=== PATIENT | female | born 1960 | race African-American/Black ===

== ENCOUNTER 2018-03-06 15:32 | Emergency (ER) | payer OTHER ==
[2018-03-06] MEDS ORDERED: NA CHLORIDE 0.9% 1,000 ML ONE ×2 (17:08→18:19)
[2018-03-06] MEDS ORDERED: PROMETHAZINE 25 MG/ML VIAL ONE ×2 (17:08→19:00)
[2018-03-06] MEDS ORDERED: MEPERIDINE HCL 25 MG/0.5 ML ONE ×2 (17:08→18:10)
[2018-03-06 18:02] LABS: Hematocrit 31.2 % (36.0-45.0)
[2018-03-06 18:06] LABS: Absolute Lymphocytes (CBC) 5.6 K/uL (0.7-4.9); Absolute Monocytes 1.6 K/uL (0.1-1.3); Absolute Neutrophil 12.8 K/uL (1.8-8.0); Basophils % 0.8 % (0-1.3); Eosinophils % 1.5 % (0-4.4); Lymphocytes % 27.5 % (15.3-44.8); MCH 22.8 pg (27.0-35.0); MCV 74.2 fL (80-100); Monocytes % 7.8 % (3.3-12.3); RBC Red Blood Cell Count 4.21 M/uL (3.86-4.86)
[2018-03-06 18:09] LABS: Potassium 3.8 mEq/L (3.6-5.0)
[2018-03-06 18:11] LABS: Urine Blood NEGATIVE (NEG); Urine Glucose NEGATIVE (NEG); Urine Protein NEGATIVE (NEG); Urine Specific Gravity 1.015 (1.005-1.030); Urine pH 5.5 (5.0-7.0)
[2018-03-06 18:15] LABS: Albumin 3.3 g/dL (3.2-5.5); Bilirubin Direct 0.1 mg/dL (0-0.2); Bilirubin Total 0.2 mg/dL (0.3-1.2); Protein, Total 7.2 g/dL (6.0-8.3)
--- NOTE | 2018-03-06 18:52 | RAD REPORT ---
EXAM DESCRIPTION: CT - Abdomen Pelvis W Contrast - 03/06/2018 6:44 pm CLINICAL HISTORY: Abdominal pain history of pancreatitis COMPARISON: CT imaging December 03 TECHNIQUE: CT imaging of the abdomen and pelvis was performed following hand injection of non-ionic IV contrast. No oral contrast given. Trace hyperdensity in the stomach may be ingested medication. All CT scans are performed using dose optimization technique as appropriate and may include automated exposure control or mA/KV adjustment according to patient size. FINDINGS: No suspicious findings in the lung bases. Liver and spleen show no suspicious findings. Gallbladder is absent. Biliary tree within normal limit s for a post cholecystectomy patient. No solid or cystic mass of the pancreas. No acute pancreatitis findings on CT imaging. Gallbladder and biliary tree are also without suspicious finding. Symmetric renal function is seen with no hydronephrosis or suspicious renal mass. No pyelonephritis o r acute renal parenchymal process. No urinary bladder abnormality. Uterus is absent. Ovaries are abse nt or atrophic. No dilated bowel loops or bowel wall thickening. No free air, free fluid or inflammatory stranding. No hernia, mass or bulky lymphadenopathy. The urinary bladder is without significant finding. No adr enal abnormality. No suspicious bony findings. IMPRESSION: Contrast enhanced CT abdomen and pelvis showing no significant or suspicious finding. Gallbladder is absent. Minimal biliary dilatation is not outside of normal range.
[2018-03-06 19:30] LABS: Urine White Blood Cell Casts OK
[2018-03-06 19:31] LABS: Blood Morphology Comment NOT SEEN (NOT SEEN); Platelet Estimate ADEQ
--- NOTE | 2018-03-06 19:48 | ER ---
Nurse's Notes [facility] Name: Leila Stein Age: 57 yrs Sex: Female : 1960 Arrival Date: 03/06/2018 Time: 15:34 Bed 13 Private MD: Jacinto Florez H Diagnosis: Abdominal and pelvic pain Presentation: 03/06 15:46 Presenting complaint: Patient states: N/V abdominal pain. Patient left [place] AMA aj last night after refusing to be admitted for pancreatitis. Patient then went to follow up with Dr Florez but was told to come to ER. Transition of care: patient was not received from another setting of care. Onset of symptoms was March 02, 2018. Care prior to arrival: None. 15:46 Method Of Arrival: Wheelchair aj 15:46 Acuity: JARROD 3 aj 16:28 Initial Sepsis Screen: Does the patient meet any 2 criteria? No. Patient's initial hj sepsis screen is negative. Does the patient have a suspected source of infection? No. Patient's initial sepsis screen is negative. Triage Assessment: 15:50 General: Appears in no apparent distress. uncomfortable, Behavior is calm, cooperative, aj appropriate for age. Pain: Complains of pain in right upper quadrant and left upper quadrant. Neuro: Level of Consciousness is awake, alert, obeys commands, Oriented to person, place, time, situation, Appropriate for age. Respiratory: Airway is patent Respiratory effort is even, unlabored, Respiratory pattern is regular, symmetrical. GI: Abdomen is flat, non-distended, Reports upper abdominal pain, nausea, vomiting. Derm: Skin is intact, is healthy with good turgor, Skin is pink, warm \T\ dry. normal. Historical: - Allergies: 15:50 Diphenhydramine; aj 15:50 Ibuprofen; aj 15:50 Kenalog; aj 15:50 levabid; aj 15:50 Levaquin; aj 15:50 Naloxone; aj 15:50 Penbutolol; aj 15:50 PENICILLINS; aj 15:50 PENTAZOCINE; aj 15:50 Tape; aj 15:50 Talwin; aj 15:50 Triamcinolone Acetonide; aj - Home Meds: 15:50 Alprazolam Oral [Active]; carvedilol 6.25 mg Oral tab 1 tab 2 times per day [Active]; aj Nexium Oral [Active]; Phenergan Oral [Active]; Tylenol #3 Oral [Active]; Creon 24,000-76,000 -120,000 unit Oral cpDR [Active]; dicyclomine 20 mg Oral tab 1 tab 3 times per day [Active]; gabapentin 100 mg Oral cap 3 caps 3 times per day [Active]; hydroxyzine HCl 25 mg Oral tab 1 tab every 4-6 hrs as needed [Active]; losartan 100 mg Oral tab 1 tab once daily [Active]; meclizine 12.5 mg Oral tab 2 tabs 3 times per day [Active]; metoclopramide HCl 10 mg Oral tab 1 tab twice a day [Active]; montelukast 10 mg Oral tab 1 tab once daily [Active]; Nexium 40 mg Oral cpDR 1 cap once daily [Active]; pantoprazole 40 mg Oral TbEC once daily [Active]; sertraline 50 mg Oral tab 1 tab once daily [Active]; potassium chloride 10 mEq Oral cpER 1 cap once daily [Active]; sucralfate 1 gram Oral tab 1 tab 4 times per day [Active]; Xanax 0.25 mg Oral tab 1 tab nightly [Active]; Zofran (as hydrochloride) 4 mg Oral tab 2 tabs 3 times per day for as needed [Active]; - PMHx: 15:50 CHF; Hypertension; Pancreatitis; aj - PSHx: 15:50 Hysterectomy; brain surgery; Cholecystectomy; neck; aj - Immunization history:: Adult Immunizations up to date. - Social history:: Smoking status: Patient/guardian denies using tobacco. Screenin:28 Abuse screen: Denies threats or abuse. Denies injuries from another. Nutritional hj screening: No deficits noted. Tuberculosis screening: No symptoms or risk factors identified. Fall Risk None identified. Assessment: 16:29 General: Appears in no apparent distress. uncomfortable, Behavior is calm, cooperative, hj appropriate for age. Pain: Complains of pain in abdomen and left upper quadrant and right upper quadrant. Neuro: Level of Consciousness is awake, alert, confused, Oriented to person, place, time, situation, Appropriate for age. Cardiovascular: Capillary refill < 3 seconds Patient's skin is warm and dry. Respiratory: Airway is patent Respiratory effort is even, unlabored, Respiratory pattern is regular, symmetrical. GI: Abdomen is non-distended. : No signs and/or symptoms were reported regarding the genitourinary system. EENT: No signs and/or symptoms were reported regarding the EENT system. Derm: No signs and/or symptoms reported regarding the dermatologic system. Musculoskeletal: No signs and/or symptoms reported regarding the musculoskeletal system. 17:30 Reassessment: Patient and/or family updated on plan of care and expected duration. Pain hj level reassessed. Patient is alert, oriented x 3, equal unlabored respirations, skin warm/dry/pink. awaiting results; for admit;. 17:59 Reassessment: awaiting results; complaints of pain 07/30; provider notified;. hj 18:37 Reassessment: Patient and/or family updated on plan of care and expected duration. Pain hj level reassessed. Patient is alert, oriented x 3, equal unlabored respirations, skin warm/dry/pink. wheeled to CT;. 19:10 Reassessment: Report received from AMAURY Mccoy. bs1 19:10 General: Appears in no apparent distress. Behavior is calm, flat. Pain: Complains of bs1 pain in abdomen and left upper quadrant and right upper quadrant. Neuro: Level of Consciousness is awake, alert, Oriented to person, place, time, situation. Cardiovascular: Denies chest pain, shortness of breath, Heart tones S1 S2 present Capillary refill < 3 seconds Patient's skin is warm and dry. Respiratory: Airway is patent Trachea midline Respiratory effort is even, unlabored, Respiratory pattern is regular, symmetrical, Breath sounds are clear bilaterally. GI: Abdomen is round non-distended, Bowel sounds present X 4 quads. Reports nausea. : No deficits noted. No signs and/or symptoms were reported regarding the genitourinary system. EENT: No deficits noted. No signs and/or symptoms were reported regarding the EENT system. Derm: Skin is intact, Skin is pink, warm \T\ dry. Musculoskeletal: Circulation, motion, and sensation intact. Capillary refill < 3 seconds, Range of motion: intact in all extremities. 20:00 Reassessment: Patient appears in no apparent distress at this time. Patient and/or bs1 family updated on plan of care and expected duration. Pain level reassessed. Patient is alert, oriented x 3, equal unlabored respirations, skin warm/dry/pink. Patient being discharged. Vital Signs: 15:50 BP 102 / 71; Pulse 78; Resp 19; Temp 97.8; Pulse Ox 98% on R/A; Weight 81.65 kg; Height aj 5 ft. 3 in. (160.02 cm); 16:30 BP 105 / 70; Pulse 79; Resp 18; Pulse Ox 100% on R/A; hj 17:30 BP 110 / 75; Pulse 75; Resp 18; Pulse Ox 100% on R/A; hj 18:38 BP 115 / 74; Pulse 78; Resp 18; Pulse Ox 100% on R/A; hj 19:38 BP 124 / 75; Pulse 71; Pulse Ox 97% on R/A; bs1 20:00 BP 120 / 74; Pulse 69; Resp 16; Temp 98(O); Pulse Ox 100% on R/A; Pain 3/10; bs1 15:50 Body Mass Index 31.89 (81.65 kg, 160.02 cm) aj ED Course: 15:34 Patient arrived in ED. mr 15:35 Jacinto Florez MD is Private Physician. mr 15:47 Triage completed. aj 15:50 Arm band placed on left wrist. Patient placed in waiting room, Patient notified of wait aj time. 16:27 Darius Perales, AMAURY is Primary Nurse. hj 16:27 Jeremías Teague PA is PHCP. jr8 16:27 Shan Dumont MD is Attending Physician. jr8 16:29 Patient has correct armband on for positive identification. Placed in gown. Bed in low hj position. Call light in reach. Side rails up X 1. 17:16 Initial lab(s) drawn, by me, sent to lab. Urine collected: clean catch specimen. hj Inserted saline lock: 22 gauge in right EJ, using aseptic technique. ,using aseptic technique. PORSHA Teague Blood collected. 18:08 Notified Nurse Practitioner and/or Physician Knocker Off of a critical lab result(s), iw WBC=20.6. 18:11 Radiology exam delayed due to lab results not completed at this time. (BUN/Creatinine). vm2 18:[address] via stretcher. kw1 18:44 CT completed. Patient tolerated procedure well. Patient moved back from CT. kw1 18:44 CT Abd/Pelvis - W/Contrast In Process Unspecified. EDMS 19:21 Primary Nurse role handed off by Darius Perales RN rg2 19:24 Pati Ramos, AMAURY is Primary Nurse. bs1 19:47 Jacinto Florez MD is Referral Physician. jr8 19:59 No provider procedures requiring assistance completed. IV discontinued, bleeding bs1 controlled, No redness/swelling at site. Pressure dressing applied. Administered Medications: 17:04 Drug: NS 0.9% 1000 ml Route: IV; Rate: 1000 ml; Site: right jugular; hj 20:03 Follow up: IV Status: Completed infusion bs1 17:04 Drug: Demerol 25 mg Route: IVP; Site: right jugular; hj 17:55 Follow up: Response: No adverse reaction; Pain is unchanged, physician notified iw 17:04 Drug: Phenergan 12.5 mg Route: IVP; Site: right jugular; hj 17:55 Follow up: Response: No adverse reaction iw 18:10 Drug: NS 0.9% 1000 ml Route: IV; Rate: 100 ml/hr; Site: right jugular; hj 20:03 Follow up: IV Status: Order to discontinue infusion bs1 20:03 Follow up: IV Intake: 100ml bs1 18:14 Drug: Demerol 25 mg Route: IVP; Site: right jugular; hj 18:16 Follow up: Response: No adverse reaction hj 19:11 Drug: Phenergan 12.5 mg Route: IVP; Site: right jugular; bs1 20:02 Follow up: Response: No adverse reaction bs1 Intake: 20:03 IV: 100ml; Total: 100ml. bs1 Outcome: 19:47 Discharge ordered by . jr8 19:59 Discharged to home ambulatory. bs1 19:59 Condition: stable 19:59 Discharge instructions given to patient, Instructed on discharge instructions, follow up and referral plans. Demonstrated understanding of instructions, follow-up care, Patient states understanding of POC and need for following up With Dr Florez. 20:04 Patient left the ED. bs1 Signatures: Dispatcher [employer] EDMS Haile Santos rg2 Alexandria Huber RN RN aj Rivera, Maria mr Elise Bustamante RN RN Jeremías Teague PA PA jr8 Darius Perales RN RN hj McGuire, Victoria [facility] Diamante Cook kw1 Pati Ramos, RN RN bs1
--- NOTE | 2018-03-06 19:48 | EDPHYS ---
Physician Documentation [facility] Name: Leila Stein Age: 57 yrs Sex: Female : 1960 Arrival Date: 03/06/2018 Time: 15:34 Bed 13 Private MD: Jacinto Florez H ED Physician Shan Dumont HPI: 03/06 16:56 This 57 yrs old Black Female presents to ER via Wheelchair with complaints of jr8 Nausea/Vomiting. 16:56 The patient presents to the emergency department with nausea, vomiting, abdominal pain. jr8 Onset: The symptoms/episode began/occurred acutely, 2 day(s) ago. Possible causes: panceatitis. The symptoms are aggravated by nothing. The symptoms are alleviated by nothing. Associated signs and symptoms: The patient has no apparent associated signs or symptoms. Severity of symptoms: At their worst the symptoms were moderate in the emergency department the symptoms are unchanged. The patient has experienced similar episodes in the past, several times. The patient has been recently seen by a physician:. Patient stated that she has history of pancreatitis. Had flare up two days ago that is not getting better. Went to see Dr. Florez today and was sent to ED . Historical: - Allergies: 15:50 Diphenhydramine; aj 15:50 Ibuprofen; aj 15:50 Kenalog; aj 15:50 levabid; aj 15:50 Levaquin; aj 15:50 Naloxone; aj 15:50 Penbutolol; aj 15:50 PENICILLINS; aj 15:50 PENTAZOCINE; aj 15:50 Tape; aj 15:50 Talwin; aj 15:50 Triamcinolone Acetonide; aj - Home Meds: 15:50 Alprazolam Oral [Active]; carvedilol 6.25 mg Oral tab 1 tab 2 times per day [Active]; aj Nexium Oral [Active]; Phenergan Oral [Active]; Tylenol #3 Oral [Active]; Creon 24,000-76,000 -120,000 unit Oral cpDR [Active]; dicyclomine 20 mg Oral tab 1 tab 3 times per day [Active]; gabapentin 100 mg Oral cap 3 caps 3 times per day [Active]; hydroxyzine HCl 25 mg Oral tab 1 tab every 4-6 hrs as needed [Active]; losartan 100 mg Oral tab 1 tab once daily [Active]; meclizine 12.5 mg Oral tab 2 tabs 3 times per day [Active]; metoclopramide HCl 10 mg Oral tab 1 tab twice a day [Active]; montelukast 10 mg Oral tab 1 tab once daily [Active]; Nexium 40 mg Oral cpDR 1 cap once daily [Active]; pantoprazole 40 mg Oral TbEC once daily [Active]; sertraline 50 mg Oral tab 1 tab once daily [Active]; potassium chloride 10 mEq Oral cpER 1 cap once daily [Active]; sucralfate 1 gram Oral tab 1 tab 4 times per day [Active]; Xanax 0.25 mg Oral tab 1 tab nightly [Active]; Zofran (as hydrochloride) 4 mg Oral tab 2 tabs 3 times per day for as needed [Active]; - PMHx: 15:50 CHF; Hypertension; Pancreatitis; aj - PSHx: 15:50 Hysterectomy; brain surgery; Cholecystectomy; neck; aj - Immunization history:: Adult Immunizations up to date. - Social history:: Smoking status: Patient/guardian denies using tobacco. ROS: 16:56 Eyes: Negative for injury, pain, redness, and discharge, ENT: Negative for injury, jr8 pain, and discharge, Neck: Negative for injury, pain, and swelling, Cardiovascular: Negative for chest pain, palpitations, and edema, Respiratory: Negative for shortness of breath, cough, wheezing, and pleuritic chest pain, Back: Negative for injury and pain, MS/Extremity: Negative for injury and deformity, Skin: Negative for injury, rash, and discoloration, Neuro: Negative for headache, weakness, numbness, tingling, and seizure. 16:56 Abdomen/GI: Positive for abdominal pain, nausea and vomiting, abdominal distension, Negative for diarrhea, constipation, abdominal cramps, anorexia, dysphagia, hematemesis, black/tarry stool, rectal pain, rectal bleeding, bowel incontinence, flatulence. Exam: 16:56 Eyes: Pupils equal round and reactive to light, extra-ocular motions intact. Lids and jr8 lashes normal. Conjunctiva and sclera are non-icteric and not injected. Cornea within normal limits. Periorbital areas with no swelling, redness, or edema. ENT: Nares patent. No nasal discharge, no septal abnormalities noted. Tympanic membranes are normal and external auditory canals are clear. Oropharynx with no redness, swelling, or masses, exudates, or evidence of obstruction, uvula midline. Mucous membranes moist. Neck: Trachea midline, no thyromegaly or masses palpated, and no cervical lymphadenopathy. Supple, full range of motion without nuchal rigidity, or vertebral point tenderness. No Meningismus. Cardiovascular: Regular rate and rhythm with a normal S1 and S2. No gallops, murmurs, or rubs. Normal PMI, no JVD. No pulse deficits. Respiratory: Lungs have equal breath sounds bilaterally, clear to auscultation and percussion. No rales, rhonchi or wheezes noted. No increased work of breathing, no retractions or nasal flaring. Back: No spinal tenderness. No costovertebral tenderness. Full range of motion. Skin: Warm, dry with normal turgor. Normal color with no rashes, no lesions, and no evidence of cellulitis. MS/ Extremity: Pulses equal, no cyanosis. Neurovascular intact. Full, normal range of motion. Neuro: Awake and alert, GCS 15, oriented to person, place, time, and situation. Cranial nerves II-XII grossly intact. Motor strength 5/5 in all extremities. Sensory grossly intact. Cerebellar exam normal. Normal gait. 16:56 Abdomen/GI: Inspection: distension, that is mild, Bowel sounds: active, all quadrants, Palpation: soft, in all quadrants, moderate abdominal tenderness, in the epigastric area, mass, is not appreciated, rebound tenderness, is not appreciated, voluntary guarding, is not appreciated, involuntary guarding, is not appreciated, no appreciated organomegaly, Indicators: McBurney's point is not tender, Martínez's sign is negative, Rovsing's sign is negative, Liver: no appreciated palpable abnormalities, tenderness, is not appreciated. Vital Signs: 15:50 BP 102 / 71; Pulse 78; Resp 19; Temp 97.8; Pulse Ox 98% on R/A; Weight 81.65 kg; Height aj 5 ft. 3 in. (160.02 cm); 16:30 BP 105 / 70; Pulse 79; Resp 18; Pulse Ox 100% on R/A; hj 17:30 BP 110 / 75; Pulse 75; Resp 18; Pulse Ox 100% on R/A; hj 18:38 BP 115 / 74; Pulse 78; Resp 18; Pulse Ox 100% on R/A; hj 19:38 BP 124 / 75; Pulse 71; Pulse Ox 97% on R/A; bs1 20:00 BP 120 / 74; Pulse 69; Resp 16; Temp 98(O); Pulse Ox 100% on R/A; Pain 3/10; bs1 15:50 Body Mass Index 31.89 (81.65 kg, 160.02 cm) aj MDM: 16:27 Patient medically screened. jr8 19:44 Data reviewed: vital signs, nurses notes, old medical records, lab test result(s), jr8 radiologic studies, CT scan, and as a result, I will discharge patient. Data interpreted: Pulse oximetry: on room air is 100 %. Interpretation: normal. Counseling: I had a detailed discussion with the patient and/or guardian regarding: the historical points, exam findings, and any diagnostic results supporting the discharge/admit diagnosis, lab results, radiology results, the need for outpatient follow up, a protection [employer], to return to the emergency department if symptoms worsen or persist or if there are any questions or concerns that arise at home. ED course: Patient sleeping in exam room. Counseled patient on labs and imaging. No acute pancreatitis or other acute abdominal finding. Patient upon old [facility] records has had this before and with extensive work up with no finding. White cell count elevated in past a few times as well. Discussed case with Dr. Feldman. Feels patient can go home and if she were to run fever or have any new development to come back. Patient is ok with this at this time . 03/06 16:28 Order name: Basic Metabolic Panel; Complete Time: 18:36 [facility] 03/06 16:28 Order name: CBC with Diff; Complete Time: 19:34 [facility] 03/06 16:28 Order name: Creatinine for Radiology; Complete Time: 18:09 [facility] 03/06 16:28 Order name: Hepatic Function; Complete Time: 18:36 03/06 16:28 Order name: Lipase; Complete Time: 18:36 [facility] 03/06 16:52 Order name: Urine Dipstick--Ancillary (enter results); Complete Time: 18:13 03/06 16:52 Order name: Urine --Ancillary (enter results); Complete Time: 18:13 03/06 18:08 Order name: CBC Smear Scan; Complete Time: 19:34 [facility] 03/06 18:09 Order name: CT Abd/Pelvis - W/Contrast; Complete Time: 18:53 [facility] 03/06 16:28 Order name: IV Saline Lock; Complete Time: 17:05 jr8 03/06 16:28 Order name: Labs collected and sent; Complete Time: 17:05 8 03/06 16:28 Order name: Urine Dipstick-Ancillary (obtain specimen); Complete Time: 17: 8 Administered Medications: 17:04 Drug: NS 0.9% 1000 ml Route: IV; Rate: 1000 ml; Site: right jugular; hj 20:03 Follow up: IV Status: Completed infusion bs1 17:04 Drug: Demerol 25 mg Route: IVP; Site: right jugular; hj 17:55 Follow up: Response: No adverse reaction; Pain is unchanged, physician notified iw 17:04 Drug: Phenergan 12.5 mg Route: IVP; Site: right jugular; hj 17:55 Follow up: Response: No adverse reaction iw 18:10 Drug: NS 0.9% 1000 ml Route: IV; Rate: 100 ml/hr; Site: right jugular; hj 20:03 Follow up: IV Status: Order to discontinue infusion bs1 20:03 Follow up: IV Intake: 100ml bs1 18:14 Drug: Demerol 25 mg Route: IVP; Site: right jugular; hj 18:16 Follow up: Response: No adverse reaction hj 19:11 Drug: Phenergan 12.5 mg Route: IVP; Site: right jugular; bs1 20:02 Follow up: Response: No adverse reaction bs1 Disposition: 03/06/18 19:47 Discharged to Home. Impression: Abdominal and pelvic pain. - Condition is Stable. - Discharge Instructions: Abdominal Pain, Adult. - Medication Reconciliation Form, Thank You Letter, Antibiotic Education, Prescription Opioid Use form. - Follow up: Jacinto Florez MD; When: 1 - 2 days; Reason: Recheck today's complaints, Continuance of care, Re-evaluation by your physician. - Problem is new. - Symptoms have improved. Addendum: 03/10/2018 07:11 Co-signature as Attending Physician, Shan Dumont MD. r n Signatures: Dispatcher [employer] Alexandria Chris RN RN Shan Ramirez MD MD rn Roszak, Josh, PA PA jr8 Darius Perales RN RN Pati Enriquez RN RN bs1 Elise Bustamante RN iw Corrections: (The following items were deleted from the chart) 03/06 20:04 19:47 03/06/2018 19:47 Discharged to Home. Impression: Abdominal and pelvic pain. bs1 Condition is Stable. Forms are Medication Reconciliation Form, Thank You Letter, Antibiotic Education, Prescription Opioid Use. Follow up: Jacinto Florez; When: 1 - 2 days; Reason: Recheck today's complaints, Continuance of care, Re-evaluation by your physician. Problem is new. Symptoms have improved. jr8
[2018-03-06 20:18] VITALS: BP 120/74; TEMP 98; O2SAT 100
== END 2018-03-06 20:04 | disposition home or self-care (01) ==
LOC: ER 15:32
DX: R10.2 Pelvic and perineal pain (principal); I10 Essential (primary) hypertension; I50.9 Heart failure, unspecified; Z88.0 Allergy status to penicillin; Z88.3 Allergy status to other anti-infective agents; Z88.6 Allergy status to analgesic agent; Z88.8 Allergy status to other drugs, medicaments and biological substances
CPT/HCPCS: 36415; 74177; 80048; 80076; 81003; 81025; 83690; 85025; 96361; 96374; 96375; 99284; J2175 ×2; J2550 ×2; J7030 ×2; Q9967

== ENCOUNTER 2018-03-19 18:08 | Observation (INO) | payer OTHER ==
[2018-03-19 19:34] LABS: Urine Blood NEGATIVE (NEG); Urine Glucose NEGATIVE (NEG); Urine Protein NEGATIVE (NEG); Urine pH 5.5 (5.0-7.0)
[2018-03-19 19:45] LABS: Absolute Neutrophil 11.2 K/uL (1.8-8.0); Eosinophils % 1.8 % (0-4.4); Hematocrit 32.7 % (36.0-45.0); Lymphocytes % 30.4 % (15.3-44.8); MCV 72.7 fL (80-100); MPV 8.2 fL (7.6-11.3); Monocytes % 10.3 % (3.3-12.3)
[2018-03-19 19:53] LABS: Potassium 3.7 mEq/L (3.6-5.0)
[2018-03-19] MEDS ORDERED: MEPERIDINE HCL 25 MG/0.5 ML ONE ×2 (19:56→23:14)
[2018-03-19] MEDS ORDERED: NA CHLORIDE 0.9% 500 ML ONE (19:56)
[2018-03-19] MEDS ORDERED: PROMETHAZINE 25 MG/ML VIAL ONE (19:56)
[2018-03-19 19:59] LABS: Albumin 3.4 g/dL (3.2-5.5); Bilirubin Direct 0.1 mg/dL (0-0.2); Bilirubin Total 0.2 mg/dL (0.3-1.2); Protein, Total 7.4 g/dL (6.0-8.3)
[2018-03-19 20:26] LABS: Urine Bacteria 20-50 /HPF (<20); Urine Culture Reflex Order REFLEXED; Urine RBC <5 /HPF (NONE SEEN)
[2018-03-19] MEDS ORDERED: ONDANSETRON 4 MG/2 ML VIAL ONE (21:03)
--- NOTE | 2018-03-19 22:19 | RAD REPORT ---
EXAM DESCRIPTION: CT - Abdomen Pelvis W Contrast - 03/19/2018 9:57 pm CLINICAL HISTORY: Abdominal pain. Nausea and vomiting x3 days COMPARISON: March 06, 2018 TECHNIQUE: Computed axial tomography of the abdomen and pelvis was obtained. 100 cc Isovue-300 is ad ministered intravenously. Oral contrast was given. All CT scans are performed using dose optimization technique as appropriate and may include automated exposure control or mA/KV adjustment according to patient size. FINDINGS: The liver, spleen, pancreas, adrenals and kidneys appear unremarkable. There is no evidence of diverticulitis . The gallbladder and uterus have been removed. The wall of the gastric antrum appears thickened IMPRESSION: Apparent thickening of the wall of the gastric antrum may be secondary to gastritis or incomplete distention Otherwise unremarkable exam
--- NOTE | 2018-03-19 22:45 | EDPHYS ---
Physician Documentation [facility] Name: Leila Stein Age: 57 yrs Sex: Female : 1960 Arrival Date: 03/19/2018 Time: 18:11 Bed 7 Private MD: out of town, doctor ED Physician Shan Dumont HPI: 03/19 19:39 This 57 yrs old Black Female presents to ER via Ambulatory with complaints of Abdominal rn Pain, Vomiting. 19:39 The patient presents to the emergency department with nausea, vomiting, abdominal pain. rn Onset: The symptoms/episode began/occurred 1 week(s) ago. Possible causes: flare up of bowel problem. The symptoms are aggravated by movement, pressure, food , The symptoms are alleviated by nothing. Severity of symptoms: At their worst the symptoms were moderate in the emergency department the symptoms are unchanged. The patient has experienced similar episodes in the past. The patient has not recently seen a physician. Hx of pancreatitis, hasn't had attack in a while per patient, + diffuse abd pain with vomiting, cannot keep solids/liquids down, 20# weight loss in 1 week per patient, had 2 BM today, sees dr quiroz for GI. . Historical: - Allergies: 18:25 Diphenhydramine; aa5 18:25 Ibuprofen; aa5 18:25 Kenalog; aa5 18:25 levabid; aa5 18:25 Levaquin; aa5 18:25 Naloxone; aa5 18:25 Penbutolol; aa5 18:25 PENICILLINS; aa5 18:25 PENTAZOCINE; aa5 18:25 Talwin; aa5 18:25 Tape; aa5 18:25 Triamcinolone Acetonide; aa5 18:25 Norepinephrine Bitartrate; aa5 - Home Meds: 03/20 00:03 Alprazolam Oral [Active]; carvedilol 6.25 mg Oral tab 1 tab 2 times per day [Active]; lp1 Creon 24,000-76,000 -120,000 unit Oral cpDR [Active]; dicyclomine 20 mg Oral tab 1 tab 3 times per day [Active]; gabapentin 100 mg Oral cap 3 caps 3 times per day [Active]; hydroxyzine HCl 25 mg Oral tab 1 tab every 4-6 hrs as needed [Active]; losartan 100 mg Oral tab 1 tab once daily [Active]; meclizine 12.5 mg Oral tab 2 tabs 3 times per day [Active]; metoclopramide HCl 10 mg Oral tab 1 tab twice a day [Active]; montelukast 10 mg Oral tab 1 tab once daily [Active]; Nexium 40 mg Oral cpDR 1 cap once daily [Active]; Nexium Oral [Active]; pantoprazole 40 mg Oral TbEC once daily [Active]; Phenergan Oral [Active]; potassium chloride 10 mEq Oral cpER 1 cap once daily [Active]; sertraline 50 mg Oral tab 1 tab once daily [Active]; sucralfate 1 gram Oral tab 1 tab 4 times per day [Active]; Tylenol #3 Oral [Active]; Xanax 0.25 mg Oral tab 1 tab nightly [Active]; Zofran (as hydrochloride) 4 mg Oral tab 2 tabs 3 times per day for as needed [Active]; - PMHx: 03/19 18:25 CHF; Hypertension; Pancreatitis; aa5 - PSHx: 18:25 Hysterectomy; brain surgery; Cholecystectomy; neck; aa5 - Immunization history:: Pneumococcal vaccine is up to date. - Social history:: Smoking status: Patient uses tobacco products, smokes one-half pack cigarettes per day. - Ebola Screening: : No symptoms or risks identified at this time. - Family history:: not pertinent. - Hospitalizations: : No recent hospitalization is reported. ROS: 19:39 Constitutional: Negative for fever, chills, and weight loss, Eyes: Negative for injury, rn pain, redness, and discharge, Neck: Negative for injury, pain, and swelling, Cardiovascular: Negative for chest pain, palpitations, and edema, Respiratory: Negative for shortness of breath, cough, wheezing, and pleuritic chest pain, Abdomen/GI: Negative for diarrhea, and constipation, Back: Negative for injury and pain, MS/Extremity: Negative for injury and deformity, Skin: Negative for injury, rash, and discoloration, Neuro: Negative for headache, numbness, tingling, and seizure. Exam: 19:39 Constitutional: This is a well developed, well nourished patient who is awake, alert, rn appears uncomfortable Head/Face: Normocephalic, atraumatic. Eyes: Pupils equal round and reactive to light, extra-ocular motions intact. Lids and lashes normal. Conjunctiva and sclera are non-icteric and not injected. Cornea within normal limits. Periorbital areas with no swelling, redness, or edema. ENT: dry MM Cardiovascular: Regular rate and rhythm with a normal S1 and S2. No gallops, murmurs, or rubs. Normal PMI, no JVD. No pulse deficits. Respiratory: Lungs have equal breath sounds bilaterally, clear to auscultation and percussion. No rales, rhonchi or wheezes noted. No increased work of breathing, no retractions or nasal flaring. Abdomen/GI: soft, + epigastric tenderness, no rebound, + guarding MS/ Extremity: Pulses equal, no cyanosis. Neurovascular intact. Full, normal range of motion. Equal circumference. Neuro: Awake and alert, GCS 15, oriented to person, place, time, and situation. Cranial nerves II-XII grossly intact. Motor strength 5/5 in all extremities. Sensory grossly intact. Vital Signs: 18:25 BP 125 / 77; Pulse 94; Resp 18 S; Temp 97.9(TE); Pulse Ox 100% on R/A; Weight 72.12 kg aa5 (R); Height 5 ft. 3 in. (160.02 cm) (R); Pain 10/10; 19:30 BP 122 / 68; Pulse 81; Resp 18; Pulse Ox 98% on R/A; lp1 20:00 BP 124 / 75; Pulse 78; Resp 18; Pulse Ox 99% on R/A; lp1 20:30 BP 137 / 88; Pulse 78; Resp 17; Pulse Ox 97% on R/A; lp1 21:30 BP 121 / 85; Pulse 81; Resp 15; Pulse Ox 96% on R/A; lp1 22:00 BP 122 / 74; Pulse 72; Resp 16; Pulse Ox 98% on R/A; lp1 23:00 BP 113 / 70; Pulse 77; Resp 16; Pulse Ox 97% on R/A; lp1 23:30 BP 117 / 82; Pulse 80; Resp 18; Temp 97.8(O); Pulse Ox 96% on R/A; lp1 18:25 Body Mass Index 28.17 (72.12 kg, 160.02 cm) aa MDM: 19:15 Patient medically screened. rn 22:41 Differential diagnosis: Nonspecific abd pain, gastritis, pancreatitis, viral rn gastroenteritis, gastroenteritis. Data reviewed: vital signs, nurses notes, lab test result(s), radiologic studies, CT scan, and as a result, I will admit patient. Counseling: I had a detailed discussion with the patient and/or guardian regarding: the historical points, exam findings, and any diagnostic results supporting the discharge/admit diagnosis, lab results, radiology results, the need for further work-up and treatment in the hospital. Response to treatment: There is no appreciated change of the patient's symptoms at this time, and as a result, I will admit patient. Admission orders: after a detailed discussion of the patient's condition and case, the admit orders are written by me. ED course: Pt still having a lot of pain, not able to tolerate PO, had pain meds and zofran at home that wasn't working, will observe overnight and have Dr Quiroz consulted in AM. Admitted to dr. combs. . 03/19 19:17 Order name: Basic Metabolic Panel; Complete Time: 20:32 rn 03/19 19:17 Order name: CBC with Diff; Complete Time: 20:32 rn 03/19 19:17 Order name: Creatinine for Radiology; Complete Time: 20:32 rn 03/19 19:17 Order name: Hepatic Function; Complete Time: 20:32 rn 03/19 19:17 Order name: Lipase; Complete Time: 20:32 rn 03/19 19:17 Order name: Urine Microscopic Only; Complete Time: 20:32 rn 03/19 19:21 Order name: CT Abd/Pelvis - W/Contrast; Complete Time: 22:22 rn 03/19 19:30 Order name: Urine Dipstick--Ancillary (enter results); Complete Time: 20:32 eb 03/19 20:28 Order name: Urine Culture EDNC 03/19 19:17 Order name: IV Saline Lock; Complete Time: 19:36 rn 03/19 19:17 Order name: Labs collected and sent; Complete Time: 19:36 rn 03/19 19:17 Order name: Urine Dipstick-Ancillary (obtain specimen); Complete Time: 19:39 rn 03/19 19:46 Order name: EKG; Complete Time: 19:47 rn 03/19 19:46 Order name: EKG - Nurse/Tech; Complete Time: 20:07 rn Administered Medications: 20:05 Drug: Phenergan 25 mg {Note: Left upper chest.} Route: IVP; Site: Other; lp1 21:06 Follow up: Response: Nausea unchanged lp1 20:05 Drug: Demerol 25 mg Route: IVP; Site: Other; lp1 21:06 Follow up: Response: Pain is decreased lp1 20:05 Drug: NS 0.9% 500 ml Route: IV; Rate: bolus; Site: Other; lp1 21:06 Follow up: IV Status: Completed infusion; IV Intake: 500ml lp1 21:06 Drug: Zofran 4 mg Route: IVP; Site: Other; lp1 21:30 Follow up: Response: Nausea is decreased lp1 23:16 Drug: Demerol 25 mg Route: IVP; Site: Other; lp1 03/20 00:06 Follow up: Response: Pain is decreased lp1 Disposition: 03/19/18 22:44 Hospitalization ordered by Isaías Batista for Observation. Preliminary diagnosis are Gastritis, unspecified, Other chronic pancreatitis, Intractable vomiting and pain. - Bed requested for Telemetry/MedSurg (observation). - Status is Observation. lp1 - Condition is Stable. - Problem is an ongoing problem. - Symptoms are unchanged. UTI on Admission? No Signatures: Dispatcher [employer] EDMS Shan Dumont MD MD rn Calderon, Audri RN RN aa5 Maribel Orozco RN RN lp1 Shannan Loaiza RN RN cg Corrections: (The following items were deleted from the chart) 03/19 22:54 22:44 Hospitalization Ordered by Isaías Batista MD for Observation. Preliminary cg diagnosis is Gastritis, unspecified; Other chronic pancreatitis; Intractable vomiting and pain. Bed requested for Telemetry/MedSurg (observation). Status is Observation. Condition is Stable. Problem is an ongoing problem. Symptoms are unchanged. UTI on Admission? No. rn 03/20 00:13 03/19 22:54 03/19/2018 22:44 Hospitalization Ordered by Isaías Batista MD for lp1 Observation. Preliminary diagnosis is Gastritis, unspecified; Other chronic pancreatitis; Intractable vomiting and pain. Bed requested for Telemetry/MedSurg (observation). Status is Observation. Condition is Stable. Problem is an ongoing problem. Symptoms are unchanged. UTI on Admission? No. cg
--- NOTE | 2018-03-19 22:45 | ER ---
Nurse's Notes [facility] Name: Leila Stein Age: 57 yrs Sex: Female : 1960 Arrival Date: 03/19/2018 Time: 18:11 Bed 7 Private MD: out of town, doctor Diagnosis: Gastritis, unspecified;Other chronic pancreatitis;Intractable vomiting and pain Presentation: 03/19 18:22 Presenting complaint: Patient states: abd cramping with N/V x 3 days ago. Pt states aa5 "I've lost 20 lbs over the last 3 days and I am so weak". Transition of care: patient was not received from another setting of care. Onset of symptoms was February 2018. Risk Assessment: Do you want to hurt yourself or someone else? Patient reports no desire to harm self or others. Initial Sepsis Screen: Does the patient meet any 2 criteria? No. Patient's initial sepsis screen is negative. Does the patient have a suspected source of infection? No. Patient's initial sepsis screen is negative. Care prior to arrival: None. 18:22 Method Of Arrival: Ambulatory aa5 18:22 Acuity: JARROD 3 aa5 Historical: - Allergies: 18:25 Diphenhydramine; aa5 18:25 Ibuprofen; aa5 18:25 Kenalog; aa5 18:25 levabid; aa5 18:25 Levaquin; aa5 18:25 Naloxone; aa5 18:25 Penbutolol; aa5 18:25 PENICILLINS; aa5 18:25 PENTAZOCINE; aa5 18:25 Talwin; aa5 18:25 Tape; aa5 18:25 Triamcinolone Acetonide; aa5 18:25 Norepinephrine Bitartrate; aa5 - Home Meds: 03/20 00:03 Alprazolam Oral [Active]; carvedilol 6.25 mg Oral tab 1 tab 2 times per day [Active]; lp1 Creon 24,000-76,000 -120,000 unit Oral cpDR [Active]; dicyclomine 20 mg Oral tab 1 tab 3 times per day [Active]; gabapentin 100 mg Oral cap 3 caps 3 times per day [Active]; hydroxyzine HCl 25 mg Oral tab 1 tab every 4-6 hrs as needed [Active]; losartan 100 mg Oral tab 1 tab once daily [Active]; meclizine 12.5 mg Oral tab 2 tabs 3 times per day [Active]; metoclopramide HCl 10 mg Oral tab 1 tab twice a day [Active]; montelukast 10 mg Oral tab 1 tab once daily [Active]; Nexium 40 mg Oral cpDR 1 cap once daily [Active]; Nexium Oral [Active]; pantoprazole 40 mg Oral TbEC once daily [Active]; Phenergan Oral [Active]; potassium chloride 10 mEq Oral cpER 1 cap once daily [Active]; sertraline 50 mg Oral tab 1 tab once daily [Active]; sucralfate 1 gram Oral tab 1 tab 4 times per day [Active]; Tylenol #3 Oral [Active]; Xanax 0.25 mg Oral tab 1 tab nightly [Active]; Zofran (as hydrochloride) 4 mg Oral tab 2 tabs 3 times per day for as needed [Active]; - PMHx: 03/19 18:25 CHF; Hypertension; Pancreatitis; aa5 - PSHx: 18:25 Hysterectomy; brain surgery; Cholecystectomy; neck; aa5 - Immunization history:: Pneumococcal vaccine is up to date. - Social history:: Smoking status: Patient uses tobacco products, smokes one-half pack cigarettes per day. - Ebola Screening: : No symptoms or risks identified at this time. - Family history:: not pertinent. - Hospitalizations: : No recent hospitalization is reported. Screenin:45 Abuse screen: Denies threats or abuse. Denies injuries from another. Nutritional lp1 screening: No deficits noted. Tuberculosis screening: No symptoms or risk factors identified. 23:46 Fall Risk Total Esquivel Fall Scale indicates High Risk Score (45 or more points). Fall lp1 prevention measures have been instituted. Side Rails Up X 2 As available patient and family educated on Fall Prevention Program and Strategies. Assessment: 18:45 General: Appears in no apparent distress. uncomfortable, Behavior is calm, cooperative, lp1 appropriate for age. Pain: Complains of pain in abdomen diffusely Pain does not radiate. Pain Quality of pain is described as aching, crampy, Pain began 2-3 days ago. Is intermittent. Neuro: Level of Consciousness is awake, alert, obeys commands, Oriented to person, place, time, situation, Speech is normal, Facial symmetry appears normal. Cardiovascular: Patient's skin is warm and dry. Respiratory: Airway is patent Respiratory effort is even, unlabored, Respiratory pattern is regular, symmetrical. GI: Abdomen is round distended, Bowel sounds present X 4 quads. Abd is soft X 4 quads Abd is non tender X 4 quads Reports nausea, vomiting. : No signs and/or symptoms were reported regarding the genitourinary system. EENT: No signs and/or symptoms were reported regarding the EENT system. Derm: No signs and/or symptoms reported regarding the dermatologic system. Skin is pink, warm \\T\\ dry. normal. Musculoskeletal: No signs and/or symptoms reported regarding the musculoskeletal system. Circulation, motion, and sensation intact. 20:20 Reassessment: CT notified of patient completing oral contrast at this time. lp1 21:00 Reassessment: Patient states continued nausea at this time. lp1 21:27 Reassessment: Patient and/or family updated on plan of care and expected duration. Pain lp1 level reassessed. Patient resting, eyes closed, respirations unlabored. 22:24 Reassessment: Patient states nausea and pain returning to general abdomen; 8/10 on pain lp1 scale. 23:30 Reassessment: Patient appears in no apparent distress at this time. Patient and/or lp1 family updated on plan of care and expected duration. Pain level reassessed. Patient resting, eyes closed, respirations unlabored; Aware of admission. Vital Signs: 18:25 BP 125 / 77; Pulse 94; Resp 18 S; Temp 97.9(TE); Pulse Ox 100% on R/A; Weight 72.12 kg aa5 (R); Height 5 ft. 3 in. (160.02 cm) (R); Pain 10/10; 19:30 BP 122 / 68; Pulse 81; Resp 18; Pulse Ox 98% on R/A; lp1 20:00 BP 124 / 75; Pulse 78; Resp 18; Pulse Ox 99% on R/A; lp1 20:30 BP 137 / 88; Pulse 78; Resp 17; Pulse Ox 97% on R/A; lp1 21:30 BP 121 / 85; Pulse 81; Resp 15; Pulse Ox 96% on R/A; lp1 22:00 BP 122 / 74; Pulse 72; Resp 16; Pulse Ox 98% on R/A; lp1 23:00 BP 113 / 70; Pulse 77; Resp 16; Pulse Ox 97% on R/A; lp1 23:30 BP 117 / 82; Pulse 80; Resp 18; Temp 97.8(O); Pulse Ox 96% on R/A; lp1 18:25 Body Mass Index 28.17 (72.12 kg, 160.02 cm) aa5 ED Course: 18:11 Patient arrived in ED. mr 18:12 out of town, doctor is Private Physician. mr 18:23 Triage completed. aa5 18:25 Arm band placed on. aa5 18:45 Patient has correct armband on for positive identification. Bed in low position. Call lp1 light in reach. Side rails up X 1. 18:45 No provider procedures requiring assistance completed. lp1 18:45 Missed attempt(s): 22 gauge in right forearm. Bleeding controlled, band aid applied, lp1 catheter tip intact. 18:50 Missed attempt(s): 22 gauge in left forearm. Bleeding controlled, band aid applied, lp1 catheter tip intact. 18:58 Maribel Orozco RN is Primary Nurse. lp1 19:15 Shan Dumont MD is Attending Physician. rn 19:32 Warm blanket given. Pulse ox on. NIBP on. rg2 19:32 Initial lab(s) drawn, by or, sent to lab. Inserted saline lock: 22 gauge in left ,using rg2 aseptic technique. upper chest Blood collected. 21:[address] via wheelchair. nj 21:57 CT Abd/Pelvis - W/Contrast In Process Unspecified. EDMS 22:10 CT completed. Patient moved back from CT. 22:43 Isaías Batista MD is Hospitalizing Provider. rn 23:58 Patient admitted, IV remains in place. lp1 Administered Medications: 20:05 Drug: Phenergan 25 mg {Note: Left upper chest.} Route: IVP; Site: Other; lp1 21:06 Follow up: Response: Nausea unchanged lp1 20:05 Drug: Demerol 25 mg Route: IVP; Site: Other; lp1 21:06 Follow up: Response: Pain is decreased lp1 20:05 Drug: NS 0.9% 500 ml Route: IV; Rate: bolus; Site: Other; lp1 21:06 Follow up: IV Status: Completed infusion; IV Intake: 500ml lp1 21:06 Drug: Zofran 4 mg Route: IVP; Site: Other; lp1 21:30 Follow up: Response: Nausea is decreased lp1 23:16 Drug: Demerol 25 mg Route: IVP; Site: Other; lp1 03/20 00:06 Follow up: Response: Pain is decreased lp1 Intake: 03/19 21:06 IV: 500ml; Total: 500ml. lp1 Outcome: 22:44 Decision to Hospitalize by Provider. rn 23:58 Condition: stable lp1 23:58 Instructed on the need for admit. 03/20 00:05 Admitted to Tele accompanied by tech, room 430, with chart, Report called to Ney Aquino LVN 00:13 Patient left the ED. lp1 Signatures: Dispatcher [employer] EDMS Haile Santos2 Jenny Sun Shelton, Shan Zambrano MD MD rn Calderon, Audri, RN RN aa5 Maribel Orozco RN RN lp1 Jacky Romero
--- NOTE | 2018-03-19 23:42 | P.HP ---
Certification for Inpatient Patient admitted to: Observation With expected LOS: <2 Midnights Practitioner: I am a practitioner with admitting privileges, knowledge of patient current condition, hospital course, and medical plan of care. Services: Services provided to patient in accordance with Admission requirements found in Title 42 Section 412.3 of the Code of Federal Regulations Patient History Date of Service: 03/19/18 Reason for admission: gastritis, nasuea/vomiting History of Present Illness: Ms Stein is a 57 years old woman with history of CAD, pancreatitis, mitral valve prolapse, COPD, who start with abdominal pain about 3 days ago. The pain was associated with nausea and vomiting. She states the pain in her abdomen is diffuse but mostly localized in epigastric area. Intensity of the pain is 10/ 10. She denied any diarrhea, fever or chills. The patient says she lost some weight lately since she is not able to keep food down due to vomiting. At arrival she was afebrile, WBC elevated 19.8K, lipase slightly elevated. CT abd/ pelvis shows normal pancreas but thickening of the wall of the gastric antrum may be secondary to gastritis or incomplete distention. Allergies diphenhydramine HCl [From Benadryl] Allergy (Severe, Verified 07/11/12 21:08) Anaphylaxis pentazocine lactate [From Talwin] Allergy (Severe, Verified 07/11/12 21:08) Anaphylaxis triamcinolone acetonide [From Kenalog] Allergy (Severe, Verified 07/11/12 21:08) Anaphylaxis hyoscyamine sulfate [From Levbid] Allergy (Verified 08/07/17 14:43) Unknown ibuprofen Allergy (Verified 06/11/15 20:13) Itching/Hives/Rash levofloxacin Allergy (Verified 06/11/15 20:13) Itching/Hives/Rash naloxone Allergy (Verified 08/07/17 14:43) Unknown penbutolol Allergy (Verified 08/07/17 14:43) Unknown Penicillins Allergy (Verified 06/11/15 20:13) Itching/Hives/Rash pentazocine [From Talwin] Allergy (Unverified 10/12/17 21:48) Unknown le Allergy (Uncoded 08/06/17 09:14) Unknown levabid Allergy (Uncoded 10/12/17 21:48) Unknown PCN Allergy (Uncoded 09/09/15 02:15) Unknown Tape Allergy (Uncoded 08/06/17 09:14) Unknown Tria Allergy (Uncoded 12/17/17 15:10) Unknown Triam Allergy (Uncoded 03/06/18 20:09) Unknown Triamcinolone A Allergy (Uncoded 12/03/17 14:03) Unknown Triamcinolone Acetoni Allergy (Uncoded 10/12/17 21:48) Unknown Home Medications: Albuterol Neb [Proventil 0.083% Neb Soln] 2.5 mg IH Q6HP PRN 07/12/12 Alprazolam [Xanax*] 0.25 mg PO BEDTIME 07/12/12 Hydroxyz 25 mg PO Q6H PRN 07/12/12 Ipratrop/Albuterol Inhaler [Combivent*] 2 puff IH QID 07/12/12 Losartan Potassium 100 mg PO DAILY 07/12/12 Carvedilol [Coreg*] 6.25 mg PO BID 06/11/15 Meclizine HCl [Antivert*] 12.5 mg PO TID PRN 06/11/15 Lactulose 15 ml PO BID 08/06/17 Metoclopramide HCl [Reglan] 10 mg PO BID 08/06/17 Sertraline [Zoloft*] 50 mg PO DAILY 08/07/17 Esomeprazole Magnesium 40 mg PO DAILY 12/17/17 Gabapentin [Neurontin*] 200 mg PO BID 12/17/17 Lipase/Protease/Amylase [Creon Dr 12,000 Units Capsule] 6 tab PO ACHS 12/17/17 Montelukast [Singulair*] 10 mg PO DAILY 12/17/17 Ondansetron HCl 4 mg PO Q8H PRN 12/17/17 Potassium Chloride 10 meq PO DAILY 12/17/17 Sucralfate [Carafate*] 1 gm PO ACHS 12/17/17 - Past Medical/Surgical History Diabetic: No -: pancreatitis -: mitral valve prolapse -: HTN -: CHF -: COPD -: PA in 2013 -: appendenctomy -: cholecystectomy -: brain sx-damaged nerve -: neck sx - Family History Father -: Cancer Notes: lung cancer Mother -: Cancer Notes: colon cancer - Social History Smoking Status: Current every day smoker Counseled patient to stop smoking for: less than 10 minutes Alcohol use: No CD- Drugs: No Caffeine use: Yes Review of Systems 10-point ROS is otherwise unremarkable Physical Examination - Physical Exam General: Alert, In no apparent distress HEENT: Atraumatic, PERRLA, Mucous membr. moist/pink, EOMI, Sclerae nonicteric Neck: Supple, 2+ carotid pulse no bruit, No LAD, Without JVD or thyroid abnormality Respiratory: Clear to auscultation bilaterally, Normal air movement Cardiovascular: Regular rate/rhythm, Normal S1 S2 Gastrointestinal: Normal bowel sounds, Tenderness (diffuse, unable to palpate, mostly in epigastric.) Musculoskeletal: No tenderness Integumentary: No rashes Neurological: Normal speech, Normal strength at 5/5 x4 extr, Normal tone, Normal affect Lymphatics: No axilla or inguinal lymphadenopathy - Studies Laboratory Data (last 24 hrs) 03/19/18 19:30: Creatinine 0.93 03/19/18 19:30: WBC 19.8 H, Hgb 10.8 L, Hct 32.7 L, Plt Count 363 03/19/18 19:30: Sodium 133 L, Potassium 3.7, BUN 13, Creatinine 0.91, Glucose 103, Total Bilirubin 0.2 L, AST 18, ALT 14, Alkaline Phosphatase 117, Lipase 63 H Assessment and Plan - Problems (Diagnosis) (1) Gastritis Current Visit: Yes Status: Acute Qualifiers: Gastritis type: unspecified gastritis Chronicity: acute Gastritis bleeding: without bleeding Qualified Code(s): K29.00 - Acute gastritis without bleeding (2) Nausea & vomiting Current Visit: No Status: Acute Qualifiers: Vomiting type: unspecified Vomiting Intractability: intractable Qualified Code(s): R11.2 - Nausea with vomiting, unspecified (3) COPD (chronic obstructive pulmonary disease) Onset Date: 12/18/17 Current Visit: No Status: Chronic Qualifiers: COPD type: unspecified COPD Qualified Code(s): J44.9 - Chronic obstructive pulmonary disease, unspecified - Plan Will admit the patient under observation due to severe abdominal pain associated with nausea and vomiting, possible secondary to gastritis. Will give PPI, and symptomatic medication for n/v and pain. Consult Dr Florez for evaluation and recommendations. - Advance Directives Does patient have a Living Will: No Does patient have a Durable POA for Healthcare: No - Code Status/Comfort Care Code Status Assessed: Yes Code Status: Full Code
[2018-03-20] MEDS ORDERED: SODIUM CHLORIDE 0.9% 10ML INJ IV PRN (00:41)
[2018-03-20] MEDS ORDERED: ACETAMINOPHEN 500 MG TAB PO PRN (00:41)
[2018-03-20 00:42] VITALS: BMI 28.1
[2018-03-20] MEDS ORDERED: PANTOPRAZOLE 40 MG INJ ONE (00:57)
[2018-03-20] MEDS ORDERED: ONDANSETRON 4 MG/2 ML VIAL ONE ×2 (00:58→13:08)
[2018-03-20] MEDS: PANTOPRAZOLE 40 MG INJ IVP SCH ×2 (01:07→08:18)
[2018-03-20] MEDS: ONDANSETRON 4 MG/2 ML VIAL IV PRN ×5 (01:07→22:24)
[2018-03-20] MEDS: NA CHLORIDE 0.9% 1,000 ML IV SCH ×3 (01:07→20:41)
[2018-03-20] MEDS: Morphine 2 MG/2 ML SYR IV PRN ×3 (01:07→08:49)
[2018-03-20 04:13] LABS: Absolute Lymphocytes (CBC) 5.5 K/uL (0.7-4.9); Absolute Monocytes 1.7 K/uL (0.1-1.3); Absolute Neutrophil 10.8 K/uL (1.8-8.0); Basophils % 0.4 % (0-1.3); Eosinophils % 2.3 % (0-4.4); Hematocrit 30.7 % (36.0-45.0); MCH 23.2 pg (27.0-35.0); MCV 73.5 fL (80-100); MPV 8.4 fL (7.6-11.3); RBC Red Blood Cell Count 4.18 M/uL (3.86-4.86)
[2018-03-20 04:24] LABS: Potassium 3.5 mEq/L (3.6-5.0)
[2018-03-20] MEDS ORDERED: KCL 20 MEQ/100 mL IVPB 20 MEQ/100 ML BAG IV SCH (08:00)
--- NOTE | 2018-03-20 10:36 | EKG ---
Test Date: 2018-03-19 Test Time: 19:57:32 Stove Carriage Operator: ZACH MEASUREMENT RESULTS: Intervals: Rate: 80 ID: [id number] QRSD: 74 QT: 346 QTc: 399 Blanchard: P: 53 ID: [id number] QRS: -9 T: 6 INTERPRETIVE STATEMENTS: Normal sinus rhythm Moderate voltage criteria for LVH, may be normal variant Borderline ECG Compared to ECG 12/17/2017 09:25:11 Left ventricular hypertrophy now present T-wave abnormality no longer present Electronically Signed On 03-20-18 10:34:53 CDT by Lokesh Motta
[2018-03-20] MEDS ORDERED: Ringers Lactate 1,000 ML IV ONE (12:25)
[2018-03-20] MEDS ORDERED: PROPOFOL 200 MG/20 ML VIAL IV ONE (12:43)
--- NOTE | 2018-03-20 13:02 | ENDO RPT ---
[address], [address] EGD PROCEDURE REPORT EXAM DATE: 03/20/2018 PATIENT NAME: Leila Stein MR#: [id number] BIRTHDATE: 1960 ATTENDING: Jacinto Florez Dr STATUS: inpatient - [facility] CEMENT DESPATCH OPERATOR: Eve Swanson and Indu Valdes RN INDICATIONS: The patient is a 57 yr old Female here for an EGD due to mid epigastric abdominal pain, abnormal CT abdomen/pelvis revealing thickened gastric wall, iron deficiency anemia, and nausea and vomiting PROCEDURE PERFORMED: EGD with biopsy MEDICATIONS: Per Anesthesia. TOPICAL ANESTHETIC: none CONSENT: The patient understands the risks and benefits of the procedure and understands that these risks include, but are not limited to: sedation, allergic reaction, infection, perforation and/or bleeding. Alternative means of evaluation and treatment include, among others: physical exam, x-rays, and/or surgical intervention. The patient elects to proceed with this endoscopic procedure. DESCRIPTION OF PROCEDURE: During intra-op preparation period all mechanical medical equipment was checked for proper function. Hand hygiene and appropriate measures for infection prevention was taken. Procedure, possible complications, and alternatives including but not limited to the possibility of bleeding, perforation, tear, infection, sepsis, need for surgery, need for blood transfusion, and anesthesia related complications were explained to the patient. After the risks, benefits and alternatives of the procedure were thoroughly explained, Informed consent was verified, confirmed and timeout was successfully executed by the treatment team. The patient was placed in the left lateral position. The patient was anesthetized with topical anesthesia. Through the anesthetized oropharyngeal area, the scope was passed without any difficulty. The Pentax EG-[id number] ([id number]) endoscope was introduced through the mouth and advanced to the second portion of the duodenum. Retroflexed views revealed a small hiatal hernia. The gastroscope was then slowly withdrawn and removed. A small hiatal hernia was found. Gastric biopsies obtained for non-ulcer dyspepsia. Small bowel biopsies obtained with history of iron deficiency anemia. ADVERSE EVENTS: There were no complications. IMPRESSIONS: 1. Small hiatal hernia 2. Gastric biopsies obtained for non-ulcer dyspepsia 3. Small bowel biopsies obtained with history of iron deficiency anemia RECOMMENDATIONS: 1. await biopsy results 2. acid suppression therapy REPEAT EXAM: Jacinto Florez Dr eSigned: Jacinto Florez Dr 03/20/2018 1:01 PM cc: CPT CODES: ICD9 CODES: PATIENT NAME: Leila Stein MR#: [id number]
[2018-03-20] MEDS ORDERED: MEPERIDINE HCL 25 MG/0.5 ML ONE (13:25)
[2018-03-20 13:59] VITALS: O2SAT 99
--- NOTE | 2018-03-20 16:01 | P.PN ---
Subjective Date of Service: 03/20/18 Chief Complaint: gastritis, nasuea/vomiting Pt seen and examined at bedside with RN. Case DW with GI. Scheduled for EGD today. Currently complains of having Abd pain and nausea. No other complains to offer. Review of Systems General: As per HPI Physical Examination - Vital Signs Temperature: 97.5 F Blood Pressure: 117/59 Pulse: 74 Respirations: 16 Pulse Ox (%): 97 - Physical Exam General: Alert, In no apparent distress HEENT: Atraumatic Neck: Supple Respiratory: Clear to auscultation bilaterally, Normal air movement Cardiovascular: Regular rate/rhythm, Normal S1 S2 Gastrointestinal: Normal bowel sounds, Soft and benign, Tenderness (Epigastric area) Musculoskeletal: No tenderness Integumentary: No rashes Neurological: Normal speech, Normal tone, Normal affect Lymphatics: No axilla or inguinal lymphadenopathy - Studies Laboratory Data (last 24 hrs) 03/19/18 19:30: Creatinine 0.93 03/19/18 19:30: WBC 19.8 H, Hgb 10.8 L, Hct 32.7 L, Plt Count 363 03/19/18 19:30: Sodium 133 L, Potassium 3.7, BUN 13, Creatinine 0.91, Glucose 103, Total Bilirubin 0.2 L, AST 18, ALT 14, Alkaline Phosphatase 117, Lipase 63 H Medications List Reviewed: Yes Assessment & Plan - Problems (Diagnosis) (1) Gastritis Onset Date: 03/20/18 Current Visit: Yes Status: Acute Plan: Acute Gastritis with intratable pain -GI consulted. -Scheduled for EGD today -Pain mgmt and zofran for nausea and vomiting -Will f/u with GI post procedure Qualifiers: Gastritis type: unspecified gastritis Chronicity: acute Gastritis bleeding: without bleeding Qualified Code(s): K29.00 - Acute gastritis without bleeding (2) Nausea & vomiting Onset Date: 03/20/18 Current Visit: Yes Status: Acute Plan: zofran for Nausea -Improved today Qualifiers: Vomiting type: unspecified Vomiting Intractability: intractable Qualified Code(s): R11.2 - Nausea with vomiting, unspecified (3) Tobacco abuse Onset Date: 08/06/17 Current Visit: No Status: Chronic (4) CHF (congestive heart failure) Onset Date: 12/18/17 Current Visit: No Status: Chronic Qualifiers: Heart failure type: unspecified Heart failure chronicity: unspecified Qualified Code(s): I50.9 - Heart failure, unspecified (5) CLL (chronic lymphocytic leukemia) Onset Date: 12/18/17 Current Visit: No Status: Chronic (6) COPD (chronic obstructive pulmonary disease) Onset Date: 12/18/17 Current Visit: No Status: Chronic Qualifiers: COPD type: unspecified COPD Qualified Code(s): J44.9 - Chronic obstructive pulmonary disease, unspecified (7) HTN (hypertension) Onset Date: 06/13/15 Current Visit: No Status: Chronic Qualifiers: Hypertension type: essential hypertension Discharge Plan: Home Plan to discharge in: 24 Hours - Code Status/Comfort Care Code Status Assessed: Yes Critical Care: No
[2018-03-20] MEDS: TRAMADOL HCL 50 MG TAB PO PRN ×2 (16:23→22:24)
[2018-03-21] MEDS: NA CHLORIDE 0.9% 1,000 ML IV SCH ×2 (01:52→06:41)
[2018-03-21] MEDS: TRAMADOL HCL 50 MG TAB PO PRN ×2 (04:22→10:21)
[2018-03-21] MEDS: ONDANSETRON 4 MG/2 ML VIAL IV PRN ×2 (04:22→10:21)
[2018-03-21 05:36] LABS: Magnesium 1.8 mg/dL (1.8-2.5); Potassium 3.4 mEq/L (3.6-5.0)
[2018-03-21] MEDS ORDERED: MAGNESIUM SULFATE 1 gm IVPB 1 GM/100 ML BAG IV ONE (06:30)
[2018-03-21] MEDS ORDERED: POTASSIUM CL SA 10 MEQ TAB PO ONE (07:00)
[2018-03-21] MEDS ORDERED: PANTOPRAZOLE 40MG TABLET PO SCH (07:30)
[2018-03-21 08:29] VITALS: BP 119/59; TEMP 97.7
--- NOTE | 2018-03-21 11:58 | P.DS ---
Admission Date: 03/19/18 Discharge Date: 03/21/18 Disposition: ROUTINE DISCHARGE Discharge Condition: GOOD Reason for Admission: gastritis, nasuea/vomiting Consultations: GI Procedures: EGD - Gastritis - Problems (1) Gastritis Onset Date: 03/20/18 Status: Acute Qualifiers: Gastritis type: unspecified gastritis Chronicity: acute Gastritis bleeding: without bleeding Qualified Code(s): K29.00 - Acute gastritis without bleeding (2) Nausea & vomiting Onset Date: 03/20/18 Status: Acute Qualifiers: Vomiting type: unspecified Vomiting Intractability: intractable Qualified Code(s): R11.2 - Nausea with vomiting, unspecified (3) Tobacco abuse Onset Date: 08/06/17 Status: Chronic (4) CHF (congestive heart failure) Onset Date: 12/18/17 Status: Chronic Qualifiers: Heart failure type: unspecified Heart failure chronicity: unspecified Qualified Code(s): I50.9 - Heart failure, unspecified (5) CLL (chronic lymphocytic leukemia) Onset Date: 12/18/17 Status: Chronic (6) COPD (chronic obstructive pulmonary disease) Onset Date: 12/18/17 Status: Chronic Qualifiers: COPD type: unspecified COPD Qualified Code(s): J44.9 - Chronic obstructive pulmonary disease, unspecified (7) HTN (hypertension) Onset Date: 06/13/15 Status: Chronic Qualifiers: Hypertension type: essential hypertension Brief History of Present Illness: Ms Stein is a 57 years old woman with history of CAD, pancreatitis, mitral valve prolapse, COPD, who start with abdominal pain about 3 days ago. The pain was associated with nausea and vomiting. She states the pain in her abdomen is diffuse but mostly localized in epigastric area. Intensity of the pain is 10/ 10. She denied any diarrhea, fever or chills. The patient says she lost some weight lately since she is not able to keep food down due to vomiting. At arrival she was afebrile, WBC elevated 19.8K, lipase slightly elevated. CT abd/ pelvis shows normal pancreas but thickening of the wall of the gastric antrum may be secondary to gastritis or incomplete distention. Hospital Course: Overall during the hospital stay patient remained stable Patient was initially admitted to the hospital for abdominal pain most likely secondary to gastritis. GI was consulted. Patient had a EGD done here in the hospital which is consistent with gastritis. Patient's pain improved markedly after having nothing by mouth for 24 hr. Patient's diet was advanced. Patient tolerated her diet well. Patient did not report of having any pain and was going down to smoke. Patient was educated extensively on tobacco cessation demonstrated understanding and then was discharged home under stable condition. Followup with GI. Patient was asked to take Protonix 40 mg daily to help with the Gastritis . Vital Signs/Physical Exam: Temp Pulse Resp BP Pulse Ox 97.7 F 82 16 119/59 L 99 03/21/18 08:00 03/21/18 08:00 03/21/18 08:00 03/21/18 08:00 03/21/18 08:00 General: Alert, In no apparent distress HEENT: Atraumatic, PERRLA, EOMI Neck: Supple, JVD not distended Respiratory: Clear to auscultation bilaterally, Normal air movement Cardiovascular: Regular rate/rhythm, Normal S1 S2 Gastrointestinal: Normal bowel sounds, No tenderness Musculoskeletal: No tenderness Integumentary: No rashes Neurological: Normal speech, Normal tone, Normal affect Lymphatics: No axilla or inguinal lymphadenopathy Laboratory Data at Discharge: WBC 18.5 K/uL (4.3-10.9) H 03/20/18 03:46 Hgb 9.7 g/dL (12.0-15.0) L 03/20/18 03:46 Hct 30.7 % (36.0-45.0) L 03/20/18 03:46 Plt Count 333 K/uL (152-406) 03/20/18 03:46 Sodium 138 mEq/L (135-145) 03/21/18 04:36 Potassium 3.4 mEq/L (3.6-5.0) L 03/21/18 04:36 BUN 9 mg/dL (6-20) 03/21/18 04:36 Creatinine 0.82 mg/dL (0.44-1.00) 03/21/18 04:36 Glucose 127 mg/dL (65-120) H 03/21/18 04:36 Magnesium 1.8 mg/dL (1.8-2.5) 03/21/18 04:36 Total Bilirubin 0.2 mg/dL (0.3-1.2) L 03/19/18 19:30 AST 18 IU/L (10-42) 03/19/18 19:30 ALT 14 IU/L (10-60) 03/19/18 19:30 Alkaline Phosphatase 117 IU/L (42-121) 03/19/18 19:30 Lipase 63 U/L (22-51) H 03/19/18 19:30 Home Medications: Albuterol Neb [Proventil 0.083% Neb Soln] 2.5 mg IH Q6HP PRN 07/12/12 Alprazolam [Xanax*] 0.5 mg PO BEDTIME 07/12/12 Hydroxyz 25 mg PO Q6H PRN 07/12/12 Ipratrop/Albuterol Inhaler [Combivent*] 2 puff IH QID 07/12/12 Losartan Potassium 100 mg PO DAILY 07/12/12 Carvedilol [Coreg*] 6.25 mg PO BID 06/11/15 Meclizine HCl [Antivert*] 12.5 mg PO TID PRN 06/11/15 Metoclopramide HCl [Reglan] 10 mg PO BID 08/06/17 Esomeprazole Magnesium 40 mg PO DAILY 12/17/17 Gabapentin [Neurontin*] 200 mg PO BID 12/17/17 Lipase/Protease/Amylase [Creon Dr 12,000 Units Capsule] 3 tab PO ACHS 12/17/17 Montelukast [Singulair*] 10 mg PO DAILY 12/17/17 Potassium Chloride 20 meq PO DAILY 12/17/17 Sucralfate [Carafate*] 1 gm PO ACHS 12/17/17 Cyclobenzaprine HCl [Flexeril] 5 mg PO BID PRN 03/20/18 Dicyclomine HCl 20 mg PO DAILY PRN 03/20/18 Furosemide 40 mg PO DAILY 03/20/18 Sertraline HCl 1 tab PO DAILY 03/20/18 Pantoprazole [Protonix Tab*] 40 mg PO ACB #30 tab 03/21/18 New Medications: Pantoprazole [Protonix Tab*] 40 mg PO ACB #30 tab Patient Discharge Instructions: Please f.u with PCP in 1 week post discharge. New medication. Protonix 40mg PO daily Diet: Regular Followup: Jacinto Florez MD [ASSOCIATE-ACTIVE - CAN ADMIT] - 1 Week (call the office to make an appointmen in 1 week. ) Pearl Salazar, YESSY[facility] [OUTSIDE PHYSICIAN] - 1 Week (call the office to make an appointment in 1 week.)
--- NOTE | 2018-06-08 23:22 | CON ---
Date of Consultation: 03/20/2018 Reason For Consultation: Possible gastritis with abnormal CT scan showing thickened gastric wall and microcytic anemia and sepsis. History Of Present Illness: Patient is a 57-year-old female with history of COPD, mitral valve prola pse, pancreatitis, coronary artery disease. Patient admitted to the hospital with 3-day history of a bdominal pain. Negative for pancreatitis. Patient's CT scan did reveal thickened gastric wall. She has had some midepigastric pain greater than general abdominal pain with nausea, vomiting. Also, sh e had sepsis thought to be with white count of 9.8 with polys only 58%. She has a previous diagnosis of leukemia in 2017 with Hematology following as outpatient. Past Medical History: Significant for leukemia as an outpatient followed by Hematology here, pancrea titis recurrent, mitral valve prolapse, hypertension, congestive heart failure, COPD, coronary artery disease status post HI in 2013, appendectomy, cholecystectomy, brain surgery for nerve damage, neck surgery. Family History: For lung cancer in father, colon cancer in mother. Review of Systems: The patient has nausea vomiting midepigastric region, generalized abdominal pain. No depression. She has a little bit of anxiety, a little bit of just decreased mood too. No backach es, mostly joint aches. No melena, hematochezia, hematemesis, coffee-grounds emesis, hematuria, dysu muna, polyuria, polydipsia. Physical Examination: Vital signs: The patient is in 5 foot 3 inches 159 pounds. BMI 28.1 kg/sq m. She has a temperature 97.3 degrees Fahrenheit, pulse 70, respirations 16, blood pressure 108/53, O2 saturation 96%. HEENT: Normocephalic, atraumatic. Anicteric. Pupils equal, round, and reactive to light. Extraocu lar movements intact. Oropharynx is clear. Neck: Supple, no masses. Respirations: Clear auscultation bilaterally. Cardiac: Regular rate and rhythm. No gallops or rubs. Abdomen: Positive bowel sounds. Soft, nondistended. Mild midepigastric pain. Generalized abdomina l tenderness, but no peritoneal or Martínez sign. Extremities: No clubbing, cyanosis, or edema. 2+ pulses. Neuro: Alert and oriented x3. Grossly nonfocal. 5/5 motor strength. Sensation intact to light mellisa ch. Laboratory Data: The patient has a white count of 18.5, down from 20.6, hemoglobin of 9.7, hematocri t of 31, MCV of 74, platelet count of 333, polys 58%, lymphocytes 30%, monocytes 9%, eosinophils 2%. PT of 13.4, INR of 1.13, PTT of 27.4. Patient has a sodium of 137, potassium 3.5, chloride 106, bic arb 27, BUN of 13, creatinine of 0.8, glucose 92, calcium 7.9, total bilirubin 0.2, direct bilirubin 0.1, AST of 37, ALT of 24, alkaline phosphatase 118, total protein 7.2, albumin 3.3, globulin 3.9, li pase 38. Prior CA 19-9 in 07/2017 was 47. Impression: 1.Possible gastritis with abnormal CT revealing thin gallbladder wall with midepigastric and congeni joel abdominal pain with nausea, vomiting . 2.General abdominal pain, chronic pain with patient. 3.Microcytic anemia, probably iron deficiency anemia with hemoglobin 9, MCV of 73. 4.Leukemia with white count of 19.8, down to 8.5, with polys only 58%. Therefore, doubt sepsis. Th e patient was diagnosed leukemia in 2017, followed by Hematology, Dr. Zaragoza as an outpatient. Recommendations: 1.EGD. 2.Keep patient n.p.o. 3.IV fluids and IV antibiotics. 4.Continue p.r.n. pain medications, antiemetics. SANDRA/STANLEY Voice ID: [id number] Report ID: [id number]
== END 2018-03-21 11:19 | disposition home or self-care (01) ==
LOC: ER 18:08 → ERHOLD 23:18 → 4TH 23:52
PROVIDERS: ADMIT Internal Medicine; ATTEND Family Medicine
PROC: 0DB88ZZ Excision of Small Intestine, Via Natural or Artificial Opening Endoscopic (ICD-10-PCS; 2018-03-20)
PROC: 0DB68ZZ Excision of Stomach, Via Natural or Artificial Opening Endoscopic (ICD-10-PCS; principal; 2018-03-20 12:00)
DX: K29.00 Acute gastritis without bleeding (principal); I25.10 Atherosclerotic heart disease of native coronary artery without angina pectoris; J44.9 Chronic obstructive pulmonary disease, unspecified; I10 Essential (primary) hypertension; K44.9 Diaphragmatic hernia without obstruction or gangrene; R10.13 Epigastric pain; I50.9 Heart failure, unspecified; C91.10 Chronic lymphocytic leukemia of B-cell type not having achieved remission; F17.200 Nicotine dependence, unspecified, uncomplicated
CPT/HCPCS: 36415 ×2; 43239; 74177; 80048 ×3; 80076; 83690; 83735; 85025 ×2; 87086; 87088; 88305; 88312; 93005; 96361; 96374; 96375; 99285; C9113 ×2; G0378 ×2; J2175 ×3; J2270 ×3; J2405 ×9; J2550; J3475; J7030 ×3; Q9967; 81003; 81015

== ENCOUNTER 2018-10-23 11:00 | Emergency (ER) | payer OTHER ==
--- NOTE | 2018-10-23 11:44 | RAD REPORT ---
EXAM DESCRIPTION: RAD - Chest Single View - 10/23/2018 11:32 am CLINICAL HISTORY: Chest pain COMPARISON: November 2017 TECHNIQUE: AP portable chest image was obtained 1115 hours . FINDINGS: Lung volumes are low. Lung parker are clear. Lung markings not clearly different from comp arison. Heart and vasculature are normal. No measurable pleural effusion and no pneumothorax. No acut e bony abnormality seen. No acute aortic findings suspected. IMPRESSION: No acute cardiopulmonary process. No significant interval change.
[2018-10-23] MEDS ORDERED: NA CHLORIDE 0.9% 1,000 ML ONE (12:02)
--- OUTSIDE RECORDS SUMMARY | 2018-10-23 12:07 | XMS REPORT | Continuity of Care Document ---
:1960 Author Organization Interface Problems Problem Status Onset Classification Date Comments Source Date Reported CHEST PAIN Active 09/28/20 [facility], [place] Nicotine Active 12/18/19 Finding 12/18/[address] [facility] [facility] CHF Active 12/18/19 Finding 12/18/[address] [facility] [facility] CLL Active 12/18/19 Finding 12/18/[address] [facility] [facility] Chronic Active 12/18/19 Finding 12/18/[address] pancreatitis 18 [facility] COPD Active 12/18/19 Finding 12/18/[address] [facility] [facility] Chest pain Active 12/18/19 Finding 12/18/2017 [facility], [place], [facility] Congestive heart Active 12/18/19 Finding 12/18/2017 Ortho and failure 18 [facility] [place],[facility] Chronic Active 12/18/19 Finding 12/18/[address] lymphocytic 18 [facility] [place] Chronic Active 12/18/19 Finding 12/18/[address] obstructive [facility] disease [place] Enteritis Active 08/06/20 Finding 12/18/[address] [facility] [address] [facility] Tobacco abuse Active 08/06/20 Finding 12/18/[address] [facility] [facility] DDD, CERVICAL Active 12/11/19 [facility] M50.30, M48.02 [place] STENOSIS, C ABDOMINAL PAIN Active 09/19/20 16 [facility], [place] ABD PAIN Active 09/02/[address], [place] ABD PAIN Active 09/02/20 [facility] LEUKOCYTOSIS 16 PANCREATITIS Active 08/28/20 [facility] 16 GASTRITIS, Active 08/28/20 [facility] PANCREATITIS 16 THROMBUS OF LEFT Active 03/24/20 [facility] INTERNAL JUGULAR 16 VEIN ABDOMINAL PAIN, Active 02/15/20 [facility] CONSTIPATION, 16 LEUKOCYTOS ABDOMINAL PAIN / Active 02/15/20 [facility] VOMITTING 16 M50.30, M48.02, Active 01/02/20 [facility] M50.80 16 Medical Center Discharge 07/29/20 08/01/2015 [facility] Diagnosis: 15 Gastritis HTN Active 06/13/20 Finding 12/18/[address] [facility] [address] [facility] Adynamic ileus Active 06/13/20 Finding 12/18/[address] [facility] [address] [facility] Hypertension Active 06/13/20 Finding 12/18/[address] [facility] [address] [facility] ACUTE COPD Active 11/15/19 [facility] EXACERB[facility] [address] SENT HER HERE Active 11/15/19 [place] [facility] [place] VOMITING/ ABD PAIN Active 10/28/19 [place] [facility] [place] Discharge 10/28/19 2014 [facility] Diagnosis: 15 [place] Abdominal pain ACUTE ABDOMINAL Active 06/16/20 [facility] PAIN 14 DIZZINESS / Active 03/30/20 [facility] NUMBNESS 13 [place] DIZZINESS Active 03/30/20 [place] [facility] [place] CHEST PAINS Active 09/07/20 [facility] 12 Anxiety Active 09/07/20 Problem 04/17/[address], [place], [facility] Anxiety Active 09/07/20 Problem 04/02/2013 [facility] 12 [facility] Chest pain Active 09/01/20 Problem 04/02/[address] [place] Asthma Active Problem 04/17/2017 [facility], [place], [facility] ASTHMA Resolved Problem 04/17/2017 [facility], [facility], [place] Bulging disc Resolved Problem 04/17/2017 [facility] [place], [facility] CAD - Coronary Active Problem 04/17/2017 artery disease [facility], [place], [facility] Gastritis Active Problem 04/17/2017 [facility], [place], [facility] GERD - Active Problem 04/17/2017 Gastro-esophageal [facility] reflux disease [facility], [place], [facility] Heartburn Active Problem 04/17/2017 [facility], [place], [facility] HTN - Hypertension Resolved Problem 04/17/2017 [facility], [place], [facility] Mitral valve Active Problem 04/17/2017 prolapse [facility], [place], [facility] Pancreatitis Active Problem 04/17/2017 [facility], [place], [facility] Asthma Active Problem 04/02/2013 [place],[facility] Gastritis Resolved Problem 04/02/2013 [place] GERD - Active Problem 04/02/2013 [place] Gastro-esophageal [place], reflux disease [facility] Heartburn Resolved Problem 04/02/2013 [place] HTN - Hypertension Active Problem 04/02/2013 [place],[facility] Hypertension Resolved Problem 04/02/2013 [place] Mitral valve Resolved Problem 04/02/2013 [place] prolapse [place] Pancreatitis Resolved Problem 04/02/2013 [place] ASTHMA Resolved Problem 09/09/2015 [place],[facility] Final: Other 12/21/2016 Ortho and cervical disc Spine degeneration, unspecified cervical region Final: Sprain of 12/21/2016 Ortho and ligaments of Spine cervical spine, initial encounter Final: Spinal 12/21/2016 Ortho and stenosis, cervical Spine region Final: Other 12/21/2016 Ortho and cervical disc Spine degeneration at C6-C7 level Bronchitis Resolved Problem 04/17/2017 [facility] Congestive heart Resolved Problem 04/17/2017 Ortho and failure Spine, [place],[facility] Neuropathy (<span Resolved Problem 04/17/2017 Ortho and ID="[id number]"> Spine, Confirmed</span>) [place],[facility] Generalized Active Finding 12/18/[address] [facility] abdominal pain [facility] Leukocytosis Active Finding 12/18/[address] [facility] Night sweats Active Finding 12/18/[address] [facility] Obesity Active Finding 12/18/[address] [facility] Abnormal CT of the Active Finding 12/18/[address] abdomen [facility] Sepsis Active Finding 12/18/[address] [facility] Nausea & vomiting Active Finding 12/18/[address] [facility] Abdominal pain Active Problem 09/28/2018 [facility] Acute bronchitis Active Problem 09/28/2018 [facility] Acute gastritis Active Problem 09/28/2018 [facility] Allergic contact Active Problem 09/28/2018 [place] dermatitis [facility] Atypical chest Active Problem 09/28/2018 [facility] Bronchitis Active Problem 09/28/2018 [facility] CLL Active Problem 09/28/2018 [facility] Chest pain Active Problem 09/28/2018 [facility] Chest wall pain Active Problem 09/28/2018 [facility] Chronic pain Active Problem 09/28/2018 [place] syndrome [facility] Chronic Active Problem 09/28/2018 [place] pancreatitis [facility] Fluid retention Active Problem 09/28/2018 [facility] Gastritis Active Problem 09/28/2018 [facility] Gastroenteritis Active Problem 09/28/2018 [facility] Hypertension Active Problem 09/28/2018 [facility] Hypokalemia Active Problem 09/28/2018 [facility] Laceration of Active Problem 09/28/2018 [place] finger [facility] Leukocytosis Active Problem 09/28/2018 [facility] Nasal congestion Active Problem 09/28/2018 [facility] Nausea & vomiting Resolved Problem 09/28/2018 [facility] Neuropathy Active Problem 09/28/2018 [facility] Orthostatic Active Problem 09/28/2018 [place] dizziness [facility] Palpitations Active Problem 09/28/2018 [facility] Pancreatitis Active Problem 09/28/2018 [facility] Postoperative Active Problem 09/28/2018 [place] wound infection [facility] Severe allergic Active Problem 09/28/2018 [place] reaction [facility] Strain of rotator Active Problem 09/28/2018 [place] cuff capsule [facility] Thrombosis of Active Problem 09/28/2018 [place] internal jugular [facility] vein [facility] Thrombosis of left Active Problem 09/28/2018 [place] internal jugular [facility] vein [facility] Trigeminal Active Problem 09/28/2018 [place] neuralgia syndrome [facility] Vomiting Active Problem 09/28/2018 [facility] Abdominal cramping Resolved Problem 09/28/2018 [facility] Abdominal Resolved Problem 09/28/2018 [place] discomfort [facility] Acute asthma Resolved Problem 09/28/2018 [facility] Acute pancreatitis Resolved Problem 09/28/2018 [facility] Acute vaginitis Resolved Problem 09/28/2018 [facility] Colitis Resolved Problem 09/28/2018 [facility] Diarrhea Resolved Problem 09/28/2018 [facility] Drug reaction Resolved Problem 09/28/2018 [facility] Dyspepsia Resolved Problem 09/28/2018 [facility] Epigastric Resolved Problem 09/28/2018 [facility] GERD Resolved Problem 09/28/2018 [facility] Head ache Resolved Problem 09/28/2018 [facility] Hyperglycemia Resolved Problem 09/28/2018 [facility] Leukocytosis, Resolved Problem 09/28/2018 [place] unspecified [facility] Non-cardiac chest Resolved Problem 09/28/2018 [facility] Shingles Resolved Problem 09/28/2018 [facility] UTI Resolved Problem 09/28/2018 [facility] Upper abdominal Resolved Problem 09/28/2018 [facility] Vaginal Resolved Problem 09/28/2018 [facility] Vaginal infection Resolved Problem 09/28/2018 [facility] Weight loss, Resolved Problem 09/28/2018 [facility] [id number] Diagnosis 09/18/2018 [facility] [id number] Diagnosis 09/18/2018 [facility] [id number] Diagnosis 09/18/2018 [facility] [id number] Diagnosis 09/18/2018 [facility] [id number] Diagnosis 09/18/2018 [facility] [id number] Diagnosis 09/18/2018 [facility] [id number] Diagnosis 09/18/2018 [facility] CHEST PAIN NOS [facility] ABDMNAL PAIN Active [facility] UNSPCF SITE CHR AIRWAY Active [place] OBSTRUCT NEC [place] SPINAL STENOSIS, Active [facility] CERVICAL [facility] OTHER CERVICAL Active [facility] [place] DISC DISORDERS, Medical UNSPECIFI Center UNSPECIFIED Active [facility] ABDOMINAL PAIN CONSTIPATION, Active [facility] UNSPECIFIED ACUTE EMBOLISM AND Active [facility] THROMBOSIS OF SUPERIO LUNG Active [place] ABNORMALITY-R19.8 [place] ACUTE PANCREATITIS Active [facility] WITHOUT NECROSIS OR I GASTRITIS, Active [facility] UNSPECIFIED, WITHOUT BLEEDING ELEVATED WHITE Active [facility] BLOOD CELL COUNT, UNSPECI OTHER CERVICAL Active [facility] DISC DEGENERATION, Medical UNSP C Center,[facility] [place] SPINAL STENOSIS, Active [facility] CERVICOTHORACIC [place] CHEST PAIN, Active [facility] UNSPECIFIED NAUSEA WITH Active [facility] VOMITING, UNSPECIFIED Medications Medication Details Route Status Patient Ordering Order Source Instructions Provider Date Alprazolam Daily As ORAL Active [place] (Alprazolam*) Needed as [address] [place] [address] 0.5 Mg Tab, 1 needed for Medical Tab Oral Anxiety Center Estradiol 0.075 Every 7 Days Active [place] Mg/24 Hr Dis, [address] [place] [address] Hydroxyzine Hcl Three Times ORAL Active [place] (Atarax 25 Mg*) Daily As [address] [place] [address] 25 Mg Tab, 25 Needed as Medical Mg Oral needed for Center Itching Methocarbamol Active [place] 750 Mg Tab, [address] [place] [address] Metoclopramide Twice A Day ORAL Active rda Hcl (Reglan [address] [place] [address] Mg*) 10 Mg Tab, Medical 10 Mg Oral Center Montelukast Once Daily ORAL Active [place] Sodium 2018 [facility] (Montelukast Medical Sodium 10 Mg Center (Singulair) *) 10 Mg Tab, 10 Mg Oral Omeprazole-Sodi Once Daily ORAL Active rda um Bicarbonate 2018 [facility] (Omeprazole/Sod Medical ium Bicarbo Center 40MG/1100MG) 1 Cap Cap, 1 Cap Oral Pancrelipase Four Times ORAL Active [place] (Lipase-Proteas Daily Before [address] [place] [address] e- (Creon Meals Medical 24,000 Unt) [place] 24,000 Unt Cap, 3 Tab Oral Sertraline Hcl Active rda 50 Mg Tab, [address] [place] [address] Sucralfate Four Times ORAL Active rda (Sucralfate [address] [facility]) 1 Gm Tab, 1 Medical Tab Oral Center Cefdinir Twice A Day ORAL Active [place] (Omnicef) 300 for 2018 [facility] Cap Leukocytosis Medical Center Alprazolam Bedtime ORAL Active [place] (Alprazolam*) 2018 [facility] 0.25 Mg Tab, 1 Medical Tab Oral Center Ondansetron Hcl Q 8 Hrs Prn ORAL Active a (Zofran 4 Mg*) as needed 2018 [facility] 4 Mg Tab, 1 Tab for Nausea Medical Oral And Vomiting Center Sucralfate BEFORE MEALS Active St. AND AT 2018 [facility] [place] Esomeprazole DAILY Active St. Magnesium 2018 [facility] Potassium DAILY Active St[facility] Chloride 2018 [facility] Lipase/Protease BEFORE MEALS Active St. /Amylase AND AT 2018 [facility] [place] Gabapentin TWICE DAILY Active St. 2018 [facility] Ondansetron Hcl Q8H PRN For Active St. Abdominal 2018 [facility] [place] Montelukast DAILY Active St. 2018 [facility] Amitriptyline Once Daily ORAL Active [place] Hcl (Elavil*) At Bedtime 2017 [facility] 100 Mg Tab, 1 Medical Tab Oral Center Carvedilol Twice A Day ORAL Active [place] (Coreg *) 3.125 2016 [facility] Mg Tab, 6.25 Mg Medical Oral Center Lubiprostone * Twice A Day ORAL Active rda (Amitiza *) 24 2017 [facility] Mcg Cap, 24 Mcg Medical Oral Center Sucralfate Before Meals ORAL Active [place] (Carafate*) 1 And At 2017 [facility] Gm Tab, 1 Gm Bedtime Medical Oral Center Ciprofloxacin TWICE DAILY Active [facility] Hcl 2017 [facility] Metronidazole Q8H Active [facility] 2017 [facility] Sertraline DAILY Active St. 2017 [facility] Lactulose TWICE DAILY Active [facility] 2017 [facility] Metoclopramide TWICE DAILY Active 10/17/ [facility] 2017 [facility] Promethazine Every 4-6 ORAL Active 07/24/ [place] [facility] (Phenergan Hours As 2017 [facility] 25 Mg*) 25 Mg Needed Medical Tab, 12.5 Mg Center Oral Protonix 40 mg, 1 Inactive tab, Route: 2016 [facility] PO, Drug form: ECTAB, Before Dinner, Start date: 04/14/17 16:30:00 CDT, Duration: 30 day, Stop date: 05/13/17 16:30:00 CDTNotes: Tablet should not be chewed or crushed. (Same as: Protonix) carvedilol 6.25 mg, 1 No Longer tab, Route: Active 2016 [facility] PO, Drug form: TAB, BID, Dosing Weight 91.364, kg, Start date: 04/14/17 9:00:00 CDT, Duration: 30 day, Stop date: 05/13/17 17:00:00 CDTNotes: Give with food. (Same As: Coreg) Metolazone 5 MG 5 mg, 2 tab, No Longer Oral Tablet Route: PO, Active 2016 [facility] Drug form: TAB, QAM, Dosing Weight 91.364, kg, Start date: 04/14/17 9:00:00 CDT, Duration: 30 day, Stop date: 05/13/17 9:00:00 CDTNotes: (Same as: Zaroxolyn) Amitiza 24 No Longer microgram, 1 Active 2016 [facility] cap, Route: PO, Drug form: CAP, BID, Dosing Weight 91.364, kg, Start date: 04/14/17 9:00:00 CDT, Duration: 30 day, Stop date: 05/13/17 17:00:00 CDTNotes: Same as Amitiza (Do Not Crush) Non Formulary Losartan 100 mg, 2 No Longer tab, Route: Active 2016 [facility] PO, Drug form: TAB, Daily, Dosing Weight 91.364, kg, Start date: 04/14/17 9:00:00 CDT, Duration: 30 day, Stop date: 05/13/17 9:00:00 CDTNotes: (Same as: Cozaar) gabapentin 100 200 mg, 2 No Longer MG Oral Capsule cap, Route: Active 2016 [facility] PO, Drug form: CAP, BID, Dosing Weight 91.364, kg, Start date: 04/14/17 9:00:00 CDT, Duration: 30 day, Stop date: 05/13/17 17:00:00 CDTNotes: (Same as: Neurontin) montelukast 10 mg, 1 No Longer tab, Route: Active 2016 [facility] PO, Drug form: TAB, Daily, Dosing Weight 91.364, kg, Start date: 04/14/17 9:00:00 CDT, Duration: 30 day, Stop date: 05/13/17 9:00:00 CDTNotes: (Same as:Singulair ) Esomeprazole 40 mg, No Longer Route: PO, Active 2016 [facility] Drug form: ECCAP, Daily, Dosing Weight 91.364, kg, Start date: 04/14/17 9:00:00 CDT, Duration: 30 day, Stop date: 05/13/17 9:00:00 CDT Ondansetron 4 mg, 1 tab, No Longer Route: PO, Active 2016 [facility] Drug form: TAB, Q8H, Dosing Weight 91.364, kg, Start date: 04/14/17 0:00:00 CDT, Duration: 30 day, Stop date: 05/13/17 16:00:00 CDTNotes: (Same as: Zofran) 120 ACTUAT 2 puff, No Longer Albuterol 0.1 Route: Active 2016 [facility] MG/ACTUAT / INHALATION, Ipratropium Drug Form: [place] 0.02 AERO, Dosing MG/ACTUAT Weight Metered Dose 91.364, kg, Inhaler QID, Start [Combivent date: ] 04/13/17 21:00:00 CDT, Duration: 30 day, Stop date: 05/13/17 17:00:00 CDTNotes: Same as: Combivent Respimat WASTE: Aerosol - Return to Pharmacy Amitriptyline 100 mg, 1 Inactive tab, Route: 2016 [facility] PO, Drug form: TAB, Bedtime, Dosing Weight 91.364, kg, Start date: 04/13/17 21:00:00 CDT, Duration: 30 day, Stop date: 05/12/17 21:00:00 CDTNotes: (Same as: Elavil) Alprazolam 0.25 0.25 mg, 1 Inactive MG Oral Tablet tab, Route: 2016 [facility] PO, Drug form: TAB, Bedtime, Dosing Weight 91.364, kg, Start date: 04/13/17 21:00:00 CDT, Duration: 30 day, Stop date: 05/12/17 21:00:00 CDTNotes: With food or milk (Same as: Xanax) Sucralfate 1 gm, 1 tab, Inactive Route: PO, 2016 [facility] Drug form: TAB, QID-Before Meals, Dosing Weight 91.364, kg, Start date: 04/13/17 21:00:00 CDT, Duration: 30 day, Stop date: 05/13/17 16:30:00 CDTNotes: May interfere w/enteral feeds - Take 1 hr before or 2 hr after antacids, dairy pdt, meals & minerals - On empty stomach. For patients unable to swallow tablet, dissolve in 10mL - 30mL of water or juice and stir before giving. (Same As: Carafate) Amylases 844699 3 cap, Inactive UNT / Route: PO, 2016 [facility] Endopeptidases Drug Form: 95639 UNT / DRC, Dosing Lipase 40871 Weight UNT Enteric 91.364, kg, Coated Capsule QID-Before [Creon 24] Meals, Start date: 04/13/17 21:00:00 CDT, Duration: 30 day, Stop date: 05/13/17 16:30:00 CDTNotes: Same as: Creon DRC 24 : lipase 24,000 units, protease 76,000 units, amylase 120,000 units Metoclopramide 10 mg, 1 No Longer 10 MG Oral tab, Route: Active 2016 [facility] Tablet PO, Drug form: TAB, [id number], Dosing Weight 91.364, kg, Start date: 04/13/17 20:00:00 CDT, Duration: 30 day, Stop date: 05/13/17 8:00:00 CDTNotes: (Same as: Reglan) Take 30 min before meals Methocarbamol 750 mg, 1 No Longer tab, Route: Active 2016 [facility] PO, Drug form: TAB, Q8H, Dosing Weight 91.364, kg, PRN Pain Score 4-6, Start date: 04/13/17 19:14:00 CDT, Duration: 30 day, Stop date: 05/13/17 19:13:00 CDTNotes: (Same as:Robaxin) Meclizine 12.5 mg, 1 No Longer tab, Route: Active 2016 [facility] PO, Drug form: TAB, PRN, Dosing Weight 91.364, kg, PRN as needed for nausea/vomit ing, Start date: 04/13/17 19:14:00 CDT, Duration: 30 day, Stop date: 05/13/17 19:13:00 CDTNotes: (Same as: Antivert) Hydroxyzine 25 mg, 1 No Longer Hydrochloride tab, Route: Active 2016 [facility] 25 MG Oral PO, Drug Tablet form: TAB, TID, Dosing Weight 91.364, kg, PRN Itching, Start date: 04/13/17 19:13:00 CDT, Duration: 30 day, Stop date: 05/13/17 19:12:00 CDTNotes: (Same as: Atarax) Avoid alcohol. Metoclopramide 10 mg, 1 Inactive 10 MG Oral tab, Route: 2016 [facility] Tablet PO, Drug form: TAB, [id number], Dosing Weight 91.364, kg, Start date: 04/13/17 18:00:00 CDT, Duration: 30 day, Stop date: 05/13/17 6:00:00 CDTNotes: (Same as: Reglan) Take 30 min before meals Esomeprazole 20 40 mg=2 cap, Active MG Enteric PO, Daily, 0 2016 [facility] Coated Capsule Refill(s) Methocarbamol 750 mg, 1 Inactive tab, Route: 2016 [facility] PO, Drug form: TAB, Q8H, Dosing Weight 91.364, kg, PRN Pain Score 4-6, Start date: 04/13/17 17:14:00 CDT, Duration: 30 day, Stop date: 05/13/17 17:13:00 CDTNotes: (Same as:Robaxin) Meclizine 12.5 mg, 1 Inactive tab, Route: 2016 [facility] PO, Drug form: TAB, PRN, Dosing Weight 91.364, kg, PRN as needed for dizziness, Start date: 04/13/17 17:13:00 CDT, Duration: 30 day, Stop date: 05/13/17 17:12:00 CDTNotes: (Same as: Antivert) Hydroxyzine 25 mg, 1 Inactive Hydrochloride tab, Route: 2017 [facility] 25 MG Oral PO, Drug Tablet form: TAB, TID, Dosing Weight 91.364, kg, PRN Itching, Start date: 04/13/17 17:13:00 CDT, Duration: 30 day, Stop date: 05/13/17 17:12:00 CDTNotes: (Same as: Atarax) Avoid alcohol. Mucinex 600 mg, 1 No Longer tab, Route: Active 2016 [facility] PO, Drug form: ERTAB, Q12H, Dosing Weight 91.364, kg, Start date: 04/12/17 21:00:00 CDT, Duration: 30 day, Stop date: 05/12/17 9:00:00 CDTNotes: (Same as: Guaifenesin [place], Humibid LA, Mucinex) "Do Not Crush" Take medication with plenty of water. carvedilol 6.25 6.25 mg=1 Active mg oral tablet tab, PO, 2016 BID, 0 Refill(s) Metolazone 5 MG 5 mg=1 tab, No Longer Oral Tablet PO, QAM, 0 Active 2016 Refill(s) Amylases 075019 3 cap, PO, Active UNT / QID-Before 2016 [facility] Endopeptidases Meals, and [address] UNT / at bedtime, Lipase 44735 0 Refill(s) UNT Enteric Coated Capsule [Creon 24] lubiprostone 24 Active 0.024 MG Oral microgram=1 2016 [facility] Capsule cap, PO, [Amitiza] BID, 0 Refill(s) gabapentin 100 200 mg=2 Active 06/24/ [facility] MG Oral Capsule cap, PO, 2016 [facility] BID, 0 Refill(s) Tylenol 650 mg, 2 No Longer tab, Route: Active 2016 [facility] PO, Drug form: TAB, Q4H, Dosing Weight 85.909, kg, PRN Pain 1-3/Temp > 100.4 F, Start date: 04/12/17 15:31:00 CDT, Duration: 30 day, Stop date: 05/12/17 15:30:00 CDTNotes: Do not exceed 4 gm/day. (Same as: Tylenol) Ciprofloxacin Twice A Day ORAL Active [place] 02/02/ [place] [facility] (Cipro 500 for 2017 [facility] Mg*) 500 Mg Gastroenteri Medical Tab, 1 Tab Oral tis Center Metronidazole Every 8 ORAL Active [place] 02/02/ [place] (Flagyl 500 Hours for 2017 [facility] Mg*) 500 Mg Gastroenteri Medical Tab, 500 Mg tis Center Oral Albuterol * Rt-Every 6 RESPIRATOR Active [place] (Proventil Hours As Y 2016 [facility] 0.083% Needed (INHALATIO Medical 2.5MG/3ML *) N) Center 0.083 % Neb, 2.5 Mg Respiratory (Inhalation) Amitriptyline Once Daily ORAL Active 02/01/ [place] [facility] (Elavil*) At Bedtime 2016 [facility] 100 Mg Tab, 100 Medical Mg Oral Center Furosemide Daily ORAL Active [place] (Lasix 40 Mg*) 2016 [facility] 40 Mg Tab, 1 Medical Tab Oral Center Methocarbamol Every 8 ORAL Active [place] (Methocarbamol Hours As 2016 [facility] 750 Mg) 750 Mg Needed Medical Tab, 1 Tab Oral Center Azithromycin Once Daily ORAL Active [place] (Zithromax 2015 [facility] Z-Evan *) 1 Tab Medical Tab, 500 Mg Center Oral Lubiprostone * Twice A Day ORAL Active 10/14/ [place] (Amitiza *) 24 2015 [facility] Mcg Cap, 1 Cap Medical Oral Center Metolazone Once Daily ORAL Active [place] (Metolazone 5 2015 [facility] Mg) 5 Mg Tab, 1 Medical Tab Oral Center Potassium Twice A Day ORAL Active [place] [facility] * [facility], [facility] omeprazole omeprazole Inactive 40mg/sod. bicar 40mg/sod. 2016 [facility] 1100mg (own bicar 1100mg med) (own med), 1 cap, Drug form: MISC, Route: PO, Daily, 09/21/16 9:00:00 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, Duration: 30 day, Stop date: 10/20/16 9:00:00 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 pancrelipase 3 cap, No Longer Route: PO, Active 2015 [facility] Drug Form: DRC, QID-Before Meals, Start date: 09/20/16 16:30:00 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, Duration: 30 day, Stop date: 10/20/16 11:30:00 CSTNotes: Same as: Bev RAMIREZ 24 : lipase 24,000 units, protease 76,000 units, amylase 120,000 units amitriptyline 100 mg=1 Active 100 mg oral tab, PO, 2015 [facility] tablet Bedtime, 0 Refill(s) montelukast 10 mg, 1 No Longer tab, Route: Active 2015 [facility] PO, Drug form: TAB, Daily, Dosing Weight 86.364, kg, Start date: 09/20/16 9:00:00 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, Duration: 30 day, Stop date: 10/19/16 9:00:00 CSTNotes: (Same as:Singulair ) Losartan 100 mg, 2 No Longer tab, Route: Active 2015 [facility] PO, Drug form: TAB, Daily, Dosing Weight 86.364, kg, Start date: 09/20/16 9:00:00 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, Duration: 30 day, Stop date: 10/19/16 9:00:00 CSTNotes: (Same as: Pete) Amitiza 24 No Longer microgram, 1 Active 2015 [facility] cap, Route: PO, Drug form: CAP, BID, Dosing Weight 86.364, kg, Start date: 09/20/16 9:00:00 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, Duration: 30 day, Stop date: 10/19/16 17:00:00 CSTNotes: Same as Amitiza (Do Not Crush) Non Formulary Protonix 40 mg, 1 Inactive tab, Route: 2015 [facility] PO, Drug form: ECTAB, Daily, Start date: 09/20/16 9:00:00 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, Duration: 30 day, Stop date: 10/19/16 9:00:00 CSTNotes: Tablet should not be chewed or crushed. (Same as: Protonix) Docusate 100 mg, 1 No Longer cap, Route: Active 2015 [facility] PO, Drug form: CAP, BID, Dosing Weight 86.364, kg, Start date: 09/20/16 9:00:00 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, Duration: 30 day, Stop date: 10/19/16 17:00:00 CSTNotes: (Same as: Colace) (Do Not Crush) carvedilol 3.125 mg, 1 No Longer tab, Route: Active 2015 [facility] PO, Drug form: TAB, BID, Dosing Weight 86.364, kg, Start date: 09/20/16 9:00:00 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, Duration: 30 day, Stop date: 10/19/16 17:00:00 CSTNotes: Give with food. (Same As: Coreg) Prednisone 20 mg, 1 No Longer tab, Route: Active 2015 [facility] PO, Drug form: TAB, BID, Dosing Weight 86.364, kg, Start date: 09/20/16 9:00:00 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, Duration: 30 day, Stop date: 10/19/16 17:00:00 CSTNotes: Take with food. Miralax 17 gm, 1 No Longer pkt, Route: Active 2015 [facility] PO, Drug form: PWDR, BID, Dosing Weight 86.364, kg, Start date: 09/20/16 9:00:00 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, Duration: 30 day, Stop date: 10/19/16 17:00:00 CSTNotes: Dissolve in 8 oz of water or juice. (Same as: Miralax) Omeprazole 1.33 1 pkt, No Longer MG/ML / Sodium Route: PO, Active 2015 [facility] Bicarbonate Drug Form: 1.33 MEQ/ML PDR/REC, Oral Suspension Dosing Weight 86.364, kg, Daily, Start date: 09/20/16 9:00:00 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, Duration: 30 day, Stop date: 10/19/16 9:00:00 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 Sucralfate 1 gm, 1 tab, No Longer Route: PO, Active 2015 [facility] Drug form: TAB, QID-Before Meals, Dosing Weight 86.364, kg, Start date: 09/19/16 21:00:00 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, Duration: 30 day, Stop date: 10/19/16 16:30:00 CSTNotes: May interfere w/enteral feeds - Take 1 hr before or 2 hr after antacids, dairy pdt, meals & minerals - On empty stomach. (Same As: Carafate) Amitriptyline 100 mg, 1 No Longer tab, Route: Active 2015 [facility] PO, Drug form: TAB, Bedtime, Dosing Weight 86.364, kg, Start date: 09/19/16 21:00:00 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, Duration: 30 day, Stop date: 10/18/16 21:00:00 CSTNotes: (Same as: Elavil) Alprazolam 0.25 0.25 mg, 1 No Longer MG Oral Tablet tab, Route: Active 2015 [facility] PO, Drug form: TAB, Bedtime, Dosing Weight 86.364, kg, Start date: 09/19/16 21:00:00 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, Duration: 30 day, Stop date: 10/18/16 21:00:00 CSTNotes: With food or milk (Same as: Xanax) 120 ACTUAT 2 puff, No Longer Albuterol 0.1 Route: Active 2015 [facility] MG/ACTUAT / INHALATION, Ipratropium Drug Form: [place] 0.02 AERO, Dosing MG/ACTUAT Weight Metered Dose 86.364, kg, Inhaler QID, Start [Combivent date: ] 09/19/16 21:00:00 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, Duration: 30 day, Stop date: 10/19/16 17:00:00 CSTNotes: Same as: Combivent Respimat WASTE: Aerosol - Return to Pharmacy Amylases 600833 1 cap, No Longer UNT / Route: PO, Active 2015 [facility] Endopeptidases Drug Form: 09712 UNT / DRC, Dosing Lipase 89984 Weight UNT Enteric 86.364, kg, Coated Capsule QID, Start [Creon 24] date: 09/19/16 21:00:00 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, Duration: 30 day, Stop date: 10/19/16 17:00:00 CSTNotes: Same as: Bev PALAFOXC 24 : lipase 24,000 units, protease 76,000 units, amylase 120,000 units Maalox Advanced 30 mL, Inactive Regular Route: PO, 2016 [facility] Strength SUSP Drug Form: SUSP, Dosing Weight 86.364, kg, ONCE, Start date: 09/19/16 20:42:00 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, Stop date: 09/19/16 20:42:00 CSTNotes: (aluminum hydroxide-ma gnesium hyd-simethic one [phone] /5ml 30 ml ud CONSUELO) Metoclopramide 10 mg, 1 No Longer 10 MG Oral tab, Route: Active 2015 [facility] Tablet PO, Drug form: TAB, [id number], Dosing Weight 86.364, kg, Start date: 09/19/16 18:00:00 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, Duration: 30 day, Stop date: 10/19/16 6:00:00 CSTNotes: (Same as: Reglan) Take 30 min before meals Methocarbamol 750 mg, 1 No Longer tab, Route: Active 2015 [facility] PO, Drug form: TAB, Q8H, Dosing Weight 86.364, kg, PRN Pain Score 4-6, Start date: 09/19/16 17:11:00 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, Duration: 30 day, Stop date: 10/19/16 17:10:00 CSTNotes: (Same as:Robaxin) Meclizine 12.5 mg, 1 No Longer tab, Route: Active 2015 [facility] PO, Drug form: TAB, TID, Dosing Weight 86.364, kg, PRN Dizziness, Start date: 09/19/16 17:11:00 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, Duration: 30 day, Stop date: 10/19/16 17:10:00 CSTNotes: (Same as: Antivert) Lactulose 667 10 gm, 15 No Longer MG/ML Oral mL, Route: Active 2015 [facility] Solution PO, Drug Form: SYRP, Dosing Weight 86.364, kg, BID, PRN Constipation , Start date: 09/19/16 17:10:00 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, Duration: 30 day, Stop date: 10/19/16 17:09:00 CSTNotes: (Same as:Chronulac ) Hydroxyzine 25 mg, 1 No Longer Hydrochloride tab, Route: Active 2015 [facility] 25 MG Oral PO, Drug Tablet form: TAB, TID, Dosing Weight 86.364, kg, PRN Itching, Start date: 09/19/16 17:10:00 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, Duration: 30 day, Stop date: 10/19/16 17:09:00 CSTNotes: (Same as: Atarax) Avoid alcohol. sodium chloride 1,000 mL, No Longer 0.9% 1000 ml Rate: 75 Active 2015 [facility] INJ 1,000 mL ml/hr, Infuse over: 13.3 hr, Route: IV, Dosing Weight 86.364 kg, Total Volume: 1,000, Start date: 09/19/16 17:09:00 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, Duration: 30 day, Stop date: 10/19/16 17:08:00 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 Albuterol 0.83 2.49 mg, 3 No Longer MG/ML Inhalant mL, Route: Active 2015 [facility] Solution INHALATION, Drug form: SOLN, Q6H, Dosing Weight 86.364, kg, PRN as needed for wheezing, Start date: 09/19/16 17:09:00 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, Duration: 30 day, Stop date: 10/19/16 17:08:00 CSTNotes: SEE RT DOCUMENTATIO N (Same as: Proventil) Omnipaque 300 85 mL, Inactive injectable Route: IVP, 2015 [facility] solution Drug Form: SOLN, Dosing Weight 86.364, kg, ONCALL, GFR > 45 mL/min, STAT, Start date: 09/19/16 17:06:00 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, Duration: 1 doses or timesNotes: (Same as:Omnipaque 300). WASTE: F/P - Black; E - [employer] morphine 1 mg, 0.25 No Longer Sulfate mL, Route: Active 2015 [facility] IV, Drug form: INJ, Q3H, PRN Pain Score 4-6, Start date: 09/19/16 15:40:00 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, Stop date: 10/19/16 15:39:00 CSTNotes: (Same as:MORPhine Sulfate) Zofran 4 mg, 2 mL, No Longer Route: IV, Active 2015 [facility] Drug form: INJ, Q6H, PRN Nausea, Start date: 09/19/16 15:39:00 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, Duration: 30 day, Stop date: 10/19/16 15:38:00 CSTNotes: (Same as: Janey) MEDICATION WASTE Product Size: 4 mg Product Wasted: ___ mg cholestyramine 4 gm, PO, Active 4 g/5 g oral BID, # 180 2015 [facility] powder pkt, 0 Refill(s) Miralax 17 gm, PO, Active BID, 0 2015 [facility] Refill(s) lubiprostone 24 Active 0.024 MG Oral microgram=1 2015 [facility] Capsule cap, PO, [Amitiza] BID, # 60 cap, 0 Refill(s) sucralfate 1 g 1 gm=1 tab, Active oral tablet PO, 2015 [facility] QID-Before Meals, 0 Refill(s) Ondansetron 0 Refill(s) Inactive 2015 [facility] Amylases 465435 1 cap, PO, Active UNT / QID, 0 2015 [facility] Endopeptidases Refill(s) 40708 UNT / Lipase 02024 UNT Enteric Coated Capsule [Creon 24] Prednisone 20 mg, PO, Active BID, 2015 [facility] Quantity sufficient, 0 Refill(s) meclizine 12.5 12.5 mg=1 Active mg oral tablet tab, PO, 2015 PRN, 0 Refill(s) Docusate 100 mg, PO, Active BID, 0 2015 [facility] Refill(s) ondansetron 4 4 mg=1 tab, Active mg oral tablet PO, Q8H, 0 2015 [facility] Refill(s) Amitriptyline 10 mg, Inactive Route: PO, 2015 [facility] Drug form: TAB, Bedtime, Dosing Weight 87.727, kg, Start date: 09/04/16 21:00:00 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, Duration: 30 day, Stop date: 10/03/16 21:00:00 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 amitriptyline 100 mg=1 Active 100 mg oral tab, PO, 2015 [facility] tablet Bedtime, # 30 tab, 0 Refill(s) Zofran 4 mg, 2 mL, Inactive Route: IVP, 2015 [facility] Drug form: INJ, ONCE, Start date: 09/04/16 0:45:00 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, Stop date: 09/04/16 0:45:00 CSTNotes: (Same as: Zofran) MEDICATION WASTE Product Size: 4 mg Product Wasted: ___ mg Golytely 4,000 ml, Inactive Route: PO, 2015 [facility] Drug Form: PDR/REC, Dosing Weight 87.727, kg, ONCE, Start date: 09/03/16 12:44:00 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, Duration: 1 doses or times, Stop date: 09/03/16 12:44:00 CSTNotes: (polyethylen e glycol electrolyte solution 4 Liter bottle) (Same as: Golytely, Colyte) Losartan 100 mg, 2 No Longer tab, Route: Active 2015 [facility] PO, Drug form: TAB, Daily, Dosing Weight 87.727, kg, Start date: 09/03/16 9:00:00 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, Duration: 30 day, Stop date: 10/02/16 9:00:00 CSTNotes: (Same as: Pete) Omeprazole-sodi Omeprazole-s No Longer um Bicarb odium Bicarb Active 2015 [facility] 40-1100 (own 40-1100 (own med) med), 1 cap, Drug form: MISC, Route: PO, Daily, 09/03/16 9:00:00 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, Duration: 30 day, Stop date: 10/02/16 9:00:00 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 Protonix 40 mg, No Longer Route: IVP, Active 2015 [facility] Drug form: INJ, Daily, Dosing Weight 87.727, kg, Patient is NPO, Start date: 09/03/16 9:00:00 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, Duration: 30 day, Stop date: 10/02/16 9:00:00 CSTNotes: For IV push reconstitute with 10 ml 0.9% sodium chloride and push over 2 minutes. (Same as: Protonix) Omeprazole 1.33 1 pkt, No Longer MG/ML / Sodium Route: PO, Active 2015 [facility] Bicarbonate Drug Form: 1.33 MEQ/ML PDR/REC, Oral Suspension Dosing Weight 87.727, kg, Daily, Start date: 09/03/16 9:00:00 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, Duration: 30 day, Stop date: 10/02/16 9:00:00 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 montelukast 10 mg, 1 No Longer tab, Route: Active 2015 [facility] PO, Drug form: TAB, Daily, Dosing Weight 87.727, kg, Start date: 09/03/16 9:00:00 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, Duration: 30 day, Stop date: 10/02/16 9:00:00 CSTNotes: (Same as:Singulair ) Metolazone 10 10 mg, 4 No Longer MG Oral Tablet tab, Route: Active 2015 [facility] PO, Drug form: TAB, Daily, Dosing Weight 87.727, kg, Start date: 09/03/16 9:00:00 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, Duration: 30 day, Stop date: 10/02/16 9:00:00 CSTNotes: (Same as: Zaroxolyn) Hydroxyzine 25 mg, 1 No Longer Hydrochloride tab, Route: Active 2015 [facility] 25 MG Oral PO, Drug Tablet form: TAB, QID, Dosing Weight 87.727, kg, PRN Itching, Start date: 09/03/16 8:24:00 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, Duration: 30 day, Stop date: 10/03/16 8:23:00 CSTNotes: (Same as: Atarax) Avoid alcohol. Combivent Combivent No Longer Inhaler (own Inhaler (own Active 2015 [facility] med) med), (own med), Drug form: MISC, Route: INHALATION, QID, 09/02/16 22:55:00 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, Duration: 30 day, Stop date: 10/02/16 21:00:00 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 Amitriptyline 100 mg, 1 No Longer tab, Route: Active 2015 [facility] PO, Drug form: TAB, Bedtime, Dosing Weight 87.727, kg, Start date: 09/02/16 21:00:00 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, Duration: 30 day, Stop date: 10/01/16 21:00:00 CSTNotes: (Same as: Elavil) Alprazolam 0.25 0.25 mg, 0.5 No Longer MG Oral Tablet tab, Route: Active 2015 [facility] PO, Drug form: TAB, Bedtime, Dosing Weight 87.727, kg, Start date: 09/02/16 21:00:00 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, Duration: 30 day, Stop date: 10/01/16 21:00:00 CSTNotes: With food or milk (Same as: Xanax) Sucralfate 1 gm, 10 mL, No Longer Route: PO, Active 2015 [facility] Drug form: SUSP, Before Meals & Bedtime, Dosing Weight 87.727, kg, Start date: 09/02/16 21:00:00 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, Duration: 30 day, Stop date: 10/02/16 16:30:00 CSTNotes: Enteral feeds may interfere with the absorption of this medication. Shake well. Take 1 hr before or 2 hrs after antacids, dairy pdt, minerals & meals. (Same As: Carafate) Amitiza 24 No Longer microgram, 1 Active 2015 [facility] cap, Route: PO, Drug form: CAP, BID, Dosing Weight 87.727, kg, Start date: 09/02/16 17:00:00 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, Duration: 30 day, Stop date: 10/02/16 9:00:00 CSTNotes: Same as Amitiza (Do Not Crush) Non Formulary carvedilol 3.125 mg, 1 No Longer tab, Route: Active 2015 [facility] PO, Drug form: TAB, BID, Dosing Weight 87.727, kg, Start date: 09/02/16 17:00:00 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, Duration: 30 day, Stop date: 10/02/16 9:00:00 CSTNotes: Give with food. (Same As: Coreg) Amylases 685809 3 cap, No Longer UNT / Route: PO, Active 2015 [facility] Endopeptidases Drug Form: 08447 UNT / DRC, Dosing Lipase 96410 Weight UNT Enteric 87.727, kg, Coated Capsule QID, Start date: 09/02/16 17:00:00 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, Duration: 30 day, Stop date: 10/02/16 13:00:00 CSTNotes: Same as: Bev RAMIREZ 24 : lipase 24,000 units, protease 76,000 units, amylase 120,000 units potassium 20 mEq, 1 No Longer chloride tab, Route: Active 2015 [facility] PO, Drug form: ERTAB, [id number], Dosing Weight 87.727, kg, Start date: 09/02/16 17:00:00 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, Duration: 30 day, Stop date: 10/02/16 5:00:00 CSTNotes: (Same as: K-Dur 20) "Do Not Crush" With food and full glass of water Metoclopramide 10 mg, 1 No Longer 10 MG Oral tab, Route: Active 2015 [facility] Tablet PO, Drug form: TAB, [id number], Dosing Weight 87.727, kg, Start date: 09/02/16 17:00:00 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, Duration: 30 day, Stop date: 10/02/16 5:00:00 CSTNotes: (Same as: Reglan) Take 30 min before meals Meclizine 12.5 mg, 1 No Longer tab, Route: Active 2015 [facility] PO, Drug form: TAB, TID, Dosing Weight 87.727, kg, PRN Dizziness, Start date: 09/02/16 16:38:00 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, Duration: 30 day, Stop date: 10/02/16 16:37:00 CSTNotes: (Same as: Antivert) Methocarbamol 750 mg, 1 No Longer tab, Route: Active 2015 [facility] PO, Drug form: TAB, Q8H, Dosing Weight 87.727, kg, PRN Pain Score 4-6, Start date: 09/02/16 16:38:00 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, Duration: 30 day, Stop date: 10/02/16 16:37:00 CSTNotes: (Same as:Robaxin) Lactulose 667 10 gm, 15 No Longer MG/ML Oral mL, Route: Active 2015 [facility] Solution PO, Drug Form: SYRP, Dosing Weight 87.727, kg, BID, PRN Constipation , Start date: 09/02/16 16:37:00 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, Duration: 30 day, Stop date: 10/02/16 16:36:00 CSTNotes: (Same as:Chronulac ) Hydroxyzine 25 mg, 1 No Longer Hydrochloride tab, Route: Active 2015 [facility] 25 MG Oral PO, Drug Tablet form: TAB, TID, Dosing Weight 87.727, kg, PRN Itching, Start date: 09/02/16 16:37:00 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, Duration: 30 day, Stop date: 10/02/16 16:36:00 CSTNotes: (Same as: Atarax) Avoid alcohol. Albuterol 0.83 2.49 mg, 3 No Longer MG/ML Inhalant mL, Route: Active 2015 [facility] Solution INHALATION, Drug form: SOLN, Q6H, Dosing Weight 87.727, kg, PRN as needed for wheezing, Start date: 09/02/16 16:36:00 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, Duration: 30 day, Stop date: 10/02/16 16:35:00 CSTNotes: SEE RT DOCUMENTATIO N (Same as: Proventil) Albuterol 0.83 2.49 mg=3 Active MG/ML Inhalant mL, 2015 [facility] Solution INHALATION, Q6H, PRN wheezing, coughing, or shortness of breath, # 240 ea, 1 Refill(s) Omeprazole 40 1 cap, PO, Active MG / Sodium Daily, 0 2015 [facility] Bicarbonate Refill(s) 1100 MG Oral Capsule D5W 1/2NS 1,000 1,000 mL, No Longer mL + potassium Rate: 100 Active 2015 [facility] chloride 10 mEq ml/hr, Infuse over: 10 hr, Route: IV, Dosing Weight 87.727 kg, Total Volume: 1,000, Start date: 09/02/16 11:24:00 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, Duration: 30 day, Stop date: 10/02/16 11:23:00 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 Morphine 2 mg, 1 mL, No Longer Route: IVP, Active 2015 [facility] Drug form: INJ, Q4H, Dosing Weight 87.727, kg, PRN Other -See Comment, Start date: 09/02/16 11:01:00 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, Stop date: 10/02/16 11:00:00 CSTNotes: (Same as:MORPhine Sulfate) Flagyl 500 mg, 100 No Longer mL, Route: Active 2015 [facility] IVPB, Drug form: INJ, [id number], Dosing Weight 87.727, kg, Start date: 09/02/16 11:00:00 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, Duration: 30 day, Stop date: 10/02/16 3:00:00 CSTNotes: (Same as: Flagyl) Avoid alcohol. Dilaudid 0.5 mg, Inactive Route: IVP, 2015 [facility] Q4H, Dosing Weight 87.727, kg, PRN Pain Score 7-10, Start date: 09/02/16 10:58:00 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, Duration: 30 day, Stop date: 10/02/16 10:57:00 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 LVP solution 500 mL, Inactive with potassium Rate: 100 2015 [facility] 500 mL ml/hr, Infuse over: 5 hr, Route: IV, Dosing Weight 87.727 kg, Total Volume: 500, Start date: 09/02/16 10:54:00 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, Duration: 30 day, Stop date: 10/02/16 10:53:00 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 Ondansetron 4 mg, 2 mL, No Longer Route: IVP, Active 2015 [facility] Drug form: INJ, Q4H, Dosing Weight 87.727, kg, PRN Nausea & Vomiting, Start date: 09/02/16 10:50:00 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, Stop date: 10/02/16 10:49:00 CSTNotes: (Same as: Zofran) MEDICATION WASTE Product Size: 4 mg Product Wasted: ___ mg Acetaminophen 1 tab, PO, No Longer 325 MG / Q6H, PRN Active 2015 [facility] Hydrocodone Pain, X 15 Bitartrate 7.5 day, # 60 MG Oral Tablet tab, 0 [[place] 7.5/325] Refill(s) Fluconazole 200 mg, 1 Inactive tab, Route: 2015 [facility] PO, Drug form: TAB, [id number], Dosing Weight 86.364, kg, Start date: 08/31/16 9:00:00 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, Duration: 7 day, Stop date: 09/06/16 9:00:00 CSTNotes: (Same as: Diflucan) Ondansetron 4 4 mg=1 tab, No Longer 11/11/ MH MG Oral Tablet PO, Q8H, PRN Active 2015 [facility] [Zofran] Nausea/vomit ing, X 10 day, # 30 tab, 0 Refill(s) fluconazole 200 200 mg=1 No Longer MH mg oral tablet tab, PO, Active 2015 [facility] Daily, X 7 day, # 7 tab, 0 Refill(s) Tums 500 mg, 1 No Longer tab, Route: Active 2015 [facility] CHEW, Drug form: CHEWTAB, TID, Dosing Weight 86.364, kg, PRN Indigestion, Priority: NOW, Start date: 08/30/16 20:44:00 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, Duration: 30 day, Stop date: 09/29/16 20:43:00 CSTNotes: (Same As: Tums) Calcium Carbonate 500 wx=838 mg elemental calcium Dose= mg calcium carbonate ( mg elemental calcium) Ipratropium 500 No Longer [place] 0.2 microgram, Active 2015 [facility] MG/ML Inhalant 2.5 mL, Solution Route: NEB, Drug form: SOLN, Q4H, Dosing Weight 86.364, kg, PRN Wheezing, Start date: 08/30/16 20:42:00 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, Duration: 30 day, Stop date: 09/29/16 20:41:00 CSTNotes: SEE RT DOCUMENTATIO N (Same as:Atrovent) Ipratropium 500 Inactive [place] 0.2 microgram, 2015 [facility] MG/ML Inhalant 2.5 mL, Solution Route: NEB, Drug form: SOLN, ONCE, Dosing Weight 86.364, kg, Start date: 08/30/16 10:18:00 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, Stop date: 08/30/16 10:18:00 CSTNotes: SEE RT DOCUMENTATIO N (Same as:Atrovent) Fluconazole 200 mg, 100 No Longer mL, Route: Active 2015 [facility] IVPB, Drug form: INJ, [id number], Dosing Weight 86.364, kg, Start date: 08/30/16 9:00:00 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, Duration: 30 day, Stop date: 09/28/16 9:00:00 CSTNotes: (Same as: Diflucan) Do not refrigerate Amitriptyline 100 mg, 2 No Longer tab, Route: Active 2015 [facility] PO, Drug form: TAB, Bedtime, Dosing Weight 86.364, kg, Start date: 08/29/16 21:00:00 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, Duration: 30 day, Stop date: 09/27/16 21:00:00 CSTNotes: (Same as: Elavil) Alprazolam 0.25 0.25 mg, 1 Inactive MG Oral Tablet tab, Route: 2015 [facility] PO, Drug form: TAB, Bedtime, Dosing Weight 86.364, kg, Start date: 08/29/16 21:00:00 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, Duration: 30 day, Stop date: 09/27/16 21:00:00 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 Aztreonam 1 gm, Route: No Longer IVPB, Active 2015 [facility] ABXQ8H, Dosing Weight 86.364, kg, Start date: 08/29/16 17:00:00 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, Duration: 30 day, Stop date: 09/28/16 9:00:00 CSTNotes: (Same As: Azactam) Amylases 476262 3 cap, No Longer UNT / Route: PO, Active 2015 [facility] Endopeptidases Drug Form: 91677 UNT / DRC, Dosing Lipase 86118 Weight UNT Enteric 86.364, kg, Coated Capsule QID-With Food, Start date: 08/29/16 13:00:00 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, Duration: 30 day, Stop date: 09/28/16 12:00:00 CSTNotes: Same as: Bev RAMIREZ 24 : lipase 24,000 units, protease 76,000 units, amylase 120,000 units Ativan 2 mg, 1 mL, Inactive Route: IVP, 2015 [facility] Drug form: INJ, ONCE, Dosing Weight 86.364, kg, PRN Anxiety, Start date: 08/29/16 12:02:00 CSTNotes: (Same as: Ativan) Enoxaparin 40 mg, 0.4 No Longer mL, Route: Active 2015 [facility] SUB-Q, Drug form: INJ, [id number], Dosing Weight 86.364, kg, Start date: 08/29/16 12:00:00 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, Duration: 30 day, Stop date: 09/27/16 12:00:00 CSTNotes: (Same as: Lovenox) K-Dur 20 40 mEq, 2 Inactive tab, Route: 2015 [facility] PO, Drug form: ERTAB, Q1H, Start date: 08/29/16 10:00:00 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, Duration: 2 doses or times, Stop date: 08/29/16 11:00:00 CSTNotes: (Same as: K-Dur 20) "Do Not Crush" With food and full glass of water Lactulose 10 gm, 15 No Longer ml, Route: Active 2015 [facility] PO, Drug Form: SYRP, Dosing Weight 86.364, kg, BID, Start date: 08/29/16 9:00:00 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, Duration: 30 day, Stop date: 09/27/16 17:00:00 CSTNotes: (Same as:Chronulac ) Losartan 100 mg, 2 No Longer tab, Route: Active 2015 [facility] PO, Drug form: TAB, Daily, Dosing Weight 86.364, kg, Start date: 08/29/16 9:00:00 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, Duration: 30 day, Stop date: 09/27/16 9:00:00 CSTNotes: (Same as: Cozaar) Furosemide 40 40 mg, 1 No Longer MG Oral Tablet tab, Route: Active 2015 [facility] PO, Drug form: TAB, Daily, Dosing Weight 86.364, kg, Start date: 08/29/16 9:00:00 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, Duration: 30 day, Stop date: 09/27/16 9:00:00 CSTNotes: (Same as: Lasix) May cause GI upset. Give with food or milk. Cholestyramine 4 gm, 1 pkt, No Longer Resin Route: PO, Active 2015 [facility] Drug form: PDR/REC, BID, Dosing Weight 86.364, kg, Start date: 08/29/16 9:00:00 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, Duration: 30 day, Stop date: 09/27/16 17:00:00 CSTNotes: (Same As: Questran) carvedilol 3.125 mg, 1 No Longer tab, Route: Active 2015 [facility] PO, Drug form: TAB, BID, Dosing Weight 86.364, kg, Start date: 08/29/16 9:00:00 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, Duration: 30 day, Stop date: 09/27/16 17:00:00 CSTNotes: Give with food. (Same As: Coreg) Amitiza 24 No Longer microgram, 1 Active 2015 [facility] cap, Route: PO, Drug form: CAP, BID, Dosing Weight 86.364, kg, Start date: 08/29/16 9:00:00 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, Duration: 30 day, Stop date: 09/27/16 17:00:00 CSTNotes: Same as Amitiza (Do Not Crush) Non Formulary Amylases 068557 1 cap, Inactive UNT / Route: PO, 2015 [facility] Endopeptidases Drug Form: 35584 UNT / DRC, Dosing Lipase 67557 Weight UNT Enteric 86.364, kg, Coated Capsule QID-With [Creon 24] Food, Start date: 08/29/16 8:00:00 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, Duration: 30 day, Stop date: 09/27/16 21:00:00 CSTNotes: Same as: Creon DRC 24 : lipase 24,000 units, protease 76,000 units, amylase 120,000 units Methocarbamol 750 mg, 1 No Longer tab, Route: Active 2015 [facility] PO, Drug form: TAB, Q8H, Dosing Weight 86.364, kg, Start date: 08/29/16 8:00:00 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, Duration: 30 day, Stop date: 09/28/16 0:00:00 CSTNotes: (Same as:Robaxin) Sucralfate 1 gm, 10 mL, No Longer Route: PO, Active 2015 [facility] Drug form: SUSP, Before Meals & Bedtime, Dosing Weight 86.364, kg, Start date: 08/29/16 7:30:00 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, Duration: 30 day, Stop date: 09/27/16 21:00:00 CSTNotes: Enteral feeds may interfere with the absorption of this medication. Shake well. Take 1 hr before or 2 hrs after antacids, dairy pdt, minerals & meals. (Same As: Carafate) Reglan 10 mg, 1 No Longer tab, Route: Active 2015 [facility] PO, Drug form: TAB, [id number], Dosing Weight 86.364, kg, Start date: 08/29/16 3:00:00 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, Duration: 30 day, Stop date: 09/27/16 15:00:00 CSTNotes: (Same as: Reglan) Take 30 min before meals Alprazolam 0.25 0.25 mg, 1 No Longer MG Oral Tablet tab, Route: Active 2015 [facility] PO, Drug form: TAB, Bedtime, Dosing Weight 86.364, kg, Start date: 08/29/16 2:20:00 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, Duration: 30 day, Stop date: 09/27/16 21:00:00 CSTNotes: With food or milk (Same as: Xanax) Flagyl 500 mg, 100 No Longer mL, Route: Active 2015 [facility] IVPB, Drug form: INJ, [id number], Dosing Weight 86.364, kg, Start date: 08/29/16 2:00:00 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, Duration: 30 day, Stop date: 09/27/16 18:00:00 CSTNotes: (Same as: Flagyl) Avoid alcohol. potassium 40 mEq, 2 Inactive chloride tab, Route: 2015 [facility] PO, Drug form: ERTAB, ONCE, Dosing Weight 86.364, kg, Start date: 08/29/16 1:57:00 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, Stop date: 08/29/16 1:57:00 CSTNotes: (Same as: K-Dur 20) "Do Not Crush" With food and full glass of water Metoclopramide 10 mg, 1 Inactive 10 MG Oral tab, Route: 2016 [facility] Tablet PO, Drug form: TAB, [id number], Dosing Weight 86.364, kg, Start date: 08/29/16 1:00:00 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, Duration: 30 day, Stop date: 09/27/16 13:00:00 CSTNotes: (Same as: Reglan) Take 30 min before meals Hydroxyzine 25 mg, 1 No Longer Hydrochloride tab, Route: Active 2015 [facility] 25 MG Oral PO, Drug Tablet form: TAB, TID, Dosing Weight 86.364, kg, PRN Itching, Start date: 08/29/16 0:53:00 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, Duration: 30 day, Stop date: 09/28/16 0:52:00 CSTNotes: (Same as: Atarax) Avoid alcohol. 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, Duration: 30 day, Stop date: 09/28/16 0:52:00 CSTNotes: (Same as: Antivert) potassium 20 mEq, PO, On Hold chloride [id number], 0 2015 Refill(s) carvedilol 3.125 mg=1 Inactive 3.125 mg oral tab, PO, 2015 [facility] tablet BID, 0 Refill(s) Alprazolam 0.25 0.25 mg=1 On Hold MG Oral Tablet tab, PO, 2015 Bedtime, 0 Refill(s) 120 ACTUAT 1 puff, Inactive Albuterol 0.1 INHALATION, 2015 MG/ACTUAT / QID, 0 Ipratropium Refill(s) [place] 0.02 MG/ACTUAT Metered Dose Inhaler [Combivent 20/100] Metoclopramide 10 mg=1 tab, On Hold 10 MG Oral PO, [id number], 2015 Tablet 0 Refill(s) methocarbamol 1,500 mg=2 Inactive 750 mg oral tab, PO, 2015 tablet TID, 0 Refill(s) lubiprostone 24 On Hold 0.024 MG Oral microgram=1 2015 [facility] Capsule cap, PO, [Amitiza] BID, 0 Refill(s) Amylases 131812 1 cap, PO, Inactive UNT / QID, 0 2015 [facility] Refill(s) 64497 UNT / Lipase 97231 UNT Enteric Coated Capsule [Creon 24] Sucralfate =10 ml, PO, On Hold Before Meals 2015 & Bedtime, # 200 ml, 0 Refill(s) Metolazone 5 MG 5 mg=1 tab, Inactive Oral Tablet PO, Daily, 0 2015 Refill(s) Tums 500 mg, 1 Inactive tab, Route: 2015 [facility] CHEW, Drug form: CHEWTAB, ONCE, Dosing Weight 86.364, kg, Start date: 08/29/16 0:14:00 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, Stop date: 08/29/16 0:14:00 CSTNotes: (Same As: Tums) Calcium Carbonate 500 or=305 mg elemental calcium Dose= mg calcium carbonate ( mg elemental calcium) Sodium Chloride 250 mL, No Longer 0.9% IV Route: IVPB, Active 2015 [facility] Start date: 08/28/16 22:09:00 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, Duration: 30 day, Stop date: 09/27/16 22:08:00 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, PRN Line Flush BD Normal 10 mL, No Longer Saline Flush Route: IVP, Active 2015 [facility] Drug Form: INJ, PRN, PRN Line Flush, Start date: 08/28/16 22:09:00 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, Duration: 30 day, Stop date: 09/27/16 22:08:00 CSTNotes: (Same as: BD Posiflush) Tums 500 mg, 1 Inactive tab, Route: 2015 [facility] CHEW, Drug form: CHEWTAB, ONCE, Dosing Weight 86.364, kg, PRN Indigestion, Start date: 08/28/16 22:07:00 CSTNotes: (Same As: Tums) Calcium Carbonate 500 rm=313 mg elemental calcium Dose= mg calcium carbonate ( mg elemental calcium) Sodium Chloride 1,000 mL, No Longer 0.154 MEQ/ML Rate: 75 Active 2015 [facility] Injectable ml/hr, Solution Infuse over: 13.3 hr, Route: IV, Dosing Weight 87.273 kg, Total Volume: 1,000, Start date: 08/28/16 21:53:00 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, Duration: 30 day, Stop date: 09/27/16 21:52:00 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 Zofran 4 mg, 2 mL, No Longer Route: IVP, Active 2015 [facility] Drug form: INJ, Q6H, Dosing Weight 87.273, kg, PRN Nausea, Start date: 08/28/16 21:36:00 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, Duration: 30 day, Stop date: 09/27/16 21:35:00 CSTNotes: (Same as: Zofran) MEDICATION WASTE Product Size: 4 mg Product Wasted: ___ mg Morphine 2 mg, 1 mL, No Longer Route: IVP, Active 2015 [facility] Drug form: INJ, Q4H, Dosing Weight 87.273, kg, PRN Pain Score 7-10, Start date: 08/28/16 21:35:00 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, Duration: 30 day, Stop date: 09/27/16 21:34:00 CSTNotes: (Same as:MORPhine Sulfate) Potassium 20 mEq=1 No Longer Chloride 20 MEQ tab, PO, Active 2015 [facility] Extended BID, 0 Release Tablet Refill(s) Albuterol * Rt-Every 6 RESPIRATOR Active (Proventil Hours As Y 2015 [facility] 0.083% Needed (INHALATIO Medical 2.5MG/3ML *) N) Center 0.083 % Neb, 2.5 Mg Respiratory (Inhalation) Carbamazepine Active (Carbamazepine 2015 [facility] Er) 200 Mg Tab, Medical Center Dicyclomine Hcl Three Times ORAL Active (Dicyclomine A Day 2015 [facility] Hcl 10 Mg Medical (Bentyl)*) 10 Center Mg Cap, 10 Mg Oral Gabapentin Twice A Day ORAL Active (Gabapentin 400 2016 [facility] Mg (Neurontin) Medical *) 400 Mg Cap, Center 400 Mg Oral Hydrocodone-Heriberto Every 4 Hrs ORAL Active taminophen As Needed 2015 [facility] 10/325MG* Medical ([place] 10/325 Center Mg *) 1 Tab Tab, 1 Tab Oral Hydroxyz 25MG Three Times ORAL Active 25 Mg , 25 Mg A Day 2015 [facility] Oral Medical Center Levofloxacin Daily ORAL Active (Levofloxacin 2015 [facility] 750 Mg) 750 Mg Medical Tab, 1 Tab Oral Center Losartan Daily ORAL Active Potassium 2015 [facility] (Cozaar 100 Mg Medical *) 100 Mg Tab, Center 100 Mg Oral Metoclopramide Twice A Day ORAL Active rda Hcl 2015 [facility] (Metoclopramide Medical Hcl 10 Mg) 10 Center Mg Tab, 10 Mg Oral Omeprazole/Sod Daily ORAL Active a Bicarb 2015 [facility] Mg (Zegerid) 1 Medical Pow Pow, 40 Mg Center Oral Pancrelipase Four Times ORAL Active a (Lipase-Proteas Daily 2015 [facility] e- (Creon Medical 24,000 Unt) Center 24,000 Unt Cap, 1 Tab Oral Potassium Twice Daily ORAL Active Chloride After Meals 2015 [facility] (Klor-Con *) 10 Medical Meq Tab, 10 Meq Center Oral Topiramate Twice A Day ORAL Active (Topiramate 50 2016 [facility] Mg (Topamax) *) Medical 50 Mg Tab, 50 Center Mg Oral Flumazenil 0.1 mg, 1 No Longer Sugar mL, Route: Active 2015 [facility] IVP, Drug form: INJ, Q5Min, Dosing Weight 87.273, kg, PRN Benzodiazepi ne Reversal, Start date: 08/22/16 9:00:00 CDT, Duration: 30 day, Stop date: 09/21/16 7:59:00 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, Subsequent dosesNotes: (Same as: Romazicon) Naloxone 0.1 mg, 0.25 No Longer Sugar mL, Route: Active 2015 [facility] IVP, Drug form: INJ, Q2MIN, Dosing Weight 87.273, kg, PRN Narcotic Reversal, Start date: 08/22/16 9:00:00 CDT, Duration: 4 doses or times, Stop date: Limited # of timesNotes: Same as Narcan Coumadin 7.5 mg, 1 Inactive tab, Route: 2015 [facility] PO, Drug form: TAB, QPM, Start date: 03/28/16 15:00:00 CDT, Duration: 30 day, Stop date: 04/26/16 15:00:00 CDTNotes: Nurse to ensure documentatio n of patient education per anticoagulat ion policy. Avoid large intake of vitamin-K containing foods diet. WASTE: F/P - P Waste Black; E - P Waste Black (Same As: Coumadin) Lovenox 90 mg, 0.9 Inactive mL, Route: 2015 [facility] SUB-Q, Drug form: INJ, ONCE, Start date: 03/28/16 14:13:00 CDT, Stop date: 03/28/16 14:13:00 CDTNotes: Nurse to ensure documentatio n of patient education per anticoagulat ion policy. (Same as: Lovenox) Furosemide 40 40 mg=1 tab, Active MG Oral Tablet PO, Daily, # 2015 30 tab, 0 Refill(s) Metolazone 10 10 mg=1 tab, Active MG Oral Tablet PO, Daily, # 2015 30 tab, 0 Refill(s) predniSONE 10 10 mg=1 tab, Active mg oral tablet PO, Daily, X 2015 30 day, # 30 tab, 0 Refill(s) Warfarin Sodium 5 mg=1 tab, Active 5 MG Oral PO, Daily, # 2015 Tablet 30 tab, 0 [Coumadin] Refill(s) Omeprazole 40 1 cap, PO, Active MG / Sodium Daily, X 30 2015 Bicarbonate day, # 30 1100 MG Oral cap, 0 Capsule Refill(s) [Zegerid Reformulated May 2006] ferrous sulfate 325 mg, 1 Inactive tab, Route: 2015 PO, Drug form: TAB, TID, Dosing Weight 94, kg, Start date: 03/28/16 9:00:00 CDT, Duration: 30 day, Stop date: 04/26/16 17:00:00 CDTNotes: Give with food. iron elemental 20bl=192hr as ferrous sulfate Dose=___mg elemental iron Lactulose 667 10 gm, 15 No Longer MG/ML Oral mL, Route: Active 2015 [facility] Solution PO, Drug Form: SYRP, Dosing Weight 94, kg, BID, PRN Constipation , Start date: 03/27/16 12:18:00 CDT, Duration: 30 day, Stop date: 04/26/16 12:17:00 CDTNotes: (Same as:Chronulac ) Miralax 17 gm, 1 No Longer pkt, Route: Active 2015 [facility] PO, Drug form: PWDR, Daily, Dosing Weight 94, kg, Start date: 03/27/16 9:00:00 CDT, Duration: 30 day, Stop date: 04/25/16 9:00:00 CDTNotes: Dissolve in 8 oz of water or juice. (Same as: Miralax) Omeprazole 40 mg, No Longer Route: PO, Active 2015 [facility] Drug form: DRC, Daily, Dosing Weight 94, kg, Start date: 03/27/16 9:00:00 CDT, Duration: 30 day, Stop date: 04/25/16 9:00:00 CDT Cholestyramine 4 gm, 1 pkt, No Longer Resin Route: PO, Active 2015 [facility] Drug form: PDR/REC, BID, Dosing Weight 94, kg, Start date: 03/26/16 17:00:00 CDT, Duration: 30 day, Stop date: 04/25/16 9:00:00 CDTNotes: (Same As: Questran) Lactulose 667 10 gm=15 mL, Active MG/ML Oral PO, BID, PRN 2015 [facility] Solution constipation , # 240 mL, 0 Refill(s) Protonix 40 mg, 1 No Longer tab, Route: 2015 [facility] PO, Drug form: ECTAB, Before Dinner, Start date: 03/26/16 16:30:00 CDT, Duration: 30 day, Stop date: 04/24/16 16:30:00 CDTNotes: Tablet should not be chewed or crushed. (Same as: Protonix) omeprazole 40 40 mg=1 cap, No Longer mg oral delayed PO, Daily, # Active 2015 [facility] release capsule 30 cap, 0 Refill(s) Esomeprazole 40 40 mg=1 cap, No Longer MG Enteric PO, Daily, # Active 2015 [facility] Coated Capsule 30 cap, 0 Refill(s) Cholestyramine 4 gm, PO, Active Resin BID, 0 2015 [facility] Refill(s) Miralax 17 gm, PO, Active Daily, 0 2015 [facility] Refill(s) Coumadin 10 mg, 1 No Longer tab, Route: Active 2015 [facility] PO, Drug form: TAB, Q5PM, Start date: 03/25/16 11:08:00 CDT, Duration: 3 doses or times, Stop date: 03/26/16 17:00:00 CDTNotes: Nurse to ensure documentatio n of patient education per anticoagulat ion policy. Avoid large intake of vitamin-K containing foods diet. (Same As: Coumadin) WASTE: F/P - P Waste Black; E - P Waste Black acetaminophen-h 1 tab, Inactive ydrocodone 325 Route: PO, 2015 [facility] mg-10 mg oral Drug Form: tablet TAB, ONCE, Start date: 03/25/16 11:05:00 CDT, Stop date: 03/25/16 11:05:00 CDTNotes: Do not exceed 4gm/day of acetaminophe n. (Same as: [place] 325/10) Klor-Con 10 10 mEq, 1 No Longer tab, Route: Active 2015 [facility] PO, Drug form: ERTAB, Daily, Dosing Weight 94, kg, Start date: 03/25/16 9:00:00 CDT, Duration: 30 day, Stop date: 04/23/16 9:00:00 CDTNotes: (Same as: K-Dur 10) "Do Not Crush" With food and full glass of water montelukast 10 mg, 1 No Longer tab, Route: Active 2015 [facility] PO, Drug form: TAB, Daily, Dosing Weight 94, kg, Start date: 03/25/16 9:00:00 CDT, Duration: 30 day, Stop date: 04/23/16 9:00:00 CDTNotes: (Same as:Singulair ) Losartan 100 mg, 2 No Longer tab, Route: Active 2015 [facility] PO, Drug form: TAB, Daily, Dosing Weight 94, kg, Start date: 03/25/16 9:00:00 CDT, Duration: 30 day, Stop date: 04/23/16 9:00:00 CDTNotes: (Same as: Sumanzacurtis) Metoclopramide 10 mg, 1 No Longer 10 MG Oral tab, Route: Active 2015 [facility] Tablet [Reglan] PO, Drug form: TAB, QID-Before Meals, Dosing Weight 94, kg, Start date: 03/24/16 21:00:00 CDT, Duration: 30 day, Stop date: 04/23/16 16:30:00 CDTNotes: (Same as: Reglan) Take 30 min before meals Sucralfate 1 gm, 1 tab, No Longer Route: PO, Active 2015 [facility] Drug form: TAB, Before Meals & Bedtime, Dosing Weight 94, kg, Start date: 03/24/16 21:00:00 CDT, Duration: 30 day, Stop date: 04/23/16 16:30:00 CDTNotes: May interfere w/enteral feeds - Take 1 hr before or 2 hr after antacids, dairy pdt, meals & minerals - On empty stomach. (Same As: Carafate) Amitriptyline 100 mg, 1 No Longer tab, Route: Active 2015 [facility] PO, Drug form: TAB, Bedtime, Dosing Weight 94, kg, Start date: 03/24/16 21:00:00 CDT, Duration: 30 day, Stop date: 04/22/16 21:00:00 CDTNotes: (Same as: Elavil) acetaminophen-h 1 tab, No Longer ydrocodone 325 Route: PO, Active 2015 [facility] mg-10 mg oral Drug Form: tablet TAB, Q4H, PRN Pain Score 4-6, Start date: 03/24/16 20:50:00 CDT, Duration: 30 day, Stop date: 04/23/16 20:49:00 CDTNotes: Do not exceed 4gm/day of acetaminophe n. (Same as: [place] 325/10) Zofran 4 mg, 1 tab, No Longer Route: PO, Active 2015 [facility] Drug form: TAB, Q8H, PRN Nausea, Start date: 03/24/16 20:44:00 CDT, Duration: 30 day, Stop date: 04/23/16 20:43:00 CDTNotes: (Same as: Zofran) lactulose 30 gm, 45 Inactive mL, Route: 2015 [facility] PO, Drug form: SYRP, ONCE, Start date: 03/24/16 20:43:00 CDT, Stop date: 03/24/16 20:43:00 CDTNotes: (Same as:Chronulac ) Albuterol 1 2.5 mg, 0.5 Inactive MG/ML Inhalant mL, Route: 2015 [facility] Solution INHALATION, Q6H, Dosing Weight 94, kg, Start date: 03/24/16 18:00:00 CDT, Duration: 30 day, Stop date: 04/23/16 12:00:00 CDT Amylases 711662 3 cap, No Longer UNT / Route: PO, Active 2015 [facility] Endopeptidases Drug Form: 69900 UNT / DRC, Dosing Lipase 56838 Weight 94, UNT Enteric kg, QID, Coated Capsule Start date: 03/24/16 17:00:00 CDT, Duration: 30 day, Stop date: 04/23/16 13:00:00 CDTNotes: Same as: Keithon DRC 24 : lipase 24,000 units, protease 76,000 units, amylase 120,000 units benzonatate 100 mg, 1 No Longer cap, Route: Active 2015 [facility] PO, Drug form: CAP, TID, Dosing Weight 94, kg, Start date: 03/24/16 17:00:00 CDT, Duration: 30 day, Stop date: 04/23/16 13:00:00 CDTNotes: (Same As: Naida Pearce) "Do Not Crush" carvedilol 3.125 mg, 1 No Longer tab, Route: Active 2015 [facility] PO, Drug form: TAB, BID, Dosing Weight 94, kg, Start date: 03/24/16 17:00:00 CDT, Duration: 30 day, Stop date: 04/23/16 9:00:00 CDTNotes: Give with food. (Same As: Coreg) senna 8.6 mg 8.6 mg, 1 No Longer oral tablet tab, Route: Active 2015 [facility] PO, Drug Form: TAB, Dosing Weight 94, kg, BID, PRN Constipation , Start date: 03/24/16 16:43:00 CDT, Duration: 30 day, Stop date: 04/23/16 16:42:00 CDTNotes: (Same as: Satnamot) Meclizine 12.5 mg, 1 No Longer tab, Route: Active 2015 [facility] PO, Drug form: TAB, TID, Dosing Weight 94, kg, PRN Dizziness, Start date: 03/24/16 16:40:00 CDT, Duration: 30 day, Stop date: 04/23/16 16:39:00 CDTNotes: (Same as: Antivert) Hydroxyzine 25 mg, 1 No Longer Hydrochloride tab, Route: Active 2015 [facility] 25 MG Oral PO, Drug Tablet form: TAB, TID, Dosing Weight 94, kg, PRN Itching, Start date: 03/24/16 16:39:00 CDT, Duration: 30 day, Stop date: 04/23/16 16:38:00 CDTNotes: (Same as: Atarax) Avoid alcohol. albuterol 2.49 mg, 3 No Longer 0.083% mL, Route: Active 2015 [facility] inhalation NEB, Drug solution form: SOLN, RQ6H, Start date: 03/24/16 14:00:00 CDT, Duration: 30 day, Stop date: 04/23/16 8:00:00 CDTNotes: SEE RT DOCUMENTATIO N (Same as: Proventil) Methocarbamol 750 mg, 1 No Longer tab, Route: Active 2015 [facility] PO, Drug form: TAB, TID, Dosing Weight 94, kg, Start date: 03/24/16 13:00:00 CDT, Duration: 30 day, Stop date: 04/23/16 9:00:00 CDTNotes: (Same as:Robaxin) Tramadol 25 mg, 0.5 Inactive tab, Route: 2015 [facility] PO, Drug form: TAB, Q8H, Dosing Weight 94, kg, PRN Pain Score 1-5, Start date: 03/24/16 12:05:00 CDT, Duration: 30 day, Stop date: 04/23/16 12:04:00 CDTNotes: Not to exceed 400mg/day. (Same As: Ultram) Lovenox 90 mg, 0.9 No Longer mL, Route: Active 2015 [facility] SUB-Q, Drug form: INJ, [id number], Start date: 03/24/16 8:00:00 CDT, Duration: 30 day, Stop date: 04/23/16 2:00:00 CDTNotes: Nurse to ensure documentatio n of patient education per anticoagulat ion policy. (Same as: Lovenox) Sodium Chloride 250 mL, No Longer 0.9% IV Route: IVPB, Active 2015 [facility] Start date: 03/24/16 7:31:00 CDT, Duration: 30 day, Stop date: 04/23/16 7:30:00 CDT, PRN Line Flush BD Normal 10 mL, No Longer Saline Flush Route: IVP, Active 2015 [facility] Drug Form: INJ, PRN, PRN Line Flush, Start date: 03/24/16 7:31:00 CDT, Duration: 30 day, Stop date: 04/23/16 7:30:00 CDTNotes: (Same as: BD Posiflush) acetaminophen-c 2 tab, Inactive odeine 300 Route: PO, 2015 [facility] mg-30 mg oral Drug Form: tablet TAB, Q6H, PRN Pain Score 1-5, Start date: 03/24/16 7:30:00 CDT, Duration: 30 day, Stop date: 04/23/16 7:29:00 CDTNotes: Do not exceed 4gm/day of acetaminophe n. (Same as: Tylenol with Codeine # 3) acetaminophen-c 1 tab, Inactive odeine 300 Route: PO, 2015 [facility] mg-30 mg oral Drug Form: tablet TAB, Q6H, PRN Pain 4-6/Temp > 100.4 F, Start date: 03/24/16 7:29:00 CDT, Duration: 30 day, Stop date: 04/23/16 7:28:00 CDTNotes: Do not exceed 4gm/day of acetaminophe n. (Same as: Tylenol with Codeine # 3) Carvedilol Once Daily ORAL Active Lesli (Coreg *) 6.25 2016 [facility] Tab, 3.125 Medical Mg Oral Center Lactulose 667 10 gm=15 mL, Active MG/ML Oral PO, BID, PRN 2015 [facility] Solution constipation , No refill, X 16 day, # 240 mL, 0 Refill(s) Diflucan 150 mg, 1.5 Inactive tab, Route: 2015 [facility] PO, Drug form: TAB, ONCE, Dosing Weight 96.989, kg, Priority: STAT, Start date: 02/20/16 11:46:00 CDT, Stop date: 02/20/16 11:46:00 CDTNotes: (Same as: Diflucan) Albuterol 1 2.5 mg, 3.01 No Longer MG/ML Inhalant mL, Route: Active 2015 [facility] Solution NEB, Drug form: SOLN, Q6H, Dosing Weight 96.989, kg, Start date: 02/19/16 18:00:00 CDT, Duration: 30 day, Stop date: 03/20/16 12:00:00 CDTNotes: SEE RT DOCUMENTATIO N (Same as: Proventil) Albuterol 1 2.5 mg, NEB, Active MG/ML Inhalant Q6H, # 60 2015 [facility] Solution ea, 0 Refill(s) Sucralfate 1 gm, 1 tab, Inactive Route: PO, 2015 [facility] Drug form: TAB, Before Meals & Bedtime, Dosing Weight 96.989, kg, Start date: 02/17/16 16:30:00 CDT, Duration: 30 day, Stop date: 03/18/16 11:30:00 CDTNotes: May interfere w/enteral feeds - Take 1 hr before or 2 hr after antacids, dairy pdt, meals & minerals - On empty stomach. (Same As: Carafate) Metoclopramide 10 mg, 1 No Longer 10 MG Oral tab, Route: Active 2015 [facility] Tablet [Reglan] PO, Drug form: TAB, TID-Before Meals, Dosing Weight 96.989, kg, Start date: 02/17/16 16:30:00 CDT, Duration: 30 day, Stop date: 03/18/16 11:30:00 CDTNotes: (Same as: Reglan) Take 30 min before meals Carafate 1 gm, 10 mL, No Longer Route: PO, Active 2015 [facility] Drug form: SUSP, Before Meals & Bedtime, Start date: 02/17/16 16:30:00 CDT, Duration: 30 day, Stop date: 03/18/16 11:30:00 CDTNotes: Enteral feeds may interfere with the absorption of this medication. Shake well. Take 1 hr before or 2 hrs after antacids, dairy pdt, minerals & meals. (Same As: Carafate) Protonix 40 mg, No Longer Route: IVP, Active 2015 [facility] Drug form: INJ, BID, Dosing Weight 96.989, kg, Priority: NOW, Start date: 02/17/16 12:01:00 CDT, Stop date: 03/18/16 9:00:00 CDTNotes: For IV push reconstitute with 10 ml 0.9% sodium chloride and push over 2 minutes. (Same as: Protonix) montelukast 10 mg, 1 No Longer tab, Route: Active 2015 [facility] PO, Drug form: TAB, Daily, Dosing Weight 96.989, kg, Start date: 02/17/16 9:00:00 CDT, Duration: 30 day, Stop date: 03/17/16 9:00:00 CDTNotes: (Same as:Singulair ) sennosides, [facility] 8.6 mg, 1 No Longer tab, Route: Active 2015 [facility] PO, Drug Form: TAB, Dosing Weight 96.989, kg, Daily, Start date: 02/17/16 9:00:00 CDT, Duration: 30 day, Stop date: 03/17/16 9:00:00 CDTNotes: (Same as: Senokot) Alprazolam 0.25 mg, 1 No Longer tab, Route: Active 2015 [facility] PO, Drug form: TAB, Bedtime, Dosing Weight 96.989, kg, Start date: 02/16/16 21:00:00 CDT, Duration: 30 day, Stop date: 03/16/16 21:00:00 CDTNotes: With food or milk (Same as: Xanax) carvedilol 3.125 mg, 1 No Longer tab, Route: Active 2015 [facility] PO, Drug form: TAB, Q12H, Dosing Weight 96.989, kg, Start date: 02/16/16 21:00:00 CDT, Duration: 30 day, Stop date: 03/17/16 9:00:00 CDTNotes: Give with food. (Same As: Coreg) Amitriptyline 100 mg, 2 No Longer tab, Route: Active 2015 [facility] PO, Drug form: TAB, Bedtime, Dosing Weight 96.989, kg, Start date: 02/16/16 21:00:00 CDT, Duration: 30 day, Stop date: 03/16/16 21:00:00 CDTNotes: (Same as: Elavil) vancomycin + 1,000 mg, No Longer Sodium Chloride Route: IVPB, Active 2015 [facility] 0.9% IV 250 mL [id number], Start date: 02/16/16 18:00:00 CDT, Duration: 30 day, Stop date: 03/17/16 6:00:00 CDTNotes: TIME CRITICAL MEDICATION (Same As: Vancocin) Infusion rate 2001 mg: infuse over 2.5 hours MEDICATION WASTE Product Size: 1000 mg Product Wasted: ___ mg Amylases 347173 3 cap, No Longer UNT / Route: PO, Active 2015 [facility] Endopeptidases Drug Form: 16179 UNT / DRC, Dosing Lipase 50841 Weight UNT Enteric 96.989, kg, Coated Capsule QID, Start date: 02/16/16 17:00:00 CDT, Duration: 30 day, Stop date: 03/17/16 13:00:00 CDTNotes: Same as: Bev RAMIREZ 24 : lipase 24,000 units, protease 76,000 units, amylase 120,000 units Amylases [id number] 3 cap, PO, Active UNT / QID, # 120 2015 [facility] Endopeptidases cap, 0 11146 UNT / Refill(s) Lipase 18765 UNT Enteric Coated Capsule Metoclopramide 10 mg, 1 No Longer 10 MG Oral tab, Route: Active 2015 [facility] Tablet [Reglan] PO, Drug form: TAB, QID-Before Meals, Dosing Weight 96.989, kg, Start date: 02/16/16 16:30:00 CDT, Duration: 30 day, Stop date: 03/17/16 11:30:00 CDTNotes: (Same as: Reglan) Take 30 min before meals 120 ACTUAT 2 puff, No Longer Albuterol 0.1 Route: Active 2015 [facility] MG/ACTUAT / INHALATION, Ipratropium Drug Form: [place] 0.02 AERO, Dosing MG/ACTUAT Weight Metered Dose 96.989, kg, Inhaler QID, Start [Combivent date: ] 02/16/16 13:00:00 CDT, Duration: 30 day, Stop date: 03/17/16 9:00:00 CDTNotes: Same as: Combivent Respimat WASTE: Aerosol - Return to Pharmacy Amylases 175304 1 cap, Inactive UNT / Route: PO, 2015 [facility] Endopeptidases Drug Form: 72798 UNT / DRC, Dosing Lipase 76777 Weight UNT Enteric 96.989, kg, Coated Capsule QID-With [Creon 24] Food, Start date: 02/16/16 13:00:00 CDT, Duration: 30 day, Stop date: 03/17/16 12:00:00 CDTNotes: Same as: Creon DRC 24 : lipase 24,000 units, protease 76,000 units, amylase 120,000 units Lactulose 20 gm, 30 No Longer ml, Route: Active 2015 [facility] PO, Drug Form: SYRP, Dosing Weight 96.989, kg, TID, Start date: 02/16/16 13:00:00 CDT, Duration: 30 day, Stop date: 03/17/16 9:00:00 CDTNotes: (Same as:Chronulac ) benzonatate 100 mg, 1 No Longer cap, Route: Active 2015 [facility] PO, Drug form: CAP, TID, Dosing Weight 96.989, kg, Start date: 02/16/16 13:00:00 CDT, Duration: 30 day, Stop date: 03/17/16 9:00:00 CDTNotes: (Same As: Naida Pearce) "Do Not Crush" Meclizine 12.5 mg, 1 No Longer tab, Route: Active 2015 [facility] PO, Drug form: TAB, TID, Dosing Weight 96.989, kg, PRN Dizziness, Start date: 02/16/16 11:40:00 CDT, Duration: 30 day, Stop date: 03/17/16 11:39:00 CDTNotes: (Same as: Antivert) Hydroxyzine 25 mg, 1 No Longer Hydrochloride tab, Route: Active 2015 [facility] 25 MG Oral PO, Drug Tablet form: TAB, TID, Dosing Weight 96.989, kg, PRN Itching, Start date: 02/16/16 11:40:00 CDT, Duration: 30 day, Stop date: 03/17/16 11:39:00 CDTNotes: (Same as: Atarax) Avoid alcohol. Miralax 17 gm, 1 No Longer pkt, Route: Active 2015 [facility] PO, Drug form: PWDR, Daily, Dosing Weight 96.989, kg, Start date: 02/16/16 11:39:00 CDT, Duration: 30 day, Stop date: 03/17/16 9:00:00 CDTNotes: Dissolve in 8 oz of water or juice. (Same as: Miralax) D5W 1/2NS + KCL 1,000 mL, No Longer 20mEq/L 1000ml Rate: 75 Active 2015 [facility] (Premix) 1,000 ml/hr, mL Infuse over: 13.3 hr, Route: IV, Dosing Weight 96.989 kg, Total Volume: 1,000, Start date: 02/16/16 11:33:00 CDT, Duration: 30 day, Stop date: 03/17/16 11:32:00 CDTNotes: PREMIX IV - Do Not Alter WASTE: F/P - Sink; E - Municipal Trash Bin phenol topical 1 spray, No Longer 1.4% spray Route: Active 2015 [facility] MUCOUS MEM, Q1H, Drug form: SPRY, PRN Sore Throat, Start date: 02/15/16 21:52:00 CDT, Duration: 30 day, Stop date: 03/16/16 21:51:00 CDTNotes: Chloraseptic [place] (Same as: Chloraseptic , Sore Throat [place]) WASTE: F/P - Black; E - Municipal Trash Bin cefepime 1 gm, Route: No Longer IVPB, Active 2015 [facility] ABXQ8H, Dosing Weight 90.909, kg, (CrCl >/=50 ml/min), Start date: 02/15/16 19:00:00 CDT, Duration: 30 day, Stop date: 03/16/16 16:00:00 CDTNotes: (Same As: Maxipime) MEDICATION WASTE Product Size: 1000 mg Product Wasted: ___ mg Hydralazine 10 mg, 1 No Longer Hydrochloride tab, Route: Active 2015 [facility] 10 MG Oral PO, Drug Tablet form: TAB, Q6H, Dosing Weight 90.909, kg, PRN Hypertension , Start date: 02/15/16 18:31:00 CDT, Duration: 30 day, Stop date: 03/16/16 18:30:00 CDT, SBP >165Notes: (Same as: Apresoline) May interfere w/enteral feedings. Take With Food Labetalol 5 mg, 1 mL, No Longer Route: IVP, Active 2015 [facility] Drug form: INJ, Q3H, Dosing Weight 90.909, kg, PRN Hypertension , Start date: 02/15/16 18:31:00 CDT, Duration: 30 day, Stop date: 03/16/16 18:30:00 CDT, SBP >165 B/LNotes: (Same as: Normodyne, Trandate) Push over 2 minutes Give bolus over 2-3 minutes. potassium 20 mEq, 1 No Longer chloride tab, Route: Active 2015 [facility] PO, Drug form: ERTAB, ONCE, Dosing Weight 90.909, kg, PRN Abnormal Lab Result, Start date: 02/15/16 18:31:00 CDT, serum Potassium Notes: (Same as: K-Dur 20) "Do Not Crush" With food and full glass of water Docusate Sodium 100 mg, 1 No Longer 100 MG Oral cap, Route: Active 2015 [facility] Capsule PO, Drug [Colace] form: CAP, Daily, Dosing Weight 90.909, kg, PRN Constipation , Start date: 02/15/16 18:31:00 CDT, Duration: 30 day, Stop date: 03/16/16 18:30:00 CDTNotes: (Same as: Colace) (Do Not Crush) Lactulose 10 gm, 15 No Longer ml, Route: Active 2015 [facility] PO, Drug Form: SYRP, Dosing Weight 90.909, kg, Daily, PRN Constipation , Start date: 02/15/16 18:31:00 CDT, Duration: 30 day, Stop date: 03/16/16 18:30:00 CDTNotes: (Same as:Chronulac ) Zofran 4 mg, 2 mL, No Longer Route: IV, Active 2015 [facility] Drug form: INJ, Q6H, Dosing Weight 90.909, kg, PRN Nausea, Start date: 02/15/16 18:31:00 CDT, Duration: 30 day, Stop date: 03/16/16 18:30:00 CDTNotes: (Same as: Zofran) MEDICATION WASTE Product Size: 4 mg Product Wasted: ___ mg Melatonin 3 MG 3 mg, 1 tab, No Longer Extended Route: PO, Active 2015 [facility] Release Tablet Drug Form: TAB, Dosing Weight 90.909, kg, Bedtime, PRN as needed for insomnia, Start date: 02/15/16 18:31:00 CDT, Duration: 30 day, Stop date: 03/16/16 18:30:00 CDTNotes: (Same as: Melatonin) Morphine 2 mg, 1 mL, No Longer Route: IVP, 2015 [facility] Drug form: INJ, Q4H, Dosing Weight 90.909, kg, PRN Pain Score 7-10, Start date: 02/15/16 18:31:00 CDT, Duration: 30 day, Stop date: 03/16/16 18:30:00 CDTNotes: (Same as:MORPhine Sulfate) Tylenol 325 mg, 1 No Longer tab, Route: Active 2015 [facility] PO, Drug form: TAB, Q6H, Dosing Weight 90.909, kg, PRN Pain Score 1-3, Start date: 02/15/16 18:31:00 CDT, Duration: 30 day, Stop date: 03/16/16 18:30:00 CDTNotes: Do not exceed 4 gm/day. (Same as: Tylenol) Bisacodyl 10 mg, 1 No Longer supp, Route: Active 2015 [facility] AL, Drug form: SUPP, Daily, Dosing Weight 90.909, kg, PRN Constipation , Start date: 02/15/16 18:31:00 CDT, Duration: 30 day, Stop date: 03/16/16 18:30:00 CDTNotes: (Same As: Dulcolax, Bisco-Lax) Flagyl 500 mg, 100 No Longer mL, Route: Active 2015 [facility] IVPB, Drug form: INJ, ABXQ8H, Dosing Weight 90.909, kg, Priority: NOW, Start date: 02/15/16 18:26:00 CDT, Duration: 30 day, Stop date: 03/16/16 16:00:00 CDTNotes: (Same as: Flagyl) Avoid alcohol. Golytely 4,000 ml, Inactive Route: NG2015 [facility] Drug Form: PDR/REC, Dosing Weight 90.909, kg, ONCE, Start date: 02/15/16 18:22:00 CDT, Duration: 1 doses or times, Stop date: 02/15/16 18:22:00 CDTNotes: (polyethylen e glycol electrolyte solution 4 Liter bottle) (Same as: Golytely, Colyte) Morphine 2 mg, 1 mL, No Longer Route: IVP, Active 2015 [facility] Drug form: INJ, Q4H, Dosing Weight 90.909, kg, PRN Chest Pain, Start date: 02/15/16 17:03:00 CDT, Duration: 30 day, Stop date: 03/16/16 17:02:00 CDTNotes: (Same as:MORPhine Sulfate) Reglan 10 mg, 2 mL, No Longer Route: IVP, Active 2015 [facility] Drug form: INJ, Q6H, Dosing Weight 90.909, kg, PRN Nausea & Vomiting, Start date: 02/15/16 17:03:00 CDT, Duration: 30 day, Stop date: 03/16/16 17:02:00 CDTNotes: (Same as: Reglan) Fleet Enema 133 mL, No Longer Route: AL, Active 2015 [facility] Drug Form: GREG, Dosing Weight 90.909, kg, ONCE, Start date: 02/15/16 16:56:00 CDT, Stop date: 02/15/16 16:56:00 CDT, For Constipation > 12 years, Pediatric Dosing Golytely 4,000 ml, Inactive Route: PO, 2015 [facility] Drug Form: PDR/REC, Dosing Weight 90.909, kg, ONCE, Start date: 02/15/16 16:51:00 CDT, Duration: 1 doses or times, Stop date: 02/15/16 16:51:00 CDTNotes: (polyethylen e glycol electrolyte solution 4 Liter bottle) (Same as: Golytely, Colyte) Metronidazole 500 mg, 100 Inactive mL, Route: 2015 [facility] IVPB, Drug form: INJ, ONCE, Dosing Weight 90.909, kg, Priority: STAT, Start date: 02/15/16 16:38:00 CDT, Stop date: 02/15/16 16:38:00 CDTNotes: (Same as: Flagyl) Avoid alcohol. cefepime 1 gm, Route: Inactive IVPB, ONCE, 2015 [facility] Dosing Weight 90.909, kg, Priority: STAT, Start date: 02/15/16 16:35:00 CDT, Stop date: 02/15/16 16:35:00 CDTNotes: (Same As: Maxipime) MEDICATION WASTE Product Size: 1000 mg Product Wasted: ___ mg Morphine 4 mg, 1 mL, Inactive Route: IVP, 2015 [facility] Drug form: INJ, ONCE, Dosing Weight 90.909, kg, Priority: STAT, Start date: 02/15/16 14:31:00 CDT, Stop date: 02/15/16 14:31:00 CDTNotes: (Same as:MORPhine Sulfate) Zofran 4 mg, Route: Inactive IVP, Drug 2015 [facility] form: INJ, ONCE, Dosing Weight 90.909, kg, Priority: STAT, Start date: 02/15/16 11:58:00 CDT, Stop date: 02/15/16 11:58:00 CDT Morphine 2 mg, Route: Inactive IVP, Drug 2015 [facility] form: INJ, ONCE, Dosing Weight 90.909, kg, Priority: STAT, Start date: 02/15/16 11:57:00 CDT, Stop date: 02/15/16 11:57:00 CDT Saline Flush 10 mL, No Longer 0.9% Route: IVP, Active 2015 [facility] Drug Form: INJ, Dosing Weight 90.909, kg, PRN, PRN Line Flush, Start date: 02/15/16 11:39:00 CDT, Duration: 30 day, Stop date: 03/16/16 11:38:00 CDTNotes: (Same as: BD Posiflush) midazolam 1 mg, 1 mL, Active [facility] Route: IVP, 2015 [facility] Drug form: Center INJ, PRN, PRN Other -See Comment, Start date: 01/04/16 10:30:00, Duration: 30 day, Stop date: 02/03/16 10:29:00Note s: (Same as: Versed) MEDICATION WASTE Product Size: 5 mg Product Wasted: ___ mg Sublimaze 50 Active [facility] microgram, 1 2015 [facility] mL, Route: [place] IVP, Drug form: INJ, PRN, PRN Other -See Comment, Start date: 01/04/16 10:28:00, Duration: 30 day, Stop date: 02/03/16 10:27:00Note s: (Same as: Sublimaze) Preservative free. Potassium 10 mEq, 1 Inactive Chloride 10 MEQ tab, Route: 2014 [facility] Extended PO, Drug Release Tablet form: ERTAB, Daily, Dosing Weight 84.091, kg, Start date: 09/06/15 9:00:00, Duration: 30 day, Stop date: 10/05/15 9:00:00Notes : (Same as: K-Dur 10) "Do Not Crush" With food and full glass of water Protonix 40 mg, 1 Inactive tab, Route: 2014 [facility] PO, Drug form: ECTAB, Daily, Start date: 09/06/15 9:00:00, Duration: 30 day, Stop date: 10/05/15 9:00:00Notes : Tablet should not be chewed or crushed. (Same as: Protonix) Klor-Con 10 10 mEq, 1 Inactive tab, Route: 2014 [facility] PO, Drug form: ERTAB, Daily, Dosing Weight 84.091, kg, Start date: 09/06/15 9:00:00, Duration: 30 day, Stop date: 10/05/15 9:00:00Notes : (Same as: K-Dur 10) "Do Not Crush" With food and full glass of water Omeprazole 40 1 cap, No Longer MG / Sodium Route: PO, Active 2014 [facility] Bicarbonate Drug Form: 1100 MG Oral CAP, Dosing Capsule Weight [Zegerid 84.091, kg, Reformulated Daily, Start May 2006] date: 09/06/15 9:00:00, Duration: 30 day, Stop date: 10/05/15 9:00:00 montelukast 10 mg, 1 Inactive tab, Route: 2014 [facility] PO, Drug form: TAB, Daily, Dosing Weight 84.091, kg, Start date: 09/06/15 9:00:00, Duration: 30 day, Stop date: 10/05/15 9:00:00Notes : (Same as:Singulair ) Losartan 100 mg, 2 Inactive tab, Route: 2014 [facility] PO, Drug form: TAB, Daily, Dosing Weight 84.091, kg, Start date: 09/06/15 9:00:00, Duration: 30 day, Stop date: 10/05/15 9:00:00Notes : (Same as: Cozaar) Dexilant 60 mg, No Longer Route: PO, Active 2014 [facility] Drug form: DRC, Daily, Dosing Weight 84.091, kg, Start date: 09/06/15 9:00:00, Duration: 30 day, Stop date: 10/05/15 9:00:00 Amitriptyline 100 mg, 1 No Longer tab, Route: Active 2014 [facility] PO, Drug form: TAB, Bedtime, Dosing Weight 84.091, kg, Start date: 09/05/15 21:00:00, Duration: 30 day, Stop date: 10/04/15 21:00:00Note s: (Same as: Elavil) Alprazolam 0.25 mg, 1 No Longer tab, Route: Active 2014 [facility] PO, Drug form: TAB, Bedtime, Dosing Weight 84.091, kg, Start date: 09/05/15 21:00:00, Duration: 30 day, Stop date: 10/04/15 21:00:00Note s: With food or milk (Same as: Xanax) Protonix 40 mg, 1 No Longer tab, Route: Active 2014 [facility] PO, Drug form: ECTAB, Before Dinner, Start date: 09/05/15 20:00:00, Duration: 30 day, Stop date: 10/05/15 16:30:00Note s: Tablet should not be chewed or crushed. (Same as: Protonix) tramadol 50 mg 50 mg, 1 No Longer oral tablet tab, Route: Active 2014 [facility] PO, Drug form: TAB, Q6H, PRN Pain Score 1-3, Start date: 09/05/15 19:58:00, Duration: 30 day, Stop date: 10/05/15 19:57:00Note s: Not to exceed 400mg/day. (Same As: Ultram) Amylases 790118 1 cap, No Longer UNT / Route: PO, Active 2014 [facility] Endopeptidases Drug Form: 15206 UNT / DRC, Dosing Lipase 59618 Weight UNT Enteric 84.091, kg, Coated Capsule QID, Start [Creon 24] date: 09/05/15 17:00:00, Duration: 30 day, Stop date: 10/05/15 13:00:00Note s: Same as: Creon DRC 24 : lipase 24,000 units, protease 76,000 units, amylase 120,000 units 120 ACTUAT 2 puff, No Longer Albuterol 0.1 Route: Active 2014 [facility] MG/ACTUAT / INHALATION, Ipratropium Drug Form: [place] 0.02 AERO, Dosing MG/ACTUAT Weight Metered Dose 85.909, kg, Inhaler BID, Start [Combivent date: ] 09/05/15 17:00:00, Duration: 30 day, Stop date: 10/05/15 9:00:00Notes : Same as: Combivent Respimat benzonatate 100 mg, 1 No Longer cap, Route: Active 2014 [facility] PO, Drug form: CAP, TID, Dosing Weight 84.091, kg, Start date: 09/05/15 17:00:00, Duration: 30 day, Stop date: 10/05/15 13:00:00Note s: (Same As: Naida Pearce) "Do Not Crush" carvedilol 3.125 mg, 1 No Longer tab, Route: Active 2014 [facility] PO, Drug form: TAB, BID, Dosing Weight 84.091, kg, Start date: 09/05/15 17:00:00, Duration: 30 day, Stop date: 10/05/15 9:00:00Notes : Give with food. (Same As: Coreg) Tylenol 650 mg, 2 Inactive tab, Route: 2014 [facility] PO, Drug form: TAB, ONCE, Start date: 09/05/15 16:47:00, Stop date: 09/05/15 16:47:00Note s: Do not exceed 4 gm/day. (Same as: Tylenol) Sucralfate 1 gm, 1 tab, No Longer Route: PO, Active 2014 [facility] Drug form: TAB, QID-Before Meals, Dosing Weight 84.091, kg, Start date: 09/05/15 16:30:00, Duration: 30 day, Stop date: 10/05/15 11:30:00Note s: May interfere w/enteral feeds - Take 1 hr before or 2 hr after antacids, dairy pdt, meals & minerals - On empty stomach. (Same As: Carafate) Metoclopramide 10 mg, 2 No Longer 10 MG Oral tab, Route: Active 2014 [facility] Tablet PO, Drug form: TAB, BID, Dosing Weight 84.091, kg, PRN Nausea, Start date: 09/05/15 16:04:00, Duration: 30 day, Stop date: 10/05/15 16:03:00Note s: (Same as: Reglan) Take 30 min before meals Meclizine 12.5 mg, 1 No Longer tab, Route: Active 2014 [facility] PO, Drug form: TAB, TID, Dosing Weight 84.091, kg, PRN Dizziness, Start date: 09/05/15 16:04:00, Duration: 30 day, Stop date: 10/05/15 16:03:00Note s: (Same as: Antivert) Hydroxyzine 25 mg, 1 No Longer Hydrochloride tab, Route: Active 2014 [facility] 25 MG Oral PO, Drug Tablet form: TAB, TID, Dosing Weight 84.091, kg, PRN Itching, Start date: 09/05/15 16:03:00, Duration: 30 day, Stop date: 10/05/15 16:02:00Note s: (Same as: Atarax) Avoid alcohol. benzonatate 100 100 mg=1 Active mg oral capsule cap, PO, 2014 [facility] TID, do not crush or chew, # 30 cap, 0 Refill(s) dexlansoprazole 60 mg=1 cap, Active 60 MG Enteric PO, Daily, # 2014 [facility] Coated Capsule 30 day, 0 [Dexilant] Refill(s) Klor-Con 10 10 mEq, PO, No Longer Daily, 0 Active 2014 [facility] Refill(s) Pantoprazole Daily ORAL Active 08/24/ [place] Sodium * 2015 [facility] (Pantoprazole Medical Sodium Ec 40 Mg Center *) 40 Mg Tab, 40 Mg Oral Ondansetron 4 4 mg=1 tab, Active MG PO, BID, PRN 2014 [facility] Disintegrating Nausea and Tablet [Zofran] Vomiting, Dissolve tab under tongue, X 3 day, # 6 tab, 0 Refill(s)Spe cial Instructions : Dissolve tab under tongue Acetaminophen 1 - 2 tab, Active 300 MG / PO, Q4H, PRN 2014 [facility] Codeine Pain, X 3 Phosphate 30 MG day, # 20 Oral Tablet tab, 0 [Tylenol with Refill(s) Codeine #3] Morphine 4 mg, Route: Inactive IVP, Drug 2014 [facility] form: INJ, ONCE, Dosing Weight 85.909, kg, Priority: STAT, Start date: 07/29/15 17:45:00, Stop date: 07/29/15 17:45:00 Morphine 4 mg, 1 mL, Inactive Route: IVP, 2014 [facility] Drug form: INJ, ONCE, Dosing Weight 85.909, kg, Priority: STAT, Start date: 07/29/15 15:31:00, Stop date: 07/29/15 15:31:00Note s: (Same as:MORPhine Sulfate) Ondansetron 4 mg, 2 mL, Inactive Route: IVP, 2014 [facility] Drug form: INJ, ONCE, Dosing Weight 85.909, kg, Priority: STAT, Start date: 07/29/15 15:27:00, Stop date: 07/29/15 15:27:00Note s: (Same as: Zofran) MEDICATION WASTE Product Size: 4 mg Product Wasted: ___ mg Sodium Chloride 1,000 mL, Inactive 0.154 MEQ/ML 1000 ml/hr, 2014 [facility] Injectable Infuse Over: Solution 1 hr, Route: IV, 1,000, Drug form: INJ, ONCE, Priority: STAT, Dosing Weight 85.909 kg, Start date: 07/29/15 15:27:00, Duration: 1 doses or times, Stop date: 07/29/15 15:27:00 Saline Flush 10 mL, Inactive 0.9% Route: IVP, 2014 [facility] Drug Form: INJ, Dosing Weight 85.909, kg, PRN, PRN Line Flush, Start date: 07/29/15 15:27:00, Duration: 30 day, Stop date: 08/28/15 14:26:00Note s: (Same as: BD Posiflush) Metoclopramide 15 MINUTES Active [place] 06/14/ [facility] Hcl BEFORE MEALS [facility] [place] Creon BEFORE MEALS Active [place] 06[facility]14/ [facility] AND AT [facility] BED[facility] [place] Hydrocodone Q6H PRN For Active [place] 06/14/ [facility] 10/Apap 325 Pain 2015 [facility] [place] Meclizine Hcl THREE TIMES Active [facility] A DAY PRN 2014 [facility] For Vertigo [place] Carvedilol TWICE DAILY Active [facility] 2015 [facility] [place] Omeprazole/Sodi DAILY Active St[facility] um Bicarbonate 2015 [facility] [place] Hydrocodone Q6H PRN For Active St[facility] 10/Apap 325 Pain 2014 [facility] [place] 12 HR 600 mg=1 Active [facility] Guaifenesin 600 tab, PO, 2014 [facility] Extended Q12H, # 14 Release Tablet tab, 0 [Mucinex] Refill(s) predniSONE 20 See Special Active [facility] mg oral tablet Instructions 2014 [facility] , PO, Daily, 16 day regimen: Days 1-4 - 40 mg (2 tabs) daily Days 5-8 - 30 mg (1 1/2 tabs) daily Days 9-12 - 20 mg (1 tab) daily Day 13-16 - 10 mg (1/2 tab) daily, # 24 tab, 0 Refill(s)Spe cial Instructions : 16 day regimen: Days 1-4 - 40 mg (2 tabs) daily Days 5-8 - 30 mg (1 1/2 tabs) daily Days 9-12 - 20 mg (1 tab) daily Day 13-16 - 10 mg (1/2 tab) daily Azithromycin 500 mg=1 Active [facility] 500 MG Oral tab, PO, 2014 [facility] Tablet Daily, # 5 [Zithromax] tab, 0 Refill(s) Albuterol 0.09 1 puff, Active [facility] MG/ACTUAT INHALATION, 2014 [facility] Inhalant QID, Solution wheezing, # 1 ea, 0 Refill(s) Promethazine 5 ml, PO, Active [facility] HCl and Codeine BID, for 2014 [facility] Phosphate oral cough, # 200 syrup mL, 0 Refill(s) Azithromycin 500 mg=1 Active [place] 500 MG Oral tab, PO, 2015 [facility] Tablet Daily, # 10 tab, 0 Refill(s) predniSONE 10 10 mg=1 tab, Inactive [place] mg oral tablet PO, Daily, # 2015 [facility] 42 tab, 0 Refill(s) Meclizine 25 mg, 1 No Longer Sugar tab, Route: Active 2014 PO, Drug form: TAB, TID, Dosing Weight 87.017, kg, PRN Dizziness, Start date: 11/18/14 12:41:00, Duration: 30 day, Stop date: 12/18/14 12:40:00Note s: (Same as: Antivert) Miralax 17 gm, 1 No Longer Sugar pkt, Route: Active 2014 PO, Drug form: PWDR, Daily, Dosing Weight 87.017, kg, Start date: 11/18/14 9:00:00, Duration: 30 day, Stop date: 12/17/14 9:00:00Notes : Dissolve in 8 oz of water or juice. (Same as: Miralax) Carbamazepine 400 mg, 2 No Longer Sugar tab, Route: Active 2014 PO, Drug form: TAB, Q6AM, Dosing Weight 87.017, kg, Start date: 11/18/14 6:00:00, Duration: 30 day, Stop date: 12/17/14 6:00:00Notes : With food. (Same As: Tegretol) Amitriptyline 100 mg, 4 No Longer Sugar tab, Route: Active 2014 PO, Drug form: TAB, Bedtime, Dosing Weight 87.017, kg, Start date: 11/17/14 21:00:00, Duration: 30 day, Stop date: 12/16/14 21:00:00Note s: (Same as: Elavil) Alprazolam 0.25 mg, 1 No Longer Sugar tab, Route: Active 2014 PO, Drug form: TAB, Bedtime, Dosing Weight 87.017, kg, Start date: 11/17/14 21:00:00, Duration: 30 day, Stop date: 12/16/14 21:00:00Note s: With food or milk (Same as: Xanax) Carbamazepine 400 mg, 2 No Longer Sugar tab, Route: Active 2014 PO, Drug form: TAB, QPM, Dosing Weight 87.017, kg, Start date: 11/17/14 18:00:00, Duration: 30 day, Stop date: 12/16/14 18:00:00Note s: With food. (Same As: Tegretol) magnesium 150 ml, Inactive Sugar citrate Route: PO, 2014 Drug Form: LIQ, Dosing Weight 87.017, kg, ONCE, Start date: 11/17/14 13:30:00, Stop date: 11/17/14 13:30:00Note s: (Same as: Citrate of Magnesia) Carbamazepine 200 mg, 1 No Longer Sugar tab, Route: Active 2014 PO, Drug form: TAB, QNoon, Dosing Weight 87.017, kg, Start date: 11/17/14 12:00:00, Duration: 30 day, Stop date: 12/16/14 12:00:00Note s: With food. (Same As: Tegretol) Estrace 2 mg, 2 tab, No Longer Sugar Route: PO, Active 2014 Drug form: TAB, Daily, Start date: 11/17/14 11:36:00, Duration: 30 day, Stop date: 12/17/14 9:00:00 Sucralfate 1 gm, 10 mL, No Longer Sugar Route: PO, Active 2014 Drug form: SUSP, QID-Before Meals, Dosing Weight 87.017, kg, Start date: 11/17/14 11:30:00, Duration: 30 day, Stop date: 12/17/14 7:30:00Notes : Enteral feeds may interfere with the absorption of this medication. Shake well. Take 1 hr before or 2 hrs after antacids, dairy pdt, minerals & meals. (Same As: Carafate) Hydroxyzine 25 mg, 1 Inactive [place] Hydrochloride tab, Route: 2014 [place] 25 MG Oral PO, Drug Tablet form: TAB, TID, Dosing Weight 87.017, kg, Start date: 11/17/14 9:00:00, Duration: 30 day, Stop date: 12/16/14 17:00:00 gabapentin 400 400 mg, 1 Inactive [place] MG Oral Capsule cap, Route: 2014 PO, Drug form: CAP, BID, Dosing Weight 87.017, kg, Start date: 11/17/14 9:00:00, Duration: 30 day, Stop date: 12/16/14 17:00:00 topiramate 50 mg, Inactive Sugar Route: PO, 2014 Drug form: TAB, Q12H, Dosing Weight 87.017, kg, Start date: 11/17/14 9:00:00, Duration: 30 day, Stop date: 12/16/14 21:00:00 Dicyclomine 10 mg, 1 No Longer Sugar cap, Route: Active 2014 PO, Drug form: CAP, TID, Dosing Weight 87.017, kg, Start date: 11/17/14 9:00:00, Duration: 30 day, Stop date: 12/16/14 17:00:00Note s: (Same as: Bentyl) Prednisone 10 mg, Inactive Sugar Route: PO, 2014 Drug form: TAB, Daily, Dosing Weight 87.017, kg, Start date: 11/17/14 9:00:00, Duration: 30 day, Stop date: 12/16/14 9:00:00 carvedilol 3.125 mg, 1 No Longer Sugar tab, Route: Active 2014 PO, Drug form: TAB, BID, Dosing Weight 87.017, kg, Start date: 11/17/14 9:00:00, Duration: 30 day, Stop date: 12/16/14 17:00:00Note s: Give with food. (Same As: Coreg) Protonix 40 mg, 1 No Longer Sugar tab, Route: Active 2014 PO, Drug form: ECTAB, Daily, Dosing Weight 87.017, kg, Start date: 11/17/14 9:00:00, Duration: 30 day, Stop date: 12/16/14 9:00:00Notes : Tablet should not be chewed or crushed. (Same as: Protonix) Amylases 871945 2 cap, No Longer Sugar UNT / Route: PO, Active 2014 [facility] Drug Form: 17789 UNT / DRC, Dosing Lipase 15260 Weight UNT Enteric 87.017, kg, Coated Capsule QID, Start [Creon 24] date: 11/17/14 9:00:00, Duration: 30 day, Stop date: 12/16/14 21:00:00Note s: Same as : Lipase 64044 Units, Amylase 94915 units, Protease 25955 units montelukast 10 mg, 1 No Longer Sugar tab, Route: Active [facility] [place] PO, Drug form: TAB, Daily, Dosing Weight 87.017, kg, Start date: 11/17/14 9:00:00, Duration: 30 day, Stop date: 12/16/14 9:00:00Notes : (Same as:Singulair ) Losartan 100 mg, 2 No Longer Sugar tab, Route: Active 2014 PO, Drug form: TAB, Daily, Dosing Weight 87.017, kg, Start date: 11/17/14 9:00:00, Duration: 30 day, Stop date: 12/16/14 9:00:00Notes : (Same as: Cozaar) Lactulose 667 20 gm, 30 No Longer Sugar MG/ML Oral mL, Route: Active 2014 Solution PO, Drug Form: SYRP, Dosing Weight 87.017, kg, Daily, Start date: 11/17/14 9:00:00, Stop date: 12/15/14 10:00:00Note s: (Same as:Chronulac ) hydrOXYzine 25 mg, 1 No Longer Sugar hydrochloride tab, Route: Active 2014 PO, Drug form: TAB, TID, Dosing Weight 87.017, kg, Start date: 11/17/14 9:00:00, Duration: 30 day, Stop date: 12/16/14 17:00:00Note s: (Same as: Atarax) Avoid alcohol. 12 HR 5 ml, Route: No Longer Sugar Chlorpheniramin PO, Drug Active 2014 e Maleate 1.6 Form: MG/ML / SUSPER, Hydrocodone Dosing Bitartrate 2 Weight MG/ML Extended 87.017, kg, Release Q12H, Start Suspension date: [ssionex 11/16/14 [facility]] 21:00:00, Duration: 30 day, Stop date: 12/16/14 9:00:00Notes : (chlorphenir amine-hydroc odone 8-10mg/5ml LIQ) Non-formular y drug. (Same As: Tussionex [employer]) Lidocaine 5 mL, Route: No Longer Sugar Hydrochloride INTRADERM, Active 2014 [place] 10 MG/ML Drug Form: Injectable INJ, Dosing Solution Weight 87.017, kg, ONCALL, Start date: 11/16/14 20:00:00, Duration: 30 day, Stop date: 12/16/14 19:59:00Note s: Preservative free. (Same as: Xylocaine MPF) Carbamazepine 200 mg, 1 Inactive Sugar tab, Route: 2014 PO, Drug form: TAB, ONCE, Dosing Weight 87.017, kg, Start date: 11/16/14 18:22:00, Stop date: 11/16/14 18:22:00Note s: With food. (Same As: Tegretol) Lidocaine 5 mL, Route: No Longer Sugar Hydrochloride INTRADERM, Active 2014 [place] 10 MG/ML Drug Form: Injectable INJ, Dosing Solution Weight 87.017, kg, ONCALL, Start date: 11/16/14 18:00:00, Duration: 30 day, Stop date: 12/16/14 17:59:00Note s: Preservative free. (Same as: Xylocaine MPF) Estradiol 2 mg, Route: No Longer Sugar Transdermal, Active 2014 ONCE, Dosing Weight 87.017, kg, Start date: 11/16/14 17:57:00, Stop date: 11/16/14 17:57:00 Carbamazepine 200 mg, 1 Inactive Sugar tab, Route: 2014 PO, Drug form: TAB, ONCE, Dosing Weight 87.017, kg, Start date: 11/16/14 17:53:00, Stop date: 11/16/14 17:53:00Note s: With food. (Same As: Tegretol) gabapentin 400 400 mg, 1 No Longer Sugar MG Oral Capsule cap, Route: Active 2014 PO, Drug form: CAP, BID, Dosing Weight 87.017, kg, Priority: NOW, Start date: 11/16/14 17:52:00, Stop date: 12/16/14 18:00:00Note s: (Same as: Neurontin) Topamax 50 mg, 2 No Longer Sugar tab, Route: Active 2015 [place] PO, Drug form: TAB, BID, Dosing Weight 87.017, kg, Priority: NOW, Start date: 11/16/14 17:51:00, Stop date: 12/16/14 18:00:00Note s: (Same As: Topamax) "Do Not Crush" Solu-Medrol 60 mg, 0.96 No Longer Sugar mL, Route: Active 2014 IVP, Drug form: INJ, Q6H, Dosing Weight 87.017, kg, Start date: 11/16/14 12:00:00, Stop date: 12/16/14 6:00:00Notes : (Same as:Solu-MEDR OL, A-Methapred) 120 ACTUAT 2 puff, Active Sugar Albuterol 0.1 INHALATION, 2014 [place] MG/ACTUAT / QID, 0 Ipratropium Refill(s) [place] 0.02 MG/ACTUAT Metered Dose Inhaler [Combivent 20/100] carBAMazepine 400 mg=2 Active Sugar 200 mg oral tab, PO, 2014 [place] tablet QPM, pt takes at 6 pm, 0 Refill(s)Spe cial Instructions : pt takes at 6 pm topiramate 50 50 mg=1 tab, Active Sugar mg oral tablet PO, Q12H, pt 2014 takes at 6 am and 6 pm, # 60 tab, 0 Refill(s)Spe cial Instructions : pt takes at 6 am and 6 pm Omeprazole 40 1 cap, PO, Active Sugar MG / Sodium Daily, # 30 2014 [place] Bicarbonate cap, 0 1100 MG Oral Refill(s) Capsule [Zegerid Reformulated May 2006] levofloxacin 750 mg=1 No Longer Sugar 750 mg oral tab, PO, Active 2014 [place] tablet Daily, # 7 tab, 0 Refill(s) gabapentin 400 400 mg=1 Active Sugar MG Oral Capsule cap, PO, 2014 [place] BID, 0 Refill(s) predniSONE 10 10 mg=1 tab, No Longer Sugar mg oral tablet PO, Daily, Active 2014 [place] with food, 0 Refill(s)Spe cial Instructions : with food Alprazolam 0.25 mg, PO, Active Sugar Bedtime, 0 2014 Refill(s) Budesonide 0.25 1 mg, 4 ml, No Longer Sugar MG/ML Inhalant Route: NEB, Active 2014 Solution Drug form: [Pulmicort] SOLN, BID, Dosing Weight 87.017, kg, Start date: 11/16/14 9:00:00, Duration: 30 day, Stop date: 12/15/14 17:00:00Note s: (Same As: Pulmicort) cefepime 1 gm, Route: No Longer Sugar IVPB, Active 2014 [id number], Dosing Weight 87.017, kg, (CrCl 30 - 49 ml/min), Start date: 11/16/14 8:00:00, Duration: 30 day, Stop date: 12/15/14 20:00:00Note s: (Same As: Maxipime) Albuterol 0.833 3 ml, Route: No Longer Sugar MG/ML / NEB, Drug Active 2014 Ipratropium Form: SOLN, [place] 0.167 Dosing MG/ML Inhalant Weight Solution 87.017, kg, [id number], Start date: 11/16/14 2:00:00, Duration: 30 day, Stop date: 12/15/14 20:00:00Note s: (Same as: Duoneb) Azithromycin 500 mg, No Longer Sugar Route: IVPB, Active 2014 [id number], Dosing Weight 87.017, kg, Start date: 11/16/14 2:00:00, Duration: 30 day, Stop date: 12/15/14 2:00:00Notes : (Same As: Zithromax IV) Solu-Medrol 125 mg, 2 Inactive Sugar mL, Route: 2014 IVP, Drug form: INJ, Q6H, Dosing Weight 87.017, kg, Start date: 11/16/14 1:30:00, Duration: 30 day, Stop date: 12/16/14 0:00:00Notes : (Same as:Solu-MEDR OL, A-Methapred) NS 1,000 mL 1,000 mL, No Longer Sugar Rate: 75 Active 2014 [facility] ml/hr, Infuse over: 13.3 hr, Route: IV, Dosing Weight 87.017 kg, Total Volume: 1,000, Start date: 11/16/14 1:23:00, Duration: 30 day, Stop date: 12/16/14 1:22:00 Ativan 1 mg, 0.5 No Longer Sugar mL, Route: Active 2014 [facility] IVP, Drug form: INJ, Q8H, Dosing Weight 87.017, kg, PRN Anxiety, Start date: 11/16/14 1:21:00, Duration: 30 day, Stop date: 12/16/14 1:20:00Notes : (Same as: Ativan) Albuterol 0.833 3 ml, Route: No Longer Sugar MG/ML / NEB, Drug Active 2014 I[place]at[place]ium Form: SOLN, [place] 0.167 Dosing MG/ML Inhalant Weight Solution 87.017, kg, Q6H, PRN as needed for shortness of breath or wheezing, Start date: 11/16/14 1:21:00, Duration: 30 day, Stop date: 12/16/14 1:20:00Notes : (Same as: Duoneb) Tylenol 650 mg, Inactive Sugar Route: PO, 2014 Drug form: TAB, Q4H, Dosing Weight 87.017, kg, PRN Pain, Start date: 11/16/14 1:21:00, Duration: 30 day, Stop date: 12/16/14 1:20:00 Insulin, 1 unit, 0.01 No Longer Sugar Aspart, Human mL, Route: Active 2014 [facility] SUB-Q, Drug form: SOLN, TID-Before Meals, Dosing Weight 87.017, kg, PRN Blood Glucose Results, Start date: 11/16/14 1:21:00, Duration: 30 day, Stop date: 12/16/14 1:20:00Notes : Roll in palms of hands gently; Do not shake vigorously. (Same as: NovoLOG) "single patient use only" Stable for 28 days at room temperature. Expires in days from __Date Glucagon 1 mg, Route: No Longer Sugar IM, Drug Active 2014 form: PDR/INJ, PRN, Dosing Weight 87.017, kg, PRN Blood Glucose Results, Start date: 11/16/14 1:21:00, Duration: 30 day, Stop date: 12/16/14 1:20:00 Dextrose 50% 12.5 gm, 25 No Longer Sugar Syringe mL, Route: Active 2014 IVP, Drug Form: INJ, Dosing Weight 87.017, kg, PRN, PRN Blood Glucose Results, Start date: 11/16/14 1:21:00, Duration: 30 day, Stop date: 12/16/14 1:20:00 Morphine 1 mg, 0.5 No Longer Sugar mL, Route: Active 2014 IVP, Drug form: INJ, Q3H, Dosing Weight 87.017, kg, PRN Chest Pain, Start date: 11/16/14 1:20:00, Duration: 30 day, Stop date: 12/16/14 1:19:00Notes : (Same as:MORPhine Sulfate) Restoril 15 mg, 1 No Longer Sugar cap, Route: Active 2014 PO, Drug form: CAP, Bedtime, Dosing Weight 87.017, kg, PRN Sleep, Start date: 11/16/14 1:20:00, Duration: 30 day, Stop date: 12/16/14 1:19:00Notes : (Same As: Restoril) Zofran 4 mg, 2 mL, No Longer Sugar Route: IV, Active 2014 Drug form: INJ, Q4H, Dosing Weight 87.017, kg, PRN Nausea, Start date: 11/16/14 1:20:00, Duration: 30 day, Stop date: 12/16/14 1:19:00Notes : (Same as: Zofran) Benadryl 25 mg, Inactive Sugar Route: IVP, 2014 ONCE, Dosing Weight 81.818, kg, Priority: STAT, Start date: 11/15/14 22:26:00, Stop date: 11/15/14 22:26:00 Zofran 4 mg, 2 mL, Inactive Sugar Route: IVP, 2014 [facility] Drug form: INJ, ONCE, Dosing Weight 81.818, kg, Priority: STAT, Start date: 11/15/14 22:19:00, Stop date: 11/15/14 22:19:00Note s: (Same as: Zofran) Acetaminophen 1 tab, Inactive Sugar 325 MG / Route: PO, 2014 Hydrocodone Drug Form: Bitartrate 5 MG TAB, Dosing Oral Tablet Weight [[place] 5/325] 81.818, kg, ONCE, STAT, Start date: 11/15/14 20:48:00, Stop date: 11/15/14 20:48:00 Saline Flush 10 ml, No Longer Sugar 0.9% Route: IVP, Active 2014 Drug Form: INJ, Dosing Weight 81.818, kg, PRN, PRN Line Flush, Start date: 11/15/14 20:28:00, Duration: 30 day, Stop date: 12/15/14 20:27:00Note s: (Same as: BD Posiflush) Prednisone 60 mg, 3 Inactive Sugar tab, Route: 2014 PO, Drug form: TAB, ONCE, Dosing Weight 81.818, kg, Priority: STAT, Start date: 11/15/14 19:47:00, Stop date: 11/15/14 19:47:00Note s: Take with food. Albuterol 0.833 3 mL, Route: Inactive Sugar MG/ML / NEB, Drug 2014 Ipratropium Form: SOLN, [place] 0.167 Dosing MG/ML Inhalant Weight Solution 81.818, kg, ONCE, STAT, Start date: 11/15/14 19:46:00, Stop date: 11/15/14 19:46:00Note s: (Same as: Duoneb) Levofloxacin 750 mg, 150 Inactive Sugar mL, Route: 2014 IVPB, Drug form: SOLN, ONCE, Dosing Weight 81.818, kg, Priority: STAT, Start date: 11/15/14 19:46:00, Stop date: 11/15/14 19:46:00Note s: (Same as:Levaquin) Saline Flush 10 mL, Inactive Sugar 0.9% Route: IVP, 2014 Drug Form: INJ, Dosing Weight 81.818, kg, PRN, PRN Line Flush, Start date: 11/15/14 19:46:00, Duration: 30 day, Stop date: 12/15/14 19:45:00Note s: (Same as: BD Posiflush) ZEGERID ZEGERID Inactive Sugar 40MG-1100MG CAP 40MG-1100MG 2014 CAP, 1 cap, Drug form: MISC, Route: PO, Daily, 10/30/14 17:00:00, Duration: 30 day, Stop date: 11/29/14 9:00:00 Carbamazepine 200 mg, 1 Inactive Sugar tab, Route: 2014 PO, Drug form: TAB, QNoon, Dosing Weight 89.545, kg, Start date: 10/30/14 12:00:00, Duration: 30 day, Stop date: 11/28/14 12:00:00Note s: With food. (Same As: Tegretol) Omeprazole 40 1 cap, Inactive Sugar MG / Sodium Route: PO, 2014 Bicarbonate Drug Form: 1100 MG Oral CAP, Dosing Capsule Weight [Zegerid 89.545, kg, Reformulated Daily, Start May 2006] date: 10/30/14 9:00:00, Duration: 30 day, Stop date: 11/28/14 9:00:00 Losartan 100 mg, 2 Inactive Sugar tab, Route: 2014 PO, Drug form: TAB, QAM, Dosing Weight 89.545, kg, Start date: 10/30/14 9:00:00, Duration: 30 day, Stop date: 11/28/14 9:00:00Notes : (Same as: Cozaar) Lactulose 667 20 gm, 30 Inactive Sugar MG/ML Oral mL, Route: 2014 Solution PO, Drug Form: SYRP, Dosing Weight 89.545, kg, Daily, Start date: 10/30/14 9:00:00, Duration: 30 day, Stop date: 11/28/14 9:00:00Notes : (Same as:Chronulac ) carvedilol 3.125 mg, 1 Inactive Sugar tab, Route: 2014 [facility] PO, Drug form: TAB, Daily, Dosing Weight 89.545, kg, Start date: 10/30/14 9:00:00, Duration: 30 day, Stop date: 11/28/14 9:00:00Notes : Give with food. (Same As: Coreg) Carbamazepine 400 mg, 2 Inactive Sugar tab, Route: 2014 PO, Drug form: TAB, QAM, Dosing Weight 89.545, kg, Start date: 10/30/14 9:00:00, Duration: 30 day, Stop date: 11/28/14 9:00:00Notes : With food. (Same As: Tegretol) Flumazenil 0.1 mg, 1 Inactive Sugar mL, Route: 2014 [facility] IVP, Drug form: INJ, Q5Min, Dosing Weight 89.545, kg, PRN Other -See Comment, Start date: 10/30/14 8:23:00, Duration: 30 day, Stop date: 11/29/14 8:22:00Notes : (Same as: Romazicon) Naloxone 0.1 mg, 0.25 Inactive Sugar mL, Route: 2014 [facility] IVP, Drug form: INJ, Q2MIN, Dosing Weight 89.545, kg, PRN Narcotic Reversal, Start date: 10/30/14 8:23:00, Duration: 4 doses or times, Stop date: Limited # of timesNotes: Same as Narcan Fleet Enema 133 mL, Inactive Sugar Route: AL, 2014 [facility] Drug Form: GREG, Dosing Weight 89.545, kg, ONCE, Start date: 10/30/14 3:45:00, Stop date: 10/30/14 3:45:00 Amitriptyline 100 mg, 4 No Longer Sugar tab, Route: Active 2014 PO, Drug form: TAB, Bedtime, Dosing Weight 89.545, kg, Start date: 10/29/14 21:00:00, Duration: 30 day, Stop date: 11/27/14 21:00:00Note s: (Same as: Elavil) topiramate 50 mg, 2 No Longer Sugar tab, Route: Active 2014 [place] PO, Drug form: TAB, BID, Dosing Weight 89.545, kg, Start date: 10/29/14 18:00:00, Duration: 30 day, Stop date: 11/28/14 6:00:00Notes : (Same As: Topamax) "Do Not Crush" gabapentin 400 mg, 1 No Longer Sugar cap, Route: Active 2014 [place] PO, Drug form: CAP, TID, Dosing Weight 89.545, kg, Start date: 10/29/14 18:00:00, Duration: 30 day, Stop date: 11/28/14 12:00:00Note s: (Same as: Neurontin) Albuterol 0.83 2.5 mg, 3.01 No Longer Sugar MG/ML Inhalant mL, Route: Active 2014 Solution NEB, Drug form: SOLN, Q6H, Dosing Weight 89.545, kg, Start date: 10/29/14 18:00:00, Duration: 30 day, Stop date: 11/28/14 12:00:00Note s: SEE RT DOCUMENTATIO N (Same as: Proventil) Sucralfate 1 gm, 1 tab, No Longer Sugar Route: PO, Active 2014 Drug form: TAB, QID, Dosing Weight 89.545, kg, Start date: 10/29/14 17:00:00, Duration: 30 day, Stop date: 11/28/14 13:00:00Note s: May interfere w/enteral feeds - Take 1 hr before or 2 hr after antacids, dairy pdt, meals & minerals - On empty stomach. (Same As: Carafate) Amylases 144195 1 cap, No Longer Sugar UNT / Route: PO, Active 2014 Endopeptidases Drug Form: 62261 UNT / DRC, Dosing Lipase 04425 Weight UNT Enteric 89.545, kg, Coated Capsule TID-Meals, [Creon 24] Start date: 10/29/14 17:00:00, Duration: 30 day, Stop date: 11/28/14 12:00:00Note s: Same as : Lipase 40362 Units, Amylase 46316 units, Protease 05102 units montelukast 10 mg, 1 No Longer Sugar tab, Route: Active 2014 [place] PO, Drug form: TAB, QPM, Dosing Weight 89.545, kg, Start date: 10/29/14 17:00:00, Duration: 30 day, Stop date: 11/27/14 17:00:00Note s: (Same as:Singulair ) Dicyclomine 10 mg, 1 No Longer Sugar cap, Route: Active 2014 [place] PO, Drug form: CAP, TID, Dosing Weight 89.545, kg, Start date: 10/29/14 17:00:00, Duration: 30 day, Stop date: 11/28/14 13:00:00Note s: (Same as: Bentyl) Carbamazepine 400 mg, 2 No Longer Sugar tab, Route: Active 2014 [place] PO, Drug form: TAB, QPM, Dosing Weight 89.545, kg, Start date: 10/29/14 17:00:00, Duration: 30 day, Stop date: 11/27/14 17:00:00Note s: With food. (Same As: Tegretol) Metoclopramide 10 mg, 1 No Longer Sugar 10 MG Oral tab, Route: Active 2014 [place] Tablet PO, Drug form: TAB, BID, Dosing Weight 89.545, kg, PRN Nausea, Start date: 10/29/14 14:54:00, Stop date: 11/28/14 14:53:00Note s: (Same as: Reglan) Take 30 min before meals Meclizine 12.5 mg, 1 No Longer Sugar tab, Route: Active 2014 [place] PO, Drug form: TAB, QID, Dosing Weight 89.545, kg, PRN as needed for dizziness, Start date: 10/29/14 14:54:00, Stop date: 11/28/14 14:53:00Note s: (Same as: Antivert) Hydroxyzine 25 mg, 1 No Longer Sugar Hydrochloride tab, Route: Active 2014 [place] 25 MG Oral PO, Drug Tablet form: TAB, TID, Dosing Weight 89.545, kg, PRN as needed for itching, Start date: 10/29/14 14:53:00, Stop date: 11/28/14 14:52:00Note s: (Same as: Atarax) Avoid alcohol. Alprazolam 0.25 mg, 1 No Longer Sugar tab, Route: Active 2014 PO, Drug form: TAB, Bedtime, Dosing Weight 89.545, kg, PRN as needed for anxiety, Start date: 10/29/14 14:53:00, Stop date: 11/28/14 14:52:00Note s: With food or milk (Same as: Xanax) Golytely 4,000 ml, Inactive Sugar Route: PO, 2014 Drug Form: PDR/REC, Dosing Weight 89.545, kg, ONCE, Start date: 10/29/14 14:25:00, Duration: 1 doses or times, Stop date: 10/29/14 14:25:00Note s: (polyethylen e glycol electrolyte solution 4 Liter bottle) (Same as: Golytely, Colyte) Omeprazole 40 1 cap, PO, Active Sugar MG / Sodium Daily, # 30 2014 [place] Bicarbonate cap, 0 1100 MG Oral Refill(s) Capsule [Zegerid Reformulated May 2006] promethazine 12.5 mg=1 Active Sugar 12.5 mg oral tab, PO, 2015 [place] tablet TID, Nausea & Vomiting, # 60 tab, 0 Refill(s) Potassium 10 mEq=1 Active Sugar Chloride 10 MEQ tab, PO, 2014 [place] Extended Daily, # 10 Release Tablet tab, 0 Refill(s) sucralfate 1 g 1 gm=1 tab, Active Sugar oral tablet PO, QID, # 2014 [place] 120 tab, 0 Refill(s) dicyclomine 10 10 mg=1 cap, Active Sugar mg oral capsule PO, TID, # 2014 [place] 40 cap, 0 Refill(s) amitriptyline 100 mg=1 Active Sugar 100 mg oral tab, PO, 2015 [place] tablet Bedtime, # 30 tab, 0 Refill(s) pantoprazole 40 40 mg=1 tab, Active Sugar MG Enteric PO, Daily, # 2015 [place] Coated Tablet 30 tab, 0 [Protonix] Refill(s) Acetaminophen 1 tab, PO, Active Sugar 325 MG / Q6H, for 2014 [place] Hydrocodone pain, # 24 Bitartrate 10 tab, 0 MG Oral Tablet Refill(s) [[place] 10/325] carBAMazepine 400 mg=2 Active Sugar 200 mg oral tab, PO, 2014 [place] tablet QPM, # 120 tab, 0 Refill(s) Ondansetron 8 mg, 4 mL, No Longer Sugar Route: IV, Active 2014 [facility] Drug form: INJ, Q8H, Dosing Weight 89.545, kg, Start date: 10/29/14 8:00:00, Duration: 30 day, Stop date: 11/28/14 0:00:00Notes : (Same as: Zofran) gabapentin 400 mg, TID, Active Sugar 0 Refill(s) 2014 Carbamazepine 400 mg, PO, Active Sugar QAM, 0 2014 Refill(s) topiramate 50 mg, BID, Active Sugar 0 Refill(s) 2014 [place] Maalox Advanced 20 mL, No Longer Sugar Regular Route: PO, Active 2014 [place] Strength SUSP Drug Form: SUSP, Dosing Weight 89.091, kg, QID, PRN Heartburn, NOW, Start date: 10/28/14 23:54:00, Duration: 30 day, Stop date: 11/27/14 23:53:00Note s: (aluminum hydroxide-ma gnesium hyd-simethic one [phone] /5ml 30 ml ud CONSUELO) Sucralfate 100 1 gm, 10 mL, No Longer Sugar MG/ML Oral Route: PO, Active 2014 [facility] Suspension Drug form: SUSP, QID, Dosing Weight 89.091, kg, Priority: NOW, Start date: 10/28/14 23:53:00, Duration: 30 day, Stop date: 11/27/14 21:00:00Note s: Enteral feeds may interfere with the absorption of this medication. Shake well. Take 1 hr before or 2 hrs after antacids, dairy pdt, minerals & meals. (Same As: Carafate) Protonix 40 mg, No Longer Sugar Route: IVP, Active 2014 [facility] Drug form: INJ, Before Dinner, Dosing Weight 89.091, kg, Priority: NOW, Start date: 10/28/14 23:52:00, Duration: 30 day, Stop date: 11/27/14 16:30:00Note s: For IV push reconstitute with 10 ml 0.9% sodium chloride and push over 2 minutes. (Same as: Protonix) Morphine 2 mg, 1 mL, No Longer Sugar Route: IVP, Active 2014 [facility] Drug form: INJ, Q3H, Dosing Weight 89.091, kg, PRN Pain Score 4-6, Start date: 10/28/14 23:49:00, Duration: 30 day, Stop date: 11/27/14 23:48:00Note s: (Same as:MORPhine Sulfate) Ondansetron 4 mg, 2 mL, No Longer Sugar Route: IVP, 2014 [facility] Drug form: INJ, Q4H, Dosing Weight 89.091, kg, PRN Nausea & Vomiting, Start date: 10/28/14 23:49:00, Duration: 30 day, Stop date: 11/27/14 23:48:00Note s: (Same as: Zofran) Phenergan 25 mg, 1 mL, No Longer Sugar Route: IM, Active 2014 [facility] Drug form: INJ, Q6H, Dosing Weight 89.091, kg, PRN as needed for nausea/vomit ing, Start date: 10/28/14 23:15:00, Duration: 30 day, Stop date: 11/27/14 23:14:00Note s: Do not give IV push. (Same as: Phenergan) Saline Flush 10 ml, No Longer Sugar 0.9% Route: IVP, Active 2014 [facility] Drug Form: INJ, Dosing Weight 89.091, kg, PRN, PRN Line Flush, Start date: 10/28/14 23:15:00, Duration: 30 day, Stop date: 11/27/14 23:14:00Note s: (Same as: BD Posiflush) Sodium Chloride 1,000 mL, No Longer Sugar 0.154 MEQ/ML Rate: 125 Active 2014 [place] Injectable ml/hr, Solution Infuse over: 8 hr, Route: IV, Dosing Weight 89.091 kg, Total Volume: 1,000, Start date: 10/28/14 23:15:00, Duration: 30 day, Stop date: 11/27/14 23:14:00 Morphine 2 mg, 1 mL, No Longer Sugar Route: IVP, Active 2014 [facility] Drug form: INJ, Q3H, Dosing Weight 89.091, kg, PRN Pain Score 4-6, Start date: 10/28/14 23:15:00, Duration: 30 day, Stop date: 11/27/14 23:14:00Note s: (Same as:MORPhine Sulfate) Ondansetron 4 mg, 2 mL, No Longer Sugar Route: IVP, Active 2014 [facility] Drug form: INJ, Q8H, Dosing Weight 89.091, kg, PRN Nausea & Vomiting, Start date: 10/28/14 23:15:00, Duration: 30 day, Stop date: 11/27/14 23:14:00Note s: (Same as: Zofran) Morphine 2 mg, Route: Inactive Sugar IVP, Drug 2014 [place] form: INJ, ONCE, Dosing Weight 89.091, kg, Priority: STAT, Start date: 10/28/14 22:06:00, Stop date: 10/28/14 22:06:00 Reglan 10 mg, Inactive Sugar Route: IVP, 2014 [facility] Drug form: INJ, ONCE, Dosing Weight 89.091, kg, Priority: STAT, Start date: 10/28/14 22:05:00, Stop date: 10/28/14 22:05:00 Phenergan 25 mg, Inactive Sugar Route: IM, 2014 ONCE, Dosing Weight 89.091, kg, Priority: STAT, Start date: 10/28/14 20:16:00, Stop date: 10/28/14 20:16:00 Omnipaque 300 100 mL, Inactive Sugar Route: IV, 2014 [facility] Drug Form: SOLN, ONCE, Start date: 10/28/14 19:53:00, Stop date: 10/28/14 19:53:00Note s: (Same as:Omnipaque 300). Morphine 4 mg, 2 mL, Inactive Sugar Route: IVP, 2014 [facility] Drug form: INJ, ONCE, Dosing Weight 89.091, kg, Priority: STAT, Start date: 10/28/14 19:46:00, Stop date: 10/28/14 19:46:00Note s: (Same as:MORPhine Sulfate) Ondansetron 4 mg, Route: Inactive Sugar IVP, ONCE, 2014 [facility] Dosing Weight 89.091, kg, Priority: STAT, Start date: 10/28/14 18:09:00, Stop date: 10/28/14 18:09:00 Morphine 4 mg, Route: Inactive Sugar IVP, ONCE, 2014 [facility] Dosing Weight 89.091, kg, Priority: STAT, Start date: 10/28/14 18:09:00, Stop date: 10/28/14 18:09:00 Sodium Chloride 1,000 mL, Inactive Sugar 0.154 MEQ/ML Infuse Over: 2014 [facility] Injectable 1 hr, Route: Solution IV, ONCE, Priority: STAT, Dosing Weight 89.091 kg, Start date: 10/28/14 18:09:00, Duration: 1 doses or times, Stop date: 10/28/14 18:09:00 Saline Flush 10 mL, No Longer Sugar 0.9% Route: IVP, Active 2014 [facility] Drug Form: INJ, Dosing Weight 89.091, kg, PRN, PRN Line Flush, Start date: 10/28/14 18:09:00, Duration: 30 day, Stop date: 11/27/14 18:08:00Note s: (Same as: BD Posiflush) Losartan Daily ORAL Active [place] Potassium 2014 (Cozaar *) 100 Medical Mg Tab, 100 Mg Center Oral Potassium Daily ORAL Active [place] Chloride * 2014 (Klor-Con *) 10 Medical Meq Tab, 10 Meq Center Oral Dexlansoprazole Daily ORAL Active rda * (Dexilant 60 2015 [facility] *) 60 Mg Medical Cap, 60 Mg Oral [facility] Methocarbamol ORAL Active [place] (Methocarbamol 2014 [facility] 500 Mg) 500 Mg Medical Tab, Oral [facility] Quinine Sulfate Once Daily ORAL Active [place] (Quinine At Bedtime 2014 [facility] Sulfate 324 Mg Medical *) 324 Mg Cap, Center 324 Mg Oral Sucralfate 1 Four Times ORAL Active rda Gm/10 Ml [place], Daily 2014 [facility] Ciprofloxacin 500 mg=1 Active 500 MG Oral tab, PO, 2013 [facility] Tablet [Cipro] Q12H, # 14 tab, 0 Refill(s) Creon 24,000 1 cap, No Longer units oral Route: PO, Active 2013 [facility] delayed release Drug Form: capsule DRC, Dosing Weight 72.72, kg, QID-With Food, Start date: 06/19/14 21:00:00, Duration: 30 day, Stop date: 07/19/14 17:00:00Note s: Same as: Creon DRC 24 : Amylase 120,000 units - Lipase 24,000 units - Protease 76,000 units lactulose 20 gm, 30 No Longer mL, Route: Active 2013 [facility] PO, Drug form: SYRP, BID, Start date: 06/19/14 19:21:00, Duration: 30 day, Stop date: 07/19/14 17:00:00Note s: (Same as:Chronulac ) Creon 24,000 1 cap, Inactive units oral Route: PO, 2013 [facility] delayed release Drug Form: capsule DRC, Dosing Weight 72.72, kg, ONCE, Start date: 06/19/14 14:54:00, Stop date: 06/19/14 14:54:00Note s: Same as: Creon DRC 24 : Amylase 120,000 units - Lipase 24,000 units - Protease 76,000 units Phenergan 25 mg, 1 mL, No Longer Route: IM, Active 2013 [facility] Drug form: INJ, Q4H, PRN Nausea, Start date: 06/19/14 14:38:00, Duration: 30 day, Stop date: 07/19/14 14:37:00Note s: Do not give IV push. (Same as: Phenergan) Miralax 17 gm, 1 No Longer pkt, Route: Active 2013 [facility] PO, Drug form: PWDR, Daily, Dosing Weight 72.72, kg, Start date: 06/19/14 9:00:00, Duration: 30 day, Stop date: 07/18/14 9:00:00Notes : Dissolve in 8 oz of water or juice. (Same as: Miralax) Docusate Sodium 100 mg, 1 No Longer 100 MG Oral cap, Route: Active 2013 [facility] Capsule PO, Drug [Colace] form: CAP, BID, Dosing Weight 72.72, kg, Start date: 06/19/14 9:00:00, Duration: 30 day, Stop date: 07/18/14 17:00:00Note s: (Same as: Colace) (Do Not Crush) Milk of 30 mL, No Longer Magnesia Route: PO, Active 2013 [facility] Drug Form: SUSP, Daily, Start date: 06/19/14 9:00:00, Duration: 30 day, Stop date: 07/18/14 9:00:00Notes : (Same as: Milk of Magnesia, MOM) Metronidazole 500 mg=1 No Longer 500 MG Oral tab, PO, Active 2013 [facility] Tablet [Flagyl] Q8H, # 21 tab, 0 Refill(s) Ciprofloxacin 500 mg=1 No Longer 500 MG Oral tab, PO, Active 2013 [facility] Tablet [Cipro] Q12H, # 14 tab, 0 Refill(s) Promethazine =1 supp, AL, Active Hydrochloride Q6H, Nausea 2013 25 MG Rectal & Vomiting, Suppository # 20 supp, 0 [Phenergan] Refill(s) POLYETHYLENE 17 gm, PO, Active GLYCOL 3350 142 Daily, # 255 2013 MG/ML Oral gm, 0 Solution Refill(s) [Miralax] Docusate Sodium 100 mg=1 Active 100 MG Oral cap, PO, 2013 Capsule BID, # 60 [Colace] cap, 0 Refill(s) dicyclomine 20 20 mg=1 tab, Active mg oral tablet PO, QID, # 2013 120 tab, 0 Refill(s) Flagyl 500 mg, 100 No Longer mL, Route: Active 2013 [facility] IVPB, Drug form: INJ, ABXQ8H, Dosing Weight 72.72, kg, Start date: 06/18/14 21:00:00, Duration: 30 day, Stop date: 07/18/14 13:00:00Note s: (Same as: Flagyl) Avoid alcohol. Cipro 400 mg, 200 No Longer mL, Route: Active 2013 [facility] IVPB, Drug form: INJ, [id number], Dosing Weight 72.72, kg, Start date: 06/18/14 21:00:00, Duration: 30 day, Stop date: 07/18/14 9:00:00Notes : Do not refrigerate Lactulose 667 20 gm=30 mL, Active MG/ML Oral PO, Daily, 2013 [facility] Solution Take 2 tablespoons by mouth once a day, 0 Refill(s)Spe cial Instructions : Take 2 tablespoons by mouth once a day Phenergan 25 mg, 1 mL, No Longer Route: IM, Active 2013 [facility] Drug form: INJ, Q6H, PRN Nausea & Vomiting, Start date: 06/18/14 17:43:00, Duration: 30 day, Stop date: 07/18/14 17:42:00Note s: Do not give IV push. (Same as: Phenergan) Dulcolax 10 mg, 1 No Longer Laxative supp, Route: Active 2013 [facility] AL, Drug form: SUPP, PRN, PRN Constipation , Start date: 06/18/14 17:42:00, Duration: 30 day, Stop date: 07/18/14 17:41:00Note s: (Same As: Dulcolax, Bisco-Lax) montelukast 10 mg, 1 No Longer tab, Route: Active 2013 [facility] PO, Drug form: TAB, QPM, Dosing Weight 72.72, kg, Start date: 06/17/14 17:00:00, Duration: 30 day, Stop date: 07/16/14 17:00:00Note s: (Same as:Singulair ) Combivent Combivent No Longer 20/100 MDI 20/100 MDI, Active 2013 [facility] 2 puff, Drug form: MISC, Route: INHALATION, QID, PRN Wheezing, 06/17/14 12:28:00, Duration: 30 day, Stop date: 07/17/14 12:27:00 Losartan 100 mg, 2 No Longer tab, Route: Active 2013 [facility] PO, Drug form: TAB, QAM, Dosing Weight 72.72, kg, Start date: 06/17/14 9:00:00, Duration: 30 day, Stop date: 07/16/14 9:00:00Notes : (Same as: Pete) carvedilol 3.125 mg, 1 No Longer tab, Route: Active 2013 [facility] PO, Drug form: TAB, Q12H, Dosing Weight 72.72, kg, Start date: 06/17/14 9:00:00, Duration: 30 day, Stop date: 07/16/14 21:00:00Note s: Give with food. (Same As: Coreg) sucralfate 1 g 1 gm=1 tab, Active oral tablet PO, 2013 [facility] QID-Before Meals, # 120 tab, 0 Refill(s) Acetaminophen 1 tab, PO, Active 325 MG / Q6H, as 2013 [facility] Hydrocodone needed for Bitartrate 10 pain, # 30 MG Oral Tablet tab, 0 [Bayard 10/325] Refill(s) pantoprazole 40 40 mg=1 tab, Active MG Enteric PO, Daily, # 2013 [facility] Coated Tablet 30 tab, 0 [Protonix] Refill(s) Amylases 453226 1 cap, No Longer UNT / Route: PO, Active 2013 [facility] Endopeptidases Drug Form: 51745 UNT / DRC, Dosing Lipase 41126 Weight UNT Enteric 72.72, kg, Coated Capsule TID-Meals, [Creon 24] Start date: 06/17/14 8:00:00, Duration: 30 day, Stop date: 07/16/14 17:00:00Note s: Same as: Creon DRC 24 : Amylase 120,000 units - Lipase 24,000 units - Protease 76,000 units gabapentin 400 400 mg, 1 No Longer MG Oral Capsule cap, Route: Active 2013 [facility] PO, Drug form: CAP, BID, Dosing Weight 72.72, kg, Start date: 06/17/14 6:00:00, Duration: 30 day, Stop date: 07/16/14 18:00:00Note s: (Same as: Neurontin) topiramate 50 mg, 2 No Longer tab, Route: Active 2013 [facility] PO, Drug form: TAB, BID, Dosing Weight 72.72, kg, Start date: 06/17/14 6:00:00, Duration: 30 day, Stop date: 07/16/14 18:00:00Note s: (Same As: Topamax) "Do Not Crush" Carbamazepine 400 mg, 2 No Longer tab, Route: Active 2013 [facility] PO, Drug form: TAB, BID, Dosing Weight 72.72, kg, Start date: 06/17/14 6:00:00, Duration: 30 day, Stop date: 07/16/14 18:00:00Note s: With food. (Same As: Tegretol) Amitriptyline 10 mg, 1 No Longer tab, Route: Active 2013 [facility] PO, Drug form: TAB, Bedtime, Dosing Weight 72.72, kg, Start date: 06/17/14 0:15:00, Duration: 30 day, Stop date: 07/16/14 21:00:00Note s: (Same as: Elavil) Methocarbamol 750 mg, 1 No Longer tab, Route: Active 2013 [facility] PO, Drug form: TAB, Q4H, Dosing Weight 72.72, kg, Start date: 06/17/14 0:00:00, Duration: 30 day, Stop date: 07/16/14 20:00:00Note s: (Same as:Robaxin) Estradiol Patch 2 mg, Route: No Longer TOP, Dosing Active 2013 [facility] Weight 72.72, kg, Q14D, Start date: 06/17/14 0:00:00, Duration: 30 day, Stop date: 07/15/14 9:00:00 Metoclopramide 10 mg, 1 No Longer 10 MG Oral tab, Route: Active 2013 [facility] Tablet PO, Drug form: TAB, Q6H, Dosing Weight 72.72, kg, PRN Nausea, Start date: 06/16/14 23:49:00, Duration: 30 day, Stop date: 07/16/14 23:48:00, [id number]: (Same as: Reglan) Take 30 min before meals Meclizine 12.5 mg, 1 No Longer tab, Route: Active 2013 [facility] PO, Drug form: TAB, QID, Dosing Weight 72.72, kg, PRN as needed for dizziness, Start date: 06/16/14 23:48:00, Duration: 30 day, Stop date: 07/16/14 23:47:00Note s: (Same as: Antivert) Hydroxyzine 25 mg, 1 No Longer Hydrochloride tab, Route: Active 2013 [facility] 25 MG Oral PO, Drug Tablet form: TAB, TID, Dosing Weight 72.72, kg, PRN as needed for itching, Start date: 06/16/14 23:46:00, Duration: 30 day, Stop date: 07/16/14 23:45:00Note s: (Same as: Atarax) Avoid alcohol. Alprazolam 0.5 mg, 2 No Longer tab, Route: Active 2013 [facility] PO, Drug form: TAB, BID, Dosing Weight 72.72, kg, PRN Anxiety, Start date: 06/16/14 23:40:00, Duration: 30 day, Stop date: 07/16/14 23:39:00, bidNotes: With food or milk (Same as: Xanax) 200 ACTUAT 2 puff, No Longer Albuterol 0.09 Route: Active 2013 [facility] MG/ACTUAT / INHALATION, Ipratropium Drug Form: [place] 0.018 AERO, Dosing MG/ACTUAT Weight Metered Dose 72.72, kg, Inhaler QID, PRN [Combivent] Wheezing, Start date: 06/16/14 23:37:00, Duration: 30 day, Stop date: 07/16/14 23:36:00, bidNotes: Same as: Combivent Respimat Dextrose 50% 25 gm, 50 No Longer Syringe mL, Route: Active 2013 [facility] IVP, Drug Form: INJ, Dosing Weight 72.72, kg, PRN, PRN Blood Glucose Results, Start date: 06/16/14 22:06:00, Duration: 30 day, Stop date: 07/16/14 22:05:00 Glucagon 1 mg, Route: No Longer IM, Drug Active 2013 [facility] form: PDR/INJ, PRN, Dosing Weight 72.72, kg, PRN Blood Glucose Results, Start date: 06/16/14 22:06:00, Duration: 30 day, Stop date: 07/16/14 22:05:00 Morphine 4 mg, 1 mL, Inactive Route: IVP, 2013 [facility] Drug form: INJ, Q6H, Dosing Weight 72.727, kg, PRN Pain Score 7-10, Start date: 06/16/14 22:03:00, Duration: 30 day, Stop date: 07/16/14 22:02:00Note s: (Same as:MORPhine Sulfate) Ondansetron 4 mg, 2 mL, No Longer Route: IVP, Active 2013 [facility] Drug form: INJ, Q8H, Dosing Weight 72.72, kg, PRN Nausea & Vomiting, Start date: 06/16/14 22:03:00, Duration: 30 day, Stop date: 07/16/14 22:02:00Note s: (Same as: Zofran) Sodium Chloride 1,000 mL, No Longer 0.154 MEQ/ML Rate: 100 Active 2013 [facility] Injectable ml/hr, Solution Infuse over: 10 hr, Route: IV, Dosing Weight 72.72 kg, Total Volume: 1,000, Start date: 06/16/14 22:03:00, Duration: 30 day, Stop date: 07/16/14 22:02:00 Bentyl 20 mg, 1 No Longer tab, Route: Active 2013 [facility] PO, Drug form: TAB, QID, Dosing Weight 72.727, kg, Start date: 06/16/14 21:00:00, Duration: 30 day, Stop date: 07/16/14 17:00:00Note s: (Same as: Bentyl) Carafate 1 gm, 1 tab, No Longer Route: PO, Active 2013 [facility] Drug form: TAB, QID-Before Meals, Dosing Weight 72.727, kg, Start date: 06/16/14 21:00:00, Duration: 30 day, Stop date: 07/16/14 16:30:00Note s: May interfere w/enteral feeds - Take 1 hr before or 2 hr after antacids, dairy pdt, meals & minerals - On empty stomach. (Same As: Carafate) Protonix 40 mg, No Longer Route: IVP, Active 2013 [facility] Drug form: INJ, Q12H, Dosing Weight 72.727, kg, Start date: 06/16/14 21:00:00, Duration: 30 day, Stop date: 07/16/14 9:00:00Notes : For IV push reconstitute with 10 ml 0.9% sodium chloride and push over 2 minutes. (Same as: Protonix) Cipro 400 mg, 200 No Longer mL, Route: Active 2013 [facility] IVPB, Drug form: INJ, [id number], Start date: 06/16/14 21:00:00, Duration: 30 day, Stop date: 07/16/14 9:00:00Notes : Do not refrigerate gabapentin 400 BID, 0 Active MG Oral Capsule Refill(s) 2013 [facility] topiramate 50 50 mg=1 tab, Active mg oral tablet PO, BID, # 2014 [facility] 60 tab, 0 Refill(s) Methocarbamol 750 mg=1 Active 750 MG Oral tab, Q4H, 0 2013 [facility] Tablet Refill(s) [Robaxin] carBAMazepine 400 mg=2 Active 200 mg oral tab, BID, 0 2013 [facility] tablet Refill(s) amitriptyline 10 mg=1 tab, Active 10 mg oral Bedtime, 0 2013 [facility] tablet Refill(s) Ciprofloxacin 400 mg, Inactive Route: IVPB, 2013 [facility] [id number], Dosing Weight 72.727, kg, Start date: 06/16/14 20:00:00, Duration: 30 day, Stop date: 07/16/14 8:00:00 Flagyl 500 mg, 100 No Longer mL, Route: Active 2013 [facility] IVPB, Drug form: INJ, [id number], Dosing Weight 72.727, kg, Start date: 06/16/14 20:00:00, Duration: 30 day, Stop date: 07/16/14 12:00:00Note s: (Same as: Flagyl) Avoid alcohol. Hydralazine 10 mg, 0.5 No Longer mL, Route: Active 2013 [facility] IVP, Drug form: INJ, Q4H, Dosing Weight 72.727, kg, PRN Other -See Comment, Start date: 06/16/14 18:58:00, Duration: 30 day, Stop date: 07/16/14 18:57:00, SBP > 170Notes: (Same as: Apresoline) Push over 5 minutes 1/2 NS 1,000 mL 1,000 mL, No Longer Rate: 100 Active 2013 [facility] ml/hr, Infuse over: 10 hr, Route: IV, Dosing Weight 72.727 kg, Total Volume: 1,000, Start date: 06/16/14 18:57:00, Duration: 30 day, Stop date: 07/16/14 18:56:00 Albuterol 0.833 3 ml, Route: No Longer MG/ML / INHALATION, Active 2013 [facility] Ipratropium Drug Form: [place] 0.167 SOLN, Dosing MG/ML Inhalant Weight Solution 72.727, kg, [DuoNeb] PRN, PRN Respiratory Protocol, Start date: 06/16/14 18:57:00, Duration: 30 day, Stop date: 07/16/14 18:56:00Note s: (Same as: Duoneb) Morphine 4 mg, 1 mL, No Longer Route: IVP, Active 2013 [facility] Drug form: INJ, Q4H, Dosing Weight 72.727, kg, PRN Pain, Start date: 06/16/14 18:57:00, Duration: 30 day, Stop date: 07/16/14 18:56:00Note s: (Same as:MORPhine Sulfate) Acetaminophen 2 tab, No Longer 325 MG / Route: PO, Active 2013 [facility] Hydrocodone Drug Form: Bitartrate 5 MG TAB, Dosing Oral Tablet Weight [Bayard 5/325] 72.727, kg, Q4H, PRN Pain, Start date: 06/16/14 18:57:00, Duration: 30 day, Stop date: 07/16/14 18:56:00Note s: (Same as: Bayard 325/5) Do not exceed 4gm/day of acetaminophe n. Tylenol 650 mg, 2 No Longer tab, Route: Active 2013 [facility] PO, Drug form: TAB, Q4H, Dosing Weight 72.727, kg, PRN Pain/Fever, Priority: Routine, Start date: 06/16/14 18:56:00, Duration: 30 day, Stop date: 07/16/14 18:55:00, pain, feverNotes: Do not exceed 4 gm/day. (Same as: Tylenol) Zofran 4 mg, 2 mL, No Longer Route: IV, Active 2013 [facility] Drug form: INJ, Q4H, Dosing Weight 72.727, kg, PRN Nausea, Start date: 06/16/14 18:56:00, Duration: 30 day, Stop date: 07/16/14 18:55:00Note s: (Same as: Zofran) Zofran 4 mg, Route: Inactive IVP, Drug 2013 [facility] form: INJ, ONCE, Dosing Weight 72.727, kg, Priority: STAT, Start date: 06/16/14 15:50:00, Stop date: 06/16/14 15:50:00 Morphine 4 mg, Route: Inactive IVP, Drug 2013 [facility] form: INJ, ONCE, Dosing Weight 72.727, kg, Priority: STAT, Start date: 06/16/14 15:50:00, Stop date: 06/16/14 15:50:00 Zofran 4 mg, 2 mL, Inactive Route: IVP, 2013 [facility] Drug form: INJ, ONCE, Dosing Weight 72.727, kg, Priority: STAT, Start date: 06/16/14 15:44:00, Stop date: 06/16/14 15:44:00Note s: (Same as: Zofran) Saline Flush 10 mL, No Longer 0.9% Route: IVP, Active 2013 [facility] Drug Form: INJ, Dosing Weight 72.727, kg, PRN, PRN Line Flush, Start date: 06/16/14 12:43:00, Duration: 30 day, Stop date: 07/16/14 12:42:00Note s: (Same as: BD Posiflush) Morphine 2 mg, Route: Inactive Sugar IVP, Drug [facility] form: INJ, ONCE, Dosing Weight 72.727, kg, Priority: STAT, Start date: 06/06/14 18:06:00, Stop date: 06/06/14 18:06:00 Omnipaque 300 100 mL, 100 Inactive Sugar ml/hr, 2013 [facility] Route: IVPB, Drug Form: SOLN, ONCE, Start date: 06/06/14 16:53:00, Stop date: 06/06/14 16:53:00Note s: (Same as:Omnipaque 300). Phenergan 12.5 mg, Inactive Sugar Route: IM, [facility] ONCE, Dosing Weight 72.727, kg, Priority: STAT, Start date: 06/06/14 16:02:00, Stop date: 06/06/14 16:02:00 Morphine 4 mg, Route: Inactive Sugar IVP, Drug [facility] form: INJ, ONCE, Dosing Weight 72.727, kg, Priority: STAT, Start date: 06/06/14 15:41:00, Stop date: 06/06/14 15:41:00 Ondansetron 4 mg, 2 mL, Inactive Sugar Route: IVP, 2013 [facility] Drug form: INJ, ONCE, Dosing Weight 72.727, kg, Priority: STAT, Start date: 06/06/14 14:49:00, Stop date: 06/06/14 14:49:00Note s: (Same as: Zofran) Saline Flush 5 mL, Route: Inactive Sugar 0.9% IVP, Drug [facility] Form: INJ, Dosing Weight 72.727, kg, PRN, PRN Line Flush, Start date: 06/06/14 14:49:00, Duration: 24 hr, Stop date: 06/07/14 14:48:00Note s: (Same as: BD Posiflush) Sodium Chloride 1,000 mL, Inactive Sugar 0.154 MEQ/ML 1000 ml/hr, 2013 [facility] Injectable Infuse Over: Solution 1 hr, Route: IV, 1,000, Drug form: INJ, ONCE, Priority: STAT, Dosing Weight 72.727 kg, Start date: 06/06/14 14:49:00, Duration: 1 doses or times, Stop date: 06/06/14 14:49:00 Singulair 10 mg, 1 PO No Longer Avtar Sugar tab, Route: Active 2012 [facility] PO, Drug form: TAB, QPM, Dosing Weight 84.091, kg, Start date: 03/31/13 17:00:00, Duration: 30 day, Stop date: 04/29/13 17:00:00 potassium 40 mEq, 30 PO No Longer Jessi Sugar chloride mL, Route: Active 2012 [facility] PO, Drug form: LIQ, ONCE, Dosing Weight 84.091, kg, Start date: 03/31/13 15:00:00, Stop date: 03/31/13 15:00:00 tramadol 50 mg 50 mg, [address] [facility] Sugar oral tablet tab, PO, 2012 Q4H, PRN, 30 tab, as needed for pain, Substitution Allowed, TAB Antivert 25 mg, [address] [facility] Sugar tab, Route: Active 2012 [facility] PO, Drug form: TAB, TID, Dosing Weight 84.091, kg, PRN as needed for dizziness, Start date: 03/31/13 14:13:00, Duration: 30 day, Stop date: 04/30/13 14:12:00 tramadol 50 mg 50 mg, 1 PO No Longer Bowen Sugar oral tablet tab, Route: Active 2012 [facility] PO, Drug form: TAB, Q4H, Dosing Weight 84.091, kg, PRN as needed for pain, Start date: 03/31/13 14:13:00, Duration: 30 day, Stop date: 04/30/13 14:12:00 morphine 2 mg, 1 mL, IVP No Longer Jessi Sugar Sulfate Route: IVP, Active 2012 Drug form: INJ, ONCE, Dosing Weight 84.091, kg, Start date: 03/31/13 14:12:00, Stop date: 03/31/13 14:12:00 Protonix 40 mg, 1 PO No Longer Avtar Sugar tab, Route: Active 2012 PO, Drug form: ECTAB, Daily, Start date: 03/31/13 10:00:00, Duration: 30 day, Stop date: 04/30/13 9:00:00 Imitrex 50 mg, 2 PO No Longer Nath Sugar tab, Route: Active 2012 PO, Drug form: TAB, Daily, Dosing Weight 84.091, kg, PRN Headache, Start date: 03/31/13 9:24:00, Duration: 9 doses or times, Stop date: Limited # of times Dulera inhaler Dulera INHALATION No Longer Avtar Sugar 200mcg/5mcg inhaler Active 2012 "pt's own med." 200mcg/5mcg "pt's own med.", 2 puff, Drug form: MISC, Route: INHALATION, BID, 03/31/13 9:00:00, Duration: 30 day, Stop date: 04/29/13 17:00:00 Dulera 200 2 puff, INHALATION No Longer Avtar Sugar mcg-5 mcg/inh Route: Active 2012 inhalation INHALATION, aerosol Drug Form: AERO, Dosing Weight 84.091, kg, BID, Start date: 03/31/13 9:00:00, Duration: 30 day, Stop date: 04/29/13 17:00:00 estradiol 2 mg, 2 tab, PO No Longer Avtar Sugar Route: PO, Active 2012 Drug form: TAB, Daily, Dosing Weight 84.091, kg, Start date: 03/31/13 9:00:00, Duration: 30 day, Stop date: 04/29/13 9:00:00 Dexilant 60 mg, PO No Longer Avtar Sugar Route: PO, Active 2012 Drug form: DRC, Daily, Dosing Weight 84.091, kg, Start date: 03/31/13 9:00:00, Duration: 30 day, Stop date: 04/29/13 9:00:00 ALPRAZOLam 0.125 mg, PO No Longer Avtar Sugar Route: PO, 2012 Drug form: TABDIS, BID, Dosing Weight 84.091, kg, Start date: 03/31/13 9:00:00, Duration: 30 day, Stop date: 04/29/13 17:00:00 Xanax 0.125 mg, PO No Longer Avtar Sugar 0.5 tab, 2012 Route: PO, Drug form: TAB, BID, Start date: 03/31/13 9:00:00, Duration: 30 day, Stop date: 04/29/13 17:00:00 Klor-Con 10 10 mEq, 1 PO No Longer Avtar Sugar tab, Route: 2012 PO, Drug form: ERTAB, Daily, Dosing Weight 84.091, kg, Start date: 03/31/13 9:00:00, Duration: 30 day, Stop date: 04/29/13 9:00:00 Creon 24,000 1 cap, PO No Longer Avtar Sugar units oral Route: PO, 2012 delayed release Drug Form: capsule CAP, Dosing Weight 84.091, kg, TID, Start date: 03/31/13 9:00:00, Duration: 30 day, Stop date: 04/29/13 17:00:00 losartan 100 mg, 2 PO No Longer Avtar Sugar tab, Route: 2012 PO, Drug form: TAB, QAM, Dosing Weight 84.091, kg, Start date: 03/31/13 9:00:00, Duration: 30 day, Stop date: 04/29/13 9:00:00 aspirin 325 mg 325 mg, 1 PO No Longer Avtar Sugar tablet, enteric tab, Route: 2012 coated PO, Drug form: ECTAB, Daily, Dosing Weight 84.091, kg, Start date: 03/31/13 9:00:00, Duration: 30 day, Stop date: 04/29/13 9:00:00 sucralfate 1 gm, 1 tab, PO No Longer Avtar Sugar Route: PO, Active 2012 Drug form: TAB, QID-Before Meals, Dosing Weight 84.091, kg, Start date: 03/31/13 7:30:00, Duration: 30 day, Stop date: 04/29/13 21:00:00 albuterol 2.49 mg, 3 NEB No Longer Avtar Sugar 0.083% mL, Route: Active 2012 [facility] inhalation NEB, Drug solution form: SOLN, RQ6H, Dosing Weight 84.091, kg, Start date: 03/31/13 2:00:00, Duration: 30 day, Stop date: 04/29/13 20:00:00 Combivent Combivent INHALATION No Longer Avtar Sugar inhaler "pt's inhaler Active 2012 [facility] own med." "pt's own med.", 2 puff, Drug form: MISC, Route: INHALATION, RQID, PRN Wheezing, 03/30/13 23:38:00, Duration: 30 day, Stop date: 04/29/13 23:37:00 Creon 12,000 2 cap, PO No Longer Avtar Sugar units oral Route: PO, Active 2012 delayed release Drug Form: capsule DRC, Dosing Weight 84.091, kg, TID-Meals, NOW, Start date: 03/30/13 23:06:00, Stop date: 04/29/13 17:00:00 meclizine 25 mg, 1 PO No Longer Avtar Sugar tab, Route: Active 2012 [facility] PO, Drug form: TAB, TID, Dosing Weight 84.091, kg, Start date: 03/30/13 22:30:00, Duration: 30 day, Stop date: 04/29/13 17:00:00 Tylenol 650 mg, 2 PO No Longer Avtar Sugar tab, Route: Active 2012 [facility] PO, Drug form: TAB, Q4H, Dosing Weight 84.091, kg, PRN as needed for fever, Start date: 03/30/13 22:04:00, Duration: 30 day, Stop date: 04/29/13 22:03:00 Zofran 4 mg, 2 mL, IV No Longer Avtar Sugar Route: IV, Active [facility] Drug form: INJ, Q4H, Dosing Weight 84.091, kg, PRN as needed for nausea/vomit ing, Start date: 03/30/13 22:04:00, Duration: 30 day, Stop date: 04/29/13 22:03:00 metoclopramide 10 mg, 1 PO No Longer Avtar Sugar 10 mg oral tab, Route: Active 2012 [facility] tablet PO, Drug form: TAB, Q6H, Dosing Weight 84.091, kg, PRN Nausea, Start date: 03/30/13 21:57:00, Duration: 30 day, Stop date: 04/29/13 21:56:00 hydrOXYzine 25 mg, 1 PO No Longer Avtar Sugar hydrochloride tab, Route: Active 2012 [facility] 25 mg oral PO, Drug tablet form: TAB, TID, Dosing Weight 84.091, kg, PRN as needed for itching, Start date: 03/30/13 21:56:00, Duration: 30 day, Stop date: 04/29/13 21:55:00 Combivent 2 puff, INHALER No Longer Avtar Sugar inhalation Route: Active 2012 [facility] aerosol with INHALER, adapter Drug Form: AERO/A, Dosing Weight 84.091, kg, QID, PRN Shortness of breath, Start date: 03/30/13 21:54:00, Duration: 30 day, Stop date: 04/29/13 21:53:00 Bayard 10/325 1 tab, PO No Longer Avtar Sugar oral tablet Route: PO, Active 2012 Drug Form: TAB, Dosing Weight 84.091, kg, Q6H, PRN For Pain, Start date: 03/30/13 21:54:00, Duration: 30 day, Stop date: 04/29/13 21:53:00 Saline Flush 5 ml, Route: IVP No Longer Avtar Sugar 0.9% IVP, Drug Active 2012 [facility] Form: INJ, Dosing Weight 84.091, kg, Q12H, Start date: 03/30/13 21:00:00, Duration: 30 day, Stop date: 04/29/13 9:00:00 Klor-Con 10 10 mEq, 1 PO Active Sugar oral tablet, tab, PO, 2012 extended Daily, release Substitution Allowed, ERTAB meclizine 12.5 12.5 mg, 1 PO Active Sugar mg oral tablet tab, PO, 2012 TID, PRN, 60 tab, for dizziness, Substitution Allowed, TAB Dexilant 60 mg 60 mg, 1 PO Active Sugar oral delayed cap, PO, 2012 [place] release capsule Daily, Substitution Allowed LORAzepam 1 mg, 2 tab, PO No Longer Avtar Sugar Route: PO, Active 2012 [facility] Drug form: TAB, ONCE, Dosing Weight 84.091, kg, Priority: STAT, Start date: 03/30/13 20:12:00, Stop date: 03/30/13 20:12:00 Saline Flush 5 ml, Route: IVP No Longer Avtar Sugar 0.9% IVP, Drug Active 2012 [facility] Form: INJ, Dosing Weight 84.091, kg, PRN, PRN Line Flush, Start date: 03/30/13 20:12:00, Duration: 30 day, Stop date: 04/29/13 20:11:00 ondansetron 4 mg, Route: IVP No Longer Radha Sugar IVP, ONCE, 2012 [facility] Dosing Weight 84.091, kg, Priority: STAT, Start date: 03/30/13 18:44:00, Stop date: 03/30/13 18:44:00 morphine 4 mg, Route: IVP No Longer Radha Sugar Sulfate IVP, ONCE, 2012 [facility] Dosing Weight 84.091, kg, Priority: STAT, Start date: 03/30/13 18:28:00, Stop date: 03/30/13 18:28:00 aspirin 325 mg 325 mg, PO No Longer Radha Sugar tablet Route: PO, Active 2012 [facility] Drug form: TAB, ONCE, Dosing Weight 84.091, kg, Priority: STAT, Start date: 03/30/13 18:25:00, Stop date: 03/30/13 18:25:00 ondansetron 4 mg, Route: IVP No Longer Radha Sugar IVP, ONCE, Active 2012 [facility] Dosing Weight 84.091, kg, Priority: STAT, Start date: 03/30/13 17:11:00, Stop date: 03/30/13 17:11:00 morphine 4 mg, Route: IVP No Longer Sugar Sulfate IVP, ONCE, Active 2012 [facility] Dosing Weight 84.091, kg, Priority: STAT, Start date: 03/30/13 17:11:00, Stop date: 03/30/13 17:11:00 Saline Flush 5 ml, Route: IVP No Longer Sugar 0.9% IVP, Drug Active 2012 [facility] Form: INJ, Dosing Weight 84.091, kg, PRN, PRN Line Flush, Start date: 03/30/13 16:26:00, Duration: 30 day, Stop date: 04/29/13 16:25:00 hydrOXYzine 25 mg, 1 PO No Longer [place] hydrochloride tab, Route: Active 2011 [facility] 25 mg oral PO, Drug tablet form: TAB, Q8H, PRN Itching, Start date: 09/09/12 21:11:00, Duration: 30 day, Stop date: 10/09/12 21:10:00 Antivert 12.5 mg, 1 PO No Longer [facility] tab, Route: Active 2011 [facility] PO, Drug form: TAB, BID, Start date: 09/09/12 15:07:00, Duration: 30 day, Stop date: 10/09/12 9:00:00 Readi-Cat 2 450 mL, PO No Longer [facility] Route: PO, Active 2011 [facility] Drug Form: SUSP, ONCALL, Start date: 09/09/12 12:00:00, Duration: 30 day, Stop date: 10/09/12 11:59:00 Senokot 8.6 mg, 1 PO No Longer [facility] tab, Route: Active 2011 [facility] PO, Drug form: TAB, Daily, Start date: 09/09/12 9:00:00, Duration: 30 day, Stop date: 10/08/12 9:00:00 Xanax 0.25 mg, 1 PO No Longer [facility] 09/09/ MH tab, Route: Active 2011 [facility] PO, Drug form: TAB, Bedtime, Start date: 09/08/12 21:00:00, Duration: 30 day, Stop date: 10/07/12 21:00:00 Carafate 1 gm, 1 tab, PO No Longer [facility] Route: PO, Active 2011 [facility] Drug form: TAB, BID-Before Meals, Start date: 09/08/12 16:30:00, Duration: 30 day, Stop date: 10/08/12 7:30:00 Reglan 10 mg, 1 PO No Longer [facility] tab, Route: Active 2011 [facility] PO, Drug form: TAB, Q8H, Start date: 09/08/12 16:00:00, Duration: 30 day, Stop date: 10/08/12 8:00:00 K-Dur 20 40 mEq, 2 PO No Longer [facility] tab, Route: Active 2011 [facility] PO, Drug form: ERTAB, ONCE, Start date: 09/08/12 14:25:00, Stop date: 09/08/12 14:25:00 albuterol 2.49 mg, 3 NEB No Longer [facility] mL, Route: Active 2011 [facility] NEB, Drug form: SOLN, RQ6H, Start date: 09/08/12 14:00:00, Duration: 30 day, Stop date: 10/08/12 8:00:00 Combivent 2 puff, INHALER No Longer [facility] inhalation Route: Active 2011 [facility] aerosol with INHALER, adapter Drug Form: AERO/A, QID, Start date: 09/08/12 13:00:00, Duration: 30 day, Stop date: 10/08/12 9:00:00 Singulair 10 mg, 1 PO No Longer [facility] tab, Route: Active 2011 [facility] PO, Drug form: TAB, Daily, Start date: 09/08/12 12:15:00, Duration: 30 day, Stop date: 10/08/12 9:00:00 pancrelipase 1 cap, PO No Longer [facility] Route: PO, Active 2011 [facility] Drug Form: CAP, QID-Before Meals, Start date: 09/08/12 11:30:00, Duration: 30 day, Stop date: 10/08/12 7:30:00 Estrace 2 mg, 2 tab, PO No Longer [facility] Route: PO, Active 2011 [facility] Drug form: TAB, Daily, Start date: 09/08/12 11:10:00, Duration: 30 day, Stop date: 10/08/12 9:00:00 Protonix 40 mg, 1 PO No Longer [facility] tab, Route: Active 2011 [facility] PO, Drug form: ECTAB, QAM, Start date: 09/08/12 10:45:00, Stop date: 10/08/12 9:00:00 K-Dur 10 10 mEq, 1 PO No Longer [facility] tab, Route: Active 2011 [facility] PO, Drug form: ERTAB, Daily, Start date: 09/08/12 10:40:00, Duration: 30 day, Stop date: 10/08/12 9:00:00 Cozaar 100 mg, 2 PO No Longer [facility] tab, Route: Active 2011 [facility] PO, Drug form: TAB, Daily, Start date: 09/08/12 10:40:00, Duration: 30 day, Stop date: 10/08/12 9:00:00 Topamax 25 mg, 1 PO No Longer [facility] tab, Route: Active 2011 [facility] PO, Drug form: TAB, Daily, Start date: 09/08/12 10:00:00, Duration: 30 day, Stop date: 10/08/12 9:00:00 Zofran 8 mg, 2 tab, PO No Longer [facility] Route: PO, Active 2011 [facility] Drug form: TAB, Q6H, PRN Nausea, Start date: 09/08/12 9:49:00, Duration: 30 day, Stop date: 10/08/12 9:48:00 hydrOXYzine 25 mg, 1 PO No Longer [facility] hydrochloride tab, Route: Active 2011 [facility] 25 mg oral PO, Drug tablet form: TAB, TID, Start date: 09/08/12 9:45:00, Duration: 30 day, Stop date: 10/08/12 9:00:00 acetaminophen-h 1 tab, PO No Longer [facility] 11/19/ ydrocodone 325 Route: PO, Active 2011 [facility] mg-10 mg oral Drug Form: tablet TAB, Q4H, PRN Pain, Start date: 09/08/12 9:43:00, Duration: 30 day, Stop date: 10/08/12 9:42:00 aspirin 81 mg 162 mg, 2 CHEW No Longer Jasso tablet, tab, Route: Active 2011 [facility] chewable CHEW, Drug form: CHEWTAB, Daily, Start date: 09/08/12 9:00:00, Duration: 30 day, Stop date: 10/07/12 9:00:00 ipratropium 0.5 mg, 2.5 NEB No Longer [facility] 0.02% mL, Route: Active 2011 [facility] inhalation NEB, Drug solution form: SOLN, RQ4H, PRN Shortness of breath, Start date: 09/08/12 7:55:00, Duration: 30 day, Stop date: 10/08/12 7:54:00 Zofran 4 mg, 2 mL, IVP No Longer [place]asso Route: IVP, Active 2011 [facility] Drug form: INJ, Q6H, PRN Nausea & Vomiting, Start date: 09/08/12 5:26:00, Duration: 30 day, Stop date: 10/08/12 5:25:00 morphine 2 mg, 1 mL, IVP No Longer [place] Sulfate Route: IVP, Active 2011 [facility] Drug form: INJ, Q2H, PRN Pain Score 7-10, Start date: 09/08/12 5:25:00, Duration: 30 day, Stop date: 10/08/12 5:24:00 morphine 5 mg, Route: IVP No Longer Keldron Sulfate IVP, ONCE, Active 2011 [facility] Dosing Weight 84.091, kg, Priority: STAT, Start date: 09/08/12 1:42:00, Stop date: 09/08/12 1:42:00 albuterol Substitution Active 0.083% Allowed 2011 [facility] inhalation solution Dulera 200 Substitution Active mcg-5 mcg/inh Allowed, 2011 [facility] inhalation Maintenance aerosol Combivent 2 puff, INHALER Active inhalation INHALER, 2011 [facility] aerosol with QID, 14 gm, adapter Substitution Allowed, Maintenance Protonix 40 mg Substitution Active oral enteric Allowed 2011 [facility] coated tablet ondansetron 8 Substitution Active mg oral tablet Allowed 2011 [facility] estradiol 2 mg Substitution Active oral tablet Allowed 2011 [facility] ALPRAZOLam 0.25 Substitution Active mg oral tablet, Allowed 2011 [facility] disintegrating topiramate 25 Substitution Active mg oral tablet Allowed 2011 [facility] Prevacid 30 mg Substitution Active oral delayed Allowed 2011 [facility] release capsule losartan 100 mg Substitution Active oral tablet Allowed 2011 [facility] hydrOXYzine Substitution Active hydrochloride Allowed 2011 [facility] 25 mg oral tablet metoclopramide Substitution Active 10 mg oral Allowed 2011 [facility] tablet Singulair 10 mg Substitution Active oral tablet Allowed 2011 [facility] Creon 24,000 Substitution Active units oral Allowed, 2011 [facility] delayed release Maintenance capsule sucralfate 1 g Substitution Active oral tablet Allowed 2011 [facility] Bayard 10/325 Substitution Active oral tablet Allowed, 2011 [facility] Maintenance Sodium Chloride 250 mL, IVPB No Longer Ajsso 0.9% IV Route: IVPB, Active 2011 [facility] Start date: 09/08/12 0:36:00, Duration: 30 day, Stop date: 10/08/12 0:35:00, PRN Line Flush BD Normal 10 mL, IVP No Longer Jasso Saline Flush Route: IVP, Active 2011 [facility] Drug Form: INJ, PRN, PRN Line Flush, Start date: 09/08/12 0:36:00, Duration: 30 day, Stop date: 10/08/12 0:35:00 nitroglycerin 0.5 inch, TOP No Longer Jasso 2% ointment Route: TOP, Active 2011 [facility] Drug Form: OINT, Dosing Weight 84.091, kg, ONCE, STAT, Start date: 09/07/12 23:37:00, Stop date: 09/07/12 23:37:00 morphine 5 mg, Route: IVP No Longer [place] Sulfate IVP, ONCE, Active 2011 [facility] Dosing Weight 84.091, kg, Priority: STAT, Start date: 09/07/12 23:37:00, Stop date: 09/07/12 23:37:00 ondansetron 4 mg, Route: IVP No Longer Keldron IVP, ONCE, Active 2011 [facility] Dosing Weight 84.091, kg, Priority: STAT, Start date: 09/07/12 23:37:00, Stop date: 09/07/12 23:37:00 Saline Flush 5 ml, Route: IVP No Longer Jasso 0.9% IVP, Dosing Active 2011 [facility] Weight 84.091, kg, PRN, PRN Line Flush, Start date: 09/07/12 23:37:00, Duration: 24 hr, Stop date: 09/08/12 23:36:00 Sodium Chloride 500 mL, IV No Longer Keldron 0.9% (Bolus) IV Rate: 500 [facility] 2011 [facility] 500 mL ml/hr, Infuse over: 1 hr, Route: IV, kg, Total Volume: 500, Bolus dose, Priority: STAT, Start date: 09/07/12 23:37:00, Duration: 1 doses or times, Stop date: 09/08/12 0:36:00 Estrace 2 mg, 2 tab, PO No Longer [facility] Route: PO, Active 2011 [facility] Drug form: TAB, Daily, Start date: 09/02/12 9:00:00, Duration: 30 day, Stop date: 10/01/12 9:00:00 Protonix 40 mg, 1 PO No Longer [facility] tab, Route: Active 2011 [facility] PO, Drug form: ECTAB, Daily, Start date: 09/02/12 9:00:00, Duration: 30 day, Stop date: 10/01/12 9:00:00 Cozaar 100 mg, 2 PO No Longer [facility] tab, Route: Active 2011 [facility] PO, Drug form: TAB, Daily, Start date: 09/02/12 9:00:00, Duration: 30 day, Stop date: 10/01/12 9:00:00 Senokot 8.6 mg, 1 PO No Longer [facility] tab, Route: Active 2011 [facility] PO, Drug form: TAB, Daily, Start date: 09/02/12 9:00:00, Duration: 30 day, Stop date: 10/01/12 9:00:00 Topamax 25 mg, 1 PO No Longer [facility] 11/13/ MH tab, Route: Active 2011 [facility] PO, Drug form: TAB, Daily, Start date: 09/02/12 9:00:00, Duration: 30 day, Stop date: 10/01/12 9:00:00 potassium 40 mEq, 30 PO No Longer [facility] 11/13/ MH chloride mL, Route: Active 2011 [facility] PO, Drug form: LIQ, ONCE, Start date: 09/01/12 22:22:00, Stop date: 09/01/12 22:22:00 Xanax 0.25 mg, 1 PO No Longer [facility] 11/13/ MH tab, Route: Active 2011 [facility] PO, Drug form: TAB, Bedtime, Start date: 09/01/12 21:00:00, Duration: 30 day, Stop date: 09/30/12 21:00:00 potassium 40 mEq, 30 PO No Longer [facility] 11/13/ MH chloride mL, Route: Active 2011 [facility] PO, Drug form: LIQ, ONCE, Start date: 09/01/12 18:21:00, Stop date: 09/01/12 18:21:00 albuterol 2.49 mg, 3 NEB No Longer [facility] 11/13/ MH mL, Route: Active 2011 [facility] NEB, Drug form: SOLN, Q6H, Start date: 09/01/12 18:00:00, Duration: 30 day, Stop date: 10/01/12 12:00:00 hydrOXYzine 25 mg, 1 PO No Longer [facility] 11/12/ MH hydrochloride tab, Route: Active 2011 [facility] 25 mg oral PO, Drug tablet form: TAB, TID, Start date: 09/01/12 17:00:00, Duration: 30 day, Stop date: 10/01/12 13:00:00 Combivent 2 puff, INHALER No Longer [facility] 11/12/ MH inhalation Route: Active 2011 [facility] aerosol with INHALER, adapter Drug Form: AERO/A, QID, Start date: 09/01/12 17:00:00, Duration: 30 day, Stop date: 10/01/12 13:00:00 Carafate 1 gm, 1 tab, PO No Longer [facility] Route: PO, Active 2011 [facility] Drug form: TAB, BID-Before Meals, Start date: 09/01/12 16:30:00, Duration: 30 day, Stop date: 10/01/12 7:30:00 pancrelipase 1 cap, PO No Longer [facility] Route: PO, Active 2011 [facility] Drug Form: CAP, QID-Before Meals, Start date: 09/01/12 16:30:00, Duration: 30 day, Stop date: 10/01/12 11:30:00 Reglan 10 mg, 1 PO No Longer [facility] tab, Route: Active 2011 [facility] PO, Drug form: TAB, Q8H, Start date: 09/01/12 16:00:00, Duration: 30 day, Stop date: 10/01/12 8:00:00 Zofran 8 mg, 2 tab, PO No Longer [facility] Route: PO, Active 2011 [facility] Drug form: TAB, Q6H, PRN Nausea, Start date: 09/01/12 14:41:00, Duration: 30 day, Stop date: 10/01/12 14:40:00 acetaminophen-h 1 tab, PO No Longer [facility] ydrocodone 325 Route: PO, Active 2011 [facility] mg-10 mg oral Drug Form: tablet TAB, Q4H, PRN Pain, Start date: 09/01/12 14:36:00, Duration: 30 day, Stop date: 10/01/12 14:35:00 Sodium Chloride 250 mL, IVPB No Longer [facility] 0.9% IV Route: IVPB, Active 2011 [facility] Start date: 09/01/12 14:30:00, Duration: 30 day, Stop date: 10/01/12 14:29:00, PRN Line Flush BD Normal 10 mL, IVP No Longer [facility] Saline Flush Route: IVP, Active 2011 [facility] Drug Form: INJ, PRN, PRN Line Flush, Start date: 09/01/12 14:29:00, Duration: 30 day, Stop date: 10/01/12 14:28:00 Hydrocodone EVERY EIGHT Active [place] 09/25/ [facility] 10/[facility]ap 325 HOURS 2011 [facility]ED PRN [place] For Pain Albuterol Neb EVERY [address] HOURS 2011 [facility]ED PRN [place] For Shortness Of Breath Ipratrop/Albute FOUR TIMES Active [facility] rol Inhaler DAILY 2012 [facility] [place] Creon BEFORE MEALS Active St. AND AT 2011 [facility] - BEDTIME [place] Hydroxyz Q6H PRN For Active St. Allergies 2012 [facility] [place] Losartan DAILY Active St. Potassium 2012 [facility] [place] Alprazolam AT BEDTIME Active St. 2011 [facility] [place] Zofran ODT 4 mg 4 mg, 1 tab, PO Active [place] 09/06/ [facility] oral tablet, PO, Q6H, 10 2010 disintegrating tab, Substitution Allowed, Dissolve tab under tongueDissol ve tab under tongue [place] 1-2 tab, PO, PO Active [place] 09/06/ [facility] oral tablet Q6H, PRN, 30 2010 tab, Pain, Substitution Allowed, Maintenance ondansetron 4 mg, Route: IVP No Longer [facility] Sugar IVP, Drug Active 2010 [place] form: INJ, ONCE, Priority: STAT, Start date: 09/06/11 15:32:00, Stop date: 09/06/11 15:32:00 hydromorphone 1 mg, 0.5 IVP No Longer [facility] MH Sugar mL, Route: Active 2010 IVP, Drug form: INJ, ONCE, Priority: STAT, Start date: 09/06/11 15:23:00, Stop date: 09/06/11 15:23:00 Omnipaque 300 30,000 mg, IV No Longer [facility] Sugar 100 mL, Active 2010 Route: IV, Drug form: SOLN, ONCE, Start date: 09/06/11 13:42:00, Stop date: 09/06/11 13:42:00 Saline Flush 5 ml, Route: IVP No Longer [facility] Sugar 0.9% IVP, Drug Active 2010 [place] Form: INJ, PRN, PRN Line Flush, Start date: 09/06/11 12:11:00, Duration: 30 day, Stop date: 10/06/11 12:10:00 hydromorphone 1 mg, 0.5 IVP No Longer [facility] Sugar mL, Route: Active 2010 IVP, Drug form: INJ, ONCE, Priority: STAT, Start date: 09/06/11 12:11:00, Stop date: 09/06/11 12:11:00 ondansetron 4 mg, 2 mL, IVP No Longer [facility] Sugar Route: IVP, Active 2010 Drug form: INJ, ONCE, Priority: STAT, Start date: 09/06/11 12:11:00, Stop date: 09/06/11 12:11:00 Combivent Substitution Active [place] inhalation Allowed, 2010 [place] aerosol with Maintenance adapter Dulera 100 Substitution Active [place] mcg-5 mcg/inh Allowed, 2010 [facility] inhalation Maintenance aerosol Vitamin B12 Substitution Active [place] Allowed 2010 [facility] Singulair Substitution Active [place] Allowed 2010 [facility] topiramate Substitution Active [place] Allowed 2010 [facility] omeprazole Substitution Active [place] Allowed 2010 [facility] losartan Substitution Active [place] Allowed 2010 [place] Reglan Substitution Active [place] Allowed 2010 [facility] hydrOXYzine Substitution Active [place] Allowed 2010 [facility] ALPRAZOLam Substitution Active [place] Allowed 2010 [facility] metoprolol Substitution Active [place] Allowed 2010 [facility] sucralfate Substitution Active [facility] Allowed 2010 [facility] ranitidine Substitution Active [place] Allowed 2010 [place] Creon Substitution Active [place] Allowed 2010 [place] Albuterol Every 4 RESPIRATOR Active [place] Sulfate 0.5 % Hours Y [facility] (1-5-9-13-17 (INHALATIO Medical -21) for N) Center Shortness Of Breath Albuterol/Iprat Four Times ORAL Active [place] ropium Daily Regional (Combivent Medical Respimat 120 Center Mcg *) Aer Alprazolam Once Daily ORAL Active [place] (Alprazolam*) At Bedtime Regional 0.5 Mg [facility] Carvedilol Twice A Day ORAL Active [place] (Coreg *) 6.25 Regional Mg Tab Medical Center Estradiol 0.075 Every 7 Days Active [place] Mg/24 Hr Dis [facility] Gabapentin Twice A Day ORAL Active [place] (Gabapentin 100 Regional Mg (Neurontin) Medical *) 100 Mg Cap Center Hydroxyzine Hcl Every 6-8 ORAL Active [place] (Atarax 25 Mg*) Hours for Regional 25 Mg Tab Anxiety Medical Center Losartan Daily ORAL Active [place] Potassium Regional (Cozaar *) 100 Medical Mg Tab Center Meclizine Hcl Three Times ORAL Active [place] (Meclizine Hcl Daily As Regional 12.5 Mg *) 12.5 Needed Medical Mg Tab Center Methocarbamol Active [place] 750 Mg Tab [facility] Metoclopramide Twice A Day ORAL Active before food [place] Hcl (Reglan 10 and bedtime Regional Mg*) 10 Mg Tab Medical Center Metolazone Every ORAL Active [place] (Zaroxolyn 2.5 Morning Regional Mg*) 2.5 Mg Tab Medical [place] Montelukast Daily ORAL Active [place] Sodium Regional (Montelukast Medical Sodium 10 Mg Center (Singulair) *) 10 Mg Tab Omeprazole-Sodi Once Daily ORAL Active [place] um Bicarbonate Regional (Omeprazole/Sod Medical ium Bicarbo Center 40MG/1100MG) 1 Cap Cap Ondansetron Hcl Every 6 ORAL Active [place] (Zofran *) 4 Mg Hours As Regional Tab Needed Medical Center Pancrelipase Four Times ORAL Active [place] (Lipase-Proteas Daily Regional e- (Creon Medical 24,000 Unt) Center 24,000 Unt Cap Potassium Daily ORAL Active [place] Chloride Er * Regional 20 Meq Tab Medical Center Sertraline Hcl Active [place] 50 Mg Tab [facility] Sucralfate Four Times ORAL Active [place] (Sucralfate 1 Daily Regional Gm) 1 Gm Tab Medical Center Dicyclomine Hcl Once Daily ORAL Active [place] (Dicyclomine As Needed Regional Hcl 20 Mg for Medical (Bentyl) *) 20 Irritable Center Mg Tab Bowel Symptoms Hydrocodone-Heriberto Four Times ORAL Active [place] taminophen Daily As Regional 10/325MG * Needed as Medical ([place] 10/325MG needed for Center *) 1 Tab Tab Pain Lactulose Twice A Day ORAL Active [place] (Cephulac 10 for Regional Gm/15ML *) 10 Constipation Medical Gm/15 Ml Syrp Center Methocarbamol Once Daily ORAL Active [place] (Methocarbamol Regional 750 Mg) 750 Mg Medical Tab Center Omeprazole Daily as ORAL Active [place] (Omeprazole 40 needed for Regional Mg *) 40 Mg Cap Indigestion Medical Center Prednisone Daily ORAL Active [place] (Prednisone 10 Regional Mg) 10 Mg [facility] Sertraline Hcl Daily ORAL Active [place] (Zoloft *) 25 Regional Mg Tab Medical Center Sucralfate Before Meals ORAL Active [place] (Carafate*) 1 And At Regional Gm Tab Bedtime Medical Center Allergies, Adverse Reactions, Alerts Substance Category Reaction Severity Reaction Status Date Comments Source type Reported Diphenhydra Severe Allergy to Active [place] Substance 1 a ([id number] Regional 0) Medical Center Norepinephr Severe Allergy to Active [place] ine Substance 1 a ([id number] Regional 7) Medical Center Pentazocine Severe Allergy to Active [place] ([id number] Substance 1 a 7) [facility] Triamcinolo Severe Allergy to Active [place] Substance 2 a ([id number] Regional 2) Medical [place] Naloxone Severe Allergy to Active [place] ([id number] Substance 2 a 0) [facility] diphenhydra Anaphylaxi Severe Allergy to [facility] HCl s Substance 2 [facility] [place] pentazocine Anaphylaxi Severe Allergy to Active [facility] lactate s Substance 2 [facility] [place] triamcinolo Anaphylaxi Severe Allergy to Active [facility] Substance 2 [facility] acetonide [place] Levofloxaci Severe Allergy to Active [place] Substance 5 a ([id number] Regional 1) Medical Center Penicillins Itching/Hi Allergy to Active [facility] ves/Rash Substance 5 [facility] [place] PCN Unknown Allergy to Active [facility] Substance 5 [facility] [place] Ibuprofen Severe Allergy to Active [place] ([id number] Substance 7 a 3) [facility] Penbutolol Severe Allergy to Active [place] ([id number] Substance 7 a 4) [facility] Penicillins Severe Allergy to Active [place] ([id number] Substance 7 a 1) [facility] Tape Unknown Allergy to Active [facility] Substance 7 [facility] [place] [facility] Unknown Allergy to Active [facility] Substance 7 [facility] [place] naloxone Unknown Allergy to Active [facility] Substance 7 [facility] [place] penbutolol Unknown Allergy to Active [facility] Substance 7 [facility] [place] hyoscyamine Unknown Allergy to Active [facility] sulfate Substance 7 [facility] [place] levabid Unknown Allergy to Active [facility] Substance 7 [facility] [place] pentazocine Unknown Allergy to Active [facility] Substance 7 [facility] [place] Triamcinolo Unknown Allergy to Active [facility] Acetoni Substance 7 [facility] [place] Triamcinolo Unknown Allergy to Active [facility] A Substance 8 [facility] [place] [facility] Tria Unknown Allergy to Active [facility] Substance 8 [facility] [place] Promethazin SUPPOSITOR Intermedia Allergy to Active [place] Y ONLY, te Substance 8 a IRRITATION [facility] Benadryl Assertion hives Drug Active MH allergy Kenalog Assertion paralysis, Drug Active MH Kenalog allergy [place]win Assertion hives, Drug Active MH unfunction allergy al t ibuprofen Assertion Drug Active MH allergy levofloxaci Assertion bumps Drug Active MH n allergy norepinephr Assertion hives Drug Active Data ine<sup>1</ allergy migrated [place] sup> from [facility] on 02/15/15. Originally documented as LEVOPHED. penicillins Assertion nausea Drug Active MH allergy pentazocine Assertion hives Drug Active Data MH <sup>2</sup allergy migrated [place] > from [facility] on 02/15/15. Originally documented as TALWIN. triamcinolo Assertion hives Drug Active Data MH ne allergy migrated [place] topical<sup from GE t >3</sup> [facility] on 02/15/15. Originally documented as KENALOG. Immunizations Immunization Date Given Site Status Last Updated Comments Source Results Order Name Results Value Reference Date Interpretation Comments Source Range Renal Renal Stone Patient Name: MARNIE KATHLEEN 09/28 - Stone [facility] CT /2017 - [facility] : 1960; Age: 57 years y/o Female MR: [id number] Read by: Bernabe Benoit MD Dictated Date/time: 09/28/18 17:43 Electronically Signed by: Bernabe Benoit MD 09/28/18 17:55 FINAL REPORT * I. COMPUTED TOMOGRAPHY SCAN OF THE ABDOMEN without contrast. * II. COMPUTED TOMOGRAPHY SCAN OF THE PELVIS without contrast (Renal stone protocol). HISTORY: Generalized nonspecific abdominal pain.. COMPARISON: Contrast enhanced computed tomography scan of the abdomen and pelvis of 09/19/2016. TECHNIQUE: I. COMPUTED TOMOGRAPHY SCAN OF THE ABDOMEN without contrast: Helical CT images were obtained on a multidetector computed tomography scanner from the domes the diaphragms to the iliac contrast. Neither oral or intravenous contrast was provided. II. COMPUTED TOMOGRAPHY SCAN OF THE PELVIS without contrast: Helical CT images were obtained on a multidetector computed tomography scanner from the iliac crests to the pubic symphysis. Neither oral or intravenous contrast was provided. Coronal and sagittal reconstructions were obtained. CT imaging performed at this location utilizes radiation dose optimization techniques which include one or more of the following: -Automated exposure control. -Adjustment of the mA and/or kV according to patient size. -Use of iterative reconstruction technique. CT radiation dose DLP: 572 mGy-cm FINDINGS: There is no evidence of an acute intra-abdominal process. There is no free intraperitoneal gas, significant intra-abdominal fluid, or hemorrhage. The liver, spleen, pancreas, and adrenal glands are normal in appearance. The kidneys are lower limits of normal in size without hydronephrosis. No calculi or focal renal lesions are visualized. Evaluation of the solid organs is limited due to lack of intravenous contrast. There is a moderate amount of fecal material within the colon ( constipation). The gastrointestinal structures are otherwise unremarkable. There is no evidence of obstruction or ileus. A normal appendix is visualized. There is no evidence of appendicitis. Evaluation of the gastrointestinal structures is limited due to lack of oral contrast. Gallbladder is not visualized. Although no surgical clips are seen in the right upper quadrant, this presumed the patient is status post cholecystectomy. Please correlate with surgical history. There is no evidence of biliary ductal dilatation. No mass or adenopathy is seen within the abdomen or pelvis. There are mild atherosclerotic calcifications involving the abdominal aorta. The abdominal aorta is normal in caliber. The uterus is not visualized. Presumably, the patient has had a prior hysterectomy. Small gas loculations are noted in the subcutaneous tissues of the anterior abdominal wall bilaterally presumably related to subcutaneous injections. The visualized lung bases are clear. There are no pleural effusions. The heart is normal in size. There is no pericardial effusion. There is mild degenerative facet disease at L4-L5. Otherwise, the osseous structures are unremarkable. IMPRESSION: 1. No evidence of an acute intra-abdominal process. 2. No evidence of urinary tract calculi or hydronephrosis. 3. Constipation. 4. Atherosclerosis. 5. The uterus is not visualized. Presumably, the patient has had a prior hysterectomy. 5. Apparent prior cholecystectomy. 6. Small gas loculations in the subcutaneous tissues of the anterior abdominal wall bilaterally, presumably related to subcutaneous injections. 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 COMPARISON: March 2017 FINDINGS: Lungs are clear. No pleural effusion or pneumothorax is present. Cardiomediastinal silhouette is normal. Bones are normal. IMPRESSION: No acute abnormality of the chest. SL: SSENDOS-PC White blood 18.7 4.0 - 11.5 09/28 [place] cell count /2017 [facility] RBC count 4.80 3.80 - 09/28 [place] 5.20 /2017 [facility] Blood 12.4 10.5 - 12 [place] hemoglobin 15.7 /2017 Regional measurement Medical (mass/volume Center ) Hematocrit 38.1 34.0 - 12 [place] 50.0 [facility] MCV (mean 79.2 78 - 98 09/28 [place] corpuscular /2017 [facility] volume) Medical determinatio Center n Mean 25.9 26.2 - 09/28 [place] corpuscular 33.4 /2017 [facility] hemoglobin Medical ([facility]) Center determinatio n Mean 32.6 31.5 - 12/ [place] corpuscular 36.2 /2017 [facility] hemoglobin Medical concentratio Center n ([facility]CH[facility]) determinatio n RDW 16.0 11.5 - 09/28 [place] 15.5 [facility] Platelets 398 137 - 338 09/28rda bld [facility] Blood 8.1 8.4 - 11.8 09/28rda platelet /2017 [facility] mean volume Medical Center Blood band 45.3 44.4 - 12[place] neutrophils/ 80.1 [facility] 100 Medical leukocytes Center Body fluid 43.7 10.0 - 09/28rda lymphocytes/ 50.0 [place] [id number] Medical leukocytes Center [place] % 8.2 3.6 - 09/28 [place] 12.04 [facility] Eosinophil % 1.3 0.0 - 5.41 09/[place] [facility] Basophil % 1.5 0.0 - 0.79 09/28[place] [facility] Glucose 129 74 - 106 09/28[place] measurement [facility] Serum or 12 6 - 20 09/[place] plasma urea [facility] nitrogen Medical measurement Center (mass/volume ) Osmolality 277 280 - 300 09/28a ser [facility] Creatinine 1.0 0.50 - 09/28rda blood 0.90 [facility] Center Estimated null 09/28a glomerular [facility] filtration Medical rate (GFR) Center determinatio n Serum or 12.0 12 - 20 09/28a plasma urea /2017 [facility] nitrogen/cre Medical atinine Center ratio Sodium level 138 135 - 145 09/28 [place] [facility] Body fluid 3.7 3.5 - 5.2 09/28 [place] potassium [facility] Chloride 97 98 - 108 09/28 [place] measurement 2018 [facility] CO2 29 21 - 32 09/28 [place] [facility] Anion gap 15.7 12 - 20 09/28 [place] measurement [facility] Calcium 9.4 8.6 - 10.0 09/28 [place] level [facility] Total 7.5 6.6 - 8.7 09/28 [place] protein [facility] Albumin 4.0 3.5 - 5.2 09/28 [place] [facility] Globulin ser 3.5 09/28 [place] [facility] Albumin-glob 1.1 >1.0 09/28 [place] ulin ratio [facility] Bilirubin null 0.0 - 1.2 09/28 [place] total 2018 [facility] AST 18 15 - 32 09/[address] [place] [address] [place] [address] ALT (SGPT) 15 0 - 33 09/28 [place] ser/plas /2018 [facility] ALP ser/plas 118 35 - 105 09/28 [place] [facility] Cholesterol 173 150 - 200 09/[address] [place] [address] [place] [address] Triglyceride 124 <150 09/28 [place] s level [facility] HDL 72 >65 09/28 [place] [facility] LDL 87 <100 09/28 [place] cholesterol, /2017 [facility] direct [facility] Center Cholesterol/ 2.402 09/28 [place] HDL ratio /[address] [place] [address] Color of LIGHT 09/27 Urine by YELLOW [facility] Auto Medical Center Urine CLEAR CLEAR 09/27 [place] appearance [facility] determinatio Medical n Center Glucose NEGATIVE NEGATIVE 09/27 [place] [Presence] Regional in Urine by Medical Automated Center test strip Urine total NEGATIVE NEGATIVE 09/27[place]da bilirubin [facility] measurement Medical (mass/volume Center ) Ketones NEGATIVE NEGATIVE 09/27 [place] [Mass/volume /2018 Regional ] in Urine Medical by Automated Center test strip Specific 1.011 1.003 - 1208 [place] gravity of 1.030 Regional Urine by Medical Automated Center test strip Urine blood NEGATIVE NEGATIVE 09/27 [place] detection by [facility] dipstick Medical Center Urine pH 6.000 5 - 9 09/27 [place] measurement /2018 [facility] Center Urine NEGATIVE NEGATIVE 09/27 [place] protein test Regional by dipstick Medical Center Urine NORMAL 0.2 - 1.0 09/27 [place] urobilinogen /2017 [facility] detection Medical Center Nitrite ur NEGATIVE NEGATIVE 09/27 [place] dipstick /2017 [facility] Urine NEGATIVE NEGATIVE 09/27 [place] leukocyte /2017 [facility] esterase Medical detection by Center automated test strip RBC count ur null 0 - 5 09/27 [place] auto /2017 [facility] Leukocytes null 0 - 5 09/27 [place] [#/area] in [facility] Urine Medical sediment by Center Automated count Epithelial null 0 - 5 09/27 [place] cells Regional detection in Medical urine Center sediment by light microscopy Bacterial TRACE None 09/27 [place] urine Detect /2017 [facility] culture Medical Center Automated None None 09/27 [place] urine Detected Detect [facility] sediment Medical casts Center (number/area ) Urine NO 09/27 [place] Culture /2017 [facility] Reflexed Medical Center Creatine 84 20 - 180 09/27 [place] kinase /2018 [facility] measurement [facility] Center Troponin I null 0.0 - 0.5 09/27 [place] ser/plas [facility] Serum or null 0.0 - 3.6 09/27 [place] plasma [facility] creatine Medical kinase MB Center (CK-MB) measurement by immunoassay (mass/volume ) Blood SPECIMEN 09/26 [place] culture HAS BEEN /2017 Regional RECEIVED Medical IN LAB AND Center IS IN PROGRESS. Neutrophil 65 37.0 - 12 [place] count 80.0 [facility] Center Manual blood 2 0 - 3 09/26 [place] band /2017 [facility] neutrophils Medical form/100 Center leukocytes Lymphocyte 29 10 - 50 09/26 [place] percentage /2017 [facility] Blood 4 0 - 12 09/26 [place] monocytes /2017 Regional manual count Medical (number/volu Center ma) Eosinophil 0 0 - 7 09/26 [place] count /2018 [facility] Basophil % 0 0 - 3 09/26 [place] manual [facility] Medical Center Automated ADEQUATE ADEQUATE 09/26 [place] blood [facility] platelet Medical count Center (count/volum e) Automated NORMAL NORMAL 09/26 [place] blood [facility] platelet Medical count Center (count/volum e) Blood 1+ 09/26 [place] anisocytosis [facility] Lipase 104 13 - 60 09/26 [place] [facility] NT-proBNP 68 0 - 125 09/26 [place] measurement [facility] Color of LIGHT 09/24 [place] Urine by YELLOW [facility] Auto [facility] Center Urine CLEAR CLEAR 09/24 [place] appearance [facility] determinatio [facility] n Center Glucose NEGATIVE NEGATIVE 09/24 [place] [Presence] Regional in Urine by Medical Automated Center test strip Urine total NEGATIVE NEGATIVE 09/24 [place] bilirubin [facility] measurement Medical (mass/volume Center ) Ketones NEGATIVE NEGATIVE 09/24 [place] [Mass/volume /2018 Regional ] in Urine Medical by Automated Center test strip Specific 1.015 1.003 - 09/24 [place] gravity of 1.030 Regional Urine by Medical Automated Center test strip Urine blood NEGATIVE NEGATIVE 09/24 [place] detection by [facility] dipstick Medical Center Urine pH 5.500 5 - 9 09/24 [place] measurement 2018 [facility] Urine NEGATIVE NEGATIVE 09/24 [place] protein test [facility] by dipstick Medical Center Urine NORMAL 0.2 - 1.0 09/24 [place] urobilinogen [facility] detection Medical Center Nitrite ur NEGATIVE NEGATIVE 09/24 [place] dipstick /2017 [facility] Urine NEGATIVE NEGATIVE 09/24 [place] leukocyte /2017 [facility] esterase Medical detection by Center automated test strip RBC count ur null 0 - 5 09/24 [place] auto /2018 [facility] Center Leukocytes null 0 - 5 09/24 [place] [#/area] in [facility] Urine Medical sediment by Center Automated count Epithelial null 0 - 5 09/24 [place] cells Regional detection in Medical urine Center sediment by light microscopy Bacterial None None 09/24 [place] urine Detected Detect /2017 [facility] culture Medical Center Automated None None 09/24 [place] urine Detected Detect [facility] sediment Medical casts Center (number/area ) Urine NO 09/24 [place] Culture /2017 [facility] Reflexed [facility] Amylase 149 28 - 100 12 [place] serum /2017 [facility] White blood 16.5 4.0 - 11.5 12 [place] cell count /2017 [facility] RBC count 4.59 3.80 - 12 [place] 5.20 /2017 [facility] Blood 11.8 10.5 - 12 [place] hemoglobin 15.7 /2017 [facility] measurement [facility] (mass/volume Center ) Hematocrit 36.0 34.0 - 12 [place] 50.0 /2017 [facility] MCV (mean 78.5 78 - 98 09/24 [place] corpuscular /2017 [facility]) Medical determinatio Center n Mean 25.6 26.2 - 09/24 [place] corpuscular 33.4 /2017 [facility] hemoglobin Medical ([facility]) Center determinatio n Mean 32.7 31.5 - 12 [place] corpuscular 36.2 /2017 [facility] hemoglobin Medical [facility] determinatio n RDW 15.2 11.5 - 12 [place] 15.5 [facility] Platelets 299 137 - 338 09/24 [place] bld /2017 [facility] Blood 8.4 8.4 - 11.8 09/24 [place] platelet /2017 [facility] volume [facility] Blood band 43.0 44.4 - 09/[place] neutrophils/ 80.[address] leukocytes [place] Body fluid 39.1 10.0 - 12 [place] lymphocytes/ 50.0 /[address] leukocytes [place] % 13.0 3.6 - 12 [place] 12.04 [facility] Eosinophil % 2.1 0.0 - 5.41 09/24 [place] [facility] Basophil % 2.9 0.0 - 0.79 09/24 [place] [facility] Glucose 128 74 - 106 09/24 [place] measurement /2017 [facility] Serum or 11 6 - 20 09/24rda plasma urea /2017 [facility] nitrogen Medical measurement Center (mass/volume ) Osmolality 277 280 - 300 09/24 [place] ser 2018 [facility] Creatinine 1.1 0.50 - 12 [place] blood 0.90 /2017 [facility] Estimated null 09/24[place] glomerular [facility] filtration Medical rate (GFR) Center determinatio n Serum or 10.0 12 - 09/24 [place] plasma urea [facility] nitrogen/cre Medical atinine Center ratio Sodium level 138 135 - 145 09/24 [place] [facility] Body fluid 3.9 3.5 - 5.2 09/24 [place] potassium [facility] measurement [facility] Chloride 102 98 - 108 09/24 [place] measurement [facility] CO2 26 21 - 32 09/24 [place] [facility] Anion gap 13.9 12 - 09/24 [place] measurement [facility] Calcium 8.7 8.6 - 10.0 09/24 [place] level /2017 [facility] Total 7.1 6.6 - 8.7 09/24 [place] protein [facility] Albumin 3.7 3.5 - 5.2 09/24 [place] [facility] Globulin ser 3.4 09/24 [place] [facility] Albumin-glob 1.1 >1.0 09/24 [place] ulin ratio /2017 [facility] Bilirubin null 0.0 - 1.2 09/24 [place] total [facility] AST 21 15 - 32 09/24 [place] [facility] ALT (SGPT) 15 0 - 33 09/24 [place] ser/plas /2018 [facility] Amylase 149 28 - 100 09/24 [place] serum [facility] Lipase 89 13 - 60 09/24 [place] [facility] ALP ser/plas 118 35 - 105 09/24 [place] [facility] Glucose 90 70 - 110 09/18[place] blood [facility] fingerstick [facility] Glucose 90 70 - 110 09/18 [place] blood [facility] fingerstick [facility] Center Glucose 90 70 - 110 09/18 [place] blood [facility] fingerstick [facility] Neutrophil 55 37.0 - 11/29 [place] count 80.0 /2017 [facility] Platelet NORMAL RBC NORMAL 09/18 [place] morphology MORPH. RBC. [facility] Lymphocyte 38 10 - 50 09/18 [place] percentage [facility] Hematocrit 37.7 34.0 - 09/18 [place] 50.0 /2017 [facility] Blood 6 0 - 12 09/18[place] monocytes [facility] manual count Medical (number/volu Center me) Mean 25.1 26.2 - 09/18 [place] corpuscular 33.4 [facility] hemoglobin Medical ([facility]) Center determinatio n Phosphorus 4.3 2.5 - 4.5 09/18 [facility] Magnesium 1.9 1.6 - 2.6 09/18 [place] /2018 [facility] Automated ADEQUATE ADEQUATE 09/18a blood [facility] platelet Medical count Center (count/volum e) Automated NORMAL NORMAL 09/18a blood [facility] platelet Medical count Center (count/volum e) Blood band 57.6 44.4 - 09/18a neutrophils/ 80.[address] leukocytes Center Body fluid 33.6 10.0 - 09/18 [place] lymphocytes/ 50.[address] leukocytes Center [place] % 7.1 3.6 - 09/18 [place] 12.04 [facility] Eosinophil % 0.3 0.0 - 5.41 09/18 [facility] Basophil % 1.4 0.0 - 0.79 09/18 [facility] Phosphorus 4.3 2.5 - 4.5 09/18agord [facility] Lymphocyte 38 10 - 50 09/18 [place] percentage [facility] Blood 6 0 - 12 09/18 [place] monocytes [facility] manual count Medical (number/volu Center me) Basophil % 1 0 - 3 09/18 [place] manual [facility] Platelet NORMAL RBC NORMAL 09/18a morphology MORPH. RBC. [facility] Automated ADEQUATE ADEQUATE 09/18 blood [facility] platelet Medical count Center (count/volum e) Automated NORMAL NORMAL 09/18 blood [facility] platelet Medical count Center (count/volum e) Serum or 103 74 - 106 09/18rda plasma [facility] glucose Medical measurement Center (mass/volume ) Serum or 14 - 09/18 plasma urea [facility] nitrogen Medical measurement Center (mass/volume ) Osmolality 276 280 - 300 09/18[place] ser 2018 [facility] Creatinine 1.1 0.50 - 09/18[place] measurement 0.90 [facility] Estimated null 09/18 glomerular [facility] filtration Medical rate (GFR) Center determinatio n Serum or 12.7 12 - 09/18a plasma urea [facility] nitrogen/cre Medical atinine Center ratio Sodium level 138 135 - 145 09/18 [facility] Potassium 3.8 3.5 - 5.2 09/18[place] [facility] Chloride 100 98 - 108 09/18 [place] measurement [facility] CO2 25 21 - 32 09/18[place] [facility] Anion gap 16.8 12 - 20 09/18[place] measurement [facility] Calcium 9.1 8.6 - 10.0 09/18[place] level [facility] Phosphorus 4.3 2.5 - 4.5 09/18 [place] [facility] Magnesium 1.9 1.6 - 2.6 09/18 [place] [facility] Total 7.4 6.6 - 8.7 09/18a protein [facility] Albumin 3.9 3.5 - 5.2 09/18[place] [facility] Globulin ser 3.5 09/18[place] [facility] Albumin-glob 1.1 >1.0 09/18 ulin ratio [facility] Bilirubin null 0.0 - 1.2 09/18a total /2018 [facility] AST 13 15 - 32 09/18 [place] [facility] ALT (SGPT) 10 0 - 33 09/18[place] ser/plas [facility] Lipase 60 13 - 60 09/18 [facility] ALP ser/plas 108 35 - 105 09/18 [place] [facility] Medical Center Magnesium 1.9 1.6 - 2.6 09/18 [place] /2017 [facility] Amylase 85 28 - 100 09/17[place] serum [facility] Hemoglobin 6.0 4.0 - 6.0 09/17 [place] A1c [facility] Cholesterol 215 150 - 200 09/17[place] [facility] Triglyceride 65 <150 09/17 [place] s level 2018 [facility] HDL 79 >65 09/17[place] [facility] LDL 129 <100 09/17 [place] cholesterol, [facility] direct [facility] Cholesterol/ 2.721 09/17rda HDL ratio [facility] Hemoglobin 6.0 4.0 - 6.0 09/17[place] A1c [facility] Hemoglobin 6.0 4.0 - 6.0 09/17[place] A1c [facility] Cholesterol 215 150 - 200 09/17agord [facility] Triglyceride 65 <150 09/17[place] s level [facility] HDL 79 >65 09/17[place]ord [facility] LDL 129 <100 09/17[place] cholesterol, /2018 [facility] direct Medical Center Cholesterol/ 2.721 09/17 [place] HDL ratio /2018 [facility] Manual blood 2 0 - 3 09/17a band Regional neutrophils Medical form/100 Center leukocytes Atypical 1 0 09/17a lymphocyte [facility] percentage Medical Center Erythrocyte 1+ 09/17[place] rouleaux [facility] microscopic Medical examination Center Atypical 1 0 09/17[place] lymphocyte 2018 [facility] percentage Medical Center Erythrocyte 1+ 09/17[place] rouleaux [facility] microscopic Medical examination Center Manual blood 2 0 - 3 09/17[place]da band [facility] neutrophils Medical form/100 Center leukocytes Atypical 1 0 09/17[place] lymphocyte 2018 [facility] percentage Medical Center Erythrocyte 1+ 09/17[place] rouleaux [facility] microscopic Medical examination Center Color of LIGHT 09/16 Urine by YELLOW [facility] Auto Medical Center Urine CLEAR CLEAR 11/27 [place] appearance /2017 [facility] determinatio Medical n Center Glucose 1+ (70 NEGATIVE 09/16 [place] [Presence] mg/dL) Regional in Urine by Medical Automated Center test strip Urine total NEGATIVE NEGATIVE 09/16 [place] bilirubin Regional measurement Medical (mass/volume Center ) Ketones NEGATIVE NEGATIVE 09/16 [place] [Mass/volume /2018 [facility] ] in Urine Medical by Automated Center test strip Specific 1.009 1.003 - 09/16 [place] gravity of 1.030 [facility] Urine by Medical Automated Center test strip Urine blood NEGATIVE NEGATIVE 09/16 [place] detection by [facility] dipstick Medical Center Urine pH 7.000 5 - 9 09/16 [place] measurement /2017 [facility] Medical [place] Urine NEGATIVE NEGATIVE 09/16 [place] protein test [facility] by dipstick Medical Center Urine NORMAL 0.2 - 1.0 09/16 [place] urobilinogen /2017 [facility] detection Medical [place] Nitrite ur NEGATIVE NEGATIVE 09/16 [place] dipstick /2017 [facility] Medical [place] Urine NEGATIVE NEGATIVE 09/16 [place] leukocyte /2017 [facility] esterase Medical detection by Center automated test strip RBC count ur null 0 - 5 09/16 [place] auto /2017 [facility] Medical Center Leukocytes null 0 - 5 09/16 [place] [#/area] in [facility] Urine Medical sediment by Center Automated count Epithelial null 0 - 5 09/16a cells Regional detection in Medical urine Center sediment by light microscopy Bacterial None None 09/16 [place] urine Detected Detect [facility] culture Medical Center Automated None None 09/16 [place] urine Detected Detect Regional sediment Medical casts Center (number/area ) Urine NO 09/16 [place] Culture /2017 [facility] Reflexed Medical Center Eosinophil 0 0 - 7 09/16 [place] count /2017 [facility] Medical Center Blood 1+ 09/16 [place] anisocytosis /2017 [facility] detection Medical [place] Toxic OCCASSIONA 09/16 [place] leukocyte L /2017 [facility] granulation Medical detection Center Hypersegment 1+ 09/16 [place] ed /2018 [facility] neutrophil Medical count Center Toxic OCCASSIONA 09/16 [place] leukocyte L [facility] granulation Medical detection Center Hypersegment 1+ 09/16 [place] ed /2017 [facility] neutrophil Medical count Center Eosinophil 0 0 - 7 09/16 [place] count /2017 [facility] Blood 1+ 09/16 [place] anisocytosis /2017 [facility] Medical [place] Toxic OCCASSIONA 09/16 [place] leukocyte L /2017 [facility] granulation Medical detection Center Hypersegment 1+ 09/16 [place] ed /2017 [facility] neutrophil Medical count Center Laboratory White Blood 14.2 K/uL 4.3 - 10.9 12/[address] [facility] [address] Studies Count /2017 [facility] Red Cell 17.6 % 12.1 - 12/[address] [facility] [address] Studies Distribution 15.2 [facility] [place] [facility] Red Blood 5.87 M/uL 3.86 - 12/[address] [facility] [address] Studies Count 4.86 [facility] Platelet 310 K/uL 152 - 406 12/[address] [facility] [address] Studies Count /2017 [facility] Neutrophils 50.6 % 41.7 - 12/[address] [facility] [address] Studies % 73.7 /2017 [facility] Monocytes % 8.9 % 3.3 - 12.3 12/[address] [facility] [address] Studies /2018 [facility] Mean 8.9 fL 7.6 - 11.3 12/[address] [facility] [address] Studies Platelet /2017 [facility] [place] [facility] Mean 71.7 fL 80 - 100 12/[address] [facility] [address] Studies Corpuscular /2017 [facility] [place] [facility] Mean 31.9 g/dL 32.0 - 12/[address] [facility] [address] Studies Corpuscular 36.0 [facility] Hemoglobin [place] [facility] Mean 22.9 pg 27.0 - 12/[address] [facility] [address] Studies Corpuscular 35.0 [facility] Hemoglobin [place] [facility] Lymphocytes 37.9 % 15.3 - 12/[address] [facility] [address] Studies % 44.8 /2017 [facility] Hemoglobin 13.4 g/dL 12.0 - 12/[address] [facility] [address] Studies 15.0 [facility] Hematocrit 42.1 % 36.0 - 12/[address] [facility] [address] Studies 45.0 [facility] Eosinophils 2.1 % 0 - 4.4 12/[address] [facility] [address] Studies % /2018 [facility] Basophils % 0.5 % 0 - 1.3 12/[address] [facility] [address] Studies /2018 [facility] Absolute 7.2 K/uL 1.8 - 8.0 12/[address] [facility] [address] Studies Neutrophil /2018 [facility] Absolute 1.3 K/uL 0.1 - 1.3 12/[address] [facility] [address] Studies Monocytes /2017 [facility] ([facility] [place] [facility] Absolute 5.4 K/uL 0.7 - 4.9 12/[address] [facility] [address] Studies Lymphocytes /2017 [facility] (CBC[facility] [place] [facility] Absolute 0.3 K/uL 0 - 0.5 12/[address] [facility] [address] Studies Eosinophils /2017 [facility] - (CBC) [facility] Absolute 0.1 K/uL 0 - 0.5 12/18 [facility] [address] Studies Basophils [facility] - (CBC) [facility] Total 0.4 mg/dL 0.3 - 1.2 12/18 [facility] [address] Studies Bilirubin /2017 [facility] Sodium Level 138 mEq/L 135 - 145 12/18 [facility] [address] Studies /2018 [facility] Serum Total 7.2 g/dL 6.0 - 8.3 12/18 [facility] [address] Studies Protein /2017 [facility] Potassium 3.9 mEq/L 3.6 - 5.0 12/18 [facility] [address] Studies Level /2018 [facility] Phosphorus 4.5 mg/dL 2.5 - 4.3 12/18 [facility] [address] Studies Level /2017 [facility] Magnesium 1.8 mg/dL 1.8 - 2.5 12/18 [facility] [address] Studies Level /2018 [facility] Glucose 93 mg/dL 65 - 120 12/18 [facility] [address] Studies Level /2018 [facility] Globulin 3.7 g/dL 2.3 - 3.5 12/18 [facility] [address] Studies /2017 [facility] Estimat null 90 12/18 [facility] [address] Studies Glomerular /2017 [facility] - Filtration [facility] Creatinine 0.74 mg/dL 0.44 - 12/18 [facility] [address] Studies 1.00 [facility] Chloride 104 mEq/L 101 - 111 12/18 [facility] [address] Studies Level /2018 [facility] Carbon 27 mEq/L 21 - 31 12/18 [facility]. Studies Dioxide /2017 [facility] - Level [facility] Calcium 9.1 mg/dL 8.5 - 10.5 12/18 [facility]. Studies Level /2017 [facility] Blood Urea 10 mg/dL 6 - 20 12/18 [facility]. Studies Nitrogen /2017 [facility] Aspartate 18 IU/L 10 - 42 12/18 [facility]. Studies Amino Transf /2017 [facility] - (AST/SGOT) [facility] Alkaline 108 IU/L 42 - 121 12/18 [facility]. Studies Phosphatase /2017 [facility] Albumin/Glob 0.9 1.1 - 1.8 12/18 [facility]. Studies ulin Ratio /2017 [facility] Albumin 3.5 g/dL 3.2 - 5.5 12/18 [facility]. Studies /2017 [facility] Alanine 10 IU/L 10 - 60 12/18 [facility] Studies Aminotransfe /2017 [facility] - rase [facility] (ALT/SGPT) Laboratory Urine pH 6.0 12/17 [facility]. Studies /2017 [facility] Urine Total Urine 12/17 [facility] Studies Protein Total /2017 [facility] - Protein [facility] Urine null 12/17 [facility]. Studies Specific /2017 [facility] - Mertens [facility] Urine Urine 12/17 [facility] Studies /2017 [facility] - Test Test [facility] Urine Urine 12/17 [facility] Studies Nitrite Nitrite /2017 [facility] Urine Urine 12/17 [facility] Studies Leukocyte Leukocyte /2017 [facility] - Esterase Esterase [facility] Urine Urine 12/17 [facility] Studies Ketones Ketones /2017 [facility] Urine Urine 12/17 [facility] Studies Glucose Glucose /2017 [facility] Urine Blood Urine 12/17 [facility]. Studies Blood /2017 [facility] Blood Blood 12/17 [facility]. Studies Morphology Morphology /2017 [facility] - Comment Comment [facility] Creatine 0.6 ng/ml 0.3 - 4.0 12/17 [facility] Studies Kinase MB /2017 [facility] B-Type 31 pg/ml 12/[address] [facility] [address] Studies Natriuretic /2018 [facility] - Peptide [facility] Rapid null 12/17 [facility]. Studies Troponin I [facility] Creatine 86 IU/L 22 - 269 12/17 [facility] [address] Studies Kinase [facility] Prothrombin 13.4 9.5 - 12.5 12/17 [facility] [address] Studies Time SECONDS [facility] - [facility] INR 1.13 12/17 [facility]. Studies Internationa [facility] - l Normalized [facility] Activated 27.4 24.3 - 12/17 [facility]. Studies Partial SECONDS 36.9 [facility] - Thromboplast [facility] Urine WBC null 12/03 [facility] [address] Studies [facility] Urine null 12/03 [facility]. Studies Squamous [facility] - Epithelial [facility] Urine RBC Urine RBC 12/03 [facility] [address] Studies [facility] - [facility] Urine Urine 12/03 [facility]. Studies Culture Culture [facility] - Reflexed Reflexed [facility] Urine null 12/03 [facility]. Studies Bacteria [facility] Direct 0.1 mg/dL 0 - 0.2 12/03 [facility]. Studies Bilirubin [facility] Amylase 99 U/L 28 - 100 12/[address] [facility] [address] Studies Level /2017 [facility] Lipase 31 U/L 22 - 51 12/[address] [facility] [address] Studies [facility] Transferrin 6.6 % 20.0 - 11/26 [facility] [address] Studies % Saturation 50.0 [facility] Transferrin 291 mg/dL 192 - 382 11/[address] [facility] [address] Studies [facility] Total Iron 407 ug/dL 250 - 460 11/[address] [facility] [address] Studies Binding [facility] - Capacity [facility] Iron Level 27.0 ug/dL 28 - 170 11/26 [facility]. Studies [facility] Ferritin 6.7 ng/ml 11.0 - 11/26 [facility]. Studies 306.8 [facility] Urine Mucus Urine 10/[address] [facility] [address] Studies Mucus [facility] C[facility]IAC BNP 13 pg/mL <=100 04/13 [facility] ENZYMES pg/mL /2016 [facility] ELECTROLYT AGAP 10.8 meq/L 10.0 - 04/13 ES 20.0 [facility] ELECTROLYT eGFR 95 04/13 Result Comment: The eGFR is calculated using the CKD-EPI formula. In most young, healthy individuals the eGFR will be >90 mL/ min/1.73m2. The eGFR declines with age. An eGFR of 60-89 may be normal in [facility] mL/min/1.7 some populations, particularly the elderly, for whom the CKD-EPI formula has not been extensively validated. Use of the eGFR is not recommended in the following populations: [facility] 3m2 Individuals with unstable creatinine concentrations, including patients and those with serious co-morbid conditions. Patients with extremes in muscle mass or diet. The data above are obtained from the National Kidney Disease Education Program (NKDEP) which additionally recommends that when the eGFR is used in patients with extremes of body mass index for purposes of drug dosing, the eGFR should be multiplied by the estimated BMI. ELECTROLYT CO2 29 meq/L 24 - 32 04/13 [facility] ELECTROLYT Calcium Lvl 9.0 mg/dL 8.5 - 10.5 04/13 [facility] ELECTROLYT Potassium 3.8 meq/L 3.5 - 5.1 04/13 ES Lvl [facility] ELECTROLYT Creatinine 0.80 mg/dL 0.50 - 04/13 [facility] Lvl 1. [facility] ELECTROLYT Sodium Lvl 135 meq/L 135 - 145 04/13 [facility] ELECTROLYT Chloride Lvl 99 meq/L 95 - 109 04/13 [facility] ELECTROLYT Glucose Lvl 109 mg/dL 70 - 99 04/13 [facility] ELECTROLYT BUN 12 mg/dL 7 - 04/13 [facility] CARDIAC BNP 9 pg/mL <=100 04/12 ENZ[facility]ES pg/mL /2016 [facility] HEMATOLOGY WBC 19.3 K/CMM 3.7 - 10.4 04/12 [facility] HEMATOLOGY Hgb 10.6 g/dL 12.0 - 04/12 16.0 [facility] HEMATOLOGY RBC 4.44 M/CMM 4.20 - 04/12 5.40 [facility] HEMATOLOGY MCV 73.8 fL 80.0 - 04/12 98.0 [facility] HEMATOLOGY Hct 32.7 % 36.0 - 04/12 MH 48.0 /2016 [facility] MCH 23.8 pg 27.0 - 04/12 MH 31.0 [facility] RDW 15.6 % 11.5 - 04/12 MH 14.5 [facility] MCHC 32.3 g/dL 32.0 - 04/12 MH 36.0 /2016 [facility] MPV 8.8 fL 7.4 - 10.4 04/12 [facility] Platelet 350 K/CMM 133 - 450 04/12 [facility] Basophils # 0.1 K/CMM 0.0 - 0.2 04/12 [facility] Microcyte 2+ None Seen 04/12 [facility] *ABN* (04/12/17 6:52 PM) HEMATOLOGY Eosinophils 0.2 K/CMM 0.0 - 0.5 04/12 [facility] Monocytes # 1.6 K/CMM 0.0 - 0.8 04/12 [facility] Lymphocytes 5.0 K/CMM 1.0 - 5.5 04/12 [facility] Basophils 0.6 % 0.0 - 1.0 04/12 [facility] Segs-Bands # 12.4 K/CMM 1.5 - 8.1 04/12 [facility] Segs 64.1 % 45.0 - 04/12 75.0 [facility] Monocytes 8.4 % 2.0 - 12.0 04/12 [facility] Lymphocytes 25.7 % 20.0 - 04/12 40.0 [facility] Eosinophils 1.2 % 0.0 - 4.0 04/12 [facility] Chest 1 v Chest 1 v Clinical Indication:56 years Female with PICC Line Placement - new right picc 04/12 - for - [facility] Placement Placement DX Comparison: Chest x-ray 04/12/2017 DX Read by: Alessandro Hardwick MD Dictated Date/time: 04/12/17 19:52 FINDINGS: Electronically Signed by: Alessandro Hardwick MD 04/12/17 19:53 FINAL REPORT Lines: Right PICC with catheter tip at the low SVC. The single frontal chest radiograph shows normal lung volumes. No interstitial or airspace opacities. No pleural effusion. No pneumothorax. Cardiac silhouette is normal. Pulmonary vasculature is normal. The trachea is midline. There are no acute osseous abnormalities noted. IMPRESSION: 1. Right PICC in appropriate position. 2. No other significant change from chest x-ray earlier on same date. URINE AND UA Color Ltyellow 04/12 STOOL [facility] URINE AND UA null 0.1 - 1.0 04/12 [facility] Urobilinogen /2016 [facility] URINE AND Micro? Performed 04/12 STOOL [facility] *NA* (04/12/17 1:37 PM) URINE AND UA Leuk Est Negative Negative 04/12 STOOL [facility] (04/12/17 1:37 PM) URINE AND UA Protein Negative Negative 04/12 [facility] mg/dL mg/dL [facility] URINE AND UA Bili Negative Negative 04/12 STOOL [facility] *NA* (04/12/17 1:37 PM) URINE AND UA pH 7.0 5.0 - 8.0 04/12 [facility]OL [facility] URINE AND UA Turbidity Slight Clear 04/12 STOOL [facility] *ABN* (04/12/17 1:37 PM) URINE AND UA Spec Grav 1.006 <=1.030 04/12 STOOL [facility] URINE AND UA Blood Negative Negative 04/12 STOOL [facility] (04/12/17 1:37 PM) URINE AND UA Nitrite Negative Negative 04/12 STOOL [facility] (04/12/17 1:37 PM) URINE AND UA Glucose Negative Negative 04/12 [facility] mg/dL mg/dL /2016 [facility] URINE AND UA Ketones Negative Negative 04/12 [facility] mg/dL mg/dL /2016 [facility] CARDIAC Troponin-I null 0.00 - 04/12 ENZYMES 0.40 /2016 [facility] CARDIAC CK MB null 0.5 - 3.6 04/12 ENZYMES [facility] CARDIAC Total CK 97 unit/L 12 - 191 04/12 ENZYMES [facility] ELECTROLYT AGAP 12.9 meq/L 10.0 - 04/12 ES 20.0 [facility] ELECTROLYT Calcium Lvl 8.8 mg/dL 8.5 - 10.5 04/12 ES [facility] ELECTROLYT CO2 25 meq/L 24 - 32 04/12 ES [facility] ELECTROLYT eGFR 83 04/12 Result Comment: The eGFR is calculated using the CKD-EPI formula. In most young, healthy individuals the eGFR will be >90 mL/ min/1.73m2. The eGFR declines with age. An eGFR of 60-89 may be normal in [facility] mL/min/1. some populations, particularly the elderly, for whom the CKD-EPI formula has not been extensively validated. Use of the eGFR is not recommended in the following populations: [place] [id number] Individuals with unstable creatinine concentrations, including patients and those with serious co-morbid conditions. Patients with extremes in muscle mass or diet. The data above are obtained from the National Kidney Disease Education Program (NKDEP) which additionally recommends that when the eGFR is used in patients with extremes of body mass index for purposes of drug dosing, the eGFR should be multiplied by the estimated BMI. ELECTROLYT Potassium 3.9 meq/L 3.5 - 5.1 04/12 ES Lvl /2016 [facility] ELECTROLYT Chloride Lvl 100 meq/L 95 - 109 04/12 ES [facility] ELECTROLYT Sodium Lvl 134 meq/L 135 - 145 04/12 [facility] ELECTROLYT Creatinine 0.90 mg/dL 0.50 - 04/12 [facility] Lvl 1.40 [facility] ELECTROLYT BUN 12 mg/dL 7 - 22 04/12 [facility] ELECTROLYT Glucose Lvl 94 mg/dL 70 - 99 04/12 [facility] Chest Chest 1view Patient Name: MARNIE KATHLEEN 04/12 - 1view DX - [facility] : 1960; Age: 56 years y/o Female MR: [id number] Read by: Minh Valdez MD Dictated Date/time: 04/12/17 14:59 Electronically Signed by: Minh Valdez MD 04/12/17 15:00 FINAL REPORT Study: Chest 1view DX 04/12/2017 11:46 AM CDT Ordering Physician: Clinical Indication: CHEST PAIN - CHEST PAIN; Comparison: 08/29/2016 1 view chest Lungs are clear. Cardiomediastinal silhouette normal. Pulmonary vasculature is normal. There is no pleural effusion or pneumothorax. No acute osseous abnormal bodies. Fusion hardware within the lower cervical spine is noted. IMPRESSION: No acute findings. SL: [id number] Spine Spine EXAM: MRI CERVICAL SPINE WITHOUT CONTRAST 12/18 - [facility] cervical cervical wo /2017 - [facility] contrast MRI DATE: 12/18/2016 This report was dictated by a District Wire Chief/Fellow. I have personally reviewed the images as contrast well as the Resident's interpretation and agree with the findings. MRI Read by: Alessandro Pabon MD Resident: Alessandro Pabon MD Dictated Date/time: 12/18/16 14:22 Referring physician: Estevan oMrelos MD Electronically Signed by: Nathan Carlson MD 12/18/16 17:21 FINAL REPORT INDICATION: Neck pain. CCervical disc degeneration, stenosis, cervical region. Sprain of ligaments of cervical spine, initial encounter. Additional history: Removal of hardware C5-C6, anterior diskectomy, arthrodesis, ABS 5-mm implant with DBM putty and reflex hybrid plate 16 mm and 12-mm revision screws x 2 and 12-mm fixed screw x 2 on 03/29/2010. COMPARISON: Magnetic resonance imaging cervical spine of 02/02/2010; and CTs cervical spine of 03/23/2016 and 12/18/2016. TECHNIQUE: Multiplanar MR imaging of the cervical spine, without contrast. FINDINGS: Straightening of the normal lordotic curvature of the cervical spine with minimal kyphosis centered at C5-C6. Anterior fusion with further incorporation of the interbody spacer at C3-C4 and with the int erbody carbon cage at C4-C5 are solid. There is an anterior plate with screws at C3, C4, and C5. There is interval removal of cervical screws and anterior side plate at C5-C6 since the MR of 02/02/2010. There is fusion of the C5 and C6 vertebral bodies. Vertebral bodies not involved with the spinal construct have normal height and marrow signal intensity. The C2-C3 disc and the C6 through T1 disc heights are mildly decreased with preserved T2 signal. Their adjacent endplates are normal. There is no Chiari malformation. The cervicomedullary junction is normal. The cervical cord signal intensity is normal. There is mild spinal canal stenosis from C3 through C6. Left neural foraminal stenosis at C4-C5 encroaching on the exiting C5 nerve root due to uncovertebral arthropathy. Left neural foraminal stenosis at C6-C7 encroaching on the left C7 exiting nerve root due to uncovertebral and facet arthropathy. There is no other neural foraminal stenosis in the cervical spine. IMPRESSION: 1. Solid anterior fusion of the C3-C6 vertebral bodies. 2. Left neural foraminal stenosis at C4-C5 and C6-C7 with encroachment on the exiting C5 and C7 nerve roots, respectively. 3. Mild degenerative disc disease at C2-C3 and C6-C7. Spine Spine EXAM: CT CERVICAL SPINE WITHOUT CONTRAST 12/18 - [facility] cervical - [facility] contrast CT DATE: 12/18/2016 This report was dictated by a District Wire Chief/Fellow. I have personally reviewed the images as contrast well as the Resident's interpretation and agree with the findings. CT Read by: Alessandro Pabon MD Resident: Alessandro Pabon MD Dictated Date/time: 12/18/16 16:36 Referring physician: Estevan Morelos MD Electronically Signed by: Nathan Carlson MD 12/18/16 17:22 FINAL REPORT INDICATION: Neck pain. CCervical disc degeneration, stenosis, cervical region. Sprain of ligaments of cervical spine, initial encounter. Additional history: Removal of hardware C5-C6, anterior diskectomy, arthrodesis, ABS 5-mm implant with DBM putty and reflex hybrid plate 16 mm and 12-mm revision screws x 2 and 12-mm fixed screw x 2 on 03/29/2010. COMPARISON: MRIs cervical spine of 02/02/2010 and 12/18/2016; and CT cervical spine of 03/23/2016. TECHNIQUE: Multiplanar MR imaging of the cervical spine, without contrast. FINDINGS: Straightening of the normal lordotic curvature of the cervical spine with minimal kyphosis centered at C5-C6. Anterior fusion with further incorporation of the interbody spacer at C3-C4 and with the int erbody carbon cage at C4-C5 are solid. There is an anterior plate with screws at C3, C4, and C5. There is interval removal of cervical screws and anterior side plate at C5-C6 since the MR of 02/02/2010. There is fusion of the C5 and C6 vertebral bodies. There is mild disc height loss at C2-C3 and C6-C7. There is mild spinal canal stenosis from C3 through C6. Left neural foraminal stenosis at C4-C5 due to uncovertebral arthropathy. Left neural foraminal stenosis at C6-C7 due to uncovertebral and facet arthropathy. The remainder of cervical neural foramina are otherwise unremarkable. IMPRESSION: 1. Solid anterior fusion of the C3-C6 vertebral bodies. 2. Left neural foraminal stenosis at C4-C5 and C6-C7 with encroachment on the exiting C5 and C7 nerve roots, respectively. 3. Mild degenerative disc disease at C2-C3 and C6-C7. CHEM PANEL A/G Ratio 0.9 0.7 - 1.6 09/19 [facility] CHEM PANEL Globulin 3.8 g/dL 2.7 - 4.2 09/19 [facility] CHEM PANEL B/C Ratio 13 6 - 25 09/19 [facility] CHEM PANEL AGAP 15.4 meq/L 10.0 - 09/19 [facility] 20.0 [facility] CHEM PANEL eGFR 65 09/19 Result Comment: The eGFR is calculated using the CKD-EPI formula. In most young, healthy individuals the eGFR will be >90 mL/ min/1.73m2. The eGFR declines with age. An eGFR of 60-89 may be normal in mL/min/1. some populations, particularly the elderly, for whom the CKD-EPI formula has not been extensively validated. Use of the eGFR is not recommended in the following populations: [place] [address] Individuals with unstable creatinine concentrations, including patients and those with serious co-morbid conditions. Patients with extremes in muscle mass or diet. The data above are obtained from the National Kidney Disease Education Program (NKDEP) which additionally recommends that when the eGFR is used in patients with extremes of body mass index for purposes of drug dosing, the eGFR should be multiplied by the estimated BMI. CHEM PANEL Bili Total 0.2 mg/dL 0.2 - 1.3 09/19 [facility] CHEM PANEL Alk Phos 101 unit/L 39 - 136 09/19 [facility] PAN[facility] BUN 14 mg/dL 7 - 22 09/19 [facility]M PANEL Glucose Lvl 133 mg/dL 70 - 99 09/19 [facility]M PANEL AST 8 unit/L 0 - 37 09/19 [facility]M PANEL Chloride Lvl 98 meq/L 95 - 109 09/19 [facility]M PANEL CO2 29 meq/L 24 - 32 09/19 [facility] PANEL Total 7.1 g/dL 6.4 - 8.4 09/19 [facility] CHEM PANEL Albumin Lvl 3.3 g/dL 3.5 - 5.0 09/19 [facility] CHEM PANEL Calcium Lvl 9.1 mg/dL 8.5 - 10.5 09/19 [facility] CHEM PANEL ALT 18 unit/L 0 - 65 09/19 [facility] CHEM PANEL Potassium 3.4 meq/L 3.5 - 5.1 09/19 MH Lvl /2015 [facility] CHEM PANEL Creatinine 1.10 mg/dL 0.50 - 09/19 MH Lvl 1.40 [facility] CHEM PANEL Sodium Lvl 139 meq/L 135 - 145 09/19 [facility] CHEM PANEL Lipase Lvl 281 unit/L 73 - 393 09/19 [facility] CHEM PANEL Amylase Lvl 95 unit/L 25 - 115 09/19 [facility] HEMATOLOGY Eosinophils 0.0 % 0.0 - 4.0 09/19 [facility] HEMATOLOGY Target Cell Slight 09/19 [facility] HEMATOLOGY Plt Morph Normal 09/19 [facility] (09/19/16 3:07 PM) HEMATOLOGY Bands 1.0 % 0.0 - 11.0 09/19 [facility] HEMATOLOGY Segs 81.0 % 45.0 - 09/19 MH 75.0 [facility] HEMATOLOGY Monocytes 1.0 % 2.0 - 12.0 09/19 [facility] HEMATOLOGY Lymphocytes 17.0 % 20.0 - 09/19 40.0 [facility] HEMATOLOGY Lymphocytes 4.7 K/CMM 1.0 - 5.5 09/19 [facility] HEMATOLOGY Segs-Bands # 22.8 K/CMM 1.5 - 8.1 09/19 [facility] HEMATOLOGY Basophils 0.0 % 0.0 - 1.0 09/19 [facility] HEMATOLOGY Eosinophils 0.0 K/CMM 0.0 - 0.5 09/19 [facility] HEMATOLOGY Monocytes # 0.3 K/CMM 0.0 - 0.8 09/19 [facility] HEMATOLOGY Microcyte 2+ None Seen 09/19 [facility] *ABN* (09/19/16 3:07 PM) HEMATOLOGY Basophils # 0.0 K/CMM 0.0 - 0.2 09/19 [facility] HEMATOLOGY MPV 8.1 fL 7.4 - 10.4 09/19 [facility] HEMATOLOGY Platelet 396 K/CMM 133 - 450 09/19 [facility] HEMATOLOGY WBC 27.8 K/CMM 3.7 - 10.4 09/19 MH /2015 [facility] Hgb 9.7 g/dL 12.0 - 09/19 MH 16.0 /2015 [facility] RBC 4.10 M/CMM 4.20 - 09/19 MH 5.40 /2016 [facility] Hct 30.0 % 36.0 - 09/19 MH 48.0 /2016 [facility] MCHC 32.2 g/dL 32.0 - 09/19 MH 36.0 /2015 [facility] MCH 23.6 pg 27.0 - 09/19 MH 31.0 /2016 [facility] MCV 73.3 fL 80.0 - 09/19 MH 98.0 /2015 [facility] HEMATOLOGY RDW 17.2 % 11.5 - 09/19 MH 14.5 /2015 [facility] PT 14.2 s 12.0 - 09/19 14.7 /2015 [facility] PTT 20.8 s 22.9 - 09/19 MH 35.8 /2015 [facility] INR 1.08 0.85 - 09/19 1.17 /2015 [facility] Abdomen/Pe Abdomen/Pelv Study: Abdomen/Pelvis w IV contrast CT 09/19 - lvis w IV is w IV /2015 - [facility] contrast contrast CT CT Clinical Indication: Generalized abdominal pain Read by: Pierre Delgado MD Dictated Date/time: 09/19/16 18:17 Electronically Signed by: Pierre Delgado MD 09/19/16 18:21 FINAL REPORT Comparison: CT abdomen and pelvis from 02/15/2016 TECHNIQUE: Multiple axial CT images of the abdomen and pelvis were acquired following the administration of intravenous contrast. Sagittal and coronal reformatted images were performed. CT Radiation Dose DLP 1756.15 mGy-cm FINDINGS: The visualized lung bases are clear bilaterally. Patient is status post cholecystectomy. Liver, pancreas, spleen, adrenal glands, and kidneys are normal in appearance. No intrahepatic or extrahepatic biliary duct dilatation is seen. Urinary bladder is well-distended. Patient is status post hysterectomy. The visualized hollow viscera are normal in appearance. The appendix is not clearly visualized. No free air, free fluid, or pathologic is seen. Mild arterial calcifications are noted. Degenerative changes of the lower lumbar spine are seen. Superficial soft tissues are normal. IMPRESSION: 1. No acute intra-abdominal/pelvic abnormality. SL: [facility] HEMATOLOGY MPV 8.3 fL 7.4 - 10.4 09/03 /2015 [facility] HEMATOLOGY RBC 3.97 M/CMM 4.20 - 09/03 5.40 /2015 [facility] HEMATOLOGY Hgb 9.2 g/dL 12.0 - 09/03 MH 16.0 [facility] HEMATOLOGY Hct 29.5 % 36.0 - 09/03 MH 48.0 /2015 [facility] HEMATOLOGY WBC 17.6 K/CMM 3.7 - 10.4 09/03 [facility] HEMATOLOGY MCHC 31.4 g/dL 32.0 - 09/03 36.0 /2015 [facility] HEMATOLOGY RDW 17.3 % 11.5 - 09/03 14.5 [facility] HEMATOLOGY MCV 74.2 fL 80.0 - 09/03 98.0 /2015 [facility] HEMATOLOGY MCH 23.3 pg 27.0 - 09/03 31.0 [facility] HEMATOLOGY Platelet 337 K/CMM 133 - 450 09/03 [facility] HEMATOLOGY Eosinophils 0.0 K/CMM 0.0 - 0.5 09/03 MH # /2015 [facility] HEMATOLOGY Monocytes # 1.6 K/CMM 0.0 - 0.8 09/03 [facility] HEMATOLOGY Basophils # 0.1 K/CMM 0.0 - 0.2 09/03 [facility] HEMATOLOGY Lymphocytes 6.0 K/CMM 1.0 - 5.5 09/03 MH # /2015 [facility] HEMATOLOGY Segs-Bands # 9.8 K/CMM 1.5 - 8.1 09/03 [facility] HEMATOLOGY Microcyte 2+ None Seen 09/03 [facility] *ABN* (09/03/16 3:03 AM) HEMATOLOGY Basophils 0.8 % 0.0 - 1.0 09/03 [facility] HEMATOLOGY Lymphocytes 34.4 % 20.0 - 09/03 40.0 [facility] HEMATOLOGY Segs 55.6 % 45.0 - 09/03 75.0 [facility] HEMATOLOGY Eosinophils 0.2 % 0.0 - 4.0 09/03 [facility] HEMATOLOGY Monocytes 9.0 % 2.0 - 12.0 09/03 [facility] DRUG U Benzodia Negative Negative 09/02 SCREEN [facility] *NA* (09/02/16 3:33 PM) DRUG U Phencyc Negative Negative 09/02 SCREEN Scr [facility] *NA* (09/02/16 3:33 PM) DRUG UDS Note See Note 09/02 SCREEN [facility] (09/02/16 3:33 PM) DRUG U Cannab Scr Negative Negative 09/02 SCREEN [facility] *NA* (09/02/16 3:33 PM) DRUG U Opiate Scr Positive Negative 09/02 SCREEN [facility] *ABN* (09/02/16 3:33 PM) DRUG U Cocaine Negative Negative 09/02 SCREEN Scr [facility] *NA* (09/02/16 3:33 PM) DRUG U Ailyn Scr Negative Negative 09/02 SCREEN [facility] *NA* (09/02/16 3:33 PM) DRUG U Amph Scr Negative Negative 09/02 SCREEN [facility] *NA* (09/02/16 3:33 PM) URINE AND UA Nitrite Negative Negative 09/02 STOOL [facility] (09/02/16 3:33 PM) URINE AND UA Leuk Est Negative Negative 09/02 STOOL [facility] (09/02/16 3:33 PM) URINE AND UA Sq Epi Occasional Few /LPF 09/02 STOOL /LPF /2015 [facility] URINE AND UA null 0.1 - 1.0 09/02 STOOL Urobilinogen [facility] URINE AND UA Turbidity Clear Clear 09/02 STOOL [facility] (09/02/16 3:33 PM) URINE AND UA Color Light Yellow Yellow 09/02 STOOL [facility] *NA* (09/02/16 3:33 PM) URINE AND UA Spec Grav 1.018 <=1.030 09/02 STOOL [facility] URINE AND UA Bili Negative Negative 09/02 STOOL [facility] *NA* (09/02/16 3:33 PM) URINE AND UA Blood Negative Negative 09/02 STOOL [facility] (09/02/16 3:33 PM) URINE AND UA pH 6.0 5.0 - 8.0 09/02 STOOL [facility] URINE AND UA Protein Negative Negative 09/02 STOOL mg/dL mg/dL [facility] URINE AND UA Ketones Negative Negative 09/02 STOOL mg/dL mg/dL [facility] URINE AND UA Glucose Negative Negative 09/02 STOOL mg/dL mg/dL [facility] CHEM PANEL Bili Total 0.1 mg/dL 0.2 - 1.3 09/02 [facility] CHEM PANEL Alk Phos 117 unit/L 39 - 136 09/02 [facility] CHEM PANEL Total 7.2 g/dL 6.4 - 8.4 09/02 [facility] CHEM PANEL CO2 27 meq/L 24 - 32 09/02 [facility] CHEM PANEL Calcium Lvl 9.2 mg/dL 8.5 - 10.5 09/02 [facility] CHEM PANEL Chloride Lvl 102 meq/L 95 - 109 09/02 [facility] CHEM PANEL ALT 22 unit/L 0 - 65 09/02 [facility] CHEM PANEL Albumin Lvl 3.1 g/dL 3.5 - 5.0 09/02 [facility] CHEM PANEL AST 13 unit/L 0 - 37 09/02 [facility] CHEM PANEL eGFR 73 09/02 Result Comment: The eGFR is calculated using the CKD-EPI formula. In most young, healthy individuals the eGFR will be >90 mL/ min/1.73m2. The eGFR declines with age. An eGFR of 60-89 may be normal in mL/min/1.7 some populations, particularly the elderly, for whom the CKD-EPI formula has not been extensively validated. Use of the eGFR is not recommended in the following populations: [place] [address] Individuals with unstable creatinine concentrations, including patients and those with serious co-morbid conditions. Patients with extremes in muscle mass or diet. The data above are obtained from the National Kidney Disease Education Program (NKDEP) which additionally recommends that when the eGFR is used in patients with extremes of body mass index for purposes of drug dosing, the eGFR should be multiplied by the estimated BMI. CHEM PANEL Sodium Lvl 141 meq/L 135 - 145 09/02 [facility] CHEM PANEL BUN 9 mg/dL 7 - 22 09/02 [facility] CHEM PANEL Potassium 3.5 meq/L 3.5 - 5.1 09/02 Lvl [facility] CHEM PANEL Creatinine 1.00 mg/dL 0.50 - 09/02 Lvl 1.40 [facility] CHEM PANEL Glucose Lvl 89 mg/dL 70 - 99 09/02 [facility] CHEM PANEL Globulin 4.1 g/dL 2.7 - 4.2 09/02 [facility] CHEM PANEL B/C Ratio 9 6 - 25 09/02 [facility] CHEM PANEL AGAP 15.5 meq/L 10.0 - 09/02 20.0 [facility] CHEM PANEL A/G Ratio 0.8 0.7 - 1.6 09/02 [facility] CHEM PANEL Procalcitoni <0.05 0.00 - 09/02 n Lvl ng/mL 0.10 [facility] CHEM PANEL Amylase Lvl 54 unit/L 25 - 115 09/02 [facility] CHEM PANEL Lipase Lvl 182 unit/L 73 - 393 09/02 [facility] CHEM PANEL Lactic Acid 1.3 mMol/L 0.5 - 2.2 09/02 Lvl /2015 [facility] HEMATOLOGY PTT 25.1 s 22.9 - 09/02 35.8 [facility] HEMATOLOGY PT 13.3 s 12.0 - 09/02 14.7 [facility] HEMATOLOGY INR 0.99 0.85 - 09/02 1.17 [facility] HEMATOLOGY Platelet 339 K/CMM 133 - 450 09/02 [facility] HEMATOLOGY MPV 8.1 fL 7.4 - 10.4 09/02 [facility] HEMATOLOGY MCHC 31.5 g/dL 32.0 - 09/02 36.0 /2015 [facility] HEMATOLOGY RDW 17.0 % 11.5 - 09/02 14.5 [facility] HEMATOLOGY MCV 73.8 fL 80.0 - 09/02 98.0 /2015 [facility] HEMATOLOGY MCH 23.2 pg 27.0 - 09/02 31.0 [facility] HEMATOLOGY Hct 30.5 % 36.0 - 09/02 48.0 /2015 [facility] HEMATOLOGY Hgb 9.6 g/dL 12.0 - 09/02 16.0 [facility] HEMATOLOGY WBC 19.5 K/CMM 3.7 - 10.4 09/02 [facility] HEMATOLOGY RBC 4.14 M/CMM 4.20 - 09/02 5.40 /2015 [facility] HEMATOLOGY Lymphocytes 29.5 % 20.0 - 09/02 40.0 [facility] HEMATOLOGY Segs 61.3 % 45.0 - 09/02 75.0 [facility] HEMATOLOGY Basophils # 0.1 K/CMM 0.0 - 0.2 09/02 [facility] HEMATOLOGY Microcyte 2+ None Seen 09/02 [facility] *ABN* (11/13/16 12:10 PM) HEMATOLOGY Monocytes # 1.7 K/CMM 0.0 - 0.8 09/02 [facility] HEMATOLOGY Lymphocytes 5.7 K/CMM 1.0 - 5.5 09/02 # /2016 [facility] HEMATOLOGY Basophils 0.3 % 0.0 - 1.0 09/02 [facility] HEMATOLOGY Segs-Bands # 12.0 K/CMM 1.5 - 8.1 09/02 [facility] HEMATOLOGY Monocytes 8.7 % 2.0 - 12.0 09/02 [facility] HEMATOLOGY Eosinophils 0.2 % 0.0 - 4.0 09/02 [facility] ELECTROLYT AGAP 9.7 meq/L 10.0 - 08/31 ES 20.0 [facility] ELECTROLYT eGFR 83 08/31 Result Comment: The eGFR is calculated using the CKD-EPI formula. In most young, healthy individuals the eGFR will be >90 mL/ min/1.73m2. The eGFR declines with age. An eGFR of 60-89 may be normal in [facility] mL/min/1.7 some populations, particularly the elderly, for whom the CKD-EPI formula has not been extensively validated. Use of the eGFR is not recommended in the following populations: [facility] 3m2 Individuals with unstable creatinine concentrations, including patients and those with serious co-morbid conditions. Patients with extremes in muscle mass or diet. The data above are obtained from the National Kidney Disease Education Program (NKDEP) which additionally recommends that when the eGFR is used in patients with extremes of body mass index for purposes of drug dosing, the eGFR should be multiplied by the estimated BMI. ELECTROLYT Chloride Lvl 104 meq/L 95 - 109 08/31 ES [facility] ELECTROLYT Glucose Lvl 137 mg/dL 70 - 99 08/31 ES [facility] ELECTROLYT Calcium Lvl 8.5 mg/dL 8.5 - 10.5 08/31 ES [facility] ELECTROLYT CO2 29 meq/L 24 - 32 08/31 ES [facility] ELECTROLYT Potassium 3.7 meq/L 3.5 - 5.1 08/31 Result ES Comment: [facility] Specimen Slightly Hemolyzed. ELECTROLYT Sodium Lvl 139 meq/L 135 - 145 08/31 [facility] ELECTROLYT Creatinine 0.90 mg/dL 0.50 - 11 ES Lvl 1.40 /2015 [facility] ELECTROLYT BUN 6 mg/dL 7 - 22 08/31 ES /2015 [facility] HEMATOLOGY MCHC 32.8 g/dL 32.0 - 08/31 MH 36.0 /2015 [facility] HEMATOLOGY MCV 72.3 fL 80.0 - 08/31 MH 98.0 /2015 [facility] HEMATOLOGY MCH 23.7 pg 27.0 - 08/31 MH 31.0 /2015 [facility] HEMATOLOGY Hgb 8.9 g/dL 12.0 - 08/31 MH 16.0 /2015 [facility] HEMATOLOGY Hct 27.0 % 36.0 - 11 MH 48.0 /2015 [facility] HEMATOLOGY RBC 3.74 M/CMM 4.20 - 08/31 5.40 /2015 [facility] HEMATOLOGY WBC 18.9 K/CMM 3.7 - 10.4 08/31 /2015 [facility] HEMATOLOGY Platelet 289 K/CMM 133 - 450 08/31 /2015 [facility] MPV 7.7 fL 7.4 - 10.4 08/31 /2015 [facility] HEMATOLOGY RDW 16.7 % 11.5 - 08/31 14.5 /2015 [facility] HEMATOLOGY Segs 63.0 % 45.0 - 08/31 75.0 /2015 [facility] HEMATOLOGY Lymphocytes 26.5 % 20.0 - 08/31 40.0 /2015 [facility] HEMATOLOGY Monocytes 7.5 % 2.0 - 12.0 08/31 /2015 [facility] HEMATOLOGY Basophils 0.7 % 0.0 - 1.0 08/31 /2015 [facility] HEMATOLOGY Eosinophils 2.3 % 0.0 - 4.0 08/31 /2015 [facility] HEMATOLOGY Lymphocytes 5.0 K/CMM 1.0 - 5.5 08/31 MH # /2015 [facility] HEMATOLOGY Segs-Bands # 11.9 K/CMM 1.5 - 8.1 08/31 /2015 [facility] HEMATOLOGY Monocytes # 1.4 K/CMM 0.0 - 0.8 08/31 /2015 [facility] HEMATOLOGY Basophils # 0.1 K/CMM 0.0 - 0.2 08/31 /2015 [facility] HEMATOLOGY Eosinophils 0.4 K/CMM 0.0 - 0.5 08/31 # /2015 [facility] Microcyte 2+ None Seen 08/31 /2015 [facility] *ABN* (11/11/16 6:39 AM) CHEM PANEL eGFR 83 08/30 Result Comment: The eGFR is calculated using the CKD-EPI formula. In most young, healthy individuals the eGFR will be >90 mL/ min/1.73m2. The eGFR declines with age. An eGFR of 60-89 may be normal in mL/min/1. some populations, particularly the elderly, for whom the CKD-EPI formula has not been extensively validated. Use of the eGFR is not recommended in the following populations: [address] Individuals with unstable creatinine concentrations, including patients and those with serious co-morbid conditions. Patients with extremes in muscle mass or diet. The data above are obtained from the National Kidney Disease Education Program (NKDEP) which additionally recommends that when the eGFR is used in patients with extremes of body mass index for purposes of drug dosing, the eGFR should be multiplied by the estimated BMI. CHEM PANEL Chloride Lvl 101 meq/L 95 - 109 08/30 [facility] CHEM PANEL Sodium Lvl 137 meq/L 135 - 145 08/30 [facility] CHEM PANEL Potassium 3.6 meq/L 3.5 - 5.1 08/30 Result Lv Comment: [facility] Specimen Slightly Hemolyzed. CHEM PANEL BUN 6 mg/dL 7 - 22 08/30 [facility] CHEM PANEL Creatinine 0.90 mg/dL 0.50 - 08/30 Lvl 1.40 [facility] CHEM PANEL Calcium Lvl 8.8 mg/dL 8.5 - 10.5 08/30 [facility] CHEM PANEL CO2 29 meq/L 24 - 32 08/30 [facility] CHEM PANEL Glucose Lvl 102 mg/dL 70 - 99 08/30 [facility] CHEM PANEL AGAP 10.6 meq/L 10.0 - 08/30 20.0 [facility] HEMATOLOGY MCHC 31.8 g/dL 32.0 - 08/30 MH 36.0 [facility] HEMATOLOGY MCV 74.1 fL 80.0 - 08/30 98.0 [facility] HEMATOLOGY RDW 16.5 % 11.5 - 08/30 MH 14. [facility] HEMATOLOGY Platelet 307 K/CMM 133 - 450 08/30 [facility] HEMATOLOGY MPV 8.1 fL 7.4 - 10.4 08/30 [facility] MCH 23.5 pg 27.0 - 08/30 31.0 /2015 [facility] HEMATOLOGY WBC 19.0 K/CMM 3.7 - 10.4 11 /2015 [facility] HEMATOLOGY Hct 30.3 % 36.0 - 11 48.0 /2015 [facility] HEMATOLOGY RBC 4.08 M/CMM 4.20 - 11 MH 5.40 /2015 [facility] HEMATOLOGY Hgb 9.6 g/dL 12.0 - 08/30 MH 16.0 /2015 [facility] HEMATOLOGY Eosinophils 2.0 % 0.0 - 4.0 08/30 [facility] HEMATOLOGY Basophils 0.3 % 0.0 - 1.0 08/30 [facility] HEMATOLOGY Monocytes 8.1 % 2.0 - 12.0 08/30 [facility] HEMATOLOGY Segs-Bands # 12.8 K/CMM 1.5 - 8.1 08/30 [facility] HEMATOLOGY Lymphocytes 4.2 K/CMM 1.0 - 5.5 08/30 # /2015 [facility] HEMATOLOGY Basophils # 0.1 K/CMM 0.0 - 0.2 08/30 [facility] HEMATOLOGY Monocytes # 1.5 K/CMM 0.0 - 0.8 08/30 [facility] HEMATOLOGY Microcyte 2+ None Seen 08/30 [facility] *ABN* (08/30/16 4:58 AM) HEMATOLOGY Eosinophils 0.4 K/CMM 0.0 - 0.5 08/30 # /2016 [facility] HEMATOLOGY Segs 67.6 % 45.0 - 08/30 75.0 /2015 [facility] HEMATOLOGY Lymphocytes 22.0 % 20.0 - 08/30 40.0 [facility] CHEM PANEL Procalcitoni <0.05 0.00 - 08/30 n Lvl ng/mL 0.10 [facility] HEMATOLOGY RDW 16.3 % 11.5 - 08/29 14.5 /2015 [facility] HEMATOLOGY MCHC 30.8 g/dL 32.0 - 11 36.0 /2015 [facility] HEMATOLOGY MPV 7.9 fL 7.4 - 10.4 08/29 [facility] HEMATOLOGY Platelet 342 K/CMM 133 - 450 08/29 [facility] HEMATOLOGY MCV 73.5 fL 80.0 - 08/29 98.0 /2015 [facility] HEMATOLOGY WBC 18.2 K/CMM 3.7 - 10.4 08/29 [facility] HEMATOLOGY RBC 4.41 M/CMM 4.20 - 08/29 MH 5.40 /2015 [facility] HEMATOLOGY Hgb 10.0 g/dL 12.0 - 08/29 16.0 /2015 [facility] HEMATOLOGY Hct 32.4 % 36.0 - 08/29 MH 48.0 /2015 [facility] MCH 22.7 pg 27.0 - 08/29 MH 31.0 [facility] Basophils # 0.2 K/CMM 0.0 - 0.2 08/29 [facility] HEMATOLOGY Eosinophils 0.2 K/CMM 0.0 - 0.5 08/29 # /2015 [facility] Microcyte 2+ None Seen 08/29 [facility] *ABN* (08/29/16 12:32 PM) HEMATOLOGY Monocytes # 1.7 K/CMM 0.0 - 0.8 08/29 [facility] Lymphocytes 3.7 K/CMM 1.0 - 5.5 08/29 # [facility] Segs 68.1 % 45.0 - 08/29 75.0 [facility] Monocytes 9.1 % 2.0 - 12.0 08/29 [facility] Lymphocytes 20.5 % 20.0 - 08/29 40.0 [facility] Segs-Bands # 12.4 K/CMM 1.5 - 8.1 08/29 [facility] Eosinophils 1.3 % 0.0 - 4.0 08/29 [facility] Basophils 1.0 % 0.0 - 1.0 08/29 [facility] Abdomen wo Abdomen wo MR ABDOMEN WITH MRCP 08/29 - contrast contrast - [facility] MRI HISTORY: Chronic abdominal pain; epigastric pain, history of cholecystectomy Read by: Dung Ashby MD Dictated Date/time: 08/29/16 15:21 Electronically Signed by: Dung Ashby MD 08/29/16 15:25 FINAL REPORT TECHNIQUE: Multiplanar imaging was performed. Three-dimensional thick slab was obtained. COMPARISON: CT abdomen/pelvis dated 02/15/2016 FINDINGS: Gallbladder is absent compatible with history of prior cholecystectomy. No intrahepatic biliary dilation. No dilation of the common bile duct. No filling defect in the common bile duct to suggest choled ocholithiasis. Common bile measures 4-5 mm in caliber. The liver, spleen, pancreas, adrenal glands, and kidneys appear normal. No hydronephrosis. No dilation of the pancreatic duct. Stomach is unremarkable. Visualized portion of the small and large bowel is unremarkable. IMPRESSION: Cholecystectomy, otherwise normal exam. SL: [id number] Chest 1 v Chest 1 v Patient Name: MARNIE KATHLEEN 08/29 - for - [facility] Placement Placement DX : 1960; Age: 55 years y/o Female DX MR: [id number] Read by: Bernabe Benoit MD Dictated Date/time: 08/29/16 12:38 Electronically Signed by: Bernabe Benoit MD 08/29/16 12:42 FINAL REPORT * CHEST, portable, 1 view HISTORY: PICC Line Placement; COMPARISON: 08/22/2016. A study 11/16/2014 and a chest computed tomography scan 11/17/2014 were reviewed. IMPRESSION: 1. There is a right upper extremity peripherally inserted central catheter which terminates in the region of the upper brachial/lower axillary region. 2. No active disease. The lungs are clear. No pleural effusions. There is slight chronic elevation of the right hemidiaphragm. 3. The heart is normal in size. 4. Postoperative changes, cervical spine. The lower portion of a cervical fusion plate is noted. The regional skeleton is otherwise unremarkable. SL: [id number] CHEM PANEL Phosphorus 2.6 mg/dL 2.5 - 4.5 08/29 [facility] CHEM PANEL Bili Total 0.2 mg/dL 0.2 - 1.3 08/29 [facility] CHEM PANEL Alk Phos 96 unit/L 39 - 136 08/29 [facility] CHEM PANEL AST 15 unit/L 0 - 37 08/29 [facility] CHEM PANEL ALT 17 unit/L 0 - 65 08/29 [facility] CHEM PANEL Globulin 3.9 g/dL 2.7 - 4.2 08/29 [facility] CHEM PANEL Albumin Lvl 2.8 g/dL 3.5 - 5.0 08/29 [facility] CHEM PANEL A/G Ratio 0.7 0.7 - 1.6 08/29 [facility] CHEM PANEL Total 6.7 g/dL 6.4 - 8.4 08/29 [facility] CHEM PANEL Calcium Lvl 8.4 mg/dL 8.5 - 10.5 08/29 [facility] CHEM PANEL B/C Ratio 9 6 - 25 08/29 [facility] CHEM PANEL eGFR 83 08/29 Result Comment: The eGFR is calculated using the CKD-EPI formula. In most young, healthy individuals the eGFR will be >90 mL/ min/1.73m2. The eGFR declines with age. An eGFR of 60-89 may be normal in mL/min/1.2016 some populations, particularly the elderly, for whom the CKD-EPI formula has not been extensively validated. Use of the eGFR is not recommended in the following populations: [facility] 3m2 Individuals with unstable creatinine concentrations, including patients and those with serious co-morbid conditions. Patients with extremes in muscle mass or diet. The data above are obtained from the National Kidney Disease Education Program (NKDEP) which additionally recommends that when the eGFR is used in patients with extremes of body mass index for purposes of drug dosing, the eGFR should be multiplied by the estimated BMI. CHEM PANEL AGAP 9.8 meq/L 10.0 - 08/29 MH 20.0 [facility] CHEM PANEL CO2 34 meq/L 24 - 32 08/29 [facility] CHEM PANEL Chloride Lvl 96 meq/L 95 - 109 08/29 [facility] CHEM PANEL Sodium Lvl 137 meq/L 135 - 145 08/29 [facility] CHEM PANEL Potassium 2.8 meq/L 3.5 - 5.1 08/29 Result Lv Comment: [facility] Critical Result(s) called to [place] at 08/29/2016 07:56 by SANJANA. Read back OK. CHEM PANEL Glucose Lvl 117 mg/dL 70 - 99 08/29 [facility] CHEM PANEL BUN 8 mg/dL 7 - 22 08/29 [facility] CHEM PANEL Creatinine 0.90 mg/dL 0.50 - 08/29 Lvl 1.40 /2015 [facility] CHEM PANEL Magnesium 2.3 mg/dL 1.8 - 2.4 08/29 Lvl [facility] URINE AND UA Protein Negative Negative 08/29 STOOL mg/dL mg/dL [facility] URINE AND UA Glucose Negative Negative 08/29 STOOL mg/dL mg/dL [facility] URINE AND UA Ketones Trace Negative 08/29 [facility] mg/dL mg/dL /2015 [facility] URINE AND UA Bili Negative Negative 08/29 STOOL [facility] *NA* (08/29/16 12:26 AM) URINE AND UA pH 7.0 5.0 - 8.0 08/29 STOOL [facility] URINE AND UA Color Light Yellow Yellow 08/29 STOOL [facility] *NA* (08/29/16 12:26 AM) URINE AND UA Turbidity Clear Clear 08/29 STOOL [facility] (08/29/16 12:26 AM) URINE AND UA Spec Grav 1.003 <=1.030 08/29 STOOL [facility] URINE AND UA RBC null 0 - 2 08/29 STOOL [facility] URINE AND UA Bacteria Moderate None Seen 08/29 [facility]OOL /HPF /HPF [facility] URINE AND UA Mucus Few /LPF None Seen 08/29 STOOL /LPF [facility] URINE AND UA null 0.1 - 1.0 08/29 STOOL Urobilinogen [facility] URINE AND UA WBC 1 /HPF 0 - 5 08/29 STOOL [facility] URINE AND UA Blood Negative Negative 08/29 STOOL [facility] (08/29/16 12:26 AM) URINE AND UA Nitrite Negative Negative 08/29 STOOL [facility] (08/29/16 12:26 AM) URINE AND UA Leuk Est Negative Negative 08/29 STOOL [facility] (08/29/16 12:26 AM) URINE AND UA Sq Epi Few /LPF Few /LPF 08/29 [facility] CHEM PANEL Lipase Lvl 200 unit/L 73 - 393 08/29 [facility] CHEM PANEL Globulin 4.2 g/dL 2.7 - 4.2 08/29 [facility] CHEM PANEL A/G Ratio 0.7 0.7 - 1.6 08/29 [facility] CHEM PANEL B/C Ratio 9 6 - 25 08/29 [facility] CHEM PANEL Alk Phos 103 unit/L 39 - 136 08/29 [facility] CHEM PANEL Bili Total 0.3 mg/dL 0.2 - 1.3 08/29 [facility] CHEM PANEL ALT 18 unit/L 0 - 65 08/29 [facility] CHEM PANEL AST 23 unit/L 0 - 37 08/29 [facility] CHEM PANEL Total 7.3 g/dL 6.4 - 8.4 08/29 Protein [facility] CHEM PANEL Albumin Lvl 3.1 g/dL 3.5 - 5.0 08/29 [facility] HEMATOLOGY Bands 0.0 % 0.0 - 11.0 08/29 [facility] HEMATOLOGY Atypical 0.0 % <=0.0 % 08/29 Lymphs [facility] HEMATOLOGY Plt Morph Normal 08/29 [facility] (08/28/16 10:59 PM) HEMATOLOGY Anisocyte 1+ None Seen 08/29 [facility] *ABN* (08/28/16 10:59 PM) LIPIDS VLDL 22 08/29 [facility] LIPIDS LDL 69 mg/dL <=99 mg/dL 08/29 (Calculated) [facility] LIPIDS CHD Risk 2.60 3.90 - 08/29 5.80 [facility] LIPIDS HDL 57 mg/dL >=61 mg/dL 08/29 [facility] LIPIDS Chol 148 mg/dL <=199 08/29 mg/dL [facility] LIPIDS Trig 111 mg/dL <=149 08/29 mg/dL [facility] MOLECULAR Source Bronch Myranda. Lavage 2 08/22 Result [facility] Respiratory /2015 Comment: [facility] Panel PCR (08/22/16 9:49 AM) Reagents are FDA approved for nasopharyngea l samples only. The testing of any other sample source does not have FDA approval. MOLECULAR Influenza B Negative Negative 08/22 [facility] PCR /2015 [facility] (08/22/16 9:49 AM) MOLECULAR Influenza A Negative Negative 08/22 [facility] PCR /2015 [facility] (08/22/16 9:49 AM) MOLECULAR RSV PCR Negative Negative 08/22 [facility] /2015 [facility] (08/22/16 9:49 AM) MOLECULAR Source Bronch Myranda. Lavage 1 08/22 Result [facility] DIAGNOSTIC Parainfluenz Comment: [facility] a Virus PCR (08/22/16 9:49 AM) Reagents are FDA approved for nasopharyngea l samples only. The testing of any other sample source does not have FDA approval. MOLECULAR Parainfluenz Negative Negative 08/22 [facility] a 1 PCR /2015 [facility] (08/22/16 9:49 AM) MOLECULAR Parainfluenz Negative Negative 08/22 [facility] a 2 PCR /2015 [facility] (08/22/16 9:49 AM) MOLECULAR Parainfluenz Negative Negative 08/22 [facility] a 3 PCR /2015 [facility] (08/22/16 9:49 AM) MOLECULAR Source Bronch Myranda. Lavage 08/22 [facility] Adenovirus /2015 [facility] PCR (08/22/16 9:49 AM) MOLECULAR Adenovirus Negative Negative 08/22 [facility] PCR /2015 [facility] (08/22/16 9:49 AM) Chest Chest 1view EXAM: 08/22 - [facility] 1view DX - [facility] 1 view(s) of the chest. Read by: Manan Durham MD Dictated Date/time: 08/22/16 09:35 CLINICAL HX: Electronically Signed by: Manan Durham MD 08/22/16 09:36 FINAL REPORT Abnormal chest sounds. . . COMPARISON: Chest x-ray: 12/09/2015. FINDINGS: Support apparatus: None. Cardiac silhouette: Unremarkable. Violeta: Unremarkable. Lobar consolidation: Negative. Pleural effusion: Negative. Pneumothorax: Negative. Other: Negative. Bones: Unremarkable. Other: None. IMPRESSION: 1. No acute cardiopulmonary process. HEMATOLOGY PT 18.5 s 12.0 - 03/28 14.7 /2015 [facility] INR 1.51 0.85 - 03/28 1.17 /2015 [facility] RBC 4.61 M/CMM 4.20 - 06 5.40 /2015 [facility] WBC 22.1 K/CMM 3.7 - 10.4 /08 /2015 [facility] RDW 15.6 % 11.5 - 03/28 14.5 /2015 [facility] Platelet 308 K/CMM 133 - 450 06 /2015 [facility] MPV 8.3 fL 7.4 - 10.4 06/08 MH /2015 [facility] MCHC 30.5 g/dL 32.0 - 06 36.0 /2015 [facility] MCH 23.4 pg 27.0 - 06 31.0 /2015 [facility] Hgb 10.8 g/dL 12.0 - 06 16.0 /2015 [facility] [facility] Hct 35.4 % 36.0 - 06 48.0 /2016 [facility] MCV 76.8 fL 80.0 - 06 98.0 /2015 [facility] Eosinophils 0.3 K/CMM 0.0 - 0.5 /08 MH # /2016 [facility] HEMATOLOGY Basophils # 0.2 K/CMM 0.0 - 0.2 03/28 [facility] HEMATOLOGY Microcyte 1+ None Seen 03/28 [facility] *ABN* (03/28/16 7:00 AM) HEMATOLOGY Segs 61.8 % 45.0 - / MH 75.0 /2015 [facility] HEMATOLOGY Lymphocytes 6.2 K/CMM 1.0 - 5.5 /08 # /2016 [facility] HEMATOLOGY Monocytes # 1.8 K/CMM 0.0 - 0.8 03/28 [facility] HEMATOLOGY Basophils 0.9 % 0.0 - 1.0 03/28 [facility] HEMATOLOGY Segs-Bands # 13.6 K/CMM 1.5 - 8.1 03/28 [facility] HEMATOLOGY Lymphocytes 27.9 % 20.0 - 03/28 MH 40.0 /2015 [facility] HEMATOLOGY Eosinophils 1.3 % 0.0 - 4.0 03/28 [facility] HEMATOLOGY Monocytes 8.1 % 2.0 - 12.0 03/28 [facility] Bone Bone Marrow Bone Marrow Biopsy or Trocar (VR) 03/28/2016 7:42 AM CDT - Marrow Biopsy or - [facility] Biopsy or Trocar (VR) Ordering Physician: Luci Randolph MD Trocar (VR) Read by: Lise Florez MD Dictated Date/time: 03/28/16 15:15 CLINICAL HISTORY: myeloprolifferative disorder; Electronically Signed by: Lise Florez MD 03/28/16 15:17 FINAL REPORT COMPARISON: None PROCEDURE: Informed consent was obtained from the patient, after which the patient was brought into the examination suite and placed in a prone position on the fluoroscopy table. The right posterior iliac bone was identified, the biopsy trajectory was chosen, and the overlying skin was marked and prepped and draped utilizing all elements of maximal sterile barrier technique. Lidocaine was injected into a focus skin, soft tissues and periosteum. The 13-gauge Osteosite trocar biopsy needle advanced under fluoroscopic guidance through the anesthetized tract and down to the periosteal lining. 1 cc of bone marrow was aspirated and analyzed by a nuclear reactor technician to confirm appropriate access followed by 5 mL of bone marrow aspirate. The biopsy needle was further advanced 1 to 2 cm, and a core biopsy was obtained and sent for laboratory analysis. The patient tolerated procedure well was taken back to her room in stable fashion. COMPLICATIONS: None ANESTHESIA: Lidocaine solution was administered locally, as described; Moderate conscious sedation was initiated and maintained with intravenous 2 mg Versed and 100 mcg fentanyl for a total face to face sedation time of 15 minutes. The patient's vital signs were monitored throughout the procedure by a dedicated nurse. BAND SAWMILL OPERATOR: Dr. Florze FLUOROSCOPY TIME: 0.7 mins IMPRESSION: Successful fluoroscopically guided bone marrow and bone biopsies. SL: [id number] ANEMIA Folate Lvl 15.4 ng/mL >=3.0 03/28 STUDY ng/mL [facility] ANEMIA TIBC 341 ug/dl 228 - 428 03/28 [facility] ANEMIA Iron 28 ug/dl 30 - 160 03/28 [facility] ANEMIA % Satur Fe 8 % 12 - 57 03/28 [facility] ANEMIA UIBC 313 ug/dl 110 - 370 03/28 [facility] ANEMIA Ferritin Lvl 17 ng/mL 5 - 204 03/28 [facility] ANEMIA Vitamin B12 497 pg/mL 254 - 1320 03/28 STUDY Lvl [facility] CHEM PANEL Bili Total 0.2 mg/dL 0.2 - 1.3 03/28 [facility] CHEM PANEL Bili Direct null 0.0 - 0.3 03/28 [facility] CHEM PANEL Bili Unable to 0.0 - 1.0 03/28 Indirect Calculate [facility] CHEM PANEL LDH 285 unit/L 98 - 192 03/28 [facility] HEMATOLOGY Retic Auto 1.0 % 0.5 - 1.5 03/28 [facility] HEMATOLOGY PB Smear Moderate 03/28 Path granulocyt /2015 [facility] ic and monocytic leukocytos is. Mild anemia with hypochromi c, microcytic indices. Plasmacyto id lymphoid cells present. Clinical and laboratory correlatio n required. IMMUNOLOGY JAK2 exon 12 NOT NOT 03/28 Result Comment: JAK2 EXON 12 was sequenced and tested for MH Mutations DETECTED mutations. There is no evidence of mutation in [facility] JAK2 EXON 12 IMMUNOLOGY JAK2 exon 13 NOT NOT 03/28 Result Comment: JAK2 EXON 13 was sequenced and tested for MH Mutations DETECTED mutations. There is no evidence of mutation in [facility] JAK2 EXON 13 Results reviewed by Henrik Kramer M.D. JAK2 exon 12 mutations define a distinctive myeloproliferative syndrome without the V617F mutation. Patients with JAK2 exon 12 mutation presented with an isolated erythrocytosis and distinctive bone marrow morphology or had reduced serum erythropoietin levels. JAK2 exon 12 mutations are rare when compared with V617F mutation, and it is always heterozygous according to publications. This is a PCR/sequencing assay. Our studies demonstrate that plasma-based testing for JAK2 provides significantly higher sensitivity and better determination of heterozygous Vs homozygous/hemizygous. Effective immediately our preferred sample type for JAK2 testing is plasma rather than cells. We recommend submitting whole blood for testing and plasma will be tested first; if quantity is inadequate cells will be tested. 1. Jana Shields. et al. Hemizygous/homozygous and heterozygous JAK2 mutation detected in plasma of patients with myeloproliferative diseases: correlation with clinical behavior. 2006. Br J Haematol. 134(3):341-3. 2. Jana et al. Higher detection rate of JAK2 mutation using plasma. Blood. 2008 Jan 19;111(7):3906-7. This test is performed pursuant to a license agreement with [employer] This test was developed and its analytical performance characteristics have been determined by [facility]. It has not been cleared or approved by FDA. This assay has been validated pursuant to the CLIA regulations and is used for clinical purposes. Test Performed at: [facility] [address] [id number] Rosalie Vallecillo MD, PhD IMMUNOLOGY JAK2 (V617F) NOT NOT 03/28 Result Comment: Based on sequence analysis, no mutated JAK2 V617F MH DETECTED /2015 allele was detected. Reflex testing for JAK2 EXON [place] 12 and EXON 13 will be performed. Results reviewed by Henrik Kramer M.D. The V617F mutation was found in >80% of the patients with polycythemia vera (PV), 30-50% of patients with either essential thrombocythemia (ET) or myelofibrosis (MF) according to recent publications. The mutation is not detected in normal individuals. JAK2 exon 12 mutations define a distinctive myeloproliferative syndrome in patients without the V617F mutation. Test Performed at: [facility] [address] [id number] Rosalie Vallecillo MD, PhD IMMUNOLOGY Source JAK2 LAV TOP WB 03/28 Mutation /2015 [facility] IMMUNOLOGY Hgb Interp No 03/28 abnormal [facility] hemoglobin s are detected; normal hemoglobin electropho resis pattern.Th e electronic medical record has been reviewed for relevant history. 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 Please note, iron deficiency may falsely lower hemoglobin A2 levels, thus masking beta-thala ssemia trait.I have personally reviewed the test results and concur with the resident's interpreta tion.CPT [address]47[address]-[place] IMMUNOLOGY Hgb A2 % 2.0 % 2.2 - 3.2 03/28 [facility] IMMUNOLOGY Hgb F % 0.0 % 0.0 - 1.0 03/28 [facility] IMMUNOLOGY Hgb S % 0.0 % 0.0 - 0.0 03/28 [facility] IMMUNOLOGY Hgb C % 0.0 % 0.0 - 0.0 03/28 [facility] IMMUNOLOGY Hgb A % 98.0 % 95.8 - 03/28 97.8 [facility] CHEM PANEL eGFR 73 03/27 Result Comment: The eGFR is calculated using the CKD-EPI formula. In most young, healthy individuals the eGFR will be >90 mL/ min/1.73m2. The eGFR declines with age. An eGFR of 60-89 may be normal in mL/min/1.7 /2016 some populations, particularly the elderly, for whom the CKD-EPI formula has not been extensively validated. Use of the eGFR is not recommended in the following populations: [address] Individuals with unstable creatinine concentrations, including patients and those with serious co-morbid conditions. Patients with extremes in muscle mass or diet. The data above are obtained from the National Kidney Disease Education Program (NKDEP) which additionally recommends that when the eGFR is used in patients with extremes of body mass index for purposes of drug dosing, the eGFR should be multiplied by the estimated BMI. CHEM PANEL Bili Total 0.1 mg/dL 0.2 - 1.3 03/27 [facility] CHEM PANEL Alk Phos 118 unit/L 39 - 136 03/27 [facility] CHEM PANEL AST 16 unit/L 0 - 37 03/27 [facility] CHEM PANEL ALT 28 unit/L 0 - 65 03/27 [facility] CHEM PANEL Albumin Lvl 3.1 g/dL 3.5 - 5.0 03/27 [facility] CHEM PANEL Total 7.2 g/dL 6.4 - 8.4 03/27 MH Protein [facility] CHEM PANEL Calcium Lvl 9.0 mg/dL 8.5 - 10.5 06 [facility] CHEM PANEL CO2 29 meq/L 24 - 32 03/27 [facility] CHEM PANEL Chloride Lvl 97 meq/L 95 - 109 03/27 [facility] CHEM PANEL Potassium 3.6 meq/L 3.5 - 5.1 03/27 Lvl /2015 [facility] CHEM PANEL Sodium Lvl 132 meq/L 135 - 145 03/27 [facility] CHEM PANEL Creatinine 1.00 mg/dL 0.50 - 03/27 MH Lvl 1.40 [facility] CHEM PANEL BUN 12 mg/dL 7 - 22 03/27 [facility] CHEM PANEL Glucose Lvl 125 mg/dL 70 - 99 03/27 [facility] CHEM PANEL AGAP 9.6 meq/L 10.0 - 06 MH 20.0 /2015 [facility] CHEM PANEL Globulin 4.1 g/dL 2.0 - 4.0 / [facility] CHEM PANEL B/C Ratio 12 6 - 25 03/27 [facility] CHEM PANEL A/G Ratio 0.8 0.7 - 1.6 03/27 [facility] HEMATOLOGY INR 1.58 0.85 - 03/27 MH 1.17 /2015 [facility] HEMATOLOGY PT 19.2 s 12.0 - 03/27 MH 14.7 /2015 [facility] HEMATOLOGY Monocytes # 1.9 K/CMM 0.0 - 0.8 03/27 /2015 [facility] HEMATOLOGY Eosinophils 0.5 K/CMM 0.0 - 0.5 /07 # /2016 [facility] HEMATOLOGY Microcyte 1+ None Seen 03/27 /2015 [facility] *ABN* (03/27/16 6:45 AM) HEMATOLOGY Basophils # 0.1 K/CMM 0.0 - 0.2 03/27 /2015 [facility] HEMATOLOGY Segs 64.0 % 45.0 - 06/07 MH 75.0 /2015 [facility] HEMATOLOGY Eosinophils 2.0 % 0.0 - 4.0 03/27 [facility] HEMATOLOGY Monocytes 8.3 % 2.0 - 12.0 07 /2015 [facility] HEMATOLOGY Lymphocytes 25.2 % 20.0 - 06/ MH 40.0 /2015 [facility] HEMATOLOGY Lymphocytes 5.9 K/CMM 1.0 - 5.5 06/ MH # /2015 [facility] HEMATOLOGY Segs-Bands # 14.9 K/CMM 1.5 - 8.1 03/27 MH /2015 [facility] HEMATOLOGY Basophils 0.5 % 0.0 - 1.0 03/27 MH /2015 [facility] HEMATOLOGY MCHC 31.1 g/dL 32.0 - 06 36.0 /2015 [facility] MCH 23.6 pg 27.0 - 03/27 31.0 [facility] HEMATOLOGY MCV 75.9 fL 80.0 - 03/27 98.0 [facility] HEMATOLOGY Hgb 10.7 g/dL 12.0 - 03/27 16.0 [facility] HEMATOLOGY Hct 34.5 % 36.0 - 03/27 48.0 [facility] WBC 23.2 K/CMM 3.7 - 10.4 03/27 /2015 [facility] HEMATOLOGY RBC 4.54 M/CMM 4.20 - 03/27 5.40 /2015 [facility] MPV 8.2 fL 7.4 - 10.4 03/27 [facility] HEMATOLOGY RDW 16.0 % 11.5 - 03/27 14. [facility] HEMATOLOGY Platelet 353 K/CMM 133 - 450 03/27 [facility] CHEM PANEL Procalcitoni <0.05 0.00 - 06 n Lvl ng/mL 0.10 [facility] HEMATOLOGY MCHC 32.3 g/dL 32.0 - 03/26 36.0 [facility] HEMATOLOGY MCV 74.8 fL 80.0 - 03/26 98.0 [facility] MCH 24.1 pg 27.0 - 03/26 31.0 [facility] HEMATOLOGY RDW 15.8 % 11.5 - 03/26 14. [facility] HEMATOLOGY Platelet 393 K/CMM 133 - 450 06 [facility] HEMATOLOGY MPV 8.1 fL 7.4 - 10.4 03/26 [facility] HEMATOLOGY Hct 33.3 % 36.0 - 03/26 48.0 [facility] HEMATOLOGY WBC 25.8 K/CMM 3.7 - 10.4 03/26 [facility] HEMATOLOGY Hgb 10.7 g/dL 12.0 - 03/26 16.0 /2015 [facility] HEMATOLOGY RBC 4.45 M/CMM 4.20 - 03/26 5.40 /2015 [facility] HEMATOLOGY Microcyte 2+ None Seen 03/26 [facility] *ABN* (03/26/16 2:40 PM) HEMATOLOGY Eosinophils 0.0 K/CMM 0.0 - 0.5 03/26 MH # /2015 [facility] HEMATOLOGY Basophils # 0.0 K/CMM 0.0 - 0.2 03/26 [facility] HEMATOLOGY Monocytes # 1.3 K/CMM 0.0 - 0.8 03/26 [facility] HEMATOLOGY Plt Morph Normal 03/26 [facility] (03/26/16 2:40 PM) HEMATOLOGY Segs 69.0 % 45.0 - 03/26 75.0 [facility] HEMATOLOGY Monocytes 5.0 % 2.0 - 12.0 03/26 [facility] HEMATOLOGY Lymphocytes 25.0 % 20.0 - 03/26 40.0 [facility] HEMATOLOGY Atypical 1.0 % <=0.0 % 03/26 Lymphs /2015 [facility] HEMATOLOGY Lymphocytes 6.7 K/CMM 1.0 - 5.5 03/26 # /2015 [facility] HEMATOLOGY Basophils 0.0 % 0.0 - 1.0 03/26 [facility] HEMATOLOGY Eosinophils 0.0 % 0.0 - 4.0 03/26 [facility] HEMATOLOGY Segs-Bands # 17.8 K/CMM 1.5 - 8.1 03/26 [facility] URINE AND UA null 0.1 - 1.0 03/26 STOOL Urobilinogen /2015 [facility] URINE AND UA Leuk Est Negative Negative 03/26 STOOL /2015 [facility] (03/26/16 1:07 PM) URINE AND UA WBC null 0 - 5 03/26 STOOL [facility] URINE AND UA Nitrite Negative Negative 03/26 STOOL [facility] (03/26/16 1:07 PM) URINE AND UA Sq Epi Occasional Few /LPF 03/26 STOOL /LPF /2015 [facility] URINE AND UA Mucus Few /LPF None Seen 03/26 STOOL /LPF [facility] URINE AND UA RBC null 0 - 2 03/26 STOOL [facility] URINE AND UA Bacteria Occasional None Seen 03/26 STOOL /HPF /HPF /2015 [facility] URINE AND UA Ketones Negative Negative 03/26 STOOL mg/dL mg/dL /2015 [facility] URINE AND UA Glucose Negative Negative 03/26 STOOL mg/dL mg/dL [facility] URINE AND UA Protein Negative Negative 03/26 STOOL mg/dL mg/dL [facility] URINE AND UA Bili Negative Negative 03/26 STOOL [facility] *NA* (03/26/16 1:07 PM) URINE AND UA Blood Negative Negative 03/26 STOOL [facility] (03/26/16 1:07 PM) URINE AND UA Color Light Yellow Yellow 03/26 [facility] *NA* (03/26/16 1:07 PM) URINE AND UA pH 6.0 5.0 - 8.0 03/26 [facility] URINE AND UA Turbidity Clear Clear 03/26 [facility] (03/26/16 1:07 PM) URINE AND UA Spec Grav 1.012 <=1.030 03/26 [facility] CARDIAC BNP 5 pg/mL <=100 03/26 ENZYMES pg/mL [facility] CHEM PANEL Calcium Lvl 8.8 mg/dL 8.5 - 10.5 03/26 [facility] CHEM PANEL eGFR 65 03/26 Result Comment: The eGFR is calculated using the CKD-EPI formula. In most young, healthy individuals the eGFR will be >90 mL/ min/1.73m2. The eGFR declines with age. An eGFR of 60-89 may be normal in mL/min/1.7 /2015 some populations, particularly the elderly, for whom the CKD-EPI formula has not been extensively validated. Use of the eGFR is not recommended in the following populations: [address] Individuals with unstable creatinine concentrations, including patients and those with serious co-morbid conditions. Patients with extremes in muscle mass or diet. The data above are obtained from the National Kidney Disease Education Program (NKDEP) which additionally recommends that when the eGFR is used in patients with extremes of body mass index for purposes of drug dosing, the eGFR should be multiplied by the estimated BMI. CHEM PANEL Chloride Lvl 98 meq/L 95 - 109 03/26 [facility] CHEM PANEL CO2 29 meq/L 24 - 32 03/26 [facility] CHEM PANEL AGAP 11.4 meq/L 10.0 - 03/26 MH 20.0 /2016 [facility] CHEM PANEL Creatinine 1.10 mg/dL 0.50 - 03/26 MH Lvl 1.40 /2015 [facility] CHEM PANEL BUN 16 mg/dL 7 - 03/26 /2015 [facility] CHEM PANEL Sodium Lvl 135 meq/L 135 - 145 / /2015 [facility] CHEM PANEL Potassium 3.4 meq/L 3.5 - 5.1 03/26 MH Lvl /2015 [facility] CHEM PANEL Glucose Lvl 129 mg/dL 70 - 99 03/26 /2015 [facility] HEMATOLOGY INR 1.32 0.85 - 06 MH 1.17 /2015 [facility] HEMATOLOGY PT 16.7 s 12.0 - 03/26 MH 14.7 /2015 [facility] CARDIAC CK MB 1.0 ng/mL 0.5 - 3.6 03/26 ENZYMES /2015 [facility] CARDIAC CK MB Index 0.9 0.0 - 2.5 03/26 MH ENZYMES /2015 [facility] CARDIAC Troponin-I 0.02 ng/mL 0.00 - 03/26 ENZYMES 0.40 [facility] CARDIAC Total CK 106 unit/L 12 - 191 03/26 ENZYMES /2015 [facility] CHEM PANEL eGFR 59 03/25 Result Comment: The eGFR is calculated using the CKD-EPI formula. In most young, healthy individuals the eGFR will be >90 mL/ min/1.73m2. The eGFR declines with age. An eGFR of 60-89 may be normal in MH mL/min/1. some populations, particularly the elderly, for whom the CKD-EPI formula has not been extensively validated. Use of the eGFR is not recommended in the following populations: [address] Individuals with unstable creatinine concentrations, including patients and those with serious co-morbid conditions. Patients with extremes in muscle mass or diet. The data above are obtained from the National Kidney Disease Education Program (NKDEP) which additionally recommends that when the eGFR is used in patients with extremes of body mass index for purposes of drug dosing, the eGFR should be multiplied by the estimated BMI. CHEM PANEL Glucose Lvl 126 mg/dL 70 - 99 / [facility] CHEM PANEL BUN 13 mg/dL 7 - 03/25 [facility] CHEM PANEL Creatinine 1.20 mg/dL 0.50 - 03/25 MH Lvl 1.40 [facility] CHEM PANEL Sodium Lvl 127 meq/L 135 - 145 03/25 [facility] CHEM PANEL Potassium 3.9 meq/L 3.5 - 5.1 03/25 Lvl /2015 [facility] CHEM PANEL Chloride Lvl 93 meq/L 95 - 109 03/25 [facility] CHEM PANEL CO2 25 meq/L 24 - 32 03/25 [facility] CHEM PANEL Calcium Lvl 9.0 mg/dL 8.5 - 10.5 03/25 [facility] CHEM PANEL AGAP 12.9 meq/L 10.0 - 03/25 20.0 [facility] HEMATOLOGY Plt Morph Normal 03/25 [facility] (03/25/16 1:08 PM) Pelvis AP Pelvis AP DX Clinical Indication: Back pain; 03/25 [facility] Comparison: None Read by: Trina Dudley Dictated Date/time: 03/25/16 15:14 FINDINGS: Electronically Signed by: Trina Dudley 03/25/16 15:14 FINAL REPORT The AP pelvis radiograph shows no fractures or dislocations of the pelvis. The pelvic and obturator rings are intact. The pubic rami are intact. The symphysis pubis and sacroiliac joints are unremarkabl e. The visualized sacral foramina are unremarkable. The hip joint spaces, proximal femoral regions and acetabular regions are unremarkable. The visualized bowel gas pattern is nonobstructive. If there is further concern, recommend follow-up radiographs or CT for complete assessment. IMPRESSION: No acute abnormality. SL: WR3-M Spine Spine Clinical Indication: Backache; 03/25 thoracic 3 thoracic - [facility] views DX views DX Comparison: None Read by: Trina Dudley Dictated Date/time: 03/25/16 15:12 Electronically Signed by: Trina Dudley 03/25/16 15:13 FINAL REPORT FINDINGS: The 3 views of the thoracic spine show no acute fractures. There are mild multilevel degenerative changes. There is a subtle curvature to the lower thoracic spine that may be positional. The anterior paraspinal soft tissues are unremarkable. Included in the [id number], is evidence of prior cervical spine fusion. If there is further clinical concern, recommend CT or MRI of the thoracic spine for complete assessment. IMPRESSION: No acute abnormality. SL: WR3-M Spine Spine lumbar Clinical Indication: Backache; pain following fall - lumbar series DX /2015 - [facility] series DX Comparison: None Read by: Trina Dudley Dictated Date/time: 03/25/16 15:15 Electronically Signed by: Trina Dudley 03/25/16 15:17 FINAL REPORT FINDINGS: The AP, lateral, coned lateral, and bilateral oblique views of the lumbar spine show five non rib bearing lumbar vertebral bodies. There are no acute fractures or pars defects. There are mild multilevel degenerative changes. Facet arthropathy is identified at L3-S1. The paraspinal soft tissues are unremarkable. If there is further clinical concern, MRI or CT of the lumbar spine may be performed for complete assessment. IMPRESSION: Degenerative changes without acute bony abnormality. SL: WR3-M HEMATOLOGY Microcyte 1+ None Seen 02/19 [facility] *ABN* (02/20/16 5:54 AM) HEMATOLOGY Basophils # 0.1 K/CMM 0.0 - 0.2 02/19 [facility] HEMATOLOGY Eosinophils 0.4 K/CMM 0.0 - 0.5 02/19 # [facility] HEMATOLOGY Eosinophils 2.4 % 0.0 - 4.0 02/19 [facility] HEMATOLOGY Monocytes 10.1 % 2.0 - 12.0 02/19 [facility] HEMATOLOGY Monocytes # 1.6 K/CMM 0.0 - 0.8 02/19 [facility] HEMATOLOGY Lymphocytes 3.6 K/CMM 1.0 - 5.5 02/19 # /2015 [facility] HEMATOLOGY Segs-Bands # 10.3 K/CMM 1.5 - 8.1 02/19 [facility] HEMATOLOGY Basophils 0.5 % 0.0 - 1.0 02/19 [facility] HEMATOLOGY Lymphocytes 22.4 % 20.0 - 02/19 MH 40.0 /2015 [facility] HEMATOLOGY Segs 64.6 % 45.0 - 02/19 75.0 [facility] HEMATOLOGY MPV 8.0 fL 7.4 - 10.4 02/19 [facility] HEMATOLOGY Platelet 357 K/CMM 133 - 450 02/19 [facility] HEMATOLOGY MCV 75.1 fL 80.0 - 02/19 98.0 [facility] HEMATOLOGY RDW 16.0 % 11.5 - 02/19 MH 14.5 /2015 [facility] HEMATOLOGY MCHC 32.4 g/dL 32.0 - 02/19 MH 36.0 /2015 [facility] HEMATOLOGY MCH 24.3 pg 27.0 - 02/19 MH 31.0 /2015 [facility] HEMATOLOGY Hct 28.9 % 36.0 - 02/19 MH 48.0 /2015 [facility] HEMATOLOGY Hgb 9.3 g/dL 12.0 - 02/19 MH 16.0 /2015 [facility] HEMATOLOGY RBC 3.85 M/CMM 4.20 - 05 MH 5.40 /2015 [facility] HEMATOLOGY WBC 15.9 K/CMM 3.7 - 10.4 05 [facility] CHEM PANEL AST 18 unit/L 0 - 37 02/18 [facility] CHEM PANEL Albumin Lvl 2.7 g/dL 3.5 - 5.0 02/18 [facility] CHEM PANEL Total 6.9 g/dL 6.4 - 8.4 02/18 Protein [facility] CHEM PANEL Alk Phos 155 unit/L 39 - 136 02/18 [facility] CHEM PANEL Bili Unable to 0.0 - 1.0 02/18 Indirect [facility] CHEM PANEL Bili Direct null 0.0 - 0.3 02/18 [facility] CHEM PANEL Bili Total 0.2 mg/dL 0.2 - 1.3 02/18 [facility] CHEM PANEL ALT 43 unit/L 0 - 65 02/18 [facility] CHEM PANEL A/G Ratio 0.6 0.7 - 1.6 02/18 [facility] CHEM PANEL Globulin 4.2 g/dL 2.0 - 4.0 02/18 [facility] ELECTROLYT AGAP 12.9 meq/L 10.0 - 02/18 ES 20.0 [facility] ELECTROLYT eGFR 113 02/18 Result Comment: The eGFR is calculated using the CKD-EPI formula. In most young, healthy individuals the eGFR will be >90 mL/ min/1.73m2. The eGFR declines with age. An eGFR of 60-89 may be normal in ES mL/min/1.7 some populations, particularly the elderly, for whom the CKD-EPI formula has not been extensively validated. Use of the eGFR is not recommended in the following populations: [facility] 3m2 Individuals with unstable creatinine concentrations, including patients and those with serious co-morbid conditions. Patients with extremes in muscle mass or diet. The data above are obtained from the National Kidney Disease Education Program (NKDEP) which additionally recommends that when the eGFR is used in patients with extremes of body mass index for purposes of drug dosing, the eGFR should be multiplied by the estimated BMI. ELECTROLYT BUN 6 mg/dL 7 - 22 02/18 [facility] ELECTROLYT Glucose Lvl 107 mg/dL 70 - 99 02/18 [facility] ELECTROLYT Calcium Lvl 8.4 mg/dL 8.5 - 10.5 02/18 [facility] ELECTROLYT Potassium 3.9 meq/L 3.5 - 5.1 02/18 [facility] Lvl [facility] ELECTROLYT Creatinine 0.70 mg/dL 0.50 - 02/18 [facility] Lvl 1.40 [facility] ELECTROLYT Chloride Lvl 107 meq/L 95 - 109 02/18 [facility] ELECTROLYT CO2 24 meq/L 24 - 32 02/18 [facility] ELECTROLYT Sodium Lvl 140 meq/L 135 - 145 02/18 [facility] HEMATOLOGY Sed Rate 30 mm/h 0 - 20 02/18 [facility] HEMATOLOGY MPV 7.9 fL 7.4 - 10.4 02/18 [facility] HEMATOLOGY RDW 16.4 % 11.5 - 02/18 14.5 [facility] HEMATOLOGY Platelet 357 K/CMM 133 - 450 02/18 [facility] MCHC 32.6 g/dL 32.0 - 02/18 36.0 /2015 [facility] HEMATOLOGY RBC 3.82 M/CMM 4.20 - 02/18 5.40 [facility] HEMATOLOGY MCH 24.5 pg 27.0 - 02/18 31.0 [facility] HEMATOLOGY Hct 28.7 % 36.0 - 02/18 48.0 /2015 [facility] HEMATOLOGY MCV 75.2 fL 80.0 - 02/18 98.0 [facility] HEMATOLOGY Hgb 9.4 g/dL 12.0 - 02/18 16.0 [facility] WBC 16.8 K/CMM 3.7 - 10.4 02/18 [facility] HEMATOLOGY Monocytes 9.9 % 2.0 - 12.0 02/18 [facility] HEMATOLOGY Eosinophils 2.0 % 0.0 - 4.0 05 [facility] HEMATOLOGY Lymphocytes 20.1 % 20.0 - 05/ MH 40.0 /2015 [facility] HEMATOLOGY Segs 67.6 % 45.0 - 05/ MH 75.0 /2015 [facility] HEMATOLOGY Microcyte 1+ None Seen 02/18 [facility] *ABN* (02/19/16 6:13 AM) HEMATOLOGY Basophils # 0.1 K/CMM 0.0 - 0.2 02/18 [facility] HEMATOLOGY Eosinophils 0.3 K/CMM 0.0 - 0.5 05/ MH # /2016 [facility] HEMATOLOGY Lymphocytes 3.4 K/CMM 1.0 - 5.5 05/ MH # /2015 [facility] HEMATOLOGY Basophils 0.4 % 0.0 - 1.0 02/18 [facility] HEMATOLOGY Segs-Bands # 11.3 K/CMM 1.5 - 8.1 02/18 [facility] HEMATOLOGY Monocytes # 1.7 K/CMM 0.0 - 0.8 02/18 [facility] IMMUNOLOGY C-REACTIVE 14.7 mg/L <=2.9 mg/L 02/18 PROTEIN [facility] CHEM PANEL Total 7.0 g/dL 6.4 - 8.4 02/17 Protein [facility] CHEM PANEL Albumin Lvl 2.8 g/dL 3.5 - 5.0 02/17 [facility] CHEM PANEL Bili Direct null 0.0 - 0.3 02/17 [facility] CHEM PANEL Bili Total 0.2 mg/dL 0.2 - 1.3 02/17 [facility] CHEM PANEL Alk Phos 150 unit/L 39 - 136 02/17 [facility] CHEM PANEL Bili Unable to 0.0 - 1.0 02/17 Indirect Calculate [facility] CHEM PANEL ASPARTATE 33 unit/L 0 - 37 02/17 TRANSAMINASE [facility] CHEM PANEL ALANINE 58 unit/L 0 - 65 02/17 AMINOTRANSFE [facility] RASE CHEM PANEL A/G Ratio 0.7 0.7 - 1.6 02/17 [facility] CHEM PANEL Globulin 4.2 g/dL 2.0 - 4.0 02/17 [facility] ELECTROLYT Sodium Lvl 142 meq/L 135 - 145 02/17 ES [facility] ELECTROLYT Creatinine 0.90 mg/dL 0.50 - 02/17 MH ES Lvl 1.40 [facility] ELECTROLYT CO2 26 meq/L 24 - 32 02/17 ES [facility] ELECTROLYT Chloride Lvl 109 meq/L 95 - 109 02/17 ES [facility] ELECTROLYT Potassium 3.7 meq/L 3.5 - 5.1 02/17 ES Lvl /2015 [facility] ELECTROLYT BUN 6 mg/dL 7 - 22 02/17 ES [facility] ELECTROLYT Glucose Lvl 107 mg/dL 70 - 99 02/17 ES [facility] ELECTROLYT eGFR 83 02/17 Result Comment: The eGFR is calculated using the CKD-EPI formula. In most young, healthy individuals the eGFR will be >90 mL/ min/1.73m2. The eGFR declines with age. An eGFR of 60-89 may be normal in ES mL/min/1. some populations, particularly the elderly, for whom the CKD-EPI formula has not been extensively validated. Use of the eGFR is not recommended in the following populations: [address] Individuals with unstable creatinine concentrations, including patients and those with serious co-morbid conditions. Patients with extremes in muscle mass or diet. The data above are obtained from the National Kidney Disease Education Program (NKDEP) which additionally recommends that when the eGFR is used in patients with extremes of body mass index for purposes of drug dosing, the eGFR should be multiplied by the estimated BMI. ELECTROLYT Calcium Lvl 8.4 mg/dL 8.5 - 10.5 02/17 [facility] ELECTROLYT AGAP 10.7 meq/L 10.0 - 02/17 ES 20.0 /2015 [facility] HEMATOLOGY Segs-Bands # 9.6 K/CMM 1.5 - 8.1 02/17 [facility] HEMATOLOGY Eosinophils 0.4 K/CMM 0.0 - 0.5 02/17 MH # [facility] HEMATOLOGY Lymphocytes 2.6 K/CMM 1.0 - 5.5 02/17 MH # [facility] HEMATOLOGY Basophils 0.5 % 0.0 - 1.0 02/17 [facility] HEMATOLOGY Monocytes # 1.5 K/CMM 0.0 - 0.8 02/17 [facility] HEMATOLOGY Microcyte 1+ None Seen 02/17 [facility] *ABN* (02/18/16 5:29 AM) HEMATOLOGY Basophils # 0.1 K/CMM 0.0 - 0.2 02/17 [facility] HEMATOLOGY Monocytes 10.7 % 2.0 - 12.0 02/17 [facility] HEMATOLOGY Eosinophils 2.5 % 0.0 - 4.0 02/17 [facility] HEMATOLOGY Lymphocytes 18.5 % 20.0 - 02/17 MH 40.0 /2015 [facility] HEMATOLOGY Segs 67.8 % 45.0 - 02/17 MH 75.0 /2015 [facility] HEMATOLOGY WBC 14.2 K/CMM 3.7 - 10.4 02/17 [facility] HEMATOLOGY MCHC 30.9 g/dL 32.0 - 02/17 MH 36.0 /2015 [facility] HEMATOLOGY MCH 23.4 pg 27.0 - 02/17 MH 31.0 [facility] HEMATOLOGY MCV 75.8 fL 80.0 - 02/17 MH 98.0 [facility] HEMATOLOGY Hct 32.6 % 36.0 - 02/17 MH 48.0 /2015 [facility] HEMATOLOGY Hgb 10.1 g/dL 12.0 - 02/17 16.0 [facility] HEMATOLOGY Platelet 373 K/CMM 133 - 450 02/17 [facility] HEMATOLOGY MPV 8.0 fL 7.4 - 10.4 02/17 [facility] HEMATOLOGY RDW 16.4 % 11.5 - 02/17 14.5 [facility] HEMATOLOGY RBC 4.31 M/CMM 4.20 - 02/17 MH 5.40 /2015 [facility] TOXICOLOGY Vanco Tr TND 0600 02/17 [facility] TOXICOLOGY Vanco Tr 12.8 ug/ml 02/17 [facility] IMMUNOLOGY Hep Bs Ab 131.4 <=7.4 02/16 mIU/mL mIU/mL [facility] IMMUNOLOGY Hep A IgM Negative Negative 02/16 [facility] *NA* (02/17/16 12:14 PM) IMMUNOLOGY Hep B Core Negative Negative 02/16 [facility] *NA* (02/17/16 12:14 PM) IMMUNOLOGY Hep C Ab Negative 02/16 [facility] *NA* (02/17/16 12:14 PM) IMMUNOLOGY Hep Bs Ag Negative Negative 02/16 [facility] *NA* (02/17/16 12:14 PM) Abdomen Abdomen Study: Abdomen acute series w chest 1 view DX 02/16 - acute acute series /2015 - [facility] series w w chest 1 chest 1 view DX view DX Clinical Indication: Diffuse abdominal pain Read by: Pierre Delgado MD Dictated Date/time: 02/17/16 10:55 Electronically Signed by: Pierre Delgado MD 02/17/16 10:56 FINAL REPORT Comparison: 02/15/2016 FINDINGS: CHEST: The cardiac silhouette is normal in size. Lungs are without consolidation or congestion. No pleural effusion or pneumothorax is seen. Bony thorax is unremarkable. ABDOMEN: Multiple views of the abdomen show mildly dilated air-filled loops of large bowel. No intraperitoneal free air is seen. No suspicious calcifications are noted. Osseous structures are unremarkable. IMPRESSION: 1. Mildly dilated air-filled loops of large bowel, may represent a mild colonic ileus. 2. No acute cardiopulmonary disease. SL: [id number] CHEM PANEL Procalcitoni null 0.00 - 02/16 n Lvl 0.10 [facility] CHEM PANEL A/G Ratio 0.6 0.7 - 1.6 02/16 [facility] CHEM PANEL Globulin 4.3 g/dL 2.0 - 4.0 02/16 [facility] CHEM PANEL Bili 0.2 mg/dL 0.0 - 1.0 02/16 [facility] CHEM PANEL Bili Direct 0.1 mg/dL 0.0 - 0.3 02/16 [facility] CHEM PANEL Bili Total 0.3 mg/dL 0.2 - 1.3 02/16 [facility] CHEM PANEL Total 7.0 g/dL 6.4 - 8.4 02/16 Protein [facility] CHEM PANEL Alk Phos 159 unit/L 39 - 136 02/16 [facility] CHEM PANEL ASPARTATE 59 unit/L 0 - 37 02/16 TRANSAMINASE [facility] CHEM PANEL ALANINE 71 unit/L 0 - 65 02/16 AMINOTRANSFE [facility] RASE CHEM PANEL Albumin Lvl 2.7 g/dL 3.5 - 5.0 02/16 [facility] ELECTROLYT AGAP 13.5 meq/L 10.0 - 02/16 ES 20.0 [facility] ELECTROLYT BUN 9 mg/dL 7 - 22 02/16 ES /2015 [facility] ELECTROLYT Creatinine 0.90 mg/dL 0.50 - 02/16 ES Lvl 1.40 /2015 [facility] ELECTROLYT Sodium Lvl 139 meq/L 135 - 145 02/16 [facility] ELECTROLYT eGFR 83 02/16 Result Comment: The eGFR is calculated using the CKD-EPI formula. In most young, healthy individuals the eGFR will be >90 mL/ min/1.73m2. The eGFR declines with age. An eGFR of 60-89 may be normal in mL/min/1. some populations, particularly the elderly, for whom the CKD-EPI formula has not been extensively validated. Use of the eGFR is not recommended in the following populations: [address] Individuals with unstable creatinine concentrations, including patients and those with serious co-morbid conditions. Patients with extremes in muscle mass or diet. The data above are obtained from the National Kidney Disease Education Program (NKDEP) which additionally recommends that when the eGFR is used in patients with extremes of body mass index for purposes of drug dosing, the eGFR should be multiplied by the estimated BMI. ELECTROLYT Potassium 3.5 meq/L 3.5 - 5.1 02/16 [facility] Lvl [facility] ELECTROLYT Chloride Lvl 102 meq/L 95 - 109 02/16 [facility] ELECTROLYT Calcium Lvl 8.4 mg/dL 8.5 - 10.5 02/16 [facility] ELECTROLYT CO2 27 meq/L 24 - 32 02/16 [facility] ELECTROLYT Glucose Lvl 105 mg/dL 70 - 99 02/16 [facility] Abdomen 2 Abdomen 2 Abdomen 2 views DX 02/15 - views DX views - [facility] CLINICAL INDICATION: Abdominal distension Read by: Dexter Patterson MD Dictated Date/time: 02/16/16 20:59 Electronically Signed by: Dexter Patterson MD 02/16/16 21:04 FINAL REPORT COMPARISON: 02/16/2016, 1016 hours, 02/15/2016 FINDINGS: There is mild interval increase in distention of small and large bowel loops in the abdomen. Air-fluid levels are noted on the upright study. NG tube has been removed in the interim. No tract calculi are evident. No free air is noted underneath the hemidiaphragms. There is mild bibasilar atelectasis. No significant bony abnormality is noted. IMPRESSION: Findings suggestive of generalized ileus. Imaging follow-up is recommended. SL: [id number] CHEM PANEL B/C Ratio 11 6 - 25 02/15 [facility] Abdomen 2 Abdomen 2 Abdomen 2 views: The NG tube tip is in the distal stomach or duodenal bulb. There is no small bowel distention. There is more gas in the colon with a fluid level in the hepatic flexure.. Evacuation of f - views DX views DX ecal material from the right colon is seen since previous exam. There is no evidence of pneumoperitoneum. There is no other significant change. [facility] Read by: Alessandro Loya MD [id number] Dictated Date/time: 02/16/16 10:38 Electronically Signed by: Alessandro Loya MD 02/16/16 10:40 FINAL REPORT Abdomen AP Abdomen AP ABDOMEN, 1 VIEW 02/14 - DX DX /2015 [facility] HISTORY: Feeding intolerance; vomiting, constipation Read by: Dung Ashby MD Dictated Date/time: 02/15/16 20:29 Electronically Signed by: Dung Ashby MD 02/15/16 20:31 FINAL REPORT COMPARISON: Acute abdominal series and CT abdomen/pelvis dated 02/15/2016 FINDINGS: Bowel gas pattern is nonobstructive. Nasogastric tube terminates in the stomach. No acute osseous abnormality. SL: [id number] CARDIAC CK MB null 0.5 - 3.6 02/14 ENZYMES /2015 [facility] CARDIAC Total CK 124 unit/L 12 - 191 02/14 ENZYMES [facility] CARDIAC Troponin-I null 0.00 - 02/14 ENZYMES 0.40 /2015 [facility] CARDIAC CK MB Index null 0.0 - 2.5 02/14 ENZYMES /2015 [facility] CHEM PANEL Lipase Lvl 187 unit/L 73 - 393 02/14 /2015 [facility] CHEM PANEL Amylase Lvl 77 unit/L 25 - 115 02/14 /2015 [facility] CHEM PANEL B/C Ratio 8 6 - 25 02/14 /2015 [facility] HEMATOLOGY INR 1.03 0.85 - 02/14 1.17 /2015 [facility] HEMATOLOGY PT 13.8 s 12.0 - 02/14 14.7 /2015 [facility] HEMATOLOGY PTT 32.0 s 22.9 - 02/14 35.8 /2016 [facility] URINE AND UA Leuk Est Negative Negative 02/14 STOOL /2015 [facility] (02/15/16 12:37 PM) URINE AND UA Nitrite Negative Negative 02/14 STOOL [facility] (02/15/16 12:37 PM) URINE AND UA Color Yellow Yellow 02/14 STOOL [facility] *NA* (02/15/16 12:37 PM) URINE AND UA 0.2 EU/dL 0.1 - 1.0 02/14 STOOL Urobilinogen [facility] URINE AND UA Bili Negative Negative 02/14 STOOL [facility] *NA* (02/15/16 12:37 PM) URINE AND UA Ketones Negative Negative 02/14 STOOL mg/dL mg/dL [facility] URINE AND UA Blood Negative Negative 02/14 STOOL [facility] (02/15/16 12:37 PM) URINE AND UA Glucose Negative Negative 02/14 STOOL mg/dL mg/dL [facility] URINE AND UA Protein Negative Negative 02/14 STOOL mg/dL mg/dL [facility] URINE AND UA pH 7.5 5.0 - 8.0 02/14 STOOL [facility] URINE AND UA Spec Grav 1.010 <=1.030 02/14 STOOL [facility] URINE AND UA Turbidity Clear Clear 02/14 STOOL [facility] (02/15/16 12:37 PM) URINE AND UA RBC None Seen 0 - 2 02/14 STOOL [facility] (02/15/16 12:37 PM) URINE AND UA Bacteria Occasional None Seen 02/14 STOOL /HPF /HPF [facility] URINE AND UA WBC 0-2 /HPF None Seen 02/14 STOOL /HPF [facility] URINE AND UA Sq Epi Few /LPF Few /LPF 02/14 STOOL [facility] Abdomen/Pe Abdomen/Pelv Patient Name: MARNIE KATHLEEN 02/14 - lvis w IV is w IV /2015 - [facility] contrast contrast CT : 1960; Age: 55 years y/o Female CT MR: [id number] Read by: Dino Pérez MD Dictated Date/time: 02/15/16 15:53 Electronically Signed by: Dino Pérez MD 02/15/16 16:03 FINAL REPORT Study: Abdomen/Pelvis w IV contrast CT 02/15/2016 11:58 AM CDT Ordering Physician: Sandy Loredo Clinical Indication: Abdominal pain, acute; upper abdominal pain and tenderness. Nausea. Intoxication. Comparison: CT abdomen pelvis 07/29/2015. Acute abdomen series from today. TECHNIQUE: Helical imaging was performed diaphragm through the symphysis with multiplanar reformations obtained. 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 Bilateral dependent lung subsegmental atelectasis is seen. No pleural or pericardial effusion is identified. SOLID ORGANS: Liver is diffusely fatty. Gallbladder surgically absent. Mild biliary dilatation is again seen, likely related to cholecystectomy. The spleen, pancreas, and bilateral adrenal glands within normal limits. Mild right pelvic caliectasis is seen without hydroureter. No perinephric fat edema is seen. This likely represents a chronic finding No renal mass or collection is identified. No renal or ureteral calculi are seen. Excretion of contrast is seen from bilateral kidneys on delayed images. BOWEL: Large and small bowel is normal in caliber. Thickening of the stomach antral wall is again seen. No surrounding edema or extraluminal air/ collection is seen. Moderately large amount of stool is s een throughout the colon. No bowel inflammation is seen. Appendix is not identified. PERITONEUM: No intraperitoneal free air is seen. No intraperitoneal free fluid is identified. RETROPERITONEUM: No adenopathy. No aortic aneurysm is seen. PELVIS: The urinary bladder is distended. Uterus is absent. MUSCULOSKELETAL: No osseous destructive lesions are seen. IMPRESSION: 1. Stomach antral thickening again seen, which may related to nondistention or gastritis. 2. Constipation. 3. Status post hysterectomy and cholecystectomy. 4. Mild right hydronephrosis is likely chronic. No definite ureteral calculus or obstructive lesion is seen. 5. Distended urinary bladder. 6. Hepatic steatosis. SL: [id number] Abdomen Abdomen Clinical Indication: Abdominal pain, acute; 02/14 - acute acute series /2015 - [facility] series w w chest 1 Comparison: None chest 1 view DX view DX Read by: Minh Valdez MD Dictated Date/time: 02/15/16 15:01 Electronically Signed by: Minh Valdez MD 02/15/16 15:03 FINAL REPORT 1 view chest with 2 views abdomen Comparison chest radiograph 12/09/2015 Chest radiograph demonstrates mild dependent atelectasis bilaterally. No free air beneath the diaphragm. Supine and upright views of the abdomen demonstrate a generous amount of stool throughout the col on. No small bowel obstruction or distention. No fluid level or free air. IMPRESSION: Large amount of colonic stool. Correlate clinically for constipation. No other acute findings. SL: [id number] Spine Spine EXAM: CT SCAN OF CERVICAL SPINE WITHOUT CONTRAST 01/03 - [facility] cervical cervical wo /2015 - [facility] contrast CT Center contrast CT DATE: 01/04/2016 Read by: Harmeet Wang MD Dictated Date/time: 01/04/16 12:46 Electronically Signed by: Harmeet Wang MD 01/04/16 12:51 FINAL REPORT INDICATION: M 50.30, M 48.02, M 50.80. Neck pain and arm numbness for duration of 4 months. TECHNIQUE: Axial slices obtained through the cervical spine at appropriate intervals without contrast. Sagittal and coronal reformatted images were obtained. FINDINGS: Straightening of cervical lordosis is present. No fractures or destructive osseous lesions are seen. Anterior plate and screw fixation of the C3, C4, and C5 vertebral bodies is evident. Instrumentation is appropriately positioned, without evidence of loosening. Solid anterior interbody fusion is evident at the C3-C6 levels.. Findings at specific levels: C2-C3: 1 mm broad-based posterior protrusion is evident, eccentric to the left. Central canal is patent. Bilateral neural foramina appear patent. Mild bilateral facet arthropathy is evident, worse on the left. C3-C4: Solid anterior interbody fusion is evident. Central canal and right neural foramen are patent. Mild left neural foraminal stenosis is evident. Tenuous bilateral facetal fusion is present. C4-C5: Solid anterior interbody fusion is evident. 2 mm left posterolateral spondylotic ridge slightly effaces the left anterior aspect of thecal sac. Central canal remains patent. Right neural foramen is patent. Moderate left neural foraminal stenosis is evident. Moderate left and mild right facet arthropathy is seen. C5-C6: Solid anterior interbody fusion is evident. Central canal is patent. Mild bilateral neural foraminal stenosis is evident. Bilateral osseous facetal fusion is evident. C6-C7: Significant disc bulge or protrusion is not seen. Central canal is patent. Mild left neural foraminal stenosis is evident. The right neural foramen is patent. Moderate left and mild right facet arthropathy is seen. C7-T1: Significant disc bulge or protrusion is not seen. Central canal is patent. Bilateral neural foramina are patent. [id number] bilateral facet arthropathy is evident. IMPRESSIONS: 1. Solid anterior interbody fusion at the C3-C6 levels. 2. 1 mm broad-based posterior protrusion at the C2-C3 level, eccentric to the left. 3. 2 mm left posterolateral spondylotic ridge at the C4-C5 level. 4. Multiple level bilateral cervical facet arthrosis and neural foraminal stenosis (predominating on the left), detailed at specific levels above. Spine Spine EXAM: MRI CERVICAL SPINE 01/03 - [facility] cervical cervical wo /2015 - [facility] DATE: 01/04/2016 9:14 AM CDT Read by: Harmeet Wang MD Dictated Date/time: 01/04/16 12:38 Electronically Signed by: Harmeet Wang MD 01/04/16 12:45 FINAL REPORT INDICATION: neck pain COMPARISON: None. TECHNIQUE: Multiplanar multisequence MRI examination of the cervical spine was performed. FINDINGS: Straightening of cervical lordosis is present. No fractures or destructive osseous lesions are seen. Patient is status post anterior plate and screw fixation of the C3, C4 and C5 vertebral bodies. Anter ior interbody fusion is evident at the C3-C6 levels. The C2-C3 and C6-T1 intervertebral discs are mildly desiccated without significant loss of height. Cervical spinal cord appears unremarkable. FINDINGS AT SPECIFIC LEVELS: C2-C3: 1 mm broad-based posterior protrusion is evident. Central canal is patent. Bilateral neural foramina appear patent. Mild bilateral facet arthrosis is evident. C3-C4: Status post anterior interbody fusion. Central canal is patent. Mild left neural foraminal stenosis is evident. Right neural foramen is patent. C4-C5: Status post anterior interbody fusion. Central canal is patent. Moderate left neural foraminal stenosis is evident. The right neural foramen is patent. C5-C6: Status post anterior interbody fusion. Central canal is patent. Right neural foramen is patent. Mild left neural foraminal stenosis is evident. C6-C7: Significant disc bulge or protrusion is not seen. Central canal is patent. Mild left neural foraminal stenosis is evident. Right neural foramen is patent. Moderate left and mild right facet arthropathy is seen. C7-T1: Significant disc bulge or protrusion is not seen. Central canal is patent. Bilateral neural foramina are patent. [id number] bilateral facet arthropathy is evident. IMPRESSION: 1. Status post anterior interbody fusion at the C3-C6 levels. 2. 1 mm broad-based posterior protrusion at the C2-C3 level. 3. Multiple level bilateral cervical neural foraminal stenosis and facet arthrosis, detailed at specific levels above. Cardiac Cardiac Cardiac SPECT stress and rest, myocardial perfusion wall motion, and myocardial perfusion ejection fraction, 12/12/201512/12 Sugar SPECT SPECT [facility] multi studies NM studies NM HISTORY: Chest pain. Read by: Homer Martínez MD Dictated Date/time: 12/12/15 15:58 Electronically Signed by: Homer Martínez MD 12/12/15 16:00 FINAL REPORT TECHNIQUE: Pharmacologic stress was performed after bolus infusion of 0.4 mg/ 5 ml Lexiscan, followed by 5 ml saline flush. 15 seconds later, 31.8 mCi of technetium labeled Cardiolite was injected. The resting exam was performed by injecting 10.5 mCi of technetium labeled Cardiolite. Horizontal short axis and vertical long and short axis images were obtained. FINDINGS: The cardiac SPECT stress and rest images demonstrate no fixed or reversible perfusion defects. The left ventricular wall motion study demonstrates no abnormality. The left ventricular ejection fraction equals 74 %. IMPRESSION: Normal cardiac SPECT with stress and rest. Normal left ventricular wall motion. Normal left ventricular ejection fraction. Chest Chest 1view CHEST PORTABLE ONE VIEW 12/09 [facility] 1[facility] DX History: 55-year-old with chest pain Read by: John Abbott MD Dictated Date/time: 12/09/15 12:56 Electronically Signed by: John Abbott 12/09/15 12:57 FINAL REPORT Comparison: 09/05/2015 Findings: The right hemidiaphragm is elevated The lungs are expanded and no infiltrate, mass or pleural effusion seen. Perihilar vessels are unremarkable. The cardiomediastinal structures are within normal limits. Osseous structure normal, status post cervical ACDF. IMPRESSION: There is no active cardio pulmonary abnormality. ANEMIA Ferritin Lvl 8 ng/mL 5 - 204 09/06 [facility] ANEMIA UIBC 295 ug/dl 110 - 370 09/06 [facility] ANEMIA % S[place] Fe 8 % 12 - 57 09/06 [facility] ANEMIA Iron 27 ug/dl 30 - 160 09/06 [facility] ANEMIA TIBC 322 ug/dl 228 - 428 09/06 STUDY /2014 [facility] ANEMIA Folate Lvl 10.7 ng/mL >=3.0 09/06 STUDY ng/mL /2014 [facility] ANEMIA Vitamin B12 1001 pg/mL 254 - 1320 09/06 STUDY Lvl /2014 [facility] CHEM PANEL LDH 254 unit/L 98 - 192 09/06 [facility] HEMATOLOGY Retic Auto 2.2 % 0.5 - 1.5 09/06 [facility] CARDIAC Troponin-I null 0.00 - 09/05 ENZYMES 0.40 [facility] CARDIAC CK MB Index null 0.0 - 2.5 09/05 ENZYMES /2014 [facility] CARDIAC CK MB null 0.5 - 3.6 09/05 ENZYMES /2014 [facility] CARDIAC Total CK 143 unit/L 12 - 191 09/05 ENZYMES /2014 [facility] HEMATOLOGY Platelet 271 K/CMM 133 - 450 09/05 [facility] HEMATOLOGY MPV 8.4 fL 7.4 - 10.4 09/05 [facility] HEMATOLOGY WBC 16.5 K/CMM 3.7 - 10.4 09/05 [facility] HEMATOLOGY RBC 4.14 M/CMM 4.20 - 09/05 5.40 /2014 [facility] HEMATOLOGY RDW 17.5 % 11.5 - 09/05 14.5 /2014 [facility] HEMATOLOGY Hct 32.2 % 36.0 - 09/05 48.0 /2014 [facility] HEMATOLOGY Hgb 9.8 g/dL 12.0 - 09/05 16.0 [facility] HEMATOLOGY MCHC 30.3 g/dL 32.0 - 09/05 36.0 /2014 [facility] HEMATOLOGY MCV 77.6 fL 80.0 - 09/05 98.0 /2014 [facility] HEMATOLOGY MCH 23.5 pg 27.0 - 09/05 31.0 [facility] HEMATOLOGY Monocytes # 1.6 K/CMM 0.0 - 0.8 09/05 [facility] HEMATOLOGY Eosinophils 0.2 K/CMM 0.0 - 0.5 09/05 # /2014 [facility] HEMATOLOGY Basophils # 0.1 K/CMM 0.0 - 0.2 09/05 [facility] HEMATOLOGY Microcyte 1+ None Seen 09/05 [facility] *ABN* (09/05/15 5:36 PM) HEMATOLOGY Eosinophils 1.3 % 0.0 - 4.0 09/05 [facility] HEMATOLOGY Monocytes 9.8 % 2.0 - 12.0 09/05 [facility] HEMATOLOGY Basophils 0.9 % 0.0 - 1.0 09/05 [facility] HEMATOLOGY Segs-Bands # 10.2 K/CMM 1.5 - 8.1 09/05 [facility] HEMATOLOGY Lymphocytes 4.3 K/CMM 1.0 - 5.5 09/05 [facility] # /2015 [facility] HEMATOLOGY Lymphocytes 26.0 % 20.0 - 09/05 MH 40.0 [facility] HEMATOLOGY Segs 62.0 % 45.0 - 09/05 MH 75.0 /2014 [facility] Chest Chest 1view PORTABLE CHEST (chest 1 view) 09/05 - 1view DX - [facility] Read by: Bernabe Benoit MD Dictated Date/time: 09/05/15 18:17 HISTORY: Status post PICC placement. Evaluate catheter position. Electronically Signed by: Bernabe Benoit MD 09/05/15 18 :18 FINAL REPORT TECHNIQUE: A portable examination of the chest was obtained following PICC placement. Comparison is made to 11/17/2014 FINDINGS: 1. The tip of the right upper extremity PICC is in the lower superior vena cava. 2. No active disease the lungs are clear. There are no pleural effusions. 3. The heart is normal in size. 4. There postoperative change involving the cervical spine. The regional skeleton is otherwise unremarkable. Coding: Chest 1view CPT Code: 77259 SL: 16 Bernabe Benoit M.D. CHEM PANEL Bili 0.1 mg/dL 0.0 - 1.0 07/29 [facility] CHEM PANEL Bili Total 0.2 mg/dL 0.2 - 1.3 07/29 [facility] CHEM PANEL Bili Direct 0.1 mg/dL 0.0 - 0.3 07/29 [facility] CHEM PANEL Alk Phos 149 unit/L 39 - 136 07/29 [facility] CHEM PANEL AST 18 unit/L 0 - 37 07/29 [facility] CHEM PANEL ALT 18 unit/L 0 - 65 07/29 [facility] CHEM PANEL A/G Ratio 0.7 0.7 - 1.6 07/29 [facility] CHEM PANEL Globulin 4.4 g/dL 2.0 - 4.0 07/29 [facility] CHEM PANEL Albumin Lvl 2.9 g/dL 3.5 - 5.0 07/29 [facility] CHEM PANEL Total 7.3 g/dL 6.4 - 8.4 07/29 [facility] CHEM PANEL Lipase Lvl 237 unit/L 73 - 393 07/29 [facility] ELECTROLYT AGAP 8.4 meq/L 10.0 - 07/29 ES 20.0 [facility] ELECTROLYT eGFR 84 07/29 Result Comment: The eGFR is calculated using the CKD-EPI formula. In most young, healthy individuals the eGFR will be >90 mL/ min/1.73m2. The eGFR declines with age. An eGFR of 60-89 may be normal in mL/min/1.7 some populations, particularly the elderly, for whom the CKD-EPI formula has not been extensively validated. Use of the eGFR is not recommended in the following populations: [address] Individuals with unstable creatinine concentrations, including patients and those with serious co-morbid conditions. Patients with extremes in muscle mass or diet. The data above are obtained from the National Kidney Disease Education Program (NKDEP) which additionally recommends that when the eGFR is used in patients with extremes of body mass index for purposes of drug dosing, the eGFR should be multiplied by the estimated BMI. ELECTROLYT Calcium Lvl 8.6 mg/dL 8.5 - 10.5 07/29 [facility] ELECTROLYT Chloride Lvl 106 meq/L 95 - 109 07/29 [facility] ELECTROLYT CO2 29 meq/L 24 - 32 07/29 [facility] ELECTROLYT Potassium 4.4 meq/L 3.5 - 5.1 07/29 ES Lv [facility] ELECTROLYT Sodium Lvl 139 meq/L 135 - 145 07/29 [facility] ELECTROLYT Creatinine 0.9 mg/dL 0.5 - 1.4 07/29 ES Lvl [facility] ELECTROLYT Glucose Lvl 113 mg/dL 70 - 99 07/29 [facility] ELECTROLYT BUN 6 mg/dL 7 - 22 07/29 [facility] HEMATOLOGY Segs 54.5 % 45.0 - 07/29 75.0 [facility] HEMATOLOGY Lymphocytes 35.0 % 20.0 - 07/29 40.0 [facility] HEMATOLOGY Segs-Bands # 8.9 K/CMM 1.5 - 8.1 07/29 [facility] HEMATOLOGY Basophils # 0.1 K/CMM 0.0 - 0.2 07/29 [facility] HEMATOLOGY Eosinophils 0.3 K/CMM 0.0 - 0.5 07/29 [facility] HEMATOLOGY Monocytes # 1.3 K/CMM 0.0 - 0.8 07/29 [facility] HEMATOLOGY Lymphocytes 5.8 K/CMM 1.0 - 5.5 07/29 # /2014 [facility] HEMATOLOGY Anisocyte 1+ None Seen 07/29 [facility] *ABN* (07/29/15 4:40 PM) HEMATOLOGY Large Plt Slight 07/29 [facility] HEMATOLOGY Microcyte 1+ None Seen 07/29 [facility] *ABN* (07/29/15 4:40 PM) HEMATOLOGY Schistocyte 1-3 per HPF None Seen 07/29 [facility] (07/29/15 4:40 PM) HEMATOLOGY Polychrom Sight 07/29 [facility] HEMATOLOGY Monocytes 7.9 % 2.0 - 12.0 07/29 [facility] HEMATOLOGY Eosinophils 2.0 % 0.0 - 4.0 07/29 [facility] HEMATOLOGY Basophils 0.6 % 0.0 - 1.0 07/29 [facility] HEMATOLOGY MCV 77.2 fL 80.0 - 07/29 98.0 [facility] HEMATOLOGY Hct 32.6 % 36.0 - 07/29 48.0 [facility] HEMATOLOGY Hgb 9.9 g/dL 12.0 - 07/29 16.0 [facility] HEMATOLOGY RBC 4.22 M/CMM 4.20 - 07/29 5.40 /2014 [facility] HEMATOLOGY WBC 16.4 K/CMM 3.7 - 10.4 07/29 [facility] HEMATOLOGY Platelet 328 K/CMM 133 - 450 07/29 [facility] HEMATOLOGY MPV 8.3 fL 7.4 - 10.4 07/29 [facility] HEMATOLOGY RDW 17.3 % 11.5 - 07/29 14.5 [facility] HEMATOLOGY MCHC 30.3 g/dL 32.0 - 07/29 36.0 /2014 [facility] HEMATOLOGY MCH 23.4 pg 27.0 - 07/29 31.0 [facility] URINE AND UA Spec Grav <=1.005 <=1.030 07/29 [facility]
*NA*< [facility] br/>( 4:40 PM) URINE AND UA Color Yellow Yellow 07/29 [facility] *NA* (07/29/15 4:40 PM) URINE AND UA Turbidity Clear Clear 07/29 [facility] (07/29/15 4:40 PM) URINE AND UA Protein Negative Negative 07/29 [facility]OOL [facility] (07/29/15 4:40 PM) URINE AND UA Glucose Negative Negative 07/29 STOOL [facility] (07/29/15 4:40 PM) URINE AND UA pH 6.0 5.0 - 8.0 07/29 [facility] URINE AND UA Blood Negative Negative 07/29 [facility] (07/29/15 4:40 PM) URINE AND UA 0.2 EU/dL 0.1 - 1.0 07/29 [facility] Urobilinogen [facility] URINE AND UA Bili Negative Negative 07/29 [facility] *NA* (07/29/15 4:40 PM) URINE AND UA Leuk Est Negative Negative 07/29 STOOL [facility] (07/29/15 4:40 PM) URINE AND UA Ketones Negative Negative 07/29 [facility] *NA* (07/29/15 4:40 PM) URINE AND UA Nitrite Negative Negative 07/29 [facility] (07/29/15 4:40 PM) URINE AND UA Bacteria Occasional None Seen 07/29 [facility] /HPF /HPF [facility] URINE AND UA RBC 0-2 /HPF 0 - 2 07/29 [facility] URINE AND UA WBC 0-2 /HPF None Seen 07/29 [facility] /HPF [facility] URINE AND UA Sq Epi Occasional Few /LPF 07/29 [facility] /LPF [facility] ED ED EXAM: CT ABDOMEN AND PELVIS WITH IV CONTRAST 07/29 - Abdomen/Pe Abdomen/Pelv /2014 - [facility] lvis IV is IV contrast contrast only CT only CT DATE: Jul 29, 2015 07:05:00 PM Read by: Dino Pérez MD Dictated Date/time: 07/29/15 19:27 Electronically Signed by: Dino Pérez MD 07/29/15 19:33 FINAL REPORT CLINICAL INDICATIONS: Nausea and vomiting and abdominal pain 4-2 weeks the TECHNIQUE: Multiple helical of abdomen and pelvis from the level of the domes of the diaphragm through the symphysis pubis after the administration of intravenous contrast. Axial, sagittal and coronal r eformats are provided. Delayed images through the abdomen were acquired. COMPARISON: CT pelvis 10/28/2014.. FINDINGS: There is bibasilar subsegmental atelectasis. Lingula calcified granuloma is seen. Elevation of the right hemidiaphragm is noted. No pleural or pericardial effusion is identified Gallbladder is not seen. Mild biliary dilatation is likely related to cholecystectomy. The liver, spleen, bilateral adrenal glands, pancreas, and bilateral kidneys are within normal limits. No subdiaphragmatic lymphadenopathy is seen. No intraperitoneal free air or fluid is identified. The large and small bowel are normal in caliber. . Prominence of the colonic wall is seen. Thickening of the gastric antral wall is seen without surrounding edema. The appendix is not identified.. Uterus is absent. No osseous destructive lesions are seen. Small fat containing right inguinal hernia seen without inflammation. IMPRESSION: 1. Mild thickening of the stomach antral wall may be related to nondistention or gastritis. 2. Mild prominence of the cecal and ascending colon roberson is likely related to nondistention. 3. Status post cholecystectomy and hysterectomy. Appendix not identified. SL: 14 HEMATOLOGY Basophils # 0.1 K/CMM 0.0 - 0.2 11/19 [facility] [place] /2015 [place] HEMATOLOGY Segs-Bands # 15.6 K/CMM 1.5 - 8.1 11/19 [facility] [place] /2014 [place] HEMATOLOGY Eosinophils 0.0 K/CMM 0.0 - 0.5 11/19 [facility] [place] # /2015 [place] HEMATOLOGY Monocytes # 1.8 K/CMM 0.0 - 0.8 11/19 [facility] [place] /2015 [place] HEMATOLOGY Lymphocytes 5.6 K/CMM 1.0 - 5.5 / [facility] [place] # /2015 [place] HEMATOLOGY Segs 67.7 % 45.0 - 11/19 [facility] [place] 75.0 /2014 [place] HEMATOLOGY Lymphocytes 24.2 % 20.0 - 11/19 [facility] [place] 40.0 /2015 [place] HEMATOLOGY Monocytes 7.7 % 2.0 - 12.0 11/19 [facility] [place] /2015 [place] HEMATOLOGY Basophils 0.3 % 0.0 - 1.0 01/30 [facility] [place] /2015 [place] HEMATOLOGY Eosinophils 0.1 % 0.0 - 4.0 11/19 [place] HEMATOLOGY MCH 27.3 pg 27.0 - 11/19 [place] 31.0 [place] HEMATOLOGY MCV 85.5 fL 80.0 - 11/19 [place] 98.0 /2014 [place] HEMATOLOGY Hct 32.9 % 36.0 - 11/19 [place] 48.0 /2014 [place] HEMATOLOGY MPV 7.3 fL 7.4 - 10.4 11/19 [place] HEMATOLOGY RDW 15.1 % 11.5 - 11/19 [facility] [place] 14.5 /2014 [place] HEMATOLOGY Platelet 356 K/CMM 133 - 450 11/19 [facility] HEMATOLOGY MCHC 31.9 g/dL 32.0 - 11/19 [place] 36.0 [place] HEMATOLOGY WBC 23.1 K/CMM 3.7 - 10.4 11/19 [facility] HEMATOLOGY RBC 3.85 M/CMM 4.20 - 11/19 [place] 5.40 /2014 [facility] HEMATOLOGY Hgb 10.5 g/dL 12.0 - 11/19 [place] 16.0 [place] CHEM PANEL Magnesium 1.9 mg/dL 1.8 - 2.4 11/17 [place] CHEM PANEL eGFR 84 11/17 1Result Comment: The eGFR is calculated using the CKD-EPI formula. In most young, healthy individuals the eGFR will be >90 mL/ min/1.73m2. The eGFR declines with age. An eGFR of 60-89 may be normal in mL/min/1.7 some populations, particularly the elderly, for whom the CKD-EPI formula has not been extensively validated. Use of the eGFR is not recommended in the following populations: [place] 3m2 Individuals with unstable creatinine concentrations, including patients and those with serious co-morbid conditions. Patients with extremes in muscle mass or diet. The data above are obtained from the National Kidney Disease Education Program (NKDEP) which additionally recommends that when the eGFR is used in patients with extremes of body mass index for purposes of drug dosing, the eGFR should be multiplied by the estimated BMI. CHEM PANEL Potassium 4.3 meq/L 3.5 - 5.1 11/17 [place] CHEM PANEL CO2 27 meq/L 24 - 32 11/17 [place] CHEM PANEL Chloride Lvl 106 meq/L 95 - 109 11/17 [place] CHEM PANEL Creatinine 0.9 mg/dL 0.5 - 1.4 11/17 [place] Lvl /2014 [place] CHEM PANEL Sodium Lvl 138 meq/L 135 - 145 11/17 [place] CHEM PANEL Glucose Lvl 153 mg/dL 70 - 99 11/17 3Interpretive Data: Adult reference range values reflect the clinical guidelines of the [place] [employer]. [place] CHEM PANEL BUN 14 mg/dL 7 - 22 11/17 [place] CHEM PANEL Alk Phos 173 unit/L 39 - 136 11/17 [place] CHEM PANEL ALT 36 unit/L 0 - 65 11/17 [place] CHEM PANEL AST 14 unit/L 0 - 37 11/17 [place] CHEM PANEL Bili Total 0.2 mg/dL 0.2 - 1.3 11/17 [place] CHEM PANEL Albumin Lvl 3.0 g/dL 3.5 - 5.0 11/17 [place] CHEM PANEL Total 7.3 g/dL 6.4 - 8.4 11/17 [place] CHEM PANEL Calcium Lvl 8.6 mg/dL 8.5 - 10.5 11/17 [place] CHEM PANEL AGAP 9.3 meq/L 10.0 - 11/17 [place] 20.0 [place] CHEM PANEL B/C Ratio 16 6 - 25 11/17 [place] CHEM PANEL Globulin 4.3 g/dL 2.0 - 4.0 11/17 [place] CHEM PANEL A/G Ratio 0.7 0.7 - 1.6 11/17 [place] CHEM PANEL Phosphorus 3.0 mg/dL 2.5 - 4.5 11/17 [place] HEMATOLOGY RBC 3.97 M/CMM 4.20 - 11/17 [place] 5.40 /2014 [place] HEMATOLOGY WBC 20.4 K/CMM 3.7 - 10.4 11/17 [place] HEMATOLOGY MPV 7.4 fL 7.4 - 10.4 11/17 [place] HEMATOLOGY RDW 15.0 % 11.5 - 11/17 [place] 14.5 [place] HEMATOLOGY Platelet 358 K/CMM 133 - 450 11/17 [place] /2014 [facility] HEMATOLOGY MCH 27.5 pg 27.0 - 11/17 [place] 31.0 /2014 [facility] HEMATOLOGY Hgb 10.9 g/dL 12.0 - 11/17 [place] 16.0 /2014 [facility] HEMATOLOGY Hct 33.8 % 36.0 - 11/17 [place] 48.0 /2014 [facility] HEMATOLOGY MCHC 32.3 g/dL 32.0 - 11/17 [place] 36.0 /2014 [facility] HEMATOLOGY MCV 85.1 fL 80.0 - 11/17 [place] 98.0 /2014 [facility] HEMATOLOGY Segs-Bands # 17.1 K/CMM 1.5 - 8.1 11/17 [place] [facility] HEMATOLOGY Monocytes # 0.7 K/CMM 0.0 - 0.8 11/17 /2014 [facility] HEMATOLOGY Lymphocytes 2.5 K/CMM 1.0 - 5.5 11/17 [place] # /2015 [facility] HEMATOLOGY Segs 84.1 % 45.0 - 11/17 [place] 75.0 /2014 [place] HEMATOLOGY Basophils 0.3 % 0.0 - 1.0 11/17 [place] HEMATOLOGY Eosinophils 0.0 % 0.0 - 4.0 11/17 [place] /2014 [facility] HEMATOLOGY Basophils # 0.1 K/CMM 0.0 - 0.2 11/17 /2014 [facility] HEMATOLOGY Monocytes 3.4 % 2.0 - 12.0 11/17 [place] /2014 [facility] HEMATOLOGY Eosinophils 0.0 K/CMM 0.0 - 0.5 11/17 [place] # /2015 [facility] HEMATOLOGY Lymphocytes 12.2 % 20.0 - 11/17 [place] 40.0 /2015 [facility] HEMATOLOGY INR 1.04 0.85 - 11/17 6Interpretive Data: RECOMMENDED RANGES FOR PROTIME INR: [facility] 1. 2.0-3.0 for most medical and surgical thromboembolic states. [place] 2.5-3.5 for artificial heart valves and recurrent embolism. INR SHOULD BE USED ONLY FOR PATIENTS ON STABLE ANTICOAGULANT THERAPY. HEMATOLOGY PT 13.6 s 12.0 - 11/17 [place] 14.7 /2014 [facility] HEMATOLOGY PTT 24.6 s 22.9 - 11/17 7Interpretive [facility] 35.8 /2015 Data: Heparin [facility] Therapeutic Range: 57 - 92 Seconds VIRAL - Influ B Negative 8 Negative 11/17 8Interpretive Data: Influenza A&B Antigen: [facility] SEROLOGY Due to the low sensitivity of this test a negative result does not exclude influenza virus infection. A diagnosis of influenza should be considered based on a patient's clinical presentation and empiric [place] (11/17/14 5:27 AM) antiviral treatment should be considered, if indicated. If more conclusive testing is desired, follow-up confirmatory testing with either viral culture or PCR is warranted. VIRAL - Influ A Negative Negative 11/17 [facility] SEROLOGY [place] (11/17/14 5:27 AM) Chest Chest 1view EXAM: 11/17 [place] - Single view chest. Read by: Manan Durham MD Dictated Date/time: 11/17/14 08:18 INDICATION: Electronically Signed by: Manan Durham MD 11/17/14 08:18 FINAL REPORT Abnormal chest sound. COMPARISON: Yesterday. IMPRESSION: 1. Support apparatus: Stable right PICC line. 2. No pneumothorax, lobar consolidation, or pleural effusion. Chest Chest CT of chest with contrast (pulmonary embolism protocol), 11/17 [facility] Pulmonary Pulmonary - Embolism Embolism CTA CTA HISTORY: Shortness of breath. Read by: Homer Martínez MD Dictated Date/time: 11/17/14 08:43 Electronically Signed by: Homer Martínez MD 11/17/14 08:49 FINAL REPORT TECHNIQUE: Sequential 2.5 mm axial images were obtained from the thoracic inlet through the hemidiaphragms following the bolus infusion of contrast. Multiplanar reconstructions were performed. DLP: 467 mGy-cm. FINDINGS: Normal heart size. Nondilated aorta and main pulmonary artery. Right subclavian line noted. No evidence of hilar or mediastinal mass or lymph node enlargement. No evidence of axillary or supraclavicular lymphadenopathy. No evidence of central, segmental, or subsegmental pulmonary emboli. Images made with the lung window demonstrate no evidence of noncalcified lung nodules, lung infiltrates, or pleural effusions. Bibasilar stranding may represent atelectasis or scarring. No evidence of interstitial lung disease. The visualized bony structures appear intact. CONCLUSION: No evidence of pulmonary emboli. Chest Chest 1view Clinical history: Central Line Placement. 11/16 [place] : 1960. Read by: Pierre Tang MD Dictated Date/time: 11/16/14 20:04 Electronically Signed by: Pierre Tang MD 11/16/14 20:05 FINAL REPORT Technique: Portable AP chest x-ray on Nov 16, 2014 07:53:00 PM compared to previous on November 15, 2014. Heart size is normal without vascular congestion. Improved lung aeration. Lungs are clear without consolidation or effusion. Right PICC line placement upper SVC. Impression: 1. No active disease in the chest status post right PICC line placement. CARDIAC Total CK 54 unit/L 12 - 191 11/16 [place] EN[facility] CARDIAC BNP 15 pg/mL <=100 11/16 5Interpretive Data: Elevated results are in line with increasing severity of [place] ENZYMES pg/mL /2014 congestive heart failure. Minor elevations between 100 and 300 [place] may be seen with Myocardial Ischemia, Sodium retaining drugs, and compensated/treated heart failure. CARDIAC Troponin-I null 0.00 - 11/16 [place] [facility] 0.40 [facility] CARDIAC CK MB null 0.5 - 3.6 11/16 [place] [facility] CARDIAC CK MB Index null 0.0 - 2.5 11/16 [place] [facility] CHEM PANEL Lactic Acid 1.2 mMol/L 0.5 - 2.2 11/16 [place] Lv [facility] CHEM PANEL eGFR 84 11/16 2Result Comment: The eGFR is calculated using the CKD-EPI formula. In most young, healthy individuals the eGFR will be >90 mL/ min/1.73m2. The eGFR declines with age. An eGFR of 60-89 may be normal in [place] mL/min/1.7 /2014 some populations, particularly the elderly, for whom the CKD-EPI formula has not been extensively validated. Use of the eGFR is not recommended in the following populations: [place] 3m2 Individuals with unstable creatinine concentrations, including patients and those with serious co-morbid conditions. Patients with extremes in muscle mass or diet. The data above are obtained from the National Kidney Disease Education Program (NKDEP) which additionally recommends that when the eGFR is used in patients with extremes of body mass index for purposes of drug dosing, the eGFR should be multiplied by the estimated BMI. CHEM PANEL BUN 14 mg/dL 7 - 22 11/16 [place] CHEM PANEL Glucose Lvl 105 mg/dL 70 - 99 11/16 4Interpretive Data: Adult reference range values reflect the clinical guidelines of the [place] [employer]. [place] CHEM PANEL CO2 24 meq/L 24 - 32 11/16 [place] CHEM PANEL Chloride Lvl 108 meq/L 95 - 109 11/16 [place] CHEM PANEL Potassium 4.1 meq/L 3.5 - 5.1 11/16 [place] CHEM PANEL Sodium Lvl 140 meq/L 135 - 145 11/16 [place] CHEM PANEL Creatinine 0.9 mg/dL 0.5 - 1.4 11/16 [place] L[facility] [place] CHEM PANEL Calcium Lvl 8.6 mg/dL 8.5 - 10.5 11/16 [place] CHEM PANEL AGAP 12.1 meq/L 10.0 - 11/16 [place] 20.0 [place] HEMATOLOGY MCV 77.1 fL 80.0 - 11/16 [place] 98.0 [place] HEMATOLOGY MPV 7.6 fL 7.4 - 10.4 11/16 [place] HEMATOLOGY MCHC 35.1 g/dL 32.0 - 11/16 [place] 36.0 [place] HEMATOLOGY Platelet 398 K/CMM 133 - 450 11/16 [place] HEMATOLOGY MCH 27.1 pg 27.0 - 11/16 [place] 31.0 [place] HEMATOLOGY RDW 15.3 % 11.5 - 11/16 [place] 14.5 /2014 [place] HEMATOLOGY Hgb 11.3 g/dL 12.0 - 11/16 [place] 16.0 [place] HEMATOLOGY RBC 4.17 M/CMM 4.20 - 11/16 [place] 5.40 /2014 [place] HEMATOLOGY WBC 17.8 K/CMM 3.7 - 10.4 11/16 [place] HEMATOLOGY Hct 32.2 % 36.0 - 11/16 [place] 48.0 /2014 [place] HEMATOLOGY Eosinophils 0.2 K/CMM 0.0 - 0.5 11/16 [place] # /2014 [place] HEMATOLOGY Basophils # 0.0 K/CMM 0.0 - 0.2 11/16 [place] HEMATOLOGY Monocytes # 1.4 K/CMM 0.0 - 0.8 11/16 [place] /2014 [place] HEMATOLOGY Basophils 0.2 % 0.0 - 1.0 11/16 [facility] HEMATOLOGY Eosinophils 1.3 % 0.0 - 4.0 11/16 [facility] HEMATOLOGY Lymphocytes 4.1 K/CMM 1.0 - 5.5 11/16 [place] # /2014 [facility] HEMATOLOGY Segs-Bands # 12.0 K/CMM 1.5 - 8.1 11/16 [facility] HEMATOLOGY Monocytes 7.9 % 2.0 - 12.0 11/16 [facility] HEMATOLOGY Segs 67.5 % 45.0 - 11/16 [place] 75.0 /2014 [facility] HEMATOLOGY Lymphocytes 23.1 % 20.0 - 11/16 [place] 40.0 [facility] Chest Chest 1view Clinical history: Dyspnea. 11/15 - [place] - [facility] : 1960. Read by: Pierre Tang MD Dictated Date/time: 11/15/14 20:22 Electronically Signed by: Pierre Tang MD 11/15/14 20:23 FINAL REPORT Technique: Portable AP chest x-ray on Nov 15, 2014 08:22:00 PM compared to previous on June 16, 2014. Heart size is normal enlarged. Shallow inspiration. Small basilar atelectasis at the left base. Right lung is clear. No effusion. Impression: 1. Shallow inspiration and small left basilar atelectasis. CHEM PANEL eGFR 84 10/29 1Result Comment: The eGFR is calculated using the CKD-EPI formula. In most young, healthy individuals the eGFR will be >90 mL/ min/1.73m2. The eGFR declines with age. An eGFR of 60-89 may be normal in mL/min/1. some populations, particularly the elderly, for whom the CKD-EPI formula has not been extensively validated. Use of the eGFR is not recommended in the following populations: [place] 3m2 Individuals with unstable creatinine concentrations, including patients and those with serious co-morbid conditions. Patients with extremes in muscle mass or diet. The data above are obtained from the National Kidney Disease Education Program (NKDEP) which additionally recommends that when the eGFR is used in patients with extremes of body mass index for purposes of drug dosing, the eGFR should be multiplied by the estimated BMI. CHEM PANEL Sodium Lvl 142 meq/L 135 - 145 10/29 [place] CHEM PANEL Potassium 3.9 meq/L 3.5 - 5.1 10/29 [place] [facility] CHEM PANEL BUN 7 mg/dL 7 - 22 10/29 [place] CHEM PANEL Glucose Lvl 91 mg/dL 70 - 99 10/29 3Interpretive Data: Adult reference range values reflect the clinical guidelines of the [place] [employer]. [place] CHEM PANEL Creatinine 0.9 mg/dL 0.5 - 1.4 10/29 [place] CHEM PANEL Calcium Lvl 8.0 mg/dL 8.5 - 10.5 10/29 [place] CHEM PANEL Chloride Lvl 112 meq/L 95 - 109 10/29 [place] CHEM PANEL CO2 23 meq/L 24 - 32 10/29 [place] CHEM PANEL AGAP 10.9 meq/L 10.0 - 10/29 [place] 20.0 [place] HEMATOLOGY MPV 8.0 fL 7.4 - 10.4 10/29 [place] HEMATOLOGY Platelet 315 K/CMM 133 - 450 10/29 [place] HEMATOLOGY RDW 15.2 % 11.5 - 10/29 [place] 14.5 [place] HEMATOLOGY MCHC 33.5 g/dL 32.0 - 10/29 [place] 36.0 /2014 [place] HEMATOLOGY MCH 28.1 pg 27.0 - 10/29 [place] 31.0 /2014 [place] HEMATOLOGY MCV 83.8 fL 80.0 - 10/29 [place] 98.0 /2014 [place] HEMATOLOGY Hct 30.5 % 36.0 - 10/29 [place] 48.0 /2014 [place] HEMATOLOGY RBC 3.63 M/CMM 4.20 - 10/29 [place] 5.40 /2014 [place] HEMATOLOGY Hgb 10.2 g/dL 12.0 - 10/29 [place] 16.0 /2014 [place] HEMATOLOGY WBC 11.2 K/CMM 3.7 - 10.4 10/29 [place] HEMATOLOGY Basophils # 0.2 K/CMM 0.0 - 0.2 10/29 [place] HEMATOLOGY Lymphocytes 4.1 K/CMM 1.0 - 5.5 10/29 [place] # /2014 [place] HEMATOLOGY Segs-Bands # 5.9 K/CMM 1.5 - 8.1 10/29 [place] HEMATOLOGY Eosinophils 0.2 K/CMM 0.0 - 0.5 10/29 [place] # /2014 [place] HEMATOLOGY Monocytes # 0.8 K/CMM 0.0 - 0.8 10/29 [facility] HEMATOLOGY Segs 52.5 % 45.0 - 10/29 [place] 75.0 /2014 [place] HEMATOLOGY Eosinophils 1.9 % 0.0 - 4.0 10/29 [facility] HEMATOLOGY Monocytes 7.4 % 2.0 - 12.0 10/29 [place] HEMATOLOGY Lymphocytes 36.6 % 20.0 - 10/29 [place] 40.0 /2014 [place] HEMATOLOGY Basophils 1.6 % 0.0 - 1.0 10/29 [place] URINE AND UA Turbidity Clear Clear 10/29 [place] [facility] (10/28/14 8:11 PM) URINE AND UA Spec Grav 1.015 <=1.030 10/29 [place] [facility] URINE AND UA pH 7.5 5.0 - 8.0 10/29 [place] [facility] URINE AND UA Color Yellow Yellow 10/29 [place] STOOL *NA* (10/28/14 8:11 PM) URINE AND UA Leuk Est Negative Negative 10/29 [place] ST[facility] (10/28/14 8:11 PM) URINE AND UA Glucose Negative Negative 10/29 [place] [facility] mg/dL mg/dL /2014 [facility] URINE AND UA Protein Negative Negative 10/29 [place] [facility] mg/dL mg/dL [facility] URINE AND UA Ketones Negative Negative 10/29 [place] [facility] mg/dL mg/dL URINE AND UA Blood Negative Negative 10/29 [place] [facility] (10/28/14 8:11 PM) URINE AND UA 0.2 EU/dL 0.1 - 1.0 10/29 [place] [facility] Urobilinogen /2014 [facility] URINE AND UA Bili Negative Negative 10/29 [place] [facility] [place] *NA* (10/28/14 8:11 PM) URINE AND UA Nitrite Negative Negative 10/29 [place] [facility] (10/28/14 8:11 PM) URINE AND UA Bacteria Occasional None Seen 10/29 [place] [facility] /HPF /HPF /2014 [place] URINE AND UA WBC 0-2 /HPF None Seen 10/29 [place] [facility] /HPF /2014 [facility] URINE AND UA RBC None Seen 0 - 2 10/29 [place] [facility] [place] (10/28/14 8:11 PM) URINE AND UA Sq Epi Few /LPF Few /LPF 10/29 [place] [facility] CARDIAC CK MB Index null 0.0 - 2.5 10/29 [facility] CARDIAC Troponin-I null 0.00 - 10/29 [place] ENZYMES 0.40 /2014 [facility] CARDIAC Total CK 116 unit/L 12 - 191 10/29 [facility] CARDIAC CK MB null 0.5 - 3.6 10/29 [place] ENZYMES [facility] CHEM PANEL eGFR 97 10/29 2Result Comment: The eGFR is calculated using the CKD-EPI formula. In most young, healthy individuals the eGFR will be >90 mL/ min/1.73m2. The eGFR declines with age. An eGFR of 60-89 may be normal in mL/min/1. some populations, particularly the elderly, for whom the CKD-EPI formula has not been extensively validated. Use of the eGFR is not recommended in the following populations: [place] 3m2 Individuals with unstable creatinine concentrations, including patients and those with serious co-morbid conditions. Patients with extremes in muscle mass or diet. The data above are obtained from the National Kidney Disease Education Program (NKDEP) which additionally recommends that when the eGFR is used in patients with extremes of body mass index for purposes of drug dosing, the eGFR should be multiplied by the estimated BMI. CHEM PANEL B/C Ratio 9 6 - 25 10/29 [place] CHEM PANEL Globulin 4.0 g/dL 2.0 - 4.0 10/29 [place] CHEM PANEL AGAP 9.9 meq/L 10.0 - 10/29 [place] 20.0 /2014 [place] CHEM PANEL A/G Ratio 0.7 0.7 - 1.6 10/29 [place] CHEM PANEL Calcium Lvl 8.1 mg/dL 8.5 - 10.5 10/29 [place] CHEM PANEL CO2 22 meq/L 24 - 32 10/29 [place] CHEM PANEL Chloride Lvl 112 meq/L 95 - 109 10/29 [place] CHEM PANEL BUN 7 mg/dL 7 - 22 10/29 [place] CHEM PANEL Sodium Lvl 140 meq/L 135 - 145 10/29 [facility] [place] CHEM PANEL Potassium 3.9 meq/L 3.5 - 5.1 10/29 [facility] [place] [facility] [place] CHEM PANEL Creatinine 0.8 mg/dL 0.5 - 1.4 10/29 [facility] [place] [facility] [place] CHEM PANEL Glucose Lvl 89 mg/dL 70 - 99 10/29 4Interpretive Data: Adult reference range values reflect the clinical guidelines of the [employer]. [place] CHEM PANEL Bili Total null 0.2 - 1.3 10/29 [facility] [place] CHEM PANEL Total 6.8 g/dL 6.4 - 8.4 10/29 [place] CHEM PANEL Albumin Lvl 2.8 g/dL 3.5 - 5.0 10/29 [place] CHEM PANEL ALT 20 unit/L 0 - 65 10/29 [place] CHEM PANEL Alk Phos 183 unit/L 39 - 136 10/29 [place] CHEM PANEL AST 14 unit/L 0 - 37 10/29 [place] CHEM PANEL Lipase Lvl 260 unit/L 73 - 393 10/29 [place] CHEM PANEL Amylase Lvl 83 unit/L 25 - 115 10/29 [place] HEMATOLOGY Lymphocytes 31.5 % 20.0 - 10/29 [facility] [place] 40.0 /2014 [place] HEMATOLOGY Segs 60.7 % 45.0 - 10/29 [facility] [place] 75.0 /2015 [place] HEMATOLOGY Basophils # 0.1 K/CMM 0.0 - 0.2 10/29 [place] HEMATOLOGY Eosinophils 0.2 K/CMM 0.0 - 0.5 10/29 [facility] [place] # /2014 [place] HEMATOLOGY Monocytes # 0.8 K/CMM 0.0 - 0.8 10/29 [place] HEMATOLOGY Lymphocytes 4.3 K/CMM 1.0 - 5.5 10/29 [facility] [place] # /2014 [place] HEMATOLOGY Basophils 0.4 % 0.0 - 1.0 10/29 [place] HEMATOLOGY Segs-Bands # 8.3 K/CMM 1.5 - 8.1 10/29 [place] HEMATOLOGY Monocytes 6.2 % 2.0 - 12.0 10/29 [place] HEMATOLOGY Eosinophils 1.2 % 0.0 - 4.0 10/29 [facility] [place] /2014 [facility] HEMATOLOGY Platelet 289 K/CMM 133 - 450 10/29 [place] /2014 [facility] HEMATOLOGY RDW 14.7 % 11.5 - 10/29 [place] 14.5 /2014 [facility] HEMATOLOGY Hct 31.7 % 36.0 - 10/29 [place] 48.0 /2014 [facility] HEMATOLOGY MCV 84.6 fL 80.0 - 10/29 [place] 98.0 /2014 [facility] HEMATOLOGY RBC 3.74 M/CMM 4.20 - 10/29 [place] 5.40 [facility] HEMATOLOGY WBC 13.7 K/CMM 3.7 - 10.4 10/29 Sugar [facility] HEMATOLOGY Hgb 10.0 g/dL 12.0 - 10/29 [place] 16.0 /2014 [facility] HEMATOLOGY MCH 26.8 pg 27.0 - 10/29 [place] 31.0 [facility] HEMATOLOGY MCHC 31.7 g/dL 32.0 - 10/29 [place] 36.0 /2014 [facility] HEMATOLOGY MPV 8.1 fL 7.4 - 10.4 10/29 Sugar [facility] ED ED Clinical history: Abdominal pain, acute. 10/28 - [place] Abdomen/Pe Abdomen/Pelv /2014 [facility] lvis IV is IV Sex: F. contrast contrast only CT only CT : 1960. Read by: Pierre Tang MD Dictated Date/time: 10/28/14 21:08 Electronically Signed by: Pierre Tang MD 10/28/14 21:11 FINAL REPORT Technique: Axial scans through the abdomen and pelvis with intravenous contrast using 100 cc of omnipaque 300 including multiplanar computer reformations. Total Dose (DLP): 1340 mGy-cm. Findings: Fatty liver. Gallbladder not visualized. No biliary dilatation. Normal pancreas. Small spleen measures 6.5 cm otherwise normal enhancement pattern. No adrenal mass. Symmetric kidney function and excreti on without obstruction. Normal distal ureters and bladder. Uterus not seen , surgically absent. No adnexal mass. No free fluid abdomen or pelvis. No intestinal dilatation or obstruction. Appendix not wel l profiled. Major vasculature unremarkable. Minimal atelectasis or scar at the lung bases. No acute skeletal abnormality. Impression: 1. No acute CT findings.. HEMATOLOGY RBC 3.69 M/CMM 4.20 - 06/21 [facility]. [place] HEMATOLOGY WBC 12.8 K/CMM 3.7 - 10.4 09 /2013 [facility] HEMATOLOGY MCH 28.4 pg 27.0 - 06/21 MH 31.0 /2013 [facility] HEMATOLOGY MCV 87.7 fL 80.0 - 06/21 98.0 /2013 [facility] HEMATOLOGY Hgb 10.5 g/dL 12.0 - 06/21 16.0 /2013 [facility] HEMATOLOGY Hct 32.4 % 36.0 - 06/21 48.0 /2013 [facility] HEMATOLOGY MPV 7.7 fL 7.4 - 10.4 06/21 [facility] HEMATOLOGY Platelet 342 K/CMM 133 - 450 06/21 [facility] HEMATOLOGY RDW 14.3 % 11.5 - 06/21 14. [facility] HEMATOLOGY MCHC 32.4 g/dL 32.0 - 06/21 36.0 [facility] HEMATOLOGY Plt Morph Normal 06/21 [facility] (06/21/14 5:30 AM) HEMATOLOGY RBC Morph Normal 06/21 [facility] (06/21/14 5:30 AM) HEMATOLOGY Lymphocytes 36.9 % 20.0 - 06/21 40.0 /2013 [facility] HEMATOLOGY Segs 50.8 % 45.0 - 06/21 75.0 /2013 [facility] HEMATOLOGY Eosinophils 1.7 % 0.0 - 4.0 06/21 [facility] HEMATOLOGY Monocytes 10.1 % 2.0 - 12.0 06/21 [facility] HEMATOLOGY Basophils 0.5 % 0.0 - 1.0 06/21 [facility] HEMATOLOGY Segs-Bands # 6.5 K/CMM 1.5 - 8.1 06/21 [facility] HEMATOLOGY Lymphocytes 4.7 K/CMM 1.0 - 5.5 06/21 # /2013 [facility] HEMATOLOGY Monocytes # 1.3 K/CMM 0.0 - 0.8 06/21 [facility] HEMATOLOGY Eosinophils 0.2 K/CMM 0.0 - 0.5 06/21 [facility] HEMATOLOGY Basophils # 0.1 K/CMM 0.0 - 0.2 06/21 [facility] URINE AND Occult Bld Negative Negative 06/[address] [facility] (06/19/14 8:00 PM) CHEM PANEL eGFR 84 06/19 2Result Comment: The eGFR is calculated using the CKD-EPI formula. In most young, healthy individuals the eGFR will be >90 mL/ min/1.73m2. The eGFR declines with age. An eGFR of 60-89 may be normal in mL/min/1.7 /2013 some populations, particularly the elderly, for whom the CKD-EPI formula has not been extensively validated. Use of the eGFR is not recommended in the following populations: [facility] 3m2 Individuals with unstable creatinine concentrations, including patients and those with serious co-morbid conditions. Patients with extremes in muscle mass or diet. The data above are obtained from the National Kidney Disease Education Program (NKDEP) which additionally recommends that when the eGFR is used in patients with extremes of body mass index for purposes of drug dosing, the eGFR should be multiplied by the estimated BMI. CHEM PANEL BUN 8 mg/dL 7 - 22 06/19 [facility] CHEM PANEL CO2 25 meq/L 24 - 32 06/19 [facility] CHEM PANEL Creatinine 0.9 mg/dL 0.5 - 1.4 06/19 Lvl [facility] CHEM PANEL Sodium Lvl 136 meq/L 135 - 145 06/19 [facility] CHEM PANEL Glucose Lvl 85 mg/dL 70 - 99 06/19 5Interpretive Data: Adult reference range values reflect the clinical guidelines of the [employer]. [facility] CHEM PANEL Potassium 4.7 meq/L 3.5 - 5.1 06/19 1Result MH Lvl Comment: [facility] Specimen Slightly Hemolyzed. CHEM PANEL Chloride Lvl 107 meq/L 95 - 109 06/19 [facility] CHEM PANEL Calcium Lvl 8.5 mg/dL 8.5 - 10.5 06/19 [facility] CHEM PANEL AGAP 8.7 meq/L 10.0 - 06/19 MH 20.0 /2013 [facility] HEMATOLOGY Segs-Bands # 5.1 K/CMM 1.5 - 8.1 06/19 [facility] HEMATOLOGY Basophils 0.4 % 0.0 - 1.0 06/19 [facility] HEMATOLOGY Lymphocytes 3.7 K/CMM 1.0 - 5.5 06/19 MH # /2014 [facility] HEMATOLOGY Eosinophils 0.2 K/CMM 0.0 - 0.5 06/19 MH # /2013 [facility] HEMATOLOGY Monocytes # 1.2 K/CMM 0.0 - 0.8 06/19 [facility] HEMATOLOGY Eosinophils 2.1 % 0.0 - 4.0 06/19 [facility] HEMATOLOGY Segs 49.7 % 45.0 - 06/19 MH 75.0 [facility] Monocytes 11.5 % 2.0 - 12.0 06/19 [facility] Lymphocytes 36.3 % 20.0 - 06/19 MH 40.0 /2013 [facility] Platelet 364 K/CMM 133 - 450 06/19 [facility] MCH 29.2 pg 27.0 - 06/19 MH 31.0 [facility] MPV 7.5 fL 7.4 - 10.4 06/19 [facility] RDW 14.0 % 11.5 - 06/19 MH 14. [facility] Hgb 11.4 g/dL 12.0 - 06/19 MH 16.0 [facility] RBC 3.92 M/CMM 4.20 - 06/19 MH 5.40 /2013 [facility] Hct 33.9 % 36.0 - 06/19 MH 48.0 [facility] MCV 86.4 fL 80.0 - 06/19 MH 98.0 [facility] WBC 10.3 K/CMM 3.7 - 10.4 06/19 [facility] MCHC 33.8 g/dL 32.0 - 06/19 MH 36.0 [facility] CHEM PANEL eGFR 84 06/18 3Result Comment: The eGFR is calculated using the CKD-EPI formula. In most young, healthy individuals the eGFR will be >90 mL/ min/1.73m2. The eGFR declines with age. An eGFR of 60-89 may be normal in MH mL/min/1.7 /2013 some populations, particularly the elderly, for whom the CKD-EPI formula has not been extensively validated. Use of the eGFR is not recommended in the following populations: [facility] 3m2 Individuals with unstable creatinine concentrations, including patients and those with serious co-morbid conditions. Patients with extremes in muscle mass or diet. The data above are obtained from the National Kidney Disease Education Program (NKDEP) which additionally recommends that when the eGFR is used in patients with extremes of body mass index for purposes of drug dosing, the eGFR should be multiplied by the estimated BMI. CHEM PANEL Glucose Lvl 79 mg/dL 70 - 99 06/18 6Interpretive Data: Adult reference range values reflect the clinical guidelines of the [employer]. [facility] CHEM PANEL CO2 27 meq/L 24 - 32 06/18 [facility] CHEM PANEL Calcium Lvl 8.5 mg/dL 8.5 - 10.5 06/18 [facility] CHEM PANEL Chloride Lvl 105 meq/L 95 - 109 06/18 [facility] CHEM PANEL Sodium Lvl 138 meq/L 135 - 145 06/18 [facility] CHEM PANEL Potassium 3.7 meq/L 3.5 - 5.1 06/18 [facility] CHEM PANEL Creatinine 0.9 mg/dL 0.5 - 1.4 06/18 [facility] CHEM PANEL BUN 9 mg/dL 7 - 22 06/18 [facility] CHEM PANEL AGAP 9.7 meq/L 10.0 - 06/18 20. [facility] HEMATOLOGY RDW 14.4 % 11.5 - 06/18 MH 14. [facility] MCH 28.2 pg 27.0 - 06/18 MH 31.0 [facility] HEMATOLOGY Platelet 339 K/CMM 133 - 450 06/18 [facility] HEMATOLOGY MPV 7.6 fL 7.4 - 10.4 06/18 [facility] HEMATOLOGY Hgb 10.7 g/dL 12.0 - 06/18 MH 16.0 [facility] HEMATOLOGY Hct 32.8 % 36.0 - 06/18 MH 48.0 [facility] MCHC 32.5 g/dL 32.0 - 06/18 MH 36.0 [facility] HEMATOLOGY MCV 87.0 fL 80.0 - 06/18 MH 98.0 [facility] HEMATOLOGY RBC 3.78 M/CMM 4.20 - 06/18 MH 5.40 [facility] HEMATOLOGY WBC 12.9 K/CMM 3.7 - 10.4 06/18 [facility] HEMATOLOGY Lymphocytes 30.5 % 20.0 - 06/18 MH 40.0 [facility] HEMATOLOGY Monocytes 8.6 % 2.0 - 12.0 06/18 [facility] HEMATOLOGY Eosinophils 1.7 % 0.0 - 4.0 06/18 [facility] HEMATOLOGY Segs-Bands # 7.5 K/CMM 1.5 - 8.1 06/18 [facility] HEMATOLOGY Lymphocytes 3.9 K/CMM 1.0 - 5.5 06/18 MH # /2013 [facility] HEMATOLOGY Monocytes # 1.1 K/CMM 0.0 - 0.8 06/18 [facility] HEMATOLOGY Eosinophils 0.2 K/CMM 0.0 - 0.5 06/18 # /2013 [facility] HEMATOLOGY Basophils # 0.1 K/CMM 0.0 - 0.2 06/18 [facility] HEMATOLOGY RBC Morph Normal 06/18 [facility] (06/18/14 12:46 PM) HEMATOLOGY Segs 58.5 % 45.0 - 06/18 MH 75.0 /2013 [facility] HEMATOLOGY Plt Morph Normal 06/18 [facility] (06/18/14 12:46 PM) HEMATOLOGY Basophils 0.7 % 0.0 - 1.0 06/18 [facility] CHEM PANEL eGFR 84 06/18 4Result Comment: The eGFR is calculated using the CKD-EPI formula. In most young, healthy individuals the eGFR will be >90 mL/ min/1.73m2. The eGFR declines with age. An eGFR of 60-89 may be normal in mL/min/1. some populations, particularly the elderly, for whom the CKD-EPI formula has not been extensively validated. Use of the eGFR is not recommended in the following populations: [facility] 3m2 Individuals with unstable creatinine concentrations, including patients and those with serious co-morbid conditions. Patients with extremes in muscle mass or diet. The data above are obtained from the National Kidney Disease Education Program (NKDEP) which additionally recommends that when the eGFR is used in patients with extremes of body mass index for purposes of drug dosing, the eGFR should be multiplied by the estimated BMI. CHEM PANEL A/G Ratio 0.9 0.7 - 1.6 06/18 [facility] CHEM PANEL Globulin 3.4 g/dL 2.0 - 4.0 06/18 [facility] CHEM PANEL B/C Ratio 10 6 - 25 06/18 [facility] CHEM PANEL Alk Phos 119 unit/L 39 - 136 06/18 [facility] CHEM PANEL AGAP 11.8 meq/L 10.0 - 06/18 20.0 [facility] CHEM PANEL Bili Total 0.3 mg/dL 0.2 - 1.3 06/18 [facility] CHEM PANEL AST 13 unit/L 0 - 37 06/18 [facility] CHEM PANEL Albumin Lvl 2.9 g/dL 3.5 - 5.0 06/18 [facility] CHEM PANEL ALT 22 unit/L 0 - 65 06/18 [facility] CHEM PANEL Calcium Lvl 8.5 mg/dL 8.5 - 10.5 06/18 [facility] CHEM PANEL Potassium 3.8 meq/L 3.5 - 5.1 06/18 [facility] CHEM PANEL Chloride Lvl 103 meq/L 95 - 109 06/18 [facility] CHEM PANEL Creatinine 0.9 mg/dL 0.5 - 1.4 06/18 [facility] CHEM PANEL CO2 27 meq/L 24 - 32 06/18 [facility] CHEM PANEL Total 6.3 g/dL 6.4 - 8.4 06/18 [facility] CHEM PANEL Sodium Lvl 138 meq/L 135 - 145 06/18 [facility] CHEM PANEL Glucose Lvl 70 mg/dL 70 - 99 06/18 7Interpretive Data: Adult reference range values reflect the clinical guidelines of the [employer]. [facility] CHEM PANEL BUN 9 mg/dL 7 - 22 06/18 [facility] Abdomen/Pe Abdomen/Pelv NAME: MARNIE KATHLEEN 06/17 - [facility] CTA is /2013 - [facility] : 1960 SEX: F Ordering Physician: Nigel Billingsley Read by: Claude Gutierrez MD Dictated Date/time: 06/18/14 08:07 Electronically Signed by: Claude Gutierrez MD 06/18/14 08:27 FINAL REPORT CTA Abdomen/Pelvis with contrast : Jun 17, 2014 08:43:00 PM. CLINICAL INDICATION: Abdominal pain,acute / DLP 1497.30 mGy. Comparison Examination: CT abdomen and pelvis dated 06/16/2014. FINDINGS: Axial images were obtained through the abdomen and pelvis after intravenous administration of contrast for CT angiography. 2-D and 3-D reconstructions were submitted for interpretation. No abdominal aortic aneurysm or abdominal aortic dissection. There is abdominal aortic calcification and left common iliac artery calcification. The common iliac arteries and external iliac arteries are otherwise unremarkable bilaterally. There is no stenosis to the celiac axis or SMA. Single renal arteries supply both kidneys without evidence for renal artery stenosis. The JESSICA is unremarkable. Mild atelectasis seen in the lower lobes bilaterally. The gallbladder is not identified. The patient is status post hysterectomy. Views of the abdomen and pelvis are otherwise unremarkable. CONCLUSIONS: 1. Abdominal aortic calcification and left common iliac artery calcification. 2. Gallbladder not identified. Status post hysterectomy. 3. Otherwise unremarkable CTA of the abdomen and pelvis with contrast. SL: 14 CHEM PANEL Procalcitoni <0.05 0.00 - 06/17 n Lvl ng/mL 0.10 [facility] CHEM PANEL Lactic Acid 2.4 mMol/L 0.5 - 2.2 06/17 Lvl /2013 [facility] CARDIAC Total CK 41 unit/L 12 - 191 06/17 ENZYMES /2013 [facility] CARDIAC Troponin-I null 0.00 - 06/17 ENZYMES 0.40 /2013 [facility] CHEM PANEL B/C Ratio 11 6 - 25 06/17 [facility] CHEM PANEL Globulin 3.9 g/dL 2.0 - 4.0 06/17 [facility] CHEM PANEL A/G Ratio 0.8 0.7 - 1.6 06/17 [facility] CHEM PANEL Alk Phos 131 unit/L 39 - 136 06/17 [facility] CHEM PANEL Bili Total 0.2 mg/dL 0.2 - 1.3 06/17 [facility] CHEM PANEL Total 7.1 g/dL 6.4 - 8.4 06/17 Protein [facility] CHEM PANEL Albumin Lvl 3.2 g/dL 3.5 - 5.0 06/17 [facility] CHEM PANEL AST 15 unit/L 0 - 37 06/17 [facility] CHEM PANEL ALT 29 unit/L 0 - 65 06/17 [facility] HEMATOLOGY Plt Morph Normal 06/17 [facility] (06/17/14 8:55 AM) HEMATOLOGY RBC Morph Normal 06/17 [facility] (06/17/14 8:55 AM) HEMATOLOGY Basophils # 0.1 K/CMM 0.0 - 0.2 06/17 [facility] IMMUNOLOGY Hep Bs Ag Negative Negative 06/17 [facility] *NA* (06/17/14 8:55 AM) IMMUNOLOGY Hep B Core Negative Negative 06/17 IgM [facility] *NA* (06/17/14 8:55 AM) IMMUNOLOGY Hep A IgM Negative Negative 06/17 [facility] *NA* (06/17/14 8:55 AM) IMMUNOLOGY Hep C Ab Negative Negative 06/17 [facility] *NA* (06/17/14 8:55 AM) IMMUNOLOGY HIV 1/2 Ab Negative Negative 06/17 [facility] *NA* (06/17/14 8:55 AM) CARDIAC Total CK 39 unit/L 12 - 191 06/17 ENZYMES /2013 [facility] CARDIAC Troponin-I null 0.00 - 06/17 ENZYMES 0.40 /2013 [facility] Chest Chest 1view Examination: Chest x-ray, single view 06/16 - - [facility] History: Shortness of Breath Read by: Pierre Delgado MD Dictated Date/time: 06/16/14 19:52 Electronically Signed by: Pierre Delgado MD 06/16/14 19:52 FINAL REPORT Comparison: 04/02/2013 Findings: The lungs are clear and without focal consolidation. The cardiomediastinal silhouette is within normal limits. No pleural effusion or pneumothorax is seen. The osseous structures are without focal abnormality. IMPRESSION: No acute cardiopulmonary disease. SL: 12 CHEM PANEL Lipase Lvl 111 unit/L 73 - 393 06/16 [facility] CHEM PANEL Bili Total 0.2 mg/dL 0.2 - 1.3 06/16 [facility] CHEM PANEL Albumin Lvl 3.3 g/dL 3.5 - 5.0 06/16 [facility] CHEM PANEL AST 29 unit/L 0 - 37 06/16 [facility] CHEM PANEL Total 7.1 g/dL 6.4 - 8.4 06/16 [facility] CHEM PANEL ALT 33 unit/L 0 - 65 06/16 [facility] CHEM PANEL Alk Phos 136 unit/L 39 - 136 06/16 [facility] CHEM PANEL Globulin 3.8 g/dL 2.0 - 4.0 06/16 [facility] CHEM PANEL A/G Ratio 0.9 0.7 - 1.6 06/16 [facility] CHEM PANEL B/C Ratio 12 6 - 25 06/16 [facility] HEMATOLOGY PTT 26.4 s 22.9 - 06/16 9Interpretive 35.8 Data: Heparin [facility] Therapeutic Range: 57 - 92 Seconds HEMATOLOGY PT 13.2 s 12.0 - 06/16 14.7 [facility] HEMATOLOGY INR 1.00 0.85 - 06/16 8Interpretive Data: RECOMMENDED RANGES FOR PROTIME INR: . 2.0-3.0 for most medical and surgical thromboembolic states. [facility] 2.5-3.5 for artificial heart valves and recurrent embolism. INR SHOULD BE USED ONLY FOR PATIENTS ON STABLE ANTICOAGULANT THERAPY. URINE AND UA Bacteria None Seen None Seen 06/16 STOOL [facility] (06/16/14 2:14 PM) URINE AND UA Sq Epi None Seen Few 06/16 STOOL [facility] (06/16/14 2:14 PM) URINE AND UA Bili Negative Negative 06/16 [facility] *NA* (06/16/14 2:14 PM) URINE AND UA Blood Negative Negative 06/16 STOOL [facility] (06/16/14 2:14 PM) URINE AND UA 0.2 EU/dL 0.1 - 1.0 06/16 [facility] Urobilinogen [facility] URINE AND UA Leuk Est Negative Negative 06/16 STOOL [facility] (06/16/14 2:14 PM) URINE AND UA Nitrite Negative Negative 06/16 STOOL [facility] (06/16/14 2:14 PM) URINE AND UA Color Yellow Yellow 06/16 [facility] *NA* (06/16/14 2:14 PM) URINE AND UA Turbidity Clear Clear 06/16 [facility] (06/16/14 2:14 PM) URINE AND UA pH 7.5 5.0 - 8.0 06/16 [facility] URINE AND UA Spec Grav 1.010 <=1.030 06/16 [facility] URINE AND UA Protein Negative Negative 06/16 [facility] mg/dL mg/dL [facility] URINE AND UA Ketones Negative Negative 06/16 [facility] mg/dL mg/dL [facility] URINE AND UA Glucose Negative Negative 06/16 [facility] mg/dL mg/dL [facility] Abdomen/Pe Abdomen/Pelv EXAMINATION: CT of the abdomen and pelvis with contrast 06/16 - lvis w IV is w IV /2013 - [facility] contrast contrast CT CT HISTORY: Acute abdominal pain Read by: Pierre Delgado MD Dictated Date/time: 06/16/14 18:51 Electronically Signed by: Pierre Delgado MD 06/16/14 18:53 FINAL REPORT COMPARISON: CT of abdomen and pelvis from 06/06/2014. DLP: 1741.85 TECHNIQUE: Multiple transaxial images through the abdomen and pelvis were acquired following administration of intravenous contrast material. Oral contrast was administered. Multiplanar reformatted images were performed. FINDINGS: The lung bases are clear bilaterally. The patient is status post cholecystectomy. There is no intrahepatic or extra hepatic biliary duct dilatation. The liver, pancreas, spleen, adrenal glands, and kidneys are unremarkable. The bladder is m ildly distended. The patient is status post hysterectomy. The visualized hollow viscera are unremarkable. The appendix is not visualized. No intraperitoneal free air, free fluid, or pathologic adenopath y is seen. Arterial calcifications are noted. There is no acute osseous abnormality. IMPRESSION: No acute intra-abdominal/pelvic abnormality. SL: 12 Abdomen AP Abdomen AP KUB: 06/16 - view view /2013 - [facility] COMPARISON: KUB dated 12/02/[address] examination of the chest dated . Read by: Carlo García MD Dictated Date/time: 06/16/14 14:36 Electronically Signed by: Carlo García MD 06/16/14 14:37 FINAL REPORT FINDINGS: The bowel is not dilated. There is no evidence of free air within the abdomen. There are no obvious abdominal or pelvic masses. A calcified phleboliths is present within the pelvis. IMPRESSION: Nonspecific abdominal radiograph with no obvious acute abnormalities. SL: 14 URINE AND UA Bacteria Occasional None Seen 06/06 [place] STOOL /HPF /HPF /2013 [place] URINE AND UA Sq Epi Occasional Few /LPF 06/06 [place] STOOL /LPF /2013 [place] URINE AND UA WBC 0-2 /HPF None Seen 06/06 [place] ST[place] /HPF /2013 [place] URINE AND Micro? Performed 06/06 [place] [facility] [place] (06/06/14 4:40 PM) URINE AND UA Mucus None Seen None Seen 06/06 [place] [facility] [place] (06/06/14 4:40 PM) URINE AND UA RBC 0-2 /HPF 0 - 2 06/06 [place] URINE AND UA Leuk Est Negative Negative 06/06 [place] (06/06/14 4:40 PM) URINE AND UA Nitrite Negative Negative 06/06 [place] [facility] [place] (06/06/14 4:40 PM) URINE AND UA Blood Negative Negative 06/06 [place] STOOL [facility] (06/06/14 4:40 PM) URINE AND UA 0.2 EU/dL 0.1 - 1.0 06/06 [place] STOOL Urobilinogen /2013 [facility] URINE AND UA Bili Negative Negative 06/06 [place] [facility] [place] *NA* (06/06/14 4:40 PM) URINE AND UA Ketones Negative Negative 06/06 [place] [facility] mg/dL mg/dL [facility] URINE AND UA Glucose Negative Negative 06/06 [place] [facility] mg/dL mg/dL [place] URINE AND UA Color Yellow Yellow 06/06 [place] [facility] [place] *NA* (06/06/14 4:40 PM) URINE AND UA pH 8.0 5.0 - 8.0 06/06 [place] [facility] [place] URINE AND UA Protein Negative Negative 06/06 [place] [facility] mg/dL mg/dL [place] URINE AND UA Turbidity Clear Clear 06/06 [place] STOOL [facility] (06/06/14 4:40 PM) URINE AND UA Spec Grav 1.010 <=1.030 06/06 [place] [facility] CHEM PANEL Amylase Lvl 82 unit/L 25 - 115 06/06 [facility] CHEM PANEL Lipase Lvl 187 unit/L 73 - 393 06/06 [place] ELECTROLYT AGAP 9.7 meq/L 10.0 - 06/06 [place] ES 20.0 [place] ELECTROLYT B/C Ratio 12 6 - 25 06/06 [place] ELECTROLYT A/G Ratio 0.7 0.7 - 1.6 06/06 [place] ELECTROLYT Globulin 3.9 g/dL 2.0 - 4.0 06/06 [place] ELECTROLYT eGFR 84 06/06 1Result Comment: The eGFR is calculated using the CKD-EPI formula. In most young, healthy individuals the eGFR will be >90 mL/ min/1.73m2. The eGFR declines with age. An eGFR of 60-89 may be normal in mL/min/1.7 some populations, particularly the elderly, for whom the CKD-EPI formula has not been extensively validated. Use of the eGFR is not recommended in the following populations: [place] 3m2 Individuals with unstable creatinine concentrations, including patients and those with serious co-morbid conditions. Patients with extremes in muscle mass or diet. The data above are obtained from the National Kidney Disease Education Program (NKDEP) which additionally recommends that when the eGFR is used in patients with extremes of body mass index for purposes of drug dosing, the eGFR should be multiplied by the estimated BMI. ELECTROLYT CO2 28 meq/L 24 - 32 06/06 [place] ELECTROLYT Albumin Lvl 2.9 g/dL 3.5 - 5.0 06/06 [place] ELECTROLYT Total 6.8 g/dL 6.4 - 8.4 06/06 [place] ELECTROLYT ALT 20 unit/L 0 - 65 06/06 [place] ELECTROLYT AST 12 unit/L 0 - 37 06/06 [place] ELECTROLYT Alk Phos 141 unit/L 39 - 136 06/06 [place] ELECTROLYT Bili Total 0.2 mg/dL 0.2 - 1.3 06/06 [place] ELECTROLYT Calcium Lvl 8.5 mg/dL 8.5 - 10.5 06/06 [place] ELECTROLYT Potassium 3.7 meq/L 3.5 - 5.1 06/06 [place] ES Lvl [place] ELECTROLYT Sodium Lvl 141 meq/L 135 - 145 06/06 [place] ELECTROLYT Chloride Lvl 107 meq/L 95 - 109 06/06 [place] ELECTROLYT BUN 11 mg/dL 7 - 22 06/06 [place] ELECTROLYT Creatinine 0.9 mg/dL 0.5 - 1.4 06/06 [place] ES Lvl [place] ELECTROLYT Glucose Lvl 98 mg/dL 70 - 99 06/06 2Interpretive Data: Adult reference range values reflect the clinical guidelines [place] of the [place] [employer]. [place] HEMATOLOGY RDW 14.8 % 11.5 - 06/06 [place] 14. [place] HEMATOLOGY MCHC 33.0 g/dL 32.0 - 06/06 [place] 36.0 [place] HEMATOLOGY MCH 28.4 pg 27.0 - 06/06 [place] 31.0 [place] HEMATOLOGY MCV 86.0 fL 81.0 - 06/06 [place] 99.0 [place] HEMATOLOGY Hct 33.2 % 36.0 - 06/06 [place] 48.0 /2013 [place] HEMATOLOGY MPV 7.2 fL 7.4 - 10.4 06/06 [place] HEMATOLOGY Platelet 377 K/CMM 133 - 450 06/06 [place] HEMATOLOGY Hgb 11.0 g/dL 12.0 - 06/06 [place] 16.0 /2013 [place] HEMATOLOGY RBC 3.86 M/CMM 4.20 - 06/06 [place] 5.40 /2013 [place] HEMATOLOGY WBC 15.2 K/CMM 3.7 - 10.4 06/06 [place] HEMATOLOGY Elliptocyte Slight None Seen 06/06 [place] *ABN* (06/06/14 3:35 PM) HEMATOLOGY Large Plt Slight None Seen 06/06 [place] *ABN* (06/06/14 3:35 PM) HEMATOLOGY Giant Plt Slight None Seen 06/06 [place] *ABN* (06/06/14 3:35 PM) HEMATOLOGY Tear Cell Slight None Seen 06/06 [place] *ABN* (06/06/14 3:35 PM) HEMATOLOGY Anisocyte 1+ None Seen 06/06 [place] *ABN* (06/06/14 3:35 PM) HEMATOLOGY Basophils # 0.2 K/CMM 0.0 - 0.2 06/06 [place] HEMATOLOGY Monocytes # 0.9 K/CMM 0.0 - 0.8 06/06 [place] HEMATOLOGY Lymphocytes 4.6 K/CMM 1.0 - 5.5 06/06 [place] # /2013 [place] HEMATOLOGY Eosinophils 0.1 K/CMM 0.0 - 0.5 06/06 [place] # /2013 [place] HEMATOLOGY Monocytes 6.0 % 2.0 - 12.0 06/06 [place] HEMATOLOGY Lymphocytes 30.1 % 20.0 - 06/06 [place] 40.0 /2013 [place] HEMATOLOGY Segs 61.5 % 45.0 - 06/06 [place] 75.0 /2013 [place] HEMATOLOGY Segs-Bands # 9.3 K/CMM 1.5 - 8.1 06/06 [place] HEMATOLOGY Basophils 1.6 % 0.0 - 1.0 06/06 [place] HEMATOLOGY Eosinophils 0.8 % 0.0 - 4.0 06/06 [place] Abdomen/Pe Abdomen/Pelv Exam: CT Scan of the abdomen and pelvis with contrast 06/06 - [place] lvis w IV is w - [facility] contrast contrast CT CT Reason for Exam: Acute abdominal pain Read by: Joe Johnson MD Dictated Date/time: 06/06/14 17:43 Electronically Signed by: Joe Johnson MD 06/06/14 17:49 FINAL REPORT Comparison Exam: CT scan abdomen and pelvis 12/03/2013 and 12/01/2013 Technique: Multiple axial images were obtained of the abdomen and pelvis. 3.75 mm slices were acquired after injection of 100 cc Omnipaque 300 IV. oral contrast was also given. Reformatted sagittal an d coronal images were obtained for additional diagnostic information. Total exam PTC=848 mGy-cm. Discussion: Visualized portions of the lung bases are unremarkable. The patient is status post cholecystectomy. No biliary duct dilation. Liver is unremarkable. Portal venous system is patent. Pancreas, spleen, and adrenal glands are within normal limits. 3 cm duodenal diverticulum is noted within the third portion of the duodenum. Kidneys are unremarkable. No hydronephrosis or hydroureter. No dilated loops of bowel. The patient is status post appendectomy and hystere ctomy by history. Uterus is unremarkable. No appreciable lymphadenopathy. No ventral or inguinal hernias. No acute bony abnormalities appreciated. No suspicious osteoblastic or osteolytic lesions. No evidence seen for abdominal aortic aneurysm or dissection. Impression: 1. No evidence seen for bowel obstruction. URINALYSIS UA Bacteria None Seen None Seen 03/31 Normal [facility] (03/31/2013 14:40:37) URINALYSIS UA RBC 0-2 /HPF 0 - 2 03/31 Normal [facility] (03/31/2013 14:40:37) URINALYSIS UA Ketones Negative Negative 03/31 [facility] *NA* (03/31/2013 14:40:37) URINALYSIS UA Bili Negative Negative 03/31 [facility] *NA* (03/31/2013 14:40:37) URINALYSIS UA WBC 0-2 /HPF None Seen 03/31 Normal [facility] (03/31/2013 14:40:37) URINALYSIS UA Sq Epi Occasional /LPF Few 03/31 Normal [place] (03/31/2013 14:40:37) URINALYSIS UA Leuk Est Negative Negative 03/31 Normal [place] [facility] (03/31/2013 14:40:37) URINALYSIS UA Nitrite Negative Negative 03/31 Normal [place] [facility] (03/31/2013 14:40:37) URINALYSIS UA 0.2 EU/dL 0.1 - 1.0 03/31 Normal [facility] Urobilinogen [facility] URINALYSIS Micro? Performed 03/31 Normal [place] [facility] (03/31/2013 14:40:37) URINALYSIS UA Blood Negative Negative 03/31 Normal [place] [facility] (03/31/2013 14:40:37) URINALYSIS UA Protein Negative Negative 03/31 Normal [facility] (03/31/2013 14:40:37) URINALYSIS UA Spec Grav <=1.005 <=1.030 03/31 NA [place]
*NA*< [place] br/>(03/31 14:40:37) <sup> </sup> URINALYSIS UA pH 7.0 5.0 - 8.0 03/31 Normal [place] [facility] URINALYSIS UA Glucose Negative Negative 03/31 Normal [facility] (03/31/2013 14:40:37) URINALYSIS UA Turbidity Clear Clear 03/31 Normal [place] [facility] (03/31/2013 14:40:37) URINALYSIS UA Color Yellow Yellow 03/31 NA [place] *NA* (03/31/2013 14:40:37) CHEMISTRY Sodium Lvl 142 meq/L 135 - 145 03/31 Normal [facility] CHEMISTRY Glucose Lvl 121 mg/dL 70 - 99 03/31 [place] 4Interpretive Data: Adult reference range values reflect the clinical guidelines of the [place] [employer]. [place] CHEMISTRY Creatinine 1.0 mg/dL 0.5 - 1.4 03/31 Normal [place] Lvl [facility] CHEMISTRY BUN 6 mg/dL 7 - 22 03/31 LOW [facility] CHEMISTRY eGFR 75 03/31 NA 2Result Comment: The eGFR is calculated using the CKD-EPI formula. In most young, healthy individuals the eGFR will be > 90 mL/min/1.73m2. The eGFR declines with age. An eGFR of 60-89 may be normal in [place] mL/min/1.7 /2013 some populations, particularly the elderly, for whom the CKD-EPI formula has not been extensively validated. Use of the eGFR is not recommended in the following populations: [place] 3m2 Individuals with unstable creatinine concentrations, including patients and those with serious co-morbid conditions. Patients with extremes in muscle mass or diet. The data above are obtained from the National Kidney Disease Education Program (NKDEP) which additionally recommends that when the eGFR is used in patients with extremes of body mass index for purposes of drug dosing, the eGFR should be multiplied by the estimated BMI. CHEMISTRY AGAP 11.3 meq/L 10.0 - 03/31 Normal [place] 20.0 /2012 [place] CHEMISTRY CO2 27 meq/L 24 - 32 03/31 Normal [place] /2012 [place] CHEMISTRY Calcium Lvl 8.0 mg/dL 8.5 - 10.5 03/31 LOW MH [place] /2012 [place] CHEMISTRY Chloride Lvl 107 meq/L 95 - 109 03/31 Normal [place] /2012 [place] CHEMISTRY Potassium 3.3 meq/L 3.5 - 5.1 03/31 LOW MH [place] Lvl /2013 [place] CHEMISTRY Hgb A1C 5.9 % <=5.6 03/31 HI 10Interpretive Data: The reference range is based on the clinical practice guidelines of the [place] [employer] for diabetes screening; [place] levels of 5.7%-6.4% are indicative of pre-diabetes. CHEMISTRY T4 Free 1.11 ng/dL 0.76 - 03/31 Normal [place] 1.46 /2013 [place] CHEMISTRY LDL 53 mg/dL <=99 03/31 Normal 9Interpretive Data: [place] Reference ranges are based on the clinical guidelines of the NHL[employer] National Cholesterol Education Program (ATP III, 2001). CHEMISTRY Chol 135 mg/dL <=199 03/31 Normal 6Interpretive [place] /2012 Data: [place] Reference ranges are based on the clinical guidelines of the [employer] National Cholesterol Education Program (ATP III, 2001). CHEMISTRY Trig 105 mg/dL <=149 03/31 Normal 7Interpretive Data: [place] Reference ranges are based on the clinical guidelines of the NHL[employer] National Cholesterol Education Program (ATP III, 2001). CHEMISTRY HDL 61 mg/dL >=61 03/31 Normal 8Interpretive MH [place] /2012 Data: [place] Reference ranges are based on the clinical guidelines of the NHL[employer] National Cholesterol Education Program (ATP III, 2001). CHEMISTRY CHD Risk 2.21 3.90 - 06/ LOW MH [place] 5.80 /2012 [place] CHEMISTRY TSH 0.352 0.360 - 03/31 LOW MH [place] uIU/mL 3.740 /2012 [place] HEMATOLOGY MCHC 30.1 g/dL 32.0 - 06 LOW MH [place] 36.0 /2012 [place] HEMATOLOGY MPV 8.3 fL 7.4 - 10.4 06/ Normal MH [place] /2012 [place] HEMATOLOGY RDW 15.7 % 11.5 - 06/ HI MH [place] 14.5 /2012 [place] HEMATOLOGY Platelet 299 K/CMM 133 - 450 06/ Normal MH [place] /2012 [place] HEMATOLOGY WBC 11.5 K/CMM 3.7 - 10.4 / HI MH [place] /2012 [place] HEMATOLOGY Hgb 9.1 g/dL 12.0 - 03/31 LOW MH [place] 16.0 /2012 [place] HEMATOLOGY RBC 3.91 M/CMM 4.20 - 03/31 LOW MH [place] 5.40 /2012 [place] HEMATOLOGY MCV 77.2 fL 81.0 - 03/31 LOW MH [place] 99.0 /2012 [place] HEMATOLOGY MCH 23.2 pg 27.0 - 06 LOW MH [place] 31.0 /2012 [place] HEMATOLOGY Hct 30.2 % 36.0 - 06/ LOW MH [place] 48.0 /2012 [place] HEMATOLOGY Basophils 0.6 % 0.0 - 1.0 / Normal MH [place] /2012 [place] HEMATOLOGY Monocytes # 1.1 K/CMM 0.0 - 0.8 / HI MH [place] /2012 [place] HEMATOLOGY Eosinophils 0.2 K/CMM 0.0 - 0.5 / Normal MH [place] # /2012 [place] HEMATOLOGY Segs-Bands # 5.7 K/CMM 1.5 - 8.1 / Normal MH [place] /2012 [place] HEMATOLOGY Lymphocytes 4.3 K/CMM 1.0 - 5.5 / Normal MH [place] # /2012 [place] HEMATOLOGY Eosinophils 2.2 % 0.0 - 4.0 / Normal MH [place] /2012 [place] HEMATOLOGY Lymphocytes 37.7 % 20.0 - 06 Normal MH [place] 40.0 /2012 [place] HEMATOLOGY Monocytes 10.0 % 2.0 - 12.0 /11 Normal MH [place] /2012 [place] HEMATOLOGY Segs 49.5 % 45.0 - 03/31 Normal [place] 75.0 [place] HEMATOLOGY Basophils # 0.1 K/CMM 0.0 - 0.2 03/31 Normal [place] HEMATOLOGY Sed Rate 14 mm/h 0 - 20 03/31 Normal [place] BEDSIDE Gluc POC 123 mg/dL 70 - 99 03/31 HI 1Interpretive [place] GLUCOSE [facility] /2012 Data: [place] TESTING Upper Reportable Limit: 200 mg/dL. BEDSIDE Comment1 Notify 03/31 NA [place] GLUCOSE RN/MD /2012 [place] TESTING CHEMISTRY Total CK 153 unit/L 12 - 191 03/30 Normal [place] CHEMISTRY CK MB null 0.5 - 3.6 03/30 Normal [place] CHEMISTRY Troponin-I null 0.00 - 03/30 Normal [place] 0.40 [place] CHEMISTRY eGFR 75 03/30 NA 3Result Comment: The eGFR is calculated using the CKD-EPI formula. In most young, healthy individuals the eGFR will be > 90 mL/min/1.73m2. The eGFR declines with age. An eGFR of 60-89 may be normal in [place] mL/min/1.7 /2012 some populations, particularly the elderly, for whom the CKD-EPI formula has not been extensively validated. Use of the eGFR is not recommended in the following populations: [place] 3m2 Individuals with unstable creatinine concentrations, including patients and those with serious co-morbid conditions. Patients with extremes in muscle mass or diet. The data above are obtained from the National Kidney Disease Education Program (NKDEP) which additionally recommends that when the eGFR is used in patients with extremes of body mass index for purposes of drug dosing, the eGFR should be multiplied by the estimated BMI. CHEMISTRY B/C Ratio 5 6 - 25 03/30 LOW MH [place] CHEMISTRY AGAP 13.7 meq/L 10.0 - 03/30 Normal [place] 20.0 [place] CHEMISTRY Globulin 3.7 g/dL 2.0 - 4.0 03/30 Normal [place] CHEMISTRY Bili Total 0.2 mg/dL 0.2 - 1.3 03/30 Normal [place] CHEMISTRY AST 17 unit/L 0 - 37 03/30 Normal [place] CHEMISTRY A/G Ratio 0.9 0.7 - 1.6 03/30 Normal [place] CHEMISTRY ALT 16 unit/L 0 - 65 03/30 Normal [place] CHEMISTRY Alk Phos 119 unit/L 39 - 136 03/30 Normal [place] CHEMISTRY Albumin Lvl 3.3 g/dL 3.5 - 5.0 03/30 LOW [place] CHEMISTRY Calcium Lvl 8.2 mg/dL 8.5 - 10.5 03/30 LOW [place] CHEMISTRY Total 7.0 g/dL 6.4 - 8.4 03/30 Normal [place] Protein [place] CHEMISTRY Potassium 3.7 meq/L 3.5 - 5.1 03/30 Normal [place] Lvl [place] CHEMISTRY Chloride Lvl 109 meq/L 95 - 109 03/30 Normal [place] CHEMISTRY CO2 24 meq/L 24 - 32 03/30 Normal [place] CHEMISTRY BUN 5 mg/dL 7 - 22 03/30 LOW [place] CHEMISTRY Sodium Lvl 143 meq/L 135 - 145 03/30 Normal [place] CHEMISTRY Creatinine 1.0 mg/dL 0.5 - 1.4 03/30 Normal [place] Lvl [place] CHEMISTRY Glucose Lvl 83 mg/dL 70 - 99 03/30 Normal 5Interpretive Data: Adult reference range values reflect the clinical guidelines of the [place] [employer]. [facility] CHEMISTRY CK MB Index null 0.0 - 2.5 03/30 Normal [place] [facility] HEMATOLOGY PT 13.5 s 12.0 - 03/30 Normal [place] 14.7 [place] HEMATOLOGY PTT See Note 12, 13 22.9 - 03/30 Normal 13Interpretiv [place] 35.8 /2013 e Data: [facility] (03/30/2013 17:03:00) Heparin Therapeutic Range: 57 - 92 Seconds HEMATOLOGY INR 1.01 0.85 - 03/30 Normal 11Interpretive Data: RECOMMENDED RANGES FOR PROTIME INR: [place] 1.17 2.0-3.0 for most medical and surgical thromboembolic states. [place] 2.5-3.5 for artificial heart valves and recurrent embolism. INR SHOULD BE USED ONLY FOR PATIENTS ON STABLE ANTICOAGULANT THERAPY. HEMATOLOGY RBC 4.04 M/CMM 4.20 - 03/30 LOW [place] 5.40 /2013 [facility] HEMATOLOGY Hgb 9.4 g/dL 12.0 - 03/30 LOW [place] 16.0 /2012 [place] HEMATOLOGY MCV 75.8 fL 81.0 - 03/30 LOW [place] 99.0 /2012 [place] HEMATOLOGY Hct 30.6 % 36.0 - 03/30 LOW [place] 48.0 /2012 [place] HEMATOLOGY WBC 14.5 K/CMM 3.7 - 10.4 03/30 HI [place] /2012 [place] HEMATOLOGY MCHC 30.8 g/dL 32.0 - 03/30 LOW [place] 36.0 /2012 [place] HEMATOLOGY RDW 16.2 % 11.5 - 03/30 HI [place] 14.5 /2012 [place] HEMATOLOGY MPV 8.5 fL 7.4 - 10.4 03/30 Normal [place] /2012 [place] HEMATOLOGY MCH 23.3 pg 27.0 - 03/30 LOW [place] 31.0 /2012 [place] HEMATOLOGY Platelet 314 K/CMM 133 - 450 03/30 Normal [place] HEMATOLOGY Hypochrom Slight None Seen 03/30 Normal [place] (03/30/2013 17:03:00) HEMATOLOGY Large Plt Slight None Seen 03/30 [facility] [place] *ABN* (03/30/2013 17:03:00) HEMATOLOGY Basophils # 0.1 K/CMM 0.0 - 0.2 03/30 Normal [place] HEMATOLOGY Microcyte 1+ None Seen 03/30 [facility] [place] *ABN* (03/30/2013 17:03:00) HEMATOLOGY Segs 54.9 % 45.0 - 03/30 Normal [place] 75.0 /2012 [place] HEMATOLOGY Lymphocytes 36.2 % 20.0 - 03/30 Normal [place] 40.0 /2012 [place] HEMATOLOGY Monocytes 6.9 % 2.0 - 12.0 03/30 Normal [place] /2012 [place] HEMATOLOGY Monocytes # 1.0 K/CMM 0.0 - 0.8 03/30 HI [place] /2012 [place] HEMATOLOGY Eosinophils 0.2 K/CMM 0.0 - 0.5 03/30 Normal [place] # /2012 [place] HEMATOLOGY Lymphocytes 5.2 K/CMM 1.0 - 5.5 03/30 Normal [place] # /2012 [place] HEMATOLOGY Basophils 0.7 % 0.0 - 1.0 03/30 Normal [place] HEMATOLOGY Eosinophils 1.3 % 0.0 - 4.0 03/30 Normal [place] HEMATOLOGY Segs-Bands # 7.9 K/CMM 1.5 - 8.1 03/30 Normal [place] /2012 [place] Brain wo Brain wo CT head 03/30 - [facility] contrast contrast CT /2012 CT Read by: Eduardo Apodaca Dictated Date/time: 03/30/13 18:18 HISTORY: Headaches and dizziness Electronically Signed by: Eduardo Apodaca MD 03/30/13 18:[address] scans of the head obtained from the skull base through the tentorium at 5.0 mm contiguous intervals. Additional 5.0 mm slices obtained through the remainder of the head. Intravenous contrast not administered. Sagittal and coronal reconstructions were performed. Current exam compared to a previous study of 09/10/2012. IMPRESSION: No infratentorial or supratentorial masses noted. No evidence of intracerebral hemorrhage. Ventricles normal in size with no shift to midline indicators. No extra-axial fluid collections noted. The visualized calvarium appears intact. CONCLUSION: Normal CT scan of the head without contrast. No significant change from . Chest Chest 1view Portable chest. 03/30 - [place] 1view HISTORY: Vertigo and headache. Read by: Eduardo Apodaca Dictated Date/time: 03/30/13 17:02 Electronically Signed by: Eduardo Apodaca MD 03/30/13 17:03 FINAL REPORT Upright portable chest on 03/30/2013 at 4:55 p.m. compared to films of shows cardiac silhouette to remain normal in size. No interval development of pneumonia or pulmonary edema. CONCLUSION: 1. No acute cardiopulmonary disease and no significant change from 2011. CHEMISTRY eGFR 67 09/10 NA 1Result Comment: The eGFR is calculated using the CKD-EPI formula. In most young, healthy individuals the eGFR will be > 90 mL/min/1.73m2. The eGFR declines with age. An eGFR of 60-89 may be normal in [place] mL/min/1. /2012 some populations, particularly the elderly, for whom the CKD-EPI formula has not been extensively validated. Use of the eGFR is not recommended in the following populations: [facility] 3m2 Individuals with unstable creatinine concentrations, including patients and those with serious co-morbid conditions. Patients with extremes in muscle mass or diet. The data above are obtained from the National Kidney Disease Education Program (NKDEP) which additionally recommends that when the eGFR is used in patients with extremes of body mass index for purposes of drug dosing, the eGFR should be multiplied by the estimated BMI. CHEMISTRY BUN 8 mg/dL 7 - 22 09/10 Normal MH [facility] CHEMISTRY Glucose Lvl 120 mg/dL 70 - 99 09/10 HI 4Interpretive Data: Adult reference range values reflect the clinical guidelines of the [place] [employer]. [facility] CHEMISTRY AGAP 13.9 meq/L 10.0 - 09/10 Normal MH 20.0 [facility] CHEMISTRY Calcium Lvl 8.7 mg/dL 8.5 - 10.5 09/10 Normal MH [facility] CHEMISTRY Sodium Lvl 138 meq/L 135 - 145 09/10 Normal MH [facility] CHEMISTRY Creatinine 1.1 mg/dL 0.5 - 1.4 09/10 Normal MH Lvl [facility] CHEMISTRY Chloride Lvl 104 meq/L 95 - 109 09/10 Normal [facility] CHEMISTRY Potassium 3.9 meq/L 3.5 - 5.1 09/10 Normal Lvl [facility] CHEMISTRY CO2 24 meq/L 24 - 32 09/10 Normal MH [facility] HEMATOLOGY Hgb 10.2 g/dL 12.0 - 09/10 LOW MH 16.0 [facility] HEMATOLOGY RDW 15.3 % 11. - 09/10 HI MH 14. [facility] HEMATOLOGY MCHC 33.0 g/dL 32.0 - 09/10 Normal MH 36.0 [facility] HEMATOLOGY Hct 31.0 % 36.0 - 09/10 LOW MH 48.0 [facility] HEMATOLOGY RBC 3.87 M/CMM 4.20 - 09/10 LOW MH 5.40 /2011 [facility] HEMATOLOGY MCH 26.4 pg 27.0 - 09/10 LOW MH 31.0 [facility] HEMATOLOGY MCV 80.0 fL 81.0 - 09/10 LOW MH 99.0 [facility] HEMATOLOGY Platelet 335 K/CMM 133 - 450 09/10 Normal MH [facility] HEMATOLOGY MPV 8.1 fL 7.4 - 10.4 09/10 Normal MH [facility] HEMATOLOGY WBC 15.5 K/CMM 3.7 - 10.4 09/10 HI MH /2011 [facility] HEMATOLOGY Segs-Bands # 9.0 K/CMM 1.5 - 8.1 09/10 HI MH /2011 [facility] HEMATOLOGY Basophils 0.6 % 0.0 - 1.0 11 Normal MH /2011 [facility] HEMATOLOGY Eosinophils 1.5 % 0.0 - 4.0 09/10 Normal MH /2011 [facility] HEMATOLOGY Lymphocytes 4.9 K/CMM 1.0 - 5.5 09/10 Normal MH # /2011 [facility] HEMATOLOGY Monocytes # 1.3 K/CMM 0.0 - 0.8 09/10 HI MH /2011 [facility] HEMATOLOGY Eosinophils 0.2 K/CMM 0.0 - 0.5 09/10 Normal MH # /2011 [facility] HEMATOLOGY Basophils # 0.1 K/CMM 0.0 - 0.2 09/10 Normal MH /2011 [facility] HEMATOLOGY Lymphocytes 31.7 % 20.0 - 09/10 Normal MH 40.0 [facility] HEMATOLOGY Monocytes 8.2 % 2.0 - 12.0 09/10 Normal MH /2011 [facility] HEMATOLOGY Segs 58.0 % 45.0 - 09/10 Normal MH 75.0 [facility] STOOL Occult Bld Negative Negative 09/10 Normal TESTS Stl /2011 [facility] (09/09/2012 19:45:00) CHEMISTRY Ferritin Lvl 12 ng/mL 5 - 204 09/09 Normal MH [facility] CHEMISTRY G-6-PD Qnt 23.0 7.0 - 20.5 09/09 HI Units/g /2011 [facility] Hgb HEMATOLOGY Sed Rate 22 mm/h 0 - 20 09/09 HI MH /2011 [facility] HEMATOLOGY Eosinophils 0.9 % 0.0 - 4.0 09/09 Normal MH [facility] HEMATOLOGY Basophils 0.3 % 0.0 - 1.0 09/09 Normal MH [facility] HEMATOLOGY Segs 71.9 % 45.0 - 09/09 Normal MH 75.0 2012 [facility] HEMATOLOGY Lymphocytes 18.6 % 20.0 - 09/09 LOW MH 40.0 [facility] HEMATOLOGY Monocytes 8.3 % 2.0 - 12.0 09/09 Normal MH [facility] CHEMISTRY eGFR 86 09/09 NA 2Result Comment: The eGFR is calculated using the CKD-EPI formula. In most young, healthy individuals the eGFR will be > 90 mL/min/1.73m2. The eGFR declines with age. An eGFR of 60-89 may be normal in mL/min/1. some populations, particularly the elderly, for whom the CKD-EPI formula has not been extensively validated. Use of the eGFR is not recommended in the following populations: [facility] 3m2 Individuals with unstable creatinine concentrations, including patients and those with serious co-morbid conditions. Patients with extremes in muscle mass or diet. The data above are obtained from the National Kidney Disease Education Program (NKDEP) which additionally recommends that when the eGFR is used in patients with extremes of body mass index for purposes of drug dosing, the eGFR should be multiplied by the estimated BMI. CHEMISTRY Creatinine 0.9 mg/dL 0.5 - 1.4 09/09 Normal Lvl [facility] CHEMISTRY BUN 9 mg/dL 7 - 22 09/09 Normal [facility] CHEMISTRY Potassium 3.9 meq/L 3.5 - 5.1 09/09 Normal l [facility] CHEMISTRY Sodium Lvl 142 meq/L 135 - 145 09/09 Normal [facility] CHEMISTRY Calcium Lvl 8.7 mg/dL 8.5 - 10.5 09/09 Normal [facility] CHEMISTRY CO2 25 meq/L 24 - 32 09/09 Normal [facility] CHEMISTRY Chloride Lvl 107 meq/L 95 - 109 09/09 Normal [facility] CHEMISTRY Glucose Lvl 91 mg/dL 70 - 99 09/09 Normal 5Interpretive Data: Adult reference range values reflect the clinical guidelines of the [place] [employer]. [facility] [facility] AGAP 13.9 meq/L 10.0 - 09/09 Normal MH 20.0 [facility] CHEMISTRY Bili 0.2 mg/dL 0.0 - 1.0 09/09 Normal [facility] CHEMISTRY Bili Total 0.3 mg/dL 0.2 - 1.3 09/09 Normal [facility] CHEMISTRY Bili Direct 0.1 mg/dL 0.0 - 0.3 09/09 Normal [facility] CHEMISTRY AST 11 unit/L 0 - 37 09/09 Normal [facility] CHEMISTRY A/G Ratio 0.8 0.7 - 1.6 09/09 Normal [facility] CHEMISTRY Globulin 3.6 g/dL 2.0 - 4.0 09/09 Normal [facility] CHEMISTRY Total 6.6 g/dL 6.4 - 8.4 09/09 Normal [facility] CHEMISTRY Alk Phos 74 unit/L 39 - 136 09/09 Normal [facility] CHEMISTRY Albumin Lvl 3.0 g/dL 3.5 - 5.0 11 LOW MH /2011 [facility] CHEMISTRY ALT 18 unit/L 0 - 65 09/09 Normal MH [facility] CHEMISTRY CHD Risk 2.10 3.90 - 09/09 LOW MH 5.80 /2011 [facility] CHEMISTRY LDL 65 mg/dL 0 - 129 09/09 Normal MH /2011 [facility] CHEMISTRY HDL 77 mg/dL >=35 09/09 Normal MH [facility] CHEMISTRY Chol 162 mg/dL 120 - 200 09/09 Normal MH [facility] CHEMISTRY Trig 101 mg/dL 0 - 200 09/09 Normal MH /2011 [facility] HEMATOLOGY WBC 15.8 K/CMM 3.7 - 10.4 11 HI MH /2011 [facility] HEMATOLOGY RBC 3.88 M/CMM 4.20 - 09/09 LOW MH 5.40 [facility] HEMATOLOGY MPV 8.5 fL 7.4 - 10.4 09/09 Normal MH [facility] HEMATOLOGY Platelet 344 K/CMM 133 - 450 09/09 Normal MH [facility] HEMATOLOGY RDW 15.2 % 11.5 - 09/09 HI MH 14.5 [facility] HEMATOLOGY Hct 30.7 % 36.0 - 09/09 LOW MH 48.0 /2011 [facility] HEMATOLOGY Hgb 10.3 g/dL 12.0 - 09/09 LOW MH 16.0 [facility] HEMATOLOGY MCV 79.2 fL 81.0 - 09/09 LOW MH 99.0 /2011 [facility] HEMATOLOGY MCHC 33.3 g/dL 32.0 - 09/09 Normal MH 36.0 [facility] HEMATOLOGY MCH 26.4 pg 27.0 - 09/09 LOW MH 31.0 [facility] HEMATOLOGY Eosinophils 0.2 K/CMM 0.0 - 0.5 09/09 Normal MH # /2011 [facility] HEMATOLOGY Basophils # 0.1 K/CMM 0.0 - 0.2 09/09 Normal MH /2011 [facility] HEMATOLOGY Monocytes # 1.5 K/CMM 0.0 - 0.8 11 HI MH /2011 [facility] HEMATOLOGY Lymphocytes 29.2 % 20.0 - 11 Normal MH 40.0 [facility] HEMATOLOGY Segs 59.6 % 45.0 - 09/09 Normal MH 75.0 /2011 [facility] HEMATOLOGY Basophils 0.5 % 0.0 - 1.0 09/09 Normal MH /2011 [facility] HEMATOLOGY Segs-Bands # 9.4 K/CMM 1.5 - 8.1 09/09 HI [facility] HEMATOLOGY Lymphocytes 4.6 K/CMM 1.0 - 5.5 09/09 Normal MH # [facility] HEMATOLOGY Monocytes 9.5 % 2.0 - 12.0 09/09 Normal [facility] HEMATOLOGY Eosinophils 1.2 % 0.0 - 4.0 09/09 Normal [facility] HEMATOLOGY PT 14.8 s 12.0 - 09/09 [facility] 14.7 [facility] HEMATOLOGY INR 1.14 0.85 - 09/09 Normal 8Interpretive Data: RECOMMENDED RANGES FOR PROTIME INR: 11.06 2.0-3.0 for most medical and surgical thromboembolic states. [facility] 2.5-3.5 for artificial heart valves and recurrent embolism. INR SHOULD BE USED ONLY FOR PATIENTS ON STABLE ANTICOAGULANT THERAPY. HEMATOLOGY Retic Auto 1.5 % 0.5 - 1.5 09/08 Normal [facility] URINALYSIS UA null 0.1 - 1.0 09/08 Urobilinogen [facility] URINALYSIS UA Bacteria Occasional /HPF None Seen 09/08 NA [facility] *NA* (09/08/2012 14:55:00) URINALYSIS UA Mucus Few /LPF None Seen 09/08 NA [facility] *NA* (09/08/2012 14:55:00) URINALYSIS UA Sq Epi Few /LPF Few 09/08 NA [facility] *NA* (09/08/2012 14:55:00) URINALYSIS UA RBC null 0 - 2 09/08 Normal [facility] URINALYSIS UA Color Light Yellow Yellow 09/08 NA [facility] *NA* (09/08/2012 14:55:00) URINALYSIS UA Nitrite Negative Negative 09/08 Normal [facility] (09/08/2012 14:55:00) URINALYSIS UA Ketones Negative mg/dL Negative 09/08 NA [facility] *NA* (09/08/2012 14:55:00) URINALYSIS UA Bili Negative Negative 09/08 NA [facility] *NA* (09/08/2012 14:55:00) URINALYSIS UA WBC null 0 - 5 09/08 Normal [facility] URINALYSIS UA Blood Negative Negative 09/08 Normal [facility] (09/08/2012 14:55:00) URINALYSIS UA Leuk Est Negative Negative 09/08 Normal [facility] (09/08/2012 14:55:00) URINALYSIS UA Glucose Negative mg/dL Negative 09/08 NA [facility] *NA* (09/08/2012 14:55:00) URINALYSIS UA Protein Negative mg/dL Negative 09/08 Normal [facility] (09/08/2012 14:55:00) URINALYSIS UA pH 7.0 5.0 - 8.0 09/08 Normal [facility] URINALYSIS UA Turbidity Clear Clear 09/08 Normal [facility] (09/08/2012 14:55:00) URINALYSIS UA Spec Grav 1.003 <=1.030 09/08 Normal [facility] BLOOD BANK ABO/Rh B POS 09/08 Unknown MH RESULTS /2011 [facility] BLOOD BANK Antibody Negative 09/08 Normal RESULTS Scrn [facility] (09/08/2012 14:05:00) HEMATOLOGY Segs-Bands # 10.5 K/CMM 1.5 - 8.1 09/08 HI MH /2011 [facility] HEMATOLOGY Lymphocytes 6.5 K/CMM 1.0 - 5.5 09/08 HI MH # /2011 [facility] HEMATOLOGY Monocytes # 1.7 K/CMM 0.0 - 0.8 09/08 HI /2011 [facility] HEMATOLOGY Basophils # 0.3 K/CMM 0.0 - 0.2 09/08 HI /2011 [facility] HEMATOLOGY Eosinophils 0.2 K/CMM 0.0 - 0.5 09/08 Normal MH # /2011 [facility] HEMATOLOGY Polychrom Slight None Seen 09/08 Normal /2011 [facility] (09/08/2012 14:05:00) HEMATOLOGY Hypochrom Slight None Seen 09/08 Normal /2011 [facility] (09/08/2012 14:05:00) HEMATOLOGY Plt Morph Normal 09/08 Normal /2011 [facility] (09/08/2012 14:05:00) HEMATOLOGY MPV 7.9 fL 7.4 - 10.4 09/08 Normal [facility] HEMATOLOGY Hgb 9.7 g/dL 12.0 - 09/08 LOW 16.0 [facility] HEMATOLOGY Hct 29.9 % 36.0 - 09/08 LOW 48.0 [facility] HEMATOLOGY MCV 79.6 fL 81.0 - 09/08 LOW MH 99.0 /2011 [facility] HEMATOLOGY MCH 25.9 pg 27.0 - 09/08 LOW MH 31.0 /2011 [facility] HEMATOLOGY RBC 3.76 M/CMM 4.20 - 09/08 LOW MH 5.40 /2011 [facility] HEMATOLOGY MCHC 32.5 g/dL 32.0 - 09/08 Normal MH 36.0 /2011 [facility] HEMATOLOGY RDW 15.2 % 11.5 - 09/08 HI MH 14.5 [facility] HEMATOLOGY Platelet 351 K/CMM 133 - 450 09/08 Normal /2011 [facility] HEMATOLOGY WBC 19.1 K/CMM 3.7 - 10.4 09/08 HI MH /2011 [facility] BLOOD BANK TOSHIA Gel Int Negative 09/08 Normal MH RESULTS /2011 [facility] (09/08/2012 14:00:00) BLOOD BANK C3 Int Negative 09/08 Normal MH RESULTS [facility] (09/08/2012 14:00:00) CHEMISTRY RBC Folate 587 ng/mL 280 - 791 09/08 Normal [facility] CHEMISTRY Vitamin B12 582 pg/mL 254 - 1320 09/08 Normal Lvl [facility] CHEMISTRY TIBC 293 ug/dl 228 - 428 09/08 Normal [facility] CHEMISTRY Iron 62 ug/dl 30 - 160 09/08 Normal [facility] CHEMISTRY UIBC 231 ug/dl 110 - 370 09/08 Normal [facility] CHEMISTRY % S[place] Fe 21 % 12 - 57 09/08 Normal [facility] CHEMISTRY Troponin-I null 0.00 - 09/08 Normal 0.40 [facility] CHEMISTRY CK MB null 0.5 - 3.6 09/08 Normal [facility] CHEMISTRY Total CK 88 unit/L 12 - 191 09/08 Normal [facility] IMMUNOLOGY Tot Prot 6.4 g/dL 6.4 - 8.4 09/08 Normal (SPE) [facility] IMMUNOLOGY Beta Glob 1.48 g/dL 0.50 - 09/08 HI MH 1.15 [facility] IMMUNOLOGY SPE Interp Total 09/08 NA protein [facility] borderline decreased with a correspond ing decrease in serum albumin.No definite monoclonal proteins are identified . However, the beta-2 peak (0.54 g/dl) is unusually prominent and, therefore, an underlying monoclonal protein cannot be excluded. Clinical correlatio n is recommende d with immunofixa tion electropho resis of serum and urine if clinically indicated. IMMUNOLOGY Gamma Glob 0.81 g/dL 0.71 - 11 Normal MH 1.57 [place] IMMUNOLOGY Alpha 2 Glob 0.70 g/dL 0.45 - 11 Normal MH 1.00 [facility] IMMUNOLOGY Alpha 1 Glob 0.35 g/dL 0.18 - 11 Normal MH 0.41 /2011 [facility] IMMUNOLOGY Beta % 23.2 REL % 7.8 - 13.7 09/08 HI MH /2011 [facility] IMMUNOLOGY Albumin 3.06 g/dL 3.57 - 11 LOW MH (SPE) 5.55 /2011 [place] IMMUNOLOGY Alpha 2 % 10.9 REL % 7.0 - 11.9 09/08 Normal MH /2011 [place] IMMUNOLOGY Alpha 1 % 5.4 REL % 2.8 - 4.9 09/08 HI MH /2011 [place] IMMUNOLOGY Gamma % 12.7 REL % 11.1 - 11 Normal MH 18.7 [facility] IMMUNOLOGY Albumin % 47.8 REL % 55.8 - 09/08 LOW MH 66.1 /2011 [facility] CHEMISTRY AGAP 13.2 meq/L 10.0 - 09/08 Normal MH 20.0 [facility] CHEMISTRY eGFR 67 09/08 NA 3Result Comment: The eGFR is calculated using the CKD-EPI formula. In most young, healthy individuals the eGFR will be > 90 mL/min/1.73m2. The eGFR declines with age. An eGFR of 60-89 may be normal in mL/min/1.7 some populations, particularly the elderly, for whom the CKD-EPI formula has not been extensively validated. Use of the eGFR is not recommended in the following populations: [facility] 3m2 Individuals with unstable creatinine concentrations, including patients and those with serious co-morbid conditions. Patients with extremes in muscle mass or diet. The data above are obtained from the National Kidney Disease Education Program (NKDEP) which additionally recommends that when the eGFR is used in patients with extremes of body mass index for purposes of drug dosing, the eGFR should be multiplied by the estimated BMI. CHEMISTRY Calcium Lvl 8.2 mg/dL 8.5 - 10.5 09/08 LOW [facility] CHEMISTRY BUN 10 mg/dL 7 - 22 09/08 Normal [facility] CHEMISTRY Glucose Lvl 88 mg/dL 70 - 99 09/08 Normal 6Interpretive Data: Adult reference range values reflect the clinical guidelines of the [employer]. [facility] CHEMISTRY Sodium Lvl 143 meq/L 135 - 145 09/08 Normal [facility] CHEMISTRY Creatinine 1.1 mg/dL 0.5 - 1.4 09/08 Normal Lvl [facility] CHEMISTRY CO2 28 meq/L 24 - 32 09/08 Normal [facility] CHEMISTRY Chloride Lvl 105 meq/L 95 - 109 09/08 Normal [facility] CHEMISTRY Potassium 3.2 meq/L 3.5 - 5.1 09/08 LOW MH Lvl [facility] CHEMISTRY Total CK 93 unit/L 12 - 191 09/08 Normal [facility] CHEMISTRY CK MB null 0.5 - 3.6 09/08 Normal [facility] CHEMISTRY Troponin-I null 0.00 - 09/08 Normal 0.40 [facility] URINALYSIS UA Leuk Est Negative Negative 09/08 Normal [facility] (09/08/2012 02:20:00) URINALYSIS UA Blood Negative Negative 09/08 Normal [facility] (09/08/2012 02:20:00) URINALYSIS UA Nitrite Negative Negative 09/08 Normal [facility] (09/08/2012 02:20:00) URINALYSIS UA 0.2 EU/dL 0.1 - 1.0 09/08 Normal [place] [facility] URINALYSIS UA Ketones Negative mg/dL Negative 09/08 NA [facility] *NA* (09/08/2012 02:20:00) URINALYSIS UA Glucose Negative mg/dL Negative 09/08 Normal [facility] (09/08/2012 02:20:00) URINALYSIS UA Bili Negative Negative 09/08 NA [facility] *NA* (09/08/2012 02:20:00) URINALYSIS UA Protein Negative mg/dL Negative 09/08 Normal [facility] (09/08/2012 02:20:00) URINALYSIS UA Spec Grav 1.010 <=1.030 09/08 Normal [facility] URINALYSIS UA pH 6.0 5.0 - 8.0 09/08 Normal [facility] URINALYSIS UA Turbidity Clear Clear 09/08 Normal [facility] (09/08/2012 02:20:00) URINALYSIS UA Color Yellow Yellow 09/08 NA [facility] *NA* (09/08/2012 02:20:00) URINALYSIS UA Bacteria Few /HPF None Seen 09/08 Normal [facility] (09/08/2012 02:20:00) URINALYSIS Micro? Performed 09/08 Normal [facility] (09/08/2012 02:20:00) URINALYSIS UA Sq Epi Occasional /LPF Few 09/08 Normal [facility] (09/08/2012 02:20:00) URINALYSIS UA WBC 0-2 /HPF None Seen 09/08 Normal [facility] (09/08/2012 02:20:00) URINALYSIS UA RBC None Seen 0 - 2 09/08 Normal [facility] (09/08/2012 02:20:00) CHEMISTRY CK MB Index 0.6 0.0 - 2.5 09/08 Normal [facility] CHEMISTRY CK MB 0.7 ng/mL 0.5 - 3.6 09/08 Normal [facility] CHEMISTRY Troponin-I null 0.00 - 09/08 Normal 0.40 [facility] CHEMISTRY BNP 29 pg/mL <=100 09/08 Normal 7Interpretive Data: Elevated results are in line with increasing severity of congestive heart failure. Minor elevations between 100 and 300 [place] may be seen with Myocardial Ischemia, Sodium retaining drugs, and compensated/treated heart failure. CHEMISTRY Total CK 125 unit/L 12 - 191 09/08 Normal [facility] CHEMISTRY Alk Phos 91 unit/L 39 - 136 09/08 Normal [facility] CHEMISTRY AST 7 unit/L 0 - 37 09/08 Normal [facility] CHEMISTRY Bili Total 0.2 mg/dL 0.2 - 1.3 09/08 Normal [facility] CHEMISTRY B/C Ratio 9 6 - 25 09/08 Normal [facility] CHEMISTRY Globulin 4.2 g/dL 2.0 - 4.0 09/08 HI [facility] CHEMISTRY A/G Ratio 0.8 0.7 - 1.6 09/08 Normal [facility] CHEMISTRY Albumin Lvl 3.3 g/dL 3.5 - 5.0 09/08 LOW [facility] CHEMISTRY Total 7.5 g/dL 6.4 - 8.4 09/08 Normal [facility] CHEMISTRY ALT 21 unit/L 0 - 65 09/08 Normal [facility] HEMATOLOGY PTT 27.4 s 22.9 - 09/08 Normal 10Interpretiv MH 35.8 /2011 e Data: [facility] Heparin Therapeutic Range: 57 - 92 [place] HEMATOLOGY PT 14.3 s 12.0 - 09/08 Normal 14.7 [facility] HEMATOLOGY INR 1.09 0.85 - 09/08 Normal 9Interpretive Data: RECOMMENDED RANGES FOR PROTIME INR: . 2.0-3.0 for most medical and surgical thromboembolic states. [facility] 2.5-3.5 for artificial heart valves and recurrent embolism. INR SHOULD BE USED ONLY FOR PATIENTS ON STABLE ANTICOAGULANT THERAPY. CHEMISTRY Potassium 3.7 meq/L 3.5 - 5.1 09/02 Normal [facility] URINALYSIS UA Glucose Negative mg/dL Negative 09/02 [facility] *NA* (09/01/2012 21:20:00) URINALYSIS UA Ketones Negative mg/dL Negative 09/02 [facility] *NA* (09/01/2012 21:20:00) URINALYSIS UA Bili Negative Negative 09/02 [facility] *NA* (09/01/2012 21:20:00) URINALYSIS UA Blood Negative Negative 09/02 Normal [facility] (09/01/2012 21:20:00) URINALYSIS UA Color Yellow Yellow 09/02 [facility] *NA* (09/01/2012 21:20:00) URINALYSIS UA Spec Grav 1.012 <=1.030 09/02 Normal [facility] URINALYSIS UA Turbidity Clear Clear 09/02 Normal [facility] (09/01/2012 21:20:00) URINALYSIS UA RBC null 0 - 2 09/02 Normal [facility] URINALYSIS UA Bacteria Occasional /HPF None Seen 09/02 [facility] *NA* (09/01/2012 21:20:00) URINALYSIS UA Mucus Few /LPF None Seen 09/02 [facility] *NA* (09/01/2012 21:20:00) URINALYSIS UA pH 7.0 5.0 - 8.0 09/02 Normal [facility] URINALYSIS UA Protein Negative mg/dL Negative 09/02 Normal [facility] (09/01/2012 21:20:00) URINALYSIS UA WBC 1 /HPF 0 - 5 09/02 Normal [facility] URINALYSIS UA 2.0 mg/dL 0.1 - 1.0 09/02 [place] Urobilinogen [facility] URINALYSIS UA Leuk Est Negative Negative 09/02 Normal [facility] (09/01/2012 21:20:00) URINALYSIS UA Nitrite Negative Negative 09/02 Normal [facility] (09/01/2012 21:20:00) URINALYSIS UA Sq Epi Many /LPF Few 09/02 ABN [facility] *ABN* (09/01/2012 21:20:00) CHEMISTRY Lipase Lvl 274 unit/L 73 - 393 09/01 Normal [facility] CHEMISTRY Amylase Lvl 64 unit/L 25 - 115 09/01 Normal [facility] CHEMISTRY BNP 60 pg/mL <=100 09/01 Normal 4Interpretive Data: Elevated results are in line with increasing severity of congestive heart failure. Minor elevations between 100 and [address] [place] may be seen with Myocardial Ischemia, Sodium retaining drugs, and compensated/treated heart failure. CHEMISTRY Trig 130 mg/dL 0 - 200 09/01 Normal [facility] CHEMISTRY Chol 151 mg/dL 120 - 200 09/01 Normal [facility] CHEMISTRY CHD Risk 2.25 3.90 - 09/01 LOW MH 5.80 [facility] CHEMISTRY HDL 67 mg/dL >=35 09/01 Normal [facility] CHEMISTRY LDL 58 mg/dL 0 - 129 09/01 Normal [facility] CHEMISTRY TSH 0.334 0.360 - 09/01 LOW uIU/mL 3.740 [facility] CHEMISTRY eGFR 60 09/01 NA 2Result Comment: The eGFR is calculated using the CKD-EPI formula. In most young, healthy individuals the eGFR will be > 90 mL/min/1.73m2. The eGFR declines with age. An eGFR of 60-89 may be normal in mL/min/1.7 2012 some populations, particularly the elderly, for whom the CKD-EPI formula has not been extensively validated. Use of the eGFR is not recommended in the following populations: [facility] 3m2 Individuals with unstable creatinine concentrations, including patients and those with serious co-morbid conditions. Patients with extremes in muscle mass or diet. The data above are obtained from the National Kidney Disease Education Program (NKDEP) which additionally recommends that when the eGFR is used in patients with extremes of body mass index for purposes of drug dosing, the eGFR should be multiplied by the estimated BMI. CHEMISTRY Creatinine 1.2 mg/dL 0.5 - 1.4 09/01 Normal Lvl [facility] CHEMISTRY CO2 27 meq/L 24 - 32 09/01 Normal MH /2011 [facility] CHEMISTRY Chloride Lvl 103 meq/L 95 - 109 09/01 Normal [facility] CHEMISTRY Potassium 2.8 meq/L 3.5 - 5.1 09/01 CRIT 1Result Lvl Comment: [facility] Critical Result(s) called to gaye heath at 09/01/2012 17:56:50 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 by sp. Read back OK. CHEMISTRY Sodium Lvl 143 meq/L 135 - 145 09/01 Normal [facility] CHEMISTRY Calcium Lvl 8.2 mg/dL 8.5 - 10.5 09/01 LOW [facility] CHEMISTRY AGAP 15.8 meq/L 10.0 - 09/01 Normal 20. [facility] CHEMISTRY BUN 7 mg/dL 7 - 22 09/01 Normal [facility] CHEMISTRY Glucose Lvl 122 mg/dL 70 - 99 09/01 [place] 3Interpretive Data: Adult reference range values reflect the clinical guidelines of the [employer]. [facility] CHEMISTRY Troponin-I null 0.00 - 09/01 Normal 0.40 [facility] CHEMISTRY CK MB null 0.5 - 3.6 09/01 Normal [facility] CHEMISTRY Total CK 125 unit/L 12 - 191 09/01 Normal [facility] CHEMISTRY CK MB Index null 0.0 - 2.5 09/01 Normal [facility] IMMUNOLOGY CRP, High 11.6 mg/L 09/01 NA 5Interpretive Data: Low Risk: <1.0 mg/L Sensitivity Average Risk: 1.0 - 3.0 mg/L [facility] High Risk: >10.0 mg/L CHEMISTRY Lipase Lvl 255.0 U/L 73 - 393 09/06 Normal [place] CHEMISTRY A/G Ratio 0.7 0.7 - 1.6 09/06 Normal [place] /2010 [place] CHEMISTRY AGAP 16.4 meq/L 10.0 - 09/06 Normal [place] 20.0 [place] CHEMISTRY B/C Ratio 12.0 6 - 25 09/06 Normal [place] CHEMISTRY Globulin 5.2 g/dL 2.0 - 4.0 09/06 HI MH [place] CHEMISTRY ALT 21.0 U/L 0 - 65 09/06 Normal MH [place] CHEMISTRY Alk Phos 111.0 U/L 39 - 136 09/06 Normal MH [place] CHEMISTRY Bili Total 0.4 mg/dL 0.2 - 1.3 09/06 Normal MH [place] CHEMISTRY Potassium 4.4 meq/L 3.5 - 5.1 09/06 Normal MH [place] CHEMISTRY Chloride Lvl 103.0 95 - 109 09/06 Normal MH [place] meq/L [place] CHEMISTRY Sodium Lvl 138.0 135 - 145 09/06 Normal MH [place] meq/L [place] CHEMISTRY Creatinine 0.9 mg/dL 0.5 - 1.4 09/06 Normal MH [place] CHEMISTRY Albumin Lvl 3.6 g/dL 3.5 - 5.0 09/06 Normal MH [place] CHEMISTRY Total 8.8 g/dL 6.4 - 8.4 09/06 HI MH [place] CHEMISTRY Calcium Lvl 9.4 mg/dL 8.5 - 10.5 09/06 Normal MH [place] CHEMISTRY CO2 23.0 meq/L 24 - 32 09/06 LOW MH [place] CHEMISTRY AST 13.0 U/L 0 - 37 09/06 Normal MH [place] CHEMISTRY Glucose Lvl 107.0 09/06 NA 1Interpretive MH [place] mg/dL /2010 Data: [place] Reference Ranges : 0 - 7 days : 41 - 90 mg/dL7 days - 150 yrs : 70 - 99 mg/dL (fasting), based on the clinical recommendatio ns of the [place] [employer]. CHEMISTRY BUN 11.0 mg/dL 7 - 22 09/06 Normal MH [place] CHEMISTRY Amylase Lvl 97.0 U/L 25 - 115 09/06 Normal MH [place] HEMATOLOGY Platelet 112.0 133 - 450 09/06 LOW MH [place] K/CMM /2010 [place] HEMATOLOGY MPV 9.2 fL 7.4 - 10.4 09/06 Normal MH [place] HEMATOLOGY RDW 15.4 % 11. - 09/06 HI MH [place] 14.5 [place] HEMATOLOGY MCH 25.9 pg 27.0 - 09/06 LOW MH [place] 31.0 /2010 [place] HEMATOLOGY MCHC 33.0 g/dL 32.0 - 09/06 Normal MH [place] 36.0 /2010 [place] HEMATOLOGY Hct 36.3 % 36.0 - 09/06 Normal MH [place] 48.0 /2010 [place] HEMATOLOGY MCV 78.5 fL 81.0 - 09/06 LOW MH [place] 99.0 /2010 [place] HEMATOLOGY Hgb 12.0 g/dL 12.0 - 09/06 Normal MH [place] 16.0 /2010 [place] HEMATOLOGY WBC 12.6 K/CMM 3.7 - 10.4 09/06 HI MH [place] /2010 [place] HEMATOLOGY RBC 4.62 M/CMM 4.20 - 09/06 Normal MH [place] 5.40 /2010 [place] HEMATOLOGY Basophils 0.6 % 0.0 - 1.0 09/06 Normal [place] /2010 [place] HEMATOLOGY Segs-Bands # 7.6 K/CMM 1.5 - 8.1 09/06 Normal [place] /2010 [place] HEMATOLOGY Lymphocytes 4.0 K/CMM 1.0 - 5.5 09/06 Normal [place] # /2010 [place] HEMATOLOGY Basophils # 0.1 K/CMM 0.0 - 0.2 09/06 Normal [place] /2010 [place] HEMATOLOGY Eosinophils 0.0 K/CMM 0.0 - 0.5 09/06 Normal [place] # /2010 [place] HEMATOLOGY Monocytes # 0.9 K/CMM 0.0 - 0.8 09/06 HI MH [place] /2010 [place] HEMATOLOGY Monocytes 7.2 % 2.0 - 12.0 09/06 Normal [place] /2010 [place] HEMATOLOGY Lymphocytes 32.0 % 20.0 - 09/06 Normal [place] 40.0 /2010 [place] HEMATOLOGY Segs 59.9 % 45.0 - 09/06 Normal [place] 75.0 /2010 [place] HEMATOLOGY Eosinophils 0.3 % 0.0 - 4.0 09/06 Normal [place] URINALYSIS UA Sq Epi Moderate /LPF >Few 09/06 ABN [place] *ABN* (09/06/2011 12:40:00) ?? URINALYSIS Micro? Performed 09/06 Normal [place] (09/06/2011 12:40:00) ?? URINALYSIS UA Leuk Est Negative >Negative 09/06 Normal [place] (09/06/2011 12:40:00) ?? URINALYSIS UA Nitrite Negative >Negative 09/06 Normal [place] (09/06/2011 12:40:00) ?? URINALYSIS UA Bacteria None Seen >None Seen 09/06 Normal [place] (09/06/2011 12:40:00) ?? URINALYSIS UA WBC 0-2 /HPF >None Seen 09/06 Normal [place] (09/06/2011 12:40:00) ?? URINALYSIS UA RBC 0-2 /HPF >0 - 2 09/06 Normal [place] (09/06/2011 12:40:00) ?? URINALYSIS UA Blood Negative >Negative 09/06 Normal [place] (09/06/2011 12:40:00) ?? URINALYSIS UA 0.2 EU/dL 0.1 - 1.0 09/06 Normal [place] URINALYSIS UA Ketones Negative >Negative 09/06 [facility] [place] *NA* (09/06/2011 12:40:00) ?? URINALYSIS UA Bili Negative >Negative 09/06 [facility] [place] *NA* (09/06/2011 12:40:00) ?? URINALYSIS UA Glucose Negative >Negative 09/06 Normal [place] (09/06/2011 12:40:00) ?? URINALYSIS UA pH 7.0 5.0 - 8.0 09/06 Normal [place] URINALYSIS UA Protein Negative >Negative 09/06 Normal [place] (09/06/2011 12:40:00) ?? URINALYSIS UA Spec Grav <=1.005 <<=1.030 09/06 [facility] [place]
*NA*< /2010 [place] br/>(09/06 12:40:00) <sup>??</s up> URINALYSIS UA Turbidity Clear >Clear 09/06 Normal [place] (09/06/2011 12:40:00) ?? URINALYSIS UA Color Yellow >Yellow 09/06 [facility] [place] *NA* (09/06/2011 12:40:00) ?? Bacterial Urine [place] urine Bacteria [facility] Vital Signs Vital Sign Value Date Comments Source Temperature Oral (F) 98.2 F 12/18/2017 [facility] [place] Heart Rate 74 12/18/2017 [facility] [place] [facility] [place] Respitory Rate 18 12/18/[address] [facility] [facility] [place] Systolic (mm Hg) 106 12/18/[address] [facility] [facility] [place] Diastolic (mm Hg) 63 12/18/[address] [facility] [place] [facility] [place] Height 62 12/17/[address] [facility] [facility] [place] Weight 160 12/17/[address] [facility] [place] [facility] [place] Respitory Rate 18 04/14/2017 [facility] Temperature Oral (F) 97.8 F 04/14/2017 [facility] Systolic (mm Hg) 141 04/14/2017 [facility] Diastolic (mm Hg) 85 04/14/2017 [facility] Heart Rate 84 04/14/2017 [facility] Heart Rate 92 04/14/2017 [facility] Temperature Oral (F) 98.0 F 04/14/2017 [facility] Systolic (mm Hg) 113 04/14/2017 [facility] Diastolic (mm Hg) 75 04/14/2017 [facility] Respitory Rate 18 04/14/2017 [facility] Systolic (mm Hg) 124 04/14/2017 [facility] Diastolic (mm Hg) 79 04/14/2017 [facility] Respitory Rate 18 04/14/2017 [facility] Heart Rate 88 04/14/2017 [facility] Temperature Oral (F) 97.9 F 04/14/2017 [facility] BMI Calculated 36.84 04/12/2017 [facility] Height 157.48 cm 04/12/2017 [facility] Weight 91.364 04/12/2017 [facility] Respitory Rate 17 12/18/[facility] Heart Rate 82 12/18/2016 [facility] Systolic (mm Hg) 132 12/18/2016 [facility] Diastolic (mm Hg) 73 12/18/2016 [facility] Respitory Rate 17 12/18/2016 [facility] Heart Rate 80 12/18/2016 [facility] Systolic (mm Hg) 133 12/18/2016 [facility] Diastolic (mm Hg) 81 12/18/2016 [facility] Respitory Rate 16 12/18/2016 [facility] Heart Rate 75 12/18/2016 [facility] Systolic (mm Hg) 139 12/18/2016 [facility] Diastolic (mm Hg) 89 12/18/2016 [facility] BMI Calculated 34.64 12/18/2016 [facility] Weight 85.909 12/18/2016 [facility] Height 157.48 cm 12/18/2016 [facility] Systolic (mm Hg) 129 09/21/2016 [facility] Diastolic (mm Hg) 81 09/21/2016 [facility] Heart Rate 82 09/21/2016 [facility] Temperature Oral (F) 98.2 F 09/21/2016 [facility] Respitory Rate 20 09/21/2016 [facility] Respitory Rate 20 09/21/2016 [facility] Systolic (mm Hg) 120 09/21/2016 [facility] Diastolic (mm Hg) 76 09/21/2016 [facility] Temperature Oral (F) 97.9 F 09/21/2016 [facility] Heart Rate 76 09/21/2016 [facility] Respitory Rate 20 09/21/2016 [facility] Systolic (mm Hg) 121 09/21/2016 [facility] Diastolic (mm Hg) 75 09/21/2016 [facility] Heart Rate 78 09/21/2016 [facility] Temperature Oral (F) 98.1 F 09/21/2016 [facility] Weight 86.364 09/19/2016 [facility] BMI Calculated 34.82 09/19/2016 [facility] Height 157.48 cm 09/19/2016 [facility] Temperature Oral (F) 97.8 F 09/04/2016 [facility] Heart Rate 71 09/04/2016 [facility] Respitory Rate 18 09/04/2016 [facility] Systolic (mm Hg) 118 09/04/2016 [facility] Diastolic (mm Hg) 74 09/04/2016 [facility] Temperature Oral (F) 98.3 F 09/04/2016 [facility] Systolic (mm Hg) 109 09/04/2016 [facility] Diastolic (mm Hg) 69 09/04/2016 [facility] Heart Rate 85 09/04/2016 [facility] Respitory Rate 20 09/04/2016 [facility] Systolic (mm Hg) 105 09/04/2016 [facility] Diastolic (mm Hg) 66 09/04/2016 [facility] Respitory Rate 18 09/04/2016 [facility] Temperature Oral (F) 97.4 F 09/04/2016 [facility] Heart Rate 87 09/04/2016 [facility] Weight 87.727 09/02/2016 [facility] BMI Calculated 35.37 09/02/2016 [facility] Height 157.48 cm 09/02/2016 [facility] Systolic (mm Hg) 95 08/31/2016 [facility] Diastolic (mm Hg) 64 08/31/2016 [facility] Respitory Rate 18 08/31/2016 [facility] Temperature Oral (F) 97.7 F 08/31/2016 [facility] Heart Rate 89 08/31/2016 [facility] Systolic (mm Hg) 110 08/31/2016 [facility] Diastolic (mm Hg) 71 08/31/2016 [facility] Heart Rate 89 08/31/2016 [facility] Respitory Rate 18 08/31/2016 [facility] Temperature Oral (F) 98.4 F 08/31/2016 [facility] Systolic (mm Hg) 121 08/31/2016 [facility] Diastolic (mm Hg) 79 08/31/2016 [facility] Temperature Oral (F) 97.9 F 08/31/2016 [facility] Respitory Rate 18 08/31/2016 [facility] Heart Rate 88 08/31/2016 [facility] Weight 86.364 08/29/2016 [facility] BMI Calculated 34.82 08/29/2016 [facility] Height 157.48 cm 08/29/2016 [facility] BMI Calculated 35.19 08/21/2016 [place] Height 157.48 cm 08/21/2016 [place] Weight 87.273 08/21/2016 [place] Temperature Oral (F) 98.1 F 03/28/2016 [facility] Heart Rate 99 03/28/2016 [facility] Respitory Rate 20 03/28/2016 [facility] Systolic (mm Hg) 129 03/28/2016 [facility] Diastolic (mm Hg) 83 03/28/2016 [facility] Heart Rate 95 03/28/2016 [facility] Systolic (mm Hg) 128 03/28/2016 [facility] Diastolic (mm Hg) 73 03/28/2016 [facility] Respitory Rate 20 03/28/2016 [facility] Heart Rate 93 03/28/2016 [facility] Respitory Rate 18 03/28/2016 [facility] Temperature Oral (F) 97.7 F 03/28/2016 [facility] Systolic (mm Hg) 104 03/28/2016 [facility] Diastolic (mm Hg) 65 03/28/2016 [facility] Temperature Oral (F) 97.8 F 03/28/2016 [facility] Weight 94 03/24/2016 [facility] Height 160.02 cm 03/24/2016 [facility] BMI Calculated 36.71 03/24/2016 [facility] Respitory Rate 20 02/20/2016 [facility] Systolic (mm Hg) 136 02/20/2016 [facility] Diastolic (mm Hg) 86 02/20/2016 [facility] Temperature Oral (F) 97.6 F 02/20/2016 [facility] Heart Rate 89 02/20/2016 [facility] Temperature Oral (F) 97.9 F 02/20/2016 [facility] Heart Rate 88 02/20/2016 [facility] Systolic (mm Hg) 133 02/20/2016 [facility] Diastolic (mm Hg) 84 02/20/2016 [facility] Respitory Rate 20 02/20/2016 [facility] Heart Rate 84 02/20/2016 [facility] Temperature Oral (F) 98.6 F 02/20/2016 [facility] Systolic (mm Hg) 145 02/20/2016 [facility] Diastolic (mm Hg) 87 02/20/2016 [facility] Respitory Rate 18 02/20/2016 [facility] Weight 96.989 02/16/2016 [facility] Height 157.48 cm 02/16/2016 [facility] BMI Calculated 39.11 02/16/2016 [facility] Weight 90.909 02/15/2016 [facility] Height 157.48 cm 02/15/2016 [facility] BMI Calculated 36.66 02/15/2016 [facility] Heart Rate 89 01/04/2016 [facility] Respitory Rate 16 01/04/2016 [facility] Systolic (mm Hg) 134 01/04/2016 [facility] Diastolic (mm Hg) 72 01/04/2016 [facility] Heart Rate 86 01/04/2016 [facility] Respitory Rate 17 01/04/2016 [facility] Systolic (mm Hg) 131 01/04/2016 [facility] Diastolic (mm Hg) 84 01/04/2016 [facility] Heart Rate 98 01/04/2016 [facility] Respitory Rate 18 01/04/2016 [facility] Systolic (mm Hg) 140 01/04/2016 [facility] Diastolic (mm Hg) 82 01/04/2016 [facility] Temperature Oral (F) 97.8 F 01/04/2016 [facility] Weight 90.909 01/04/2016 [facility] BMI Calculated 36.66 01/04/2016 [facility] Height 157.48 cm 01/04/2016 [facility] Respitory Rate 19 09/06/2015 [facility] Heart Rate 92 09/06/2015 [facility] Temperature Oral (F) 98.8 F 09/06/2015 [facility] Systolic (mm Hg) 124 09/06/2015 [facility] Diastolic (mm Hg) 81 09/06/2015 [facility] Temperature Oral (F) 98.8 F 09/06/2015 [facility] Systolic (mm Hg) 133 09/06/2015 [facility] Diastolic (mm Hg) 85 09/06/2015 [facility] Respitory Rate 19 09/06/2015 [facility] Heart Rate 90 09/06/2015 [facility] Systolic (mm Hg) 133 09/06/2015 [facility] Diastolic (mm Hg) 8 09/06/2015 [facility] Heart Rate 85 09/06/2015 [facility] Temperature Oral (F) 97.9 F 09/06/2015 [facility] Height 160.02 cm 09/05/2015 [facility] BMI Calculated 32.84 09/05/2015 [facility] Weight 84.091 09/05/2015 [facility] Respitory Rate 18 09/05/2015 [facility] Systolic (mm Hg) 148 07/30/2015 [facility] Diastolic (mm Hg) 78 07/30/2015 [facility] Respitory Rate 16 07/30/2015 [facility] Heart Rate 75 07/30/2015 [facility] Temperature Oral (F) 98.3 F 07/30/2015 [facility] Height 157.48 cm 07/29/2015 [facility] Temperature Oral (F) 97.9 F 07/29/2015 [facility] Systolic (mm Hg) 153 07/29/2015 [facility] Diastolic (mm Hg) 89 07/29/2015 [facility] Respitory Rate 20 07/29/2015 [facility] Heart Rate 92 07/29/2015 [facility] BMI Calculated 34.64 07/29/2015 [facility] Weight 85.909 07/29/2015 [facility] Temperature Oral (F) 97.8 F 11/19/2014 [place] Heart Rate 78 11/19/2014 [place] Systolic (mm Hg) 124 11/19/2014 [place] Respitory Rate 16 11/19/2014 [place] Diastolic (mm Hg) 82 11/19/2014 [place] Respitory Rate 20 11/19/2014 [place] Diastolic (mm Hg) 72 11/19/2014 [place] Temperature Oral (F) 97.8 F 11/19/2014 [place] Systolic (mm Hg) 110 11/19/2014 [place] Heart Rate 79 11/19/2014 [place] Diastolic (mm Hg) 75 11/19/2014 [place] Respitory Rate 20 11/19/2014 [place] Systolic (mm Hg) 111 11/19/2014 [place] Heart Rate 79 11/19/2014 [place] Temperature Oral (F) 97.8 F 11/19/2014 [place] BMI Calculated 35.09 11/16/2014 [place] Weight 87.017 11/16/2014 [place] Height 157.48 cm 11/16/2014 [place] Weight 81.818 11/16/2014 [place] Respitory Rate 20 10/30/2014 [place] Heart Rate 82 10/30/2014 [place] Diastolic (mm Hg) 87 10/30/2014 [place] Systolic (mm Hg) 142 10/30/2014 [place] Respitory Rate 20 10/30/2014 [place] Diastolic (mm Hg) 83 10/30/2014 [place] Systolic (mm Hg) 129 10/30/2014 [place] Heart Rate 80 10/30/2014 [place] Diastolic (mm Hg) 79 10/30/2014 [place] Heart Rate 82 10/30/2014 [place] Respitory Rate 20 10/30/2014 [place] Systolic (mm Hg) 123 10/30/2014 [place] Temperature Oral (F) 98 F 10/30/2014 [place] Temperature Oral (F) 98.1 F 10/30/2014 [place] Temperature Oral (F) 97.8 F 10/30/2014 [place] Weight 89.545 10/29/2014 [place] BMI Calculated 36.11 10/29/2014 [place] Height 157.48 cm 10/29/2014 [place] BMI Calculated 32.68 10/28/2014 [place] Height 165.1 cm 10/28/2014 [place] Weight 89.091 10/28/2014 [place] Temperature Oral (F) 98.1 F 06/21/2014 [facility] Systolic (mm Hg) 110 06/21/2014 [facility] Heart Rate 81 06/21/2014 [facility] Respitory Rate 18 06/21/2014 [facility] Diastolic (mm Hg) 75 06/21/2014 [facility] Temperature Oral (F) 98.1 F 06/21/2014 [facility] Respitory Rate 18 06/21/2014 [facility] Diastolic (mm Hg) 79 06/21/2014 [facility] Systolic (mm Hg) 119 06/21/2014 [facility] Diastolic (mm Hg) 76 06/21/2014 [facility] Respitory Rate 20 06/21/2014 [facility] Temperature Oral (F) 98.5 F 06/21/2014 [facility] Systolic (mm Hg) 112 06/21/2014 [facility] Heart Rate 97 06/21/2014 [facility] Heart Rate 102 06/21/2014 [facility] Height 157.4 cm 06/17/2014 [facility] Weight 72.72 06/17/2014 [facility] BMI Calculated 29.35 06/17/2014 [facility] Height 157.48 cm 06/16/2014 [facility] Weight 72.727 06/16/2014 [facility] BMI Calculated 29.33 06/16/2014 [facility] Systolic (mm Hg) 128 06/06/2014 [place] Diastolic (mm Hg) 79 06/06/2014 [place] Heart Rate 77 06/06/2014 [place] Respitory Rate 18 06/06/2014 [place] BMI Calculated 28.4 06/06/2014 [place] Height 160.02 cm 06/06/2014 [place] Weight 72.727 06/06/2014 [place] Respitory Rate 17 06/06/2014 [place] Temperature Oral (F) 98.4 F 06/06/2014 [place] Systolic (mm Hg) 105 06/06/2014 [place] Diastolic (mm Hg) 71 06/06/2014 [place] Heart Rate 94 06/06/2014 [place] Diastolic (mm Hg) 68 03/31/2013 [place] Systolic (mm Hg) 116 03/31/2013 [place] Respitory Rate 18 03/31/2013 [place] Heart Rate 83 03/31/2013 [place] Temperature Oral (F) 98.4 F 03/31/2013 [place] Temperature Oral (F) 98.2 F 03/31/2013 [place] Heart Rate 79 03/31/2013 [place] Respitory Rate 18 03/31/2013 [place] Systolic (mm Hg) 96 03/31/2013 [place] Diastolic (mm Hg) 52 03/31/2013 [place] Diastolic (mm Hg) 70 03/31/2013 [place] Heart Rate 81 03/31/2013 [place] Temperature Oral (F) 98.3 F 03/31/2013 [place] Systolic (mm Hg) 112 03/31/2013 [place] Respitory Rate 18 03/31/2013 [place] Weight 84.091 03/31/2013 [place] Height 157.48 cm 03/31/2013 [place] Height 157.48 cm 03/30/2013 [place] Weight 84.091 03/30/2013 [place] Diastolic (mm Hg) 77 09/10/2012 [facility] Heart Rate 80 09/10/2012 [facility] Temperature Oral (F) 98.2 F 09/10/2012 [facility] Systolic (mm Hg) 132 09/10/2012 [facility] Respitory Rate 19 09/10/2012 [facility] Systolic (mm Hg) 108 09/10/2012 [facility] Diastolic (mm Hg) 66 09/10/2012 [facility] Respitory Rate 19 09/10/2012 [facility] Heart Rate 90 09/10/2012 [facility] Temperature Oral (F) 98 F 09/10/2012 [facility] Temperature Oral (F) 98.1 F 09/10/2012 [facility] Systolic (mm Hg) 125 09/10/2012 [facility] Diastolic (mm Hg) 89 09/10/2012 [facility] Respitory Rate 18 09/10/2012 [facility] Heart Rate 74 09/10/2012 [facility] Weight 86.400 09/08/2012 [facility] Height 157.48 cm 09/08/2012 [facility] Systolic (mm Hg) 109 09/02/2012 [facility] Respitory Rate 18 09/02/2012 [facility] Heart Rate 74 09/02/2012 [facility] Temperature Oral (F) 97.9 F 09/02/2012 [facility] Diastolic (mm Hg) 62 09/02/2012 [facility] Diastolic (mm Hg) 62 09/02/2012 [facility] Heart Rate 72 09/02/2012 [facility] Respitory Rate 18 09/02/2012 [facility] Systolic (mm Hg) 114 09/02/2012 [facility] Temperature Oral (F) 98.1 F 09/02/2012 [facility] Temperature Oral (F) 98.2 F 09/02/2012 [facility] Diastolic (mm Hg) 58 09/02/2012 [facility] Systolic (mm Hg) 114 09/02/2012 [facility] Heart Rate 79 09/02/2012 [facility] Respitory Rate 20 09/02/2012 [facility] Height 157.48 cm 09/01/2012 [facility] Weight 84.091 09/01/2012 [facility] Heart Rate 79.0 09/06/2011 [place] Diastolic (mm Hg) 65.0 09/06/2011 [place] Systolic (mm Hg) 106.0 09/06/2011 [place] Temperature Oral (F) 98.1 F 09/06/2011 [facility] [place] Respitory Rate 18.0 09/06/2011 [facility] [place] Systolic (mm Hg) 101.0 09/06/2011 [place] Diastolic (mm Hg) 60.0 09/06/2011 [place] Heart Rate 70.0 09/06/2011 [place] Weight 84.091 09/06/2011 [place] Temperature Oral (F) 98.2 F 09/06/2011 [place] Height 157.48 cm 09/06/2011 [facility] [place] Respitory Rate 18.0 09/06/2011 [facility] [place] Heart Rate 83.0 09/06/2011 [facility] [place] Diastolic (mm Hg) 75.0 09/06/2011 [place] Systolic (mm Hg) 106.0 09/06/2011 [place] Encounters Location Location Encounter Encounter Reason Attending ADM DC Status Source Details Type Number For Provider Date Date Visit Emergency [id number] EDWIN BETHEA 09/06 09/06 Active [facility] [place] 3 PAIN /2010 [facility] [place] [id number] CHEST KIRITKADDIE 09/01 09/02 Active [facility] 7 PAIN [place] [facility] OU [id number] CELESTEKADDIE 09/08 09/10 Active [facility] 4 [place] /2011 [facility] OU [id number] CHAPIN 03/30 03/31 Active [facility] [place] 5 /2012 [facility] [place] [id number] Yecenia Hsu 06/06 06/06 [place] [facility] [place] [facility] [id number] Giao Martinez 06/16 06/21 [facility] [place] [facility] OBS [id number] [place] 10/28 10/30 [facility] [place] Observation 5 Avtar /2014 [facility] [place] [facility] [id number] Aj 11/16 11/19 [facility] 6 Bow[place] /2014 [facility] [place] [facility] [place] [id number] Randy 07/29 07/30 [place] Emergency 7 [place]oberman /2014 [facility] OBS [id number] Connie 09/05 09/06 [facility] [place] Observation 0 [facility] Outpatient [id number] Amir Jethro 01/03 01/04 [place] [facility] Inpatient [id number] Aziz Dheeraj 02/14 02/19 [facility] [place] [facility] Inpatient [id number] Antonio Bowen 03/24 03/28 [facility] Bedded [id number] Andres 08/22 08/22 [facility] [place] Outpatient 0 [place] [facility] Inpatient [id number] Kasia 08/29 08/31 [facility] [place] 3 N[facility] Inpatient [id number] Shaan 09/02 09/05 [facility] [place] 8 [facility] Observation [id number] Azmichelle Dheeraj 09/19 09/21 [facility] Outpatient [id number] Amir Jethro 12/18 12/19 [facility] Outpatient [id number] ANDRES 01/29 Active [facility] 0 [facility] Observation [id number] Connie 04/12 04/14 [facility] 4 [facility] [id number] 10/12 10/[address] [facility] Registered [id number] 11/[address] [facility] Departed [id number] 12/03 12/[address] [facility] Discharged [id number] 12/17 12/[address] [facility] Dis[facility] [id number] [facility] 09/18 [facility] Inpatient 1 MARTI CHAPPELL /2017 a (obs) [facility] Departed [id number] SANGITA 09/24 09/25 [facility] MIKIE CHAPPELL a Room [facility] Departed [id number] ANAMARIA 09/25 09/25 [place] [facility] 9 SHAMAR CHAPPELL a Room [facility] Admitted [id number] [place] 09/27 [facility] Inpatient 2 DAPHNE CHAPPELL a (obs) [facility] Procedures Procedure Code Date Perfomer Comments Source X-ray of chest, [id number] 09/26/20 [place] single view [address] [place] [address] Computed tomography [id number] 09/26/20 JANICE [place] of abdomen and 18 [facility] pelvis with contrast [facility] Computed tomography [id number] 09/24/20 MIKIE [place] of abdomen and 18 [facility] pelvis with contrast [facility] EMERGENCY DEPT VISIT [id number] 09/17/[address] [place] [address] [place] [address] US EXAM ABDOM 62549 09/17/20 [facility] COMPLETE [address] [place] [address] ASSAY OF AMYLASE 79808 09/17/[address] [place] [address] [place] [address] COMPLETE CBC W/AUTO 38801 09/17/20 [place] DIFF WBC [address] [place] [address] ASSAY OF LIPASE 28336 09/17/[address] [place] [address] [place] [address] URINALYSIS AUTO 17737 09/17/20 [place] W/SCOPE [address] [place] [address] ROUTINE VENIPUNCTURE 43636 09/17/[address] [place] [address] [place] [address] COMPREHEN METABOLIC 88198 09/17/20 [facility] PANEL [address] [place] [address] INSERT PICC CATH 57443 09/17/[address] [place] [address] [place] [address] LIPID PANEL 14941 09/17/[address] [place] [address] [place] [address] ASSAY GLUCOSE BLOOD 09415 09/17/20 [facility] QUANT [address] [place] [address] GLYCOSYLATED 69681 09/17/20 [facility] HEMOGLOBIN TEST [address] [place] [address] METABOLIC PANEL 34676 09/17/20 [place] TOTAL CA [address] [place] [address] US GUIDE VASCULAR 68999 09/17/20 [facility] ACCESS [address] [place] [address] IIV4 VACCINE SPLT 29345 09/17/20 [place] 0.5 ML IM [address] [place] [address] ASSAY OF MAGNESIUM 12258 09/17/[address] ASSAY OF PHOSPHORUS 78423 09/17/[address] MORPHINE SULFATE J2270 09/17/20 [facility] INJECTION [address] [place] [address] INFLUENZA VACCINE G0008 09/17/20 [place] ADMIN [address] [place] [address] Abdominal ultrasound [id number] 09/16/[address] Head Brain Wo Cont [id number] 12/17/[address] [facility] Chest Single View [id number] 12/17/[address] [facility] Abdomen & Pelvis W [id number] 12/03/[address] [facility] [id number] 10/12/[address] [facility] [place] Count [id number] 10/12/[address] [facility] Abdomen & Pelvis W [id number] 10/12/[address] [facility] Appendectomy [id number] [facility] Diskectomy [id number] [facility] Fusion of [id number] [facility] cervicothoracic joint by posterior approach Gallbladder [id number] [facility] operation Hysterectomy [id number] [facility] Appendectomy [id number] [facility] Diskectomy [id number] [facility] Fusion of [id number] [facility] joint by posterior approach Gallbladder [id number] [facility] Hysterectomy [id number] [facility] Appendectomy [id number] [place] Diskectomy [id number] [place] Gallbladder [id number] [place] operation Hysterectomy [id number] [place] Brain 764012 brain [facility] excision<sup>1</sup> surgery to repain nerve Appendectomy [id number] [facility] Brain 177037 brain Ortho and excision<sup>1</sup> surgery to Spine repain nerve Cataract extraction [id number] [facility] Diskectomy 4477702 [facility] Fusion of [id number] [facility] cervicothoracic Spine joint by posterior approach Gallbladder [id number] [facility] Spine Hysterectomy [id number] [facility] Appendectomy [id number] [place] Brain 647456 brain [place] excision<sup>1</sup> surgery to repain nerve Diskectomy 6992294 [place] Fusion of [id number] [place] cervicothoracic joint by posterior approach Gallbladder [id number] [place] operation Hysterectomy [id number] [place] Cataract extraction [id number] [facility]
[2018-10-23] MEDS ORDERED: PROMETHAZINE 25 MG/ML VIAL ONE (12:12)
[2018-10-23] MEDS ORDERED: LORazepam 2 MG/ML VIAL ONE (12:12)
--- OUTSIDE RECORDS SUMMARY | 2018-10-23 12:13 | XMS REPORT | CCD ---
:1960 Author Organization [facility] Team Providers Name Role Phone PCP, Not listed in HQ Consulting Provider Unavailable Anitha Herrmann Consulting Provider Unavailable Homer Roman Consulting Provider Kimberly, Melba Consulting Provider [phone] Valerie Pérez Consulting Provider Unavailable Oriana Cary Consulting Provider Unavailable Juliane Jin Consulting Provider ChartServer, Login Consulting Provider Unavailable Sarah Larsen Consulting Provider Dread Stein III Primary Care Provider Tea Pagan Consulting Provider Unavailable Megan Bey Consulting Provider Unavailable Grace Valenzuela Consulting Provider [phone] Jeanie Lance Consulting Provider XCCari Jalloh Consulting Provider [phone] SYSTEM, SYSTEM Consulting Provider Unavailable Hardik Cary Consulting Provider Maria Olsen Consulting Provider Kassy Loaiza Consulting Provider Unavailable Allergies, Adverse Reactions, Alerts Substance Reaction Status Benadryl ?? Active Ecotrin ?? Canceled Kenalog Kenalog?? Active levabid ?? Active Talwin ?? Active Medications Medication Instructions Start Date End Date Status Combivent inhalation Substitution Allowed, 09/06/2011 ?? Ordered aerosol with adapter Maintenance Dulera 100 mcg-5 mcg/inh Substitution Allowed, 09/06/2011 ?? Ordered inhalation aerosol Maintenance Vitamin B12 Substitution Allowed 09/06/2011 ?? Ordered Singulair Substitution Allowed 09/06/2011 ?? Ordered topiramate Substitution Allowed 09/06/2011 ?? Ordered Zofran ODT 4 mg oral 4 mg, 1 tab, PO, Q6H, 10 tab, Substitution Allowed, Dissolve tab under tongue 09/06/2011 ?? Ordered tablet, disintegrating Dissolve tab under tongue omeprazole Substitution Allowed 09/06/2011 ?? Ordered losartan Substitution Allowed 09/06/2011 ?? Ordered Euless 10/325 oral tablet 1-2 tab, PO, Q6H, PRN, 09/06/2011 09/11/2011 Ordered 30 tab, Pain, Substitution Allowed, Maintenance Reglan Substitution Allowed 09/06/2011 ?? Ordered hydrOXYzine Substitution Allowed 09/06/2011 ?? Ordered Saline Flush 0.9% 5 ml, Route: IVP, Drug 09/06/2011 09/06/2011 Discontinued Form: INJ, PRN, PRN Line Flush, Start date: 09/06/11 12:11:00, Duration: 30 day, Stop date: 10/06/11 12:10:00 hydromorphone 1 mg, 0.5 mL, Route: 09/06/2011 09/06/2011 Completed IVP, Drug form: INJ, ONCE, Priority: STAT, Start date: 09/06/11 12:11:00, Stop date: 09/06/11 12:11:00 ondansetron 4 mg, 2 mL, Route: IVP, 09/06/2011 09/06/2011 Completed Drug form: INJ, ONCE, Priority: STAT, Start date: 09/06/11 12:11:00, Stop date: 09/06/11 12:11:00 ALPRAZOLam Substitution Allowed 09/06/2011 ?? Ordered metoprolol Substitution Allowed 09/06/2011 ?? Ordered sucralfate Substitution Allowed 09/06/2011 ?? Ordered ranitidine Substitution Allowed 09/06/2011 ?? Ordered Creon Substitution Allowed 09/06/2011 ?? Ordered Omnipaque 300 30,000 mg, 100 mL, 09/06/2011 09/06/2011 Completed Route: IV, Drug form: SOLN, ONCE, Start date: 09/06/11 13:42:00, Stop date: 09/06/11 13:42:00 hydromorphone 1 mg, 0.5 mL, Route: 09/06/2011 09/06/2011 Completed IVP, Drug form: INJ, ONCE, Priority: STAT, Start date: 09/06/11 15:23:00, Stop date: 09/06/11 15:23:00 ondansetron 4 mg, Route: IVP, Drug 09/06/2011 09/06/2011 Completed form: INJ, ONCE, Priority: STAT, Start date: 09/06/11 15:32:00, Stop date: 09/06/11 15:32:00 Vital Signs Most recent to oldest 1 2 3 [Reference Range]: Height 157.48 cm ? (09/06/2011 11:40:00) ?? Temperature Oral 98.1 DegF 98.2 DegF ?? [96.4-99.1 DegF] (09/06/2011 16:06:00) ?? (09/06/2011 11:40:00) ?? Systolic Blood Pressure 106 mmHg 101 mmHg 106 mmHg [90-140 mmHg] (09/06/2011 16:06:00) ?? (09/06/2011 15:10:00) ?? (09/06/2011 11:40:00) ?? Diastolic Blood Pressure 65 mmHg 60 mmHg 75 mmHg [60-90 mmHg] (09/06/2011 16:06:00) ?? (09/06/2011 15:10:00) ?? (09/06/2011 11:40:00) ?? Respiratory Rate [14-20 18 BRMIN 18 BRMIN ?? BRMIN] (09/06/2011 16:06:00) ?? (09/06/2011 11:40:00) ?? Peripheral Pulse Rate 79 bpm 70 bpm 83 bpm [60-100 bpm] (09/06/2011 16:06:00) ?? (09/06/2011 15:10:00) ?? (09/06/2011 11:40:00) ?? Weight 84.091 kg ? (09/06/2011 11:40:00) ?? Results URINALYSIS Most recent to oldest [Reference Range]: 1 UA Turbidity [>Clear] Clear (09/06/2011 12:40:00) ?? UA Color [>Yellow] Yellow *NA* (09/06/2011 12:40:00) ?? UA pH [5.0-8.0] 7.0 (09/06/2011 12:40:00) ?? UA Spec Grav [<<=1.030] <=1.005 *NA* (09/06/2011 12:40:00) ?? UA Glucose [>Negative] Negative (09/06/2011 12:40:00) ?? UA Blood [>Negative] Negative (09/06/2011 12:40:00) ?? UA Ketones [>Negative] Negative *NA* (09/06/2011 12:40:00) ?? UA Protein [>Negative] Negative (09/06/2011 12:40:00) ?? UA Urobilinogen [0.1-1.0 EU/dL] 0.2 EU/dL (09/06/2011 12:40:00) ?? UA Bili [>Negative] Negative *NA* (09/06/2011 12:40:00) ?? UA Leuk Est [>Negative] Negative (09/06/2011 12:40:00) ?? UA Nitrite [>Negative] Negative (09/06/2011 12:40:00) ?? UA WBC [>None Seen /HPF] 0-2 /HPF (09/06/2011 12:40:00) ?? UA RBC [>0-2 /HPF] 0-2 /HPF (09/06/2011 12:40:00) ?? UA Bacteria [>None Seen] None Seen (09/06/2011 12:40:00) ?? UA Sq Epi [>Few /LPF] Moderate /LPF *ABN* (09/06/2011 12:40:00) ?? Micro? Performed (09/06/2011 12:40:00) ?? CHEMISTRY Most recent to oldest [Reference Range]: 1 Sodium Lvl [135-145 mEq/L] 138 mEq/L (09/06/2011 13:00:00) ?? Potassium Lvl [3.5-5.1 mEq/L] 4.4 mEq/L (09/06/2011 13:00:00) ?? Chloride Lvl [95-109 mEq/L] 103 mEq/L (09/06/2011 13:00:00) ?? CO2 [24-32 mEq/L] 23 mEq/L *LOW* (09/06/2011 13:00:00) ?? AGAP [10.0-20.0 mEq/L] 16.4 mEq/L (09/06/2011 13:00:00) ?? Creatinine Lvl [0.5-1.4 mg/dL] 0.9 mg/dL (09/06/2011 13:00:00) ?? BUN [7-22 mg/dL] 11 mg/dL (09/06/2011 13:00:00) ?? B/C Ratio [6-25] 12 (09/06/2011 13:00:00) ?? Glucose Lvl 107 mg/dL 1 *NA* (09/06/2011 13:00:00) ?? Total Protein [6.4-8.4 g/dL] 8.8 g/dL *HI* (09/06/2011 13:00:00) ?? Albumin Lvl [3.5-5.0 g/dL] 3.6 g/dL (09/06/2011 13:00:00) ?? Globulin [2.0-4.0 g/dL] 5.2 g/dL *HI* (09/06/2011 13:00:00) ?? A/G Ratio [0.7-1.6] 0.7 (09/06/2011 13:00:00) ?? Calcium Lvl [8.5-10.5 mg/dL] 9.4 mg/dL (09/06/2011 13:00:00) ?? ALT [0-65 U/L] 21 U/L (09/06/2011 13:00:00) ?? AST [0-37 U/L] 13 U/L (09/06/2011 13:00:00) ?? Alk Phos [39-136 U/L] 111 U/L (09/06/2011 13:00:00) ?? Bili Total [0.2-1.3 mg/dL] 0.4 mg/dL (09/06/2011 13:00:00) ?? Amylase Lvl [25-115 U/L] 97 U/L (09/06/2011 13:00:00) ?? Lipase Lvl [73-393 U/L] 255 U/L (09/06/2011 13:00:00) ?? 1Interpretive Data: Reference Ranges : 0 - 7 days : 41 - 90 mg/dL7 days - 150 yrs : 70 - 99 mg/dL (fasting), based on the clinical recommendations of the [place] [employer].HEMATOLOGY Most recent to oldest [Reference Range]: 1 WBC [3.7-10.4 K/CMM] 12.6 K/CMM *HI* (09/06/2011 12:40:00) ?? RBC [4.20-5.40 M/CMM] 4.62 M/CMM (09/06/2011 12:40:00) ?? Hgb [12.0-16.0 g/dL] 12.0 g/dL (09/06/2011 12:40:00) ?? Hct [36.0-48.0 %] 36.3 % (09/06/2011 12:40:00) ?? MCV [81.0-99.0 fL] 78.5 fL *LOW* (09/06/2011 12:40:00) ?? MCH [27.0-31.0 pg] 25.9 pg *LOW* (09/06/2011 12:40:00) ?? MCHC [32.0-36.0 g/dL] 33.0 g/dL (09/06/2011 12:40:00) ?? RDW [11.5-14.5 %] 15.4 % *HI* (09/06/2011 12:40:00) ?? Platelet [133-450 K/CMM] 112 K/CMM *LOW* (09/06/2011 12:40:00) ?? MPV [7.4-10.4 fL] 9.2 fL (09/06/2011 12:40:00) ?? Segs [45.0-75.0 %] 59.9 % (09/06/2011 12:40:00) ?? Lymphocytes [20.0-40.0 %] 32.0 % (09/06/2011 12:40:00) ?? Monocytes [2.0-12.0 %] 7.2 % (09/06/2011 12:40:00) ?? Eosinophils [0.0-4.0 %] 0.3 % (09/06/2011 12:40:00) ?? Basophils [0.0-1.0 %] 0.6 % (09/06/2011 12:40:00) ?? Segs-Bands # [1.5-8.1 K/CMM] 7.6 K/CMM (09/06/2011 12:40:00) ?? Lymphocytes # [1.0-5.5 K/CMM] 4.0 K/CMM (09/06/2011 12:40:00) ?? Monocytes # [0.0-0.8 K/CMM] 0.9 K/CMM *HI* (09/06/2011 12:40:00) ?? Eosinophils # [0.0-0.5 K/CMM] 0.0 K/CMM (09/06/2011 12:40:00) ?? Basophils # [0.0-0.2 K/CMM] 0.1 K/CMM (09/06/2011 12:40:00) ??
--- OUTSIDE RECORDS SUMMARY | 2018-10-23 12:14 | XMS REPORT | CCD ---
:1960 Author Organization [facility] Care Team Providers Name Role Phone Emil LEIGH Dread Triplett Primary Care Provider Chapin Nova Consulting Provider Allergies, Adverse Reactions, Alerts Substance Reaction Status Benadryl hives Active Kenalog Kenalog Active levabid hives Active Talwin unfunctional Active Problem List Condition Effective Dates Status Anxiety 09/07/2012 Active ASTHMA Resolved Asthma Active Chest pain 09/01/2012 Active Gastritis Resolved GERD - Gastro-esophageal reflux disease Active Heartburn Resolved HTN - Hypertension Active Hypertension Resolved Mitral valve prolapse Resolved Pancreatitis Resolved Medications Medication Instructions Start Date End Date Status Creon 12,000 units oral 2 cap, Route: PO, Drug 03/30/2013 03/31/2013 Discontinued delayed release capsule Form: DRC, Dosing Weight 84.091, kg, TID-Meals, NOW, Start date: 03/30/13 23:06:00, Stop date: 04/29/13 17:00:00 Antivert 25 mg, 1 tab, Route: PO, 03/31/2013 03/31/2013 Discontinued Drug form: TAB, TID, Dosing Weight 84.091, kg, PRN as needed for dizziness, Start date: 03/31/13 14:13:00, Duration: 30 day, Stop date: 04/30/13 14:12:00 Klor-Con 10 oral tablet, 10 mEq, 1 tab, PO, 03/30/2013 Ordered extended release Daily, Substitution Allowed, ERTAB potassium chloride 40 mEq, 30 mL, Route: 03/31/2013 03/31/2013 Completed PO, Drug form: LIQ, ONCE, Dosing Weight 84.091, kg, Start date: 03/31/13 15:00:00, Stop date: 03/31/13 15:00:00 Dexilant 60 mg oral 60 mg, 1 cap, PO, Daily, 03/30/2013 Ordered delayed release capsule Substitution Allowed hydrOXYzine hydrochloride 25 mg, 1 tab, Route: PO, 03/30/2013 03/31/2013 Discontinued 25 mg oral tablet Drug form: TAB, TID, Dosing Weight 84.091, kg, PRN as needed for itching, Start date: 03/30/13 21:56:00, Duration: 30 day, Stop date: 04/29/13 21:55:00 meclizine 12.5 mg oral 12.5 mg, 1 tab, PO, TID, 03/30/2013 Ordered tablet PRN, 60 tab, for dizziness, Substitution Allowed, TAB Dulera inhaler 200mcg/5mcg Dulera inhaler 03/31/2013 03/31/2013 Discontinued "pt's own med." 200mcg/5mcg "pt's own med.", 2 puff, Drug form: MISC, Route: INHALATION, BID, 03/31/13 9:00:00, Duration: 30 day, Stop date: 04/29/13 17:00:00 Combivent inhaler "pt's Combivent inhaler "pt's 03/30/2013 03/31/2013 Discontinued own med." own med.", 2 puff, Drug form: MISC, Route: INHALATION, RQID, PRN Wheezing, 03/30/13 23:38:00, Duration: 30 day, Stop date: 04/29/13 23:37:00 Dulera 200 mcg-5 mcg/inh 2 puff, Route: 03/31/2013 03/30/2013 Deleted inhalation aerosol INHALATION, Drug Form: AERO, Dosing Weight 84.091, kg, BID, Start date: 03/31/13 9:00:00, Duration: 30 day, Stop date: 04/29/13 17:00:00 estradiol 2 mg, 2 tab, Route: PO, 03/31/2013 03/31/2013 Discontinued Drug form: TAB, Daily, Dosing Weight 84.091, kg, Start date: 03/31/13 9:00:00, Duration: 30 day, Stop date: 04/29/13 9:00:00 Dexilant 60 mg, Route: PO, Drug 03/31/2013 03/31/2013 Deleted form: DRC, Daily, Dosing Weight 84.091, kg, Start date: 03/31/13 9:00:00, Duration: 30 day, Stop date: 04/29/13 9:00:00 albuterol 0.083% 2.49 mg, 3 mL, Route: 03/31/2013 03/31/2013 Discontinued inhalation solution NEB, Drug form: SOLN, RQ6H, Dosing Weight 84.091, kg, Start date: 03/31/13 2:00:00, Duration: 30 day, Stop date: 04/29/13 20:00:00 ALPRAZOLam 0.125 mg, Route: PO, 03/31/2013 03/30/2013 Deleted Drug form: TABDIS, BID, Dosing Weight 84.091, kg, Start date: 03/31/13 9:00:00, Duration: 30 day, Stop date: 04/29/13 17:00:00 Combivent inhalation 2 puff, Route: INHALER, 03/30/2013 03/30/2013 Deleted aerosol with adapter Drug Form: AERO/A, Dosing Weight 84.091, kg, QID, PRN Shortness of breath, Start date: 03/30/13 21:54:00, Duration: 30 day, Stop date: 04/29/13 21:53:00 Tylenol 650 mg, 2 tab, Route: 03/30/2013 03/31/2013 Discontinued PO, Drug form: TAB, Q4H, Dosing Weight 84.091, kg, PRN as needed for fever, Start date: 03/30/13 22:04:00, Duration: 30 day, Stop date: 04/29/13 22:03:00 [place] 10/325 oral tablet 1 tab, Route: PO, Drug 03/30/2013 03/31/2013 Discontinued Form: TAB, Dosing Weight 84.091, kg, Q6H, PRN For Pain, Start date: 03/30/13 21:54:00, Duration: 30 day, Stop date: 04/29/13 21:53:00 Zofran 4 mg, 2 mL, Route: IV, 03/30/2013 03/31/2013 Discontinued Drug form: INJ, Q4H, Dosing Weight 84.091, kg, PRN as needed for nausea/vomiting, Start date: 03/30/13 22:04:00, Duration: 30 day, Stop date: 04/29/13 22:03:00 Saline Flush 0.9% 5 ml, Route: IVP, Drug 03/30/2013 03/30/2013 Discontinued Form: INJ, Dosing Weight 84.091, kg, PRN, PRN Line Flush, Start date: 03/30/13 16:26:00, Duration: 30 day, Stop date: 04/29/13 16:25:00 morphine Sulfate 4 mg, Route: IVP, ONCE, 03/30/2013 03/30/2013 Completed Dosing Weight 84.091, kg, Priority: STAT, Start date: 03/30/13 18:28:00, Stop date: 03/30/13 18:28:00 ondansetron 4 mg, Route: IVP, ONCE, 03/30/2013 03/30/2013 Completed Dosing Weight 84.091, kg, Priority: STAT, Start date: 03/30/13 17:11:00, Stop date: 03/30/13 17:11:00 morphine Sulfate 4 mg, Route: IVP, ONCE, 03/30/2013 03/30/2013 Completed Dosing Weight 84.091, kg, Priority: STAT, Start date: 03/30/13 17:11:00, Stop date: 03/30/13 17:11:00 Protonix 40 mg, 1 tab, Route: PO, 03/31/2013 03/31/2013 Discontinued Drug form: ECTAB, Daily, Start date: 03/31/13 10:00:00, Duration: 30 day, Stop date: 04/30/13 9:00:00 meclizine 25 mg, 1 tab, Route: PO, 03/30/2013 03/31/2013 Discontinued Drug form: TAB, TID, Dosing Weight 84.091, kg, Start date: 03/30/13 22:30:00, Duration: 30 day, Stop date: 04/29/13 17:00:00 Imitrex 50 mg, 2 tab, Route: PO, 03/31/2013 03/31/2013 Discontinued Drug form: TAB, Daily, Dosing Weight 84.091, kg, PRN Headache, Start date: 03/31/13 9:24:00, Duration: 9 doses or times, Stop date: Limited # of times Xanax 0.125 mg, 0.5 tab, 03/31/2013 03/31/2013 Discontinued Route: PO, Drug form: TAB, BID, Start date: 03/31/13 9:00:00, Duration: 30 day, Stop date: 04/29/13 17:00:00 aspirin 325 mg tablet 325 mg, Route: PO, Drug 03/30/2013 03/30/2013 Completed form: TAB, ONCE, Dosing Weight 84.091, kg, Priority: STAT, Start date: 03/30/13 18:25:00, Stop date: 03/30/13 18:25:00 morphine Sulfate 2 mg, 1 mL, Route: IVP, 03/31/2013 03/31/2013 Completed Drug form: INJ, ONCE, Dosing Weight 84.091, kg, Start date: 03/31/13 14:12:00, Stop date: 03/31/13 14:12:00 sucralfate 1 gm, 1 tab, Route: PO, 03/31/2013 03/31/2013 Discontinued Drug form: TAB, QID-Before Meals, Dosing Weight 84.091, kg, Start date: 03/31/13 7:30:00, Duration: 30 day, Stop date: 04/29/13 21:00:00 morphine Sulfate 2 mg, 1 mL, Route: IVP, 03/31/2013 03/31/2013 Completed Drug form: INJ, ONCE, Dosing Weight 84.091, kg, Start date: 03/31/13 14:12:00, Stop date: 03/31/13 14:12:00 Klor-Con 10 10 mEq, 1 tab, Route: 03/31/2013 03/31/2013 Discontinued PO, Drug form: ERTAB, Daily, Dosing Weight 84.091, kg, Start date: 03/31/13 9:00:00, Duration: 30 day, Stop date: 04/29/13 9:00:00 Creon 24,000 units oral 1 cap, Route: PO, Drug 03/31/2013 03/30/2013 Canceled delayed release capsule Form: CAP, Dosing Weight 84.091, kg, TID, Start date: 03/31/13 9:00:00, Duration: 30 day, Stop date: 04/29/13 17:00:00 Singulair 10 mg, 1 tab, Route: PO, 03/31/2013 03/31/2013 Discontinued Drug form: TAB, QPM, Dosing Weight 84.091, kg, Start date: 03/31/13 17:00:00, Duration: 30 day, Stop date: 04/29/13 17:00:00 metoclopramide 10 mg oral 10 mg, 1 tab, Route: PO, 03/30/2013 03/31/2013 Discontinued tablet Drug form: TAB, Q6H, Dosing Weight 84.091, kg, PRN Nausea, Start date: 03/30/13 21:57:00, Duration: 30 day, Stop date: 04/29/13 21:56:00 losartan 100 mg, 2 tab, Route: 03/31/2013 03/31/2013 Discontinued PO, Drug form: TAB, QAM, Dosing Weight 84.091, kg, Start date: 03/31/13 9:00:00, Duration: 30 day, Stop date: 04/29/13 9:00:00 LORAzepam 1 mg, 2 tab, Route: PO, 03/30/2013 03/31/2013 Completed Drug form: TAB, ONCE, Dosing Weight 84.091, kg, Priority: STAT, Start date: 03/30/13 20:12:00, Stop date: 03/30/13 20:12:00 tramadol 50 mg oral tablet 50 mg, 1 tab, PO, Q4H, 03/31/2013 Ordered PRN, 30 tab, as needed for pain, Substitution Allowed, TAB Saline Flush 0.9% 5 ml, Route: IVP, Drug 03/30/2013 03/31/2013 Discontinued Form: INJ, Dosing Weight 84.091, kg, PRN, PRN Line Flush, Start date: 03/30/13 20:12:00, Duration: 30 day, Stop date: 04/29/13 20:11:00 Saline Flush 0.9% 5 ml, Route: IVP, Drug 03/30/2013 03/31/2013 Discontinued Form: INJ, Dosing Weight 84.091, kg, Q12H, Start date: 03/30/13 21:00:00, Duration: 30 day, Stop date: 04/29/13 9:00:00 aspirin 325 mg tablet, 325 mg, 1 tab, Route: 03/31/2013 03/31/2013 Discontinued enteric coated PO, Drug form: ECTAB, Daily, Dosing Weight 84.091, kg, Start date: 03/31/13 9:00:00, Duration: 30 day, Stop date: 04/29/13 9:00:00 tramadol 50 mg oral tablet 50 mg, 1 tab, Route: PO, 03/31/2013 03/31/2013 Discontinued Drug form: TAB, Q4H, Dosing Weight 84.091, kg, PRN as needed for pain, Start date: 03/31/13 14:13:00, Duration: 30 day, Stop date: 04/30/13 14:12:00 ondansetron 4 mg, Route: IVP, ONCE, 03/30/2013 03/30/2013 Completed Dosing Weight 84.091, kg, Priority: STAT, Start date: 03/30/13 18:44:00, Stop date: 03/30/13 18:44:00 Vital Signs Most recent to oldest 1 2 3 [Reference Range]: Height 157.48 cm 157.48 cm (03/30/2013 20:45:00) (03/30/2013 16:06:00) Temperature Oral 98.4 DegF 98.2 DegF 98.3 DegF [96.4-99.1 DegF] (03/31/2013 15:44:00) (03/31/2013 10:35:00) (03/31/2013 07: 16:00) Systolic Blood Pressure 116 mmHg 96 mmHg 112 mmHg [90-140 mmHg] (03/31/2013 15:44:00) (03/31/2013 10:35:00) (03/31/2013 07:16: 00) Diastolic Blood Pressure 68 mmHg 52 mmHg 70 mmHg [60-90 mmHg] (03/31/2013 15:44:00) *LOW* (03/31/2013 07:16:00) (03/31/2013 10:35:00) Respiratory Rate [14-20 18 BRMIN 18 BRMIN 18 BRMIN BRMIN] (03/31/2013 15:44:00) (03/31/2013 10:35:00) (03/31/2013 07:16:00) Peripheral Pulse Rate 83 bpm 79 bpm 81 bpm [60-100 bpm] (03/31/2013 15:44:00) (03/31/2013 10:35:00) (03/31/2013 07:16: 00) Weight 84.091 kg 84.091 kg (03/30/2013 20:45:00) (03/30/2013 16:06:00) Results BEDSIDE GLUCOSE TESTING Most recent to oldest [Reference Range]: 1 2 Gluc POC [place] [70-99 mg/dL] 123 mg/dL 1 *HI* (03/30/2013 21:18:00) Comment1 Notify RN/MD *NA* (03/30/2013 21:18:00) 1Interpretive Data: Upper Reportable Limit: 200 mg/dL.URINALYSIS Most recent to oldest [Reference Range]: 1 2 UA Turbidity [Clear] Clear (03/31/2013 14:40:37) UA Color [Yellow] Yellow *NA* (03/31/2013 14:40:37) UA pH [5.0-8.0] 7.0 (03/31/2013 14:40:37) UA Spec Grav [<=1.030] <=1.005 *NA* (03/31/2013 14:40:37) UA Glucose [Negative] Negative (03/31/2013 14:40:37) UA Blood [Negative] Negative (03/31/2013 14:40:37) UA Ketones [Negative] Negative *NA* (03/31/2013 14:40:37) UA Protein [Negative] Negative (03/31/2013 14:40:37) UA Urobilinogen [0.1-1.0 EU/dL] 0.2 EU/dL (03/31/2013 14:40:37) UA Bili [Negative] Negative *NA* (03/31/2013 14:40:37) UA Leuk Est [Negative] Negative (03/31/2013 14:40:37) UA Nitrite [Negative] Negative (03/31/2013 14:40:37) UA WBC [None Seen /HPF] 0-2 /HPF (03/31/2013 14:40:37) UA RBC [0-2 /HPF] 0-2 /HPF (03/31/2013 14:40:37) UA Bacteria [None Seen] None Seen (03/31/2013 14:40:37) UA Sq Epi [Few /LPF] Occasional /LPF (03/31/2013 14:40:37) Micro? Performed (03/31/2013 14:40:37) CHEMISTRY Most recent to oldest [Reference 1 2 Range]: Sodium Lvl [135-145 mEq/L] 142 mEq/L 143 mEq/L (03/31/2013 05:05:00) (03/30/2013 17:03:00) Potassium Lvl [3.5-5.1 mEq/L] 3.3 mEq/L 3.7 mEq/L *LOW* (03/30/2013 17:03:00) (03/31/2013 05:05:00) Chloride Lvl [95-109 mEq/L] 107 mEq/L 109 mEq/L (03/31/2013 05:05:00) (03/30/2013 17:03:00) CO2 [24-32 mEq/L] 27 mEq/L 24 mEq/L (03/31/2013 05:05:00) (03/30/2013 17:03:00) AGAP [10.0-20.0 mEq/L] 11.3 mEq/L 13.7 mEq/L (03/31/2013 05:05:00) (03/30/2013 17:03:00) Creatinine Lvl [0.5-1.4 mg/dL] 1.0 mg/dL 1.0 mg/dL (03/31/2013 05:05:00) (03/30/2013 17:03:00) eGFR 75 mL/min/1.73m2 2 75 mL/min/1.73m2 3 *NA* *NA* (03/31/2013 05:05:00) (03/30/2013 17:03:00) BUN [7-22 mg/dL] 6 mg/dL 5 mg/dL *LOW* *LOW* (03/31/2013 05:05:00) (03/30/2013 17:03:00) B/C Ratio [6-25] 5 *LOW* (03/30/2013 17:03:00) Glucose Lvl [70-99 mg/dL] 121 mg/dL 4 83 mg/dL 5 *HI* (03/30/2013 17:03:00) (03/31/2013 05:05:00) Total Protein [6.4-8.4 g/dL] 7.0 g/dL (03/30/2013:03:00) Albumin Lvl [3.5-5.0 g/dL] 3.3 g/dL *LOW* (03/30/2013:03:00) Globulin [2.0-4.0 g/dL] 3.7 g/dL (03/30/2013:03:00) A/G Ratio [0.7-1.6] 0.9 (03/30/2013:03:00) Calcium Lvl [8.5-10.5 mg/dL] 8.0 mg/dL 8.2 mg/dL *LOW* *LOW* (03/31/2013 05:05:00) (03/30/2013:03:00) ALT [0-65 unit/L] 16 unit/L (03/30/2013:03:00) AST [0-37 unit/L] 17 unit/L (03/30/2013:03:00) Alk Phos [39-136 unit/L] 119 unit/L (03/30/2013:03:00) Bili Total [0.2-1.3 mg/dL] 0.2 mg/dL (03/30/2013:03:00) Total CK [12-191 unit/L] 153 unit/L (03/30/2013:03:00) CK MB [0.5-3.6 ng/mL] <0.5 ng/mL (03/30/2013:03:00) CK MB Index [0.0-2.5] <0.3 (03/30/2013:03:00) Troponin-I [0.00-0.40 ng/mL] <0.02 ng/mL (03/30/2013:03:00) CHD Risk [3.90-5.80] 2.21 *LOW* (03/31/2013 05:05:00) Chol [<=199 mg/dL] 135 mg/dL 6 (03/31/2013 05:05:00) Trig [<=149 mg/dL] 105 mg/dL 7 (03/31/2013 05:05:00) HDL [>=61 mg/dL] 61 mg/dL 8 (03/31/2013 05:05:00) LDL [<=99 mg/dL] 53 mg/dL 9 (03/31/2013 05:05:00) Hgb A1C [<=5.6 %] 5.9 % 10 *HI* (03/31/2013 05:05:00) T4 Free [0.76-1.46 ng/dL] 1.11 ng/dL (03/31/2013 05:05:00) TSH [0.360-3.740 uIU/mL] 0.352 uIU/mL *LOW* (03/31/2013 05:05:00) 2Result Comment: The eGFR is calculated using the CKD-EPI formula. In most young , healthy individualsthe eGFR will be >90 mL/min/1.73m2. The eGFR declines with age. An eGFR of 60-89 may be normal in some populations, particularly the elderly, for whom the CKD-EPI formula has not been extensively validated. Use of the eGFR is not recommended in the following populations: Individuals with unstable creatinine concentrations, including patients and those with serious co-morbid conditions. Patients with extremes in muscle mass or diet. The data above are obtained from the National Kidney Disease Education Program ( NKDEP) which additionally recommends that when the eGFR is used in patients with extremes of body mass index for purposesof drug dosing, the eGFR should be multiplied by the estimated BMI.3Result Comment: The eGFR is calculated using the CKD-EPI formula. In most young, healthy individualsthe eGFR will be >90 mL/ min/1.73m2. The eGFR declines with age. An eGFR of 60-89 may be normal in some populations, particularly the elderly, for whom the CKD-EPI formula has not been extensively validated. Use of the eGFR is not recommended in the following populations: Individuals with unstable creatinine concentrations, including patients and those with serious co-morbid conditions. Patients with extremes in muscle mass or diet. The data above are obtained from the National Kidney Disease Education Program ( NKDEP) which additionally recommends that when the eGFR is used in patients with extremes of body mass index for purposesof drug dosing, the eGFR should be multiplied by the estimated BMI.4Interpretive Data: Adult reference range values reflect the clinical guidelines of the [place] [employer].5Interpretive Data: Adult reference range values reflect the clinical guidelines of the [place] [employer].6Interpretive Data: Reference ranges are based on the clinical guidelines of the [employer] National Cholesterol Education Program (ATP III, 2001).7Interpretive Data: Reference ranges are based on the clinical guidelines of the [employer] National Cholesterol Education Program (ATP III , 2001).8Interpretive Data: Reference ranges are based on the clinical guidelines of the [employer] National Cholesterol Education Program (ATP III, 2001) .9Interpretive Data: Reference ranges are based on the clinical guidelines of the [employer] National Cholesterol Education Program (ATP III, 2001).10Interpretive Data: The reference range is based on the clinical practice guidelines of the [place] [employer] for diabetes screening; levels of 5.7%-6.4% are indicative of pre-diabetes.HEMATOLOGY Most recent to oldest [Reference 1 2 Range]: WBC [3.7-10.4 K/CMM] 11.5 K/CMM 14.5 K/CMM *HI* *HI* (03/31/2013 05:05:00) (03/30/2013 17:03:00) RBC [4.20-5.40 M/CMM] 3.91 M/CMM 4.04 M/CMM *LOW* *LOW* (03/31/2013 05:05:00) (03/30/2013 17:03:00) Hgb [12.0-16.0 g/dL] 9.1 g/dL 9.4 g/dL *LOW* *LOW* (03/31/2013 05:05:00) (03/30/2013 17:03:00) Hct [36.0-48.0 %] 30.2 % 30.6 % *LOW* *LOW* (03/31/2013 05:05:00) (03/30/2013 17:03:00) MCV [81.0-99.0 fL] 77.2 fL 75.8 fL *LOW* *LOW* (03/31/2013 05:05:00) (03/30/2013 17:03:00) MCH [27.0-31.0 pg] 23.2 pg 23.3 pg *LOW* *LOW* (03/31/2013 05:05:00) (03/30/2013 17:03:00) MCHC [32.0-36.0 g/dL] 30.1 g/dL 30.8 g/dL *LOW* *LOW* (03/31/2013 05:05:00) (03/30/2013 17:03:00) RDW [11.5-14.5 %] 15.7 % 16.2 % *HI* *HI* (03/31/2013 05:05:00) (03/30/2013 17:03:00) Platelet [133-450 K/CMM] 299 K/CMM 314 K/CMM (03/31/2013 05:05:00) (03/30/2013 17:03:00) MPV [7.4-10.4 fL] 8.3 fL 8.5 fL (03/31/2013 05:05:00) (03/30/2013 17:03:00) Segs [45.0-75.0 %] 49.5 % 54.9 % (03/31/2013 05:05:00) (03/30/2013 17:03:00) Lymphocytes [20.0-40.0 %] 37.7 % 36.2 % (03/31/2013 05:05:00) (03/30/2013 17:03:00) Monocytes [2.0-12.0 %] 10.0 % 6.9 % (03/31/2013 05:05:00) (03/30/2013 17:03:00) Eosinophils [0.0-4.0 %] 2.2 % 1.3 % (03/31/2013 05:05:00) (03/30/2013 17:03:00) Basophils [0.0-1.0 %] 0.6 % 0.7 % (03/31/2013 05:05:00) (03/30/2013 17:03:00) Segs-Bands # [1.5-8.1 K/CMM] 5.7 K/CMM 7.9 K/CMM (03/31/2013 05:05:00) (03/30/2013 17:03:00) Lymphocytes # [1.0-5.5 K/CMM] 4.3 K/CMM 5.2 K/CMM (03/31/2013 05:05:00) (03/30/2013 17:03:00) Monocytes # [0.0-0.8 K/CMM] 1.1 K/CMM 1.0 K/CMM *HI* *HI* (03/31/2013 05:05:00) (03/30/2013 17:03:00) Eosinophils # [0.0-0.5 K/CMM] 0.2 K/CMM 0.2 K/CMM (03/31/2013 05:05:00) (03/30/2013 17:03:00) Basophils # [0.0-0.2 K/CMM] 0.1 K/CMM 0.1 K/CMM (03/31/2013 05:05:00) (03/30/2013 17:03:00) Hypochrom [None Seen] Slight (03/30/2013 17:03:00) Microcyte [None Seen] 1+ *ABN* (03/30/2013 17:03:00) Large Plt [None Seen] Slight *ABN* (03/30/2013 17:03:00) Sed Rate [0-20 mm/hr] 14 mm/hr (03/31/2013 05:05:00) PT [12.0-14.7 seconds] 13.5 seconds (03/30/2013 17:03:00) INR [0.85-1.17] 1.01 11 (03/30/2013 17:03:00) PTT [22.9-35.8] See Note 12, 13 (03/30/2013 17:03:00) 11Interpretive Data: RECOMMENDED RANGES FOR PROTIME INR: 2.0-3.0 for most medical and surgical thromboembolic states. 2.5-3.5 for artificial heart valves and recurrent embolism. INR SHOULD BE USED ONLY FOR PATIENTS ON STABLE ANTICOAGULANT THERAPY.12Result Comment: Test not performed, notified the Doctor 03/30/2013 18:04:16 [id number] Data: Heparin Therapeutic Range: 57 - 92 Seconds Procedures Procedures Date Related Diagnosis Appendectomy Diskectomy Gallbladder operation Hysterectomy
--- OUTSIDE RECORDS SUMMARY | 2018-10-23 12:14 | XMS REPORT | CCD ---
:1960 Author Organization [facility] Care Team Providers Name Role Phone Connie Jauregui Consulting Provider Dread Stein III Primary Care Provider Allergies, Adverse Reactions, Alerts Substance Reaction Status Benadryl Active Kenalog Kenalog Active levabid Active Talwin Active Problem List Condition Effective Dates Status Anxiety 09/07/2012 Active Asthma Active Chest pain 09/01/2012 Active GERD - Gastro-esophageal reflux disease Active HTN - Hypertension Active Medications Medication Instructions Start Date End Date Status morphine Sulfate 5 mg, Route: IVP, ONCE, 09/08/2012 09/08/2012 Completed Dosing Weight 84.091, kg, Priority: STAT, Start date: 09/08/12 1:42:00, Stop date: 09/08/12 1:42:00 Reglan 10 mg, 1 tab, Route: PO, 09/08/2012 09/10/2012 Discontinued Drug form: TAB, Q8H, Start date: 09/08/12 16:00:00, Duration: 30 day, Stop date: 10/08/12 8:00:00 hydrOXYzine hydrochloride 25 mg, 1 tab, Route: PO, 09/08/2012 09/10/2012 Discontinued 25 mg oral tablet Drug form: TAB, TID, Start date: 09/08/12 9:45:00, Duration: 30 day, Stop date: 10/08/12 9:00:00 Readi-Cat 2 450 mL, Route: PO, Drug 09/09/2012 09/09/2012 Completed Form: SUSP, ONCALL, Start date: 09/09/12 12:00:00, Duration: 30 day, Stop date: 10/09/12 11:59:00 Estrace 2 mg, 2 tab, Route: PO, 09/08/2012 09/10/2012 Discontinued Drug form: TAB, Daily, Start date: 09/08/12 11:10:00, Duration: 30 day, Stop date: 10/08/12 9:00:00 albuterol 0.083% Substitution Allowed 09/08/2012 Ordered inhalation solution Dulera 200 mcg-5 mcg/inh Substitution Allowed, 09/08/2012 Ordered inhalation aerosol Maintenance Combivent inhalation 2 puff, INHALER, QID, 14 09/08/2012 Ordered aerosol with adapter gm, Substitution Allowed, Maintenance Protonix 40 mg oral Substitution Allowed 09/08/2012 Ordered enteric coated tablet ondansetron 8 mg oral Substitution Allowed 09/08/2012 Ordered tablet estradiol 2 mg oral tablet Substitution Allowed 09/08/2012 Ordered K-Dur 10 10 mEq, 1 tab, Route: 09/08/2012 09/10/2012 Discontinued PO, Drug form: ERTAB, Daily, Start date: 09/08/12 10:40:00, Duration: 30 day, Stop date: 10/08/12 9:00:00 K-Dur 20 40 mEq, 2 tab, Route: 09/08/2012 09/08/2012 Completed PO, Drug form: ERTAB, ONCE, Start date: 09/08/12 14:25:00, Stop date: 09/08/12 14:25:00 Antivert 12.5 mg, 1 tab, Route: 09/09/2012 09/10/2012 Discontinued PO, Drug form: TAB, BID, Start date: 09/09/12 15:07:00, Duration: 30 day, Stop date: 10/09/12 9:00:00 ALPRAZOLam 0.25 mg oral Substitution Allowed 09/08/2012 Ordered tablet, disintegrating topiramate 25 mg oral Substitution Allowed 09/08/2012 Ordered tablet Prevacid 30 mg oral Substitution Allowed 09/08/2012 Ordered delayed release capsule losartan 100 mg oral Substitution Allowed 09/08/2012 Ordered tablet hydrOXYzine hydrochloride Substitution Allowed 09/08/2012 Ordered 25 mg oral tablet metoclopramide 10 mg oral Substitution Allowed 09/08/2012 Ordered tablet Singulair 10 mg oral Substitution Allowed 09/08/2012 Ordered tablet Creon 24,000 units oral Substitution Allowed, 09/08/2012 Ordered delayed release capsule Maintenance sucralfate 1 g oral tablet Substitution Allowed 09/08/2012 Ordered Hardwick 10/325 oral tablet Substitution Allowed, 09/08/2012 Ordered Maintenance hydrOXYzine hydrochloride 25 mg, 1 tab, Route: PO, 09/09/2012 09/10/2012 Discontinued 25 mg oral tablet Drug form: TAB, Q8H, PRN Itching, Start date: 09/09/12 21:11:00, Duration: 30 day, Stop date: 10/09/12 21:10:00 Sodium Chloride 0.9% IV 250 mL, Route: IVPB, 09/08/2012 09/10/2012 Discontinued Start date: 09/08/12 0:36:00, Duration: 30 day, Stop date: 10/08/12 0:35:00, PRN Line Flush BD Normal Saline Flush 10 mL, Route: IVP, Drug 09/08/2012 09/10/2012 Discontinued Form: INJ, PRN, PRN Line Flush, Start date: 09/08/12 0:36:00, Duration: 30 day, Stop date: 10/08/12 0:35:00 Carafate 1 gm, 1 tab, Route: PO, 09/08/2012 09/10/2012 Discontinued Drug form: TAB, BID-Before Meals, Start date: 09/08/12 16:30:00, Duration: 30 day, Stop date: 10/08/12 7:30:00 Protonix 40 mg, 1 tab, Route: PO, 09/08/2012 09/10/2012 Discontinued Drug form: ECTAB, QAM, Start date: 09/08/12 10:45:00, Stop date: 10/08/12 9:00:00 ipratropium 0.02% 0.5 mg, 2.5 mL, Route: 09/08/2012 09/10/2012 Discontinued inhalation solution NEB, Drug form: SOLN, RQ4H, PRN Shortness of breath, Start date: 09/08/12 7:55:00, Duration: 30 day, Stop date: 10/08/12 7:54:00 Zofran 8 mg, 2 tab, Route: PO, 09/08/2012 09/10/2012 Discontinued Drug form: TAB, Q6H, PRN Nausea, Start date: 09/08/12 9:49:00, Duration: 30 day, Stop date: 10/08/12 9:48:00 acetaminophen-hydrocodone 1 tab, Route: PO, Drug 09/08/2012 09/10/2012 Discontinued 325 mg-10 mg oral tablet Form: TAB, Q4H, PRN Pain, Start date: 09/08/12 9:43:00, Duration: 30 day, Stop date: 10/08/12 9:42:00 Zofran 4 mg, 2 mL, Route: IVP, 09/08/2012 09/10/2012 Discontinued Drug form: INJ, Q6H, PRN Nausea & Vomiting, Start date: 09/08/12 5:26:00, Duration: 30 day, Stop date: 10/08/12 5:25:00 morphine Sulfate 2 mg, 1 mL, Route: IVP, 09/08/2012 09/09/2012 Discontinued Drug form: INJ, Q2H, PRN Pain Score 7-10, Start date: 09/08/12 5:25:00, Duration: 30 day, Stop date: 10/08/12 5:24:00 aspirin 81 mg tablet, 162 mg, 2 tab, Route: 09/08/2012 09/08/2012 Discontinued chewable CHEW, Drug form: CHEWTAB, Daily, Start date: 09/08/12 9:00:00, Duration: 30 day, Stop date: 10/07/12 9:00:00 Topamax 25 mg, 1 tab, Route: PO, 09/08/2012 09/10/2012 Discontinued Drug form: TAB, Daily, Start date: 09/08/12 10:00:00, Duration: 30 day, Stop date: 10/08/12 9:00:00 albuterol 2.49 mg, 3 mL, Route: 09/08/2012 09/10/2012 Discontinued NEB, Drug form: SOLN, RQ6H, Start date: 09/08/12 14:00:00, Duration: 30 day, Stop date: 10/08/12 8:00:00 nitroglycerin 2% ointment 0.5 inch, Route: TOP, 09/07/2012 09/08/2012 Completed Drug Form: OINT, Dosing Weight 84.091, kg, ONCE, STAT, Start date: 09/07/12 23:37:00, Stop date: 09/07/12 23:37:00 morphine Sulfate 5 mg, Route: IVP, ONCE, 09/07/2012 09/08/2012 Completed Dosing Weight 84.091, kg, Priority: STAT, Start date: 09/07/12 23:37:00, Stop date: 09/07/12 23:37:00 ondansetron 4 mg, Route: IVP, ONCE, 09/07/2012 09/08/2012 Completed Dosing Weight 84.091, kg, Priority: STAT, Start date: 09/07/12 23:37:00, Stop date: 09/07/12 23:37:00 pancrelipase 1 cap, Route: PO, Drug 09/08/2012 09/10/2012 Discontinued Form: CAP, QID-Before Meals, Start date: 09/08/12 11:30:00, Duration: 30 day, Stop date: 10/08/12 7:30:00 Saline Flush 0.9% 5 ml, Route: IVP, Dosing 09/07/2012 09/08/2012 Discontinued Weight 84.091, kg, PRN, PRN Line Flush, Start date: 09/07/12 23:37:00, Duration: 24 hr, Stop date: 09/08/12 23:36:00 Sodium Chloride 0.9% 500 mL, Rate: 500 ml/hr, 09/07/2012 09/08/2012 Completed (Bolus) IV 500 mL Infuse over: 1 hr, Route: IV, kg, Total Volume: 500, Bolus dose, Priority: STAT, Start date: 09/07/12 23:37:00, Duration: 1 doses or times, Stop date: 09/08/12 0:36:00 Combivent inhalation 2 puff, Route: INHALER, 09/08/2012 09/10/2012 Discontinued aerosol with adapter Drug Form: AERO/A, QID, Start date: 09/08/12 13:00:00, Duration: 30 day, Stop date: 10/08/12 9:00:00 Cozaar 100 mg, 2 tab, Route: 09/08/2012 09/08/2012 Discontinued PO, Drug form: TAB, Daily, Start date: 09/08/12 10:40:00, Duration: 30 day, Stop date: 10/08/12 9:00:00 Singulair 10 mg, 1 tab, Route: PO, 09/08/2012 09/10/2012 Discontinued Drug form: TAB, Daily, Start date: 09/08/12 12:15:00, Duration: 30 day, Stop date: 10/08/12 9:00:00 Senokot 8.6 mg, 1 tab, Route: 09/09/2012 09/10/2012 Discontinued PO, Drug form: TAB, Daily, Start date: 09/09/12 9:00:00, Duration: 30 day, Stop date: 10/08/12 9:00:00 Xanax 0.25 mg, 1 tab, Route: 09/08/2012 09/10/2012 Discontinued PO, Drug form: TAB, Bedtime, Start date: 09/08/12 21:00:00, Duration: 30 day, Stop date: 10/07/12 21:00:00 Vital Signs Most recent to oldest 1 2 3 [Reference Range]: Height 157.48 cm (09/08/2012 04:33:00) Current Weight 66.001 kg 87.001 kg (09/10/2012 04:00:00) (09/08/2012 05:30:00) Temperature Oral 98.2 DegF 98 DegF 98.1 DegF [96.4-99.1 DegF] (09/10/2012 13:59:00) (09/10/2012 07:55:00) (09/10/2012 04: 00:00) Systolic Blood Pressure 132 mmHg 108 mmHg 125 mmHg [90-140 mmHg] (09/10/2012 13:59:00) (09/10/2012 07:55:00) (09/10/2012 04:00: 00) Diastolic Blood Pressure 77 mmHg 66 mmHg 89 mmHg [60-90 mmHg] (09/10/2012 13:59:00) (09/10/2012 07:55:00) (09/10/2012 04:00: 00) Respiratory Rate [14-20 19 BRMIN 19 BRMIN 18 BRMIN BRMIN] (09/10/2012 13:59:00) (09/10/2012 07:55:00) (09/10/2012 04:00:00) Peripheral Pulse Rate 80 bpm 90 bpm 74 bpm [60-100 bpm] (09/10/2012 13:59:00) (09/10/2012 07:55:00) (09/10/2012 04:00: 00) Weight 86.400 kg (09/08/2012 04:33:00) Results URINALYSIS Most recent to oldest [Reference 1 2 3 Range]: UA Turbidity [Clear] Clear Clear (09/08/2012 14:55:00) (09/08/2012 02:20:00) UA Color [Yellow] Light Yellow Yellow *NA* *NA* (09/08/2012 14:55:00) (09/08/2012 02:20:00) UA pH [5.0-8.0] 7.0 (09/08/2012 14:55:00) UA pH [5.0-8.0] 6.0 (09/08/2012 02:20:00) UA Spec Grav [<=1.030] 1.003 (09/08/2012 14:55:00) UA Spec Grav [<=1.030] 1.010 (09/08/2012 02:20:00) UA Glucose [Negative mg/dL] Negative mg/dL Negative mg/dL *NA* (09/08/2012 02:20:00) (09/08/2012 14:55:00) UA Blood [Negative] Negative Negative (09/08/2012 14:55:00) (09/08/2012 02:20:00) UA Ketones [Negative mg/dL] Negative mg/dL Negative mg/dL *NA* *NA* (09/08/2012 14:55:00) (09/08/2012 02:20:00) UA Protein [Negative mg/dL] Negative mg/dL Negative mg/dL (09/08/2012 14:55:00) (09/08/2012 02:20:00) UA Urobilinogen [0.1-1.0 mg/dL] <=1.0 mg/dL *NA* (09/08/2012 14:55:00) UA Urobilinogen [0.1-1.0 EU/dL] 0.2 EU/dL (09/08/2012 02:20:00) UA Bili [Negative] Negative Negative *NA* *NA* (09/08/2012 14:55:00) (09/08/2012 02:20:00) UA Leuk Est [Negative] Negative Negative (09/08/2012 14:55:00) (09/08/2012 02:20:00) UA Nitrite [Negative] Negative Negative (09/08/2012 14:55:00) (09/08/2012 02:20:00) UA WBC [0-5 /HPF] <1 /HPF (09/08/2012 14:55:00) UA WBC [None Seen /HPF] 0-2 /HPF (09/08/2012 02:20:00) UA RBC [0-2 /HPF] <1 /HPF (09/08/2012 14:55:00) UA RBC [0-2] None Seen (09/08/2012 02:20:00) UA Bacteria [None Seen /HPF] Occasional /HPF Few /HPF *NA* (09/08/2012 02:20:00) (09/08/2012 14:55:00) UA Sq Epi [Few /LPF] Few /LPF Occasional /LPF *NA* (09/08/2012 02:20:00) (09/08/2012 14:55:00) UA Mucus [None Seen /LPF] Few /LPF *NA* (09/08/2012 14:55:00) Micro? Performed (09/08/2012 02:20:00) STOOL TESTS Most recent to oldest [Reference Range]: 1 2 3 Occult Bld Stl [Negative] Negative (09/09/2012 19:45:00) BLOOD BANK RESULTS Most recent to oldest [Reference Range]: 1 2 3 ABO/Rh B POS *Unknown* (09/08/2012 14:05:00) Antibody Scrn Negative (09/08/2012 14:05:00) TOSHIA Gel Int Negative (09/08/2012 14:00:00) C3 Int Negative (09/08/2012 14:00:00) CHEMISTRY Most recent to oldest 1 2 3 [Reference Range]: Sodium Lvl [135-145 mEq/L] 138 mEq/L 142 mEq/L 143 mEq/L (09/10/2012 05:06:00) (09/09/2012 05:10:00) (09/08/2012 05:45:00) Potassium Lvl [3.5-5.1 3.9 mEq/L 3.9 mEq/L 3.2 mEq/L mEq/L] (09/10/2012 05:06:00) (09/09/2012 05:10:00) *LOW* (09/08/2012 05:45:00) Chloride Lvl [95-109 mEq/L] 104 mEq/L 107 mEq/L 105 mEq/L (09/10/2012 05:06:00) (09/09/2012 05:10:00) (09/08/2012 05:45:00) CO2 [24-32 mEq/L] 24 mEq/L 25 mEq/L 28 mEq/L (09/10/2012 05:06:00) (09/09/2012 05:10:00) (09/08/2012 05:45:00) AGAP [10.0-20.0 mEq/L] 13.9 mEq/L 13.9 mEq/L 13.2 mEq/L (09/10/2012 05:06:00) (09/09/2012 05:10:00) (09/08/2012 05:45:00) Creatinine Lvl [0.5-1.4 1.1 mg/dL 0.9 mg/dL 1.1 mg/dL mg/dL] (09/10/2012 05:06:00) (09/09/2012 05:10:00) (09/08/2012 05:45:00) eGFR 67 mL/min/1.73m2 1 86 mL/min/1.73m2 2 67 mL/min/1.73m2 3 *NA* *NA* *NA* (09/10/2012 05:06:00) (09/09/2012 05:10:00) (09/08/2012 05:45:00) BUN [7-22 mg/dL] 8 mg/dL 9 mg/dL 10 mg/dL (09/10/2012 05:06:00) (09/09/2012 05:10:00) (09/08/2012 05:45:00) B/C Ratio [6-25] 9 (09/08/2012 00:20:00) Glucose Lvl [70-99 mg/dL] 120 mg/dL 4 91 mg/dL 5 88 mg/dL 6 *HI* (09/09/2012 05:10:00) (09/08/2012 05:45:00) (09/10/2012 05:06:00) Total Protein [6.4-8.4 6.6 g/dL 7.5 g/dL g/dL] (09/09/2012 05:10:00) (09/08/2012 00:20:00) Albumin Lvl [3.5-5.0 g/dL] 3.0 g/dL 3.3 g/dL *LOW* *LOW* (09/09/2012 05:10:00) (09/08/2012 00:20:00) Globulin [2.0-4.0 g/dL] 3.6 g/dL 4.2 g/dL (09/09/2012 05:10:00) *HI* (09/08/2012 00:20:00) A/G Ratio [0.7-1.6] 0.8 0.8 (09/09/2012 05:10:00) (09/08/2012 00:20:00) Calcium Lvl [8.5-10.5 8.7 mg/dL 8.7 mg/dL 8.2 mg/dL mg/dL] (09/10/2012 05:06:00) (09/09/2012 05:10:00) *LOW* (09/08/2012 05:45:00) ALT [0-65 unit/L] 18 unit/L 21 unit/L (09/09/2012 05:10:00) (09/08/2012 00:20:00) AST [0-37 unit/L] 11 unit/L 7 unit/L (09/09/2012 05:10:00) (09/08/2012 00:20:00) Alk Phos [39-136 unit/L] 74 unit/L 91 unit/L (09/09/2012 05:10:00) (09/08/2012 00:20:00) Bili Total [0.2-1.3 mg/dL] 0.3 mg/dL 0.2 mg/dL (09/09/2012 05:10:00) (09/08/2012 00:20:00) Bili Direct [0.0-0.3 mg/dL] 0.1 mg/dL (09/09/2012 05:10:00) Bili Indirect [0.0-1.0 0.2 mg/dL mg/dL] (09/09/2012 05:10:00) Total CK [12-191 unit/L] 88 unit/L 93 unit/L 125 unit/L (09/08/2012 11:52:00) (09/08/2012 05:45:00) (09/08/2012 00:20:00) CK MB [0.5-3.6 ng/mL] <0.5 ng/mL <0.5 ng/mL 0.7 ng/mL (09/08/2012 11:52:00) (09/08/2012 05:45:00) (09/08/2012 00:20:00) CK MB Index [0.0-2.5] 0.6 (09/08/2012 00:20:00) Troponin-I [0.00-0.40 <0.02 ng/mL <0.02 ng/mL <0.02 ng/mL ng/mL] (09/08/2012 11:52:00) (09/08/2012 05:45:00) (09/08/2012 00:20:00) BNP [<=100 pg/mL] 29 pg/mL 7 (09/08/2012 00:20:00) CHD Risk [3.90-5.80] 2.10 *LOW* (09/09/2012 05:10:00) Chol [120-200 mg/dL] 162 mg/dL (09/09/2012 05:10:00) Trig [0-200 mg/dL] 101 mg/dL (09/09/2012 05:10:00) HDL [>=35 mg/dL] 77 mg/dL (09/09/2012 05:10:00) LDL [0-129 mg/dL] 65 mg/dL (09/09/2012 05:10:00) G-6-PD Qnt [7.0-20.5 23.0 Units/g Hgb Units/g Hgb] *HI* (09/09/2012 10:48:00) Iron [30-160 ug/dl] 62 ug/dl (09/08/2012 11:52:00) Ferritin Lvl [5-204 ng/mL] 12 ng/mL (09/09/2012 10:48:00) % [place] Fe [12-57 %] 21 % (09/08/2012 11:52:00) UIBC [110-370 ug/dl] 231 ug/dl (09/08/2012 11:52:00) Vitamin B12 Lvl [254-1320 582 pg/mL pg/mL] (09/08/2012 11:52:00) RBC Folate [280-791 ng/mL] 587 ng/mL (09/08/2012 11:52:00) TIBC [228-428 ug/dl] 293 ug/dl (09/08/2012 11:52:00) 1Result Comment: The eGFR is calculated using [...] eGFR should be multiplied by the estimated BMI.2Result Comment: The eGFR is calculated using the [...] values reflect the clinical guidelines of the [place] [employer].5Interpretive Data: Adult reference range values reflect the clinical guidelines of the [employer].6Interpretive Data: Adult reference range values reflect the clinical guidelines of the [employer].7Interpretive Data: Elevated results are in line with increasing severity of congestive heart failure. Minor elevations between 100 and 300 may be seen with Myocardial Ischemia, Sodium retaining drugs, and compensated/treated heart failure.HEMATOLOGY Most recent to oldest 1 2 3 [Reference Range]: WBC [3.7-10.4 K/CMM] 15.5 K/CMM 15.8 K/CMM 19.1 K/CMM *HI* *HI* *HI* (09/10/2012 05:06:00) (09/09/2012 05:10:00) (09/08/2012 14:05:00) RBC [4.20-5.40 M/CMM] 3.87 M/CMM 3.88 M/CMM 3.76 M/CMM *LOW* *LOW* *LOW* (09/10/2012 05:06:00) (09/09/2012 05:10:00) (09/08/2012 14:05:00) Hgb [12.0-16.0 g/dL] 10.2 g/dL 10.3 g/dL 9.7 g/dL *LOW* *LOW* *LOW* (09/10/2012 05:06:00) (09/09/2012 05:10:00) (09/08/2012 14:05:00) Hct [36.0-48.0 %] 31.0 % 30.7 % 29.9 % *LOW* *LOW* *LOW* (09/10/2012 05:06:00) (09/09/2012 05:10:00) (09/08/2012 14:05:00) MCV [81.0-99.0 fL] 80.0 fL 79.2 fL 79.6 fL *LOW* *LOW* *LOW* (09/10/2012 05:06:00) (09/09/2012 05:10:00) (09/08/2012 14:05:00) MCH [27.0-31.0 pg] 26.4 pg 26.4 pg 25.9 pg *LOW* *LOW* *LOW* (09/10/2012 05:06:00) (09/09/2012 05:10:00) (09/08/2012 14:05:00) MCHC [32.0-36.0 g/dL] 33.0 g/dL 33.3 g/dL 32.5 g/dL (09/10/2012 05:06:00) (09/09/2012 05:10:00) (09/08/2012 14:05:00) RDW [11.5-14.5 %] 15.3 % 15.2 % 15.2 % *HI* *HI* *HI* (09/10/2012 05:06:00) (09/09/2012 05:10:00) (09/08/2012 14:05:00) Platelet [133-450 K/CMM] 335 K/CMM 344 K/CMM 351 K/CMM (09/10/2012 05:06:00) (09/09/2012 05:10:00) (09/08/2012 14:05:00) MPV [7.4-10.4 fL] 8.1 fL 8.5 fL 7.9 fL (09/10/2012 05:06:00) (09/09/2012 05:10:00) (09/08/2012 14:05:00) Segs [45.0-75.0 %] 58.0 % 71.9 % 59.6 % (09/10/2012 05:06:00) (09/09/2012 10:48:00) (09/09/2012 05:10:00) Lymphocytes [20.0-40.0 %] 31.7 % 18.6 % 29.2 % (09/10/2012 05:06:00) *LOW* (09/09/2012 05:10:00) (09/09/2012 10:48:00) Monocytes [2.0-12.0 %] 8.2 % 8.3 % 9.5 % (09/10/2012 05:06:00) (09/09/2012 10:48:00) (09/09/2012 05:10:00) Eosinophils [0.0-4.0 %] 1.5 % 0.9 % 1.2 % (09/10/2012 05:06:00) (09/09/2012 10:48:00) (09/09/2012 05:10:00) Basophils [0.0-1.0 %] 0.6 % 0.3 % 0.5 % (09/10/2012 05:06:00) (09/09/2012 10:48:00) (09/09/2012 05:10:00) Segs-Bands # [1.5-8.1 9.0 K/CMM 9.4 K/CMM 10.5 K/CMM K/CMM] *HI* *HI* *HI* (09/10/2012 05:06:00) (09/09/2012 05:10:00) (09/08/2012 14:05:00) Lymphocytes # [1.0-5.5 4.9 K/CMM 4.6 K/CMM 6.5 K/CMM K/CMM] (09/10/2012 05:06:00) (09/09/2012 05:10:00) *HI* (09/08/2012 14:05:00) Monocytes # [0.0-0.8 1.3 K/CMM 1.5 K/CMM 1.7 K/CMM K/CMM] *HI* *HI* *HI* (09/10/2012 05:06:00) (09/09/2012 05:10:00) (09/08/2012 14:05:00) Eosinophils # [0.0-0.5 0.2 K/CMM 0.2 K/CMM 0.2 K/CMM K/CMM] (09/10/2012 05:06:00) (09/09/2012 05:10:00) (09/08/2012 14:05:00) Basophils # [0.0-0.2 0.1 K/CMM 0.1 K/CMM 0.3 K/CMM K/CMM] (09/10/2012 05:06:00) (09/09/2012 05:10:00) *HI* (09/08/2012 14:05:00) Polychrom [None Seen] Slight (09/08/2012 14:05:00) Hypochrom [None Seen] Slight (09/08/2012 14:05:00) Plt Morph Normal (09/08/2012 14:05:00) Sed Rate [0-20 mm/hr] 22 mm/hr *HI* (09/09/2012 10:48:00) Retic Auto [0.5-1.5 %] 1.5 % (09/08/2012 15:37:00) PT [12.0-14.7 seconds] 14.8 seconds 14.3 seconds *HI* (09/08/2012 00:20:00) (09/09/2012 05:10:00) INR [0.85-1.17] 1.14 8 1.09 9 (09/09/2012 05:10:00) (09/08/2012 00:20:00) PTT [22.9-35.8 seconds] 27.4 seconds 10 (09/08/2012 00:20:00) 8Interpretive Data: RECOMMENDED RANGES FOR PROTIME INR: 2.0-3.0 for most medical and surgical thromboembolic states. 2.5-3.5 for artificial heart valves and recurrent embolism. INR SHOULD BE USED ONLY FOR PATIENTS ON STABLE ANTICOAGULANT THERAPY.9Interpretive Data: RECOMMENDED RANGES FOR PROTIME INR: 2.0-3.0 for most medical and surgical thromboembolic states. 2.5-3.5 for artificial heart valves and recurrent embolism. INR SHOULD BE USED ONLY FOR PATIENTS ON STABLE ANTICOAGULANT THERAPY.10Interpretive Data: Heparin Therapeutic Range: 57 - 92 SecondsIMMUNOLOGY Most recent to oldest [Reference 1 2 3 Range]: Albumin % [55.8-66.1 REL %] 47.8 REL % *LOW* (09/08/2012 11:52:00) Alpha 1 % [2.8-4.9 REL %] 5.4 REL % *HI* (09/08/2012 11:52:00) Alpha 2 % [7.0-11.9 REL %] 10.9 REL % (09/08/2012 11:52:00) Beta % [7.8-13.7 REL %] 23.2 REL % *HI* (09/08/2012 11:52:00) Gamma % [11.1-18.7 REL %] 12.7 REL % (09/08/2012 11:52:00) Albumin (SPE) [3.57-5.55 g/dL] 3.06 g/dL *LOW* (09/08/2012 11:52:00) Alpha 1 Glob [0.18-0.41 g/dL] 0.35 g/dL (09/08/2012 11:52:00) Alpha 2 Glob [0.45-1.00 g/dL] 0.70 g/dL (09/08/2012 11:52:00) Beta Glob [0.50-1.15 g/dL] 1.48 g/dL *HI* (09/08/2012 11:52:00) Gamma Glob [0.71-1.57 g/dL] 0.81 g/dL (09/08/2012 11:52:00) Tot Prot (SPE) [6.4-8.4 g/dL] 6.4 g/dL (09/08/2012 11:52:00) SPE Interp Total protein is borderline decreased with a corresponding decrease in serum albumin. No definite monoclonal proteins are identified. However, the beta-2 peak ( 0.54 g/dl) is unusually prominent and, therefore, an underlying monoclonal protein cannot be excluded. Clinical correlation is recommended with immunofixation electrophoresis of serum and urine if clinically indicated. *NA* (09/08/2012 11:52:00)
--- OUTSIDE RECORDS SUMMARY | 2018-10-23 12:14 | XMS REPORT | CCD ---
:1960 Author Organization [facility] Care Team Providers Name Role Phone Connie Jauregui Consulting Provider Dread Stein III Primary Care Provider Allergies, Adverse Reactions, Alerts Substance Reaction Status Benadryl Active Kenalog Kenalog Active levabid Active Talwin Active Problem List Condition Effective Dates Status Chest pain 09/01/2012 Active Medications Medication Instructions Start Date End Date Status Estrace 2 mg, 2 tab, Route: PO, 09/02/2012 09/02/2012 Discontinued Drug form: TAB, Daily, Start date: 09/02/12 9:00:00, Duration: 30 day, Stop date: 10/01/12 9:00:00 Carafate 1 gm, 1 tab, Route: PO, 09/01/2012 09/02/2012 Discontinued Drug form: TAB, BID-Before Meals, Start date: 09/01/12 16:30:00, Duration: 30 day, Stop date: 10/01/12 7:30:00 Protonix 40 mg, 1 tab, Route: PO, 09/02/2012 09/02/2012 Discontinued Drug form: ECTAB, Daily, Start date: 09/02/12 9:00:00, Duration: 30 day, Stop date: 10/01/12 9:00:00 acetaminophen-hydrocodone 1 tab, Route: PO, Drug 09/01/2012 09/02/2012 Discontinued 325 mg-10 mg oral tablet Form: TAB, Q4H, PRN Pain, Start date: 09/01/12 14:36:00, Duration: 30 day, Stop date: 10/01/12 14:35:00 Zofran 8 mg, 2 tab, Route: PO, 09/01/2012 09/02/2012 Discontinued Drug form: TAB, Q6H, PRN Nausea, Start date: 09/01/12 14:41:00, Duration: 30 day, Stop date: 10/01/12 14:40:00 Cozaar 100 mg, 2 tab, Route: 09/02/2012 09/02/2012 Discontinued PO, Drug form: TAB, Daily, Start date: 09/02/12 9:00:00, Duration: 30 day, Stop date: 10/01/12 9:00:00 albuterol 2.49 mg, 3 mL, Route: 09/01/2012 09/02/2012 Discontinued NEB, Drug form: SOLN, Q6H, Start date: 09/01/12 18:00:00, Duration: 30 day, Stop date: 10/01/12 12:00:00 potassium chloride 40 mEq, 30 mL, Route: 09/01/2012 09/01/2012 Completed PO, Drug form: LIQ, ONCE, Start date: 09/01/12 22:22:00, Stop date: 09/01/12 22:22:00 potassium chloride 40 mEq, 30 mL, Route: 09/01/2012 09/01/2012 Completed PO, Drug form: LIQ, ONCE, Start date: 09/01/12 18:21:00, Stop date: 09/01/12 18:21:00 Senokot 8.6 mg, 1 tab, Route: 09/02/2012 09/02/2012 Discontinued PO, Drug form: TAB, Daily, Start date: 09/02/12 9:00:00, Duration: 30 day, Stop date: 10/01/12 9:00:00 hydrOXYzine hydrochloride 25 mg, 1 tab, Route: PO, 09/01/2012 09/02/2012 Discontinued 25 mg oral tablet Drug form: TAB, TID, Start date: 09/01/12 17:00:00, Duration: 30 day, Stop date: 10/01/12 13:00:00 Xanax 0.25 mg, 1 tab, Route: 09/01/2012 09/02/2012 Discontinued PO, Drug form: TAB, Bedtime, Start date: 09/01/12 21:00:00, Duration: 30 day, Stop date: 09/30/12 21:00:00 Topamax 25 mg, 1 tab, Route: PO, 09/02/2012 09/02/2012 Discontinued Drug form: TAB, Daily, Start date: 09/02/12 9:00:00, Duration: 30 day, Stop date: 10/01/12 9:00:00 Combivent inhalation 2 puff, Route: INHALER, 09/01/2012 09/02/2012 Discontinued aerosol with adapter Drug Form: AERO/A, QID, Start date: 09/01/12 17:00:00, Duration: 30 day, Stop date: 10/01/12 13:00:00 Reglan 10 mg, 1 tab, Route: PO, 09/01/2012 09/02/2012 Discontinued Drug form: TAB, Q8H, Start date: 09/01/12 16:00:00, Duration: 30 day, Stop date: 10/01/12 8:00:00 Sodium Chloride 0.9% IV 250 mL, Route: IVPB, 09/01/2012 09/02/2012 Discontinued Start date: 09/01/12 14:30:00, Duration: 30 day, Stop date: 10/01/12 14:29:00, PRN Line Flush BD Normal Saline Flush 10 mL, Route: IVP, Drug 09/01/2012 09/02/2012 Discontinued Form: INJ, PRN, PRN Line Flush, Start date: 09/01/12 14:29:00, Duration: 30 day, Stop date: 10/01/12 14:28:00 pancrelipase 1 cap, Route: PO, Drug 09/01/2012 09/02/2012 Discontinued Form: CAP, QID-Before Meals, Start date: 09/01/12 16:30:00, Duration: 30 day, Stop date: 10/01/12 11:30:00 Vital Signs Most recent to oldest 1 2 3 [Reference Range]: Height 157.48 cm (09/01/2012 13:12:00) Temperature Oral 97.9 DegF 98.1 DegF 98.2 DegF [96.4-99.1 DegF] (09/02/2012 16:00:00) (09/02/2012 07:00:00) (09/02/2012 04: 00:00) Systolic Blood Pressure 109 mmHg 114 mmHg 114 mmHg [90-140 mmHg] (09/02/2012 16:00:00) (09/02/2012 07:00:00) (09/02/2012 04:00: 00) Diastolic Blood Pressure 62 mmHg 62 mmHg 58 mmHg [60-90 mmHg] (09/02/2012 16:00:00) (09/02/2012 07:00:00) *LOW* (09/02/2012 04:00:00) Respiratory Rate [14-20 18 BRMIN 18 BRMIN 20 BRMIN BRMIN] (09/02/2012 16:00:00) (09/02/2012 07:00:00) (09/02/2012 04:00:00) Peripheral Pulse Rate 74 bpm 72 bpm 79 bpm [60-100 bpm] (09/02/2012 16:00:00) (09/02/2012 07:00:00) (09/02/2012 04:00: 00) Weight 84.091 kg (09/01/2012 13:12:00) Results URINALYSIS Most recent to oldest [Reference Range]: 1 2 UA Turbidity [Clear] Clear (09/01/2012 21:20:00) UA Color [Yellow] Yellow *NA* (09/01/2012 21:20:00) UA pH [5.0-8.0] 7.0 (09/01/2012 21:20:00) UA Spec Grav [<=1.030] 1.012 (09/01/2012 21:20:00) UA Glucose [Negative mg/dL] Negative mg/dL *NA* (09/01/2012 21:20:00) UA Blood [Negative] Negative (09/01/2012 21:20:00) UA Ketones [Negative mg/dL] Negative mg/dL *NA* (09/01/2012 21:20:00) UA Protein [Negative mg/dL] Negative mg/dL (09/01/2012 21:20:00) UA Urobilinogen [0.1-1.0 mg/dL] 2.0 mg/dL *HI* (09/01/2012 21:20:00) UA Bili [Negative] Negative *NA* (09/01/2012 21:20:00) UA Leuk Est [Negative] Negative (09/01/2012 21:20:00) UA Nitrite [Negative] Negative (09/01/2012 21:20:00) UA WBC [0-5 /HPF] 1 /HPF (09/01/2012 21:20:00) UA RBC [0-2 /HPF] <1 /HPF (09/01/2012 21:20:00) UA Bacteria [None Seen /HPF] Occasional /HPF *NA* (09/01/2012 21:20:00) UA Sq Epi [Few /LPF] Many /LPF *ABN* (09/01/2012 21:20:00) UA Mucus [None Seen /LPF] Few /LPF *NA* (09/01/2012 21:20:00) CHEMISTRY Most recent to oldest [Reference 1 2 Range]: Sodium Lvl [135-145 mEq/L] 143 mEq/L (09/01/2012 16:30:00) Potassium Lvl [3.5-5.1 mEq/L] 3.7 mEq/L 2.8 mEq/L 1 (09/02/2012 06:00:00) *CRIT* (09/01/2012 16:30:00) Chloride Lvl [95-109 mEq/L] 103 mEq/L (09/01/2012 16:30:00) CO2 [24-32 mEq/L] 27 mEq/L (09/01/2012 16:30:00) AGAP [10.0-20.0 mEq/L] 15.8 mEq/L (09/01/2012 16:30:00) Creatinine Lvl [0.5-1.4 mg/dL] 1.2 mg/dL (09/01/2012 16:30:00) eGFR 60 mL/min/1.73m2 2 *NA* (09/01/2012 16:30:00) BUN [7-22 mg/dL] 7 mg/dL (09/01/2012 16:30:00) Glucose Lvl [70-99 mg/dL] 122 mg/dL 3 *HI* (09/01/2012 16:30:00) Calcium Lvl [8.5-10.5 mg/dL] 8.2 mg/dL *LOW* (09/01/2012 16:30:00) Amylase Lvl [25-115 unit/L] 64 unit/L (09/01/2012 16:30:00) Lipase Lvl [73-393 unit/L] 274 unit/L (09/01/2012 16:30:00) Total CK [12-191 unit/L] 125 unit/L (09/01/2012 16:30:00) CK MB [0.5-3.6 ng/mL] <0.5 ng/mL (09/01/2012 16:30:00) CK MB Index [0.0-2.5] <0.4 (09/01/2012 16:30:00) Troponin-I [0.00-0.40 ng/mL] <0.02 ng/mL (09/01/2012 16:30:00) BNP [<=100 pg/mL] 60 pg/mL 4 (09/01/2012 16:30:00) CHD Risk [3.90-5.80] 2.25 *LOW* (09/01/2012 16:30:00) Chol [120-200 mg/dL] 151 mg/dL (09/01/2012 16:30:00) Trig [0-200 mg/dL] 130 mg/dL (09/01/2012 16:30:00) HDL [>=35 mg/dL] 67 mg/dL (09/01/2012 16:30:00) LDL [0-129 mg/dL] 58 mg/dL (09/01/2012 16:30:00) TSH [0.360-3.740 uIU/mL] 0.334 uIU/mL *LOW* (09/01/2012 16:30:00) 1Result Comment: Critical Result(s) called to gaye heath at 09/01/2012 17:56:50 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 Read back OK.2Result Comment: The eGFR is calculated using the CKD- EPI formula. In most young, healthy individualsthe eGFR will be >90 mL/min/ 1.73m2. The eGFR declines with age. An eGFR [...] eGFR should be multiplied by the estimated BMI.3Interpretive Data: Adult reference range values reflect the clinical guidelines of the [place] [employer].4Interpretive Data: Elevated results are in line with increasing severity of congestive heart failure. Minor elevations between 100 and 300 may be seen with Myocardial Ischemia, Sodium retaining drugs, and compensated/treated heart failure.IMMUNOLOGY Most recent to oldest [Reference Range]: 1 2 CRP, High Sensitivity 11.6 mg/L 5 *NA* (09/01/2012 16:30:00) 5Interpretive Data: Low Risk: <1.0 mg/L Average Risk: 1.0 - 3.0 mg/L High Risk: >10.0 mg/L
[2018-10-23 12:15] LABS: Absolute Lymphocytes (CBC) 7.1 K/uL (0.7-4.9); Absolute Monocytes 2.1 K/uL (0.1-1.3); Absolute Neutrophil 10.8 K/uL (1.8-8.0); Basophils % 0.6 % (0-1.3); Eosinophils % 1.1 % (0-4.4); Hematocrit 34.4 % (36.0-45.0); Lymphocytes % 35.1 % (15.3-44.8); MPV 8.7 fL (7.6-11.3); Monocytes % 10.1 % (3.3-12.3); RBC Red Blood Cell Count 4.46 M/uL (3.86-4.86)
--- OUTSIDE RECORDS SUMMARY | 2018-10-23 12:15 | XMS REPORT | Summary of Care ---
:1960 Author Care Team Providers Name Role Phone Dread Stein III Primary Care Physician Encounter [facility] Isaac(FIN) [id number] Date(s): 06/16/14 - 06/21/[address] Discharge Disposition: Home Physician Attending: Krysta Martinez MD Physician Admitting: Krysta Martinez MD Reason for Visit ACUTE ABDOMINAL PAIN Vital Signs Most recent to oldest 1 2 3 [Reference Range]: Height 157.4 cm 157.48 cm (06/16/14 9:26 PM) (06/16/14 12:38 PM) Temperature Oral [96.4-99.1 98.1 DegF 98.1 DegF 98.5 DegF DegF] (06/21/14 7:00 AM) (06/21/14 4:05 AM) (06/21/14 12:00 AM) Systolic Blood Pressure 110 mmHg 119 mmHg 112 mmHg [90-140 mmHg] (06/21/14 7:00 AM) (06/21/14 4:05 AM) (06/21/14 12:00 AM) Diastolic Blood Pressure 75 mmHg 79 mmHg 76 mmHg [60-90 mmHg] (06/21/14 7:00 AM) (06/21/14 4:05 AM) (06/21/14 12:00 AM) Respiratory Rate [14-20 BRMIN] 18 BRMIN 18 BRMIN 20 BRMIN (06/21/14 7:00 AM) (06/21/14 4:05 AM) (06/21/14 12:00 AM) Peripheral Pulse Rate [60-100 81 bpm 97 bpm 102 bpm bpm] (06/21/14 7:00 AM) (06/21/14 12:00 AM) *HI* (06/20/14 8:00 PM) Weight 72.72 kg 72.727 kg (06/16/14 9:26 PM) (06/16/14 12:38 PM) Body Mass Index 29.35 m2 29.33 m2 (06/16/14 9:26 PM) (06/16/14 12:38 PM) Problem List Condition Effective Dates Status Health Status Informant Anxiety(Confirmed) 09/07/12 Active Asthma(Confirmed) Active ASTHMA(Confirmed) Resolved Bulging disc(Confirmed) Resolved CAD - Coronary artery Active disease(Confirmed) Chest pain(Confirmed) 09/01/12 Active Gastritis(Confirmed) Active GERD - Gastro-esophageal reflux Active disease(Confirmed) Heartburn(Confirmed) Active HTN - Hypertension(Confirmed) Resolved HTN - Hypertension(Confirmed) Active Mitral valve prolapse(Confirmed) Active Pancreatitis(Confirmed) Active Allergies, Adverse Reactions, Alerts Substance Reaction Severity Status Benadryl hives Active ibuprofen Active Kenalog Kenalog Active levabid hives Active penicillins Active Talwin unfunctional Active Medications 1/2 NS 1,000 mL 1,000 mL, Rate: 100 ml/hr, Infuse over: 10 hr, Route: IV, Dosing Weight 72.727 kg, Total Volume: 1,000, Start date: 06/16/14 18:57:00, Duration: 30 day, Stop date: 07/16/14 18:56:00 Start Date: 06/16/14 Stop Date: 06/20/14 Status: DiscontinuedALPRAZOLam 0.5 mg, 2 tab, Route: PO, Drug form: TAB, BID, Dosing Weight 72.72, kg, PRN Anxiety, Start date: 06/16/14 23:40:00, Duration: 30 day, Stop date: 07/16/14 23 :39:00, bid Notes: With food or milk(Same as: Xanax) Start Date: 06/16/14 Stop Date: 06/21/14 Status: Discontinuedamitriptyline 10 mg, 1 tab, Route: PO, Drug form: TAB, Bedtime, Dosing Weight 72.72, kg, Start date: 06/17/14 0:15:00, Duration: 30 day, Stop date: 07/16/14 21:00:00 Notes: (Same as: Elavil) Start Date: 06/17/14 Stop Date: 06/21/14 Status: Discontinuedamitriptyline 10 mg oral tablet 10 mg=1 tab, Bedtime, 0 Refill(s) Start Date: 06/16/14 Status: OrderedBentyl 20 mg, 1 tab, Route: PO, Drug form: TAB, QID, Dosing Weight 72.727, kg, Start date: 06/16/14 21:00:00, Duration: 30 day, Stop date: 07/16/14 17:00:00 Notes: (Same as: Bentyl) Start Date: 06/16/14 Stop Date: 06/21/14 Status: DiscontinuedCarafate 1 gm, 1 tab, Route: PO, Drug form: TAB, QID-Before Meals, Dosing Weight 72.727, kg, Start date: 06/16/14 21:00:00, Duration: 30 day, Stop date: 07/16/14 16:30: 00 Notes: May interfere w/enteral feeds - Take 1 hr before or 2 hr after antacids , dairy pdt, meals & minerals - On empty stomach. (Same As: Carafate) Start Date: 06/16/14 Stop Date: 06/21/14 Status: DiscontinuedcarBAMazepine 400 mg, 2 tab, Route: PO, Drug form: TAB, BID, Dosing Weight 72.72, kg, Start date: 06/17/14 6:00:00, Duration: 30 day, Stop date: 07/16/14 18:00:00 Notes: With food. (Same As: Tegretol) Start Date: 06/17/14 Stop Date: 06/21/14 Status: DiscontinuedcarBAMazepine 200 mg oral tablet 400 mg=2 tab, BID, 0 Refill(s) Start Date: 06/16/14 Status: Orderedcarvedilol 3.125 mg, 1 tab, Route: PO, Drug form: TAB, Q12H, Dosing Weight 72.72, kg, Start date: 06/17/14 9:00:00, Duration: 30 day, Stop date: 07/16/14 21:00:00 Notes: Give with food. (Same As: Coreg) Start Date: 06/17/14 Stop Date: 06/21/14 Status: DiscontinuedCipro 400 mg, 200 mL, Route: IVPB, Drug form: INJ, [id number], Dosing Weight 72.72, kg, Start date: 06/18/14 21:00:00, Duration: 30 day, Stop date: 07/18/14 9:00:00 Notes: Do not refrigerate Start Date: 06/18/14 Stop Date: 06/20/14 Status: DiscontinuedCipro 400 mg, 200 mL, Route: IVPB, Drug form: INJ, [id number], Start date: 06/16/14 21:00 :00, Duration: 30 day, Stop date: 07/16/14 9:00:00 Notes: Do not refrigerate Start Date: 06/16/14 Stop Date: 06/18/14 Status: DiscontinuedCipro 500 mg oral tablet 500 mg=1 tab, PO, Q12H, # 14 tab, 0 Refill(s) Start Date: 06/19/14 Stop Date: 06/20/14 Status: DiscontinuedCipro 500 mg oral tablet 500 mg=1 tab, PO, Q12H, # 14 tab, 0 Refill(s) Start Date: 06/21/14 Stop Date: 06/28/14 Status: Orderedciprofloxacin 400 mg, Route: IVPB, [id number], Dosing Weight 72.727, kg, Start date: 06/16/14 20: 00:00, Duration: 30 day, Stop date: 07/16/14 8:00:00 Start Date: 06/16/14 Stop Date: 06/16/14 Status: DeletedColace 100 mg oral capsule 100 mg, 1 cap, Route: PO, Drug form: CAP, BID, Dosing Weight 72.72, kg, Start date: 06/19/14 9:00:00, Duration: 30 day, Stop date: 07/18/14 17:00:00 Notes: (Same as: Colace) (Do Not Crush) Start Date: 06/19/14 Stop Date: 06/21/14 Status: DiscontinuedColace 100 mg oral capsule 100 mg=1 cap, PO, BID, # 60 cap, 0 Refill(s) Start Date: 06/19/14 Status: OrderedCombivent 20/100 MDI Combivent 20/100 MDI, 2 puff, Drug form: MISC, Route: INHALATION, QID, PRN Wheezing, 06/17/14 12:28:00, Duration: 30 day, Stop date: 07/17/14 12:27:00 Start Date: 06/17/14 Stop Date: 06/21/14 Status: DiscontinuedCombivent inhalation aerosol with adapter 2 puff, Route: INHALATION, Drug Form: AERO, Dosing Weight 72.72, kg, QID, PRN Wheezing, Start date: 06/16/14 23:37:00, Duration: 30 day, Stop date: 07/16/14 23:36:00, bid Notes: Same as: Combivent Respimat Start Date: 06/16/14 Stop Date: 06/17/14 Status: DiscontinuedCreon 24,000 units oral delayed release capsule 1 cap, Route: PO, Drug Form: DRC, Dosing Weight 72.72, kg, ONCE, Start date: 14:54:00, Stopdate: 06/19/14 14:54:00 Notes: Same as: Bev RAMIREZ 24 : Amylase 120,000 units - Lipase 24,000 units - Protease 76,000 units Start Date: 06/19/14 Stop Date: 06/19/14 Status: CompletedCreon 24,000 units oral delayed release capsule 1 cap, Route: PO, Drug Form: DRC, Dosing Weight 72.72, kg, TID-Meals, Start date : 06/17/14 8:00:00, Duration: 30 day, Stop date: 07/16/14 17:00:00 Notes: Same as: Bev RAMIREZ 24 : Amylase 120,000 units - Lipase 24,000 units - Protease 76,000 units Start Date: 06/17/14 Stop Date: 06/19/14 Status: DiscontinuedCreon 24,000 units oral delayed release capsule 1 cap, Route: PO, Drug Form: DRC, Dosing Weight 72.72, kg, QID-With Food, Start date: 06/19/14 21:00:00, Duration: 30 day, Stop date: 07/19/14 17:00:00 Notes: Same as: Bev RAMIREZ 24 : Amylase 120,000 units - Lipase 24,000 units - Protease 76,000 units Start Date: 06/19/14 Stop Date: 06/21/14 Status: DiscontinuedDextrose 50% Syringe 25 gm, 50 mL, Route: IVP, Drug Form: INJ, Dosing Weight 72.72, kg, PRN, PRN Blood Glucose Results, Start date: 06/16/14 22:06:00, Duration: 30 day, Stop date: 07/16/14 22:05:00 Start Date: 06/16/14 Stop Date: 06/21/14 Status: DiscontinuedDextrose 50% Syringe 12.5 gm, 25 mL, Route: IVP, Drug Form: INJ, Dosing Weight 72.72, kg, PRN, PRN Blood Glucose Results,Start date: 06/16/14 22:06:00, Duration: 30 day, Stop date : 07/16/14 22:05:00 Start Date: 06/16/14 Stop Date: 06/21/14 Status: Discontinueddicyclomine 20 mg oral tablet 20 mg=1 tab, PO, QID, # 120 tab, 0 Refill(s) Start Date: 06/19/14 Status: OrderedDulcolax Laxative 10 mg, 1 supp, Route: OK, Drug form: SUPP, PRN, PRN Constipation, Start date: 17:42:00, Duration: 30 day, Stop date: 07/18/14 17:41:00 Notes: (Same As: Dulcolax, Bisco-Lax) Start Date: 06/18/14 Stop Date: 06/21/14 Status: DiscontinuedDuoNeb inhalation solution 3 ml, Route: INHALATION, Drug Form: SOLN, Dosing Weight 72.727, kg, PRN, PRN Respiratory Protocol, Start date: 06/16/14 18:57:00, Duration: 30 day, Stop date : 07/16/14 18:56:00 Notes: (Same as: Duoneb) Start Date: 06/16/14 Stop Date: 06/21/14 Status: DiscontinuedEstradiol Patch 2 mg, Route: TOP, Dosing Weight 72.72, kg, Q14D, Start date: 06/17/14 0:00:00, Duration: 30 day, Stop date: 07/15/14 9:00:00 Start Date: 06/17/14 Stop Date: 06/21/14 Status: DiscontinuedFlagyl 500 mg, 100 mL, Route: IVPB, Drug form: INJ, [id number], Dosing Weight 72.72, kg, Start date: 06/18/14 21:00:00, Duration: 30 day, Stop date: 07/18/14 13:00:00 Notes: (Same as: Flagyl) Avoid alcohol. Start Date: 06/18/14 Stop Date: 06/19/14 Status: DiscontinuedFlagyl 500 mg, 100 mL, Route: IVPB, Drug form: INJ, [id number], Dosing Weight 72.727, kg, Start date: 06/16/14 20:00:00, Duration: 30 day, Stop date: 07/16/14 12:00:00 Notes: (Same as: Flagyl) Avoid alcohol. Start Date: 06/16/14 Stop Date: 06/18/14 Status: DiscontinuedFlagyl 500 mg oral tablet 500 mg=1 tab, PO, Q8H, # 21 tab, 0 Refill(s) Start Date: 06/19/14 Stop Date: 06/20/14 Status: Discontinuedgabapentin 400 mg oral capsule 400 mg, 1 cap, Route: PO, Drug form: CAP, BID, Dosing Weight 72.72, kg, Start date: 06/17/14 6:00:00, Duration: 30 day, Stop date: 07/16/14 18:00:00 Notes: (Same as: Neurontin) Start Date: 06/17/14 Stop Date: 06/21/14 Status: Discontinuedgabapentin 400 mg oral capsule BID, 0 Refill(s) Start Date: 06/16/14 Status: Orderedglucagon 1 mg, Route: IM, Drug form: PDR/INJ, PRN, Dosing Weight 72.72, kg, PRN Blood Glucose Results, Start date: 06/16/14 22:06:00, Duration: 30 day, Stop date: 22:05:00 Start Date: 06/16/14 Stop Date: 06/21/14 Status: DiscontinuedhydrALAZINE 10 mg, 0.5 mL, Route: IVP, Drug form: INJ, Q4H, Dosing Weight 72.727, kg, PRN Other -See Comment, Start date: 06/16/14 18:58:00, Duration: 30 day, Stop date: 07/16/14 18:57:00, SBP > 170 Notes: (Same as: Apresoline)Push over 5 minutes Start Date: 06/16/14 Stop Date: 06/21/14 Status: DiscontinuedhydrOXYzine hydrochloride 25 mg oral tablet 25 mg, 1 tab, Route: PO, Drug form: TAB, TID, Dosing Weight 72.72, kg, PRN as needed for itching, Start date: 06/16/14 23:46:00, Duration: 30 day, Stop date: 07/16/14 23:45:00 Notes: (Same as: Atarax) Avoid alcohol. Start Date: 06/16/14 Stop Date: 06/21/14 Status: Discontinuedlactulose 20 gm, 30 mL, Route: PO, Drug form: SYRP, BID, Start date: 06/19/14 19:21:00, Duration: 30 day, Stopdate: 07/19/14 17:00:00 Notes: (Same as:Chronulac) Start Date: 06/19/14 Stop Date: 06/21/14 Status: Discontinuedlactulose 10 g/15 mL oral syrup 20 gm=30 mL, PO, Daily, Take 2 tablespoons by mouth once a day, 0 Refill(s) Special Instructions: Take 2 tablespoons by mouth once a day Start Date: 06/18/14 Status: Orderedlosartan 100 mg, 2 tab, Route: PO, Drug form: TAB, QAM, Dosing Weight 72.72, kg, Start date: 06/17/14 9:00:00, Duration: 30 day, Stop date: 07/16/14 9:00:00 Notes: (Same as: Pete) Start Date: 06/17/14 Stop Date: 06/21/14 Status: Discontinuedmeclizine 12.5 mg, 1 tab, Route: PO, Drug form: TAB, QID, Dosing Weight 72.72, kg, PRN as needed for dizziness, Start date: 06/16/14 23:48:00, Duration: 30 day, Stop date : 07/16/14 23:47:00 Notes: (Same as: Antivert) Start Date: 06/16/14 Stop Date: 06/21/14 Status: Discontinuedmethocarbamol 750 mg, 1 tab, Route: PO, Drug form: TAB, Q4H, Dosing Weight 72.72, kg, Start date: 06/17/14 0:00:00, Duration: 30 day, Stop date: 07/16/14 20:00:00 Notes: (Same as:Robaxin) Start Date: 06/17/14 Stop Date: 06/21/14 Status: Discontinuedmetoclopramide 10 mg oral tablet 10 mg, 1 tab, Route: PO, Drug form: TAB, Q6H, Dosing Weight 72.72, kg, PRN Nausea, Start date: 06/16/14 23:49:00, Duration: 30 day, Stop date: 07/16/14 23: 48:00, Q6H Notes: (Same as: Reglan) Take 30 min before meals Start Date: 06/16/14 Stop Date: 06/21/14 Status: DiscontinuedMilk of Magnesia 30 mL, Route: PO, Drug Form: SUSP, Daily, Start date: 06/19/14 9:00:00, Duration : 30 day, Stop date:07/18/14 9:00:00 Notes: (Same as: Milk of Magnesia, MOM) Start Date: 06/19/14 Stop Date: 06/21/14 Status: DiscontinuedMiraLax 17 gm, 1 pkt, Route: PO, Drug form: PWDR, Daily, Dosing Weight 72.72, kg, Start date: 06/19/14 9:00:00, Duration: 30 day, Stop date: 07/18/14 9:00:00 Notes: Dissolve in 8 oz of water or juice.(Same as: Miralax) Start Date: 06/19/14 Stop Date: 06/21/14 Status: DiscontinuedMiraLax oral powder for reconstitution 17 gm, PO, Daily, # 255 gm, 0 Refill(s) Start Date: 06/19/14 Status: Orderedmontelukast 10 mg, 1 tab, Route: PO, Drug form: TAB, QPM, Dosing Weight 72.72, kg, Start date: 06/17/14 17:00:00, Duration: 30 day, Stop date: 07/16/14 17:00:00 Notes: (Same as:Singulair) Start Date: 06/17/14 Stop Date: 06/21/14 Status: Discontinuedmorphine Sulfate 4 mg, 1 mL, Route: IVP, Drug form: INJ, Q6H, Dosing Weight 72.727, kg, PRN Pain Score 7-10, Start date: 06/16/14 22:03:00, Duration: 30 day, Stop date: 22:02:00 Notes: (Same as:MORPhine Sulfate) Start Date: 06/16/14 Stop Date: 06/16/14 Status: Deletedmorphine Sulfate 4 mg, 1 mL, Route: IVP, Drug form: INJ, Q4H, Dosing Weight 72.727, kg, PRN Pain , Start date: 06/16/14 18:57:00, Duration: 30 day, Stop date: 07/16/14 18:56:00 Notes: (Same as:MORPhine Sulfate) Start Date: 06/16/14 Stop Date: 06/21/14 Status: Discontinuedmorphine Sulfate 2 mg, 1 mL, Route: IVP, Drug form: INJ, Q4H, Dosing Weight 72.727, kg, PRN Pain , Start date: 06/16/14 18:57:00, Duration: 30 day, Stop date: 07/16/14 18:56:00 Notes: (Same as:MORPhine Sulfate) Start Date: 06/16/14 Stop Date: 06/21/14 Status: Discontinuedmorphine Sulfate 4 mg, Route: IVP, Drug form: INJ, ONCE, Dosing Weight 72.727, kg, Priority: STAT , Start date: 06/16/14 15:50:00, Stop date: 06/16/14 15:50:00 Start Date: 06/16/14 Stop Date: 06/16/14 Status: CompletedNorco 10/325 oral tablet 1 tab, PO, Q6H, as needed for pain, # 30 tab, 0 Refill(s) Start Date: 06/17/14 Status: OrderedNorco 5/325 oral tablet 2 tab, Route: PO, Drug Form: TAB, Dosing Weight 72.727, kg, Q4H, PRN Pain, Start date: 06/16/14 18:57:00, Duration: 30 day, Stop date: 07/16/14 18:56:00 Notes: (Same as: Odum 325/5) Do not exceed 4gm/day of acetaminophen. Start Date: 06/16/14 Stop Date: 06/21/14 Status: DiscontinuedNorco 5/325 oral tablet 1 tab, Route: PO, Drug Form: TAB, Dosing Weight 72.727, kg, Q4H, PRN Pain, Start date: 06/16/14 18:57:00, Duration: 30 day, Stop date: 07/16/14 18:56:00 Notes: (Same as: Odum 325/5) Do not exceed 4gm/day of acetaminophen. Start Date: 06/16/14 Stop Date: 06/21/14 Status: Discontinuedondansetron 4 mg, 2 mL, Route: IVP, Drug form: INJ, Q8H, Dosing Weight 72.72, kg, PRN Nausea & Vomiting, Start date: 06/16/14 22:03:00, Duration: 30 day, Stop date: 07/16/14 22:02:00 Notes: (Same as: Zofran) Start Date: 06/16/14 Stop Date: 06/21/14 Status: DiscontinuedPhenergan 25 mg, 1 mL, Route: IM, Drug form: INJ, Q4H, PRN Nausea, Start date: 06/19/14 14 :38:00, Duration: 30day, Stop date: 07/19/14 14:37:00 Notes: Do not give IV push. (Same as: Phenergan) Start Date: 06/19/14 Stop Date: 06/21/14 Status: DiscontinuedPhenergan 25 mg, 1 mL, Route: IM, Drug form: INJ, Q6H, PRN Nausea & Vomiting, Start date: 06/18/14 17:43:00, Duration: 30 day, Stop date: 07/18/14 17:42:00 Notes: Do not give IV push. (Same as: Phenergan) Start Date: 06/18/14 Stop Date: 06/19/14 Status: DiscontinuedPhenergan 25 mg rectal suppository =1 supp, OK, Q6H, Nausea & Vomiting, # 20 supp, 0 Refill(s) Start Date: 06/19/14 Status: OrderedProtonix 40 mg, Route: IVP, Drug form: INJ, Q12H, Dosing Weight 72.727, kg, Start date: 06/16/14 21:00:00, Duration: 30 day, Stop date: 07/16/14 9:00:00 Notes: For IV push reconstitute with 10 ml 0.9% sodium chloride and push over 2 minutes. (Same as: Protonix) Start Date: 06/16/14 Stop Date: 06/21/14 Status: DiscontinuedProtonix 40 mg oral enteric coated tablet 40 mg=1 tab, PO, Daily, # 30 tab, 0 Refill(s) Start Date: 06/17/14 Status: OrderedRobaxin-750 oral tablet 750 mg=1 tab, Q4H, 0 Refill(s) Start Date: 06/16/14 Status: OrderedSaline Flush 0.9% 10 mL, Route: IVP, Drug Form: INJ, Dosing Weight 72.727, kg, PRN, PRN Line Flush , Start date: 06/16/14 12:43:00, Duration: 30 day, Stop date: 07/16/14 12:42:00 Notes: (Same as: BD Posiflush) Start Date: 06/16/14 Stop Date: 06/21/14 Status: DiscontinuedSodium Chloride 0.9% IV 1,000 mL 1,000 mL, Rate: 100 ml/hr, Infuse over: 10 hr, Route: IV, Dosing Weight 72.72 kg , Total Volume: 1,000, Start date: 06/16/14 22:03:00, Duration: 30 day, Stop date: 07/16/14 22:02:00 Start Date: 06/16/14 Stop Date: 06/17/14 Status: Discontinuedsucralfate 1 g oral tablet 1 gm=1 tab, PO, QID-Before Meals, # 120 tab, 0 Refill(s) Start Date: 06/17/14 Status: Orderedtopiramate 50 mg, 2 tab, Route: PO, Drug form: TAB, BID, Dosing Weight 72.72, kg, Start date: 06/17/14 6:00:00,Duration: 30 day, Stop date: 07/16/14 18:00:00 Notes: (Same As: Topamax)"Do Not Crush" Start Date: 06/17/14 Stop Date: 06/21/14 Status: Discontinuedtopiramate 50 mg oral tablet 50 mg=1 tab, PO, BID, # 60 tab, 0 Refill(s) Start Date: 06/16/14 Status: OrderedTylenol 650 mg, 2 tab, Route: PO, Drug form: TAB, Q4H, Dosing Weight 72.727, kg, PRN Pain/Fever, Priority: Routine, Start date: 06/16/14 18:56:00, Duration: 30 day, Stop date: 07/16/14 18:55:00, pain, fever Notes: Do not exceed 4 gm/day. (Same as: Tylenol) Start Date: 06/16/14 Stop Date: 06/21/14 Status: DiscontinuedZofran 4 mg, Route: IVP, Drug form: INJ, ONCE, Dosing Weight 72.727, kg, Priority: STAT , Start date: 06/16/14 15:50:00, Stop date: 06/16/14 15:50:00 Start Date: 06/16/14 Stop Date: 06/16/14 Status: CompletedZofran 4 mg, 2 mL, Route: IVP, Drug form: INJ, ONCE, Dosing Weight 72.727, kg, Priority : STAT, Start date: 06/16/14 15:44:00, Stop date: 06/16/14 15:44:00 Notes: (Same as: Zofran) Start Date: 06/16/14 Stop Date: 06/16/14 Status: CompletedZofran 4 mg, 2 mL, Route: IV, Drug form: INJ, Q4H, Dosing Weight 72.727, kg, PRN Nausea , Start date: 06/16/14 18:56:00, Duration: 30 day, Stop date: 07/16/14 18:55:00 Notes: (Same as: Zofran) Start Date: 06/16/14 Stop Date: 06/21/14 Status: Discontinued Results ELECTROLYTES Most recent to oldest 1 2 3 [Reference Range]: Sodium Lvl [135-145 mEq/L] 136 mEq/L 138 mEq/L 138 mEq/L (06/19/14 5:25 AM) (06/18/14 12:46 PM) (06/18/14 7:50 AM) Potassium Lvl [3.5-5.1 4.7 mEq/L 1 3.7 mEq/L 3.8 mEq/L mEq/L] (06/19/14 5:25 AM) (06/18/14 12:46 PM) (06/18/14 7:50 AM) Chloride Lvl [95-109 mEq/L] 107 mEq/L 105 mEq/L 103 mEq/L (06/19/14 5:25 AM) (06/18/14 12:46 PM) (06/18/14 7:50 AM) CO2 [24-32 mEq/L] 25 mEq/L 27 mEq/L 27 mEq/L (06/19/14 5:25 AM) (06/18/14 12:46 PM) (06/18/14 7:50 AM) AGAP [10.0-20.0 mEq/L] 8.7 mEq/L 9.7 mEq/L 11.8 mEq/L *LOW* *LOW* (06/18/14 7:50 AM) (06/19/14 5:25 AM) (06/18/14 12:46 PM) 1Result Comment: Specimen Slightly Hemolyzed.CHEM PANEL Most recent to oldest 1 2 3 [Reference Range]: Creatinine Lvl [0.5-1.4 0.9 mg/dL 0.9 mg/dL 0.9 mg/dL mg/dL] (06/19/14 5:25 AM) (06/18/14 12:46 PM) (06/18/14 7:50 AM) eGFR 84 mL/min/1.73m2 2 84 mL/min/1.73m2 3 84 mL/min/1.73m2 4 *NA* *NA* *NA* (06/19/14 5:25 AM) (06/18/14 12:46 PM) (06/18/14 7:50 AM) BUN [7-22 mg/dL] 8 mg/dL 9 mg/dL 9 mg/dL (06/19/14 5:25 AM) (06/18/14 12:46 PM) (06/18/14 7:50 AM) B/C Ratio [6-25] 10 11 12 (06/18/14 7:50 AM) (06/17/14 8:55 AM) (06/16/14 2:14 PM) Glucose Lvl [70-99 mg/dL] 85 mg/dL 5 79 mg/dL 6 70 mg/dL 7 (06/19/14 5:25 AM) (06/18/14 12:46 PM) (06/18/14 7:50 AM) Total Protein [6.4-8.4 g/dL] 6.3 g/dL 7.1 g/dL 7.1 g/dL *LOW* (06/17/14 8:55 AM) (06/16/14 2:14 PM) (06/18/14 7:50 AM) Albumin Lvl [3.5-5.0 g/dL] 2.9 g/dL 3.2 g/dL 3.3 g/dL *LOW* *LOW* *LOW* (06/18/14 7:50 AM) (06/17/14 8:55 AM) (06/16/14 2:14 PM) Globulin [2.0-4.0 g/dL] 3.4 g/dL 3.9 g/dL 3.8 g/dL (06/18/14 7:50 AM) (06/17/14 8:55 AM) (06/16/14 2:14 PM) A/G Ratio [0.7-1.6] 0.9 0.8 0.9 (06/18/14 7:50 AM) (06/17/14 8:55 AM) (06/16/14 2:14 PM) Calcium Lvl [8.5-10.5 mg/dL] 8.5 mg/dL 8.5 mg/dL 8.5 mg/dL (06/19/14 5:25 AM) (06/18/14 12:46 PM) (06/18/14 7:50 AM) ALT [0-65 unit/L] 22 unit/L 29 unit/L 33 unit/L (06/18/14 7:50 AM) (06/17/14 8:55 AM) (06/16/14 2:14 PM) AST [0-37 unit/L] 13 unit/L 15 unit/L 29 unit/L (06/18/14 7:50 AM) (06/17/14 8:55 AM) (06/16/14 2:14 PM) Alk Phos [39-136 unit/L] 119 unit/L 131 unit/L 136 unit/L (06/18/14 7:50 AM) (06/17/14 8:55 AM) (06/16/14 2:14 PM) Bili Total [0.2-1.3 mg/dL] 0.3 mg/dL 0.2 mg/dL 0.2 mg/dL (06/18/14 7:50 AM) (06/17/14 8:55 AM) (06/16/14 2:14 PM) Lipase Lvl [73-393 unit/L] 111 unit/L (06/16/14 2:14 PM) Lactic Acid Lvl [0.5-2.2 2.4 mMol/L mMol/L] *HI* (06/17/14 8:55 AM) Procalcitonin Lvl [0.00-0.10 <0.05 ng/mL ng/mL] (06/17/14 8:55 AM) 2Result Comment: The eGFR is calculated using [...] eGFR should be multiplied by the estimated BMI.4Result Comment: The eGFR is calculated using the [...] eGFR should be multiplied by the estimated BMI.5Interpretive Data: Adult reference range values reflect the clinical guidelines of the [place] [employer].6Interpretive Data: Adult reference range values reflect the clinical guidelines of the [place] [employer].7Interpretive Data: Adult reference range values reflect the clinical guidelines of the [place] [employer].CARDIAC ENZYMES Most recent to oldest [Reference Range]: 1 2 3 Total CK [12-191 unit/L] 41 unit/L 39 unit/L (06/17/14 8:55 AM) (06/17/14 12:45 AM) Troponin-I [0.00-0.40 ng/mL] <0.02 ng/mL <0.02 ng/mL (06/17/14 8:55 AM) (06/17/14 12:45 AM) URINE AND STOOL Most recent to oldest [Reference Range]: 1 2 3 UA Turbidity [Clear] Clear (06/16/14 2:14 PM) UA Color [Yellow] Yellow *NA* (06/16/14 2:14 PM) UA pH [5.0-8.0] 7.5 (06/16/14 2:14 PM) UA Spec Grav [<=1.030] 1.010 (06/16/14 2:14 PM) UA Glucose [Negative mg/dL] Negative mg/dL (06/16/14 2:14 PM) UA Blood [Negative] Negative (06/16/14 2:14 PM) UA Ketones [Negative mg/dL] Negative mg/dL *NA* (06/16/14 2:14 PM) UA Protein [Negative mg/dL] Negative mg/dL (06/16/14 2:14 PM) UA Urobilinogen [0.1-1.0 EU/dL] 0.2 EU/dL (06/16/14 2:14 PM) UA Bili [Negative] Negative *NA* (06/16/14 2:14 PM) UA Leuk Est [Negative] Negative (06/16/14 2:14 PM) UA Nitrite [Negative] Negative (06/16/14 2:14 PM) UA Bacteria [None Seen] None Seen (06/16/14 2:14 PM) UA Sq Epi [Few] None Seen (06/16/14 2:14 PM) Occult Bld Stl [Negative] Negative (06/19/14 8:00 PM) IMMUNOLOGY Most recent to oldest [Reference Range]: 1 2 3 HIV 1/2 Ab [Negative] Negative *NA* (06/17/14 8:55 AM) Hep Bs Ag [Negative] Negative *NA* (06/17/14 8:55 AM) Hep B Core IgM [Negative] Negative *NA* (06/17/14 8:55 AM) Hep A IgM [Negative] Negative *NA* (06/17/14 8:55 AM) Hep C Ab [Negative] Negative *NA* (06/17/14 8:55 AM) HEMATOLOGY Most recent to oldest 1 2 3 [Reference Range]: WBC [3.7-10.4 K/CMM] 12.8 K/CMM 10.3 K/CMM 12.9 K/CMM *HI* (06/19/14 5:25 AM) *HI* (06/21/14 5:30 AM) (06/18/14 12:46 PM) RBC [4.20-5.40 M/CMM] 3.69 M/CMM 3.92 M/CMM 3.78 M/CMM *LOW* *LOW* *LOW* (06/21/14 5:30 AM) (06/19/14 5:25 AM) (06/18/14 12:46 PM) Hgb [12.0-16.0 g/dL] 10.5 g/dL 11.4 g/dL 10.7 g/dL *LOW* *LOW* *LOW* (06/21/14 5:30 AM) (06/19/14 5:25 AM) (06/18/14 12:46 PM) Hct [36.0-48.0 %] 32.4 % 33.9 % 32.8 % *LOW* *LOW* *LOW* (06/21/14 5:30 AM) (06/19/14 5:25 AM) (06/18/14 12:46 PM) MCV [80.0-98.0 fL] 87.7 fL 86.4 fL 87.0 fL (06/21/14 5:30 AM) (06/19/14 5:25 AM) (06/18/14 12:46 PM) MCH [27.0-31.0 pg] 28.4 pg 29.2 pg 28.2 pg (06/21/14 5:30 AM) (06/19/14 5:25 AM) (06/18/14 12:46 PM) MCHC [32.0-36.0 g/dL] 32.4 g/dL 33.8 g/dL 32.5 g/dL (06/21/14 5:30 AM) (06/19/14 5:25 AM) (06/18/14 12:46 PM) RDW [11.5-14.5 %] 14.3 % 14.0 % 14.4 % (06/21/14 5:30 AM) (06/19/14 5:25 AM) (06/18/14 12:46 PM) Platelet [133-450 K/CMM] 342 K/CMM 364 K/CMM 339 K/CMM (06/21/14 5:30 AM) (06/19/14 5:25 AM) (06/18/14 12:46 PM) MPV [7.4-10.4 fL] 7.7 fL 7.5 fL 7.6 fL (06/21/14 5:30 AM) (06/19/14 5:25 AM) (06/18/14 12:46 PM) Segs [45.0-75.0 %] 50.8 % 49.7 % 58.5 % (06/21/14 5:30 AM) (06/19/14 5:25 AM) (06/18/14 12:46 PM) Lymphocytes [20.0-40.0 %] 36.9 % 36.3 % 30.5 % (06/21/14 5:30 AM) (06/19/14 5:25 AM) (06/18/14 12:46 PM) Monocytes [2.0-12.0 %] 10.1 % 11.5 % 8.6 % (06/21/14 5:30 AM) (06/19/14 5:25 AM) (06/18/14 12:46 PM) Eosinophils [0.0-4.0 %] 1.7 % 2.1 % 1.7 % (06/21/14 5:30 AM) (06/19/14 5:25 AM) (06/18/14 12:46 PM) Basophils [0.0-1.0 %] 0.5 % 0.4 % 0.7 % (06/21/14 5:30 AM) (06/19/14 5:25 AM) (06/18/14 12:46 PM) Segs-Bands # [1.5-8.1 6.5 K/CMM 5.1 K/CMM 7.5 K/CMM K/CMM] (06/21/14 5:30 AM) (06/19/14 5:25 AM) (06/18/14 12:46 PM) Lymphocytes # [1.0-5.5 4.7 K/CMM 3.7 K/CMM 3.9 K/CMM K/CMM] (06/21/14 5:30 AM) (06/19/14 5:25 AM) (06/18/14 12:46 PM) Monocytes # [0.0-0.8 1.3 K/CMM 1.2 K/CMM 1.1 K/CMM K/CMM] *HI* *HI* *HI* (06/21/14 5:30 AM) (06/19/14 5:25 AM) (06/18/14 12:46 PM) Eosinophils # [0.0-0.5 0.2 K/CMM 0.2 K/CMM 0.2 K/CMM K/CMM] (06/21/14 5:30 AM) (06/19/14 5:25 AM) (06/18/14 12:46 PM) Basophils # [0.0-0.2 0.1 K/CMM 0.1 K/CMM 0.1 K/CMM K/CMM] (06/21/14 5:30 AM) (06/18/14 12:46 PM) (06/17/14 8:55 AM) RBC Morph Normal Normal Normal (06/21/14 5:30 AM) (06/18/14 12:46 PM) (06/17/14 8:55 AM) Plt Morph Normal Normal Normal (06/21/14 5:30 AM) (06/18/14 12:46 PM) (06/17/14 8:55 AM) PT [12.0-14.7 seconds] 13.2 seconds (06/16/14 2:14 PM) INR [0.85-1.17] 1.00 8 (06/16/14 2:14 PM) PTT [22.9-35.8 seconds] 26.4 seconds 9 (06/16/14 2:14 PM) 8Interpretive Data: RECOMMENDED RANGES FOR PROTIME INR: 2.0-3.0 for most medical and surgical thromboembolic states. 2.5-3.5 for artificial heart valves and recurrent embolism. INR SHOULD BE USED ONLY FOR PATIENTS ON STABLE ANTICOAGULANT THERAPY.9Interpretive Data: Heparin Therapeutic Range: 57 - 92 Seconds Medications Administered During Your Visit No data available for this section Immunizations No data available for this section Procedures Procedure Type Body Site Date of Procedure Related Diagnosis Fusion of cervicothoracic joint by posterior approach Social History Social History Type Response Substance Abuse Drug Cessation Education Provided No Employment/School Hazardous equipment operation: No Alcohol Use: Current, Type: Wine, Type: Liquor, Frequency: 1-2 times per year, Previous treatment: None, Concerns about alcohol use in household: No Smoking Status Former smoker, Type: Cigarettes, Exposure to Tobacco Smoke None , Cigarette Smoking Last 365 Days Yes, Reg Smoking Cessation Counseling Yes
--- OUTSIDE RECORDS SUMMARY | 2018-10-23 12:15 | XMS REPORT | Summary of Care ---
:1960 Author Care Team Providers Name Role Phone Dread Stein III Primary Care Physician Encounter [facility] [email or web address](FIN) [id number] Date(s): 06/06/14 - 06/06/14 [facility] [id number] [place] [address] - [facility] Discharge Diagnosis: Abdominal pain Discharge Disposition: Home Physician Attending: Yecenia Hsu DO Reason for Visit ABDOMINAL PAIN Vital Signs Most recent to oldest [Reference Range]: 1 2 Height 160.02 cm (06/06/14 2:21 PM) Temperature Oral [96.4-99.1 DegF] 98.4 DegF (06/06/14 2:21 PM) Systolic Blood Pressure [90-140 mmHg] 128 mmHg 105 mmHg (06/06/14 5:55 PM) (06/06/14 2:21 PM) Diastolic Blood Pressure [60-90 mmHg] 79 mmHg 71 mmHg (06/06/14 5:55 PM) (06/06/14 2:21 PM) Respiratory Rate [14-20 BRMIN] 18 BRMIN 17 BRMIN (06/06/14 5:55 PM) (06/06/14 2:21 PM) Peripheral Pulse Rate [60-100 bpm] 77 bpm 94 bpm (06/06/14 5:55 PM) (06/06/14 2:21 PM) Weight 72.727 kg (06/06/14 2:21 PM) Body Mass Index 28.4 m2 (06/06/14 2:21 PM) Problem List Condition Effective Dates Status Health Status Informant Anxiety(Confirmed) 09/07/12 Active Asthma(Confirmed) Active ASTHMA(Confirmed) Resolved CAD - Coronary artery Active disease(Confirmed) Chest pain(Confirmed) 09/01/12 Active Gastritis(Confirmed) Active GERD - Gastro-esophageal reflux Active disease(Confirmed) Heartburn(Confirmed) Active HTN - Hypertension(Confirmed) Resolved HTN - Hypertension(Confirmed) Active Mitral valve prolapse(Confirmed) Active Pancreatitis(Confirmed) Active Allergies, Adverse Reactions, Alerts Substance Reaction Severity Status Benadryl hives Active ibuprofen Active Kenalog Kenalog Active levabid hives Active penicillins Active Talwin unfunctional Active Medications morphine Sulfate 4 mg, Route: IVP, Drug form: INJ, ONCE, Dosing Weight 72.727, kg, Priority: STAT , Start date: 06/06/14 15:41:00, Stop date: 06/06/14 15:41:00 Start Date: 06/06/14 Stop Date: 06/06/14 Status: Completedmorphine Sulfate 2 mg, Route: IVP, Drug form: INJ, ONCE, Dosing Weight 72.727, kg, Priority: STAT , Start date: 06/06/14 18:06:00, Stop date: 06/06/14 18:06:00 Start Date: 06/06/14 Stop Date: 06/06/14 Status: CompletedOmnipaque 300 100 mL, 100 ml/hr, Route: IVPB, Drug Form: SOLN, ONCE, Start date: 06/06/14 16: 53:00, Stop date: 06/06/14 16:53:00 Notes: (Same as:Omnipaque 300). Start Date: 06/06/14 Stop Date: 06/06/14 Status: Orderedondansetron 4 mg, 2 mL, Route: IVP, Drug form: INJ, ONCE, Dosing Weight 72.727, kg, Priority : STAT, Start date: 06/06/14 14:49:00, Stop date: 06/06/14 14:49:00 Notes: (Same as: Zofran) Start Date: 06/06/14 Stop Date: 06/06/14 Status: CompletedPhenergan 12.5 mg, Route: IM, ONCE, Dosing Weight 72.727, kg, Priority: STAT, Start date: 06/06/14 16:02:00, Stop date: 06/06/14 16:02:00 Start Date: 06/06/14 Stop Date: 06/06/14 Status: CompletedSaline Flush 0.9% 5 mL, Route: IVP, Drug Form: INJ, Dosing Weight 72.727, kg, PRN, PRN Line Flush , Start date: 06/06/14 14:49:00, Duration: 24 hr, Stop date: 06/07/14 14:48:00 Notes: (Same as: BD Posiflush) Start Date: 06/06/14 Stop Date: 06/06/14 Status: DiscontinuedSodium Chloride 0.9% (Bolus) IV 1,000 mL, 1000 ml/hr, Infuse Over: 1 hr, Route: IV, 1,000, Drug form: INJ, ONCE , Priority: STAT, Dosing Weight 72.727 kg, Start date: 06/06/14 14:49:00, Duration: 1 doses or times, Stop date: 06/06/14 14:49:00 Start Date: 06/06/14 Stop Date: 06/06/14 Status: Completed Results ELECTROLYTES Most recent to oldest [Reference Range]: 1 Sodium Lvl [135-145 mEq/L] 141 mEq/L (06/06/14 3:35 PM) Potassium Lvl [3.5-5.1 mEq/L] 3.7 mEq/L (06/06/14 3:35 PM) Chloride Lvl [95-109 mEq/L] 107 mEq/L (06/06/14 3:35 PM) CO2 [24-32 mEq/L] 28 mEq/L (06/06/14 3:35 PM) AGAP [10.0-20.0 mEq/L] 9.7 mEq/L *LOW* (06/06/14 3:35 PM) CHEM PANEL Most recent to oldest [Reference Range]: 1 Creatinine Lvl [0.5-1.4 mg/dL] 0.9 mg/dL (06/06/14 3:35 PM) eGFR 84 mL/min/1.73m2 1 *NA* (06/06/14 3:35 PM) BUN [7-22 mg/dL] 11 mg/dL (06/06/14 3:35 PM) B/C Ratio [6-25] 12 (06/06/14 3:35 PM) Glucose Lvl [70-99 mg/dL] 98 mg/dL 2 (06/06/14 3:35 PM) Total Protein [6.4-8.4 g/dL] 6.8 g/dL (06/06/14 3:35 PM) Albumin Lvl [3.5-5.0 g/dL] 2.9 g/dL *LOW* (06/06/14 3:35 PM) Globulin [2.0-4.0 g/dL] 3.9 g/dL (06/06/14 3:35 PM) A/G Ratio [0.7-1.6] 0.7 (06/06/14 3:35 PM) Calcium Lvl [8.5-10.5 mg/dL] 8.5 mg/dL (06/06/14 3:35 PM) ALT [0-65 unit/L] 20 unit/L (06/06/14 3:35 PM) AST [0-37 unit/L] 12 unit/L (06/06/14 3:35 PM) Alk Phos [39-136 unit/L] 141 unit/L *HI* (06/06/14 3:35 PM) Bili Total [0.2-1.3 mg/dL] 0.2 mg/dL (06/06/14 3:35 PM) Amylase Lvl [25-115 unit/L] 82 unit/L (06/06/14 3:35 PM) Lipase Lvl [73-393 unit/L] 187 unit/L (06/06/14 3:35 PM) 1Result Comment: The eGFR is calculated using [...] eGFR should be multiplied by the estimated BMI.2Interpretive Data: Adult reference range values reflect the clinical guidelines of the [place] [employer].URINE AND STOOL Most recent to oldest [Reference Range]: 1 UA Turbidity [Clear] Clear (06/06/14 4:40 PM) UA Color [Yellow] Yellow *NA* (06/06/14 4:40 PM) UA pH [5.0-8.0] 8.0 (06/06/14 4:40 PM) UA Spec Grav [<=1.030] 1.010 (06/06/14 4:40 PM) UA Glucose [Negative mg/dL] Negative mg/dL (06/06/14 4:40 PM) UA Blood [Negative] Negative (06/06/14 4:40 PM) UA Ketones [Negative mg/dL] Negative mg/dL *NA* (06/06/14 4:40 PM) UA Protein [Negative mg/dL] Negative mg/dL (06/06/14 4:40 PM) UA Urobilinogen [0.1-1.0 EU/dL] 0.2 EU/dL (06/06/14 4:40 PM) UA Bili [Negative] Negative *NA* (06/06/14 4:40 PM) UA Leuk Est [Negative] Negative (06/06/14 4:40 PM) UA Nitrite [Negative] Negative (06/06/14 4:40 PM) UA WBC [None Seen /HPF] 0-2 /HPF (06/06/14 4:40 PM) UA RBC [0-2 /HPF] 0-2 /HPF (06/06/14 4:40 PM) UA Bacteria [None Seen /HPF] Occasional /HPF (06/06/14 4:40 PM) UA Sq Epi [Few /LPF] Occasional /LPF (06/06/14 4:40 PM) UA Mucus [None Seen] None Seen (06/06/14 4:40 PM) Micro? Performed (06/06/14 4:40 PM) HEMATOLOGY Most recent to oldest [Reference Range]: 1 WBC [3.7-10.4 K/CMM] 15.2 K/CMM *HI* (06/06/14 3:35 PM) RBC [4.20-5.40 M/CMM] 3.86 M/CMM *LOW* (06/06/14 3:35 PM) Hgb [12.0-16.0 g/dL] 11.0 g/dL *LOW* (06/06/14 3:35 PM) Hct [36.0-48.0 %] 33.2 % *LOW* (06/06/14 3:35 PM) MCV [81.0-99.0 fL] 86.0 fL (06/06/14 3:35 PM) MCH [27.0-31.0 pg] 28.4 pg (06/06/14 3:35 PM) MCHC [32.0-36.0 g/dL] 33.0 g/dL (06/06/14 3:35 PM) RDW [11.5-14.5 %] 14.8 % *HI* (06/06/14 3:35 PM) Platelet [133-450 K/CMM] 377 K/CMM (06/06/14 3:35 PM) MPV [7.4-10.4 fL] 7.2 fL *LOW* (06/06/14 3:35 PM) Segs [45.0-75.0 %] 61.5 % (06/06/14 3:35 PM) Lymphocytes [20.0-40.0 %] 30.1 % (06/06/14 3:35 PM) Monocytes [2.0-12.0 %] 6.0 % (06/06/14 3:35 PM) Eosinophils [0.0-4.0 %] 0.8 % (06/06/14 3:35 PM) Basophils [0.0-1.0 %] 1.6 % *HI* (06/06/14 3:35 PM) Segs-Bands # [1.5-8.1 K/CMM] 9.3 K/CMM *HI* (06/06/14 3:35 PM) Lymphocytes # [1.0-5.5 K/CMM] 4.6 K/CMM (06/06/14 3:35 PM) Monocytes # [0.0-0.8 K/CMM] 0.9 K/CMM *HI* (06/06/14 3:35 PM) Eosinophils # [0.0-0.5 K/CMM] 0.1 K/CMM (06/06/14 3:35 PM) Basophils # [0.0-0.2 K/CMM] 0.2 K/CMM (06/06/14 3:35 PM) Anisocyte [None Seen] 1+ *ABN* (06/06/14 3:35 PM) Tear Cell [None Seen] Slight *ABN* (06/06/14 3:35 PM) Elliptocyte [None Seen] Slight *ABN* (06/06/14 3:35 PM) Giant Plt [None Seen] Slight *ABN* (06/06/14 3:35 PM) Large Plt [None Seen] Slight *ABN* (06/06/14 3:35 PM) Medications Administered During Your Visit No data available for this section Immunizations No data available for this section Social History Social History Type Response Substance [...]
--- OUTSIDE RECORDS SUMMARY | 2018-10-23 12:15 | XMS REPORT | Summary of Care ---
:1960 Author Care Team Providers Name Role Phone Dread Stein III Primary Care Physician Encounter HQ Ye_devon(FIN) [id number] Date(s): 10/28/14 - 10/30/14 [facility] [id number] [place] [address] - [facility] Discharge Diagnosis: Abdominal pain Discharge Disposition: Home Physician Attending: Chapin Nova MD Reason for Visit VOMITING/ ABD PAIN Vital Signs Most recent to oldest 1 2 3 [Reference Range]: Height 157.48 cm 165.1 cm (10/29/14 1:00 AM) (10/28/14 5:38 PM) Temperature Oral [96.4-99.1 98 DegF 98.1 DegF 97.8 DegF DegF] (10/30/14 11:13 AM) (10/30/14 9:56 AM) (10/30/14 4:23 AM) Systolic Blood Pressure 142 mmHg 129 mmHg 123 mmHg [90-140 mmHg] *HI* (10/30/14 12:04 PM) (10/30/14 11:34 AM) (10/30/14 12:34 PM) Diastolic Blood Pressure 87 mmHg 83 mmHg 79 mmHg [60-90 mmHg] (10/30/14 12:34 PM) (10/30/14 12:04 PM) (10/30/14 11:34 AM) Respiratory Rate [14-20 20 BRMIN 20 BRMIN 20 BRMIN BRMIN] (10/30/14 12:34 PM) (10/30/14 12:04 PM) (10/30/14 11:34 AM) Peripheral Pulse Rate 82 bpm 80 bpm 82 bpm [60-100 bpm] (10/30/14 12:34 PM) (10/30/14 12:04 PM) (10/30/14 11:34 AM) Weight 89.545 kg 89.091 kg (10/29/14 1:00 AM) (10/28/14 5:38 PM) Body Mass Index 36.11 m2 32.68 m2 (10/29/14 1:00 AM) (10/28/14 5:38 PM) Problem List Condition Effective Dates Status [...] Active penicillins Active Talwin unfunctional Active Medications albuterol 0.083% inhalation solution 2.5 mg, 3.01 mL, Route: NEB, Drug form: SOLN, Q6H, Dosing Weight 89.545, kg, Start date: 10/29/14 18:00:00, Duration: 30 day, Stop date: 11/28/14 12:00:00 Notes: SEE RT DOCUMENTATION (Same as: Zander) Start Date: 10/29/14 Stop Date: 10/30/14 Status: DiscontinuedALPRAZOLam 0.25 mg, 1 tab, Route: PO, Drug form: TAB, Bedtime, Dosing Weight 89.545, kg, PRN as needed for anxiety, Start date: 10/29/14 14:53:00, Stop date: 11/28/14 14 :52:00 Notes: With food or milk(Same as: Xanax) Start Date: 10/29/14 Stop Date: 10/30/14 Status: Discontinuedamitriptyline 100 mg, 4 tab, Route: PO, Drug form: TAB, Bedtime, Dosing Weight 89.545, kg, Start date: 10/29/14 21:00:00, Duration: 30 day, Stop date: 11/27/14 21:00:00 Notes: (Same as: Elavil) Start Date: 10/29/14 Stop Date: 10/30/14 Status: Discontinuedamitriptyline 100 mg oral tablet 100 mg=1 tab, PO, Bedtime, # 30 tab, 0 Refill(s) Start Date: 10/29/14 Status: OrderedcarBAMazepine 400 mg, PO, QAM, 0 Refill(s) Start Date: 10/28/14 Status: OrderedcarBAMazepine 200 mg, 1 tab, Route: PO, Drug form: TAB, QNoon, Dosing Weight 89.545, kg, Start date: 10/30/14 12:00:00, Duration: 30 day, Stop date: 11/28/14 12:00:00 Notes: With food. (Same As: Tegretol) Start Date: 10/30/14 Stop Date: 10/30/14 Status: DiscontinuedcarBAMazepine 400 mg, 2 tab, Route: PO, Drug form: TAB, QPM, Dosing Weight 89.545, kg, Start date: 10/29/14 17:00:00, Duration: 30 day, Stop date: 11/27/14 17:00:00 Notes: With food. (Same As: Tegretol) Start Date: 10/29/14 Stop Date: 10/30/14 Status: DiscontinuedcarBAMazepine 400 mg, 2 tab, Route: PO, Drug form: TAB, QAM, Dosing Weight 89.545, kg, Start date: 10/30/14 9:00:00, Duration: 30 day, Stop date: 11/28/14 9:00:00 Notes: With food. (Same As: Tegretol) Start Date: 10/30/14 Stop Date: 10/30/14 Status: DiscontinuedcarBAMazepine 200 mg oral tablet 400 mg=2 tab, PO, QPM, # 120 tab, 0 Refill(s) Start Date: 10/29/14 Stop Date: 11/28/14 Status: Orderedcarvedilol 3.125 mg, 1 tab, Route: PO, Drug form: TAB, Daily, Dosing Weight 89.545, kg, Start date: 10/30/14 9:00:00, Duration: 30 day, Stop date: 11/28/14 9:00:00 Notes: Give with food. (Same As: Coreg) Start Date: 10/30/14 Stop Date: 10/30/14 Status: DiscontinuedCreon 24,000 units oral delayed release capsule 1 cap, Route: PO, Drug Form: DRC, Dosing Weight 89.545, kg, TID-Meals, Start date: 10/29/14 17:00:00, Duration: 30 day, Stop date: 11/28/14 12:00:00 Notes: Same as : Lipase 91086 Units, Amylase 06933 units, Protease 82305 units Start Date: 10/29/14 Stop Date: 10/30/14 Status: Discontinueddicyclomine 10 mg, 1 cap, Route: PO, Drug form: CAP, TID, Dosing Weight 89.545, kg, Start date: 10/29/14 17:00:00, Duration: 30 day, Stop date: 11/28/14 13:00:00 Notes: (Same as: Bentyl) Start Date: 10/29/14 Stop Date: 10/30/14 Status: Discontinueddicyclomine 10 mg oral capsule 10 mg=1 cap, PO, TID, # 40 cap, 0 Refill(s) Start Date: 10/29/14 Stop Date: 11/08/14 Status: OrderedFleet Enema 133 mL, Route: WA, Drug Form: GREG, Dosing Weight 89.545, kg, ONCE, Start date: 10/30/14 3:45:00, Stop date: 10/30/14 3:45:00 Start Date: 10/30/14 Stop Date: 10/30/14 Status: Completedflumazenil 0.1 mg, 1 mL, Route: IVP, Drug form: INJ, Q5Min, Dosing Weight 89.545, kg, PRN Other -See Comment, Start date: 10/30/14 8:23:00, Duration: 30 day, Stop date: 11/29/14 8:22:00 Notes: (Same as: Romazicon) Start Date: 10/30/14 Stop Date: 10/30/14 Status: Discontinuedflumazenil 0.2 mg, 2 mL, Route: IVP, Drug form: INJ, PRN, Dosing Weight 89.545, kg, PRN Other -See Comment, Start date: 10/30/14 8:23:00, Duration: 1 doses or times, Stop date: Limited # of times Notes: (Same as: Romazicon) Start Date: 10/30/14 Stop Date: 10/30/14 Status: Discontinuedgabapentin 400 mg, TID, 0 Refill(s) Start Date: 10/28/14 Status: Orderedgabapentin 400 mg, 1 cap, Route: PO, Drug form: CAP, TID, Dosing Weight 89.545, kg, Start date: 10/29/14 18:00:00, Duration: 30 day, Stop date: 11/28/14 12:00:00 Notes: (Same as: Neurontin) Start Date: 10/29/14 Stop Date: 10/30/14 Status: DiscontinuedGoLYTELY 4,000 ml, Route: PO, Drug Form: PDR/REC, Dosing Weight 89.545, kg, ONCE, Start date: 10/29/14 14:25:00, Duration: 1 doses or times, Stop date: 10/29/14 14:25: 00 Notes: (polyethylene glycol electrolyte solution 4 Liter bottle) (Same as: Verna Bradford) Start Date: 10/29/14 Stop Date: 10/29/14 Status: CompletedhydrOXYzine hydrochloride 25 mg oral tablet 25 mg, 1 tab, Route: PO, Drug form: TAB, TID, Dosing Weight 89.545, kg, PRN as needed for itching, Start date: 10/29/14 14:53:00, Stop date: 11/28/14 14:52:00 Notes: (Same as: Atarax) Avoid alcohol. Start Date: 10/29/14 Stop Date: 10/30/14 Status: Discontinuedlactulose 10 g/15 mL oral syrup 20 gm, 30 mL, Route: PO, Drug Form: SYRP, Dosing Weight 89.545, kg, Daily, Start date: 10/30/14 9:00:00, Duration: 30 day, Stop date: 11/28/14 9:00:00 Notes: (Same as:Chronulac) Start Date: 10/30/14 Stop Date: 10/30/14 Status: Discontinuedlosartan 100 mg, 2 tab, Route: PO, Drug form: TAB, QAM, Dosing Weight 89.545, kg, Start date: 10/30/14 9:00:00, Duration: 30 day, Stop date: 11/28/14 9:00:00 Notes: (Same as: Pete) Start Date: 10/30/14 Stop Date: 10/30/14 Status: DiscontinuedMaalox Advanced Regular Strength SUSP 20 mL, Route: PO, Drug Form: SUSP, Dosing Weight 89.091, kg, QID, PRN Heartburn , NOW, Start date: 10/28/14 23:54:00, Duration: 30 day, Stop date: 11/27/14 23: 53:00 Notes: (aluminum hydroxide-magnesium hyd-simethicone [id number]/5ml 30 ml ud HERNAN) Start Date: 10/28/14 Stop Date: 10/30/14 Status: Discontinuedmeclizine 12.5 mg, 1 tab, Route: PO, Drug form: TAB, QID, Dosing Weight 89.545, kg, PRN as needed for dizziness, Start date: 10/29/14 14:54:00, Stop date: 11/28/14 14: 53:00 Notes: (Same as: Antivert) Start Date: 10/29/14 Stop Date: 10/30/14 Status: Discontinuedmetoclopramide 10 mg oral tablet 10 mg, 1 tab, Route: PO, Drug form: TAB, BID, Dosing Weight 89.545, kg, PRN Nausea, Start date: 10/29/14 14:54:00, Stop date: 11/28/14 14:53:00 Notes: (Same as: Reglan) Take 30 min before meals Start Date: 10/29/14 Stop Date: 10/30/14 Status: Discontinuedmontelukast 10 mg, 1 tab, Route: PO, Drug form: TAB, QPM, Dosing Weight 89.545, kg, Start date: 10/29/14 17:00:00, Duration: 30 day, Stop date: 11/27/14 17:00:00 Notes: (Same as:Singulair) Start Date: 10/29/14 Stop Date: 10/30/14 Status: Discontinuedmorphine Sulfate 4 mg, 2 mL, Route: IVP, Drug form: INJ, ONCE, Dosing Weight 89.091, kg, Priority : STAT, Start date: 10/28/14 19:46:00, Stop date: 10/28/14 19:46:00 Notes: (Same as:MORPhine Sulfate) Start Date: 10/28/14 Stop Date: 10/28/14 Status: Completedmorphine Sulfate 2 mg, Route: IVP, Drug form: INJ, ONCE, Dosing Weight 89.091, kg, Priority: STAT , Start date: 10/28/14 22:06:00, Stop date: 10/28/14 22:06:00 Start Date: 10/28/14 Stop Date: 10/28/14 Status: Completedmorphine Sulfate 2 mg, 1 mL, Route: IVP, Drug form: INJ, Q3H, Dosing Weight 89.091, kg, PRN Pain Score 4-6, Start date: 10/28/14 23:49:00, Duration: 30 day, Stop date: 11/27/14 23:48:00 Notes: (Same as:MORPhine Sulfate) Start Date: 10/28/14 Stop Date: 10/30/14 Status: Discontinuedmorphine Sulfate 2 mg, 1 mL, Route: IVP, Drug form: INJ, Q3H, Dosing Weight 89.091, kg, PRN Pain Score 4-6, Start date: 10/28/14 23:15:00, Duration: 30 day, Stop date: 11/27/14 23:14:00 Notes: (Same as:MORPhine Sulfate) Start Date: 10/28/14 Stop Date: 10/30/14 Status: Discontinuedmorphine Sulfate 4 mg, Route: IVP, ONCE, Dosing Weight 89.091, kg, Priority: STAT, Start date: 18:09:00, Stop date: 10/28/14 18:09:00 Start Date: 10/28/14 Stop Date: 10/28/14 Status: Completednaloxone 0.1 mg, 0.25 mL, Route: IVP, Drug form: INJ, Q2MIN, Dosing Weight 89.545, kg, PRN Narcotic Reversal,Start date: 10/30/14 8:23:00, Duration: 4 doses or times, Stop date: Limited # of times Notes: Same as Narcan Start Date: 10/30/14 Stop Date: 10/30/14 Status: DiscontinuedNorco 10/325 oral tablet 1 tab, PO, Q6H, for pain, # 24 tab, 0 Refill(s) Start Date: 10/29/14 Stop Date: 11/04/14 Status: OrderedOmnipaque 300 100 mL, Route: IV, Drug Form: SOLN, ONCE, Start date: 10/28/14 19:53:00, Stop date: 10/28/14 19:53:00 Notes: (Same as:Omnipaque 300). Start Date: 10/28/14 Stop Date: 10/28/14 Status: Completedondansetron 8 mg, 4 mL, Route: IV, Drug form: INJ, Q8H, Dosing Weight 89.545, kg, Start date : 10/29/14 8:00:00, Duration: 30 day, Stop date: 11/28/14 0:00:00 Notes: (Same as: Zofran) Start Date: 10/29/14 Stop Date: 10/30/14 Status: Discontinuedondansetron 4 mg, 2 mL, Route: IVP, Drug form: INJ, Q4H, Dosing Weight 89.091, kg, PRN Nausea & Vomiting, Start date: 10/28/14 23:49:00, Duration: 30 day, Stop date: 11/27/14 23:48:00 Notes: (Same as: Zofran) Start Date: 10/28/14 Stop Date: 10/30/14 Status: Discontinuedondansetron 4 mg, 2 mL, Route: IVP, Drug form: INJ, Q8H, Dosing Weight 89.091, kg, PRN Nausea & Vomiting, Start date: 10/28/14 23:15:00, Duration: 30 day, Stop date: 11/27/14 23:14:00 Notes: (Same as: Zofran) Start Date: 10/28/14 Stop Date: 10/30/14 Status: Discontinuedondansetron 4 mg, Route: IVP, ONCE, Dosing Weight 89.091, kg, Priority: STAT, Start date: 18:09:00, Stop date: 10/28/14 18:09:00 Start Date: 10/28/14 Stop Date: 10/28/14 Status: CompletedPhenergan 25 mg, 1 mL, Route: IM, Drug form: INJ, Q6H, Dosing Weight 89.091, kg, PRN as needed for nausea/vomiting, Start date: 10/28/14 23:15:00, Duration: 30 day, Stop date: 11/27/14 23:14:00 Notes: Do not give IV push. (Same as: Phenergan) Start Date: 10/28/14 Stop Date: 10/30/14 Status: DiscontinuedPhenergan 25 mg, Route: IM, ONCE, Dosing Weight 89.091, kg, Priority: STAT, Start date: 20:16:00, Stop date: 10/28/14 20:16:00 Start Date: 10/28/14 Stop Date: 10/28/14 Status: Completedpotassium chloride 10 mEq oral tablet, extended release 10 mEq=1 tab, PO, Daily, # 10 tab, 0 Refill(s) Start Date: 10/29/14 Status: Orderedpromethazine 12.5 mg oral tablet 12.5 mg=1 tab, PO, TID, Nausea & Vomiting, # 60 tab, 0 Refill(s) Start Date: 10/29/14 Status: OrderedProtonix 40 mg, Route: IVP, Drug form: INJ, Before Dinner, Dosing Weight 89.091, kg, Priority: NOW, Start date: 10/28/14 23:52:00, Duration: 30 day, Stop date: 11/27 16:30:00 Notes: For IV push reconstitute with 10 ml 0.9% sodium chloride and push over 2 minutes. (Same as: Protonix) Start Date: 10/28/14 Stop Date: 10/30/14 Status: DiscontinuedProtonix 40 mg oral enteric coated tablet 40 mg=1 tab, PO, Daily, # 30 tab, 0 Refill(s) Start Date: 10/29/14 Status: OrderedReglan 10 mg, Route: IVP, Drug form: INJ, ONCE, Dosing Weight 89.091, kg, Priority: STAT, Start date: 10/28/14 22:05:00, Stop date: 10/28/14 22:05:00 Start Date: 10/28/14 Stop Date: 10/28/14 Status: CompletedSaline Flush 0.9% 10 ml, Route: IVP, Drug Form: INJ, Dosing Weight 89.091, kg, PRN, PRN Line Flush , Start date: 10/28/14 23:15:00, Duration: 30 day, Stop date: 11/27/14 23:14:00 Notes: (Same as: BD Posiflush) Start Date: 10/28/14 Stop Date: 10/30/14 Status: DiscontinuedSaline Flush 0.9% 10 mL, Route: IVP, Drug Form: INJ, Dosing Weight 89.091, kg, PRN, PRN Line Flush , Start date: 10/28/14 18:09:00, Duration: 30 day, Stop date: 11/27/14 18:08:00 Notes: (Same as: BD Posiflush) Start Date: 10/28/14 Stop Date: 10/30/14 Status: DiscontinuedSodium Chloride 0.9% (Bolus) IV 1,000 mL, Infuse Over: 1 hr, Route: IV, ONCE, Priority: STAT, Dosing Weight 89.091 kg, Start date: 10/28/14 18:09:00, Duration: 1 doses or times, Stop date : 10/28/14 18:09:00 Start Date: 10/28/14 Stop Date: 10/28/14 Status: CompletedSodium Chloride 0.9% IV 1,000 mL 1,000 mL, Rate: 125 ml/hr, Infuse over: 8 hr, Route: IV, Dosing Weight 89.091 kg , Total Volume: 1,000, Start date: 10/28/14 23:15:00, Duration: 30 day, Stop date: 11/27/14 23:14:00 Start Date: 10/28/14 Stop Date: 10/30/14 Status: Discontinuedsucralfate 1 gm, 1 tab, Route: PO, Drug form: TAB, QID, Dosing Weight 89.545, kg, Start date: 10/29/14 17:00:00, Duration: 30 day, Stop date: 11/28/14 13:00:00 Notes: May interfere w/enteral feeds - Take 1 hr before or 2 hr after antacids , dairy pdt, meals & minerals - On empty stomach. (Same As: Carafate) Start Date: 10/29/14 Stop Date: 10/30/14 Status: Discontinuedsucralfate 1 g oral tablet 1 gm=1 tab, PO, QID, # 120 tab, 0 Refill(s) Start Date: 10/29/14 Status: Orderedsucralfate 1 g/10 mL oral suspension 1 gm, 10 mL, Route: PO, Drug form: SUSP, QID, Dosing Weight 89.091, kg, Priority : NOW, Start date: 10/28/14 23:53:00, Duration: 30 day, Stop date: 11/27/14 21: 00:00 Notes: Enteral feeds may interfere with the absorption of this medication. Shake well. Take 1 hr before or 2 hrs after antacids, dairy pdt, minerals & meals. (Same As: Carafate) Start Date: 10/28/14 Stop Date: 10/30/14 Status: Discontinuedtopiramate 50 mg, 2 tab, Route: PO, Drug form: TAB, BID, Dosing Weight 89.545, kg, Start date: 10/29/14 18:00:00, Duration: 30 day, Stop date: 11/28/14 6:00:00 Notes: (Same As: Topamax)"Do Not Crush" Start Date: 10/29/14 Stop Date: 10/30/14 Status: Discontinuedtopiramate 50 mg, BID, 0 Refill(s) Start Date: 10/28/14 Status: OrderedZegerid 40 mg-1100 mg oral capsule 1 cap, PO, Daily, # 30 cap, 0 Refill(s) Start Date: 10/29/14 Status: OrderedZegerid 40 mg-1100 mg oral capsule 1 cap, Route: PO, Drug Form: CAP, Dosing Weight 89.545, kg, Daily, Start date: 10/30/14 9:00:00, Duration: 30 day, Stop date: 11/28/14 9:00:00 Start Date: 10/30/14 Stop Date: 10/30/14 Status: DeletedZEGERID 40MG-1100MG CAP ZEGERID 40MG-1100MG CAP, 1 cap, Drug form: MISC, Route: PO, Daily, 10/30/14 17: 00:00, Duration: 30 day, Stop date: 11/29/14 9:00:00 Start Date: 10/30/14 Stop Date: 10/30/14 Status: Discontinued Results ELECTROLYTES Most recent to oldest [Reference Range]: 1 2 Sodium Lvl [135-145 mEq/L] 142 mEq/L 140 mEq/L (10/29/14 7:27 AM) (10/28/14 7:02 PM) Potassium Lvl [3.5-5.1 mEq/L] 3.9 mEq/L 3.9 mEq/L (10/29/14 7:27 AM) (10/28/14 7:02 PM) Chloride Lvl [95-109 mEq/L] 112 mEq/L 112 mEq/L *HI* *HI* (10/29/14 7:27 AM) (10/28/14 7:02 PM) CO2 [24-32 mEq/L] 23 mEq/L 22 mEq/L *LOW* *LOW* (10/29/14 7:27 AM) (10/28/14 7:02 PM) AGAP [10.0-20.0 mEq/L] 10.9 mEq/L 9.9 mEq/L (10/29/14 7:27 AM) *LOW* (10/28/14 7:02 PM) CHEM PANEL Most recent to oldest [Reference Range]: 1 2 Creatinine Lvl [0.5-1.4 mg/dL] 0.9 mg/dL 0.8 mg/dL (10/29/14 7:27 AM) (10/28/14 7:02 PM) eGFR 84 mL/min/1.73m2 1 97 mL/min/1.73m2 2 *NA* *NA* (10/29/14 7:27 AM) (10/28/14 7:02 PM) BUN [7-22 mg/dL] 7 mg/dL 7 mg/dL (10/29/14 7:27 AM) (10/28/14 7:02 PM) B/C Ratio [6-25] 9 (10/28/14 7:02 PM) Glucose Lvl [70-99 mg/dL] 91 mg/dL 3 89 mg/dL 4 (10/29/14 7:27 AM) (10/28/14 7:02 PM) Total Protein [6.4-8.4 g/dL] 6.8 g/dL (10/28/14 7:02 PM) Albumin Lvl [3.5-5.0 g/dL] 2.8 g/dL *LOW* (10/28/14 7:02 PM) Globulin [2.0-4.0 g/dL] 4.0 g/dL (10/28/14 7:02 PM) A/G Ratio [0.7-1.6] 0.7 (10/28/14 7:02 PM) Calcium Lvl [8.5-10.5 mg/dL] 8.0 mg/dL 8.1 mg/dL *LOW* *LOW* (10/29/14 7:27 AM) (10/28/14 7:02 PM) ALT [0-65 unit/L] 20 unit/L (10/28/14:02 PM) AST [0-37 unit/L] 14 unit/L (10/28/14 7:02 PM) Alk Phos [39-136 unit/L] 183 unit/L *HI* (10/28/14:02 PM) Bili Total [0.2-1.3 mg/dL] <0.1 mg/dL *LOW* (10/28/14 7:02 PM) Amylase Lvl [25-115 unit/L] 83 unit/L (10/28/14 7:02 PM) Lipase Lvl [73-393 unit/L] 260 unit/L (10/28/14 7:02 PM) 1Result Comment: The eGFR is calculated [...] values reflect the clinical guidelines of the [employer] [place] [employer].4Interpretive Data: Adult reference range values reflect the clinical guidelines of the [place] [employer].CARDIAC ENZYMES Most recent to oldest [Reference Range]: 1 2 Total CK [12-191 unit/L] 116 unit/L (10/28/14 7:02 PM) CK MB [0.5-3.6 ng/mL] <0.5 ng/mL (10/28/14 7:02 PM) CK MB Index [0.0-2.5] <0.4 (10/28/14 7:02 PM) Troponin-I [0.00-0.40 ng/mL] <0.02 ng/mL (10/28/14 7:02 PM) URINE AND STOOL Most recent to oldest [Reference Range]: 1 2 UA Turbidity [Clear] Clear (10/28/14 8:11 PM) UA Color [Yellow] Yellow *NA* (10/28/14 8:11 PM) UA pH [5.0-8.0] 7.5 (10/28/14 8:11 PM) UA Spec Grav [<=1.030] 1.015 (10/28/14 8:11 PM) UA Glucose [Negative mg/dL] Negative mg/dL (10/28/14 8:11 PM) UA Blood [Negative] Negative (10/28/14 8:11 PM) UA Ketones [Negative mg/dL] Negative mg/dL *NA* (10/28/14 8:11 PM) UA Protein [Negative mg/dL] Negative mg/dL (10/28/14 8:11 PM) UA Urobilinogen [0.1-1.0 EU/dL] 0.2 EU/dL (10/28/14 8:11 PM) UA Bili [Negative] Negative *NA* (10/28/14 8:11 PM) UA Leuk Est [Negative] Negative (10/28/14 8:11 PM) UA Nitrite [Negative] Negative (10/28/14 8:11 PM) UA WBC [None Seen /HPF] 0-2 /HPF (10/28/14 8:11 PM) UA RBC [0-2] None Seen (10/28/14 8:11 PM) UA Bacteria [None Seen /HPF] Occasional /HPF (10/28/14 8:11 PM) UA Sq Epi [Few /LPF] Few /LPF (10/28/14 8:11 PM) HEMATOLOGY Most recent to oldest [Reference Range]: 1 2 WBC [3.7-10.4 K/CMM] 11.2 K/CMM 13.7 K/CMM *HI* *HI* (10/29/14 7:27 AM) (10/28/14 7:02 PM) RBC [4.20-5.40 M/CMM] 3.63 M/CMM 3.74 M/CMM *LOW* *LOW* (10/29/14 7:27 AM) (10/28/14 7:02 PM) Hgb [12.0-16.0 g/dL] 10.2 g/dL 10.0 g/dL *LOW* *LOW* (10/29/14 7:27 AM) (10/28/14 7:02 PM) Hct [36.0-48.0 %] 30.5 % 31.7 % *LOW* *LOW* (10/29/14 7:27 AM) (10/28/14 7:02 PM) MCV [80.0-98.0 fL] 83.8 fL 84.6 fL (10/29/14 7:27 AM) (10/28/14 7:02 PM) MCH [27.0-31.0 pg] 28.1 pg 26.8 pg (10/29/14 7:27 AM) *LOW* (10/28/14 7:02 PM) MCHC [32.0-36.0 g/dL] 33.5 g/dL 31.7 g/dL (10/29/14 7:27 AM) *LOW* (10/28/14 7:02 PM) RDW [11.5-14.5 %] 15.2 % 14.7 % *HI* *HI* (10/29/14 7:27 AM) (10/28/14 7:02 PM) Platelet [133-450 K/CMM] 315 K/CMM 289 K/CMM (10/29/14 7:27 AM) (10/28/14 7:02 PM) MPV [7.4-10.4 fL] 8.0 fL 8.1 fL (10/29/14 7:27 AM) (10/28/14 7:02 PM) Segs [45.0-75.0 %] 52.5 % 60.7 % (10/29/14 7:27 AM) (10/28/14 7:02 PM) Lymphocytes [20.0-40.0 %] 36.6 % 31.5 % (10/29/14 7:27 AM) (10/28/14 7:02 PM) Monocytes [2.0-12.0 %] 7.4 % 6.2 % (10/29/14 7:27 AM) (10/28/14 7:02 PM) Eosinophils [0.0-4.0 %] 1.9 % 1.2 % (10/29/14 7:27 AM) (10/28/14 7:02 PM) Basophils [0.0-1.0 %] 1.6 % 0.4 % *HI* (10/28/14 7:02 PM) (10/29/14 7:27 AM) Segs-Bands # [1.5-8.1 K/CMM] 5.9 K/CMM 8.3 K/CMM (10/29/14 7:27 AM) *HI* (10/28/14 7:02 PM) Lymphocytes # [1.0-5.5 K/CMM] 4.1 K/CMM 4.3 K/CMM (10/29/14 7:27 AM) (10/28/14 7:02 PM) Monocytes # [0.0-0.8 K/CMM] 0.8 K/CMM 0.8 K/CMM (10/29/14 7:27 AM) (10/28/14 7:02 PM) Eosinophils # [0.0-0.5 K/CMM] 0.2 K/CMM 0.2 K/CMM (10/29/14 7:27 AM) (10/28/14 7:02 PM) Basophils # [0.0-0.2 K/CMM] 0.2 K/CMM 0.1 K/CMM (10/29/14 7:27 AM) (10/28/14 7:02 PM) Medications Administered During Your Visit No data available for this section Immunizations No data available for this section Social History Social History Type Response Substance Abuse Drug Cessation Education Provided No Exercise Times per week: Daily 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
[2018-10-23 12:16] LABS: Protime INR 1.11
--- OUTSIDE RECORDS SUMMARY | 2018-10-23 12:16 | XMS REPORT | Summary of Care ---
:1960 Author Organization [facility] Address [address] [place] [id number]- Care Team Providers Name Role Phone Emil LUDread Primary Care Physician Encounter [facility]_devon(FIN) [phone] Date(s): 01/04/16 - 01/04/16 [facility] [address] [place] [address] Professional Services provided by [facility] [place] [address]- Discharge Disposition: Home Attending Physician: Estevan Morelos MD Vital Signs Most recent to oldest 1 2 3 [Reference Range]: Height 157.48 cm (01/04/16 10:05 AM) Temperature Oral [96.4-99.1 97.8 DegF DegF] (01/04/16 10:05 AM) Blood Pressure [90-140/60-90 134/72 mmHg 131/84 mmHg 140/82 mmHg mmHg] (01/04/16 11:40 AM) (01/04/16 11:20 AM) (01/04/16 10:55 AM) Respiratory Rate [14-20 16 BRMIN 17 BRMIN 18 BRMIN BRMIN] (01/04/16 11:40 AM) (01/04/16 11:20 AM) (01/04/16 10:55 AM) Peripheral Pulse Rate 89 bpm 86 bpm 98 bpm [60-100 bpm] (01/04/16 11:40 AM) (01/04/16 11:20 AM) (01/04/16 10:55 AM) Weight 90.909 kg (01/04/16 10:05 AM) Body Mass Index 36.66 m2 (01/04/16 10:05 AM) Problem List Condition Effective Dates Status Health [...] Substance Reaction Severity Status Benadryl hives Active Kenalog Kenalog Active levabid hives Active levofloxacin Active norepinephrine1 Active penicillins Active pentazocine2 Active Talwin unfunctional Active triamcinolone topical3 Active 1Data migrated from [employer] on 02/15/15. Originally documented as [email or web address] migrated from [employer] on 02/15/15. Originally documented as [email or web address] migrated from [employer] on 02/15/15. Originally documented as KENALOG. Medications midazolam 1 mg, 1 mL, Route: IVP, Drug form: INJ, PRN, PRN Other -See Comment, Start date : 01/04/16 10:30:00, Duration: 30 day, Stop date: 02/03/16 10:29:00 Notes: (Same as: Versed) MEDICATION WASTE Product Size: 5 mgProduct Wasted: ___ mg Start Date: 01/04/16 Stop Date: 02/03/16 Status: OrderedSublimaze 50 microgram, 1 mL, Route: IVP, Drug form: INJ, PRN, PRN Other -See Comment, Start date: 01/04/16 10:28:00, Duration: 30 day, Stop date: 02/03/16 10:27:00 Notes: (Same as: Sublimaze) Preservative free. Start Date: 01/04/16 Stop Date: 02/03/16 Status: Ordered Results No data available for this section Immunizations No data available for this section Procedures Procedure Date Related Diagnosis Body Site Appendectomy Diskectomy Fusion of cervicothoracic joint by posterior approach Gallbladder operation Hysterectomy Social History Social History Type Response Substance Abuse Cessation Education Provided: No. Exercise Exercise duration: 15. Exercise frequency: Daily. Employment/School Operates hazardous equipment: No. Alcohol Current, Type Wine, Liquor. Frequency: 1-2 times per year. Previous treatment: None. Household alcohol concerns: No. Smoking Status Former smoker; Type: Cigarettes; Number of years: 20; Previous treatment: None; Exposure to Tobacco Smoke None; Other Tobacco Frequency pt states quit 6 mos ago; Cigarette Smoking Last 365 Days No; Reg Smoking Cessation Counseling No1 1Pt reports she quit smoking 04/2015 Assessment and Plan No data available for this section
--- OUTSIDE RECORDS SUMMARY | 2018-10-23 12:16 | XMS REPORT | Summary of Care ---
:1960 Author Organization [facility] Address [facility] [place], [place] [address]- Care Team Providers Name Role Phone Dread Stein III Primary Care Physician Encounter HQ [email or web address]_devon(FIN) [phone] Date(s): 09/05/15 - 09/06/[address] [address]- Discharge Disposition: Home Attending Physician: Connie Jauregui MD Admitting Physician: Connie Jauregui MD Vital Signs Most recent to oldest 1 2 3 [Reference Range]: Height 160.02 cm (09/05/15 4:03 PM) Temperature Oral [96.4-99.1 98.8 DegF 98.8 DegF 97.9 DegF DegF] (09/06/15 11:39 AM) (09/06/15 7:15 AM) (09/06/15 4:00 AM) Blood Pressure 124/81 mmHg 133/85 mmHg 133/8 mmHg [90-140/60-90 mmHg] (09/06/15 11:39 AM) (09/06/15 7:15 AM) (09/06/15 4:00 AM ) Respiratory Rate [14-20 19 BRMIN 19 BRMIN 18 BRMIN BRMIN] (09/06/15 11:39 AM) (09/06/15 7:15 AM) (09/05/15 2:11 PM) Peripheral Pulse Rate 92 bpm 90 bpm 85 bpm [60-100 bpm] (09/06/15 11:39 AM) (09/06/15 7:15 AM) (09/06/15 4:00 AM) Weight 84.091 kg (09/05/15 4:03 PM) Body Mass Index 32.84 m2 (09/05/15 4:03 PM) Problem List Condition Effective Dates Status [...] on 02/15/15. Originally documented as KENALOG. Medications ALPRAZOLam 0.25 mg, 1 tab, Route: PO, Drug form: TAB, Bedtime, Dosing Weight 84.091, kg, Start date: 09/05/15 21:00:00, Duration: 30 day, Stop date: 10/04/15 21:00:00 Notes: With food or milk(Same as: Xanax) Start Date: 09/05/15 Stop Date: 09/06/15 Status: Discontinuedamitriptyline 100 mg, 1 tab, Route: PO, Drug form: TAB, Bedtime, Dosing Weight 84.091, kg, Start date: 09/05/15 21:00:00, Duration: 30 day, Stop date: 10/04/15 21:00:00 Notes: (Same as: Elavil) Start Date: 09/05/15 Stop Date: 09/06/15 Status: Discontinuedbenzonatate 100 mg, 1 cap, Route: PO, Drug form: CAP, TID, Dosing Weight 84.091, kg, Start date: 09/05/15 17:00:00, Duration: 30 day, Stop date: 10/05/15 13:00:00 Notes: (Same As: Naida Pearce)"Do Not Crush" Start Date: 09/05/15 Stop Date: 09/06/15 Status: Discontinuedbenzonatate 100 mg oral capsule 100 mg=1 cap, PO, TID, do not crush or chew, # 30 cap, 0 Refill(s) Start Date: 09/05/15 Stop Date: 09/15/15 Status: Orderedcarvedilol 3.125 mg, 1 tab, Route: PO, Drug form: TAB, BID, Dosing Weight 84.091, kg, Start date: 09/05/15 17:00:00, Duration: 30 day, Stop date: 10/05/15 9:00:00 Notes: Give with food. (Same As: Coreg) Start Date: 09/05/15 Stop Date: 09/06/15 Status: DiscontinuedCombivent Respimat CFC free 100 mcg-20 mcg/inh inhalation aerosol 2 puff, Route: INHALATION, Drug Form: AERO, Dosing Weight 85.909, kg, BID, Start date: 09/05/15 17:00:00, Duration: 30 day, Stop date: 10/05/15 9:00:00 Notes: Same as: Combivent Respimat Start Date: 09/05/15 Stop Date: 09/06/15 Status: DiscontinuedCreon 24,000 units oral delayed release capsule 1 cap, Route: PO, Drug Form: DRC, Dosing Weight 84.091, kg, QID, Start date: 17:00:00, Duration: 30 day, Stop date: 10/05/15 13:00:00 Notes: Same as: Bev RAMIREZ 24 : lipase 24,000 units, protease 76,000 units, amylase 120,000 units Start Date: 09/05/15 Stop Date: 09/06/15 Status: DiscontinuedDexilant 60 mg, Route: PO, Drug form: DRC, Daily, Dosing Weight 84.091, kg, Start date: 09/06/15 9:00:00, Duration: 30 day, Stop date: 10/05/15 9:00:00 Start Date: 09/06/15 Stop Date: 09/05/15 Status: DeletedDexilant 60 mg oral delayed release capsule 60 mg=1 cap, PO, Daily, # 30 day, 0 Refill(s) Start Date: 09/05/15 Status: OrderedhydrOXYzine hydrochloride 25 mg oral tablet 25 mg, 1 tab, Route: PO, Drug form: TAB, TID, Dosing Weight 84.091, kg, PRN Itching, Start date: 09/05/15 16:03:00, Duration: 30 day, Stop date: 10/05/15 16 :02:00 Notes: (Same as: Atarax) Avoid alcohol. Start Date: 09/05/15 Stop Date: 09/06/15 Status: DiscontinuedKlor-Con 10 10 mEq, 1 tab, Route: PO, Drug form: ERTAB, Daily, Dosing Weight 84.091, kg, Start date: 09/06/15 9:00:00, Duration: 30 day, Stop date: 10/05/15 9:00:00 Notes: (Same as: K-Dur 10)"Do Not Crush" With food and full glass of water Start Date: 09/06/15 Stop Date: 09/06/15 Status: DiscontinuedKlor-Con 10 10 mEq, PO, Daily, 0 Refill(s) Start Date: 09/05/15 Stop Date: 09/06/15 Status: Discontinuedlosartan 100 mg, 2 tab, Route: PO, Drug form: TAB, Daily, Dosing Weight 84.091, kg, Start date: 09/06/15 9:00:00, Duration: 30 day, Stop date: 10/05/15 9:00:00 Notes: (Same as: Pete) Start Date: 09/06/15 Stop Date: 09/06/15 Status: Discontinuedmeclizine 12.5 mg, 1 tab, Route: PO, Drug form: TAB, TID, Dosing Weight 84.091, kg, PRN Dizziness, Start date:09/05/15 16:04:00, Duration: 30 day, Stop date: 10/05/15 16:03:00 Notes: (Same as: Antivert) Start Date: 09/05/15 Stop Date: 09/06/15 Status: Discontinuedmetoclopramide 10 mg oral tablet 10 mg, 2 tab, Route: PO, Drug form: TAB, BID, Dosing Weight 84.091, kg, PRN Nausea, Start date: 09/05/15 16:04:00, Duration: 30 day, Stop date: 10/05/15 16: 03:00 Notes: (Same as: Reglan) Take 30 min before meals Start Date: 09/05/15 Stop Date: 09/06/15 Status: Discontinuedmontelukast 10 mg, 1 tab, Route: PO, Drug form: TAB, Daily, Dosing Weight 84.091, kg, Start date: 09/06/15 9:00:00, Duration: 30 day, Stop date: 10/05/15 9:00:00 Notes: (Same as:Singulair) Start Date: 09/06/15 Stop Date: 09/06/15 Status: Discontinuedpotassium chloride 10 mEq oral tablet, extended release 10 mEq, 1 tab, Route: PO, Drug form: ERTAB, Daily, Dosing Weight 84.091, kg, Start date: 09/06/15 9:00:00, Duration: 30 day, Stop date: 10/05/15 9:00:00 Notes: (Same as: K-Jesus 10)"Do Not Crush" With food and full glass of water Start Date: 09/06/15 Stop Date: 09/06/15 Status: DiscontinuedProtonix 40 mg, 1 tab, Route: PO, Drug form: ECTAB, Daily, Start date: 09/06/15 9:00:00, Duration: 30 day, Stop date: 10/05/15 9:00:00 Notes: Tablet should not be chewed or crushed.(Same as: Protonix) Start Date: 09/06/15 Stop Date: 09/06/15 Status: DiscontinuedProtonix 40 mg, 1 tab, Route: PO, Drug form: ECTAB, Before Dinner, Start date: 09/05/15 20:00:00, Duration: 30 day, Stop date: 10/05/15 16:30:00 Notes: Tablet should not be chewed or crushed.(Same as: Protonix) Start Date: 09/05/15 Stop Date: 09/06/15 Status: Discontinuedsucralfate 1 gm, 1 tab, Route: PO, Drug form: TAB, QID-Before Meals, Dosing Weight 84.091, kg, Start date: 09/05/15 16:30:00, Duration: 30 day, Stop date: 10/05/15 11:30: 00 Notes: May interfere w/enteral feeds - Take 1 hr before or 2 hr after antacids , dairy pdt, meals & minerals - On empty stomach. (Same As: Carafate) Start Date: 09/05/15 Stop Date: 09/06/15 Status: Discontinuedtramadol 50 mg oral tablet 50 mg, 1 tab, Route: PO, Drug form: TAB, Q6H, PRN Pain Score 1-3, Start date: 19:58:00, Duration: 30 day, Stop date: 10/05/15 19:57:00 Notes: Not to exceed 400mg/day. (Same As: Ultram) Start Date: 09/05/15 Stop Date: 09/06/15 Status: DiscontinuedTylenol 650 mg, 2 tab, Route: PO, Drug form: TAB, ONCE, Start date: 09/05/15 16:47:00, Stop date: 09/05/15 16:47:00 Notes: Do not exceed 4 gm/day. (Same as: Tylenol) Start Date: 09/05/15 Stop Date: 09/05/15 Status: CompletedZegerid 40 mg-1100 mg oral capsule 1 cap, Route: PO, Drug Form: CAP, Dosing Weight 84.091, kg, Daily, Start date: 09/06/15 9:00:00, Duration: 30 day, Stop date: 10/05/15 9:00:00 Start Date: 09/06/15 Stop Date: 09/05/15 Status: Deleted Results CHEM PANEL Most recent to oldest [Reference Range]: 1 LDH [98-192 unit/L] 254 unit/L *HI* (09/05/15 8:41 PM) CARDIAC ENZYMES Most recent to oldest [Reference Range]: 1 Total CK [12-191 unit/L] 143 unit/L (09/05/15 5:36 PM) CK MB [0.5-3.6 ng/mL] <0.5 ng/mL (09/05/15 5:36 PM) CK MB Index [0.0-2.5] <0.3 (09/05/15 5:36 PM) Troponin-I [0.00-0.40 ng/mL] <0.02 ng/mL (09/05/15 5:36 PM) ANEMIA STUDY Most recent to oldest [Reference Range]: 1 Iron [30-160 ug/dl] 27 ug/dl *LOW* (09/05/15 8:41 PM) Ferritin Lvl [5-204 ng/mL] 8 ng/mL (09/05/15 8:41 PM) % Satur Fe [12-57 %] 8 % *LOW* (09/05/15 8:41 PM) UIBC [110-370 ug/dl] 295 ug/dl (09/05/15 8:41 PM) Vitamin B12 Lvl [254-1320 pg/mL] 1001 pg/mL (09/05/15 8:41 PM) Folate Lvl [>=3.0 ng/mL] 10.7 ng/mL (09/05/15 8:41 PM) TIBC [228-428 ug/dl] 322 ug/dl (09/05/15 8:41 PM) HEMATOLOGY Most recent to oldest [Reference Range]: 1 WBC [3.7-10.4 K/CMM] 16.5 K/CMM *HI* (09/05/15 5:36 PM) RBC [4.20-5.40 M/CMM] 4.14 M/CMM *LOW* (09/05/15 5:36 PM) Hgb [12.0-16.0 g/dL] 9.8 g/dL *LOW* (09/05/15 5:36 PM) Hct [36.0-48.0 %] 32.2 % *LOW* (09/05/15 5:36 PM) MCV [80.0-98.0 fL] 77.6 fL *LOW* (09/05/15 5:36 PM) MCH [27.0-31.0 pg] 23.5 pg *LOW* (09/05/15 5:36 PM) MCHC [32.0-36.0 g/dL] 30.3 g/dL *LOW* (09/05/15 5:36 PM) RDW [11.5-14.5 %] 17.5 % *HI* (09/05/15 5:36 PM) Platelet [133-450 K/CMM] 271 K/CMM (09/05/15 5:36 PM) MPV [7.4-10.4 fL] 8.4 fL (09/05/15 5:36 PM) Segs [45.0-75.0 %] 62.0 % (09/05/15 5:36 PM) Lymphocytes [20.0-40.0 %] 26.0 % (09/05/15 5:36 PM) Monocytes [2.0-12.0 %] 9.8 % (09/05/15 5:36 PM) Eosinophils [0.0-4.0 %] 1.3 % (09/05/15 5:36 PM) Basophils [0.0-1.0 %] 0.9 % (09/05/15 5:36 PM) Segs-Bands # [1.5-8.1 K/CMM] 10.2 K/CMM *HI* (09/05/15 5:36 PM) Lymphocytes # [1.0-5.5 K/CMM] 4.3 K/CMM (09/05/15 5:36 PM) Monocytes # [0.0-0.8 K/CMM] 1.6 K/CMM *HI* (09/05/15 5:36 PM) Eosinophils # [0.0-0.5 K/CMM] 0.2 K/CMM (09/05/15 5:36 PM) Basophils # [0.0-0.2 K/CMM] 0.1 K/CMM (09/05/15 5:36 PM) Microcyte [None Seen] 1+ *ABN* (09/05/15 5:36 PM) Retic Auto [0.5-1.5 %] 2.2 % *HI* (09/05/15 8:41 PM) Immunizations No data available for this section [...] None. Household alcohol concerns: No. Smoking Status Current every day smoker; Type: Cigarettes; Number of years: 20 ; Previous treatment: None; Exposure to Tobacco Smoke None; Cigarette Smoking Last 365 Days Yes; Reg Smoking Cessation Counseling Yes Assessment and Plan No data available for this section
--- OUTSIDE RECORDS SUMMARY | 2018-10-23 12:16 | XMS REPORT | Summary of Care ---
:1960 Author Care Team Providers Name Role Phone Dread Stein III Primary Care Physician Encounter HQ [email or web address](FIN) [id number] Date(s): 11/15/14 - 11/19/14 [facility] [id number] [place] [address] - [facility] Discharge Disposition: Home Physician Attending: Aj Bowen MD Physician Admitting: Aj Bowen MD Reason for Visit ACUTE COPD EXACERBATION Vital Signs Most recent to oldest 1 2 3 [Reference Range]: Height 157.48 cm (11/15/14 11:15 PM) Temperature Oral [96.4-99.1 97.8 DegF 97.8 DegF 97.8 DegF DegF] (11/19/14 7:29 AM) (11/19/14 3:36 AM) (11/18/14 11:23 PM) Systolic Blood Pressure 124 mmHg 110 mmHg 111 mmHg [90-140 mmHg] (11/19/14 7:29 AM) (11/19/14 3:36 AM) (11/18/14 11:23 PM) Diastolic Blood Pressure 82 mmHg 72 mmHg 75 mmHg [60-90 mmHg] (11/19/14 7:29 AM) (11/19/14 3:36 AM) (11/18/14 11:23 PM) Respiratory Rate [14-20 16 BRMIN 20 BRMIN 20 BRMIN BRMIN] (11/19/14 7:29 AM) (11/19/14 3:36 AM) (11/18/14 11:23 PM) Peripheral Pulse Rate [60-100 78 bpm 79 bpm 79 bpm bpm] (11/19/14 7:29 AM) (11/19/14 3:36 AM) (11/18/14 11:23 PM) Weight 87.017 kg 81.818 kg (11/15/14 11:15 PM) (11/15/14 7:05 PM) Body Mass Index 35.09 m2 (11/15/14 11:15 PM) Problem List Condition Effective Dates Status [...] Kenalog Active levabid hives Active levofloxacin Active penicillins Active Talwin unfunctional Active Medications albuterol 90 mcg/inh inhalation aerosol 1 puff, INHALATION, QID, wheezing, # 1 ea, 0 Refill(s) Start Date: 11/19/14 Status: Orderedalbuterol-ipratropium 2.5-0.5 mg inhalation solution 3 ml, Route: NEB, Drug Form: SOLN, Dosing Weight 87.017, kg, Q6H, PRN as needed for shortness of breath or wheezing, Start date: 11/16/14 1:21:00, Duration: 30 day, Stop date: 12/16/14 1:20:00 Notes: (Same as: Marguerite) Start Date: 11/16/14 Stop Date: 11/19/14 Status: Discontinuedalbuterol-ipratropium 2.5-0.5 mg inhalation solution 3 ml, Route: NEB, Drug Form: SOLN, Dosing Weight 87.017, kg, AA3P-LH, Start date : 11/16/14 2:00:00, Duration: 30 day, Stop date: 12/15/14 20:00:00 Notes: (Same as: Marguerite) Start Date: 11/16/14 Stop Date: 11/19/14 Status: Discontinuedalbuterol-ipratropium 2.5-0.5 mg inhalation solution 3 mL, Route: NEB, Drug Form: SOLN, Dosing Weight 81.818, kg, ONCE, STAT, Start date: 11/15/14 19:46:00, Stop date: 11/15/14 19:46:00 Notes: (Same as: Duoneb) Start Date: 11/15/14 Stop Date: 11/15/14 Status: CompletedALPRAZOLam 0.25 mg, 1 tab, Route: PO, Drug form: TAB, Bedtime, Dosing Weight 87.017, kg, Start date: 11/17/14 21:00:00, Duration: 30 day, Stop date: 12/16/14 21:00:00 Notes: With food or milk(Same as: Xanax) Start Date: 11/17/14 Stop Date: 11/19/14 Status: DiscontinuedALPRAZOLam 0.25 mg, PO, Bedtime, 0 Refill(s) Start Date: 11/16/14 Status: Orderedamitriptyline 100 mg, 4 tab, Route: PO, Drug form: TAB, Bedtime, Dosing Weight 87.017, kg, Start date: 11/17/14 21:00:00, Duration: 30 day, Stop date: 12/16/14 21:00:00 Notes: (Same as: Elavil) Start Date: 11/17/14 Stop Date: 11/19/14 Status: DiscontinuedAtivan 1 mg, 0.5 mL, Route: IVP, Drug form: INJ, Q8H, Dosing Weight 87.017, kg, PRN Anxiety, Start date: 11/16/14 1:21:00, Duration: 30 day, Stop date: 12/16/14 1: 20:00 Notes: (Same as: Ativan) Start Date: 11/16/14 Stop Date: 11/19/14 Status: Discontinuedazithromycin + Sodium Chloride 0.9% IV 250 mL 500 mg, Route: IVPB, [id number], Dosing Weight 87.017, kg, Start date: 11/16/14 2: 00:00, Duration: 30 day, Stop date: 12/15/14 2:00:00 Notes: (Same As: Zithromax IV) Start Date: 11/16/14 Stop Date: 11/19/14 Status: Discontinuedazithromycin 500 mg oral tablet 500 mg=1 tab, PO, Daily, # 10 tab, 0 Refill(s) Start Date: 11/19/14 Stop Date: 11/29/14 Status: OrderedBenadryl 25 mg, Route: IVP, ONCE, Dosing Weight 81.818, kg, Priority: STAT, Start date: 11/15/14 22:26:00, Stop date: 11/15/14 22:26:00 Start Date: 11/15/14 Stop Date: 11/15/14 Status: DiscontinuedcarBAMazepine 200 mg, 1 tab, Route: PO, Drug form: TAB, ONCE, Dosing Weight 87.017, kg, Start date: 11/16/14 17:53:00, Stop date: 11/16/14 17:53:00 Notes: With food. (Same As: Tegretol) Start Date: 11/16/14 Stop Date: 11/16/14 Status: CompletedcarBAMazepine 400 mg, 2 tab, Route: PO, Drug form: TAB, Q6AM, Dosing Weight 87.017, kg, Start date: 11/18/14 6:00:00, Duration: 30 day, Stop date: 12/17/14 6:00:00 Notes: With food. (Same As: Tegretol) Start Date: 11/18/14 Stop Date: 11/19/14 Status: DiscontinuedcarBAMazepine 200 mg, 1 tab, Route: PO, Drug form: TAB, QNoon, Dosing Weight 87.017, kg, Start date: 11/17/14 12:00:00, Duration: 30 day, Stop date: 12/16/14 12:00:00 Notes: With food. (Same As: Tegretol) Start Date: 11/17/14 Stop Date: 11/19/14 Status: DiscontinuedcarBAMazepine 400 mg, 2 tab, Route: PO, Drug form: TAB, QPM, Dosing Weight 87.017, kg, Start date: 11/17/14 18:00:00, Duration: 30 day, Stop date: 12/16/14 18:00:00 Notes: With food. (Same As: Tegretol) Start Date: 11/17/14 Stop Date: 11/19/14 Status: DiscontinuedcarBAMazepine 200 mg, 1 tab, Route: PO, Drug form: TAB, ONCE, Dosing Weight 87.017, kg, Start date: 11/16/14 18:22:00, Stop date: 11/16/14 18:22:00 Notes: With food. (Same As: Tegretol) Start Date: 11/16/14 Stop Date: 11/16/14 Status: CompletedcarBAMazepine 200 mg oral tablet 400 mg=2 tab, PO, QPM, pt takes at 6 pm, 0 Refill(s) Special Instructions: pt takes at 6 pm Start Date: 11/16/14 Status: OrderedcarBAMazepine 200 mg oral tablet 200 mg=1 tab, PO, QNoon, 0 Refill(s) Start Date: 11/16/14 Status: Orderedcarvedilol 3.125 mg, 1 tab, Route: PO, Drug form: TAB, BID, Dosing Weight 87.017, kg, Start date: 11/17/14 9:00:00, Duration: 30 day, Stop date: 12/16/14 17:00:00 Notes: Give with food. (Same As: Coreg) Start Date: 11/17/14 Stop Date: 11/19/14 Status: Discontinuedcefepime + Sodium Chloride 0.9% IV 100 mL 1 gm, Route: IVPB, [id number], Dosing Weight 87.017, kg, (CrCl 30 - 49 ml/min), Start date: 11/16/14 8:00:00, Duration: 30 day, Stop date: 12/15/14 20:00:00 Notes: (Same As: Maxipime) Start Date: 11/16/14 Stop Date: 11/19/14 Status: DiscontinuedCombivent Respimat CFC free 100 mcg-20 mcg/inh inhalation aerosol 2 puff, INHALATION, QID, 0 Refill(s) Start Date: 11/16/14 Status: OrderedCreon 12,000 units oral delayed release capsule 2 cap, Route: PO, Drug Form: DRC, Dosing Weight 87.017, kg, QID, Start date: 9:00:00, Duration: 30 day, Stop date: 12/16/14 21:00:00 Notes: Same as : Lipase 30609 Units, Amylase 52583 units, Protease 66365 units Start Date: 11/17/14 Stop Date: 11/19/14 Status: DiscontinuedDextrose 50% Syringe 12.5 gm, 25 mL, Route: IVP, Drug Form: INJ, Dosing Weight 87.017, kg, PRN, PRN Blood Glucose Results, Start date: 11/16/14 1:21:00, Duration: 30 day, Stop date : 12/16/14 1:20:00 Start Date: 11/16/14 Stop Date: 11/19/14 Status: DiscontinuedDextrose 50% Syringe 25 gm, 50 mL, Route: IVP, Drug Form: INJ, Dosing Weight 87.017, kg, PRN, PRN Blood Glucose Results, Start date: 11/16/14 1:21:00, Duration: 30 day, Stop date : 12/16/14 1:20:00 Start Date: 11/16/14 Stop Date: 11/19/14 Status: Discontinueddicyclomine 10 mg, 1 cap, Route: PO, Drug form: CAP, TID, Dosing Weight 87.017, kg, Start date: 11/17/14 9:00:00, Duration: 30 day, Stop date: 12/16/14 17:00:00 Notes: (Same as: Randy) Start Date: 11/17/14 Stop Date: 11/19/14 Status: DiscontinuedEstrace 2 mg, 2 tab, Route: PO, Drug form: TAB, Daily, Start date: 11/17/14 11:36:00, Duration: 30 day, Stopdate: 12/17/14 9:00:00 Start Date: 11/17/14 Stop Date: 11/19/14 Status: Discontinuedestradiol 2 mg, Route: Transdermal, ONCE, Dosing Weight 87.017, kg, Start date: 11/16/14 17:57:00, Stop date: 11/16/14 17:57:00 Start Date: 11/16/14 Stop Date: 11/17/14 Status: Discontinuedgabapentin 400 mg oral capsule 400 mg=1 cap, PO, BID, 0 Refill(s) Start Date: 11/16/14 Status: Orderedgabapentin 400 mg oral capsule 400 mg, 1 cap, Route: PO, Drug form: CAP, BID, Dosing Weight 87.017, kg, Start date: 11/17/14 9:00:00, Duration: 30 day, Stop date: 12/16/14 17:00:00 Start Date: 11/17/14 Stop Date: 11/17/14 Status: Deletedgabapentin 400 mg oral capsule 400 mg, 1 cap, Route: PO, Drug form: CAP, BID, Dosing Weight 87.017, kg, Priority: NOW, Start date: 11/16/14 17:52:00, Stop date: 12/16/14 18:00:00 Notes: (Same as: Neurontin) Start Date: 11/16/14 Stop Date: 11/19/14 Status: Discontinuedglucagon 1 mg, Route: IM, Drug form: PDR/INJ, PRN, Dosing Weight 87.017, kg, PRN Blood Glucose Results, Startdate: 11/16/14 1:21:00, Duration: 30 day, Stop date: 12/16 1:20:00 Start Date: 11/16/14 Stop Date: 11/19/14 Status: DiscontinuedhydrOXYzine hydrochloride 25 mg, 1 tab, Route: PO, Drug form: TAB, TID, Dosing Weight 87.017, kg, Start date: 11/17/14 9:00:00, Duration: 30 day, Stop date: 12/16/14 17:00:00 Notes: (Same as: Atarax) Avoid alcohol. Start Date: 11/17/14 Stop Date: 11/19/14 Status: DiscontinuedhydrOXYzine hydrochloride 25 mg oral tablet 25 mg, 1 tab, Route: PO, Drug form: TAB, TID, Dosing Weight 87.017, kg, Start date: 11/17/14 9:00:00, Duration: 30 day, Stop date: 12/16/14 17:00:00 Start Date: 11/17/14 Stop Date: 11/17/14 Status: Deletedinsulin aspart 1 unit, 0.01 mL, Route: SUB-Q, Drug form: SOLN, TID-Before Meals, Dosing Weight 87.017, kg, PRN Blood Glucose Results, Start date: 11/16/14 1:21:00, Duration: 30 day, Stop date: 12/16/14 1:20:00 Notes: Roll in palms of hands gently; Do not shake vigorously. (Same as: NovoLOG)"single patient use only" Stable for 28 days at room temperature.Expires in days from Date Start Date: 11/16/14 Stop Date: 11/19/14 Status: Discontinuedinsulin aspart 1 unit, 0.01 mL, Route: SUB-Q, Drug form: SOLN, Bedtime, Dosing Weight 87.017, kg, PRN Blood GlucoseResults, Start date: 11/16/14 1:21:00, Duration: 30 day, Stop date: 12/16/14 1:20:00 Notes: Roll in palms of hands gently; Do not shake vigorously. (Same as: NovoLOG)"single patient use only" Stable for 28 days at room temperature.Expires in days from Date Start Date: 11/16/14 Stop Date: 11/19/14 Status: Discontinuedinsulin aspart 2 unit, 0.02 mL, Route: SUB-Q, Drug form: SOLN, Bedtime, Dosing Weight 87.017, kg, PRN Blood GlucoseResults, Start date: 11/16/14 1:21:00, Duration: 30 day, Stop date: 12/16/14 1:20:00 Notes: Roll in palms of hands gently; Do not shake vigorously. (Same as: NovoLOG)"single patient use only" Stable for 28 days at room temperature.Expires in days from Date Start Date: 11/16/14 Stop Date: 11/19/14 Status: Discontinuedinsulin aspart 5 unit, 0.05 mL, Route: SUB-Q, Drug form: SOLN, TID-Before Meals, Dosing Weight 87.017, kg, PRN Blood Glucose Results, Start date: 11/16/14 1:21:00, Duration: 30 day, Stop date: 12/16/14 1:20:00 Notes: Roll in palms of hands gently; Do not shake vigorously. (Same as: NovoLOG)"single patient use only" Stable for 28 days at room temperature.Expires in days from Date Start Date: 11/16/14 Stop Date: 11/19/14 Status: Discontinuedinsulin aspart 4 unit, 0.04 mL, Route: SUB-Q, Drug form: SOLN, TID-Before Meals, Dosing Weight 87.017, kg, PRN Blood Glucose Results, Start date: 11/16/14 1:21:00, Duration: 30 day, Stop date: 12/16/14 1:20:00 Notes: Roll in palms of hands gently; Do not shake vigorously. (Same as: NovoLOG)"single patient use only" Stable for 28 days at room temperature.Expires in days from Date Start Date: 11/16/14 Stop Date: 11/19/14 Status: Discontinuedinsulin aspart 3 unit, 0.03 mL, Route: SUB-Q, Drug form: SOLN, TID-Before Meals, Dosing Weight 87.017, kg, PRN Blood Glucose Results, Start date: 11/16/14 1:21:00, Duration: 30 day, Stop date: 12/16/14 1:20:00 Notes: Roll in palms of hands gently; Do not shake vigorously. (Same as: NovoLOG)"single patient use only" Stable for 28 days at room temperature.Expires in days from Date Start Date: 11/16/14 Stop Date: 11/19/14 Status: Discontinuedinsulin aspart 2 unit, 0.02 mL, Route: SUB-Q, Drug form: SOLN, TID-Before Meals, Dosing Weight 87.017, kg, PRN Blood Glucose Results, Start date: 11/16/14 1:21:00, Duration: 30 day, Stop date: 12/16/14 1:20:00 Notes: Roll in palms of hands gently; Do not shake vigorously. (Same as: NovoLOG)"single patient use only" Stable for 28 days at room temperature.Expires in days from Date Start Date: 11/16/14 Stop Date: 11/19/14 Status: Discontinuedinsulin aspart 3 unit, 0.03 mL, Route: SUB-Q, Drug form: SOLN, Bedtime, Dosing Weight 87.017, kg, PRN Blood GlucoseResults, Start date: 11/16/14 1:21:00, Duration: 30 day, Stop date: 12/16/14 1:20:00 Notes: Roll in palms of hands gently; Do not shake vigorously. (Same as: NovoLOG)"single patient use only" Stable for 28 days at room temperature.Expires in days from Date Start Date: 11/16/14 Stop Date: 11/19/14 Status: Discontinuedinsulin aspart 4 unit, 0.04 mL, Route: SUB-Q, Drug form: SOLN, Bedtime, Dosing Weight 87.017, kg, PRN Blood GlucoseResults, Start date: 11/16/14 1:21:00, Duration: 30 day, Stop date: 12/16/14 1:20:00 Notes: Roll in palms of hands gently; Do not shake vigorously. (Same as: NovoLOG)"single patient use only" Stable for 28 days at room temperature.Expires in days from Date Start Date: 11/16/14 Stop Date: 11/19/14 Status: Discontinuedlactulose 10 g/15 mL oral syrup 20 gm, 30 mL, Route: PO, Drug Form: SYRP, Dosing Weight 87.017, kg, Daily, Start date: 11/17/14 9:00:00, Stop date: 12/15/14 10:00:00 Notes: (Same as:Chronulac) Start Date: 11/17/14 Stop Date: 11/19/14 Status: Discontinuedlevofloxacin 750 mg, 150 mL, Route: IVPB, Drug form: SOLN, ONCE, Dosing Weight 81.818, kg, Priority: STAT, Start date: 11/15/14 19:46:00, Stop date: 11/15/14 19:46:00 Notes: (Same as:Levaquin) Start Date: 11/15/14 Stop Date: 11/15/14 Status: Completedlevofloxacin 750 mg oral tablet 750 mg=1 tab, PO, Daily, # 7 tab, 0 Refill(s) Start Date: 11/16/14 Stop Date: 11/19/14 Status: Discontinuedlidocaine 1% 5 mL, Route: INTRADERM, Drug Form: INJ, Dosing Weight 87.017, kg, ONCALL, Start date: 11/16/14 20:00:00, Duration: 30 day, Stop date: 12/16/14 19:59:00 Notes: Preservative free. (Same as: Xylocaine MPF) Start Date: 11/16/14 Stop Date: 11/19/14 Status: Discontinuedlidocaine 1% 5 mL, Route: INTRADERM, Drug Form: INJ, Dosing Weight 87.017, kg, ONCALL, Start date: 11/16/14 18:00:00, Duration: 30 day, Stop date: 12/16/14 17:59:00 Notes: Preservative free. (Same as: Xylocaine MPF) Start Date: 11/16/14 Stop Date: 11/19/14 Status: Discontinuedlosartan 100 mg, 2 tab, Route: PO, Drug form: TAB, Daily, Dosing Weight 87.017, kg, Start date: 11/17/14 9:00:00, Duration: 30 day, Stop date: 12/16/14 9:00:00 Notes: (Same as: Cozaar) Start Date: 11/17/14 Stop Date: 11/19/14 Status: Discontinuedmagnesium citrate 150 ml, Route: PO, Drug Form: LIQ, Dosing Weight 87.017, kg, ONCE, Start date: 11/17/14 13:30:00, Stop date: 11/17/14 13:30:00 Notes: (Same as: Citrate of Magnesia) Start Date: 11/17/14 Stop Date: 11/17/14 Status: Completedmeclizine 25 mg, 1 tab, Route: PO, Drug form: TAB, TID, Dosing Weight 87.017, kg, PRN Dizziness, Start date: 11/18/14 12:41:00, Duration: 30 day, Stop date: 12/18/14 12:40:00 Notes: (Same as: Antivert) Start Date: 11/18/14 Stop Date: 11/19/14 Status: DiscontinuedMiraLax 17 gm, 1 pkt, Route: PO, Drug form: PWDR, Daily, Dosing Weight 87.017, kg, Start date: 11/18/14 9:00:00, Duration: 30 day, Stop date: 12/17/14 9:00:00 Notes: Dissolve in 8 oz of water or juice.(Same as: Miralax) Start Date: 11/18/14 Stop Date: 11/19/14 Status: Discontinuedmontelukast 10 mg, 1 tab, Route: PO, Drug form: TAB, Daily, Dosing Weight 87.017, kg, Start date: 11/17/14 9:00:00, Duration: 30 day, Stop date: 12/16/14 9:00:00 Notes: (Same as:Singulair) Start Date: 11/17/14 Stop Date: 11/19/14 Status: Discontinuedmorphine Sulfate 1 mg, 0.5 mL, Route: IVP, Drug form: INJ, Q3H, Dosing Weight 87.017, kg, PRN Chest Pain, Start date:11/16/14 1:20:00, Duration: 30 day, Stop date: 12/16/14 1 :19:00 Notes: (Same as:MORPhine Sulfate) Start Date: 11/16/14 Stop Date: 11/19/14 Status: DiscontinuedMucinex 600 mg oral tablet, extended release 600 mg=1 tab, PO, Q12H, # 14 tab, 0 Refill(s) Start Date: 11/19/14 Stop Date: 11/26/14 Status: OrderedNorco 5/325 oral tablet 1 tab, Route: PO, Drug Form: TAB, Dosing Weight 81.818, kg, ONCE, STAT, Start date: 11/15/14 20:48:00, Stop date: 11/15/14 20:48:00 Start Date: 11/15/14 Stop Date: 11/15/14 Status: CompletedNS 1,000 mL 1,000 mL, Rate: 75 ml/hr, Infuse over: 13.3 hr, Route: IV, Dosing Weight 87.017 kg, Total Volume: 1,000, Start date: 11/16/14 1:23:00, Duration: 30 day, Stop date: 12/16/14 1:22:00 Start Date: 11/16/14 Stop Date: 11/19/14 Status: DiscontinuedpredniSONE 10 mg, Route: PO, Drug form: TAB, Daily, Dosing Weight 87.017, kg, Start date: 11/17/14 9:00:00, Duration: 30 day, Stop date: 12/16/14 9:00:00 Start Date: 11/17/14 Stop Date: 11/17/14 Status: DiscontinuedpredniSONE 60 mg, 3 tab, Route: PO, Drug form: TAB, ONCE, Dosing Weight 81.818, kg, Priority: STAT, Start date:11/15/14 19:47:00, Stop date: 11/15/14 19:47:00 Notes: Take with food. Start Date: 11/15/14 Stop Date: 11/15/14 Status: CompletedpredniSONE 10 mg oral tablet 10 mg=1 tab, PO, Daily, # 42 tab, 0 Refill(s) Start Date: 11/19/14 Stop Date: 11/19/14 Status: DiscontinuedpredniSONE 10 mg oral tablet 10 mg=1 tab, PO, Daily, with food, 0 Refill(s) Special Instructions: with food Start Date: 11/16/14 Stop Date: 11/19/14 Status: DiscontinuedpredniSONE 20 mg oral tablet See Special Instructions, PO, Daily, 16 day regimen: Days 1-4 - 40 mg (2 tabs) daily Days 5-8 - 30mg (1 1/2 tabs) daily Days 9-12 - 20 mg (1 tab) daily Day 13-16 - 10 mg (1/2 tab) daily, # 24 tab, 0 Refill(s) Special Instructions: 16 day regimen:Days 1-4 - 40 mg (2 tabs) dailyDays 5-8 - 30 mg (1 1/2 tabs) daily Days 9-12 - 20 mg (1 tab) dailyDay 13-16 - 10 mg (1/2 tab) daily Start Date: 11/19/14 Stop Date: 12/05/14 Status: OrderedPromethazine HCl and Codeine Phosphate oral syrup 5 ml, PO, BID, for cough, # 200 mL, 0 Refill(s) Start Date: 11/19/14 Status: OrderedProtonix 40 mg, 1 tab, Route: PO, Drug form: ECTAB, Daily, Dosing Weight 87.017, kg, Start date: 11/17/14 9:00:00, Duration: 30 day, Stop date: 12/16/14 9:00:00 Notes: Tablet should not be chewed or crushed.(Same as: Protonix) Start Date: 11/17/14 Stop Date: 11/19/14 Status: DiscontinuedPulmicort Respules 0.5 mg/2 mL inhalation suspension 1 mg, 4 ml, Route: NEB, Drug form: SOLN, BID, Dosing Weight 87.017, kg, Start date: 11/16/14 9:00:00, Duration: 30 day, Stop date: 12/15/14 17:00:00 Notes: (Same As: Pulmicort) Start Date: 11/16/14 Stop Date: 11/19/14 Status: DiscontinuedRestoril 15 mg, 1 cap, Route: PO, Drug form: CAP, Bedtime, Dosing Weight 87.017, kg, PRN Sleep, Start date: 11/16/14 1:20:00, Duration: 30 day, Stop date: 12/16/14 1:19: 00 Notes: (Same As: Restoril) Start Date: 11/16/14 Stop Date: 11/19/14 Status: DiscontinuedSaline Flush 0.9% 10 ml, Route: IVP, Drug Form: INJ, Dosing Weight 81.818, kg, PRN, PRN Line Flush , Start date: 11/15/14 20:28:00, Duration: 30 day, Stop date: 12/15/14 20:27:00 Notes: (Same as: BD Posiflush) Start Date: 11/15/14 Stop Date: 11/19/14 Status: DiscontinuedSaline Flush 0.9% 10 mL, Route: IVP, Drug Form: INJ, Dosing Weight 81.818, kg, PRN, PRN Line Flush , Start date: 11/15/14 19:46:00, Duration: 30 day, Stop date: 12/15/14 19:45:00 Notes: (Same as: BD Posiflush) Start Date: 11/15/14 Stop Date: 11/15/14 Status: DiscontinuedSolu-MEDROL 60 mg, 0.96 mL, Route: IVP, Drug form: INJ, Q6H, Dosing Weight 87.017, kg, Start date: 11/16/14 12:00:00, Stop date: 12/16/14 6:00:00 Notes: (Same as:Solu-MEDROL, A-Methapred) Start Date: 11/16/14 Stop Date: 11/19/14 Status: DiscontinuedSolu-MEDROL 125 mg, 2 mL, Route: IVP, Drug form: INJ, Q6H, Dosing Weight 87.017, kg, Start date: 11/16/14 1:30:00, Duration: 30 day, Stop date: 12/16/14 0:00:00 Notes: (Same as:Solu-MEDROL, A-Methapred) Start Date: 11/16/14 Stop Date: 11/16/14 Status: Discontinuedsucralfate 1 gm, 10 mL, Route: PO, Drug form: SUSP, QID-Before Meals, Dosing Weight 87.017 , kg, Start date: 11/17/14 11:30:00, Duration: 30 day, Stop date: 12/17/14 7:30: 00 Notes: Enteral feeds may interfere with the absorption of this medication. Shake well. Take 1 hr before or 2 hrs after antacids, dairy pdt, minerals & meals. (Same As: Carafate) Start Date: 11/17/14 Stop Date: 11/19/14 Status: DiscontinuedTopamax 50 mg, 2 tab, Route: PO, Drug form: TAB, BID, Dosing Weight 87.017, kg, Priority : NOW, Start date: 11/16/14 17:51:00, Stop date: 12/16/14 18:00:00 Notes: (Same As: Topamax)"Do Not Crush" Start Date: 11/16/14 Stop Date: 11/19/14 Status: Discontinuedtopiramate 50 mg, Route: PO, Drug form: TAB, Q12H, Dosing Weight 87.017, kg, Start date: 9:00:00, Duration: 30 day, Stop date: 12/16/14 21:00:00 Start Date: 11/17/14 Stop Date: 11/17/14 Status: Deletedtopiramate 50 mg oral tablet 50 mg=1 tab, PO, Q12H, pt takes at 6 am and 6 pm, # 60 tab, 0 Refill(s) Special Instructions: pt takes at 6 am and 6 pm Start Date: 11/16/14 Status: OrderedTussionex PennKinetic oral suspension, extended release 5 ml, Route: PO, Drug Form: SUSPER, Dosing Weight 87.017, kg, Q12H, Start date: 11/16/14 21:00:00, Duration: 30 day, Stop date: 12/16/14 9:00:00 Notes: (chlorpheniramine-hydrocodone 8-10mg/5ml LIQ) Non-formulary drug.(Same As: Tussionex PennKinetic) Start Date: 11/16/14 Stop Date: 11/19/14 Status: DiscontinuedTylenol 650 mg, Route: PO, Drug form: TAB, Q4H, Dosing Weight 87.017, kg, PRN Pain, Start date: 11/16/14 1:21:00, Duration: 30 day, Stop date: 12/16/14 1:20:00 Start Date: 11/16/14 Stop Date: 11/16/14 Status: DeletedTylenol 650 mg, 2 tab, Route: PO, Drug form: TAB, Q4H, Dosing Weight 87.017, kg, PRN Pain/Fever, Start date:11/16/14 1:21:00, Duration: 30 day, Stop date: 12/16/14 1 :20:00 Notes: Do not exceed 4 gm/day. (Same as: Tylenol) Start Date: 11/16/14 Stop Date: 11/19/14 Status: DiscontinuedZegerid 40 mg-1100 mg oral capsule 1 cap, PO, Daily, # 30 cap, 0 Refill(s) Start Date: 11/16/14 Status: OrderedZithromax 500 mg oral tablet 500 mg=1 tab, PO, Daily, # 5 tab, 0 Refill(s) Start Date: 11/19/14 Stop Date: 11/24/14 Status: OrderedZofran 4 mg, 2 mL, Route: IVP, Drug form: INJ, ONCE, Dosing Weight 81.818, kg, Priority : STAT, Start date: 11/15/14 22:19:00, Stop date: 11/15/14 22:19:00 Notes: (Same as: Zofran) Start Date: 11/15/14 Stop Date: 11/15/14 Status: CompletedZofran 4 mg, 2 mL, Route: IV, Drug form: INJ, Q4H, Dosing Weight 87.017, kg, PRN Nausea , Start date: 11/16/14 1:20:00, Duration: 30 day, Stop date: 12/16/14 1:19:00 Notes: (Same as: Zofran) Start Date: 11/16/14 Stop Date: 11/19/14 Status: Discontinued Results ELECTROLYTES Most recent to oldest [Reference Range]: 1 2 3 Sodium Lvl [135-145 mEq/L] 138 mEq/L 140 mEq/L (11/17/14 5:27 AM) (11/15/14 8:38 PM) Potassium Lvl [3.5-5.1 mEq/L] 4.3 mEq/L 4.1 mEq/L (11/17/14 5:27 AM) (11/15/14 8:38 PM) Chloride Lvl [95-109 mEq/L] 106 mEq/L 108 mEq/L (11/17/14 5:27 AM) (11/15/14 8:38 PM) CO2 [24-32 mEq/L] 27 mEq/L 24 mEq/L (11/17/14 5:27 AM) (11/15/14 8:38 PM) AGAP [10.0-20.0 mEq/L] 9.3 mEq/L 12.1 mEq/L *LOW* (11/15/14 8:38 PM) (11/17/14 5:27 AM) CHEM PANEL Most recent to oldest [Reference Range]: 1 2 3 Creatinine Lvl [0.5-1.4 mg/dL] 0.9 mg/dL 0.9 mg/dL (11/17/14 5:27 AM) (11/15/14 8:38 PM) eGFR 84 mL/min/1.73m2 1 84 mL/min/1.73m2 2 *NA* *NA* (11/17/14 5:27 AM) (11/15/14 8:38 PM) BUN [7-22 mg/dL] 14 mg/dL 14 mg/dL (11/17/14 5:27 AM) (11/15/14 8:38 PM) B/C Ratio [6-25] 16 (11/17/14 5:27 AM) Glucose Lvl [70-99 mg/dL] 153 mg/dL 3 105 mg/dL 4 *HI* *HI* (11/17/14 5:27 AM) (11/15/14 8:38 PM) Total Protein [6.4-8.4 g/dL] 7.3 g/dL (11/17/14 5:27 AM) Albumin Lvl [3.5-5.0 g/dL] 3.0 g/dL *LOW* (11/17/14 5:27 AM) Globulin [2.0-4.0 g/dL] 4.3 g/dL *HI* (11/17/14 5:27 AM) A/G Ratio [0.7-1.6] 0.7 (11/17/14 5:27 AM) Calcium Lvl [8.5-10.5 mg/dL] 8.6 mg/dL 8.6 mg/dL (11/17/14 5:27 AM) (11/15/14 8:38 PM) Phosphorus [2.5-4.5 mg/dL] 3.0 mg/dL (11/17/14 5:27 AM) Magnesium Lvl [1.8-2.4 mg/dL] 1.9 mg/dL (11/17/14 5:27 AM) ALT [0-65 unit/L] 36 unit/L (11/17/14 5:27 AM) AST [0-37 unit/L] 14 unit/L (11/17/14 5:27 AM) Alk Phos [39-136 unit/L] 173 unit/L *HI* (11/17/14 5:27 AM) Bili Total [0.2-1.3 mg/dL] 0.2 mg/dL (11/17/14 5:27 AM) Lactic Acid Lvl [0.5-2.2 mMol/L] 1.2 mMol/L (11/15/14 8:38 PM) 1Result Comment: The eGFR is calculated [...] values reflect the clinical guidelines of the [employer].4Interpretive Data: Adult reference range values reflect the clinical guidelines of the [employer].CARDIAC ENZYMES Most recent to oldest [Reference Range]: 1 2 3 Total CK [12-191 unit/L] 54 unit/L (11/15/14 8:38 PM) CK MB [0.5-3.6 ng/mL] <0.5 ng/mL (11/15/14 8:38 PM) CK MB Index [0.0-2.5] <0.9 (11/15/14 8:38 PM) Troponin-I [0.00-0.40 ng/mL] <0.02 ng/mL (11/15/14 8:38 PM) BNP [<=100 pg/mL] 15 pg/mL 5 (11/15/14 8:38 PM) 5Interpretive Data: Elevated results are in line with increasing severity of congestive heart failure. Minor elevations between 100 and 300 may be seen with Myocardial Ischemia, Sodium retaining drugs, and compensated/treated heart failure.HEMATOLOGY Most recent to oldest 1 2 3 [Reference Range]: WBC [3.7-10.4 K/CMM] 23.1 K/CMM 20.4 K/CMM 17.8 K/CMM *HI* *HI* *HI* (11/19/14 6:34 AM) (11/17/14 5:27 AM) (11/15/14 8:38 PM) RBC [4.20-5.40 M/CMM] 3.85 M/CMM 3.97 M/CMM 4.17 M/CMM *LOW* *LOW* *LOW* (11/19/14 6:34 AM) (11/17/14 5:27 AM) (11/15/14 8:38 PM) Hgb [12.0-16.0 g/dL] 10.5 g/dL 10.9 g/dL 11.3 g/dL *LOW* *LOW* *LOW* (11/19/14 6:34 AM) (11/17/14 5:27 AM) (11/15/14 8:38 PM) Hct [36.0-48.0 %] 32.9 % 33.8 % 32.2 % *LOW* *LOW* *LOW* (11/19/14 6:34 AM) (11/17/14 5:27 AM) (11/15/14 8:38 PM) MCV [80.0-98.0 fL] 85.5 fL 85.1 fL 77.1 fL (11/19/14 6:34 AM) (11/17/14 5:27 AM) *LOW* (11/15/14 8:38 PM) MCH [27.0-31.0 pg] 27.3 pg 27.5 pg 27.1 pg (11/19/14 6:34 AM) (11/17/14 5:27 AM) (11/15/14 8:38 PM) MCHC [32.0-36.0 g/dL] 31.9 g/dL 32.3 g/dL 35.1 g/dL *LOW* (11/17/14 5:27 AM) (11/15/14 8:38 PM) (11/19/14 6:34 AM) RDW [11.5-14.5 %] 15.1 % 15.0 % 15.3 % *HI* *HI* *HI* (11/19/14 6:34 AM) (11/17/14 5:27 AM) (11/15/14 8:38 PM) Platelet [133-450 K/CMM] 356 K/CMM 358 K/CMM 398 K/CMM (11/19/14 6:34 AM) (11/17/14 5:27 AM) (11/15/14 8:38 PM) MPV [7.4-10.4 fL] 7.3 fL 7.4 fL 7.6 fL *LOW* (11/17/14 5:27 AM) (11/15/14 8:38 PM) (11/19/14 6:34 AM) Segs [45.0-75.0 %] 67.7 % 84.1 % 67.5 % (11/19/14 6:34 AM) *HI* (11/15/14 8:38 PM) (11/17/14 5:27 AM) Lymphocytes [20.0-40.0 %] 24.2 % 12.2 % 23.1 % (11/19/14 6:34 AM) *LOW* (11/15/14 8:38 PM) (11/17/14 5:27 AM) Monocytes [2.0-12.0 %] 7.7 % 3.4 % 7.9 % (11/19/14 6:34 AM) (11/17/14 5:27 AM) (11/15/14 8:38 PM) Eosinophils [0.0-4.0 %] 0.1 % 0.0 % 1.3 % (11/19/14 6:34 AM) (11/17/14 5:27 AM) (11/15/14 8:38 PM) Basophils [0.0-1.0 %] 0.3 % 0.3 % 0.2 % (11/19/14 6:34 AM) (11/17/14 5:27 AM) (11/15/14 8:38 PM) Segs-Bands # [1.5-8.1 K/CMM] 15.6 K/CMM 17.1 K/CMM 12.0 K/CMM *HI* *HI* *HI* (11/19/14 6:34 AM) (11/17/14 5:27 AM) (11/15/14 8:38 PM) Lymphocytes # [1.0-5.5 5.6 K/CMM 2.5 K/CMM 4.1 K/CMM K/CMM] *HI* (11/17/14 5:27 AM) (11/15/14 8:38 PM) (11/19/14 6:34 AM) Monocytes # [0.0-0.8 K/CMM] 1.8 K/CMM 0.7 K/CMM 1.4 K/CMM *HI* (11/17/14 5:27 AM) *HI* (11/19/14 6:34 AM) (11/15/14 8:38 PM) Eosinophils # [0.0-0.5 0.0 K/CMM 0.0 K/CMM 0.2 K/CMM K/CMM] (11/19/14 6:34 AM) (11/17/14 5:27 AM) (11/15/14 8:38 PM) Basophils # [0.0-0.2 K/CMM] 0.1 K/CMM 0.1 K/CMM 0.0 K/CMM (11/19/14 6:34 AM) (11/17/14 5:27 AM) (11/15/14 8:38 PM) PT [12.0-14.7 seconds] 13.6 seconds (11/17/14 5:27 AM) INR [0.85-1.17] 1.04 6 (11/17/14 5:27 AM) PTT [22.9-35.8 seconds] 24.6 seconds 7 (11/17/14 5:27 AM) 6Interpretive Data: RECOMMENDED RANGES FOR PROTIME INR: 2.0-3.0 for most medical and surgical thromboembolic states. 2.5-3.5 for artificial heart valves and recurrent embolism. INR SHOULD BE USED ONLY FOR PATIENTS ON STABLE ANTICOAGULANT THERAPY.7Interpretive Data: Heparin Therapeutic Range: 57 - 92 SecondsVIRAL - SEROLOGY Most recent to oldest [Reference Range]: 1 2 3 Influ A [Negative] Negative (11/17/14 5:27 AM) Influ B [Negative] Negative 8 (11/17/14 5:27 AM) 8Interpretive Data: Influenza A&B Antigen: Due to the low sensitivity of this test a negative result does not exclude influenza virus infection. A diagnosis of influenza should be considered based on a patient's clinical presentation and empiric antiviral treatment should be considered, if indicated. If more conclusive testing is desired, follow-up confirmatory testing with either viral culture or PCR is warranted. Medications Administered During Your Visit No data [...]
--- OUTSIDE RECORDS SUMMARY | 2018-10-23 12:16 | XMS REPORT | Summary of Care ---
:1960 Author Organization [facility] Address [facility] [place], [place] [address]- Care Team Providers Name Role Phone Emil LUDread Primary Care Physician Encounter HQ [email or web address](FIN) [phone] Date(s): 07/29/15 - 07/29/[address] [address]- Discharge Diagnosis: Gastritis Discharge Disposition: Home Attending Physician: Randy De La Cruz MD Vital Signs Most recent to oldest [Reference Range]: 1 2 Height 157.48 cm (07/29/15 2:06 PM) Most recent to oldest [Reference Range]: 1 2 Temperature Oral [96.4-99.1 DegF] 98.3 DegF 97.9 DegF (07/29/15 9:01 PM) (07/29/15 2:06 PM) Most recent to oldest [Reference Range]: 1 2 Blood Pressure [90-140/60-90 mmHg] 148/78 mmHg 153/89 mmHg *HI* *HI* (07/29/15 9:01 PM) (07/29/15 2:06 PM) Most recent to oldest [Reference Range]: 1 2 Respiratory Rate [14-20 BRMIN] 16 BRMIN 20 BRMIN (07/29/15 9:01 PM) (07/29/15 2:06 PM) Most recent to oldest [Reference Range]: 1 2 Peripheral Pulse Rate [60-100 bpm] 75 bpm 92 bpm (07/29/15 9:01 PM) (07/29/15 2:06 PM) Most recent to oldest [Reference Range]: 1 2 Weight 85.909 kg (07/29/15 2:06 PM) Most recent to oldest [Reference Range]: 1 2 Body Mass Index 34.64 m2 (07/29/15 2:06 PM) Problem List Condition Effective Dates Status [...] on 02/15/15. Originally documented as KENALOG. Medications morphine Sulfate 4 mg, 1 mL, Route: IVP, Drug form: INJ, ONCE, Dosing Weight 85.909, kg, Priority : STAT, Start date: 07/29/15 15:31:00, Stop date: 07/29/15 15:31:00 Notes: (Same as:MORPhine Sulfate) Start Date: 07/29/15 Stop Date: 07/29/15 Status: Completedmorphine Sulfate 4 mg, Route: IVP, Drug form: INJ, ONCE, Dosing Weight 85.909, kg, Priority: STAT , Start date: 07/29/15 17:45:00, Stop date: 07/29/15 17:45:00 Start Date: 07/29/15 Stop Date: 07/29/15 Status: Completedondansetron 4 mg, 2 mL, Route: IVP, Drug form: INJ, ONCE, Dosing Weight 85.909, kg, Priority : STAT, Start date: 07/29/15 15:27:00, Stop date: 07/29/15 15:27:00 Notes: (Same as: Zofran) MEDICATION WASTE Product Size: 4 mgProduct Wasted: ___ mg Start Date: 07/29/15 Stop Date: 07/29/15 Status: CompletedSaline Flush 0.9% 10 mL, Route: IVP, Drug Form: INJ, Dosing Weight 85.909, kg, PRN, PRN Line Flush , Start date: 07/29/15 15:27:00, Duration: 30 day, Stop date: 08/28/15 14:26:00 Notes: (Same as: BD Posiflush) Start Date: 07/29/15 Stop Date: 07/29/15 Status: DiscontinuedSodium Chloride 0.9% (Bolus) IV 1,000 mL, 1000 ml/hr, Infuse Over: 1 hr, Route: IV, 1,000, Drug form: INJ, ONCE , Priority: STAT, Dosing Weight 85.909 kg, Start date: 07/29/15 15:27:00, Duration: 1 doses or times, Stop date: 07/29/15 15:27:00 Start Date: 07/29/15 Stop Date: 07/29/15 Status: CompletedTylenol with Codeine #3 oral tablet 1 - 2 tab, PO, Q4H, PRN Pain, X 3 day, # 20 tab, 0 Refill(s) Start Date: 07/29/15 Stop Date: 08/01/15 Status: OrderedZofran ODT 4 mg oral tablet, disintegrating 4 mg=1 tab, PO, BID, PRN Nausea and Vomiting, Dissolve tab under tongue, X 3 day , # 6 tab, 0 Refill(s) Special Instructions: Dissolve tab under tongue Start Date: 07/29/15 Stop Date: 08/01/15 Status: Ordered Results ELECTROLYTES Most recent to oldest [Reference Range]: 1 Sodium Lvl [135-145 mEq/L] 139 mEq/L (07/29/15 4:40 PM) Potassium Lvl [3.5-5.1 mEq/L] 4.4 mEq/L (07/29/15 4:40 PM) Chloride Lvl [95-109 mEq/L] 106 mEq/L (07/29/15 4:40 PM) CO2 [24-32 mEq/L] 29 mEq/L (07/29/15 4:40 PM) AGAP [10.0-20.0 mEq/L] 8.4 mEq/L *LOW* (07/29/15 4:40 PM) CHEM PANEL Most recent to oldest [Reference Range]: 1 Creatinine Lvl [0.5-1.4 mg/dL] 0.9 mg/dL (07/29/15 4:40 PM) eGFR 84 mL/min/1.73m2 1 *NA* (07/29/15 4:40 PM) BUN [7-22 mg/dL] 6 mg/dL *LOW* (07/29/15 4:40 PM) Glucose Lvl [70-99 mg/dL] 113 mg/dL *HI* (07/29/15 4:40 PM) Total Protein [6.4-8.4 g/dL] 7.3 g/dL (07/29/15 4:40 PM) Albumin Lvl [3.5-5.0 g/dL] 2.9 g/dL *LOW* (07/29/15 4:40 PM) Globulin [2.0-4.0 g/dL] 4.4 g/dL *HI* (07/29/15 4:40 PM) A/G Ratio [0.7-1.6] 0.7 (07/29/15 4:40 PM) Calcium Lvl [8.5-10.5 mg/dL] 8.6 mg/dL (07/29/15 4:40 PM) ALT [0-65 unit/L] 18 unit/L (07/29/15 4:40 PM) AST [0-37 unit/L] 18 unit/L (07/29/15 4:40 PM) Alk Phos [39-136 unit/L] 149 unit/L *HI* (07/29/15 4:40 PM) Bili Total [0.2-1.3 mg/dL] 0.2 mg/dL (07/29/15 4:40 PM) Bili Direct [0.0-0.3 mg/dL] 0.1 mg/dL (07/29/15 4:40 PM) Bili Indirect [0.0-1.0 mg/dL] 0.1 mg/dL (07/29/15 4:40 PM) Lipase Lvl [73-393 unit/L] 237 unit/L (07/29/15 4:40 PM) 1Result Comment: The eGFR is calculated [...] eGFR should be multiplied by the estimated BMI.URINE AND STOOL Most recent to oldest [Reference Range]: 1 UA Turbidity [Clear] Clear (07/29/15 4:40 PM) UA Color [Yellow] Yellow *NA* (07/29/15 4:40 PM) UA pH [5.0-8.0] 6.0 (07/29/15 4:40 PM) UA Spec Grav [<=1.030] <=1.005 *NA* (07/29/15 4:40 PM) UA Glucose [Negative] Negative (07/29/15 4:40 PM) UA Blood [Negative] Negative (07/29/15 4:40 PM) UA Ketones [Negative] Negative *NA* (07/29/15 4:40 PM) UA Protein [Negative] Negative (07/29/15 4:40 PM) UA Urobilinogen [0.1-1.0 EU/dL] 0.2 EU/dL (07/29/15 4:40 PM) UA Bili [Negative] Negative *NA* (07/29/15 4:40 PM) UA Leuk Est [Negative] Negative (07/29/15 4:40 PM) UA Nitrite [Negative] Negative (07/29/15 4:40 PM) UA WBC [None Seen /HPF] 0-2 /HPF (07/29/15 4:40 PM) UA RBC [0-2 /HPF] 0-2 /HPF (07/29/15 4:40 PM) UA Bacteria [None Seen /HPF] Occasional /HPF (07/29/15 4:40 PM) UA Sq Epi [Few /LPF] Occasional /LPF (07/29/15 4:40 PM) HEMATOLOGY Most recent to oldest [Reference Range]: 1 WBC [3.7-10.4 K/CMM] 16.4 K/CMM *HI* (07/29/15 4:40 PM) RBC [4.20-5.40 M/CMM] 4.22 M/CMM (07/29/15 4:40 PM) Hgb [12.0-16.0 g/dL] 9.9 g/dL *LOW* (07/29/15 4:40 PM) Hct [36.0-48.0 %] 32.6 % *LOW* (07/29/15 4:40 PM) MCV [80.0-98.0 fL] 77.2 fL *LOW* (07/29/15 4:40 PM) MCH [27.0-31.0 pg] 23.4 pg *LOW* (07/29/15 4:40 PM) MCHC [32.0-36.0 g/dL] 30.3 g/dL *LOW* (07/29/15 4:40 PM) RDW [11.5-14.5 %] 17.3 % *HI* (07/29/15 4:40 PM) Platelet [133-450 K/CMM] 328 K/CMM (07/29/15 4:40 PM) MPV [7.4-10.4 fL] 8.3 fL (07/29/15 4:40 PM) Segs [45.0-75.0 %] 54.5 % (07/29/15 4:40 PM) Lymphocytes [20.0-40.0 %] 35.0 % (07/29/15 4:40 PM) Monocytes [2.0-12.0 %] 7.9 % (07/29/15 4:40 PM) Eosinophils [0.0-4.0 %] 2.0 % (07/29/15 4:40 PM) Basophils [0.0-1.0 %] 0.6 % (07/29/15 4:40 PM) Segs-Bands # [1.5-8.1 K/CMM] 8.9 K/CMM *HI* (07/29/15 4:40 PM) Lymphocytes # [1.0-5.5 K/CMM] 5.8 K/CMM *HI* (07/29/15 4:40 PM) Monocytes # [0.0-0.8 K/CMM] 1.3 K/CMM *HI* (07/29/15 4:40 PM) Eosinophils # [0.0-0.5 K/CMM] 0.3 K/CMM (07/29/15 4:40 PM) Basophils # [0.0-0.2 K/CMM] 0.1 K/CMM (07/29/15 4:40 PM) Anisocyte [None Seen] 1+ *ABN* (07/29/15 4:40 PM) Polychrom Sight *NA* (07/29/15 4:40 PM) Microcyte [None Seen] 1+ *ABN* (07/29/15 4:40 PM) Schistocyte [None Seen] 1-3 per HPF (07/29/15 4:40 PM) Large Plt Slight *NA* (07/29/15 4:40 PM) Immunizations No data available for this [...] Status Current every day smoker; Type: Cigarettes; Exposure to Tobacco Smoke None; Cigarette Smoking Last 365 Days Yes; Reg Smoking Cessation Counseling Yes Assessment and Plan No data available for this section
--- OUTSIDE RECORDS SUMMARY | 2018-10-23 12:17 | XMS REPORT | Summary of Care ---
:1960 Author Organization [facility] Address [facility] [place], [place] [address]- Care Team Providers Name Role Phone Emil LUDread Primary Care Physician Encounter HQ [email or web address](FIN) [id number] Date(s): 02/15/16 - 02/20/[address] [address]- Discharge Disposition: Home Attending Physician: Seamus Esqueda MD Admitting Physician: Seamus Esqueda MD Vital Signs Most recent to oldest 1 2 3 [Reference Range]: Height 157.48 cm 157.48 cm (02/15/16 10:45 PM) (02/15/16 11:06 AM) Temperature Oral [96.4-99.1 97.6 DegF 97.9 DegF 98.6 DegF DegF] (02/20/16 12:04 PM) (02/20/16 8:06 AM) (02/20/16 4:25 AM) Blood Pressure [90-140/60-90 136/86 mmHg 133/84 mmHg 145/87 mmHg mmHg] (02/20/16 12:04 PM) (02/20/16 8:06 AM) *HI* (02/20/16 4:25 AM) Respiratory Rate [14-20 BRMIN] 20 BRMIN 20 BRMIN 18 BRMIN (02/20/16 12:04 PM) (02/20/16 8:06 AM) (02/20/16 4:25 AM) Peripheral Pulse Rate [60-100 89 bpm 88 bpm 84 bpm bpm] (02/20/16 12:04 PM) (02/20/16 8:06 AM) (02/20/16 4:25 AM) Weight 96.989 kg 90.909 kg (4/27/16 10:45 PM) (02/15/16 11:06 AM) Body Mass Index 39.11 m2 36.66 m2 (02/15/16 10:45 PM) (02/15/16 11:06 AM) Problem List Condition Effective Dates Status [...] on 02/15/15. Originally documented as KENALOG. Medications albuterol 0.5% inhalation solution 2.5 mg, 3.01 mL, Route: NEB, Drug form: SOLN, Q6H, Dosing Weight 96.989, kg, Start date: 02/19/16 18:00:00 CDT, Duration: 30 day, Stop date: 03/20/16 12:00: 00 CDT Notes: SEE RT DOCUMENTATION (Same as: Zander) Start Date: 02/19/16 Stop Date: 02/20/16 Status: Discontinuedalbuterol 0.5% inhalation solution 2.5 mg, NEB, Q6H, # 60 ea, 0 Refill(s) Start Date: 02/19/16 Status: OrderedALPRAZOLam 0.25 mg, 1 tab, Route: PO, Drug form: TAB, Bedtime, Dosing Weight 96.989, kg, Start date: 02/16/16 21:00:00 CDT, Duration: 30 day, Stop date: 03/16/16 21:00: 00 CDT Notes: With food or milk(Same as: Xanax) Start Date: 02/16/16 Stop Date: 02/20/16 Status: Discontinuedamitriptyline 100 mg, 2 tab, Route: PO, Drug form: TAB, Bedtime, Dosing Weight 96.989, kg, Start date: 02/16/16 21:00:00 CDT, Duration: 30 day, Stop date: 03/16/16 21:00: 00 CDT Notes: (Same as: Elavil) Start Date: 02/16/16 Stop Date: 02/20/16 Status: Discontinuedbenzonatate 100 mg, 1 cap, Route: PO, Drug form: CAP, TID, Dosing Weight 96.989, kg, Start date: 02/16/16 13:00:00 CDT, Duration: 30 day, Stop date: 03/17/16 9:00:00 CDT Notes: (Same As: Naida Pearce)"Do Not Crush" Start Date: 02/16/16 Stop Date: 02/20/16 Status: Discontinuedbisacodyl 10 mg, 1 supp, Route: ID, Drug form: SUPP, Daily, Dosing Weight 90.909, kg, PRN Constipation, Start date: 02/15/16 18:31:00 CDT, Duration: 30 day, Stop date: 18:30:00 CDT Notes: (Same As: Dulcolax, Bisco-Lax) Start Date: 02/15/16 Stop Date: 02/20/16 Status: DiscontinuedCarafate 1 gm, 10 mL, Route: PO, Drug form: SUSP, Before Meals & Bedtime, Start date : 02/17/16 16:30:00 CDT, Duration: 30 day, Stop date: 03/18/16 11:30:00 CDT Notes: Enteral feeds may interfere with the absorption of this medication. Shake well. Take 1 hr before or 2 hrs after antacids, dairy pdt, minerals & meals. (Same As: Carafate) Start Date: 02/17/16 Stop Date: 02/20/16 Status: Discontinuedcarvedilol 3.125 mg, 1 tab, Route: PO, Drug form: TAB, Q12H, Dosing Weight 96.989, kg, Start date: 02/16/16 21:00:00 CDT, Duration: 30 day, Stop date: 03/17/16 9:00: 00 CDT Notes: Give with food. (Same As: Coreg) Start Date: 02/16/16 Stop Date: 02/20/16 Status: Discontinuedcefepime + Sodium Chloride 0.9% IV 100 mL 1 gm, Route: IVPB, ONCE, Dosing Weight 90.909, kg, Priority: STAT, Start date: 02/15/16 16:35:00 CDT, Stop date: 02/15/16 16:35:00 CDT Notes: (Same As: Maxipime) MEDICATION WASTE Product Size: 1000 mgProduct Wasted: ___ mg Start Date: 02/15/16 Stop Date: 02/15/16 Status: Completedcefepime + Sodium Chloride 0.9% IV 100 mL 1 gm, Route: IVPB, ABXQ8H, Dosing Weight 90.909, kg, (CrCl >/=50 ml/min), Start date: 02/15/16 19:00:00 CDT, Duration: 30 day, Stop date: 03/16/16 16:00:00 CDT Notes: (Same As: Maxipime) MEDICATION WASTE Product Size: 1000 mgProduct Wasted: ___ mg Start Date: 02/15/16 Stop Date: 02/20/16 Status: DiscontinuedColace 100 mg oral capsule 100 mg, 1 cap, Route: PO, Drug form: CAP, Daily, Dosing Weight 90.909, kg, PRN Constipation, Start date: 02/15/16 18:31:00 CDT, Duration: 30 day, Stop date: 18:30:00 CDT Notes: (Same as: Colace) (Do Not Crush) Start Date: 02/15/16 Stop Date: 02/20/16 Status: DiscontinuedCombivent Respimat CFC free 100 mcg-20 mcg/inh inhalation aerosol 2 puff, Route: INHALATION, Drug Form: AERO, Dosing Weight 96.989, kg, QID, Start date: 02/16/16 13:00:00 CDT, Duration: 30 day, Stop date: 03/17/16 9:00: 00 CDT Notes: Same as: Combivent RespimatWASTE: Aerosol - Return to Pharmacy Start Date: 02/16/16 Stop Date: 02/20/16 Status: DiscontinuedCreon 24,000 units oral delayed release capsule 1 cap, Route: PO, Drug Form: DRC, Dosing Weight 96.989, kg, QID-With Food, Start date: 02/16/16 13:00:00 CDT, Duration: 30 day, Stop date: 03/17/16 12:00: 00 CDT Notes: Same as: Bev [facility] 24 : lipase 24,000 units, protease 76,000 units, amylase 120,000 units Start Date: 02/16/16 Stop Date: 02/16/16 Status: WwmpsiivctgwL0M 1/2NS + KCL 20mEq/L 1000ml (Premix) 1,000 mL 1,000 mL, Rate: 75 ml/hr, Infuse over: 13.3 hr, Route: IV, Dosing Weight 96.989 kg, Total Volume: 1,000, Start date: 02/16/16 11:33:00 CDT, Duration: 30 day, Stop date: 03/17/16 11:32:00 CDT Notes: PREMIX IV - Do Not AlterWASTE: F/P - Sink; E - Municipal Trash Bin Start Date: 02/16/16 Stop Date: 02/18/16 Status: DiscontinuedDiflucan 150 mg, 1.5 tab, Route: PO, Drug form: TAB, ONCE, Dosing Weight 96.989, kg, Priority: STAT, Start date: 02/20/16 11:46:00 CDT, Stop date: 02/20/16 11:46:00 CDT Notes: (Same as: Diflucan) Start Date: 02/20/16 Stop Date: 02/20/16 Status: CompletedFlagyl 500 mg, 100 mL, Route: IVPB, Drug form: INJ, ABXQ8H, Dosing Weight 90.909, kg, Priority: NOW, Start date: 02/15/16 18:26:00 CDT, Duration: 30 day, Stop date: 03/16/16 16:00:00 CDT Notes: (Same as: Flagyl) Avoid alcohol. Start Date: 02/15/16 Stop Date: 02/20/16 Status: DiscontinuedFleet Enema 133 mL, Route: ID, Drug Form: GREG, Dosing Weight 90.909, kg, ONCE, Start date: 02/15/16 16:56:00 CDT, Stop date: 02/15/16 16:56:00 CDT, For Constipation > 12 years, Pediatric Dosing Start Date: 02/15/16 Stop Date: 02/16/16 Status: CompletedFleet Enema 133 mL, Route: ID, Drug Form: GREG, Dosing Weight 90.909, kg, ONCE, Start date: 02/15/16 16:56:00 CDT, Stop date: 02/15/16 16:56:00 CDT, For Constipation > 12 years, Pediatric Dosing Start Date: 02/15/16 Stop Date: 02/15/16 Status: CompletedGoLYTELY 4,000 ml, Route: PO, Drug Form: PDR/REC, Dosing Weight 90.909, kg, ONCE, Start date: 02/15/16 16:51:00 CDT, Duration: 1 doses or times, Stop date: 02/15/16 16: 51:00 CDT Notes: (polyethylene glycol electrolyte solution 4 Liter bottle) (Same as: Golytely, Colyte) Start Date: 02/15/16 Stop Date: 02/15/16 Status: DiscontinuedGoLYTELY 4,000 ml, Route: NG, Drug Form: PDR/REC, Dosing Weight 90.909, kg, ONCE, Start date: 02/15/16 18:22:00 CDT, Duration: 1 doses or times, Stop date: 02/15/16 18: 22:00 CDT Notes: (polyethylene glycol electrolyte solution 4 Liter bottle) (Same as: Golytely, Colyte) Start Date: 02/15/16 Stop Date: 02/15/16 Status: CompletedhydrALAZINE 10 mg oral tablet 10 mg, 1 tab, Route: PO, Drug form: TAB, Q6H, Dosing Weight 90.909, kg, PRN Hypertension, Start date: 02/15/16 18:31:00 CDT, Duration: 30 day, Stop date: 18:30:00 CDT, SBP >165 Notes: (Same as: Apresoline) May interfere w/enteral feedings.Take With Food Start Date: 02/15/16 Stop Date: 02/20/16 Status: DiscontinuedhydrOXYzine hydrochloride 25 mg oral tablet 25 mg, 1 tab, Route: PO, Drug form: TAB, TID, Dosing Weight 96.989, kg, PRN Itching, Start date: 02/16/16 11:40:00 CDT, Duration: 30 day, Stop date: 11:39:00 CDT Notes: (Same as: Atarax) Avoid alcohol. Start Date: 02/16/16 Stop Date: 02/20/16 Status: Discontinuedlabetalol 5 mg, 1 mL, Route: IVP, Drug form: INJ, Q3H, Dosing Weight 90.909, kg, PRN Hypertension, Start date:02/15/16 18:31:00 CDT, Duration: 30 day, Stop date: 18:30:00 CDT, SBP >165 B/L Notes: (Same as: Normodyne, Trandate)Push over 2 minutes Give bolus over 2-3 minutes. Start Date: 02/15/16 Stop Date: 02/20/16 Status: Discontinuedlactulose 10 gm, 15 ml, Route: PO, Drug Form: SYRP, Dosing Weight 90.909, kg, Daily, PRN Constipation, Start date: 02/15/16 18:31:00 CDT, Duration: 30 day, Stop date: 18:30:00 CDT Notes: (Same as:Chronulac) Start Date: 02/15/16 Stop Date: 02/16/16 Status: Discontinuedlactulose 20 gm, 30 ml, Route: PO, Drug Form: SYRP, Dosing Weight 96.989, kg, TID, Start date: 02/16/16 13:00:00 CDT, Duration: 30 day, Stop date: 03/17/16 9:00:00 CDT Notes: (Same as:Chronulac) Start Date: 02/16/16 Stop Date: 02/17/16 Status: Discontinuedlactulose 10 g/15 mL oral syrup 10 gm=15 mL, PO, BID, PRN constipation, No refill, X 16 day, # 240 mL, 0 Refill( s) Start Date: 02/20/16 Stop Date: 03/07/16 Status: Orderedmeclizine 12.5 mg, 1 tab, Route: PO, Drug form: TAB, TID, Dosing Weight 96.989, kg, PRN Dizziness, Start date:02/16/16 11:40:00 CDT, Duration: 30 day, Stop date: 11:39:00 CDT Notes: (Same as: Antivert) Start Date: 02/16/16 Stop Date: 02/20/16 Status: Discontinuedmelatonin 3 mg oral tablet 3 mg, 1 tab, Route: PO, Drug Form: TAB, Dosing Weight 90.909, kg, Bedtime, PRN as needed for insomnia, Start date: 02/15/16 18:31:00 CDT, Duration: 30 day, Stop date: 03/16/16 18:30:00 CDT Notes: (Same as: Melatonin) Start Date: 02/15/16 Stop Date: 02/20/16 Status: DiscontinuedmetroNIDAZOLE 500 mg, 100 mL, Route: IVPB, Drug form: INJ, ONCE, Dosing Weight 90.909, kg, Priority: STAT, Start date: 02/15/16 16:38:00 CDT, Stop date: 02/15/16 16:38:00 CDT Notes: (Same as: Flagyl) Avoid alcohol. Start Date: 02/15/16 Stop Date: 02/15/16 Status: CompletedMiraLax 17 gm, 1 pkt, Route: PO, Drug form: PWDR, Daily, Dosing Weight 96.989, kg, Start date: 02/16/16 11:39:00 CDT, Duration: 30 day, Stop date: 03/17/16 9:00: 00 CDT Notes: Dissolve in 8 oz of water or juice.(Same as: Miralax) Start Date: 02/16/16 Stop Date: 02/20/16 Status: Discontinuedmontelukast 10 mg, 1 tab, Route: PO, Drug form: TAB, Daily, Dosing Weight 96.989, kg, Start date: 02/17/16 9:00:00 CDT, Duration: 30 day, Stop date: 03/17/16 9:00:00 CDT Notes: (Same as:Singulair) Start Date: 02/17/16 Stop Date: 02/20/16 Status: Discontinuedmorphine Sulfate 2 mg, 1 mL, Route: IVP, Drug form: INJ, Q4H, Dosing Weight 90.909, kg, PRN Chest Pain, Start date: 02/15/16 17:03:00 CDT, Duration: 30 day, Stop date: 17:02:00 CDT Notes: (Same as:MORPhine Sulfate) Start Date: 02/15/16 Stop Date: 02/16/16 Status: Discontinuedmorphine Sulfate 2 mg, Route: IVP, Drug form: INJ, ONCE, Dosing Weight 90.909, kg, Priority: STAT , Start date: 02/15/16 11:57:00 CDT, Stop date: 02/15/16 11:57:00 CDT Start Date: 02/15/16 Stop Date: 02/15/16 Status: Completedmorphine Sulfate 2 mg, 1 mL, Route: IVP, Drug form: INJ, Q4H, Dosing Weight 90.909, kg, PRN Pain Score 7-10, Start date: 02/15/16 18:31:00 CDT, Duration: 30 day, Stop date: 18:30:00 CDT Notes: (Same as:MORPhine Sulfate) Start Date: 02/15/16 Stop Date: 02/17/16 Status: Discontinuedmorphine Sulfate 4 mg, 1 mL, Route: IVP, Drug form: INJ, ONCE, Dosing Weight 90.909, kg, Priority : STAT, Start date: 02/15/16 14:31:00 CDT, Stop date: 02/15/16 14:31:00 CDT Notes: (Same as:MORPhine Sulfate) Start Date: 02/15/16 Stop Date: 02/15/16 Status: Completedpancrelipase 24,000 units-76,000 units-120,000 units oral delayed release capsule (Creon 24,000) 3 cap, Route: PO, Drug Form: DRC, Dosing Weight 96.989, kg, QID, Start date: 17:00:00 CDT, Duration: 30 day, Stop date: 03/17/16 13:00:00 CDT Notes: Same as: Creon DRC 24 : lipase 24,000 units, protease 76,000 units, amylase 120,000 units Start Date: 02/16/16 Stop Date: 02/20/16 Status: Discontinuedpancrelipase 24,000 units-76,000 units-120,000 units oral delayed release capsule (Creon 24,000) 3 cap, PO, QID, # 120 cap, 0 Refill(s) Start Date: 02/16/16 Status: Orderedphenol topical 1.4% spray 1 spray, Route: MUCOUS MEM, Q1H, Drug form: SPRY, PRN Sore Throat, Start date: 02/15/16 21:52:00 CDT, Duration: 30 day, Stop date: 03/16/16 21:51:00 CDT Notes: Chloraseptic Devine(Same as: Chloraseptic, Sore Throat Devine)WASTE: F/P - Black; E - MunicipalTrash Bin Start Date: 02/15/16 Stop Date: 02/20/16 Status: Discontinuedpotassium chloride 20 mEq, 1 tab, Route: PO, Drug form: ERTAB, ONCE, Dosing Weight 90.909, kg, PRN Abnormal Lab Result,Start date: 02/15/16 18:31:00 CDT, serum Potassium <3.6 Notes: (Same as: K-Dur 20)"Do Not Crush" With food and full glass of water Start Date: 02/15/16 Stop Date: 02/20/16 Status: DiscontinuedProtonix 40 mg, Route: IVP, Drug form: INJ, BID, Dosing Weight 96.989, kg, Priority: NOW , Start date: 02/17/16 12:01:00 CDT, Stop date: 03/18/16 9:00:00 CDT Notes: For IV push reconstitute with 10 ml 0.9% sodium chloride and push over 2 minutes. (Same as: Protonix) Start Date: 02/17/16 Stop Date: 02/20/16 Status: DiscontinuedReglan 10 mg, 2 mL, Route: IVP, Drug form: INJ, Q6H, Dosing Weight 90.909, kg, PRN Nausea & Vomiting, Start date: 02/15/16 17:03:00 CDT, Duration: 30 day, Stop date: 03/16/16 17:02:00 CDT Notes: (Same as: Reglan) Start Date: 02/15/16 Stop Date: 02/20/16 Status: DiscontinuedReglan 10 mg oral tablet 10 mg, 1 tab, Route: PO, Drug form: TAB, QID-Before Meals, Dosing Weight 96.989 , kg, Start date: 02/16/16 16:30:00 CDT, Duration: 30 day, Stop date: 03/17/16 11:30:00 CDT Notes: (Same as: Reglan) Take 30 min before meals Start Date: 02/16/16 Stop Date: 02/17/16 Status: DiscontinuedReglan 10 mg oral tablet 10 mg, 1 tab, Route: PO, Drug form: TAB, TID-Before Meals, Dosing Weight 96.989 , kg, Start date: 02/17/16 16:30:00 CDT, Duration: 30 day, Stop date: 03/18/16 11:30:00 CDT Notes: (Same as: Reglan) Take 30 min before meals Start Date: 02/17/16 Stop Date: 02/20/16 Status: DiscontinuedSaline Flush 0.9% 10 mL, Route: IVP, Drug Form: INJ, Dosing Weight 90.909, kg, PRN, PRN Line Flush , Start date: 02/15/16 11:39:00 CDT, Duration: 30 day, Stop date: 03/16/16 11:38 :00 CDT Notes: (Same as: BD Posiflush) Start Date: 02/15/16 Stop Date: 02/20/16 Status: Discontinuedsenna 8.6 mg, 1 tab, Route: PO, Drug Form: TAB, Dosing Weight 96.989, kg, Daily, Start date: 02/17/16 9:00:00 CDT, Duration: 30 day, Stop date: 03/17/16 9:00:00 CDT Notes: (Same as: Senokot) Start Date: 02/17/16 Stop Date: 02/20/16 Status: Discontinuedsucralfate 1 gm, 1 tab, Route: PO, Drug form: TAB, Before Meals & Bedtime, Dosing Weight 96.989, kg, Start date: 02/17/16 16:30:00 CDT, Duration: 30 day, Stop date: 03/18/16 11:30:00 CDT Notes: May interfere w/enteral feeds - Take 1 hr before or 2 hr after antacids , dairy pdt, meals & minerals - On empty stomach. (Same As: Carafate) Start Date: 02/17/16 Stop Date: 02/17/16 Status: CanceledTylenol 325 mg, 1 tab, Route: PO, Drug form: TAB, Q6H, Dosing Weight 90.909, kg, PRN Pain Score 1-3, Start date: 02/15/16 18:31:00 CDT, Duration: 30 day, Stop date: 03/16/16 18:30:00 CDT Notes: Do not exceed 4 gm/day. (Same as: Tylenol) Start Date: 02/15/16 Stop Date: 02/20/16 Status: DiscontinuedTylenol 650 mg, 2 tab, Route: PEG, Drug form: TAB, Q4H, Dosing Weight 90.909, kg, PRN Pain 1-3/Temp > 100.4 F, Start date: 02/15/16 18:31:00 CDT, Duration: 30 day, Stop date: 03/16/16 18:30:00 CDT, Pediatric Dosing Notes: Do not exceed 4 gm/day. (Same as: Tylenol) Start Date: 02/15/16 Stop Date: 02/20/16 Status: Discontinuedvancomycin + Sodium Chloride 0.9% IV 250 mL 1,000 mg, Route: IVPB, [id number], Start date: 02/16/16 18:00:00 CDT, Duration: 30 day, Stop date: 03/17/16 6:00:00 CDT Notes: TIME CRITICAL MEDICATION(Same As: Vancocin)Infusion rate< 1000 mg: infuse over 1 [id number] - 1500 mg: infuse over 1.5 [id number] - 2000 mg: infuse over 2 hours> 2001 mg: infuse over 2.5 hours MEDICATION WASTE Product Size: 1000 mgProduct Wasted: ___ mg Start Date: 02/16/16 Stop Date: 02/20/16 Status: DiscontinuedZofran 4 mg, 2 mL, Route: IV, Drug form: INJ, Q6H, Dosing Weight 90.909, kg, PRN Nausea , Start date: 02/15/16 18:31:00 CDT, Duration: 30 day, Stop date: 03/16/16 18:30 :00 CDT Notes: (Same as: Zofran) MEDICATION WASTE Product Size: 4 mgProduct Wasted: ___ mg Start Date: 02/15/16 Stop Date: 02/20/16 Status: DiscontinuedZofran 4 mg, Route: IVP, Drug form: INJ, ONCE, Dosing Weight 90.909, kg, Priority: STAT , Start date: 02/15/16 11:58:00 CDT, Stop date: 02/15/16 11:58:00 CDT Start Date: 02/15/16 Stop Date: 02/15/16 Status: Completed Results ELECTROLYTES Most recent to oldest 1 2 3 [Reference Range]: Sodium Lvl [135-145 mEq/L] 140 mEq/L 142 mEq/L 139 mEq/L (02/19/16 6:13 AM) (02/18/16 5:29 AM) (02/17/16 3:32 AM) Potassium Lvl [3.5-5.1 mEq/L] 3.9 mEq/L 3.7 mEq/L 3.5 mEq/L (02/19/16 6:13 AM) (02/18/16 5:29 AM) (02/17/16 3:32 AM) Chloride Lvl [95-109 mEq/L] 107 mEq/L 109 mEq/L 102 mEq/L (02/19/16 6:13 AM) (02/18/16 5:29 AM) (02/17/16 3:32 AM) CO2 [24-32 mEq/L] 24 mEq/L 26 mEq/L 27 mEq/L (02/19/16 6:13 AM) (02/18/16 5:29 AM) (02/17/16 3:32 AM) AGAP [10.0-20.0 mEq/L] 12.9 mEq/L 10.7 mEq/L 13.5 mEq/L (02/19/16 6:13 AM) (02/18/16 5:29 AM) (02/17/16 3:32 AM) CHEM PANEL Most recent to oldest 1 2 3 [Reference Range]: Creatinine Lvl [0.50-1.40 0.70 mg/dL 0.90 mg/dL 0.90 mg/dL mg/dL] (02/19/16 6:13 AM) (02/18/16 5:29 AM) (02/17/16 3:32 AM) eGFR 113 mL/min/1.73m2 1 83 mL/min/1.73m2 2 83 mL/min/1.73m2 3 *NA* *NA* *NA* (02/19/16 6:13 AM) (02/18/16 5:29 AM) (02/17/16 3:32 AM) BUN [7-22 mg/dL] 6 mg/dL 6 mg/dL 9 mg/dL *LOW* *LOW* (02/17/16 3:32 AM) (02/19/16 6:13 AM) (02/18/16 5:29 AM) B/C Ratio [6-25] 11 8 (02/16/16 6:32 AM) (02/15/16 12:37 PM) Glucose Lvl [70-99 mg/dL] 107 mg/dL 107 mg/dL 105 mg/dL *HI* *HI* *HI* (02/19/16 6:13 AM) (02/18/16 5:29 AM) (02/17/16 3:32 AM) Total Protein [6.4-8.4 6.9 g/dL 7.0 g/dL 7.0 g/dL g/dL] (02/19/16 6:13 AM) (02/18/16 5:29 AM) (02/17/16 3:32 AM) Albumin Lvl [3.5-5.0 g/dL] 2.7 g/dL 2.8 g/dL 2.7 g/dL *LOW* *LOW* *LOW* (02/19/16 6:13 AM) (02/18/16 5:29 AM) (02/17/16 3:32 AM) Globulin [2.0-4.0 g/dL] 4.2 g/dL 4.2 g/dL 4.3 g/dL *HI* *HI* *HI* (02/19/16 6:13 AM) (02/18/16 5:29 AM) (02/17/16 3:32 AM) A/G Ratio [0.7-1.6] 0.6 0.7 0.6 *LOW* (02/18/16 5:29 AM) *LOW* (02/19/16 6:13 AM) (02/17/16 3:32 AM) Calcium Lvl [8.5-10.5 8.4 mg/dL 8.4 mg/dL 8.4 mg/dL mg/dL] *LOW* *LOW* *LOW* (02/19/16 6:13 AM) (02/18/16 5:29 AM) (02/17/16 3:32 AM) ALT [0-65 unit/L] 43 unit/L 58 unit/L 71 unit/L (02/19/16 6:13 AM) (02/18/16 5:29 AM) *HI* (02/17/16 3:32 AM) AST [0-37 unit/L] 18 unit/L 33 unit/L 59 unit/L (02/19/16 6:13 AM) (02/18/16 5:29 AM) *HI* (02/17/16 3:32 AM) Alk Phos [39-136 unit/L] 155 unit/L 150 unit/L 159 unit/L *HI* *HI* *HI* (02/19/16 6:13 AM) (02/18/16 5:29 AM) (02/17/16 3:32 AM) Bili Total [0.2-1.3 mg/dL] 0.2 mg/dL 0.2 mg/dL 0.3 mg/dL (02/19/16 6:13 AM) (02/18/16 5:29 AM) (02/17/16 3:32 AM) Bili Direct [0.0-0.3 mg/dL] <0.1 mg/dL <0.1 mg/dL 0.1 mg/dL (02/19/16 6:13 AM) (02/18/16 5:29 AM) (02/17/16 3:32 AM) Bili Indirect [0.0-1.0] Unable to Calculate Unable to Calculate *NA* *NA* (02/19/16 6:13 AM) (02/18/16 5:29 AM) Bili Indirect [0.0-1.0 0.2 mg/dL mg/dL] (02/17/16 3:32 AM) Amylase Lvl [25-115 unit/L] 77 unit/L (02/15/16 12:37 PM) Lipase Lvl [73-393 unit/L] 187 unit/L (02/15/16 12:37 PM) Procalcitonin Lvl <0.05 ng/mL [0.00-0.10 ng/mL] (02/17/16 3:32 AM) 1Result Comment: The eGFR is calculated using [...] eGFR should be multiplied by the estimated BMI.CARDIAC ENZYMES Most recent to oldest [Reference Range]: 1 2 3 Total CK [12-191 unit/L] 124 unit/L (02/15/16 12:37 PM) CK MB [0.5-3.6 ng/mL] <0.5 ng/mL (02/15/16 12:37 PM) CK MB Index [0.0-2.5] <0.4 (02/15/16 12:37 PM) Troponin-I [0.00-0.40 ng/mL] <0.02 ng/mL (02/15/16 12:37 PM) TOXICOLOGY Most recent to oldest [Reference Range]: 1 2 3 Vanco Tr TND 0600 *NA* (02/18/16 5:29 AM) Vanco Tr 12.8 ug/ml *NA* (02/18/16 5:29 AM) URINE AND STOOL Most recent to oldest [Reference Range]: 1 2 3 UA Turbidity [Clear] Clear (02/15/16 12:37 PM) UA Color [Yellow] Yellow *NA* (02/15/16 12:37 PM) UA pH [5.0-8.0] 7.5 (02/15/16 12:37 PM) UA Spec Grav [<=1.030] 1.010 (02/15/16 12:37 PM) UA Glucose [Negative mg/dL] Negative mg/dL (02/15/16 12:37 PM) UA Blood [Negative] Negative (02/15/16 12:37 PM) UA Ketones [Negative mg/dL] Negative mg/dL *NA* (02/15/16 12:37 PM) UA Protein [Negative mg/dL] Negative mg/dL (02/15/16 12:37 PM) UA Urobilinogen [0.1-1.0 EU/dL] 0.2 EU/dL (02/15/16 12:37 PM) UA Bili [Negative] Negative *NA* (02/15/16 12:37 PM) UA Leuk Est [Negative] Negative (02/15/16 12:37 PM) UA Nitrite [Negative] Negative (02/15/16 12:37 PM) UA WBC [None Seen /HPF] 0-2 /HPF (02/15/16 12:37 PM) UA RBC [0-2] None Seen (02/15/16 12:37 PM) UA Bacteria [None Seen /HPF] Occasional /HPF (02/15/16 12:37 PM) UA Sq Epi [Few /LPF] Few /LPF (02/15/16 12:37 PM) IMMUNOLOGY Most recent to oldest [Reference Range]: 1 2 3 CRP [<=2.9 mg/L] 14.7 mg/L *HI* (02/19/16 6:13 AM) Hep Bs Ag [Negative] Negative *NA* (02/17/16 12:14 PM) Hep B Core IgM [Negative] Negative *NA* (02/17/16 12:14 PM) Hep Bs Ab [<=7.4 mIU/mL] 131.4 mIU/mL *HI* (02/17/16 12:14 PM) Hep A IgM [Negative] Negative *NA* (02/17/16 12:14 PM) Hep C Ab Negative *NA* (02/17/16 12:14 PM) HEMATOLOGY Most recent to oldest 1 2 3 [Reference Range]: WBC [3.7-10.4 K/CMM] 15.9 K/CMM 16.8 K/CMM 14.2 K/CMM *HI* *HI* *HI* (02/20/16 5:54 AM) (02/19/16 6:13 AM) (02/18/16 5:29 AM) RBC [4.20-5.40 M/CMM] 3.85 M/CMM 3.82 M/CMM 4.31 M/CMM *LOW* *LOW* (02/18/16 5:29 AM) (02/20/16 5:54 AM) (02/19/16 6:13 AM) Hgb [12.0-16.0 g/dL] 9.3 g/dL 9.4 g/dL 10.1 g/dL *LOW* *LOW* *LOW* (02/20/16 5:54 AM) (02/19/16 6:13 AM) (02/18/16 5:29 AM) Hct [36.0-48.0 %] 28.9 % 28.7 % 32.6 % *LOW* *LOW* *LOW* (02/20/16 5:54 AM) (02/19/16 6:13 AM) (02/18/16 5:29 AM) MCV [80.0-98.0 fL] 75.1 fL 75.2 fL 75.8 fL *LOW* *LOW* *LOW* (02/20/16 5:54 AM) (02/19/16 6:13 AM) (02/18/16 5:29 AM) MCH [27.0-31.0 pg] 24.3 pg 24.5 pg 23.4 pg *LOW* *LOW* *LOW* (02/20/16 5:54 AM) (02/19/16 6:13 AM) (02/18/16 5:29 AM) MCHC [32.0-36.0 g/dL] 32.4 g/dL 32.6 g/dL 30.9 g/dL (02/20/16 5:54 AM) (02/19/16 6:13 AM) *LOW* (02/18/16 5:29 AM) RDW [11.5-14.5 %] 16.0 % 16.4 % 16.4 % *HI* *HI* *HI* (02/20/16 5:54 AM) (02/19/16 6:13 AM) (02/18/16 5:29 AM) Platelet [133-450 K/CMM] 357 K/CMM 357 K/CMM 373 K/CMM (02/20/16 5:54 AM) (02/19/16 6:13 AM) (02/18/16 5:29 AM) MPV [7.4-10.4 fL] 8.0 fL 7.9 fL 8.0 fL (02/20/16 5:54 AM) (02/19/16 6:13 AM) (02/18/16 5:29 AM) Segs [45.0-75.0 %] 64.6 % 67.6 % 67.8 % (02/20/16 5:54 AM) (02/19/16 6:13 AM) (02/18/16 5:29 AM) Lymphocytes [20.0-40.0 %] 22.4 % 20.1 % 18.5 % (02/20/16 5:54 AM) (02/19/16 6:13 AM) *LOW* (02/18/16 5:29 AM) Monocytes [2.0-12.0 %] 10.1 % 9.9 % 10.7 % (02/20/16 5:54 AM) (02/19/16 6:13 AM) (02/18/16 5:29 AM) Eosinophils [0.0-4.0 %] 2.4 % 2.0 % 2.5 % (02/20/16 5:54 AM) (02/19/16 6:13 AM) (02/18/16 5:29 AM) Basophils [0.0-1.0 %] 0.5 % 0.4 % 0.5 % (02/20/16 5:54 AM) (02/19/16 6:13 AM) (02/18/16 5:29 AM) Segs-Bands # [1.5-8.1 K/CMM] 10.3 K/CMM 11.3 K/CMM 9.6 K/CMM *HI* *HI* *HI* (02/20/16 5:54 AM) (02/19/16 6:13 AM) (02/18/16 5:29 AM) Lymphocytes # [1.0-5.5 3.6 K/CMM 3.4 K/CMM 2.6 K/CMM K/CMM] (02/20/16 5:54 AM) (02/19/16 6:13 AM) (02/18/16 5:29 AM) Monocytes # [0.0-0.8 K/CMM] 1.6 K/CMM 1.7 K/CMM 1.5 K/CMM *HI* *HI* *HI* (02/20/16 5:54 AM) (02/19/16 6:13 AM) (02/18/16 5:29 AM) Eosinophils # [0.0-0.5 0.4 K/CMM 0.3 K/CMM 0.4 K/CMM K/CMM] (02/20/16 5:54 AM) (02/19/16 6:13 AM) (02/18/16 5:29 AM) Basophils # [0.0-0.2 K/CMM] 0.1 K/CMM 0.1 K/CMM 0.1 K/CMM (02/20/16 5:54 AM) (02/19/16 6:13 AM) (02/18/16 5:29 AM) Microcyte [None Seen] 1+ 1+ 1+ *ABN* *ABN* *ABN* (02/20/16 5:54 AM) (02/19/16 6:13 AM) (02/18/16 5:29 AM) Sed Rate [0-20 mm/hr] 30 mm/hr *HI* (02/19/16 6:13 AM) PT [12.0-14.7 seconds] 13.8 seconds (02/15/16 12:37 PM) INR [0.85-1.17] 1.03 (02/15/16 12:37 PM) PTT [22.9-35.8 seconds] 32.0 seconds (02/15/16 12:37 PM) Immunizations No data available for this section Procedures Procedure Date Related Diagnosis Body Site Appendectomy Brain excision1 Diskectomy Fusion of cervicothoracic joint by posterior approach Gallbladder operation Hysterectomy 1brain surgery to repain nerve Social History Social History Type Response Substance [...] she quit smoking 04/2015 Assessment and Plan Extracted from: Title: Clinical Document Author: Adrianne Delgado MD Date: 02/19/16 Progress Daily Attending: Adrianne Delgado MD Service: General Surgery Service Cross-coverage for Dr. Kinney SUBJECTIVE: Denies nausea or abdominal pain. Having multiple BMs. Wants to go home. OBJECTIVE: AF, VSS Patient lying in bed, NAD Breathing comfortably on RA Abdominal soft, ND, NTTP Labs: WBC 16 (no shift) <-- 14 ASSESSMENT: 55 year old woman presents with leukocytosis and extensive stool in the colon without findings of obstruction. Abdominal pain has resolved and patient doing much better. However, leukocytosis is slightly higher today. PLAN & TREATMENT: - Okay to discharge home from surgery standpoint and follow-up with Dr. Kinney in clinic to discuss surgical options for these multiple episodes of fecal impaction.
--- OUTSIDE RECORDS SUMMARY | 2018-10-23 12:17 | XMS REPORT | Summary of Care ---
:1960 Author Organization [facility] Address [address], [place] [address]- Encounter HQ Isaac([facility]) [phone] Date(s): 08/22/16 - 08/22/16 [facility] [address] [place] [address]- Discharge Disposition: Home or Self Care Attending Physician: Andres Jauregui MD Referring Physician: Andres Jauregui MD Vital Signs Most recent to oldest [Reference Range]: 1 Height 157.48 cm (08/21/16 10:52 AM) Weight 87.273 kg (08/21/16 10:52 AM) Body Mass Index 35.19 m2 (08/21/16 10:52 AM) Problem List Condition Effective Dates Status Health Status Informant Anxiety(Confirmed) 09/07/12 Active Asthma(Confirmed) Active ASTHMA(Confirmed) Resolved Bronchitis(Confirmed) Resolved Bulging disc(Confirmed) Resolved CAD - Coronary artery Active disease(Confirmed) Chest pain(Confirmed) 09/01/12 Active Congestive heart failure(Confirmed) Resolved Gastritis(Confirmed) Active GERD - Gastro-esophageal reflux Active disease(Confirmed) Heartburn(Confirmed) Active HTN - Hypertension(Confirmed) Resolved HTN - Hypertension(Confirmed) Active Mitral valve prolapse(Confirmed) Active Neuropathy (nerve damage)(Confirmed) Resolved Pancreatitis(Confirmed) Active Allergies, Adverse Reactions, Alerts Substance Reaction Severity Status Benadryl hives Active Kenalog paralysis Active Kenalog levabid hives Active levofloxacin bumps Active norepinephrine1 hives Active penicillins nausea Active pentazocine2 hives Active Talwin hives Active unfunctional Tape blister Active triamcinolone topical3 hives Active 1Data migrated from [employer] on 02/15/15. Originally documented as [email or web address].2Data migrated from [employer] on 02/15/15. Originally documented as [email or web address].3Data migrated from [facility] on 02/15/15. Originally documented as KENALOG. 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 Notes: (Same as: Romazicon) Start Date: 08/22/16 Stop Date: 08/23/16 Status: Discontinuedflumazenil 0.2 mg, 2 mL, Route: IVP, Drug form: INJ, ONCE, Dosing Weight 87.273, kg, PRN Benzodiazepine Reversal, Start date: 08/22/16 9:00:00 CDT, Initial dose Notes: (Same as: Romazicon) Start Date: 08/22/16 Stop Date: 08/23/16 Status: Discontinuednaloxone 0.1 mg, 0.25 mL, Route: IVP, Drug form: INJ, Q2MIN, Dosing Weight 87.273, kg, PRN Narcotic Reversal,Start date: 08/22/16 9:00:00 CDT, Duration: 4 doses or times, Stop date: Limited # of times Notes: Same as Narcan Start Date: 08/22/16 Stop Date: 08/23/16 Status: Discontinued Results MOLECULAR DIAGNOSTIC Most recent to oldest [Reference Range]: 1 Source Adenovirus PCR Bronch Myranda. Lavage (08/22/16 9:49 AM) Source Parainfluenza Virus PCR Bronch Myranda. Lavage 1 (08/22/16 9:49 AM) Parainfluenza 1 PCR [Negative] Negative (08/22/16 9:49 AM) Parainfluenza 2 PCR [Negative] Negative (08/22/16 9:49 AM) Parainfluenza 3 PCR [Negative] Negative (08/22/16 9:49 AM) Source Respiratory Panel PCR Bronch Myranda. Lavage 2 (08/22/16 9:49 AM) Influenza A PCR [Negative] Negative (08/22/16 9:49 AM) Influenza B PCR [Negative] Negative (08/22/16 9:49 AM) RSV PCR [Negative] Negative (08/22/16 9:49 AM) Adenovirus PCR [Negative] Negative (08/22/16 9:49 AM) 1Result Comment: Reagents are FDA approved for nasopharyngeal samples only. The testing of any other sample source does not have FDA approval.2Result Comment: Reagents are FDA approved for nasopharyngeal samples only. The testing of any other sample source does not have FDA approval. Immunizations No data available for this section Procedures Procedure Date Related Diagnosis Body Site Appendectomy Brain excision1 Diskectomy Fusion of cervicothoracic joint by posterior approach Gallbladder operation Hysterectomy 1brain surgery to repain nerve Social History Social History Type Response Substance Abuse Use: Past. Type: Marijuana. Exercise Exercise duration: 15. Exercise frequency: Daily. Employment/School Operates hazardous equipment: No. Alcohol Current, Type Beer, Wine. Frequency: 1-2 times per year. Previous treatment: None. Smoking Status Current every day smoker; Type: Cigarettes; Tobacco use per day : 40; Number of years: 20; Previous treatment: None; Exposure to Tobacco Smoke None; Other Tobacco Frequency pt states quit 6 mos ago; Cigarette Smoking Last 365 Days No; Reg Smoking Cessation Counseling No1 1Pt reports she quit smoking 04/2015 Assessment and Plan No data available for this section
--- OUTSIDE RECORDS SUMMARY | 2018-10-23 12:17 | XMS REPORT | Summary of Care ---
:1960 Author Organization [facility] Address [facility] [place], [place] [address]- Care Team Providers Name Role Phone Dread Stein III Primary Care Physician Encounter HQ Giselentr_devon(FIN) [id number] Date(s): 03/24/16 - 03/28/[address] [address]- Discharge Disposition: Home Attending Physician: Antonio Bowen MD Admitting Physician: Antonio Bowen MD Vital Signs Most recent to oldest [Reference 1 2 3 Range]: Height 160.02 cm (03/24/16 5:49 AM) Temperature Oral [96.4-99.1 DegF] 98.1 DegF 97.7 DegF 97.8 DegF (03/28/16 11:31 AM) (03/28/16 3:47 AM) (03/27/16 8:24 PM) Blood Pressure [90-140/60-90 129/83 mmHg 128/73 mmHg 104/65 mmHg mmHg] (03/28/16 11:31 AM) (03/28/16 8:04 AM) (03/28/16 3:47 AM) Respiratory Rate [14-20 BRMIN] 20 BRMIN 20 BRMIN 18 BRMIN (03/28/16 11:31 AM) (03/28/16 8:04 AM) (03/28/16 3:47 AM) Peripheral Pulse Rate [60-100 99 bpm 95 bpm 93 bpm bpm] (03/28/16 11:31 AM) (03/28/16 8:04 AM) (03/28/16 3:47 AM) Weight 94 kg (03/24/16 5:49 AM) Body Mass Index 36.71 m2 (03/24/16 5:49 AM) Problem List Condition Effective Dates Status [...] on 02/15/15. Originally documented as KENALOG. Medications acetaminophen-codeine 300 mg-30 mg oral tablet 2 tab, Route: PO, Drug Form: TAB, Q6H, PRN Pain Score 1-5, Start date: 03/24/16 7:30:00 CDT, Duration: 30 day, Stop date: 04/23/16 7:29:00 CDT Notes: Do not exceed 4gm/day of acetaminophen. (Same as: Tylenol with Codeine # 3) Start Date: 03/24/16 Stop Date: 03/24/16 Status: Discontinuedacetaminophen-codeine 300 mg-30 mg oral tablet 1 tab, Route: PO, Drug Form: TAB, Q6H, PRN Pain 4-6/Temp > 100.4 F, Start date: 03/24/16 7:29:00 CDT, Duration: 30 day, Stop date: 04/23/16 7:28:00 CDT Notes: Do not exceed 4gm/day of acetaminophen. (Same as: Tylenol with Codeine # 3) Start Date: 03/24/16 Stop Date: 03/24/16 Status: Discontinuedacetaminophen-hydrocodone 325 mg-10 mg oral tablet 1 tab, Route: PO, Drug Form: TAB, Q4H, PRN Pain Score 4-6, Start date: 03/24/16 20:50:00 CDT, Duration: 30 day, Stop date: 04/23/16 20:49:00 CDT Notes: Do not exceed 4gm/day of acetaminophen. (Same as: Mcgrath 325/10) Start Date: 03/24/16 Stop Date: 03/28/16 Status: Discontinuedacetaminophen-hydrocodone 325 mg-10 mg oral tablet 1 tab, Route: PO, Drug Form: TAB, ONCE, Start date: 03/25/16 11:05:00 CDT, Stop date: 03/25/16 11:05:00 CDT Notes: Do not exceed 4gm/day of acetaminophen. (Same as: Mcgrath 325/10) Start Date: 03/25/16 Stop Date: 03/25/16 Status: Completedalbuterol 0.083% inhalation solution 2.49 mg, 3 mL, Route: NEB, Drug form: SOLN, RQ6H, Start date: 03/24/16 14:00:00 CDT, Duration: 30 day, Stop date: 04/23/16 8:00:00 CDT Notes: SEE RT DOCUMENTATION (Same as: Proventil) Start Date: 03/24/16 Stop Date: 03/28/16 Status: Discontinuedalbuterol 0.5% inhalation solution 2.5 mg, 0.5 mL, Route: INHALATION, Q6H, Dosing Weight 94, kg, Start date: 18:00:00 CDT, Duration: 30 day, Stop date: 04/23/16 12:00:00 CDT Start Date: 03/24/16 Stop Date: 03/24/16 Status: Deletedamitriptyline 100 mg, 1 tab, Route: PO, Drug form: TAB, Bedtime, Dosing Weight 94, kg, Start date: 03/24/16 21:00:00 CDT, Duration: 30 day, Stop date: 04/22/16 21:00:00 CDT Notes: (Same as: Elavil) Start Date: 03/24/16 Stop Date: 03/28/16 Status: DiscontinuedBD Normal Saline Flush 10 mL, Route: IVP, Drug Form: INJ, PRN, PRN Line Flush, Start date: 03/24/16 7: 31:00 CDT, Duration: 30 day, Stop date: 04/23/16 7:30:00 CDT Notes: (Same as: BD Posiflush) Start Date: 03/24/16 Stop Date: 03/28/16 Status: Discontinuedbenzonatate 100 mg, 1 cap, Route: PO, Drug form: CAP, TID, Dosing Weight 94, kg, Start date : 03/24/16 17:00:00 CDT, Duration: 30 day, Stop date: 04/23/16 13:00:00 CDT Notes: (Same As: Naida Pearce)"Do Not Crush" Start Date: 03/24/16 Stop Date: 03/28/16 Status: Discontinuedcarvedilol 3.125 mg, 1 tab, Route: PO, Drug form: TAB, BID, Dosing Weight 94, kg, Start date: 03/24/16 17:00:00CDT, Duration: 30 day, Stop date: 04/23/16 9:00:00 CDT Notes: Give with food. (Same As: Coreg) Start Date: 03/24/16 Stop Date: 03/28/16 Status: Discontinuedcholestyramine 4 gm, 1 pkt, Route: PO, Drug form: PDR/REC, BID, Dosing Weight 94, kg, Start date: 03/26/16 17:00:00CDT, Duration: 30 day, Stop date: 04/25/16 9:00:00 CDT Notes: (Same As: Questran) Start Date: 03/26/16 Stop Date: 03/28/16 Status: Discontinuedcholestyramine 4 gm, PO, BID, 0 Refill(s) Start Date: 03/26/16 Status: OrderedCoumadin 7.5 mg, 1 tab, Route: PO, Drug form: TAB, QPM, Start date: 03/28/16 15:00:00 CDT , Duration: 30 day, Stop date: 04/26/16 15:00:00 CDT Notes: Nurse to ensure documentation of patient education per anticoagulation policy.Avoid large intake of vitamin-K containing foods diet.WASTE: F/P - P Waste Black; E - P Waste Black(Same As: Coumadin) Start Date: 03/28/16 Stop Date: 03/28/16 Status: DiscontinuedCoumadin 10 mg, 1 tab, Route: PO, Drug form: TAB, Q5PM, Start date: 03/25/16 11:08:00 CDT , Duration: 3 doses or times, Stop date: 03/26/16 17:00:00 CDT Notes: Nurse to ensure documentation of patient education per anticoagulation policy.Avoid large intake of vitamin-K containing foods diet.(Same As: Coumadin) WASTE: F/P - P Waste Black; E - P Waste Black Start Date: 03/25/16 Stop Date: 03/26/16 Status: CompletedCoumadin 5 mg oral tablet 5 mg=1 tab, PO, Daily, # 30 tab, 0 Refill(s) Start Date: 03/28/16 Status: Orderedesomeprazole 40 mg oral delayed release capsule 40 mg=1 cap, PO, Daily, # 30 cap, 0 Refill(s) Start Date: 03/26/16 Stop Date: 03/28/16 Status: Discontinuedferrous sulfate 325 mg, 1 tab, Route: PO, Drug form: TAB, TID, Dosing Weight 94, kg, Start date : 03/28/16 9:00:00 CDT, Duration: 30 day, Stop date: 04/26/16 17:00:00 CDT Notes: Give with food.iron elemental [id number]=[id number] as ferrous sulfateDose=___mg elemental iron Start Date: 03/28/16 Stop Date: 03/28/16 Status: Discontinuedfurosemide 40 mg oral tablet 40 mg=1 tab, PO, Daily, # 30 tab, 0 Refill(s) Start Date: 03/28/16 Status: OrderedhydrOXYzine hydrochloride 25 mg oral tablet 25 mg, 1 tab, Route: PO, Drug form: TAB, TID, Dosing Weight 94, kg, PRN Itching , Start date: 03/24/16 16:39:00 CDT, Duration: 30 day, Stop date: 04/23/16 16:38 :00 CDT Notes: (Same as: Atarax) Avoid alcohol. Start Date: 03/24/16 Stop Date: 03/28/16 Status: DiscontinuedKlor-Con 10 10 mEq, 1 tab, Route: PO, Drug form: ERTAB, Daily, Dosing Weight 94, kg, Start date: 03/25/16 9:00:00 CDT, Duration: 30 day, Stop date: 04/23/16 9:00:00 CDT Notes: (Same as: Brit-Jesus 10)"Do Not Crush" With food and full glass of water Start Date: 03/25/16 Stop Date: 03/28/16 Status: Discontinuedlactulose 30 gm, 45 mL, Route: PO, Drug form: SYRP, ONCE, Start date: 03/24/16 20:43:00 CDT, Stop date: 03/24/16 20:43:00 CDT Notes: (Same as:Chronulac) Start Date: 03/24/16 Stop Date: 03/24/16 Status: Completedlactulose 10 g/15 mL oral syrup 10 gm, 15 mL, Route: PO, Drug Form: SYRP, Dosing Weight 94, kg, BID, PRN Constipation, Start date: 03/27/16 12:18:00 CDT, Duration: 30 day, Stop date: 12:17:00 CDT Notes: (Same as:Chronulac) Start Date: 03/27/16 Stop Date: 03/28/16 Status: Discontinuedlactulose 10 g/15 mL oral syrup 10 gm=15 mL, PO, BID, PRN constipation, # 240 mL, 0 Refill(s) Start Date: 03/26/16 Stop Date: 04/11/16 Status: Orderedlosartan 100 mg, 2 tab, Route: PO, Drug form: TAB, Daily, Dosing Weight 94, kg, Start date: 03/25/16 9:00:00 CDT, Duration: 30 day, Stop date: 04/23/16 9:00:00 CDT Notes: (Same as: Pete) Start Date: 03/25/16 Stop Date: 03/28/16 Status: DiscontinuedLovenox 90 mg, 0.9 mL, Route: SUB-Q, Drug form: INJ, [id number], Start date: 03/24/16 8:00 :00 CDT, Duration: 30 day, Stop date: 04/23/16 2:00:00 CDT Notes: Nurse to ensure documentation of patient education per anticoagulation policy.(Same as: Lovenox) Start Date: 03/24/16 Stop Date: 03/28/16 Status: DiscontinuedLovenox 90 mg, 0.9 mL, Route: SUB-Q, Drug form: INJ, ONCE, Start date: 03/28/16 14:13: 00 CDT, Stop date: 03/28/16 14:13:00 CDT Notes: Nurse to ensure documentation of patient education per anticoagulation policy.(Same as: Lovenox) Start Date: 03/28/16 Stop Date: 03/28/16 Status: Completedmeclizine 12.5 mg, 1 tab, Route: PO, Drug form: TAB, TID, Dosing Weight 94, kg, PRN Dizziness, Start date: 03/24/16 16:40:00 CDT, Duration: 30 day, Stop date: 04/23 16:39:00 CDT Notes: (Same as: Antivert) Start Date: 03/24/16 Stop Date: 03/28/16 Status: Discontinuedmethocarbamol 750 mg, 1 tab, Route: PO, Drug form: TAB, TID, Dosing Weight 94, kg, Start date : 03/24/16 13:00:00 CDT, Duration: 30 day, Stop date: 04/23/16 9:00:00 CDT Notes: (Same as:Robaxin) Start Date: 03/24/16 Stop Date: 03/28/16 Status: Discontinuedmetolazone 10 mg oral tablet 10 mg=1 tab, PO, Daily, # 30 tab, 0 Refill(s) Start Date: 03/28/16 Status: OrderedMiraLax 17 gm, 1 pkt, Route: PO, Drug form: PWDR, Daily, Dosing Weight 94, kg, Start date: 03/27/16 9:00:00 CDT, Duration: 30 day, Stop date: 04/25/16 9:00:00 CDT Notes: Dissolve in 8 oz of water or juice.(Same as: Miralax) Start Date: 03/27/16 Stop Date: 03/28/16 Status: DiscontinuedMiraLax 17 gm, PO, Daily, 0 Refill(s) Start Date: 03/26/16 Status: Orderedmontelukast 10 mg, 1 tab, Route: PO, Drug form: TAB, Daily, Dosing Weight 94, kg, Start date : 03/25/16 9:00:00 CDT, Duration: 30 day, Stop date: 04/23/16 9:00:00 CDT Notes: (Same as:Ab) Start Date: 03/25/16 Stop Date: 03/28/16 Status: Discontinuedomeprazole 40 mg, Route: PO, Drug form: DRC, Daily, Dosing Weight 94, kg, Start date: 03/27 9:00:00 CDT, Duration: 30 day, Stop date: 04/25/16 9:00:00 CDT Start Date: 03/27/16 Stop Date: 03/26/16 Status: Deletedomeprazole 40 mg oral delayed release capsule 40 mg=1 cap, PO, Daily, # 30 cap, 0 Refill(s) Start Date: 03/26/16 Stop Date: 03/28/16 Status: Discontinuedpancrelipase 24,000 units-76,000 units-120,000 units oral delayed release capsule (Creon 24,000) 3 cap, Route: PO, Drug Form: DRC, Dosing Weight 94, kg, QID, Start date: 17:00:00 CDT, Duration: 30 day, Stop date: 04/23/16 13:00:00 CDT Notes: Same as: Creon DRC 24 : lipase 24,000 units, protease 76,000 units, amylase 120,000 units Start Date: 03/24/16 Stop Date: 03/28/16 Status: DiscontinuedpredniSONE 10 mg oral tablet 10 mg=1 tab, PO, Daily, X 30 day, # 30 tab, 0 Refill(s) Start Date: 03/28/16 Stop Date: 04/27/16 Status: OrderedProtonix 40 mg, 1 tab, Route: PO, Drug form: ECTAB, Before Dinner, Start date: 03/26/16 16:30:00 CDT, Duration: 30 day, Stop date: 04/24/16 16:30:00 CDT Notes: Tablet should not be chewed or crushed.(Same as: Protonix) Start Date: 03/26/16 Stop Date: 03/28/16 Status: DiscontinuedReglan 10 mg oral tablet 10 mg, 1 tab, Route: PO, Drug form: TAB, QID-Before Meals, Dosing Weight 94, kg , Start date: 03/24/16 21:00:00 CDT, Duration: 30 day, Stop date: 04/23/16 16:30 :00 CDT Notes: (Same as: Reglan) Take 30 min before meals Start Date: 03/24/16 Stop Date: 03/27/16 Status: Discontinuedsenna 8.6 mg oral tablet 8.6 mg, 1 tab, Route: PO, Drug Form: TAB, Dosing Weight 94, kg, BID, PRN Constipation, Start date: 03/24/16 16:43:00 CDT, Duration: 30 day, Stop date: 16:42:00 CDT Notes: (Same as: Senokot) Start Date: 03/24/16 Stop Date: 03/28/16 Status: DiscontinuedSodium Chloride 0.9% IV 250 mL, Route: IVPB, Start date: 03/24/16 7:31:00 CDT, Duration: 30 day, Stop date: 04/23/16 7:30:00CDT, PRN Line Flush Start Date: 03/24/16 Stop Date: 03/28/16 Status: Discontinuedsucralfate 1 gm, 1 tab, Route: PO, Drug form: TAB, Before Meals & Bedtime, Dosing Weight 94, kg, Start date: 03/24/16 21:00:00 CDT, Duration: 30 day, Stop date: 04/23/16 16:30:00 CDT Notes: May interfere w/enteral feeds - Take 1 hr before or 2 hr after antacids , dairy pdt, meals & minerals - On empty stomach. (Same As: Carafate) Start Date: 03/24/16 Stop Date: 03/28/16 Status: Discontinuedtramadol 25 mg, 0.5 tab, Route: PO, Drug form: TAB, Q8H, Dosing Weight 94, kg, PRN Pain Score 1-5, Start date: 03/24/16 12:05:00 CDT, Duration: 30 day, Stop date: 04/23 12:04:00 CDT Notes: Not to exceed 400mg/day. (Same As: Ultram) Start Date: 03/24/16 Stop Date: 03/24/16 Status: DiscontinuedZegerid 40 mg-1100 mg oral capsule 1 cap, PO, Daily, X 30 day, # 30 cap, 0 Refill(s) Start Date: 03/28/16 Stop Date: 04/27/16 Status: OrderedZofran 4 mg, 1 tab, Route: PO, Drug form: TAB, Q8H, PRN Nausea, Start date: 03/24/16 20 :44:00 CDT, Duration: 30 day, Stop date: 04/23/16 20:43:00 CDT Notes: (Same as: Zofran) Start Date: 03/24/16 Stop Date: 03/28/16 Status: Discontinued Results ELECTROLYTES Most recent to oldest 1 2 3 [Reference Range]: Sodium Lvl [135-145 mEq/L] 132 mEq/L 135 mEq/L 127 mEq/L *LOW* (03/26/16 5:25 AM) *LOW* (03/27/16 7:25 AM) (03/25/16 1:08 PM) Potassium Lvl [3.5-5.1 mEq/L] 3.6 mEq/L 3.4 mEq/L 3.9 mEq/L (03/27/16 7:25 AM) *LOW* (03/25/16 1:08 PM) (03/26/16 5:25 AM) Chloride Lvl [95-109 mEq/L] 97 mEq/L 98 mEq/L 93 mEq/L (03/27/16 7:25 AM) (03/26/16 5:25 AM) *LOW* (03/25/16 1:08 PM) CO2 [24-32 mEq/L] 29 mEq/L 29 mEq/L 25 mEq/L (03/27/16 7:25 AM) (03/26/16 5:25 AM) (03/25/16 1:08 PM) AGAP [10.0-20.0 mEq/L] 9.6 mEq/L 11.4 mEq/L 12.9 mEq/L *LOW* (03/26/16 5:25 AM) (03/25/16 1:08 PM) (03/27/16 7:25 AM) CHEM PANEL Most recent to oldest 1 2 3 [Reference Range]: Creatinine Lvl [0.50-1.40 1.00 mg/dL 1.10 mg/dL 1.20 mg/dL mg/dL] (03/27/16 7:25 AM) (03/26/16 5:25 AM) (03/25/16 1:08 PM) eGFR 73 mL/min/1.73m2 1 65 mL/min/1.73m2 2 59 mL/min/1.73m2 3 *NA* *NA* *NA* (03/27/16 7:25 AM) (03/26/16 5:25 AM) (03/25/16 1:08 PM) BUN [7-22 mg/dL] 12 mg/dL 16 mg/dL 13 mg/dL (03/27/16 7:25 AM) (03/26/16 5:25 AM) (03/25/16 1:08 PM) B/C Ratio [6-25] 12 (03/27/16 7:25 AM) Glucose Lvl [70-99 mg/dL] 125 mg/dL 129 mg/dL 126 mg/dL *HI* *HI* *HI* (03/27/16 7:25 AM) (03/26/16 5:25 AM) (03/25/16 1:08 PM) Total Protein [6.4-8.4 g/dL] 7.2 g/dL (03/27/16 7:25 AM) Albumin Lvl [3.5-5.0 g/dL] 3.1 g/dL *LOW* (03/27/16 7:25 AM) Globulin [2.0-4.0 g/dL] 4.1 g/dL *HI* (03/27/16 7:25 AM) A/G Ratio [0.7-1.6] 0.8 (03/27/16 7:25 AM) Calcium Lvl [8.5-10.5 mg/dL] 9.0 mg/dL 8.8 mg/dL 9.0 mg/dL (03/27/16 7:25 AM) (03/26/16 5:25 AM) (03/25/16 1:08 PM) ALT [0-65 unit/L] 28 unit/L (03/27/16 7:25 AM) AST [0-37 unit/L] 16 unit/L (03/27/16 7:25 AM) Alk Phos [39-136 unit/L] 118 unit/L (03/27/16 7:25 AM) LDH [98-192 unit/L] 285 unit/L *HI* (03/27/16 7:10 PM) Bili Total [0.2-1.3 mg/dL] 0.2 mg/dL 0.1 mg/dL (03/27/16 7:10 PM) *LOW* (03/27/16 7:25 AM) Bili Direct [0.0-0.3 mg/dL] <0.1 mg/dL (03/27/16 7:10 PM) Bili Indirect [0.0-1.0] Unable to Calculate *NA* (03/27/16 7:10 PM) Procalcitonin Lvl [0.00-0.10 <0.05 ng/mL ng/mL] (03/26/16 2:40 PM) 1Result Comment: The eGFR is calculated [...] 1 2 3 Total CK [12-191 unit/L] 106 unit/L (03/25/16 10:46 PM) CK MB [0.5-3.6 ng/mL] 1.0 ng/mL (03/25/16 10:46 PM) CK MB Index [0.0-2.5] 0.9 (03/25/16 10:46 PM) Troponin-I [0.00-0.40 ng/mL] 0.02 ng/mL (03/25/16 10:46 PM) BNP [<=100 pg/mL] 5 pg/mL (03/26/16 5:25 AM) ANEMIA STUDY Most recent to oldest [Reference Range]: 1 2 3 Iron [30-160 ug/dl] 28 ug/dl *LOW* (03/27/16 7:10 PM) Ferritin Lvl [5-204 ng/mL] 17 ng/mL (03/27/16 7:10 PM) % Satur Fe [12-57 %] 8 % *LOW* (03/27/16 7:10 PM) UIBC [110-370 ug/dl] 313 ug/dl (03/27/16 7:10 PM) Vitamin B12 Lvl [254-1320 pg/mL] 497 pg/mL (03/27/16 7:10 PM) Folate Lvl [>=3.0 ng/mL] 15.4 ng/mL (03/27/16 7:10 PM) TIBC [228-428 ug/dl] 341 ug/dl (03/27/16 7:10 PM) URINE AND STOOL Most recent to oldest [Reference Range]: 1 2 3 UA Turbidity [Clear] Clear (03/26/16 1:07 PM) UA Color [Yellow] Light Yellow *NA* (03/26/16 1:07 PM) UA pH [5.0-8.0] 6.0 (03/26/16 1:07 PM) UA Spec Grav [<=1.030] 1.012 (03/26/16 1:07 PM) UA Glucose [Negative mg/dL] Negative mg/dL *NA* (03/26/16 1:07 PM) UA Blood [Negative] Negative (03/26/16 1:07 PM) UA Ketones [Negative mg/dL] Negative mg/dL *NA* (03/26/16 1:07 PM) UA Protein [Negative mg/dL] Negative mg/dL (03/26/16 1:07 PM) UA Urobilinogen [0.1-1.0 mg/dL] <=1.0 mg/dL *NA* (03/26/16 1:07 PM) UA Bili [Negative] Negative *NA* (03/26/16 1:07 PM) UA Leuk Est [Negative] Negative (03/26/16 1:07 PM) UA Nitrite [Negative] Negative (03/26/16 1:07 PM) UA WBC [0-5 /HPF] <1 /HPF (03/26/16 1:07 PM) UA RBC [0-2 /HPF] <1 /HPF (03/26/16 1:07 PM) UA Bacteria [None Seen /HPF] Occasional /HPF *NA* (03/26/16 1:07 PM) UA Sq Epi [Few /LPF] Occasional /LPF *NA* (03/26/16 1:07 PM) UA Mucus [None Seen /LPF] Few /LPF *NA* (03/26/16 1:07 PM) IMMUNOLOGY Most recent to oldest [Reference 1 2 3 Range]: Source JAK2 Mutation LAV TOP WB *NA* (03/27/16 7:10 PM) JAK2 ([id number]) [NOT DETECTED] NOT DETECTED 1 *NA* (03/27/16 7:10 PM) JAK2 exon 12 Mutations [NOT DETECTED] NOT DETECTED 2 *NA* (03/27/16 7:10 PM) JAK2 exon 13 Mutations [NOT DETECTED] NOT DETECTED 3 *NA* (03/27/16 7:10 PM) Hgb S % [0.0-0.0 %] 0.0 % (03/27/16 7:10 PM) Hgb A % [95.8-97.8 %] 98.0 % *HI* (03/27/16 7:10 PM) Hgb A2 % [2.2-3.2 %] 2.0 % *LOW* (03/27/16 7:10 PM) Hgb F % [0.0-1.0 %] 0.0 % (03/27/16 7:10 PM) Hgb C % [0.0-0.0 %] 0.0 % (03/27/16 7:10 PM) Hgb Interp No abnormal hemoglobins are detected; normal hemoglobin electrophoresis pattern. The electronic medical record has been reviewed for relevant history. This patient has microcytic hypochromic anemia with iron deficiency. Please note, iron deficiency may falsely lower hemoglobin A2 levels, thus masking beta- thalassemia trait. I have personally reviewed the test results and concur with the resident's interpretation. CPT 82723-LQ *NA* (03/27/16 7:10 PM) 1Result Comment: Based on sequence analysis, no mutated JAK2 V617F allele was detected. Reflex testing for JAK2 EXON 12 and EXON 13 will be performed. [...] without the V617F mutation. Test Performed at: [facility] [address] [id number] Rosalie Vallecillo MD, [id number] Comment: JAK2 EXON 12 was sequenced and tested for mutations. There is no evidence of mutation in JAK2 EXON 123Result Comment: JAK2 EXON 13 was sequenced and tested for mutations. There is no evidence of mutation in JAK2 EXON 13 Results reviewed by Henrik [...] inadequate cells will be tested. 1. Jana Romeo et al. Hemizygous/homozygous and heterozygous JAK2 mutation detected in plasma of patients with myeloproliferative diseases: correlation with clinical behavior. 2006. Br J Haematol. 134(3):341-3. 2. Jana et al. Higher detection rate of JAK2 mutation using plasma. Blood. 2008 Jan 1;111(7):3906-7. This test is performed pursuant to a license agreement with [employer] This test was developed and its analytical performance characteristics have been determined by [facility]. It has not been cleared or approved by FDA. This assay has been validated pursuant to the CLIA regulations and is used for clinical purposes. Test Performed at: [facility] [address] [id number] Rosalie Vallecillo MD, PhDHEMATOLOGY Most recent to oldest 1 2 3 [Reference Range]: WBC [3.7-10.4 K/CMM] 22.1 K/CMM 23.2 K/CMM 25.8 K/CMM *HI* *HI* *HI* (03/28/16 7:00 AM) (03/27/16 6:45 AM) (03/26/16 2:40 PM) RBC [4.20-5.40 M/CMM] 4.61 M/CMM 4.54 M/CMM 4.45 M/CMM (03/28/16 7:00 AM) (03/27/16 6:45 AM) (03/26/16 2:40 PM) Hgb [12.0-16.0 g/dL] 10.8 g/dL 10.7 g/dL 10.7 g/dL *LOW* *LOW* *LOW* (03/28/16 7:00 AM) (03/27/16 6:45 AM) (03/26/16 2:40 PM) Hct [36.0-48.0 %] 35.4 % 34.5 % 33.3 % *LOW* *LOW* *LOW* (03/28/16 7:00 AM) (03/27/16 6:45 AM) (03/26/16 2:40 PM) MCV [80.0-98.0 fL] 76.8 fL 75.9 fL 74.8 fL *LOW* *LOW* *LOW* (03/28/16 7:00 AM) (03/27/16 6:45 AM) (03/26/16 2:40 PM) MCH [27.0-31.0 pg] 23.4 pg 23.6 pg 24.1 pg *LOW* *LOW* *LOW* (03/28/16 7:00 AM) (03/27/16 6:45 AM) (03/26/16 2:40 PM) MCHC [32.0-36.0 g/dL] 30.5 g/dL 31.1 g/dL 32.3 g/dL *LOW* *LOW* (03/26/16 2:40 PM) (03/28/16 7:00 AM) (03/27/16 6:45 AM) RDW [11.5-14.5 %] 15.6 % 16.0 % 15.8 % *HI* *HI* *HI* (03/28/16 7:00 AM) (03/27/16 6:45 AM) (03/26/16 2:40 PM) Platelet [133-450 K/CMM] 308 K/CMM 353 K/CMM 393 K/CMM (03/28/16 7:00 AM) (03/27/16 6:45 AM) (03/26/16 2:40 PM) MPV [7.4-10.4 fL] 8.3 fL 8.2 fL 8.1 fL (03/28/16 7:00 AM) (03/27/16 6:45 AM) (03/26/16 2:40 PM) Segs [45.0-75.0 %] 61.8 % 64.0 % 69.0 % (03/28/16 7:00 AM) (03/27/16 6:45 AM) (03/26/16 2:40 PM) Lymphocytes [20.0-40.0 27.9 % 25.2 % 25.0 % %] (03/28/16 7:00 AM) (03/27/16 6:45 AM) (03/26/16 2:40 PM) Atypical Lymphs [<=0.0 1.0 % %] *HI* (03/26/16 2:40 PM) Monocytes [2.0-12.0 %] 8.1 % 8.3 % 5.0 % (03/28/16 7:00 AM) (03/27/16 6:45 AM) (03/26/16 2:40 PM) Eosinophils [0.0-4.0 %] 1.3 % 2.0 % 0.0 % (03/28/16 7:00 AM) (03/27/16 6:45 AM) (03/26/16 2:40 PM) Basophils [0.0-1.0 %] 0.9 % 0.5 % 0.0 % (03/28/16 7:00 AM) (03/27/16 6:45 AM) (03/26/16 2:40 PM) Segs-Bands # [1.5-8.1 13.6 K/CMM 14.9 K/CMM 17.8 K/CMM K/CMM] *HI* *HI* *HI* (03/28/16 7:00 AM) (03/27/16 6:45 AM) (03/26/16 2:40 PM) Lymphocytes # [1.0-5.5 6.2 K/CMM 5.9 K/CMM 6.7 K/CMM K/CMM] *HI* *HI* *HI* (03/28/16 7:00 AM) (03/27/16 6:45 AM) (03/26/16 2:40 PM) Monocytes # [0.0-0.8 1.8 K/CMM 1.9 K/CMM 1.3 K/CMM K/CMM] *HI* *HI* *HI* (03/28/16 7:00 AM) (03/27/16 6:45 AM) (03/26/16 2:40 PM) Eosinophils # [0.0-0.5 0.3 K/CMM 0.5 K/CMM 0.0 K/CMM K/CMM] (03/28/16 7:00 AM) (03/27/16 6:45 AM) (03/26/16 2:40 PM) Basophils # [0.0-0.2 0.2 K/CMM 0.1 K/CMM 0.0 K/CMM K/CMM] (03/28/16 7:00 AM) (03/27/16 6:45 AM) (03/26/16 2:40 PM) Microcyte [None Seen] 1+ 1+ 2+ *ABN* *ABN* *ABN* (03/28/16 7:00 AM) (03/27/16 6:45 AM) (03/26/16 2:40 PM) PB Smear Path Moderate granulocytic and monocytic leukocytosis. Mild anemia with hypochromic, microcytic indices. Plasmacytoid lymphoid cells present. Clinical and laboratory correlation required. *NA* (03/27/16 7:10 PM) Plt Morph Normal Normal (03/26/16 2:40 PM) (03/25/16 1:08 PM) Retic Auto [0.5-1.5 %] 1.0 % (03/27/16 7:10 PM) PT [12.0-14.7 seconds] 18.5 seconds 19.2 seconds 16.7 seconds *HI* *HI* *HI* (03/28/16 7:00 AM) (03/27/16 7:25 AM) (03/26/16 5:25 AM) INR [0.85-1.17] 1.51 1.58 1.32 *HI* *HI* *HI* (03/28/16 7:00 AM) (03/27/16 7:25 AM) (03/26/16 5:25 AM) Immunizations No data available for this section [...] year. Previous treatment: None. Smoking Status Current some day smoker; Type: Cigarettes; Ready to change: No; Concerns about tobacco use in household: No; Exposure to Tobacco Smoke None; Cigarette Smoking Last 365 Days Yes; Reg Smoking Cessation Counseling No Assessment and Plan No data available for this section
--- OUTSIDE RECORDS SUMMARY | 2018-10-23 12:18 | XMS REPORT | Summary of Care ---
:1960 Author Organization [facility] Address [facility] [place], [place] [address]- Encounter HQ Giselentr_devon(FIN) [id number] Date(s): 09/02/16 - 09/04/[address] [address]- Discharge Disposition: Home or Self Care Attending Physician: Shaan Salcido MD Admitting Physician: Shaan Salcido MD Vital Signs Most recent to oldest 1 2 3 [Reference Range]: Height 157.48 cm (09/02/16 10:30 AM) Temperature Oral [96.4-99.1 97.8 DegF 98.3 DegF 97.4 DegF DegF] (09/04/16 4:04 PM) (09/04/16 8:30 AM) (09/04/16 4:00 AM) Blood Pressure 118/74 mmHg 109/69 mmHg 105/66 mmHg [90-140/60-90 mmHg] (09/04/16 4:04 PM) (09/04/16 8:30 AM) (09/04/16 4:00 AM) Respiratory Rate [14-20 18 BRMIN 20 BRMIN 18 BRMIN BRMIN] (09/04/16 4:04 PM) (09/04/16 8:30 AM) (09/04/16 4:00 AM) Peripheral Pulse Rate 71 bpm 85 bpm 87 bpm [60-100 bpm] (09/04/16 4:04 PM) (09/04/16 8:30 AM) (09/04/16 4:00 AM) Weight 87.727 kg (09/02/16 10:30 AM) Body Mass Index 35.37 m2 (09/02/16 10:30 AM) Problem List Condition Effective Dates Status Health Status Informant Anxiety(Confirmed) 09/07/12 Active Anxiety(Confirmed) Active Asthma(Confirmed) Active ASTHMA(Confirmed) Resolved Bronchitis(Confirmed) Resolved [...] Status Benadryl hives Active ibuprofen Active Kenalog paralysis Active Kenalog levabid hives Active levofloxacin bumps Active naloxone Active norepinephrine1 hives Active penbutolol Active penicillins nausea Active pentazocine2 hives Active Talwin hives Active unfunctional Tape blister Active triamcinolone topical3 hives Active 1Data migrated from [employer] on 02/15/15. Originally documented as [email or web address].2Data migrated from [employer] on 02/15/15. Originally documented as [email or web address].3Data migrated from [employer] on 02/15/15. Originally documented as KENALOG. Medications albuterol 0.083% inhalation solution 2.49 mg=3 mL, INHALATION, Q6H, PRN wheezing, coughing, or shortness of breath, # 240 ea, 1 Refill(s) Start Date: 09/02/16 Stop Date: 11/01/16 Status: Orderedalbuterol 0.083% inhalation solution 2.49 mg, 3 mL, Route: INHALATION, Drug form: SOLN, Q6H, Dosing Weight 87.727, kg , PRN as needed for wheezing, Start date: 09/02/16 16:36:00 YOUTH DEVELOPMENT SPECIALIST, Duration: 30 day, Stop date: 10/02/16 16:35:00 YOUTH DEVELOPMENT SPECIALIST Notes: SEE RT DOCUMENTATION (Same as: Zander) Start Date: 09/02/16 Stop Date: 09/04/16 Status: DiscontinuedALPRAZOLam 0.25 mg oral tablet 0.25 mg, 0.5 tab, Route: PO, Drug form: TAB, Bedtime, Dosing Weight 87.727, kg, Start date: 09/02/1621:00:00 YOUTH DEVELOPMENT SPECIALIST, Duration: 30 day, Stop date: 10/01/16 21:00: 00 YOUTH DEVELOPMENT SPECIALIST Notes: With food or milk(Same as: Xanax) Start Date: 09/02/16 Stop Date: 09/04/16 Status: DiscontinuedAmitiza 24 microgram, 1 cap, Route: PO, Drug form: CAP, BID, Dosing Weight 87.727, kg, Start date: 09/02/16 17:00:00 YOUTH DEVELOPMENT SPECIALIST, Duration: 30 day, Stop date: 10/02/16 9:00: 00 YOUTH DEVELOPMENT SPECIALIST Notes: Same as Amitiza (Do Not Crush) Non Formulary Start Date: 09/02/16 Stop Date: 09/04/16 Status: Discontinuedamitriptyline 10 mg, Route: PO, Drug form: TAB, Bedtime, Dosing Weight 87.727, kg, Start date : 09/04/16 21:00:00 YOUTH DEVELOPMENT SPECIALIST, Duration: 30 day, Stop date: 10/03/16 21:00:00 YOUTH DEVELOPMENT SPECIALIST Start Date: 09/04/16 Stop Date: 09/04/16 Status: Canceledamitriptyline 100 mg, 1 tab, Route: PO, Drug form: TAB, Bedtime, Dosing Weight 87.727, kg, Start date: 09/02/16 21:00:00 YOUTH DEVELOPMENT SPECIALIST, Duration: 30 day, Stop date: 10/01/16 21:00: 00 YOUTH DEVELOPMENT SPECIALIST Notes: (Same as: Elavil) Start Date: 09/02/16 Stop Date: 09/04/16 Status: Discontinuedamitriptyline 100 mg oral tablet 100 mg=1 tab, PO, Bedtime, # 30 tab, 0 Refill(s) Start Date: 09/04/16 Stop Date: 10/04/16 Status: Orderedcarvedilol 3.125 mg, 1 tab, Route: PO, Drug form: TAB, BID, Dosing Weight 87.727, kg, Start date: 09/02/16 17:00:00 YOUTH DEVELOPMENT SPECIALIST, Duration: 30 day, Stop date: 10/02/16 9:00: 00 YOUTH DEVELOPMENT SPECIALIST Notes: Give with food. (Same As: Coreg) Start Date: 09/02/16 Stop Date: 09/04/16 Status: DiscontinuedCombivent Inhaler (own med) Combivent Inhaler (own med), (own med), Drug form: MISC, Route: INHALATION, QID , 09/02/16 22:55:00 YOUTH DEVELOPMENT SPECIALIST, Duration: 30 day, Stop date: 10/02/16 21:00:00 YOUTH DEVELOPMENT SPECIALIST Start Date: 09/02/16 Stop Date: 09/04/16 Status: [id number] 1/2NS 1,000 mL + potassium chloride 10 mEq 1,000 mL, Rate: 100 ml/hr, Infuse over: 10 hr, Route: IV, Dosing Weight 87.727 kg, Total Volume: 1,000, Start date: 09/02/16 11:24:00 YOUTH DEVELOPMENT SPECIALIST, Duration: 30 day, Stop date: 10/02/16 11:23:00 YOUTH DEVELOPMENT SPECIALIST Start Date: 09/02/16 Stop Date: 09/04/16 Status: DiscontinuedDilaudid 0.5 mg, Route: IVP, Q4H, Dosing Weight 87.727, kg, PRN Pain Score 7-10, Start date: 09/02/16 10:58:00 YOUTH DEVELOPMENT SPECIALIST, Duration: 30 day, Stop date: 10/02/16 10:57:00 YOUTH DEVELOPMENT SPECIALIST Start Date: 09/02/16 Stop Date: 09/02/16 Status: DiscontinuedFlagyl 500 mg, 100 mL, Route: IVPB, Drug form: INJ, [id number], Dosing Weight 87.727, kg, Start date: 09/02/16 11:00:00 YOUTH DEVELOPMENT SPECIALIST, Duration: 30 day, Stop date: 10/02/16 3:00: 00 YOUTH DEVELOPMENT SPECIALIST Notes: (Same as: Flagyl) Avoid alcohol. Start Date: 09/02/16 Stop Date: 09/04/16 Status: DiscontinuedGoLYTELY 4,000 ml, Route: PO, Drug Form: PDR/REC, Dosing Weight 87.727, kg, ONCE, Start date: 09/03/16 12:44:00 YOUTH DEVELOPMENT SPECIALIST, Duration: 1 doses or times, Stop date: 09/03/16 12: 44:00 YOUTH DEVELOPMENT SPECIALIST Notes: (polyethylene glycol electrolyte solution 4 Liter bottle) (Same as: Col Suzetteyte) Start Date: 09/03/16 Stop Date: 09/03/16 Status: CompletedhydrOXYzine hydrochloride 25 mg oral tablet 25 mg, 1 tab, Route: PO, Drug form: TAB, TID, Dosing Weight 87.727, kg, PRN Itching, Start date: 09/02/16 16:37:00 YOUTH DEVELOPMENT SPECIALIST, Duration: 30 day, Stop date: 16:36:00 YOUTH DEVELOPMENT SPECIALIST Notes: (Same as: Atarax) Avoid alcohol. Start Date: 09/02/16 Stop Date: 09/03/16 Status: DiscontinuedhydrOXYzine hydrochloride 25 mg oral tablet 25 mg, 1 tab, Route: PO, Drug form: TAB, QID, Dosing Weight 87.727, kg, PRN Itching, Start date: 09/03/16 8:24:00 YOUTH DEVELOPMENT SPECIALIST, Duration: 30 day, Stop date: 8:23:00 YOUTH DEVELOPMENT SPECIALIST Notes: (Same as: Atarax) Avoid alcohol. Start Date: 09/03/16 Stop Date: 09/04/16 Status: Discontinuedlactulose 10 g/15 mL oral syrup 10 gm, 15 mL, Route: PO, Drug Form: SYRP, Dosing Weight 87.727, kg, BID, PRN Constipation, Start date: 09/02/16 16:37:00 YOUTH DEVELOPMENT SPECIALIST, Duration: 30 day, Stop date: 16:36:00 YOUTH DEVELOPMENT SPECIALIST Notes: (Same as:Chronulac) Start Date: 09/02/16 Stop Date: 09/04/16 Status: Discontinuedlosartan 100 mg, 2 tab, Route: PO, Drug form: TAB, Daily, Dosing Weight 87.727, kg, Start date: 09/03/16 9:00:00 YOUTH DEVELOPMENT SPECIALIST, Duration: 30 day, Stop date: 10/02/16 9:00:00 YOUTH DEVELOPMENT SPECIALIST Notes: (Same as: Pete) Start Date: 09/03/16 Stop Date: 09/04/16 Status: DiscontinuedLVP solution with potassium 500 mL 500 mL, Rate: 100 ml/hr, Infuse over: 5 hr, Route: IV, Dosing Weight 87.727 kg, Total Volume: 500, Start date: 09/02/16 10:54:00 YOUTH DEVELOPMENT SPECIALIST, Duration: 30 day, Stop date: 10/02/16 10:53:00 YOUTH DEVELOPMENT SPECIALIST Start Date: 09/02/16 Stop Date: 09/02/16 Status: Deletedmeclizine 12.5 mg, 1 tab, Route: PO, Drug form: TAB, TID, Dosing Weight 87.727, kg, PRN Dizziness, Start date:09/02/16 16:38:00 YOUTH DEVELOPMENT SPECIALIST, Duration: 30 day, Stop date: 16:37:00 YOUTH DEVELOPMENT SPECIALIST Notes: (Same as: Antivert) Start Date: 09/02/16 Stop Date: 09/04/16 Status: Discontinuedmethocarbamol 750 mg, 1 tab, Route: PO, Drug form: TAB, Q8H, Dosing Weight 87.727, kg, PRN Pain Score 4-6, Start date: 09/02/16 16:38:00 YOUTH DEVELOPMENT SPECIALIST, Duration: 30 day, Stop date: 10/02/16 16:37:00 YOUTH DEVELOPMENT SPECIALIST Notes: (Same as:Robaxin) Start Date: 09/02/16 Stop Date: 09/04/16 Status: Discontinuedmetoclopramide 10 mg oral tablet 10 mg, 1 tab, Route: PO, Drug form: TAB, [id number], Dosing Weight 87.727, kg, Start date: 09/02/16 17:00:00 YOUTH DEVELOPMENT SPECIALIST, Duration: 30 day, Stop date: 10/02/16 5:00: 00 YOUTH DEVELOPMENT SPECIALIST Notes: (Same as: Reglan) Take 30 min before meals Start Date: 09/02/16 Stop Date: 09/04/16 Status: Discontinuedmetolazone 10 mg oral tablet 10 mg, 4 tab, Route: PO, Drug form: TAB, Daily, Dosing Weight 87.727, kg, Start date: 09/03/16 9:00:00 YOUTH DEVELOPMENT SPECIALIST, Duration: 30 day, Stop date: 10/02/16 9:00:00 YOUTH DEVELOPMENT SPECIALIST Notes: (Same as: Zaroxolyn) Start Date: 09/03/16 Stop Date: 09/04/16 Status: Discontinuedmontelukast 10 mg, 1 tab, Route: PO, Drug form: TAB, Daily, Dosing Weight 87.727, kg, Start date: 09/03/16 9:00:00 YOUTH DEVELOPMENT SPECIALIST, Duration: 30 day, Stop date: 10/02/16 9:00:00 YOUTH DEVELOPMENT SPECIALIST Notes: (Same as:Singulair) Start Date: 09/03/16 Stop Date: 09/04/16 Status: Discontinuedmorphine Sulfate 2 mg, 1 mL, Route: IVP, Drug form: INJ, Q4H, Dosing Weight 87.727, kg, PRN Other -See Comment, Startdate: 09/02/16 11:01:00 YOUTH DEVELOPMENT SPECIALIST, Stop date: 10/02/16 11:00: 00 YOUTH DEVELOPMENT SPECIALIST Notes: (Same as:MORPhine Sulfate) Start Date: 09/02/16 Stop Date: 09/04/16 Status: DiscontinuedOmeprazole-sodium Bicarb 40-1100 (own med) Omeprazole-sodium Bicarb 40-1100 (own med), 1 cap, Drug form: MISC, Route: PO, Daily, 09/03/16 9:00:00 YOUTH DEVELOPMENT SPECIALIST, Duration: 30 day, Stop date: 10/02/16 9:00:00 YOUTH DEVELOPMENT SPECIALIST Start Date: 09/03/16 Stop Date: 09/04/16 Status: Discontinuedomeprazole-sodium bicarbonate 20 mg-1680 mg oral powder 1 pkt, Route: PO, Drug Form: PDR/REC, Dosing Weight 87.727, kg, Daily, Start date: 09/03/16 9:00:00 YOUTH DEVELOPMENT SPECIALIST, Duration: 30 day, Stop date: 10/02/16 9:00:00 YOUTH DEVELOPMENT SPECIALIST Start Date: 09/03/16 Stop Date: 09/02/16 Status: Deletedomeprazole-sodium bicarbonate 40 mg-1100 mg oral capsule 1 cap, PO, Daily, 0 Refill(s) Start Date: 09/02/16 Status: Orderedondansetron 4 mg, 2 mL, Route: IVP, Drug form: INJ, Q4H, Dosing Weight 87.727, kg, PRN Nausea & Vomiting, Start date: 09/02/16 10:50:00 YOUTH DEVELOPMENT SPECIALIST, Stop date: 10/02/16 10 :49:00 YOUTH DEVELOPMENT SPECIALIST Notes: (Same as: Janey) MEDICATION WASTE Product Size: 4 mgProduct Wasted: ___ mg Start Date: 09/02/16 Stop Date: 09/04/16 Status: Discontinuedpancrelipase 24,000 units-76,000 units-120,000 units oral delayed release capsule (Creon 24,000) 3 cap, Route: PO, Drug Form: DRC, Dosing Weight 87.727, kg, QID, Start date: 17:00:00 YOUTH DEVELOPMENT SPECIALIST, Duration: 30 day, Stop date: 10/02/16 13:00:00 YOUTH DEVELOPMENT SPECIALIST Notes: Same as: Creon DRC 24 : lipase 24,000 units, protease 76,000 units, amylase 120,000 units Start Date: 09/02/16 Stop Date: 09/04/16 Status: Discontinuedpotassium chloride 20 mEq, 1 tab, Route: PO, Drug form: ERTAB, [id number], Dosing Weight 87.727, kg, Start date: 09/02/16 17:00:00 YOUTH DEVELOPMENT SPECIALIST, Duration: 30 day, Stop date: 10/02/16 5:00: 00 YOUTH DEVELOPMENT SPECIALIST Notes: (Same as: K-Dur 20)"Do Not Crush" With food and full glass of water Start Date: 09/02/16 Stop Date: 09/04/16 Status: DiscontinuedProtonix 40 mg, Route: IVP, Drug form: INJ, Daily, Dosing Weight 87.727, kg, Patient is NPO, Start date: 09/03/16 9:00:00 YOUTH DEVELOPMENT SPECIALIST, Duration: 30 day, Stop date: 10/02/16 9: 00:00 YOUTH DEVELOPMENT SPECIALIST Notes: For IV push reconstitute with 10 ml 0.9% sodium chloride and push over 2 minutes. (Same as: Protonix) Start Date: 09/03/16 Stop Date: 09/02/16 Status: Canceledsucralfate 1 gm, 10 mL, Route: PO, Drug form: SUSP, Before Meals & Bedtime, Dosing Weight 87.727, kg, Startdate: 09/02/16 21:00:00 YOUTH DEVELOPMENT SPECIALIST, Duration: 30 day, Stop date : 10/02/16 16:30:00 YOUTH DEVELOPMENT SPECIALIST Notes: Enteral feeds may interfere with the absorption of this medication. Shake well. Take 1 hr before or 2 hrs after antacids, dairy pdt, minerals & meals. (Same As: Carafate) Start Date: 09/02/16 Stop Date: 09/04/16 Status: DiscontinuedZofran 4 mg, 2 mL, Route: IVP, Drug form: INJ, ONCE, Start date: 09/04/16 0:45:00 YOUTH DEVELOPMENT SPECIALIST, Stop date: 09/04/16 0:45:00 YOUTH DEVELOPMENT SPECIALIST Notes: (Same as: Zofran) MEDICATION WASTE Product Size: 4 mgProduct Wasted: ___ mg Start Date: 09/04/16 Stop Date: 09/04/16 Status: Completed Results ELECTROLYTES Most recent to oldest [Reference Range]: 1 2 Sodium Lvl [135-145 mEq/L] 141 mEq/L (09/02/16 12:10 PM) Potassium Lvl [3.5-5.1 mEq/L] 3.5 mEq/L (09/02/16 12:10 PM) Chloride Lvl [95-109 mEq/L] 102 mEq/L (09/02/16 12:10 PM) CO2 [24-32 mEq/L] 27 mEq/L (09/02/16 12:10 PM) AGAP [10.0-20.0 mEq/L] 15.5 mEq/L (09/02/16 12:10 PM) CHEM PANEL Most recent to oldest [Reference Range]: 1 2 Creatinine Lvl [0.50-1.40 mg/dL] 1.00 mg/dL (09/02/16 12:10 PM) eGFR 73 mL/min/1.73m2 1 *NA* (09/02/16 12:10 PM) BUN [7-22 mg/dL] 9 mg/dL (09/02/16 12:10 PM) B/C Ratio [6-25] 9 (09/02/16 12:10 PM) Glucose Lvl [70-99 mg/dL] 89 mg/dL (09/02/16 12:10 PM) Total Protein [6.4-8.4 g/dL] 7.2 g/dL (09/02/16 12:10 PM) Albumin Lvl [3.5-5.0 g/dL] 3.1 g/dL *LOW* (09/02/16 12:10 PM) Globulin [2.7-4.2 g/dL] 4.1 g/dL (09/02/16 12:10 PM) A/G Ratio [0.7-1.6] 0.8 (09/02/16 12:10 PM) Calcium Lvl [8.5-10.5 mg/dL] 9.2 mg/dL (09/02/16 12:10 PM) ALT [0-65 unit/L] 22 unit/L (09/02/16 12:10 PM) AST [0-37 unit/L] 13 unit/L (09/02/16 12:10 PM) Alk Phos [39-136 unit/L] 117 unit/L (09/02/16 12:10 PM) Bili Total [0.2-1.3 mg/dL] 0.1 mg/dL *LOW* (09/02/16 12:10 PM) Amylase Lvl [25-115 unit/L] 54 unit/L (09/02/16 12:10 PM) Lipase Lvl [73-393 unit/L] 182 unit/L (09/02/16 12:10 PM) Lactic Acid Lvl [0.5-2.2 mMol/L] 1.3 mMol/L (09/02/16 12:10 PM) Procalcitonin Lvl [0.00-0.10 ng/mL] <0.05 ng/mL (09/02/16 12:10 PM) 1Result Comment: The eGFR is calculated [...] eGFR should be multiplied by the estimated BMI.DRUG SCREEN Most recent to oldest [Reference Range]: 1 2 U Amph Scr [Negative] Negative *NA* (09/02/16 3:33 PM) U Ailyn Scr [Negative] Negative *NA* (09/02/16 3:33 PM) U Benzodia Scr [Negative] Negative *NA* (09/02/16 3:33 PM) U Cocaine Scr [Negative] Negative *NA* (09/02/16 3:33 PM) U Opiate Scr [Negative] Positive *ABN* (09/02/16 3:33 PM) U Phencyc Scr [Negative] Negative *NA* (09/02/16 3:33 PM) U Cannab Scr [Negative] Negative *NA* (09/02/16 3:33 PM) UDS Note See Note (09/02/16 3:33 PM) URINE AND STOOL Most recent to oldest [Reference Range]: 1 2 UA Turbidity [Clear] Clear (09/02/16 3:33 PM) UA Color [Yellow] Light Yellow *NA* (09/02/16 3:33 PM) UA pH [5.0-8.0] 6.0 (09/02/16 3:33 PM) UA Spec Grav [<=1.030] 1.018 (09/02/16 3:33 PM) UA Glucose [Negative mg/dL] Negative mg/dL *NA* (09/02/16 3:33 PM) UA Blood [Negative] Negative (09/02/16 3:33 PM) UA Ketones [Negative mg/dL] Negative mg/dL *NA* (09/02/16 3:33 PM) UA Protein [Negative mg/dL] Negative mg/dL (09/02/16 3:33 PM) UA Urobilinogen [0.1-1.0 mg/dL] <=1.0 mg/dL *NA* (09/02/16 3:33 PM) UA Bili [Negative] Negative *NA* (09/02/16 3:33 PM) UA Leuk Est [Negative] Negative (09/02/16 3:33 PM) UA Nitrite [Negative] Negative (09/02/16 3:33 PM) UA Sq Epi [Few /LPF] Occasional /LPF *NA* (09/02/16 3:33 PM) HEMATOLOGY Most recent to oldest [Reference Range]: 1 2 WBC [3.7-10.4 K/CMM] 17.6 K/CMM 19.5 K/CMM *HI* *HI* (09/03/16 3:03 AM) (09/02/16 12:10 PM) RBC [4.20-5.40 M/CMM] 3.97 M/CMM 4.14 M/CMM *LOW* *LOW* (09/03/16 3:03 AM) (09/02/16 12:10 PM) Hgb [12.0-16.0 g/dL] 9.2 g/dL 9.6 g/dL *LOW* *LOW* (09/03/16 3:03 AM) (09/02/16 12:10 PM) Hct [36.0-48.0 %] 29.5 % 30.5 % *LOW* *LOW* (09/03/16 3:03 AM) (09/02/16 12:10 PM) MCV [80.0-98.0 fL] 74.2 fL 73.8 fL *LOW* *LOW* (09/03/16 3:03 AM) (09/02/16 12:10 PM) MCH [27.0-31.0 pg] 23.3 pg 23.2 pg *LOW* *LOW* (09/03/16 3:03 AM) (09/02/16 12:10 PM) MCHC [32.0-36.0 g/dL] 31.4 g/dL 31.5 g/dL *LOW* *LOW* (09/03/16 3:03 AM) (09/02/16 12:10 PM) RDW [11.5-14.5 %] 17.3 % 17.0 % *HI* *HI* (09/03/16 3:03 AM) (09/02/16 12:10 PM) Platelet [133-450 K/CMM] 337 K/CMM 339 K/CMM (09/03/16 3:03 AM) (09/02/16 12:10 PM) MPV [7.4-10.4 fL] 8.3 fL 8.1 fL (09/03/16 3:03 AM) (09/02/16 12:10 PM) Segs [45.0-75.0 %] 55.6 % 61.3 % (09/03/16 3:03 AM) (09/02/16 12:10 PM) Lymphocytes [20.0-40.0 %] 34.4 % 29.5 % (09/03/16 3:03 AM) (09/02/16 12:10 PM) Monocytes [2.0-12.0 %] 9.0 % 8.7 % (09/03/16 3:03 AM) (09/02/16 12:10 PM) Eosinophils [0.0-4.0 %] 0.2 % 0.2 % (09/03/16 3:03 AM) (09/02/16 12:10 PM) Basophils [0.0-1.0 %] 0.8 % 0.3 % (09/03/16 3:03 AM) (09/02/16 12:10 PM) Segs-Bands # [1.5-8.1 K/CMM] 9.8 K/CMM 12.0 K/CMM *HI* *HI* (09/03/16 3:03 AM) (09/02/16 12:10 PM) Lymphocytes # [1.0-5.5 K/CMM] 6.0 K/CMM 5.7 K/CMM *HI* *HI* (09/03/16 3:03 AM) (09/02/16 12:10 PM) Monocytes # [0.0-0.8 K/CMM] 1.6 K/CMM 1.7 K/CMM *HI* *HI* (09/03/16 3:03 AM) (09/02/16 12:10 PM) Eosinophils # [0.0-0.5 K/CMM] 0.0 K/CMM (09/03/16 3:03 AM) Basophils # [0.0-0.2 K/CMM] 0.1 K/CMM 0.1 K/CMM (09/03/16 3:03 AM) (09/02/16 12:10 PM) Microcyte [None Seen] 2+ 2+ *ABN* *ABN* (09/03/16 3:03 AM) (09/02/16 12:10 PM) PT [12.0-14.7 seconds] 13.3 seconds (09/02/16 12:10 PM) INR [0.85-1.17] 0.99 (09/02/16 12:10 PM) PTT [22.9-35.8 seconds] 25.1 seconds (09/02/16 12:10 PM) Immunizations No data available for this section Procedures Procedure Date Related Diagnosis Body Site Appendectomy Brain excision1 Cataract extraction Diskectomy Fusion of cervicothoracic joint by posterior [...] 365 Days No; Reg Smoking Cessation Counseling No1, 2 1laasst time pt smoke is last week Saturday, pt said she smoke occassionally not everyday.2Pt reports she quit smoking 04/2015 Assessment and Plan Extracted from: Title: discharge summary Author: Diamante Pruitt DO Date: 09/04/16 Impression and Plan Extracted from: Title: GI Consult Author: Chago Edwards MD Date: 09/03/16 Impression and Plan 55 year old female with abdomial pain s/p EGD which showed reactive gastropathy and also c/o intracable abdominal pain. - Will proceed with colonscopy to rule out any lesion which possibly could be the source of the pain. - It was explained to the pt that GI tract has two nervous system and in some cases, the pain threshold is much lower compare to the rest of the population and given the fact that she had couple of norm al CT scans and mild gastropathy which none of them explains this amount of pain, we have to think about some IBS component if colonoscopy does not any source for the pain - She might be suffering from some form of neuropathic pain and we can give a trial of Elavil if colonoscopy does not show any findings - It was discussed with the pt inn detail and she verbalized understanding. - NPO at [facility] 6 litres today - Colonoscopy tomorrow - Rest of the plan pending colonoscopy result
--- OUTSIDE RECORDS SUMMARY | 2018-10-23 12:18 | XMS REPORT | Summary of Care ---
:1960 Author Organization [facility] Address [facility] [place], [place] [address]- Encounter HQ Isaac(FIN) [id number] Date(s): 08/28/16 - 08/31/[address] [address]- Discharge Disposition: Home or Self Care Attending Physician: Kasia Daly MD Admitting Physician: Kasia Daly MD Referring Physician: Dale Sewell MD Vital Signs Most recent to oldest 1 2 3 [Reference Range]: Height 157.48 cm (08/28/16 9:54 PM) Temperature Oral [96.4-99.1 97.7 DegF 98.4 DegF 97.9 DegF DegF] (08/31/16 8:00 AM) (08/31/16 4:25 AM) (08/30/16 11:15 PM) Blood Pressure 95/64 mmHg 110/71 mmHg 121/79 mmHg [90-140/60-90 mmHg] (08/31/16 8:00 AM) (08/31/16 4:25 AM) (08/30/16 11:15 PM ) Respiratory Rate [14-20 18 BRMIN 18 BRMIN 18 BRMIN BRMIN] (08/31/16 8:00 AM) (08/31/16 4:25 AM) (08/30/16 11:15 PM) Peripheral Pulse Rate 89 bpm 89 bpm 88 bpm [60-100 bpm] (08/31/16 8:00 AM) (08/31/16 4:25 AM) (08/30/16 11:15 PM) Weight 86.364 kg (08/28/16 9:54 PM) Body Mass Index 34.82 m2 (08/28/16 9:54 PM) Problem List Condition Effective Dates Status [...] Originally documented as KENALOG. Medications ALPRAZOLam 0.25 mg oral tablet 0.25 mg=1 tab, PO, Bedtime, 0 Refill(s) Start Date: 08/29/16 Status: SuspendedALPRAZOLam 0.25 mg oral tablet 0.25 mg, 1 tab, Route: PO, Drug form: TAB, Bedtime, Dosing Weight 86.364, kg, Start date: 08/29/16 21:00:00 KNOT BORER, Duration: 30 day, Stop date: 09/27/16 21:00: 00 KNOT BORER Start Date: 08/29/16 Stop Date: 08/29/16 Status: CanceledALPRAZOLam 0.25 mg oral tablet 0.25 mg, 1 tab, Route: PO, Drug form: TAB, Bedtime, Dosing Weight 86.364, kg, Start date: 08/29/16 2:20:00 KNOT BORER, Duration: 30 day, Stop date: 09/27/16 21:00: 00 KNOT BORER Notes: With food or milk(Same as: Xanax) Start Date: 08/29/16 Stop Date: 08/31/16 Status: DiscontinuedAmitiza 24 microgram, 1 cap, Route: PO, Drug form: CAP, BID, Dosing Weight 86.364, kg, Start date: 08/29/16 9:00:00 KNOT BORER, Duration: 30 day, Stop date: 09/27/16 17:00: 00 KNOT BORER Notes: Same as Amitiza (Do Not Crush) Non Formulary Start Date: 08/29/16 Stop Date: 08/31/16 Status: DiscontinuedAmitiza 24 mcg oral capsule 24 microgram=1 cap, PO, BID, 0 Refill(s) Start Date: 08/29/16 Status: Suspendedamitriptyline 100 mg, 2 tab, Route: PO, Drug form: TAB, Bedtime, Dosing Weight 86.364, kg, Start date: 08/29/16 21:00:00 KNOT BORER, Duration: 30 day, Stop date: 09/27/16 21:00: 00 KNOT BORER Notes: (Same as: Elavil) Start Date: 08/29/16 Stop Date: 08/31/16 Status: DiscontinuedAtivan 2 mg, 1 mL, Route: IVP, Drug form: INJ, ONCE, Dosing Weight 86.364, kg, PRN Anxiety, Start date: 08/29/16 12:02:00 KNOT BORER Notes: (Same as: Ativan) Start Date: 08/29/16 Stop Date: 08/29/16 Status: Completedaztreonam + sodium chloride 0.9% INJ 100 mL 1 gm, Route: IVPB, [id number], Dosing Weight 86.364, kg, Start date: 08/29/16 17:00: 00 KNOT BORER, Duration: 30day, Stop date: 09/28/16 9:00:00 KNOT BORER Notes: (Same As: Azactam) Start Date: 08/29/16 Stop Date: 08/30/16 Status: DiscontinuedBD Normal Saline Flush 10 mL, Route: IVP, Drug Form: INJ, PRN, PRN Line Flush, Start date: 08/28/16 22: 09:00 KNOT BORER, Duration:30 day, Stop date: 09/27/16 22:08:00 KNOT BORER Notes: (Same as: BD Posiflush) Start Date: 08/28/16 Stop Date: 08/31/16 Status: Discontinuedcarvedilol 3.125 mg, 1 tab, Route: PO, Drug form: TAB, BID, Dosing Weight 86.364, kg, Start date: 08/29/16 9:00:00 KNOT BORER, Duration: 30 day, Stop date: 09/27/16 17:00: 00 KNOT BORER Notes: Give with food. (Same As: Coreg) Start Date: 08/29/16 Stop Date: 08/31/16 Status: Discontinuedcarvedilol 3.125 mg oral tablet 3.125 mg=1 tab, PO, BID, 0 Refill(s) Start Date: 08/29/16 Stop Date: 08/29/16 Status: Discontinuedcholestyramine 4 gm, 1 pkt, Route: PO, Drug form: PDR/REC, BID, Dosing Weight 86.364, kg, Start date: 08/29/16 9:00:00 KNOT BORER, Duration: 30 day, Stop date: 09/27/16 17:00: 00 KNOT BORER Notes: (Same As: Rosendaran) Start Date: 08/29/16 Stop Date: 08/31/16 Status: DiscontinuedCombivent Respimat CFC free 100 mcg-20 mcg/inh inhalation aerosol 1 puff, INHALATION, QID, 0 Refill(s) Start Date: 08/29/16 Stop Date: 08/29/16 Status: DiscontinuedCreon 24,000 units oral delayed release capsule 1 cap, PO, QID, 0 Refill(s) Start Date: 08/29/16 Stop Date: 08/29/16 Status: DiscontinuedCreon 24,000 units oral delayed release capsule 1 cap, Route: PO, Drug Form: DRC, Dosing Weight 86.364, kg, QID-With Food, Start date: 08/29/16 8:00:00 KNOT BORER, Duration: 30 day, Stop date: 09/27/16 21:00: 00 KNOT BORER Notes: Same as: Bev PALAFOXC 24 : lipase 24,000 units, protease 76,000 units, amylase 120,000 units Start Date: 08/29/16 Stop Date: 08/29/16 Status: Discontinuedenoxaparin 40 mg, 0.4 mL, Route: SUB-Q, Drug form: INJ, [id number], Dosing Weight 86.364, kg , Start date: 08/29/16 12:00:00 KNOT BORER, Duration: 30 day, Stop date: 09/27/16 12:00 :00 KNOT BORER Notes: (Same as: Lovenox) Start Date: 08/29/16 Stop Date: 08/31/16 Status: DiscontinuedFlagyl 500 mg, 100 mL, Route: IVPB, Drug form: INJ, [id number], Dosing Weight 86.364, kg, Start date: 08/29/16 2:00:00 KNOT BORER, Duration: 30 day, Stop date: 09/27/16 18:00: 00 KNOT BORER Notes: (Same as: Flagyl) Avoid alcohol. Start Date: 08/29/16 Stop Date: 08/30/16 Status: Discontinuedfluconazole 200 mg, 100 mL, Route: IVPB, Drug form: INJ, [id number], Dosing Weight 86.364, kg, Start date: 169:00:00 KNOT BORER, Duration: 30 day, Stop date: 09/28/16 9:00:00 KNOT BORER Notes: (Same as: Diflucan) Do not refrigerate Start Date: 08/30/16 Stop Date: 08/31/16 Status: Discontinuedfluconazole 200 mg, 1 tab, Route: PO, Drug form: TAB, [id number], Dosing Weight 86.364, kg, Start date: 08/31/16 9:00:00 KNOT BORER, Duration: 7 day, Stop date: 09/06/16 9:00:00 KNOT BORER Notes: (Same as: Diflucan) Start Date: 08/31/16 Stop Date: 08/31/16 Status: Discontinuedfluconazole 200 mg oral tablet 200 mg=1 tab, PO, Daily, X 7 day, # 7 tab, 0 Refill(s) Start Date: 08/31/16 Stop Date: 09/02/16 Status: Completedfurosemide 40 mg oral tablet 40 mg, 1 tab, Route: PO, Drug form: TAB, Daily, Dosing Weight 86.364, kg, Start date: 08/29/16 9:00:00 KNOT BORER, Duration: 30 day, Stop date: 09/27/16 9:00:00 KNOT BORER Notes: (Same as: Lasix) May cause GI upset. Give with food or milk. Start Date: 08/29/16 Stop Date: 08/31/16 Status: DiscontinuedhydrOXYzine hydrochloride 25 mg oral tablet 25 mg, 1 tab, Route: PO, Drug form: TAB, TID, Dosing Weight 86.364, kg, PRN Itching, Start date: 08/29/16 0:53:00 KNOT BORER, Duration: 30 day, Stop date: 0:52:00 KNOT BORER Notes: (Same as: Atarax) Avoid alcohol. Start Date: 08/29/16 Stop Date: 08/31/16 Status: Discontinuedipratropium 0.02% inhalation solution 500 microgram, 2.5 mL, Route: NEB, Drug form: SOLN, ONCE, Dosing Weight 86.364, kg, Start date: 08/30/16 10:18:00 KNOT BORER, Stop date: 08/30/16 10:18:00 KNOT BORER Notes: SEE RT DOCUMENTATION(Same as:Atrovent) Start Date: 08/30/16 Stop Date: 08/30/16 Status: Completedipratropium 0.02% inhalation solution 500 microgram, 2.5 mL, Route: NEB, Drug form: SOLN, Q4H, Dosing Weight 86.364, kg, PRN Wheezing, Start date: 08/30/16 20:42:00 KNOT BORER, Duration: 30 day, Stop date : 09/29/16 20:41:00 KNOT BORER Notes: SEE RT DOCUMENTATION(Same as:Atrovent) Start Date: 08/30/16 Stop Date: 08/31/16 Status: DiscontinuedK-Dur 20 40 mEq, 2 tab, Route: PO, Drug form: ERTAB, Q1H, Start date: 08/29/16 10:00:00 KNOT BORER, Duration: 2 doses or times, Stop date: 08/29/16 11:00:00 KNOT BORER Notes: (Same as: K-Dur 20)"Do Not Crush" With food and full glass of water Start Date: 08/29/16 Stop Date: 08/29/16 Status: Completedlactulose 10 gm, 15 ml, Route: PO, Drug Form: SYRP, Dosing Weight 86.364, kg, BID, Start date: 08/29/16 9:00:00 KNOT BORER, Duration: 30 day, Stop date: 09/27/16 17:00:00 KNOT BORER Notes: (Same as:Chronulac) Start Date: 08/29/16 Stop Date: 08/31/16 Status: Discontinuedlosartan 100 mg, 2 tab, Route: PO, Drug form: TAB, Daily, Dosing Weight 86.364, kg, Start date: 08/29/16 9:00:00 KNOT BORER, Duration: 30 day, Stop date: 09/27/16 9:00:00 KNOT BORER Notes: (Same as: Cozaar) Start Date: 08/29/16 Stop Date: 08/31/16 Status: Discontinuedmeclizine 12.5 mg, 1 tab, Route: PO, Drug form: TAB, TID, Dosing Weight 86.364, kg, PRN Dizziness, Start date:08/29/16 0:53:00 KNOT BORER, Duration: 30 day, Stop date: 0:52:00 KNOT BORER Notes: (Same as: Antivert) Start Date: 08/29/16 Stop Date: 08/31/16 Status: Discontinuedmethocarbamol 750 mg, 1 tab, Route: PO, Drug form: TAB, Q8H, Dosing Weight 86.364, kg, Start date: 08/29/16 8:00:00 KNOT BORER, Duration: 30 day, Stop date: 09/28/16 0:00:00 KNOT BORER Notes: (Same as:Robaxin) Start Date: 08/29/16 Stop Date: 08/31/16 Status: Discontinuedmethocarbamol 750 mg oral tablet 1,500 mg=2 tab, PO, TID, 0 Refill(s) Start Date: 08/29/16 Stop Date: 08/29/16 Status: Discontinuedmetoclopramide 10 mg oral tablet 10 mg=1 tab, PO, [id number], 0 Refill(s) Start Date: 08/29/16 Status: Suspendedmetoclopramide 10 mg oral tablet 10 mg, 1 tab, Route: PO, Drug form: TAB, [id number], Dosing Weight 86.364, kg, Start date: 08/29/16 1:00:00 KNOT BORER, Duration: 30 day, Stop date: 09/27/16 13:00: 00 KNOT BORER Notes: (Same as: Reglan) Take 30 min before meals Start Date: 08/29/16 Stop Date: 08/29/16 Status: Deletedmetolazone 5 mg oral tablet 5 mg=1 tab, PO, Daily, 0 Refill(s) Start Date: 08/29/16 Stop Date: 08/29/16 Status: Discontinuedmorphine Sulfate 2 mg, 1 mL, Route: IVP, Drug form: INJ, Q4H, Dosing Weight 87.273, kg, PRN Pain Score 7-10, Start date: 08/28/16 21:35:00 KNOT BORER, Duration: 30 day, Stop date: 06/05 21:34:00 KNOT BORER Notes: (Same as:MORPhine Sulfate) Start Date: 08/28/16 Stop Date: 08/31/16 Status: DiscontinuedNorco 7.5/325 oral tablet 1 tab, PO, Q6H, PRN Pain, X 15 day, # 60 tab, 0 Refill(s) Start Date: 08/31/16 Stop Date: 09/02/16 Status: Completedpancrelipase 24,000 units-76,000 units-120,000 units oral delayed release capsule (Creon 24,000) 3 cap, Route: PO, Drug Form: DRC, Dosing Weight 86.364, kg, QID-With Food, Start date: 08/29/16 13:00:00 KNOT BORER, Duration: 30 day, Stop date: 09/28/16 12:00: 00 KNOT BORER Notes: Same as: Creon DRC 24 : lipase 24,000 units, protease 76,000 units, amylase 120,000 units Start Date: 08/29/16 Stop Date: 08/31/16 Status: Discontinuedpotassium chloride 20 mEq, PO, [id number], 0 Refill(s) Start Date: 08/29/16 Status: Suspendedpotassium chloride 40 mEq, 2 tab, Route: PO, Drug form: ERTAB, ONCE, Dosing Weight 86.364, kg, Start date: 08/29/16 1:57:00 KNOT BORER, Stop date: 08/29/16 1:57:00 KNOT BORER Notes: (Same as: K-Dur 20)"Do Not Crush" With food and full glass of water Start Date: 08/29/16 Stop Date: 08/29/16 Status: Completedpotassium chloride 20 mEq oral tablet, extended release 20 mEq=1 tab, PO, BID, 0 Refill(s) Start Date: 08/28/16 Stop Date: 08/29/16 Status: DiscontinuedReglan 10 mg, 1 tab, Route: PO, Drug form: TAB, [id number], Dosing Weight 86.364, kg, Start date: 08/29/16 3:00:00 KNOT BORER, Duration: 30 day, Stop date: 09/27/16 15:00: 00 KNOT BORER Notes: (Same as: Reglan) Take 30 min before meals Start Date: 08/29/16 Stop Date: 08/31/16 Status: Discontinuedsodium chloride 0.9% 1000 ml INJ 1,000 mL 1,000 mL, Rate: 75 ml/hr, Infuse over: 13.3 hr, Route: IV, Dosing Weight 87.273 kg, Total Volume: 1,000, Start date: 08/28/16 21:53:00 KNOT BORER, Duration: 30 day, Stop date: 09/27/16 21:52:00 KNOT BORER Start Date: 08/28/16 Stop Date: 08/31/16 Status: DiscontinuedSodium Chloride 0.9% IV 250 mL, Route: IVPB, Start date: 08/28/16 22:09:00 KNOT BORER, Duration: 30 day, Stop date: 09/27/16 22:08:00 KNOT BORER, PRN Line Flush Start Date: 08/28/16 Stop Date: 08/31/16 Status: Discontinuedsucralfate =10 ml, PO, Before Meals & Bedtime, # 200 ml, 0 Refill(s) Start Date: 08/29/16 Status: Suspendedsucralfate 1 gm, 10 mL, Route: PO, Drug form: SUSP, Before Meals & Bedtime, Dosing Weight 86.364, kg, Startdate: 08/29/16 7:30:00 KNOT BORER, Duration: 30 day, Stop date : 09/27/16 21:00:00 KNOT BORER Notes: Enteral feeds may interfere with the absorption of this medication. Shake well. Take 1 hr before or 2 hrs after antacids, dairy pdt, minerals & meals. (Same As: Carafate) Start Date: 08/29/16 Stop Date: 08/31/16 Status: DiscontinuedTums 500 mg, 1 tab, Route: CHEW, Drug form: CHEWTAB, ONCE, Dosing Weight 86.364, kg, PRN Indigestion, Start date: 08/28/16 22:07:00 KNOT BORER Notes: (Same As: Tums)Calcium Carbonate 500 ig=650 mg elemental calcium Dose=_ mg calcium carbonate ( mg elemental calcium) Start Date: 08/28/16 Stop Date: 08/28/16 Status: CompletedTums 500 mg, 1 tab, Route: CHEW, Drug form: CHEWTAB, TID, Dosing Weight 86.364, kg, PRN Indigestion, Priority: NOW, Start date: 08/30/16 20:44:00 KNOT BORER, Duration: 30 day, Stop date: 09/29/16 20:43:00 KNOT BORER Notes: (Same As: Tums)Calcium Carbonate 500 cp=602 mg elemental calcium Dose=_ mg calcium carbonate ( mg elemental calcium) Start Date: 08/30/16 Stop Date: 08/31/16 Status: DiscontinuedTums 500 mg, 1 tab, Route: CHEW, Drug form: CHEWTAB, ONCE, Dosing Weight 86.364, kg, Start date: 160:14:00 KNOT BORER, Stop date: 08/29/16 0:14:00 KNOT BORER Notes: (Same As: Tums)Calcium Carbonate 500 zx=299 mg elemental calcium Dose=_ mg calcium carbonate ( mg elemental calcium) Start Date: 08/29/16 Stop Date: 08/29/16 Status: CompletedZofran 4 mg, 2 mL, Route: IVP, Drug form: INJ, Q6H, Dosing Weight 87.273, kg, PRN Nausea, Start date: 08/28/16 21:36:00 KNOT BORER, Duration: 30 day, Stop date: 21:35:00 KNOT BORER Notes: (Same as: Zofran) MEDICATION WASTE Product Size: 4 mgProduct Wasted: ___ mg Start Date: 08/28/16 Stop Date: 08/31/16 Status: DiscontinuedZofran 4 mg oral tablet 4 mg=1 tab, PO, Q8H, PRN Nausea/vomiting, X 10 day, # 30 tab, 0 Refill(s) Start Date: 08/31/16 Stop Date: 09/02/16 Status: Completed Results ELECTROLYTES Most recent to oldest 1 2 3 [Reference Range]: Sodium Lvl [135-145 mEq/L] 139 mEq/L 137 mEq/L 137 mEq/L (08/31/16 6:39 AM) (08/30/16 4:58 AM) (08/29/16 4:00 AM) Potassium Lvl [3.5-5.1 3.7 mEq/L 1 3.6 mEq/L 2 2.8 mEq/L 3 mEq/L] (08/31/16 6:39 AM) (08/30/16 4:58 AM) *CRIT* (08/29/16 4:00 AM) Chloride Lvl [95-109 mEq/L] 104 mEq/L 101 mEq/L 96 mEq/L (08/31/16 6:39 AM) (08/30/16 4:58 AM) (08/29/16 4:00 AM) CO2 [24-32 mEq/L] 29 mEq/L 29 mEq/L 34 mEq/L (08/31/16 6:39 AM) (08/30/16 4:58 AM) *HI* (08/29/16 4:00 AM) AGAP [10.0-20.0 mEq/L] 9.7 mEq/L 10.6 mEq/L 9.8 mEq/L *LOW* (08/30/16 4:58 AM) *LOW* (08/31/16 6:39 AM) (08/29/16 4:00 AM) 1Result Comment: Specimen Slightly Hemolyzed.2Result Comment: Specimen Slightly Hemolyzed.3Result Comment: Critical Result(s) called to [facility] at 2015 07:56 by SANJANA. Read back OK.CHEM PANEL Most recent to oldest 1 2 3 [Reference Range]: Creatinine Lvl [0.50-1.40 0.90 mg/dL 0.90 mg/dL 0.90 mg/dL mg/dL] (08/31/16 6:39 AM) (08/30/16 4:58 AM) (08/29/16 4:00 AM) eGFR 83 mL/min/1.73m2 1 83 mL/min/1.73m2 2 83 mL/min/1.73m2 3 *NA* *NA* *NA* (08/31/16 6:39 AM) (08/30/16 4:58 AM) (08/29/16 4:00 AM) BUN [7-22 mg/dL] 6 mg/dL 6 mg/dL 8 mg/dL *LOW* *LOW* (08/29/16 4:00 AM) (08/31/16 6:39 AM) (08/30/16 4:58 AM) B/C Ratio [6-25] 9 9 (08/29/16 4:00 AM) (08/28/16 10:59 PM) Glucose Lvl [70-99 mg/dL] 137 mg/dL 102 mg/dL 117 mg/dL *HI* *HI* *HI* (08/31/16 6:39 AM) (08/30/16 4:58 AM) (08/29/16 4:00 AM) Total Protein [6.4-8.4 g/dL] 6.7 g/dL 7.3 g/dL (08/29/16 4:00 AM) (08/28/16 10:59 PM) Albumin Lvl [3.5-5.0 g/dL] 2.8 g/dL 3.1 g/dL *LOW* *LOW* (08/29/16 4:00 AM) (08/28/16 10:59 PM) Globulin [2.7-4.2 g/dL] 3.9 g/dL 4.2 g/dL (08/29/16 4:00 AM) (08/28/16 10:59 PM) A/G Ratio [0.7-1.6] 0.7 0.7 (08/29/16 4:00 AM) (08/28/16 10:59 PM) Calcium Lvl [8.5-10.5 mg/dL] 8.5 mg/dL 8.8 mg/dL 8.4 mg/dL (08/31/16 6:39 AM) (08/30/16 4:58 AM) *LOW* (08/29/16 4:00 AM) Phosphorus [2.5-4.5 mg/dL] 2.6 mg/dL (08/29/16 4:00 AM) Magnesium Lvl [1.8-2.4 mg/dL] 2.3 mg/dL (08/29/16 4:00 AM) ALT [0-65 unit/L] 17 unit/L 18 unit/L (08/29/16 4:00 AM) (08/28/16 10:59 PM) AST [0-37 unit/L] 15 unit/L 23 unit/L (08/29/16 4:00 AM) (08/28/16 10:59 PM) Alk Phos [39-136 unit/L] 96 unit/L 103 unit/L (08/29/16 4:00 AM) (08/28/16 10:59 PM) Bili Total [0.2-1.3 mg/dL] 0.2 mg/dL 0.3 mg/dL (08/29/16 4:00 AM) (08/28/16 10:59 PM) Lipase Lvl [73-393 unit/L] 200 unit/L (08/28/16 10:59 PM) Procalcitonin Lvl [0.00-0.10 <0.05 ng/mL ng/mL] (08/29/16 9:50 PM) 1Result Comment: The eGFR is calculated [...] eGFR should be multiplied by the estimated BMI.LIPIDS Most recent to oldest [Reference Range]: 1 2 3 CHD Risk [3.90-5.80] 2.60 *LOW* (08/28/16 10:59 PM) Chol [<=199 mg/dL] 148 mg/dL (08/28/16 10:59 PM) Trig [<=149 mg/dL] 111 mg/dL (08/28/16 10:59 PM) HDL [>=61 mg/dL] 57 mg/dL *LOW* (08/28/16 10:59 PM) LDL (Calculated) [<=99 mg/dL] 69 mg/dL (08/28/16 10:59 PM) VLDL 22 *NA* (08/28/16 10:59 PM) URINE AND STOOL Most recent to oldest [Reference Range]: 1 2 3 UA Turbidity [Clear] Clear (08/29/16 12:26 AM) UA Color [Yellow] Light Yellow *NA* (08/29/16 12:26 AM) UA pH [5.0-8.0] 7.0 (08/29/16 12:26 AM) UA Spec Grav [<=1.030] 1.003 (08/29/16 12:26 AM) UA Glucose [Negative mg/dL] Negative mg/dL *NA* (08/29/16 12:26 AM) UA Blood [Negative] Negative (08/29/16 12:26 AM) UA Ketones [Negative mg/dL] Trace mg/dL *ABN* (08/29/16 12:26 AM) UA Protein [Negative mg/dL] Negative mg/dL (08/29/16 12:26 AM) UA Urobilinogen [0.1-1.0 mg/dL] <=1.0 mg/dL *NA* (08/29/16 12:26 AM) UA Bili [Negative] Negative *NA* (08/29/16 12:26 AM) UA Leuk Est [Negative] Negative (08/29/16 12:26 AM) UA Nitrite [Negative] Negative (08/29/16 12:26 AM) UA WBC [0-5 /HPF] 1 /HPF (08/29/16 12:26 AM) UA RBC [0-2 /HPF] <1 /HPF (08/29/16 12:26 AM) UA Bacteria [None Seen /HPF] Moderate /HPF *ABN* (08/29/16 12:26 AM) UA Sq Epi [Few /LPF] Few /LPF *NA* (08/29/16 12:26 AM) UA Mucus [None Seen /LPF] Few /LPF *NA* (08/29/16 12:26 AM) HEMATOLOGY Most recent to oldest 1 2 3 [Reference Range]: WBC [3.7-10.4 K/CMM] 18.9 K/CMM 19.0 K/CMM 18.2 K/CMM *HI* *HI* *HI* (08/31/16 6:39 AM) (08/30/16 4:58 AM) (08/29/16 12:32 PM) RBC [4.20-5.40 M/CMM] 3.74 M/CMM 4.08 M/CMM 4.41 M/CMM *LOW* *LOW* (08/29/16 12:32 PM) (08/31/16 6:39 AM) (08/30/16 4:58 AM) Hgb [12.0-16.0 g/dL] 8.9 g/dL 9.6 g/dL 10.0 g/dL *LOW* *LOW* *LOW* (08/31/16 6:39 AM) (08/30/16 4:58 AM) (08/29/16 12:32 PM) Hct [36.0-48.0 %] 27.0 % 30.3 % 32.4 % *LOW* *LOW* *LOW* (08/31/16 6:39 AM) (08/30/16 4:58 AM) (08/29/16 12:32 PM) MCV [80.0-98.0 fL] 72.3 fL 74.1 fL 73.5 fL *LOW* *LOW* *LOW* (08/31/16 6:39 AM) (08/30/16 4:58 AM) (08/29/16 12:32 PM) MCH [27.0-31.0 pg] 23.7 pg 23.5 pg 22.7 pg *LOW* *LOW* *LOW* (08/31/16 6:39 AM) (08/30/16 4:58 AM) (08/29/16 12:32 PM) MCHC [32.0-36.0 g/dL] 32.8 g/dL 31.8 g/dL 30.8 g/dL (08/31/16 6:39 AM) *LOW* *LOW* (08/30/16 4:58 AM) (08/29/16 12:32 PM) RDW [11.5-14.5 %] 16.7 % 16.5 % 16.3 % *HI* *HI* *HI* (08/31/16 6:39 AM) (08/30/16 4:58 AM) (08/29/16 12:32 PM) Platelet [133-450 K/CMM] 289 K/CMM 307 K/CMM 342 K/CMM (08/31/16 6:39 AM) (08/30/16 4:58 AM) (08/29/16 12:32 PM) MPV [7.4-10.4 fL] 7.7 fL 8.1 fL 7.9 fL (08/31/16 6:39 AM) (08/30/16 4:58 AM) (08/29/16 12:32 PM) Segs [45.0-75.0 %] 63.0 % 67.6 % 68.1 % (08/31/16 6:39 AM) (08/30/16 4:58 AM) (08/29/16 12:32 PM) Bands [0.0-11.0 %] 0.0 % (08/28/16 10:59 PM) Lymphocytes [20.0-40.0 %] 26.5 % 22.0 % 20.5 % (08/31/16 6:39 AM) (08/30/16 4:58 AM) (08/29/16 12:32 PM) Atypical Lymphs [<=0.0 %] 0.0 % (08/28/16 10:59 PM) Monocytes [2.0-12.0 %] 7.5 % 8.1 % 9.1 % (08/31/16 6:39 AM) (08/30/16 4:58 AM) (08/29/16 12:32 PM) Eosinophils [0.0-4.0 %] 2.3 % 2.0 % 1.3 % (08/31/16 6:39 AM) (08/30/16 4:58 AM) (08/29/16 12:32 PM) Basophils [0.0-1.0 %] 0.7 % 0.3 % 1.0 % (08/31/16 6:39 AM) (08/30/16 4:58 AM) (08/29/16 12:32 PM) Segs-Bands # [1.5-8.1 11.9 K/CMM 12.8 K/CMM 12.4 K/CMM K/CMM] *HI* *HI* *HI* (08/31/16 6:39 AM) (08/30/16 4:58 AM) (08/29/16 12:32 PM) Lymphocytes # [1.0-5.5 5.0 K/CMM 4.2 K/CMM 3.7 K/CMM K/CMM] (08/31/16 6:39 AM) (08/30/16 4:58 AM) (08/29/16 12:32 PM) Monocytes # [0.0-0.8 K/CMM] 1.4 K/CMM 1.5 K/CMM 1.7 K/CMM *HI* *HI* *HI* (08/31/16 6:39 AM) (08/30/16 4:58 AM) (08/29/16 12:32 PM) Eosinophils # [0.0-0.5 0.4 K/CMM 0.4 K/CMM 0.2 K/CMM K/CMM] (08/31/16 6:39 AM) (08/30/16 4:58 AM) (08/29/16 12:32 PM) Basophils # [0.0-0.2 K/CMM] 0.1 K/CMM 0.1 K/CMM 0.2 K/CMM (08/31/16 6:39 AM) (08/30/16 4:58 AM) (08/29/16 12:32 PM) Anisocyte [None Seen] 1+ *ABN* (08/28/16 10:59 PM) Microcyte [None Seen] 2+ 2+ 2+ *ABN* *ABN* *ABN* (08/31/16 6:39 AM) (08/30/16 4:58 AM) (08/29/16 12:32 PM) Plt Morph Normal (08/28/16 10:59 PM) Immunizations No data available for this [...] 04/2015 Assessment and Plan Extracted from: Title: Progress Note * Author: Kasia Daly MD Date: 08/31/16 Impression and Plan The patient was seen and examined by me with the resident/FURNITURE MAKER/PA and I agree with the History/Exam documented. acute on chronic abdominal pain --CT shows Gastritis-- will give po meds for d/c acute on chronic Gastritis-- wbc inc---cleared by ID for d/c leucocytosis--- may be chronic, seen by ID severe acute hypokalemia poss sec to vomiting-- resolved acute N/V/D-- continue goal of controlling symtopms s/p ERCP/ EGD plan to d/c today primary nurse called DR Pastrana office, pt can f/u up with her outpt, she does not appear to be in a lot of pain today but has been taking IV pain med rounfd the clock Extracted from: Title: GI Consult Author: Chago Edwards MD Date: 08/29/16 Impression and Plan 55 year old female with history of ? pancreatitis (Normal CT scan and liapse) and also gastritis here with abdominal pain. - Keep the patient on PPI - Clear liquid diet - Obtain MRCP to rule out any pancreatic parenchymal abnormility - NPO at midnight - EGD tomorrow to evaluate the stomach given having abnormal imaging showed gastritis - Follow based on the CT result Extracted from: Title: Medicine H&P * Author: Kenney Lau DO Date: 08/28/16 Patient: MARNIE KATHLEEN Age: 55 years Sex: Female : 1960 Associated Diagnoses: None Author: Kenney Lau DO Subjective Chief complaint: gastritis, direct admission from [facility] PCP: Dr Pearl Salazar GI: Dr Anderson Caustic Liquor Maker: Dr. Jauregui Heme: Dr. Barajas History of present illness: 55-year-old -[place] woman with a past medical history significant for hypertension, mitral valve prolapse, GERD, irritable bowel syndrome, CHF, asthma several prior abdominal surgeries, neck oliveros rgeries, chronic pain, chronic leukocytosis, h/o constipation on lactulose per GI Dr Pastrana, who was transferred from [facility] due to further eval of abdominal pain and N/V. Patient w as initially admitted on Aug 26 at the [facility] due to intractible nasuea and vomiting. She reported that 3 days ago on Saturday she had seen an outpatient doctor who diagnosed her with upper risk for infection and prescribed azithromycin. She took the first dose on Saturday at 12 PM and 2 hours later felt severe abdominal pain, of note she did not eat much that day and also had the persistent N/V. She had a C T Scan of abd/pelvis with contrast on Aug 26 that showed inflammatory or infectious gastritis. (paperwork in chart). She was given IVF and pain control and IV Abx flagyl. she has tolerated a clear liqui d diet however still feels tender to 10 stomach pain and diffuse abdomen primarily epigastric. She still reports nausea, but no vomiting today. She has been getting morphine and Zofran for symptomatically controlled. Patient denies any history of EGDs or colonoscopy in the past. Patient denies any use of NSAIDs including ibuprofen and Aleve. Patient reports checking to wine coolers on Saturday 3 days ago. Prior t o that patient reports that she has not drank in an months although this reported history of beers in the past. Of note, she was recently worked up by Heme/Onc Dr. Randolph for chronic leukocytosis and had a BM biopsy for which she cannot currently tell me the results. PmHx: hypertension, mitral valve prolapse, GERD, irritable bowel syndrome, CHF , asthma several prior abdominal surgeries, neck surgeries, chronic pain, chronic leukocytosis history of multiple episodes of pancreatitis PSx: Multiple abdominal surgeries, hysterectomy 1998, cholecystectomy in 1984, appendectomy 1985, recent bronchoscopy with right lower lung biopsy SH: Has been smoking since age 21, reports 1 pack of cigarettes will last 2 weeks. Social alcohol reports a couple beers a week. No illicit drugs. Lives with and [place]. FmHx: Father of lung cancer, mother had colon cancer. Meds: as per Med reconciliation Allergies: Benadryl, Kenalog, Levbid, Levaquin, penicillin, triamcinolone, norepinephrine. Talwin, tape, pentazocine, Review of Systems Constitutional symptoms: No fever, no chills, no weakness, no fatigue. Skin symptoms: Negative except as documented in HPI, no jaundice, no rash, no petechiae. Eye symptoms: Vision unchanged, no recent vision problems, no pain, no discharge, no blurred vision. ENMT symptoms: Negative except as documented in HPI, no ear pain, no sore throat, no nasal congestion. Respiratory symptoms: Negative except as documented in HPI, no shortness of breath, no orthopnea, no cough, no hemoptysis, no sputum production, no stridor , no wheezing. Cardiovascular symptoms: Negative except as documented in HPI, no chest pain, no palpitations, no tachycardia, no syncope, no diaphoresis, no peripheral edema. Gastrointestinal symptoms: No Constipation, no nausea, no vomiting, no diarrhea, no rectal bleeding, No abdominal pain Genitourinary symptoms: No dysuria, no hematuria. Musculoskeletal symptoms: No back pain, no Muscle pain, no Joint pain. Neurologic symptoms: Negative except as documented in HPI, denies neck pain, no headache, no dizziness, no altered level of consciousness, no numbness, no tingling, no weakness. Psychiatric symptoms: Negative except as documented in HPI. Endocrine symptoms: Negative except as documented in HPI. Hematologic/Lymphatic symptoms: Negative except as documented in HPI. Allergy/immunologic symptoms: Negative except as documented in HPI. Health Status Allergies: Allergic Reactions (All) Severity Not Documented Benadryl- Hives. Kenalog- Paralysis and kenalog. Levabid- Hives. Levofloxacin- Bumps. Norepinephrine- Hives. Penicillins- Nausea. Pentazocine- Hives. Talwin- Hives and unfunctional. Tape- Blister. Triamcinolone topical- Hives. Canceled/Inactive Reactions (All) Severity Not Documented Cefdinir- No reactions were documented. Ecotrin- No reactions were documented. Ibuprofen- No reactions were documented. Problem list: All Problems Anxiety / SNOMED CT 35183435 / Confirmed Asthma / SNOMED CT 322316904 / Confirmed CAD - Coronary artery disease / SNOMED CT 1632815840 / Confirmed Chest pain / SNOMED CT 69314872 / Confirmed Gastritis / ICD-9-CM 535.50 / Confirmed GERD - Gastro-esophageal reflux disease / SNOMED CT 2108088972 / Confirmed Heartburn / ICD-9-CM 787.1 / Confirmed HTN - Hypertension / SNOMED CT 2751465738 / Confirmed Mitral valve prolapse / ICD-9-CM 424.0 / Confirmed Pancreatitis / SNOMED CT 777266816 / Confirmed Objective Meds Scheduled Meds: None Unscheduled Meds: None PRN Meds (2):morphine Sulfate, ondansetron (Zofran) One Time Meds: None Continuous Infusions: None I&O Input/Output Record In Out Bal 24hr Tot 0 0 0 24hr Tot 0 0 0 VS/Measurements Vital Signs (last 24 hrs) Last Charted Temp Oral 98.6 DegF (AUG 28:40) Heart Rate Peripheral 78 bpm (AUG 28:40) Resp Rate 20 BRMIN (AUG 28:) SBP 126 mmHg (AUG 28:) DBP 80 mmHg (AUG 28:40) SpO2 95 % (AUG 28:40) General: Alert and oriented, No acute distress. Eye: Pupils are equal, round and reactive to light. Neck: Supple. Respiratory: Lungs are clear to auscultation. Cardiovascular: Normal rate, Regular rhythm, No murmur. Gastrointestinal: Soft, Non-distended, Normal bowel sounds, diffusely tender to palpation . Musculoskeletal Normal range of motion. Normal strength. Integumentary: Warm, Dry, Intact. Neurologic: Alert, Oriented, Normal sensory. Review / Management Results review: No qualifying data available. Impression and Plan The patient was seen and examined by me with the resident/FURNITURE MAKER/PA and I agree with the History/Exam documented. 55-year-old -[place] woman with a past medical history significant for hypertension, mitral valve prolapse, GERD, irritable bowel syndrome, CHF, asthma several prior abdominal surgeries, neck oliveros rgeries, chronic pain, chronic leukocytosis, h/o constipation on lactulose per GI Dr Pastrana, who was transferred from [facility] due to further eval of abdominal pain and N/V. Gastritis 2/2 infectious or inflammatory- GI consult, will cont IV Abx: Flagyl , (cipro allergy), IVF, Pain control, PPI, check cmp, lipase HTN- resume losartan, coreg GERD- PPI MVP- monitor IBS- cont GI home meds Iron Deficiency Anemia- resume home iron Chronic Leukocytosis- been evaluated by Dr. Randolph in 03/2016 Asthma- cont home meds Constipation- resume lactulose, pt takes at home dvt prophy: scs, ambulation, start lovenox 40 pt is full code Addendum by Kenney Lau DO on 08/29/2016 02:08 Additional A/P: Anxiety- cont home meds, chronic
--- OUTSIDE RECORDS SUMMARY | 2018-10-23 12:18 | XMS REPORT | Summary of Care ---
:1960 Author Organization [facility] Address [address] [place] [id number]- Encounter JUANPABLO Gray(AKHIL) [id number] Date(s): 12/18/16 - 12/18/16 [facility] [address] [place] [address]- [phone] Final: Other cervical disc degeneration, unspecified cervical region Final: Sprain of ligaments of cervical spine, initial encounter Final: Spinal stenosis, cervical region Final: Other cervical disc degeneration at C6-C7 level Discharge Disposition: Home or Self Care Attending Physician: Estevan Morelos MD Referring Physician: Estevan Morelos MD Vital Signs Most recent to oldest 1 2 3 [Reference Range]: Height 157.48 cm (12/18/16 11:30 AM) Blood Pressure [90-140/60-90 132/73 mmHg 133/81 mmHg 139/89 mmHg mmHg] (12/18/16 1:30 PM) (12/18/16 1:15 PM) (12/18/16 1:00 PM) Respiratory Rate [14-20 BRMIN] 17 BRMIN 17 BRMIN 16 BRMIN (12/18/16 1:30 PM) (12/18/16 1:15 PM) (12/18/16 1:00 PM) Peripheral Pulse Rate [60-100 82 bpm 80 bpm 75 bpm bpm] (12/18/16 1:30 PM) (12/18/16 1:15 PM) (12/18/16 1:00 PM) Weight 85.909 kg (12/18/16 11:30 AM) Body Mass Index 34.64 m2 (12/18/16 11:30 AM) Problem List Condition Effective Dates Status [...] on 02/15/15. Originally documented as KENALOG. Medications No data available for this section Results No data available for this section [...] Household alcohol concerns: No. Smoking Status Current some day smoker; Type: Cigarettes; Tobacco use per day: 40; Number of years: 20; Previous treatment: None; Exposure to Tobacco Smoke None; Other Tobacco Frequency pt states quit 6 mos ago; Cigarette Smoking Last 365 Days Yes; Reg Smoking Cessation Counseling No1, 2 1laasst time pt smoke is last week Saturday, pt said she smoke occassionally not everyday.2Pt reports she quit smoking 04/2015 Assessment and Plan No data available for this section
--- OUTSIDE RECORDS SUMMARY | 2018-10-23 12:18 | XMS REPORT | Summary of Care ---
:1960 Author Organization [facility] Address [facility] [place], [place] [address]- Encounter HQ Isaac(FIN) [id number] Date(s): 09/19/16 - 09/21/[address] [address]- Discharge Disposition: Home or Self Care Attending Physician: Seamus Esqueda MD Admitting Physician: Seamus Esqueda MD Vital Signs Most recent to oldest 1 2 3 [Reference Range]: Height 157.48 cm (09/19/16 1:51 PM) Current Weight 87.545 kg 87.926 kg (09/21/16 9:29 AM) (09/20/16 1:00 PM) Temperature Oral [96.4-99.1 98.2 DegF 97.9 DegF 98.1 DegF DegF] (09/21/16 8:00 AM) (09/21/16 4:00 AM) (09/21/16 12:00 AM) Blood Pressure [90-140/60-90 129/81 mmHg 120/76 mmHg 121/75 mmHg mmHg] (09/21/16 8:00 AM) (09/21/16 4:00 AM) (09/21/16 12:00 AM) Respiratory Rate [14-20 20 BRMIN 20 BRMIN 20 BRMIN BRMIN] (09/21/16 8:00 AM) (09/21/16 4:00 AM) (09/21/16 12:00 AM) Peripheral Pulse Rate [60-100 82 bpm 76 bpm 78 bpm bpm] (09/21/16 8:00 AM) (09/21/16 4:00 AM) (09/21/16 12:00 AM) Weight 86.364 kg (09/19/16 1:51 PM) Body Mass Index 34.82 m2 (09/19/16 1:51 PM) Problem List Condition Effective Dates Status [...] topical3 hives Active 1Data migrated from [employer] on 02/15/15. Originally documented as LEVOPHED.2Data migrated from [employer] on 02/15/15. Originally documented as TALWIN.3Data migrated from [employer] on 02/15/15. Originally documented as KENALOG. Medications albuterol 0.083% inhalation solution 2.49 mg, 3 mL, Route: INHALATION, Drug form: SOLN, Q6H, Dosing Weight 86.364, kg , PRN as needed for wheezing, Start date: 09/19/16 17:09:00 LINE UP WORKER, Duration: 30 day, Stop date: 10/19/16 17:08:00 LINE UP WORKER Notes: SEE RT DOCUMENTATION (Same as: Proventil) Start Date: 09/19/16 Stop Date: 09/21/16 Status: DiscontinuedALPRAZOLam 0.25 mg oral tablet 0.25 mg, 1 tab, Route: PO, Drug form: TAB, Bedtime, Dosing Weight 86.364, kg, Start date: 09/19/16 21:00:00 LINE UP WORKER, Duration: 30 day, Stop date: 10/18/16 21:00: 00 LINE UP WORKER Notes: With food or milk(Same as: Xanax) Start Date: 09/19/16 Stop Date: 09/21/16 Status: DiscontinuedAmitiza 24 microgram, 1 cap, Route: PO, Drug form: CAP, BID, Dosing Weight 86.364, kg, Start date: 09/20/16 9:00:00 LINE UP WORKER, Duration: 30 day, Stop date: 10/19/16 17:00: 00 LINE UP WORKER Notes: Same as Amitiza (Do Not Crush) Non Formulary Start Date: 09/20/16 Stop Date: 09/21/16 Status: DiscontinuedAmitiza 24 mcg oral capsule 24 microgram=1 cap, PO, BID, # 60 cap, 0 Refill(s) Start Date: 09/19/16 Status: Orderedamitriptyline 100 mg, 1 tab, Route: PO, Drug form: TAB, Bedtime, Dosing Weight 86.364, kg, Start date: 09/19/16 21:00:00 LINE UP WORKER, Duration: 30 day, Stop date: 10/18/16 21:00: 00 LINE UP WORKER Notes: (Same as: Elavil) Start Date: 09/19/16 Stop Date: 09/21/16 Status: Discontinuedamitriptyline 100 mg oral tablet 100 mg=1 tab, PO, Bedtime, 0 Refill(s) Start Date: 09/20/16 Status: Orderedcarvedilol 3.125 mg, 1 tab, Route: PO, Drug form: TAB, BID, Dosing Weight 86.364, kg, Start date: 09/20/16 9:00:00 LINE UP WORKER, Duration: 30 day, Stop date: 10/19/16 17:00: 00 LINE UP WORKER Notes: Give with food. (Same As: Coreg) Start Date: 09/20/16 Stop Date: 09/21/16 Status: Discontinuedcholestyramine 4 g/5 g oral powder 4 gm, PO, BID, # 180 pkt, 0 Refill(s) Start Date: 09/19/16 Status: OrderedCombivent Respimat CFC free 100 mcg-20 mcg/inh inhalation aerosol 2 puff, Route: INHALATION, Drug Form: AERO, Dosing Weight 86.364, kg, QID, Start date: 09/19/16 21:00:00 LINE UP WORKER, Duration: 30 day, Stop date: 10/19/16 17:00: 00 LINE UP WORKER Notes: Same as: Combivent RespimatWASTE: Aerosol - Return to Pharmacy Start Date: 09/19/16 Stop Date: 09/21/16 Status: DiscontinuedCreon 24,000 units oral delayed release capsule 1 cap, PO, QID, 0 Refill(s) Start Date: 09/19/16 Status: OrderedCreon 24,000 units oral delayed release capsule 1 cap, Route: PO, Drug Form: DRC, Dosing Weight 86.364, kg, QID, Start date: 21:00:00 LINE UP WORKER, Duration: 30 day, Stop date: 10/19/16 17:00:00 LINE UP WORKER Notes: Same as: Bev PALAFOXC 24 : lipase 24,000 units, protease 76,000 units, amylase 120,000 units Start Date: 09/19/16 Stop Date: 09/20/16 Status: Discontinueddocusate 100 mg, 1 cap, Route: PO, Drug form: CAP, BID, Dosing Weight 86.364, kg, Start date: 09/20/16 9:00:00 LINE UP WORKER, Duration: 30 day, Stop date: 10/19/16 17:00:00 LINE UP WORKER Notes: (Same as: Colace) (Do Not Crush) Start Date: 09/20/16 Stop Date: 09/21/16 Status: Discontinueddocusate 100 mg, PO, BID, 0 Refill(s) Start Date: 09/19/16 Status: OrderedhydrOXYzine hydrochloride 25 mg oral tablet 25 mg, 1 tab, Route: PO, Drug form: TAB, TID, Dosing Weight 86.364, kg, PRN Itching, Start date: 09/19/16 17:10:00 LINE UP WORKER, Duration: 30 day, Stop date: 17:09:00 LINE UP WORKER Notes: (Same as: Atarax) Avoid alcohol. Start Date: 09/19/16 Stop Date: 09/21/16 Status: Discontinuedlactulose 10 g/15 mL oral syrup 10 gm, 15 mL, Route: PO, Drug Form: SYRP, Dosing Weight 86.364, kg, BID, PRN Constipation, Start date: 09/19/16 17:10:00 LINE UP WORKER, Duration: 30 day, Stop date: 17:09:00 LINE UP WORKER Notes: (Same as:Chronulac) Start Date: 09/19/16 Stop Date: 09/21/16 Status: Discontinuedlosartan 100 mg, 2 tab, Route: PO, Drug form: TAB, Daily, Dosing Weight 86.364, kg, Start date: 09/20/16 9:00:00 LINE UP WORKER, Duration: 30 day, Stop date: 10/19/16 9:00:00 LINE UP WORKER Notes: (Same as: Corriear) Start Date: 09/20/16 Stop Date: 09/21/16 Status: DiscontinuedMaalox Advanced Regular Strength SUSP 30 mL, Route: PO, Drug Form: SUSP, Dosing Weight 86.364, kg, ONCE, Start date: 09/19/16 20:42:00 LINE UP WORKER, Stop date: 09/19/16 20:42:00 LINE UP WORKER Notes: (aluminum hydroxide-magnesium hyd-simethicone [phone]/5ml 30 ml ud HERNAN) Start Date: 09/19/16 Stop Date: 09/19/16 Status: Completedmeclizine 12.5 mg, 1 tab, Route: PO, Drug form: TAB, TID, Dosing Weight 86.364, kg, PRN Dizziness, Start date:09/19/16 17:11:00 LINE UP WORKER, Duration: 30 day, Stop date: 17:10:00 LINE UP WORKER Notes: (Same as: Antivert) Start Date: 09/19/16 Stop Date: 09/21/16 Status: Discontinuedmeclizine 12.5 mg oral tablet 12.5 mg=1 tab, PO, PRN, 0 Refill(s) Start Date: 09/19/16 Status: Orderedmethocarbamol 750 mg, 1 tab, Route: PO, Drug form: TAB, Q8H, Dosing Weight 86.364, kg, PRN Pain Score 4-6, Start date: 09/19/16 17:11:00 LINE UP WORKER, Duration: 30 day, Stop date: 10/19/16 17:10:00 LINE UP WORKER Notes: (Same as:Robaxin) Start Date: 09/19/16 Stop Date: 09/21/16 Status: Discontinuedmetoclopramide 10 mg oral tablet 10 mg, 1 tab, Route: PO, Drug form: TAB, [id number], Dosing Weight 86.364, kg, Start date: 09/19/16 18:00:00 LINE UP WORKER, Duration: 30 day, Stop date: 10/19/16 6:00: 00 LINE UP WORKER Notes: (Same as: Reglan) Take 30 min before meals Start Date: 09/19/16 Stop Date: 09/21/16 Status: DiscontinuedMiraLax 17 gm, 1 pkt, Route: PO, Drug form: PWDR, BID, Dosing Weight 86.364, kg, Start date: 09/20/16 9:00:00 LINE UP WORKER, Duration: 30 day, Stop date: 10/19/16 17:00:00 LINE UP WORKER Notes: Dissolve in 8 oz of water or juice.(Same as: Miralax) Start Date: 09/20/16 Stop Date: 09/21/16 Status: DiscontinuedMiraLax 17 gm, PO, BID, 0 Refill(s) Start Date: 09/19/16 Status: Orderedmontelukast 10 mg, 1 tab, Route: PO, Drug form: TAB, Daily, Dosing Weight 86.364, kg, Start date: 09/20/16 9:00:00 LINE UP WORKER, Duration: 30 day, Stop date: 10/19/16 9:00:00 LINE UP WORKER Notes: (Same as:Singulair) Start Date: 09/20/16 Stop Date: 09/21/16 Status: Discontinuedmorphine Sulfate 1 mg, 0.25 mL, Route: IV, Drug form: INJ, Q3H, PRN Pain Score 4-6, Start date: 09/19/16 15:40:00 LINE UP WORKER, Stop date: 10/19/16 15:39:00 LINE UP WORKER Notes: (Same as:MORPhine Sulfate) Start Date: 09/19/16 Stop Date: 09/21/16 Status: Discontinuedomeprazole 40mg/sod. bicar 1100mg (own med) omeprazole 40mg/sod. bicar 1100mg (own med), 1 cap, Drug form: MISC, Route: PO, Daily, 09/21/16 9:00:00 LINE UP WORKER, Duration: 30 day, Stop date: 10/20/16 9:00:00 LINE UP WORKER Start Date: 09/21/16 Stop Date: 09/21/16 Status: Discontinuedomeprazole-sodium bicarbonate 20 mg-1680 mg oral powder 1 pkt, Route: PO, Drug Form: PDR/REC, Dosing Weight 86.364, kg, Daily, Start date: 09/20/16 9:00:00 LINE UP WORKER, Duration: 30 day, Stop date: 10/19/16 9:00:00 LINE UP WORKER Start Date: 09/20/16 Stop Date: 09/19/16 Status: DeletedOmnipaque 300 injectable solution 85 mL, Route: IVP, Drug Form: SOLN, Dosing Weight 86.364, kg, ONCALL, GFR > 45 mL/min, STAT, Start date: 09/19/16 17:06:00 LINE UP WORKER, Duration: 1 doses or times Notes: (Same as:Omnipaque 300).WASTE: F/P - Black; E - Municipal Trash Bin Start Date: 09/19/16 Stop Date: 09/19/16 Status: Completedondansetron 0 Refill(s) Start Date: 09/19/16 Stop Date: 09/19/16 Status: Deletedondansetron 4 mg oral tablet 4 mg=1 tab, PO, Q8H, 0 Refill(s) Start Date: 09/19/16 Status: Orderedpancrelipase 3 cap, Route: PO, Drug Form: DRC, QID-Before Meals, Start date: 09/20/16 16:30: 00 LINE UP WORKER, Duration: 30 day, Stop date: 10/20/16 11:30:00 LINE UP WORKER Notes: Same as: Bev PALAFOXC 24 : lipase 24,000 units, protease 76,000 units, amylase 120,000 units Start Date: 09/20/16 Stop Date: 09/21/16 Status: DiscontinuedpredniSONE 20 mg, PO, BID, Quantity sufficient, 0 Refill(s) Start Date: 09/19/16 Status: OrderedpredniSONE 20 mg, 1 tab, Route: PO, Drug form: TAB, BID, Dosing Weight 86.364, kg, Start date: 09/20/16 9:00:00CST, Duration: 30 day, Stop date: 10/19/16 17:00:00 LINE UP WORKER Notes: Take with food. Start Date: 09/20/16 Stop Date: 09/21/16 Status: DiscontinuedProtonix 40 mg, 1 tab, Route: PO, Drug form: ECTAB, Daily, Start date: 09/20/16 9:00:00 LINE UP WORKER, Duration: 30 day, Stop date: 10/19/16 9:00:00 LINE UP WORKER Notes: Tablet should not be chewed or crushed.(Same as: Protonix) Start Date: 09/20/16 Stop Date: 09/20/16 Status: Discontinuedsodium chloride 0.9% 1000 ml INJ 1,000 mL 1,000 mL, Rate: 75 ml/hr, Infuse over: 13.3 hr, Route: IV, Dosing Weight 86.364 kg, Total Volume: 1,000, Start date: 09/19/16 17:09:00 LINE UP WORKER, Duration: 30 day, Stop date: 10/19/16 17:08:00 LINE UP WORKER Start Date: 09/19/16 Stop Date: 09/21/16 Status: Discontinuedsucralfate 1 gm, 1 tab, Route: PO, Drug form: TAB, QID-Before Meals, Dosing Weight 86.364, kg, Start date: 09/19/16 21:00:00 LINE UP WORKER, Duration: 30 day, Stop date: 10/19/16 16: 30:00 LINE UP WORKER Notes: May interfere w/enteral feeds - Take 1 hr before or 2 hr after antacids , dairy pdt, meals & minerals - On empty stomach. (Same As: Carafate) Start Date: 09/19/16 Stop Date: 09/21/16 Status: Discontinuedsucralfate 1 g oral tablet 1 gm=1 tab, PO, QID-Before Meals, 0 Refill(s) Start Date: 09/19/16 Status: OrderedZofran 4 mg, 2 mL, Route: IV, Drug form: INJ, Q6H, PRN Nausea, Start date: 09/19/16 15: 39:00 LINE UP WORKER, Duration:30 day, Stop date: 10/19/16 15:38:00 LINE UP WORKER Notes: (Same as: Zofran) MEDICATION WASTE Product Size: 4 mgProduct Wasted: ___ mg Start Date: 09/19/16 Stop Date: 09/21/16 Status: Discontinued Results ELECTROLYTES Most recent to oldest [Reference Range]: 1 Sodium Lvl [135-145 mEq/L] 139 mEq/L (09/19/16 3:07 PM) Potassium Lvl [3.5-5.1 mEq/L] 3.4 mEq/L *LOW* (09/19/16 3:07 PM) Chloride Lvl [95-109 mEq/L] 98 mEq/L (09/19/16 3:07 PM) CO2 [24-32 mEq/L] 29 mEq/L (09/19/16 3:07 PM) AGAP [10.0-20.0 mEq/L] 15.4 mEq/L (09/19/16 3:07 PM) CHEM PANEL Most recent to oldest [Reference Range]: 1 Creatinine Lvl [0.50-1.40 mg/dL] 1.10 mg/dL (09/19/16 3:07 PM) eGFR 65 mL/min/1.73m2 1 *NA* (09/19/16 3:07 PM) BUN [7-22 mg/dL] 14 mg/dL (09/19/16 3:07 PM) B/C Ratio [6-25] 13 (09/19/16 3:07 PM) Glucose Lvl [70-99 mg/dL] 133 mg/dL *HI* (09/19/16 3:07 PM) Total Protein [6.4-8.4 g/dL] 7.1 g/dL (09/19/16 3:07 PM) Albumin Lvl [3.5-5.0 g/dL] 3.3 g/dL *LOW* (09/19/16 3:07 PM) Globulin [2.7-4.2 g/dL] 3.8 g/dL (09/19/16 3:07 PM) A/G Ratio [0.7-1.6] 0.9 (09/19/16 3:07 PM) Calcium Lvl [8.5-10.5 mg/dL] 9.1 mg/dL (09/19/16 3:07 PM) ALT [0-65 unit/L] 18 unit/L (09/19/16 3:07 PM) AST [0-37 unit/L] 8 unit/L (09/19/16 3:07 PM) Alk Phos [39-136 unit/L] 101 unit/L (09/19/16 3:07 PM) Bili Total [0.2-1.3 mg/dL] 0.2 mg/dL (09/19/16 3:07 PM) Amylase Lvl [25-115 unit/L] 95 unit/L (09/19/16 3:07 PM) Lipase Lvl [73-393 unit/L] 281 unit/L (09/19/16 3:07 PM) 1Result Comment: The eGFR is calculated [...] eGFR should be multiplied by the estimated BMI.HEMATOLOGY Most recent to oldest [Reference Range]: 1 WBC [3.7-10.4 K/CMM] 27.8 K/CMM *HI* (09/19/16 3:07 PM) RBC [4.20-5.40 M/CMM] 4.10 M/CMM *LOW* (09/19/16 3:07 PM) Hgb [12.0-16.0 g/dL] 9.7 g/dL *LOW* (09/19/16 3:07 PM) Hct [36.0-48.0 %] 30.0 % *LOW* (09/19/16 3:07 PM) MCV [80.0-98.0 fL] 73.3 fL *LOW* (09/19/16 3:07 PM) MCH [27.0-31.0 pg] 23.6 pg *LOW* (09/19/16 3:07 PM) MCHC [32.0-36.0 g/dL] 32.2 g/dL (09/19/16 3:07 PM) RDW [11.5-14.5 %] 17.2 % *HI* (09/19/16 3:07 PM) Platelet [133-450 K/CMM] 396 K/CMM (09/19/16 3:07 PM) MPV [7.4-10.4 fL] 8.1 fL (09/19/16 3:07 PM) Segs [45.0-75.0 %] 81.0 % *HI* (09/19/16 3:07 PM) Bands [0.0-11.0 %] 1.0 % (09/19/16 3:07 PM) Lymphocytes [20.0-40.0 %] 17.0 % *LOW* (09/19/16 3:07 PM) Monocytes [2.0-12.0 %] 1.0 % *LOW* (09/19/16 3:07 PM) Eosinophils [0.0-4.0 %] 0.0 % (09/19/16 3:07 PM) Basophils [0.0-1.0 %] 0.0 % (09/19/16 3:07 PM) Segs-Bands # [1.5-8.1 K/CMM] 22.8 K/CMM *HI* (09/19/16 3:07 PM) Lymphocytes # [1.0-5.5 K/CMM] 4.7 K/CMM (09/19/16 3:07 PM) Monocytes # [0.0-0.8 K/CMM] 0.3 K/CMM (09/19/16 3:07 PM) Eosinophils # [0.0-0.5 K/CMM] 0.0 K/CMM (09/19/16 3:07 PM) Basophils # [0.0-0.2 K/CMM] 0.0 K/CMM (09/19/16 3:07 PM) Microcyte [None Seen] 2+ *ABN* (09/19/16 3:07 PM) Target Cell Slight *NA* (09/19/16 3:07 PM) Plt Morph Normal (09/19/16 3:07 PM) PT [12.0-14.7 seconds] 14.2 seconds (09/19/16 3:07 PM) INR [0.85-1.17] 1.08 (09/19/16 3:07 PM) PTT [22.9-35.8 seconds] 20.8 seconds *LOW* (09/19/16 3:07 PM) Immunizations No data available for this [...]
--- OUTSIDE RECORDS SUMMARY | 2018-10-23 12:19 | XMS REPORT | Summary of Care ---
:1960 Author Organization [facility] Address [address] [place] [id number]- Encounter HQ Sivanr_devon(FIN) [id number] Date(s): 04/12/17 - 04/14/[address] [address]- Discharge Disposition: Home or Self Care Attending Physician: Connie Jauregui MD Vital Signs Most recent to oldest 1 2 3 [Reference Range]: Height 157.48 cm (04/12/17 3:30 PM) Temperature Oral [96.4-99.1 97.8 DegF 98.0 DegF 97.9 DegF DegF] (04/14/17 1:46 PM) (04/14/17 8:24 AM) (04/14/17 4:58 AM) Blood Pressure [90-140/60-90 141/85 mmHg 113/75 mmHg 124/79 mmHg mmHg] *HI* (04/14/17 8:24 AM) (04/14/17 4:58 AM) (04/14/17 1:46 PM) Respiratory Rate [14-20 BRMIN] 18 BRMIN 18 BRMIN 18 BRMIN (04/14/17 1:46 PM) (04/14/17 8:24 AM) (04/14/17 4:58 AM) Peripheral Pulse Rate [60-100 84 bpm 92 bpm 88 bpm bpm] (04/14/17 1:46 PM) (04/14/17 8:24 AM) (04/14/17 4:58 AM) Weight 91.364 kg (04/12/17 3:30 PM) Body Mass Index 36.84 m2 (04/12/17 3:30 PM) Problem List Condition Effective Dates Status [...] Medications ALPRAZOLam 0.25 mg oral tablet 0.25 mg, 1 tab, Route: PO, Drug form: TAB, Bedtime, Dosing Weight 91.364, kg, Start date: 04/13/17 21:00:00 CDT, Duration: 30 day, Stop date: 05/12/17 21:00: 00 CDT Notes: With food or milk(Same as: Xanax) Start Date: 04/13/17 Stop Date: 04/13/17 Status: CanceledALPRAZOLam 0.25 mg oral tablet 0.25 mg, 1 tab, Route: PO, Drug form: TAB, Bedtime, Dosing Weight 91.364, kg, Start date: 04/13/17 21:00:00 CDT, Duration: 30 day, Stop date: 05/12/17 21:00: 00 CDT Notes: With food or milk(Same as: Xanax) Start Date: 04/13/17 Stop Date: 04/14/17 Status: DiscontinuedAmitiza 24 microgram, 1 cap, Route: PO, Drug form: CAP, BID, Dosing Weight 91.364, kg, Start date: 04/14/17 9:00:00 CDT, Duration: 30 day, Stop date: 05/13/17 17:00: 00 CDT Notes: Same as Amitiza (Do Not Crush) Non Formulary Start Date: 04/14/17 Stop Date: 04/13/17 Status: CanceledAmitiza 24 microgram, 1 cap, Route: PO, Drug form: CAP, BID, Dosing Weight 91.364, kg, Start date: 04/14/17 9:00:00 CDT, Duration: 30 day, Stop date: 05/13/17 17:00: 00 CDT Notes: Same as Amitiza (Do Not Crush) Non Formulary Start Date: 04/14/17 Stop Date: 04/14/17 Status: DiscontinuedAmitiza 24 mcg oral capsule 24 microgram=1 cap, PO, BID, 0 Refill(s) Start Date: 04/12/17 Status: Orderedamitriptyline 100 mg, 1 tab, Route: PO, Drug form: TAB, Bedtime, Dosing Weight 91.364, kg, Start date: 04/13/17 21:00:00 CDT, Duration: 30 day, Stop date: 05/12/17 21:00: 00 CDT Notes: (Same as: Elavil) Start Date: 04/13/17 Stop Date: 04/13/17 Status: Canceledamitriptyline 100 mg, 1 tab, Route: PO, Drug form: TAB, Bedtime, Dosing Weight 91.364, kg, Start date: 04/13/17 21:00:00 CDT, Duration: 30 day, Stop date: 05/12/17 21:00: 00 CDT Notes: (Same as: Elavil) Start Date: 04/13/17 Stop Date: 04/14/17 Status: Discontinuedcarvedilol 6.25 mg, 1 tab, Route: PO, Drug form: TAB, BID, Dosing Weight 91.364, kg, Start date: 04/14/17 9:00:00 CDT, Duration: 30 day, Stop date: 05/13/17 17:00:00 CDT Notes: Give with food. (Same As: Coreg) Start Date: 04/14/17 Stop Date: 04/13/17 Status: Canceledcarvedilol 6.25 mg, 1 tab, Route: PO, Drug form: TAB, BID, Dosing Weight 91.364, kg, Start date: 04/14/17 9:00:00 CDT, Duration: 30 day, Stop date: 05/13/17 17:00:00 CDT Notes: Give with food. (Same As: Coreg) Start Date: 04/14/17 Stop Date: 04/14/17 Status: Discontinuedcarvedilol 6.25 mg oral tablet 6.25 mg=1 tab, PO, BID, 0 Refill(s) Start Date: 04/12/17 Status: OrderedCombivent Respimat CFC free 100 mcg-20 mcg/inh inhalation aerosol 2 puff, Route: INHALATION, Drug Form: AERO, Dosing Weight 91.364, kg, QID, Start date: 04/13/17 21:00:00 CDT, Duration: 30 day, Stop date: 05/13/17 17:00: 00 CDT Notes: Same as: Combivent RespimatWASTE: Aerosol - Return to Pharmacy Start Date: 04/13/17 Stop Date: 04/14/17 Status: DiscontinuedCombivent Respimat CFC free 100 mcg-20 mcg/inh inhalation aerosol 2 puff, Route: INHALATION, Drug Form: AERO, Dosing Weight 91.364, kg, QID, Start date: 04/13/17 21:00:00 CDT, Duration: 30 day, Stop date: 05/13/17 17:00: 00 CDT Notes: Same as: Combivent RespimatWASTE: Aerosol - Return to Pharmacy Start Date: 04/13/17 Stop Date: 04/13/17 Status: CanceledCreon 24,000 units oral delayed release capsule 3 cap, Route: PO, Drug Form: DRC, Dosing Weight 91.364, kg, QID-Before Meals, Start date: 04/13/17 21:00:00 CDT, Duration: 30 day, Stop date: 05/13/17 16:30: 00 CDT Notes: Same as: Bev RAMIREZ 24 : lipase 24,000 units, protease 76,000 units, amylase 120,000 units Start Date: 04/13/17 Stop Date: 04/13/17 Status: CanceledCreon 24,000 units oral delayed release capsule 3 cap, PO, QID-Before Meals, and at bedtime, 0 Refill(s) Start Date: 04/12/17 Status: OrderedCreon 24,000 units oral delayed release capsule 3 cap, Route: PO, Drug Form: DRC, Dosing Weight 91.364, kg, QID-Before Meals, Start date: 04/13/17 21:00:00 CDT, Duration: 30 day, Stop date: 05/13/17 16:30: 00 CDT Notes: Same as: Crehiren PALAFOXC 24 : lipase 24,000 units, protease 76,000 units, amylase 120,000 units Start Date: 04/13/17 Stop Date: 04/14/17 Status: Discontinuedesomeprazole 40 mg, Route: PO, Drug form: ECCAP, Daily, Dosing Weight 91.364, kg, Start date : 04/14/17 9:00:00 CDT, Duration: 30 day, Stop date: 05/13/17 9:00:00 CDT Start Date: 04/14/17 Stop Date: 04/13/17 Status: Deletedesomeprazole 40 mg, Route: PO, Drug form: ECCAP, Daily, Dosing Weight 91.364, kg, Start date : 04/14/17 9:00:00 CDT, Duration: 30 day, Stop date: 05/13/17 9:00:00 CDT Start Date: 04/14/17 Stop Date: 04/13/17 Status: Deletedesomeprazole 20 mg oral delayed release capsule 40 mg=2 cap, PO, Daily, 0 Refill(s) Start Date: 04/13/17 Status: Orderedgabapentin 100 mg oral capsule 200 mg, 2 cap, Route: PO, Drug form: CAP, BID, Dosing Weight 91.364, kg, Start date: 04/14/17 9:00:00 CDT, Duration: 30 day, Stop date: 05/13/17 17:00:00 CDT Notes: (Same as: Neurontin) Start Date: 04/14/17 Stop Date: 04/13/17 Status: Canceledgabapentin 100 mg oral capsule 200 mg, 2 cap, Route: PO, Drug form: CAP, BID, Dosing Weight 91.364, kg, Start date: 04/14/17 9:00:00 CDT, Duration: 30 day, Stop date: 05/13/17 17:00:00 CDT Notes: (Same as: Neurontin) Start Date: 04/14/17 Stop Date: 04/14/17 Status: Discontinuedgabapentin 100 mg oral capsule 200 mg=2 cap, PO, BID, 0 Refill(s) Start Date: 04/12/17 Status: OrderedhydrOXYzine hydrochloride 25 mg oral tablet 25 mg, 1 tab, Route: PO, Drug form: TAB, TID, Dosing Weight 91.364, kg, PRN Itching, Start date: 04/13/17 17:13:00 CDT, Duration: 30 day, Stop date: 17:12:00 CDT Notes: (Same as: Atarax) Avoid alcohol. Start Date: 04/13/17 Stop Date: 04/13/17 Status: DiscontinuedhydrOXYzine hydrochloride 25 mg oral tablet 25 mg, 1 tab, Route: PO, Drug form: TAB, TID, Dosing Weight 91.364, kg, PRN Itching, Start date: 04/13/17 19:13:00 CDT, Duration: 30 day, Stop date: 19:12:00 CDT Notes: (Same as: Atarax) Avoid alcohol. Start Date: 04/13/17 Stop Date: 04/14/17 Status: Discontinuedlosartan 100 mg, 2 tab, Route: PO, Drug form: TAB, Daily, Dosing Weight 91.364, kg, Start date: 04/14/17 9:00:00 CDT, Duration: 30 day, Stop date: 05/13/17 9:00:00 CDT Notes: (Same as: Pete) Start Date: 04/14/17 Stop Date: 04/13/17 Status: Canceledlosartan 100 mg, 2 tab, Route: PO, Drug form: TAB, Daily, Dosing Weight 91.364, kg, Start date: 04/14/17 9:00:00 CDT, Duration: 30 day, Stop date: 05/13/17 9:00:00 CDT Notes: (Same as: Pete) Start Date: 04/14/17 Stop Date: 04/14/17 Status: Discontinuedmeclizine 12.5 mg, 1 tab, Route: PO, Drug form: TAB, PRN, Dosing Weight 91.364, kg, PRN as needed for dizziness, Start date: 04/13/17 17:13:00 CDT, Duration: 30 day, Stop date: 05/13/17 17:12:00 CDT Notes: (Same as: Antivert) Start Date: 04/13/17 Stop Date: 04/13/17 Status: Discontinuedmeclizine 12.5 mg, 1 tab, Route: PO, Drug form: TAB, PRN, Dosing Weight 91.364, kg, PRN as needed for nausea/vomiting, Start date: 04/13/17 19:14:00 CDT, Duration: 30 day, Stop date: 05/13/17 19:13:00 CDT Notes: (Same as: Antivert) Start Date: 04/13/17 Stop Date: 04/14/17 Status: Discontinuedmethocarbamol 750 mg, 1 tab, Route: PO, Drug form: TAB, Q8H, Dosing Weight 91.364, kg, PRN Pain Score 4-6, Start date: 04/13/17 17:14:00 CDT, Duration: 30 day, Stop date: 05/13/17 17:13:00 CDT Notes: (Same as:Robaxin) Start Date: 04/13/17 Stop Date: 04/13/17 Status: Discontinuedmethocarbamol 750 mg, 1 tab, Route: PO, Drug form: TAB, Q8H, Dosing Weight 91.364, kg, PRN Pain Score 4-6, Start date: 04/13/17 19:14:00 CDT, Duration: 30 day, Stop date: 05/13/17 19:13:00 CDT Notes: (Same as:Robaxin) Start Date: 04/13/17 Stop Date: 04/14/17 Status: Discontinuedmetoclopramide 10 mg oral tablet 10 mg, 1 tab, Route: PO, Drug form: TAB, [id number], Dosing Weight 91.364, kg, Start date: 04/13/17 18:00:00 CDT, Duration: 30 day, Stop date: 05/13/17 6:00: 00 CDT Notes: (Same as: Reglan) Take 30 min before meals Start Date: 04/13/17 Stop Date: 04/13/17 Status: Discontinuedmetoclopramide 10 mg oral tablet 10 mg, 1 tab, Route: PO, Drug form: TAB, [id number], Dosing Weight 91.364, kg, Start date: 04/13/17 20:00:00 CDT, Duration: 30 day, Stop date: 05/13/17 8:00: 00 CDT Notes: (Same as: Reglan) Take 30 min before meals Start Date: 04/13/17 Stop Date: 04/14/17 Status: Discontinuedmetolazone 5 mg oral tablet 5 mg, 2 tab, Route: PO, Drug form: TAB, QAM, Dosing Weight 91.364, kg, Start date: 04/14/17 9:00:00 CDT, Duration: 30 day, Stop date: 05/13/17 9:00:00 CDT Notes: (Same as: Zaroxolyn) Start Date: 04/14/17 Stop Date: 04/13/17 Status: Canceledmetolazone 5 mg oral tablet 5 mg=1 tab, PO, QAM, 0 Refill(s) Start Date: 04/12/17 Stop Date: 04/14/17 Status: Discontinuedmetolazone 5 mg oral tablet 5 mg, 2 tab, Route: PO, Drug form: TAB, QAM, Dosing Weight 91.364, kg, Start date: 04/14/17 9:00:00 CDT, Duration: 30 day, Stop date: 05/13/17 9:00:00 CDT Notes: (Same as: Zaroxolyn) Start Date: 04/14/17 Stop Date: 04/14/17 Status: Discontinuedmontelukast 10 mg, 1 tab, Route: PO, Drug form: TAB, Daily, Dosing Weight 91.364, kg, Start date: 04/14/17 9:00:00 CDT, Duration: 30 day, Stop date: 05/13/17 9:00:00 CDT Notes: (Same as:Singulair) Start Date: 04/14/17 Stop Date: 04/13/17 Status: Canceledmontelukast 10 mg, 1 tab, Route: PO, Drug form: TAB, Daily, Dosing Weight 91.364, kg, Start date: 04/14/17 9:00:00 CDT, Duration: 30 day, Stop date: 05/13/17 9:00:00 CDT Notes: (Same as:Singulair) Start Date: 04/14/17 Stop Date: 04/14/17 Status: DiscontinuedMucinex 600 mg, 1 tab, Route: PO, Drug form: ERTAB, Q12H, Dosing Weight 91.364, kg, Start date: 04/12/17 21:00:00 CDT, Duration: 30 day, Stop date: 05/12/17 9:00: 00 CDT Notes: (Same as: Guaifenesin LA, Humibid LA, Mucinex)"Do Not Crush" Take medication with plenty of water. Start Date: 04/12/17 Stop Date: 04/13/17 Status: Discontinuedondansetron 4 mg, 1 tab, Route: PO, Drug form: TAB, Q8H, Dosing Weight 91.364, kg, Start date: 04/14/17 0:00:00 CDT, Duration: 30 day, Stop date: 05/13/17 16:00:00 CDT Notes: (Same as: Zofran) Start Date: 04/14/17 Stop Date: 04/13/17 Status: Canceledondansetron 4 mg, 1 tab, Route: PO, Drug form: TAB, Q8H, Dosing Weight 91.364, kg, Start date: 04/14/17 0:00:00 CDT, Duration: 30 day, Stop date: 05/13/17 16:00:00 CDT Notes: (Same as: Zofran) Start Date: 04/14/17 Stop Date: 04/14/17 Status: DiscontinuedProtonix 40 mg, 1 tab, Route: PO, Drug form: ECTAB, Before Dinner, Start date: 04/14/17 16:30:00 CDT, Duration: 30 day, Stop date: 05/13/17 16:30:00 CDT Notes: Tablet should not be chewed or crushed.(Same as: Protonix) Start Date: 04/14/17 Stop Date: 04/14/17 Status: DiscontinuedProtonix 40 mg, 1 tab, Route: PO, Drug form: ECTAB, Before Dinner, Start date: 04/14/17 16:30:00 CDT, Duration: 30 day, Stop date: 05/13/17 16:30:00 CDT Notes: Tablet should not be chewed or crushed.(Same as: Protonix) Start Date: 04/14/17 Stop Date: 04/13/17 Status: Canceledsucralfate 1 gm, 1 tab, Route: PO, Drug form: TAB, QID-Before Meals, Dosing Weight 91.364, kg, Start date: 04/13/17 21:00:00 CDT, Duration: 30 day, Stop date: 05/13/17 16: 30:00 CDT Notes: May interfere w/enteral feeds - Take 1 hr before or 2 hr after antacids , dairy pdt, meals & minerals - On empty stomach.For patients unable to swallow tablet, dissolve in 10mL - 30mL of water or juice and stir before giving. (Same As: Carafate) Start Date: 04/13/17 Stop Date: 04/13/17 Status: Canceledsucralfate 1 gm, 1 tab, Route: PO, Drug form: TAB, QID-Before Meals, Dosing Weight 91.364, kg, Start date: 04/13/17 21:00:00 CDT, Duration: 30 day, Stop date: 05/13/17 16: 30:00 CDT Notes: May interfere w/enteral feeds - Take 1 hr before or 2 hr after antacids , dairy pdt, meals & minerals - On empty stomach.For patients unable to swallow tablet, dissolve in 10mL - 30mL of water or juice and stir before giving. (Same As: Carafate) Start Date: 04/13/17 Stop Date: 04/14/17 Status: DiscontinuedTylenol 650 mg, 2 tab, Route: PO, Drug form: TAB, Q4H, Dosing Weight 85.909, kg, PRN Pain 1-3/Temp > 100.4 F, Start date: 04/12/17 15:31:00 CDT, Duration: 30 day, Stop date: 05/12/17 15:30:00 CDT Notes: Do not exceed 4 gm/day. (Same as: Tylenol) Start Date: 04/12/17 Stop Date: 04/13/17 Status: Discontinued Results ELECTROLYTES Most recent to oldest [Reference Range]: 1 2 Sodium Lvl [135-145 mEq/L] 135 mEq/L 134 mEq/L (04/13/17 6:05 AM) *LOW* (04/12/17 12:19 PM) Potassium Lvl [3.5-5.1 mEq/L] 3.8 mEq/L 3.9 mEq/L (04/13/17 6:05 AM) (04/12/17 12:19 PM) Chloride Lvl [95-109 mEq/L] 99 mEq/L 100 mEq/L (04/13/17 6:05 AM) (04/12/17 12:19 PM) CO2 [24-32 mEq/L] 29 mEq/L 25 mEq/L (04/13/17 6:05 AM) (04/12/17 12:19 PM) AGAP [10.0-20.0 mEq/L] 10.8 mEq/L 12.9 mEq/L (04/13/17 6:05 AM) (04/12/17 12:19 PM) CHEM PANEL Most recent to oldest [Reference Range]: 1 2 Creatinine Lvl [0.50-1.40 mg/dL] 0.80 mg/dL 0.90 mg/dL (04/13/17 6:05 AM) (04/12/17 12:19 PM) eGFR 95 mL/min/1.73m2 1 83 mL/min/1.73m2 2 *NA* *NA* (04/13/17 6:05 AM) (04/12/17 12:19 PM) BUN [7-22 mg/dL] 12 mg/dL 12 mg/dL (04/13/17 6:05 AM) (04/12/17 12:19 PM) Glucose Lvl [70-99 mg/dL] 109 mg/dL 94 mg/dL *HI* (04/12/17 12:19 PM) (04/13/17 6:05 AM) Calcium Lvl [8.5-10.5 mg/dL] 9.0 mg/dL 8.8 mg/dL (04/13/17 6:05 AM) (04/12/17 12:19 PM) 1Result Comment: The eGFR is calculated [...] Range]: 1 2 Total CK [12-191 unit/L] 97 unit/L (04/12/17 12:19 PM) CK MB [0.5-3.6 ng/mL] <0.5 ng/mL (04/12/17 12:19 PM) Troponin-I [0.00-0.40 ng/mL] <0.02 ng/mL (04/12/17 12:19 PM) BNP [<=100 pg/mL] 13 pg/mL 9 pg/mL (04/13/17 6:05 AM) (04/12/17 6:52 PM) URINE AND STOOL Most recent to oldest [Reference Range]: 1 2 UA Turbidity [Clear] Slight *ABN* (04/12/17 1:37 PM) UA Color Ltyellow *NA* (04/12/17 1:37 PM) UA pH [5.0-8.0] 7.0 (04/12/17 1:37 PM) UA Spec Grav [<=1.030] 1.006 (04/12/17 1:37 PM) UA Glucose [Negative mg/dL] Negative mg/dL *NA* (04/12/17 1:37 PM) UA Blood [Negative] Negative (04/12/17 1:37 PM) UA Ketones [Negative mg/dL] Negative mg/dL *NA* (04/12/17 1:37 PM) UA Protein [Negative mg/dL] Negative mg/dL (04/12/17 1:37 PM) UA Urobilinogen [0.1-1.0 mg/dL] <=1.0 mg/dL *NA* (04/12/17 1:37 PM) UA Bili [Negative] Negative *NA* (04/12/17 1:37 PM) UA Leuk Est [Negative] Negative (04/12/17 1:37 PM) UA Nitrite [Negative] Negative (04/12/17 1:37 PM) Micro? Performed *NA* (04/12/17 1:37 PM) HEMATOLOGY Most recent to oldest [Reference Range]: 1 2 WBC [3.7-10.4 K/CMM] 19.3 K/CMM *HI* (04/12/17 6:52 PM) RBC [4.20-5.40 M/CMM] 4.44 M/CMM (04/12/17 6:52 PM) Hgb [12.0-16.0 g/dL] 10.6 g/dL *LOW* (04/12/17 6:52 PM) Hct [36.0-48.0 %] 32.7 % *LOW* (04/12/17 6:52 PM) MCV [80.0-98.0 fL] 73.8 fL *LOW* (04/12/17 6:52 PM) MCH [27.0-31.0 pg] 23.8 pg *LOW* (04/12/17 6:52 PM) MCHC [32.0-36.0 g/dL] 32.3 g/dL (04/12/17 6:52 PM) RDW [11.5-14.5 %] 15.6 % *HI* (04/12/17 6:52 PM) Platelet [133-450 K/CMM] 350 K/CMM (04/12/17 6:52 PM) MPV [7.4-10.4 fL] 8.8 fL (04/12/17 6:52 PM) Segs [45.0-75.0 %] 64.1 % (04/12/17 6:52 PM) Lymphocytes [20.0-40.0 %] 25.7 % (04/12/17 6:52 PM) Monocytes [2.0-12.0 %] 8.4 % (04/12/17 6:52 PM) Eosinophils [0.0-4.0 %] 1.2 % (04/12/17 6:52 PM) Basophils [0.0-1.0 %] 0.6 % (04/12/17 6:52 PM) Segs-Bands # [1.5-8.1 K/CMM] 12.4 K/CMM *HI* (04/12/17 6:52 PM) Lymphocytes # [1.0-5.5 K/CMM] 5.0 K/CMM (04/12/17 6:52 PM) Monocytes # [0.0-0.8 K/CMM] 1.6 K/CMM *HI* (04/12/17 6:52 PM) Eosinophils # [0.0-0.5 K/CMM] 0.2 K/CMM (04/12/17 6:52 PM) Basophils # [0.0-0.2 K/CMM] 0.1 K/CMM (04/12/17 6:52 PM) Microcyte [None Seen] 2+ *ABN* (04/12/17 6:52 PM) Immunizations No data available for this [...]
--- OUTSIDE RECORDS SUMMARY | 2018-10-23 12:19 | XMS REPORT | Summary of Care ---
:1960 Author Organization [facility] Address [address] [place] [id number]- Encounter HQ Isaac(FIN) [id number] Date(s): 12/18/16 - 12/18/16 [facility] [address] [place] [address]- [phone] Discharge Disposition: Home or Self Care Attending [...]
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
[2018-10-23 12:32] LABS: ALT/SGPT 26 U/L (12-78); AST/SGOT 20 U/L (15-37); Albumin 3.3 g/dL (3.4-5.0); Alkaline Phosphatase 112 U/L (45-117); BUN Blood Urea Nitrogen 12 mg/dL (7-18); Bicarbonate 31 mmol/L (21-32); Bilirubin Direct < 0.1 mg/dL (0-0.2); Bilirubin Total 0.2 mg/dL (0.2-1.0); Glucose Level 147 mg/dL (74-106); Lipase 290 U/L (73-393); Magnesium 2.2 mg/dL (1.8-2.4); NT PRO-BNP 87 pg/mL (<125); Potassium 3.6 mmol/L (3.5-5.1); Protein, Total 7.3 g/dL (6.4-8.2); Sodium Level 139 mmol/L (136-145); Troponin (Emerg Dept Use Only) < 0.02 ng/mL (0.0-0.045)
[2018-10-23 12:58] LABS: Urine Blood NEGATIVE (NEG); Urine Glucose NEGATIVE (NEG); Urine Protein NEGATIVE (NEG)
--- NOTE | 2018-10-23 13:23 | RAD REPORT ---
EXAM DESCRIPTION: CT - Abdomen Pelvis W Contrast - 10/23/2018 1:09 pm CLINICAL HISTORY: Chest pain, abdominal pain history of CVA, history of CT, history of hysterectomy and cholecystectomy COMPARISON: CT study February 2018 TECHNIQUE: Axial [address] imaging of the abdomen and pelvis was performed following bolus non-ionic I V contrast. Limited IV access precluded a biphasic technique. No oral contrast administered. All CT scans are performed using dose optimization technique as appropriate and may include automated exposure control or mA/KV adjustment according to patient size. FINDINGS: Atelectasis changes are present with no acute lung base finding. No pericardial effusion o r thickening The liver, spleen, and pancreas show no suspicious findings. Gallbladder is absent. No biliary tree d ilatation. Symmetric renal function is seen with no hydronephrosis or suspicious renal mass. No pyelonephritis o r acute parenchymal process. No bladder abnormalities. No adrenal abnormality seen. Uterus is absent. Ovaries are absent or atrophic. There is motion degradation along the pelvic floor. [place] of the stomach in the body and antrum portions are mildly prominent. Peristalsis can accentuate wall thickness. No mass lesions seen. There is no abnormal fluid retention in the stomach. No dilate d large or small bowel. No focal mass lesion of the GI tract. No free air, free fluid or inflammator y stranding. No hernia, mass or bulky lymphadenopathy. No suspicious bony findings. IMPRESSION: Contrast enhanced CT abdomen and pelvis showing no significant or suspicious finding. [place] of the body and antrum of the stomach are mildly prominent but not definitive for an acute proc ess.
[2018-10-23] MEDS ORDERED: DIAZEPAM 10 MG/2 ML INJ SYRINGE ONE (15:02)
--- NOTE | 2018-10-23 15:30 | ER ---
Nurse's Notes [facility] Name: Leila Stein Age: 57 yrs Sex: Female : 1960 Arrival Date: 10/23/2018 Time: 11:02 Bed 3 Private MD: out of town, doctor Diagnosis: Chest pain, unspecified;Generalized abdominal pain Presentation: 10/23 11:12 Presenting complaint: Patient states: Chest pains, abdominal pains, feels like someone ch is sitting on my chest, syncopal episodes, vomiting, all started around 2200 yesterday. I was seen at [facility] but the didn't do anything,they treated me like a drug addict so I left. HX of CT, CVA. Transition of care: patient was not received from another setting of care. Onset of symptoms was October 22, 2018 at 22:00. Risk Assessment: Do you want to hurt yourself or someone else? Patient reports no desire to harm self or others. Initial Sepsis Screen: Does the patient meet any 2 criteria? No. Patient's initial sepsis screen is negative. Does the patient have a suspected source of infection? No. Patient's initial sepsis screen is negative. Care prior to arrival: None. pt went responsive to pain only in room when trying to move from wheelchair to bed. pt was resistant to movement but did not respond. 11:12 Method Of Arrival: Wheelchair ch 11:12 Acuity: JARROD 2 ch Historical: - Allergies: 11:17 Diphenhydramine; ch 11:17 Ibuprofen; ch 11:17 Kenalog; ch 11:17 levabid; ch 11:17 Levaquin; ch 11:17 Naloxone; ch 11:17 Norepinephrine Bitartrate; ch 11:17 Penbutolol; ch 11:17 PENICILLINS; ch 11:17 PENTAZOCINE; ch 11:17 Talwin; ch 11:17 Tape; ch 11:17 Triamcinolone Acetonide; ch 11:17 Demerol; ch - Home Meds: 11:17 losartan 100 mg Oral tab 1 tab once daily [Active]; ch - PMHx: 11:17 CHF; Hypertension; Pancreatitis; Myocardial infarction; CVA; ch - PSHx: 11:17 Hysterectomy; brain surgery; Cholecystectomy; neck; ch - Immunization history:: Adult Immunizations up to date. - Social history:: Smoking status: Patient/guardian denies using tobacco, Patient/guardian denies using alcohol, street drugs. - Ebola Screening: : Patient negative for fever greater than or equal to 101.5 degrees Fahrenheit, and additional compatible Ebola Virus Disease symptoms Patient denies exposure to infectious person Patient denies travel to an Ebola-affected area in the 21 days before illness onset No symptoms or risks identified at this time. Screenin:50 Abuse screen: Denies threats or abuse. Nutritional screening: No deficits noted. tw2 Tuberculosis screening: No symptoms or risk factors identified. Fall Risk None identified. Assessment: 11:30 General: Appears in no apparent distress. uncomfortable, Behavior is cooperative, jl7 anxious. Pain: Complains of pain in anterior aspect of left upper chest Pain does not radiate. Pain currently is 10 out of 10 on a pain scale. Quality of pain is described as pressure, Pain began years ago. Is continuous. Neuro: Level of Consciousness is awake, alert, obeys commands, Oriented to person, place, time, situation. Cardiovascular: Heart tones S1 S2 present Patient's skin is warm and dry. Rhythm is sinus rhythm. Respiratory: Airway is patent Respiratory effort is even, unlabored, Respiratory pattern is regular, symmetrical, Breath sounds are clear bilaterally. GI: No signs and/or symptoms were reported involving the gastrointestinal system. : No signs and/or symptoms were reported regarding the genitourinary system. EENT: No signs and/or symptoms were reported regarding the EENT system. Derm: Skin is pink, warm \T\ dry. 15:50 Reassessment: Patient appears in no apparent distress at this time. Patient and/or tw2 family updated on plan of care and expected duration. Pain level reassessed. Patient is alert, oriented x 3, equal unlabored respirations, skin warm/dry/pink. Patient states feeling better. Patient states symptoms have improved. Vital Signs: 11:17 BP 174 / 89; Pulse 90; Resp 14; Temp 98.2; Pulse Ox 98% on R/A; Weight 77.11 kg; Height ch 5 ft. 6 in. (167.64 cm); Pain 10/10; 12:00 BP 136 / 71; Pulse 93; Resp 17; Pulse Ox 99% on R/A; dh3 12:30 BP 121 / 73; Pulse 86; Resp 16; Pulse Ox 96% on R/A; dh3 14:45 BP 127 / 92; Pulse 87; Resp 16 S; Pulse Ox 99% on R/A; jl7 11:17 Body Mass Index 27.44 (77.11 kg, 167.64 cm) ED Course: 11:02 Patient arrived in ED. sb2 11:03 out of town, doctor is Private Physician. sb2 11:10 Kalli Garcia FNP-C is [facility]. snw 11:10 Flavio Mcgill MD is Attending Physician. snw 11:14 Triage completed. 11:14 Iliana Xavier, AMAURY is Primary Nurse. jl7 11:17 Arm band placed on left wrist. Patient placed in an exam room, on a stretcher, on youth nutritional monitor, on pulse oximetry. 11:30 X-ray completed. Portable x-ray completed in exam room. Patient tolerated procedure ka well. 11:31 XRAY Chest (1 view) In Process Unspecified. EDMS 11:42 EKG done, by drug abuse technician. reviewed by Kalli BRAMBILA. at1 11:52 Inserted saline lock: 20 gauge in right EJ, using aseptic technique. Blood collected. aj 12:22 Notified Nurse Practitioner and/or Physician Digital Marketing Officer of a critical lab result(s), sg elevated WBC. 13:09 CT Abd/Pelvis - W/Contrast In Process Unspecified. EDMS Administered Medications: Discontinued: NS 0.9% 1000 ml IV at 75 ml/hr continuous 11:40 Drug: NS 0.9% 1000 ml Route: IV; Rate: 75 ml/hr; Site: right jugular; jl7 15:06 Follow up: IV Status: Completed infusion jl7 12:00 Drug: Ativan 1 mg Route: IVP; Site: right jugular; jl7 12:30 Follow up: Response: No adverse reaction; Marked relief of symptoms jl7 12:04 Drug: Phenergan 6.25 mg Route: IVP; Site: right jugular; jl7 12:30 Follow up: Response: No adverse reaction; Nausea is decreased jl7 14:50 Drug: NS 0.9% 1000 ml Route: IV; Rate: 125 ml/hr; Site: right jugular; jl7 14:58 Drug: Valium 5 mg Route: IVP; Site: right jugular; jl7 15:08 Follow up: Response: No adverse reaction; Marked relief of symptoms [facility] 15:21 Drug: Phenergan 6.25 mg Route: IVP; Site: right jugular; [facility] Outcome: 15:29 Discharge ordered by MD. langley 15:51 Patient left the ED. tw2 Signatures: Dispatcher [employer] EDMS Cynthia Best, Ghulam Alfaro RN, ch, RN RN sg Myers, Amanda, RN RN aj Therrien, Shelly, DESCRIPTIVE CATALOG LIBRARIAN-C DESCRIPTIVE CATALOG LIBRARIAN-Csnw Alexandria Newman, vaccine specialist EKG Tat1 Kim Garcia Tara, RN RN tw2 Iliana Xavier RN RN jl7 Marie Smith 3 Cynthia Cota 2
--- NOTE | 2018-10-23 15:30 | EDPHYS ---
Physician Documentation [facility] Name: Leila Stein Age: 57 yrs Sex: Female : 1960 Arrival Date: 10/23/2018 Time: 11:02 Bed 3 Private MD: out of town, doctor ED Physician Flavio Mcgill HPI: 10/23 11:40 This 57 yrs old Black Female presents to ER via Wheelchair with complaints of Chest snw Pain. 11:40 This 57 yrs old Black Female presents to ER via Wheelchair with complaints of Abd Pain. snw 11:40 The patient presents with abdominal pain in the upper abdomen, in the lower abdomen. snw Onset: The symptoms/episode began/occurred suddenly, 2 day(s) ago, and became persistent. The symptoms do not radiate. Associated signs and symptoms: Pertinent positives: vomiting. The symptoms are described as crampy, shooting, stabbing, vague. Severity of pain: At its worst the pain was moderate severe incapacitating. It is unknown whether or not the patient has had similar symptoms in the past. seen at another facility ED yest. No meds given.. Historical: - Allergies: 11:17 Diphenhydramine; ch 11:17 Ibuprofen; ch 11:17 Kenalog; ch 11:17 levabid; ch 11:17 Levaquin; ch 11:17 Naloxone; ch 11:17 Norepinephrine Bitartrate; ch 11:17 Penbutolol; ch 11:17 PENICILLINS; ch 11:17 PENTAZOCINE; ch 11:17 Talwin; ch 11:17 Tape; ch 11:17 Triamcinolone Acetonide; ch 11:17 Demerol; ch - Home Meds: 11:17 losartan 100 mg Oral tab 1 tab once daily [Active]; ch - PMHx: 11:17 CHF; Hypertension; Pancreatitis; Myocardial infarction; CVA; ch - PSHx: 11:17 Hysterectomy; brain surgery; Cholecystectomy; neck; ch - Immunization history:: Adult Immunizations up to date. - Social history:: Smoking status: Patient/guardian denies using tobacco, Patient/guardian denies using alcohol, street drugs. - Ebola Screening: : Patient negative for fever greater than or equal to 101.5 degrees Fahrenheit, and additional compatible Ebola Virus Disease symptoms Patient denies exposure to infectious person Patient denies travel to an Ebola-affected area in the 21 days before illness onset No symptoms or risks identified at this time. ROS: 11:40 Constitutional: Negative for fever, chills, and weight loss, Eyes: Negative for injury, snw pain, redness, and discharge, ENT: Negative for injury, pain, and discharge, Neck: Negative for injury, pain, and swelling, Cardiovascular: Negative for chest pain, palpitations, and edema, Respiratory: Negative for shortness of breath, cough, wheezing, and pleuritic chest pain, Back: Negative for injury and pain, : Negative for injury, bleeding, discharge, and swelling, MS/Extremity: Negative for injury and deformity, Skin: Negative for injury, rash, and discoloration, Neuro: Negative for headache, weakness, numbness, tingling, and seizure. 11:40 Abdomen/GI: Positive for abdominal pain, abdominal cramps. Exam: 11:16 Constitutional: This is a well developed, well nourished patient who is awake, alert, snw and in no physical distress. + emotional outburst Head/Face: Normocephalic, atraumatic. Eyes: Pupils equal round and reactive to light, extra-ocular motions intact. Lids and lashes normal. Conjunctiva and sclera are non-icteric and not injected. Cornea within normal limits. Periorbital areas with no swelling, redness, or edema. ENT: Nares patent. No nasal discharge, no septal abnormalities noted. Tympanic membranes are normal and external auditory canals are clear. Oropharynx with no redness, swelling, or masses, exudates, or evidence of obstruction, uvula midline. Mucous membranes moist. Neck: Trachea midline, no thyromegaly or masses palpated, and no cervical lymphadenopathy. Supple, full range of motion without nuchal rigidity, or vertebral point tenderness. No Meningismus. Chest/axilla: Normal chest wall appearance and motion. Nontender with no deformity. No lesions are appreciated. 11:16 Respiratory: Lungs have equal breath sounds bilaterally, clear to auscultation and percussion. No rales, rhonchi or wheezes noted. No increased work of breathing, no retractions or nasal flaring. Back: No spinal tenderness. No costovertebral tenderness. Full range of motion. Skin: Warm, dry with normal turgor. Normal color with no rashes, no lesions, and no evidence of cellulitis. MS/ Extremity: Pulses equal, no cyanosis. Neurovascular intact. Full, normal range of motion. Neuro: Awake and alert, GCS 15, oriented to person, place, time, and situation. Cranial nerves II-XII grossly intact. Motor strength 5/5 in all extremities. Sensory grossly intact. Cerebellar exam normal. Normal gait. 11:16 Cardiovascular: Rate: tachycardic, Rhythm: regular, Pulses: no pulse deficits are appreciated, Heart sounds: normal, Edema: is not appreciated. 11:16 Abdomen/GI: Inspection: abdomen appears normal, Bowel sounds: active, all quadrants, Palpation: mild abdominal tenderness, in all quadrants. Vital Signs: 11:17 BP 174 / 89; Pulse 90; Resp 14; Temp 98.2; Pulse Ox 98% on R/A; Weight 77.11 kg; Height ch 5 ft. 6 in. (167.64 cm); Pain 10/10; 12:00 BP 136 / 71; Pulse 93; Resp 17; Pulse Ox 99% on R/A; dh3 12:30 BP 121 / 73; Pulse 86; Resp 16; Pulse Ox 96% on R/A; dh3 14:45 BP 127 / 92; Pulse 87; Resp 16 S; Pulse Ox 99% on R/A; jl7 11:17 Body Mass Index 27.44 (77.11 kg, 167.64 cm) ch MDM: 11:10 Patient medically screened. snw 11:18 Data reviewed: vital signs, nurses notes. Data interpreted: Pulse oximetry: on room air snw is 99 %. Interpretation: normal. Counseling: I had a detailed discussion with the patient and/or guardian regarding: the historical points, exam findings, and any diagnostic results supporting the discharge/admit diagnosis. ED course: pt with pseudo-syncopal episode with stiffening, rapid blinking, ED RN placed pt on stretcher, monitors applied. Pt thrashed about upon "awakening", c/o abd pain. 10/23 11:12 Order name: Basic Metabolic Panel; Complete Time: 12:35 snw 10/23 11:12 Order name: CBC with Diff; Complete Time: 12:23 snw 10/23 11:12 Order name: LFT's; Complete Time: 12:35 snw 10/23 11:12 Order name: Magnesium; Complete Time: 12:35 snw 10/23 11:12 Order name: NT PRO-BNP; Complete Time: 12:35 snw 10/23 11:12 Order name: PT-INR; Complete Time: 12:22 snw 10/23 11:12 Order name: Troponin (emerg Dept Use Only); Complete Time: 12:35 snw 10/23 11:12 Order name: XRAY Chest (1 view); Complete Time: 11:46 snw 10/23 11:12 Order name: Lipase; Complete Time: 12:35 snw 10/23 12:34 Order name: CT Abd/Pelvis - W/Contrast; Complete Time: 13:24 snw 10/23 12:37 Order name: Urine Dipstick--Ancillary (enter results); Complete Time: 13:24 ag 10/23 14:57 Order name: Troponin (emerg Dept Use Only); Complete Time: 15:28 snw 10/23 11:12 Order name: EKG; Complete Time: 11:13 snw 10/23 11:12 Order name: Cardiac monitoring; Complete Time: 11:25 w 10/23 11:12 Order name: EKG - Nurse/Tech; Complete Time: 11:25 snw 10/23 11:12 Order name: IV Saline Lock; Complete Time: 12:28 w 10/23 11:12 Order name: Labs collected and sent; Complete Time: 12:28 w 10/23 11:12 Order name: O2 Per Protocol; Complete Time: 11:25 w 10/23 11:12 Order name: O2 Sat Monitoring; Complete Time: 11:25 snw Administered Medications: Discontinued: NS 0.9% 1000 ml IV at 75 ml/hr continuous 11:40 Drug: NS 0.9% 1000 ml Route: IV; Rate: 75 ml/hr; Site: right jugular; jl7 15:06 Follow up: IV Status: Completed infusion jl7 12:00 Drug: Ativan 1 mg Route: IVP; Site: right jugular; jl7 12:30 Follow up: Response: No adverse reaction; Marked relief of symptoms jl7 12:04 Drug: Phenergan 6.25 mg Route: IVP; Site: right jugular; jl7 12:30 Follow up: Response: No adverse reaction; Nausea is decreased jl7 14:50 Drug: NS 0.9% 1000 ml Route: IV; Rate: 125 ml/hr; Site: right jugular; jl7 14:58 Drug: Valium 5 mg Route: IVP; Site: right jugular; jl7 15:08 Follow up: Response: No adverse reaction; Marked relief of symptoms jl7 15:21 Drug: Phenergan 6.25 mg Route: IVP; Site: right jugular; jl7 Disposition: 10/24 07:22 Co-signature as Attending Physician, Flavio Mcgill MD I agree with the assessment and kdr plan of care. Disposition: 10/23/18 15:29 Discharged to Home. Impression: Chest pain, unspecified, Generalized abdominal pain. - Condition is Stable. - Discharge Instructions: Abdominal Pain, Adult, Nonspecific Chest Pain, Hypertension, Rehydration, Adult. - Prescriptions for Bentyl 20 mg Oral Tablet - take 1 tablet by ORAL route every 6 hours As needed; 20 tablet. Protonix 40 mg Oral Tablet - take 1 tablet by ORAL route once daily; 30 tablet. promethazine 25 mg Oral Tablet - take 1 tablet by ORAL route every 6 hours As needed; 20 tablet. - Medication Reconciliation Form, Thank You Letter, Antibiotic Education, Prescription Opioid Use form. - Follow up: Private Physician; When: Tomorrow; Reason: Recheck today's complaints, Continuance of care, Re-evaluation by your physician. Follow up: Emergency Department; When: As needed; Reason: Worsening of condition. - Problem is an ongoing problem. - Symptoms are unchanged. Signatures: Dispatcher [employer] EDCynthia Lazar, RN Flavio Cary ch, MD MD [facility] Kalli Garcia, BUTTON PUNCHER-C BUTTON PUNCHER-Csnw Krissy Viveros RN RN tw2 Iliana Xavier RN RN jl7 Corrections: (The following items were deleted from the chart) 10/23 15:51 15:29 10/23/2018 15:29 Discharged to Home. Impression: Chest pain, unspecified; tw2 Generalized abdominal pain. Condition is Stable. Forms are Medication Reconciliation Form, Thank You Letter, Antibiotic Education, Prescription Opioid Use. Follow up: Private Physician; When: Tomorrow; Reason: Recheck today's complaints, Continuance of care, Re-evaluation by your physician. Follow up: Emergency Department; When: As needed; Reason: Worsening of condition. Problem is an ongoing problem. Symptoms are unchanged. snw
[2018-10-23 15:57] VITALS: TEMP 98.2
[2018-10-23 16:01] VITALS: BP 127/92; O2SAT 99
--- NOTE | 2018-10-24 07:49 | EKG ---
Test Date: 2018-10-23 Test Time: 11:09:59 Portable Irrigation Operator: [place] MEASUREMENT RESULTS: Intervals: Rate: 94 WI: 150 QRSD: 76 QT: 344 QTc: 430 Cope: P: 62 WI: 150 QRS: 13 T: 40 INTERPRETIVE STATEMENTS: Normal sinus rhythm Normal ECG Compared to ECG 03/19/2018 19:57:32 Left ventricular hypertrophy no longer present Electronically Signed On 10-24-18 07:46:25 ELECTRONIC TECHNOLOGIST by Lokesh Motta
== END 2018-10-23 15:51 | disposition home or self-care (01) ==
LOC: ER 11:00
DX: R10.84 Generalized abdominal pain (principal); R07.9 Chest pain, unspecified; I10 Essential (primary) hypertension; I25.2 Old myocardial infarction; Z88.0 Allergy status to penicillin; Z88.1 Allergy status to other antibiotic agents; Z88.5 Allergy status to narcotic agent; Z88.6 Allergy status to analgesic agent; Z88.8 Allergy status to other drugs, medicaments and biological substances; Z91.048 Other nonmedicinal substance allergy status
CPT/HCPCS: 36415; 71045; 74177; 80048; 80076; 81003; 83690; 83735; 83880; 84484 ×2; 85025; 85610; 93005; 96361; 96374; 96375; 99284; J2550; J3360; J7030

== ENCOUNTER 2019-09-06 09:20 | Emergency (ER) | payer OTHER ==
--- OUTSIDE RECORDS SUMMARY | 2019-09-06 09:21 | XMS REPORT ---
:1960 [facility] Address [address] [place] [address] Care Team Providers Name Role Phone Unavailable Unavailable Unavailable Problems This patient has no known problems. Allergies, Adverse Reactions, Alerts This patient has no known allergies or adverse reactions. Medications This patient has no known medications. Encounters Start End Encounter Admission Attending Care Care Encounter Date/Time Date/Time Type Type Clinicians Facility Department ID 2019-06-11 2019-06-11 Outpatient [facility] CAR [id number] 12:15:00 12:15:00
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
--- OUTSIDE RECORDS SUMMARY | 2019-09-06 09:30 | XMS REPORT | Encounter Summary ---
:1960 Author Reason for Visit Psychiatric Follow Up Instructions 1. Moderate recurrent major depression hydroxyzine HCl 25 mg tablet sertraline 50 mg tablet alprazolam 0.5 mg tablet 2. Mixed anxiety and depressive disorder Risperdal 1 mg tablet Discussion Note CONTINUE CURRENT MEDICATIONS/DOSES. Patient educational handouts: No information available. Plan of Care Reminders Provider Appointments Extraction 08/26/2019 Ney Francois 1:00PM [facility] [place] on or around [facility] Huff, Psychiatry 10/22/2019 Lab None recorded. Referral None recorded. Procedures None recorded. Surgeries None recorded. Imaging None recorded. Medications Name Start Date alprazolam 0.5 mg tablet Take 1 tablet as needed by oral route with meals for 30 days. carvedilol 6.25 mg tablet clindamycin HCl 150 mg capsule clindamycin HCl 300 mg capsule Combivent Respimat 20 mcg-100 mcg/actuation solution for inhalation Creon 24,000-76,000-120,000 unit capsule,delayed release cyclobenzaprine 5 mg tablet dicyclomine 20 mg tablet estradiol 0.075 mg/24 hr weekly transdermal patch Flucelvax Quad 7117-2899 60 mcg (15 mcg x 4)/0.5 mL IM suspension furosemide 40 mg tablet gabapentin 100 mg capsule hydrocodone 10 mg-acetaminophen 325 mg tablet hydroxyzine HCl 25 mg tablet Take 1 tablet twice a day by oral route with meals for 30 days. lactulose 10 gram/15 mL oral solution losartan 100 mg tablet meclizine 12.5 mg tablet methocarbamol 750 mg tablet metoclopramide 10 mg tablet metolazone 5 mg tablet montelukast 10 mg tablet nitroglycerin 400 mcg/spray translingual omeprazole 40 mg capsule,delayed release ondansetron 4 mg disintegrating tablet ondansetron HCl 4 mg tablet pantoprazole 40 mg tablet,delayed release potassium chloride ER 20 mEq tablet,extended release(part/cryst) promethazine 25 mg tablet Reglan Risperdal 1 mg tablet Take 1 tablet(s) every day by oral route at bedtime for 30 days. sertraline 50 mg tablet Take 1 tablet every day by oral route with meals for 30 days. sucralfate 1 gram tablet Medications Administered None recorded. Vitals None recorded. Results Lab Results None recorded. Allergies None recorded. Problems None recorded. Procedures None recorded. Vaccine List None recorded. Social History None recorded. Past Encounters 08/22/2019 Moderate Recurrent Major Depression; Mixed Anxiety and Depressive Disorder Rosales Huff MD: [address] [facility], [place] [address], Ph. [phone] History of Present Illness Psych Medication Management Reported By: Patient Psychiatric General Follow-Up Reported By: Patient Review of Systems None recorded. Physical Exam Mental Status Exam Reported By: Patient Mental Status Exam: Appearance: clean, overweight. Behavior: cooperative, pleasant. Speech: clear, normal volume. Perception: no hallucinations. Cognition: alert, oriented to situation, oriented to time, oriented to place, oriented to person. Intelligence: average. Mood: euthymic. Affect: happy, congruent to thought content. Thought Processes: intact. Thought Content: unremarkable
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
--- OUTSIDE RECORDS SUMMARY | 2019-09-06 09:30 | XMS REPORT | Continuity of Care Document ---
:1960 Author Organization [facility] Address [address] [place] [address] Allergies, Adverse Reactions, Alerts Allergen Type Severity Reaction Last Updated Verified Status Diphenhydramine Allergy Severe August 14, Yes Active ([id number]) 2010 Ibuprofen Allergy Severe July 24, Yes Active ([id number]) 2016 Naloxone Allergy Severe November 24, Yes Active ([id number]) 2011 Norepinephrine Allergy Severe August 14, Yes Active ([id number]) 2010 Pentazocine Allergy Severe August 14, Yes Active ([id number]) 2010 Promethazine Allergy Moderate SUPPOSITORY ONLY, September 27, Yes Active ([id number]) IRRITATION 2018 Triamcinolone Allergy Severe November 05, Yes Active ([id number]) 2011 Penbutolol Allergy Severe July 24, Yes Active ([id number]) 2016 Levofloxacin Allergy Severe December 29, Yes Active ([id number]) 2014 Penicillins Allergy Severe July 24, Yes Active ([id number]) 2016 Medications Medication Status Dose Units Route Sig Qty Days Start End Instructions Date Date Acetamin/Codei Discontin 1 ORAL Every 15 5 July Do not combine with other products that contain Tylenol ne 300/30 Mg * ued 6 r 26, 1st, Hours 2018 2018 (acetaminophen). As 12:56pm [...] intentional Resolved Procedures Procedure Date Performed Status SCR MAMMO BI INCL CAD May 25, 2019 completed BREAST TOMOSYNTHESIS BI May 25, 2019 completed EMERGENCY DEPT VISIT May 23, 2019 completed THER/PROPH/DIAG INJ IV PUSH May 23, 2019 completed X-RAY EXAM CHEST 1 VIEW May 23, 2019 completed TX/PRO/DX INJ NEW DRUG ADDON May 23, 2019 completed HYDRATE IV INFUSION ADD-ON May 23, 2019 completed COMPLETE CBC W/AUTO DIFF WBC May 23, 2019 completed CREATINE MB FRACTION May 23, 2019 completed ASSAY OF CK (CPK) May 23, 2019 completed BLOOD CULTURE FOR BACTERIA May 23, 2019 completed BLOOD CULTURE FOR BACTERIA May 23, 2019 completed PROTHROMBIN TIME May 23, 2019 completed THROMBOPLASTIN TIME PARTIAL May 23, 2019 completed URINALYSIS AUTO W/SCOPE May 23, 2019 completed ROUTINE VENIPUNCTURE May 23, 2019 completed ASSAY OF TROPONIN QUANT May 23, 2019 completed ASSAY OF TROPONIN QUANT May 23, 2019 completed COMPREHEN METABOLIC PANEL May 23, 2019 completed ASSAY OF NATRIURETIC PEPTIDE May 23, 2019 completed ELECTROCARDIOGRAM TRACING May 23, 2019 completed May 23, 2019 completed MORPHINE SULFATE INJECTION May 23, 2019 completed EMERGENCY DEPT VISIT June 01, 2019 completed THER/PROPH/DIAG INJ IV PUSH June 01, 2019 completed TX/PRO/DX INJ NEW DRUG ADDON June 01, 2019 completed HYDRATE IV INFUSION ADD-ON June 01, 2019 completed ASSAY OF AMYLASE June 01, 2019 completed COMPLETE CBC W/AUTO DIFF WBC June 01, 2019 completed ASSAY OF LIPASE June 01, 2019 completed ASSAY OF MAGNESIUM June 01, 2019 completed URINALYSIS AUTO W/SCOPE June 01, 2019 completed ROUTINE VENIPUNCTURE June 01, 2019 completed COMPREHEN METABOLIC PANEL June 01, 2019 completed X-ray of chest, single view May 23, 2019 completed Computed tomography of abdomen and pelvis without July 16, 2019 completed contrast Relevant Diagnostic Tests and/or Laboratory Data Laboratory Results Test Date/Time Result Interpretation Reference Result Comment Performing Range Site White Blood June 14.4 4.0-11.5 [facility] [address] Count 2018 10:14am [place] [address] Red Blood Count June 4.32 3.80-5.20 [facility] [address] 2018 10:[address] [place] [address]37 Hemoglobin June 10.5 10.5-15.7 [facility], 104 2018 10:[address] [place] [address] 77196 Hematocrit Demetria 34.1 34.0-50.0 [facility], 104 2018 10:[address] [place] [address] 01553 Mean June 78.9 86-100 [facility], 104 Corpuscular 2018 Volume 10:[address] [place], [place] [address] Mean Demetria 24.3 26.2-33.4 [facility], 104 [facility] Corpuscular 2018 Hemoglobin 10:[address] [place] [address] 84699 Mean June 30.8 30-34 [facility], 104 [facility] Corpuscular 2018 Hemoglobin 10:[address] [place], [place] [address] Concent Red Cell June 15.8 12.0-15.5 [facility], 104 [facility] Distribution 2018 Width 10:[address] [place], [place] [id number] Platelet Count June 360 165-450 [facility], 104 [facility] 2018 10:[address] [place], [place] [address] Mean Platelet Demetria 9.8 9.4-12.6 [facility], 104 [facility] Volume 2018 10:[address] [place], [place] [address] Neutrophils (%) June 55.8 44.4-80.1 [facility], 104 (Auto) 2018 10:[address] [place] [address] 73725 Immature June 0.5 0.0-0.4 [facility], 104 Granulocyte % 2018 (Auto) 10:[address] [place] [address] 75567 Lymphocytes (%) June 30.6 10.0-50.0 [facility], 104 [facility] (Auto) 2018 10:[address] [place], [place] [id number] Monocytes (%) June 9.6 3.6-12.0 [facility], [facility] (Auto) 2018 10:[address] [place] [address] 20121 Eosinophils (%) June 2.9 0.0-5.4 [facility], [facility] (Auto) 2018 10:[address] [place] [address] 05964 Basophils (%) June 0.6 0.1-1.2 [facility], 104 [facility] (Auto) 2018 10:[address] [place], [place] [address] Neutrophils # Demetria 8.02 1.56-6.13 [facility], [address] (Auto) 2018 10:[address] [place], [place] [address] Absolute Demetria 0.1 0.0-0.03 [facility], [address] Immature 2018 Granulocyte 10:[address] [place], [place] [address] (auto Lymphocytes # Demetria 4.4 1.18-3.74 [facility], [address] (Auto) 2018 10:[address] [place], [place] [address] Monocytes # Demetria 1.38 0.24-0.86 [facility], [address] (Auto) 2018 10:[address] [place], [place] [address] Eosinophils # Demetria 0.42 0.04-0.36 [facility] [address] (Auto) 2018 10:[address] [place], [place] [address] Basophils # Demetria 0.08 0.01-0.08 [facility], [address] [facility] [address] (Auto) 2018 10:[address] [place], [place] [address] Neutrophils [place] 57 37.0-80.0 [facility], [address] 2018 6:[address] [place], [place] [address] Band [place] 0 0-3 [facility], [address] Neutrophils 2018 6:[address] [place], [place] [address] Lymphocytes [place] 33 10-50 [facility], [address] (Manual) 2018 6:[address] [place], [place] [id number] Atypical [place] 3 0 [facility] [address] Lymphocytes 2018 6:[address] [place], [place] [id number] Monocytes [place] 6 0-12 [facility] [address] (Manual) 2018 6:[address] [place], [place] [address] Eosinophils [place] 1 0-7 [facility] [address] (Manual) 2018 6:[address] [place], [place] [id number] Basophils [place] 0 0-3 [facility] [address] (Manual) 2018 6:[address] [place], [place] [id number] Nucleated Red Demetria 0 0-0.2 [facility] [address] Blood Cells % 2018 10:[address] [place], [place] [address] Nucleated Red Demet[place] 0 0 [facility], [address] Blood Cells # 2018 10:[address] [place], [place] [address] Platelet [place] ADEQUATE ADEQUATE [facility], [address] Estimate 2018 6:[address] [place], [place] [id number] Abnormal [place] NORMAL NORMAL [facility], [address] Platelet 2018 Morphology 6:12pm [place] [id number] Microcytosis May SLIGHT [facility], 104 [facility] 2018 6:12pm [facility] 89387 Prothrombin May 11.1 10.3-12.3 THERAPEUTIC [facility], [address] [place] [address] Time 2018 LEVEL: 1.5 to 6:12pm 1.9 times [place] [address] normal range of PT Prothromb Time May 1.01 Recommended [facility], [address] [place] [address] International 2018 therapeutic Ratio 6:12pm range for [place] [address] patients receiving warfarin (coumadin) therapy: INR is 2.0 to 3.0Recommended range for patients with mechanical prosthetic heart valves: INR is 2.5 to 3.5 Activated May 26.0 22.5-37.0 [facility], [address] [place] [address] Partial 2018 Thromboplast 6:12pm [place] [address] Time Urine Color June LIGHT [facility], [facility] 2018 YELLOW 12:09pm [place] 2[address]64 Urine Demetria CLEAR CLEAR [facility], [address] [place] [address] Appearance 2018 12:09pm [place] [id number] Urine Glucose June NEGATIVE NEGATIVE [facility], [address] [place] [address] (UA) 2018 12:09pm [place] [id number] Urine Bilirubin Demetria NEGATIVE NEGATIVE [facility], [address] [place] [address] 2018 12:09pm [place] [id number] Urine Ketones June NEGATIVE NEGATIVE [facility], [address] [place] [address] 2018 12:09pm [place] [id number] Urine Specific Demetria 1.005 1.003-1.03 [facility], [address] [place] [address] Voltaire 2018 0 12:09pm [place] [id number] Urine Blood June NEGATIVE NEGATIVE [facility], [facility] 2018 12:09pm [place] [id number] Urine pH June 7.000 5-9 [facility], [address] [place] [address] 2018 12:09pm [facility] 75098 Urine Protein June NEGATIVE NEGATIVE [facility], [address] [place] [address] 2018 12:09pm [facility] 23359 Urine Demetria NORMAL 0.2-1.0 [facility], [address] [place] [address] Urobilinogen 2018 12:09pm [place] [id number] Urine Nitrate Demetria NEGATIVE NEGATIVE [facility], [address] [place] [address] 2018 12:09pm [place] [address] Urine Leukocyte Demetria NEGATIVE NEGATIVE [facility], 104 Esterase 2018 12:09pm [facility] 93175 Urine RBC June <1 0-5 [facility], 104 2018 12:09pm [facility] 35488 Urine WBC June <1 0-5 [facility], 104 2018 12:09pm [facility] 41538 Urine Demetria 1-5 0-5 [facility], 104 Epithelial 2018 Cells 12:09pm [facility] 67878 Urine Bacteria June None None [facility], 104 2018 Detected Detect 12:09pm [facility] 03056 Urine Casts June None None [facility], 104 [facility] 2018 Detected Detect 12:09pm [facility] 15435 Urine Culture June NO [facility], [address] [place] [address] Reflexed 2018 12:09pm [facility] 45790 Random Glucose June 128 74-106 [facility], [facility] 2018 10:14[facility] 13797 Blood Urea June 7 6-20 [facility], [address] [place] [address] Nitrogen 2018 10:14[facility] 84640 Serum June 275 280-300 [facility], [address] [place] [address] Osmolality 2018 10:14[facility] 13710 Creatinine June 0.9 0.50-0.90 [facility], [facility] 2018 10:14[facility] 90534 Glomerular June > 60.00 GFR RESULTS ARE [facility], [facility] Filtration Rate 2018 REPORTED IN Calc 10:14am mL/min/1.73m2.N [facility] 06140 ormal GFR: >60mL/minModera tely decreased GFR: 30-59 mL/minSeverely decreased GFR: 15-29 mL/minKidney Failure (or Dialysis): <15 mL/minThe calculated eGFR is not valid for patients younger than 18 years or older than 75 years. BUN/Creatinine June 7.8 12-20 [facility], 104 Ratio 2018 10:14[facility] 56299 Sodium Level June 138 135-145 [facility], [facility] 2018 10:14[facility] 19051 Potassium Level June 3.9 3.5-5.2 [facility], [facility] 2018 10:[address] [place] [address] 98212 Chloride Level June 102 98-108 [facility], 104 [facility] 2018 10:[address] [place] [address] 76775 Carbon Dioxide June 24 21-32 [facility], [facility] Level 2018 10:[address] [place] [address] 87271 Anion Gap June 15.9 12-20 [facility], 104 [facility] 2018 10:[address] [place], [place] [address] Calcium Level June 8.9 8.6-10.0 [facility], 104 [facility] 2018 10:[address] [place], [place] [address] Magnesium Level May 2.0 1.6-2.6 [facility], 104 2018 6:00pm [facility] 22607 Total Protein June 7.2 6.6-8.7 [facility], 104 [facility] 2018 10:[address] [place], [place] [address] Albumin June 3.6 3.5-5.2 [facility], 104 [facility] 2018 10:[address] [place], [place] [address] Globulin June 3.6 [facility], 104 [facility] 2018 10:[address] [place] [address]602 Albumin/Globuli June 1.0 >1.0 [facility], 104 n Ratio 2018 10:[address] [place] [address] 81236 Total Bilirubin June < 0.3 0.0-1.2 [facility], 104 [facility] 2018 10:[address] [place] [address] 25383 Aspartate Amino July 15 15-32 [facility], 104 [facility] Transf 2018 (AST/SGOT) 10:[address] [place], [place] [address] Alanine June 17 0-33 [facility], 104 [facility] Aminotransferas 2018 e (ALT/SGPT) 10:[address] [place] [address] 48346 Amylase Level June 81 28-100 [facility], 104 2018 10:[address] [place] [address] 64236 Lipase June 37 13-60 [facility], 104 [facility] 2018 10:[address] [place] [address] 83910 UQ-Jhg-M-Type May 31 0-125 [facility], [address] [facility] Natriuretic 2018 Peptide 6:12pm [place] [id number] Total Alkaline June 179 35-105 [facility], 104 Phosphatase 2018 10:[address] [place] [address] 64834 Creatine Kinase May 250 20-[address] 2018 6:12pm [place] [address] Troponin I May < 0.30 0.0-0.[address] 2018 clinical 8:08pm studies have [place] [address] shown elevations of cTnI in patients with myocardial injury, as seen in unstable angina pectoris, cardiac contusions, and heart transplants. Elevations have also been seen in patients with rhabdomyolysis and polymyositis.El evated troponin levels point to myocardial injury, but are not necessarily indicative of an ischemic mechanism. The term NJ should be used when there is evidence of cardiac damage, as detected by marker proteins in a clinical setting consistent with myocardial ischemia. If the clinical circumstance suggests that an ischemic mechanism is unlikely, other causes of cardiac injury should be considered.For diagnostic purposes, the results should always be assessed in conjunction with the patient's medical history, clinical examination and other findings. Creatine Kinase May 1.4 0.0-3.[address] 2018 CITERIA: 6:12pm [facility] [place] [address] [facility] RELATIVE INDEX -----SUGGESTIVE OF NON-AMI < or=5 N/AGRAY ZONE (INCONCLUSIVE) > 5 < or=4SUGGESTIVE OF AMI >5 > 4 Microbiology Results Procedure Source Result Collection Result Result Performing Date/Time Date/Time Comment Site Blood Culture BLOOD FINAL May 23May 23, [address] REPORT. 2019 6:54pm 2019 7:00pm [place] [address] Diagnostic Imaging Reports Report Dictated Date/Time Dictated By Status May 23, 2019 6:22pm GLORIA PEREZ MD completed Patient: LEILA SIDDIQUI MR#: [id number] : 1960 Ordering DrAdrián: OSBALDO LEOS DO Pt Status : REG Pt Location: [facility] Date/Time: 05/23/19 7973 Primary Care Physician: JAZMYN RUSSO UNCLAIMED PROPERTY OFFICER Technologist(s): BARBARA VALLE Procedure(s): [id number] RAD/CHEST 1 VIEW Signed Examination: Single AP view of the chest. COMPARISON: None. INDICATION: Chest tightness DISCUSSION: Lines/tubes: None. Lungs: The lungs are well inflated and clear. No pneumonia or pulmonary edema. Pleura: No pleural effusion or pneumothorax. Heart and mediastinum: The heart and the mediastinum are unremarkable. Bones and soft tissues: No acute bony abnormalities. IMPRESSION: 1. No acute cardiopulmonary abnormalities. Signed by: Dr. Gloria Perez M.D. on 05/23/2019 6:22 PM Transcribed By: [facility] SIGNED <electronically signed by GLORIA PEREZ MD> 21 24 GLORIA PEREZ MD May 25, 2019 8:18pm TOMMY MONROY MD completed Patient: LEILA SIDDIQUI MR#: [id number] : 1960 Pt Location: [facility] Date/Time: 05/23/19 1758 Primary Care Physician: JAZMYN RUSSO NP Signed [facility] Test Date: 2019-05-23 Pat Name: LEILA JIN Department: Room: Gender: Compliance Technician: DR ADAN: 1960 Requested By: Order Number: Reading MD: Tommy Monroy M.D. F.A.A.C Measurements Intervals [employer] Rate: 85 P: 31 NV: 179 QRS: 21 QRSD: 86 T: 27 QT: 342 QTc: 407 Interpretive Statements Sinus rhythm Low voltage, precordial leads Baseline wander in lead(s) V6 Electronically Signed On 05-25-2019 20:18:37 CDT by Tommy Monroy M.D. F.A.A.C Transcribed By: [facility] SIGNED <electronically signed by TOMMY MONROY MD> 17 17 TOMMY MONROY MD May 25, 2019 5:27pm Ney Dixon MD completed Patient: LEILA SIDDIQUI MR#: [id number] : 1960 Ordering DrAdrián: JAZMYN RUSSO NP Pt Status: REG CLI Pt Location: [facility] Date/Time: 05/25/19 0851 Primary Care Physician: JAZMYN RUSSO UNCLAIMED PROPERTY OFFICER Technologist(s): FRANKY ROOT Procedure(s): [id number] RICHARD/MAMMOGRAM SCR JEFFREY W/VANDANA Signed History Patient is 58 years old and is seen for bilateral screening mammogram w/ tomosynthesis. The patient has no personal history of breast cancer. The patient has no family history of breast cancer. The patient has no history of breast surgeries. Films Compared The present examination has been compared to prior imaging studies performed at [facility] on 11/17/2013, 01/26/2015 and 12/27/2017. Technique Computer-aided detection was utilized by the radiologist in the interpretation of this examination. Mammogram Findings Views obtained: Bilateral CC; bilateral CC with tomosynthesis; bilateral MLO; bilateral MLO with tomosynthesis; and bilateral XCCL. The breasts are heterogeneously dense. This may lower the sensitivity of mammography. No suspicious masses, calcifications or other abnormalities are seen. Impression There is no mammographic evidence of malignancy. Routine follow-up mammogram in 1 year is recommended. BI-RADS Category 1: Negative mammogram Transcribed By: [facility] SIGNED <electronically signed by Ney Dixon MD> 26 26 Ney Dixon MD Health Concerns No known health concerns documented Advance Directives Advance Directive Response Recorded Date/Time Advance Directives No March 23, 2016 8:24pm Advance Directive on File No July 16, 2019 10:00am Directive to Physicians/Living Will No March 23, 2016 8:24pm Health Care Proxy No March 23, 2016 8:24pm Organ Donor Yes March 23, 2016 8:24pm Medical Power of Text[employer] Foot[employer] Mechanic No March 23, 2016 8:24pm Chief Complaint and Reason for Visit Chief Complaint Abdominal/GI/Nausea/Vomiting Reason for Visit [id number] Encounters Encounter Location(s) Arrival/Admit Date Discharge/Depart Date Provider(s) Departed [place] July 16, July 16, 2019 SHIRA SUN MD Emergency Room [place] [address] 9:39am 1:10pm Ctr Departed [place] June 01, 2019 June 01, 2019 SHIRA SUN MD Emergency Room [facility] 4:47pm 7:58pm Ctr Registered [place] May 25, 2019 JAZMYN RUSSO [facility] 8:38am UNCLAIMED PROPERTY OFFICER Ctr Departed [place] May 23, 2019 May 23, 2019 SHERRY GUY Emergency Room [facility] 5:50pm 9:35pm Corinne CHAPPELL Ctr Assessments No Assessments Information Available Family History Relationship Condition Age at Onset Recorded Date/Time MOTHER Family history of malignant Unknown September 17, 2018 2:23am neoplasm of colon Functional Status No Functional Status information available Goals No Goals Information Available Immunizations No Immunization Information Available Mental Status No Mental Status Information Available Medical Equipment No Medical Equipment Information available Insurance Providers Guarantor Leila Siddiqui Address [address] [facility] [address] Contact Info. Home Phone: Payer Policy Id Coverage Id Subscriber's Subscriber Id Effective Expiration Name Date Date Rush [id number] Emil Jin [id number] [facility] Plan of Treatment tylenol #3 every 6 hours as needed for pain #15 zofran 4mg every 6 hours as needed for nausea #15 clear liquids for next 24 hours follow up with plow holder in 3 days return for new or worsening of symptoms Future Tests Future scheduled test information is unavailable Pending Tests Pending diagnostic test information is unavailable Future Visits Future appointment information is unavailable Referrals to Other Providers Reason for Referral Start Provider Provider Contact Provider Address Referral Date Information JAZMYN RUSSO UNCLAIMED PROPERTY OFFICER Work Phone: [address] [facility] [address] Future Procedures Future procedure information is unavailable Future Medications Future medication information is unavailable Patient Instructions Chronic Pancreatitis Social History Smoking Status Status Date of Observation Ex-smoker (finding) July 16, 2019 10:00am Observation Status Observation Response Date of Response S/P cervical spinal fusion March 24, 2016 12:53am Hx Alcohol Use Y - OCCASIONALLY September 27, 2018 1:45am Hx Physical Abuse No July 16, 2019 10:00am Hx Recent Loss Y - SON SHOT ON May September 27, 2018 1:45am Assigned Sex Female Vital Signs Vital Reading Result Collection Date/Time
--- OUTSIDE RECORDS SUMMARY | 2019-09-06 09:30 | XMS REPORT | Encounter Summary ---
:1960 Author Reason for Visit Psychiatric Follow Up Instructions 1. Moderate recurrent major depression alprazolam 0.5 mg tablet hydroxyzine HCl 25 mg tablet sertraline 50 mg tablet 2. Mixed anxiety and depressive disorder Risperdal 1 mg tablet Discussion Note: None recorded.Patient educational handouts: No information available. Plan of Care Reminders Provider Appointments Extraction 07/20/2019 Ney Francois 8:00AM [place] on or around [place] Huff, Psychiatry 10/17/2019 MD Lab None recorded. Referral None recorded. Procedures None recorded. Surgeries None recorded. Imaging None recorded. Medications Name Start Date alprazolam 0.5 mg tablet Take 1 tablet as needed by oral route with meals for 30 days. carvedilol 6.25 mg tablet clindamycin HCl 150 mg capsule Creon 24,000-76,000-120,000 unit capsule,delayed release cyclobenzaprine 5 mg tablet dicyclomine 20 mg tablet estradiol 0.075 mg/24 hr weekly transdermal patch Flucelvax Quad 8176-8363 60 mcg (15 mcg x 4)/0.5 mL IM suspension furosemide 40 mg tablet gabapentin 100 mg capsule hydrocodone 10 mg-acetaminophen 325 mg tablet hydroxyzine HCl 25 mg tablet Take 1 tablet twice a day by oral route with meals for 30 days. losartan 100 mg tablet meclizine 12.5 mg tablet methocarbamol 750 mg tablet metoclopramide 10 mg tablet metolazone 5 mg tablet montelukast 10 mg tablet nitroglycerin 400 mcg/spray translingual omeprazole 40 mg capsule,delayed release ondansetron HCl 4 mg tablet pantoprazole 40 [...] Medications Administered None recorded. Vitals None recorded. Lab Results None recorded. Allergies None recorded. Problems None recorded. Procedures None recorded. Vaccine List None recorded. Social History None recorded. Past Encounters 07/18/2019 Moderate Recurrent Major Depression; Mixed Anxiety and Depressive Disorder Rosales Huff MD: [address], [address], [place] [address], Ph. [phone] History of Present Illness Psych Medication Management Reported By: Patient Psychiatric General Follow-Up Reported By: Patient Review of Systems None recorded. Physical Exam Mental Status Exam Reported By: Patient Mental Status Exam: Appearance: clean, overweight. Behavior: eye contact, calm , pleasant. Speech: clear, normal volume. Perception: no hallucinations. Cognition: alert, oriented to situation, oriented to time, oriented to place, oriented to person, memory intact, normal attention. Intelligence: average. Mood: euthymic. Affect: pleasant, congruent to thought content. Insight: intact. Thought Processes: intact. Thought Content: unremarkable. Motor Activity: intact
--- OUTSIDE RECORDS SUMMARY | 2019-09-06 09:31 | XMS REPORT | Continuity of Care Document ---
:1960 Author Organization [facility] Address [address] [place] [address] Allergies, Adverse Reactions, Alerts Allergen Type Severity Reaction Last Updated Verified Status Diphenhydramine Allergy Severe August 14, Yes Active ([id number]) 2010 Ibuprofen Allergy Severe July 24, Yes Active ([id number]) 2016 Naloxone Allergy Severe November 24, Yes Active ([id number]) 2011 Norepinephrine Allergy Severe August 14, Yes Active ([id number]) 2010 Pentazocine Allergy Severe August 14, Yes Active ([id number]) 2010 Promethazine Allergy Moderate SUPPOSITORY ONLY, September 27, Yes Active ([id number]) IRRITATION 2018 Triamcinolone Allergy Severe November 05, Yes Active ([id number]) 2011 Penbutolol Allergy Severe July 24, Yes Active ([id number]) 2016 Levofloxacin Allergy Severe December 29, Yes Active ([id number]) 2014 Penicillins Allergy Severe July 24, Yes Active ([id number]) 2016 Medications Medication Status Dose Units Route Sig Qty Days Start End Instructions Date Date Albuterol Active 1 RESPIRAT Every 60 10 Sulfate ORY 4 (INHALAT Hours ION) (1-5-9 -13-17 -21) for Shortn ess Of Breath Albuterol/Ipra Active 1 ORAL Four tropium Times Daily Alprazolam Active 1 ORAL Once Daily At Bedtim e Carvedilol Active 6.25 ORAL Twice A Day Dicyclomine Active 1 ORAL Once 60 30 Hcl Daily As Needed for Irrita ble Bowel Sympto ms Furosemide Active 1 ORAL Daily 30 30 Gabapentin Active 200 ORAL Twice A Day [...] before food Hcl A Day and bedtime Montelukast Active 1 ORAL Daily 30 30 Sodium Omeprazole Active 1 ORAL Daily 30 30 as needed for Indige stion Ondansetron Active 4 ORAL Every Hcl 6 Hours As Needed Ondansetron Discontin 1 ORAL Every [address] IN Hcl ued 6 r 26, 1st, MOUTH AND Hours 2018 2018 ALLOW TABLET As 12:56pm TO DISSOLVE Needed as needed for Nausea Pancrelipase Active 3 ORAL Four 90 30 (Lipase-Protea Times se- Daily Potassium Active 1 ORAL Daily 30 30 Chloride Er * Risperidone Active 1 ORAL Once 30 Daily At Bedtim e Sertraline Hcl Active 1 ORAL Daily 30 30 Sucralfate Active 1 ORAL Before 120 Meals And At Bedtim e Acetamin/Codei Discontin 1 ORAL Every 15 5 Novem Do not combine with other products that contain Tylenol ne 300/30 Mg * ued 6 r 26th, r 2nd, Hours 2019 2018 (acetaminophen). As 12:56pm Needed as needed for Pain Albuterol * Discontin 2.5 RESPIRAT Rt-Marybel January ued ORY ry 6 14th, (INHALAT Hours 2017 ION) As Needed Albuterol * Discontin 2.5 RESPIRAT Rt-Marybel Novem ued ORY ry 6 r 6th, (INHALAT Hours 2015 ION) As Needed Alprazolam Discontin 1 ORAL Daily 30 30 Decembe ued As r 7th, Needed 2018 as needed for Anxiet y Alprazolam Discontin 1 ORAL Bedtim Novembe ued e r 28, 2018 Amitriptyline Discontin 1 ORAL Once 30 Decembe Hcl ued Daily r 14, At 2017 Bedtim e Amitriptyline Discontin 100 ORAL Once Christina Hcl ued Daily 14, At 2017 Bedtim e Azithromycin Discontin 500 ORAL Once Decembe ued Daily r , 2015 Carbamazepine Discontin Novembe ued r , 2015 Carvedilol Discontin 6.25 ORAL Twice Decembe ued A Day r 14, 2017 Carvedilol Discontin 3.125 ORAL Once February ued Daily 2015 Cefdinir Discontin 1 ORAL Twice August Novembe ued A Day 28, r 2nd, for 2018 2019 Leukoc 11:52pm ytosis Ciprofloxacin Discontin 1 ORAL Twice January Hcl ued A Day , for 2016 2017 Gastro 11:21am enteri tis Dexlansoprazol Discontin 60 ORAL Daily October e * ued 2014 Dicyclomine Discontin 10 ORAL Three Novembe Hcl ued Times r , A Day 2015 Estradiol Discontin 1 Every Decembe ued 7 Days r 2017 Furosemide Discontin 1 ORAL Daily January ued 2016 Gabapentin Discontin 400 ORAL Twice Novembe ued A Day r , 2015 Hydrocodone-Ac Discontin 1 ORAL Every Novembe [...] 100 ORAL Daily Novem Potassium ued r , 2015 Losartan Discontin 100 ORAL Daily October Potassium ued 2014 Lubiprostone * Discontin 24 ORAL Twice 60 Decembe ued A Day r , 2016 Lubiprostone * Discontin 1 ORAL Twice 60 Decembe ued A Day r 2015 Methocarbamol Discontin Decembe ued r , 2017 Methocarbamol Discontin 1 ORAL Every January ued 8 14th, Hours 2017 As Needed Methocarbamol Discontin ORAL October ued 2014 Metoclopramide Discontin 10 ORAL Twice 90 Decembe Hcl ued A Day r 2017 Metoclopramide Discontin 10 ORAL Twice Novembe Hcl ued A Day r 2015 Metolazone Discontin 5 ORAL Every Novembe ued Mornin r , g 2018 Metolazone Discontin 1 ORAL Once Decembe ued Daily r 2015 Metronidazole Discontin 500 ORAL Every January ued 8 , , Hours 2017 2017 for 11:21am Gastro enteri tis Montelukast Discontin 10 ORAL Once Decembe Sodium ued Daily r , 2017 Omeprazole-Sod Discontin 1 ORAL Once Decembe ium ued Daily r , Bicarbonate 2017 Omeprazole/Sod Discontin 40 ORAL Daily Novembe Bicarb ued r , Mg 2015 Ondansetron Discontin 1 ORAL Q 8 Novembe Hcl ued Hrs r 28th, Prn as 2018 needed for Nausea And [...] 2016 Meals Potassium Discontin 10 ORAL Daily Clara Chloride * ued 4th, 2014 Potassium Discontin 20 ORAL Twice Decembe Chloride Er * ued A Day r , 2015 Prednisone Discontin 4 ORAL Daily 1 5 Novembe ued r , 2018 Promethazine Discontin 12.5 ORAL Every 20 July Hcl ued 4-6 , Hours 2017 As Needed Quinine Discontin 324 ORAL Once Clara Sulfate ued Daily 2nd, At 2014 Bedtim e Sertraline Hcl Discontin Decembe ued [...] 16, 2019 completed July 16, [address] ABD & PELV W/CONTRAST August 11, 2019 completed EMERGENCY DEPT VISIT August 11, 2019 completed THER/PROPH/DIAG INJ IV PUSH August 11, 2019 completed TX/PRO/DX INJ NEW DRUG ADDON August 11, 2019 completed HYDRATE IV INFUSION ADD-ON August 11, 2019 completed COMPLETE CBC W/AUTO DIFF WBC August 11, 2019 completed ASSAY OF LIPASE August 11, 2019 completed URINALYSIS AUTO W/SCOPE August 11, 2019 completed ROUTINE VENIPUNCTURE August 11, 2019 completed COMPREHEN METABOLIC PANEL August 11, 2019 completed TX/PRO/DX INJ SAME DRUG 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 ASSOCIATE August 11, 2019 completed August 11, 2019 completed August 11, 2019 completed MORPHINE SULFATE INJECTION August 11, 2019 completed MORPHINE SULFATE INJECTION August 11, 2019 completed Computed tomography of abdomen and pelvis without July 16, 2019 completed contrast Computed tomography of abdomen and pelvis with August 11, 2019 completed contrast X-ray of chest, two views August 22, 2019 completed Relevant Diagnostic Tests and/or Laboratory Data Laboratory Results Test Date/Time Result Interpretation Reference Result Comment Performing Range Site White Blood August 17.3 4.0-11.5 [facility], [address] Count 2018 11:27pm [facility] [address] Red Blood Count August 4.19 3.80-5.20 [facility], [address] [facility] 2018 11:27pm [facility] [address]50[address] Hemoglobin August 10.2 10.5-15.7 [facility], [address] [facility] 2018 11:27pm [facility] 21963 Hematocrit November 32.5 34.0-50.0 [facility], [address] [facility] 2018 11:27pm [facility] [address]27[address] Mean August 77.6 86-100 [facility], [address] [facility] Corpuscular 2018 Volume 11:27pm [facility] 79577 Mean August 24.3 26.2-33.4 [facility], [address] [facility] Corpuscular 2018 Hemoglobin 11:27pm [facility] 12463 Mean August 31.4 30-34 [facility], [address] [facility] Corpuscular 2018 Hemoglobin 11:27pm [facility] 15164 Concent Red Cell August 15.0 12.0-15.5 [facility], [address] [facility] Distribution 2018 Width 11:27pm [facility] 59188 Platelet Count August 385 165-450 [facility], [address] [facility] 2018 11:27pm [facility] 36312 Mean Platelet August 9.9 9.4-12.6 [facility], [address] [facility] Volume 2018 11:27pm [facility] 87869 Neutrophils (%) August 47.3 44.4-80.1 [facility], [address] [facility] (Auto) 2018 11:27pm [facility] 97691 Immature August 0.2 0.0-0.4 [facility], 104 Granulocyte % 2018 (Auto) 11:27pm [facility] 20944 Lymphocytes (%) August 38.5 10.0-50.0 [facility], [address] [facility] (Auto) 2018 11:27pm [facility] 46632 Monocytes (%) August 9.9 3.6-12.0 [facility], [address] [facility] (Auto) 2018 11:27pm [facility] 24696 Eosinophils (%) August 3.9 0.0-5.4 [facility], [address] [facility] (Auto) 2018 11:27pm [facility] 82740 Basophils (%) August 0.2 0.1-1.2 [facility], [address] [facility] (Auto) 2018 11:27pm [facility] 98060 Neutrophils # August 8.19 1.56-6.13 [facility], [address] [facility] (Auto) 2018 11:27pm [facility] 15089 Absolute November 0.0 0.0-0.03 [facility], [address] [facility] Immature 2018 Granulocyte 11:27pm [facility] 30423 (auto Lymphocytes # August 6.7 1.18-3.74 [facility], [address] [facility] (Auto) 2018 11:27pm [facility] 48186 Monocytes # August 1.72 0.24-0.86 [facility], [address] [facility] (Auto) 2018 11:27pm [facility] 95579 Eosinophils # August 0.67 0.04-0.36 [facility], [address] [facility] (Auto) 2018 11:27pm [facility] 27434 Basophils # August 0.04 0.01-0.08 [facility], [address] [facility] (Auto) 2018 11:27pm [facility] 28188 Nucleated Red November 0 0-0.2 [facility], [address] [facility] Blood Cells % 2018 11:27pm [place] [id number] Nucleated Red November 0 0 [facility], [address] [facility] Blood Cells # 2018 11:27pm [place] [id number] Urine Color November YELLOW [facility], 104 2018 12:22am [facility] 92885 Urine November CLEAR CLEAR [facility], [address] [facility] Appearance 2018 12:22[facility] 33502 Urine Glucose November NEGATIVE NEGATIVE [facility], [address] [facility] (UA) 2018 12:22[place] [id number] Urine Bilirubin November NEGATIVE NEGATIVE [facility], [facility] 2018 12:22[place] [id number] Urine Ketones November NEGATIVE NEGATIVE [facility], 104 2018 12:22[place] [id number] Urine Specific November 1.010 1.003-1.03 [facility], [address] [place] [address] [place] 2018 0 12:22[facility] 06228 Urine Blood November NEGATIVE NEGATIVE [facility], 104 2018 12:22[facility] 10850 Urine pH August 8.000 5-9 [facility], 104 2018 12:22[place] [id number] Urine Protein November NEGATIVE NEGATIVE [facility], [facility] 2018 12:22am [place] [address] Urine November 0.2 0.2-1.0 [facility], [facility] 7TH Urobilinogen 2018 12:22am [facility] 81992 Urine Nitrate August NEGATIVE NEGATIVE [facility], [address] [place] [address] 2018 12:22am [facility] 49852 Urine Leukocyte August NEGATIVE NEGATIVE [facility], [address] [place] [address] Esterase 2018 12:22am [facility] 88352 Urine RBC August NONE SEEN 0-5 [facility], [address] [place] [address] 2018 12:22am [facility] 08770 Urine WBC August NONE SEEN 0-5 [facility], [address] [facility] 2018 12:22am [facility] 39374 Urine November NONE SEEN 0-5 [facility], [address] [facility] Epithelial 2018 Cells 12:22am [facility] 28396 Urine Bacteria August None None [facility], [address] [place] [address] 2018 Detected Detect 12:22am [facility] 27124 Urine Casts July None None [facility], [address] [place] [address] 2018 Detected Detect 4:41pm [facility] 78383 Urine Culture August NO [facility], [address] [place] [address] Reflexed 2018 12:22am [facility] 51127 Random Glucose August 105 74-106 [facility], [address] [place] [address] 2018 11:43pm [facility] 75310 Blood Urea August 6 6-20 [facility], [address] [place] [address] Nitrogen 2018 11:43pm [facility] 23380 Serum August 279 280-300 [facility], [address] [place] [address] Osmolality 2018 11:43pm [facility] 26748 Creatinine August 0.8 0.50-0.90 [facility], [address] [place] [address] 2018 11:43pm [facility] 08337 Glomerular August > 60.00 GFR RESULTS ARE [address] Filtration Rate 2018 REPORTED IN Calc 11:43pm mL/min/1.73m2.N [facility] 70268 ormal GFR: >60mL/minModera tely decreased GFR: 30-59 mL/minSeverely decreased GFR: 15-29 mL/minKidney Failure (or Dialysis): <15 mL/minThe calculated eGFR is not valid for patients younger than 18 years or older than 75 years. BUN/Creatinine August 7.5 12-20 [facility], [address] [place] [address] Ratio 2018 11:43pm [facility] 85954 Sodium Level August 141 135-145 [facility], 104 2018 11:43pm [facility] 14169 Potassium Level August 3.7 3.5-5.2 [facility], 104 2018 11:43pm [facility] 61403 Chloride Level August 102 98-108 [facility], 104 2018 11:43pm [facility] 30304 Carbon Dioxide August 29 21-32 [facility], [address] [place] [address] 2018 11:43pm [facility] 59346 Anion Gap August 13.7 12-20 [facility], 104 2018 11:43pm [facility] 82658 Calcium Level August 8.9 8.6-10.0 [facility], 104 2018 11:43pm [facility] 28781 Total Protein July 7.4 6.6-8.7 [facility], [address] [place] [address] 2018 4:11pm [facility] 49570 Albumin July 3.7 3.5-5.2 [facility], [address] [place] [address] 2018 4:11pm [facility] 63237 Globulin July 3.7 [facility], [address] [facility] 2018 4:11pm [facility] 82046 Albumin/Globuli July 1.0 >1.0 [facility], [facility] n Ratio 2018 4:11pm [facility] 15648 Total Bilirubin July < 0.3 0.0-1.2 [facility], [address] [place] [address] 2018 4:11pm [facility] 23853 Aspartate Amino July 19 15-32 [facility], [address] [facility] 2018 (AST/SGOT) 4:11[facility] 567[address] Alanine July 12 0-33 [facility], [address] [place] [address] Aminotransferas 2018 e (ALT/SGPT) 4:11pm [facility] 06402 Amylase Level June 81 28-100 [facility], [address] [facility] 2018 10:14am [facility] 47023 Lipase July 63 13-60 [facility], [address] [facility] 2018 4:11pm [facility] 02796 Total Alkaline July 154 35-105 [facility], [address] [facility] Phosphatase 2018 4:11pm [facility] 80548 Troponin I August < 0.30 0.0-0.5 Published [facility], [facility] 2018 clinical 6:23am studies have [facility] 91072 shown elevations of cTnI in patients with [...] medical history, clinical examination and other findings. Diagnostic Imaging Reports Report Dictated Date/Time Dictated By Status July 16, 2019 12:35pm CLAUDE LEA MD completed Patient: LEILA SIDDIQUI MR#: [id number] : [address] KARLI PEOPLES Pt Status: DEP ER Pt Location: [facility] Date/Time: 07/16/19 1151 Primary Care Physician: JAZMYN RUSSO OCC THER Technologist(s): RAYA BETHEA Procedure(s): [id number] CT/CT ABD & PELVIS W/O Signed CT [...] No CT evidence of pancreatitis. Signed by: Claude Lea on 07/16/2019 12:35 PM Transcribed By: [employer] SIGNED <electronically signed by CLAUDE LEA MD> [id number] CLAUDE LEA MD August 11, 2019 7:31pm BIRGIT ROMERO MD completed Patient: LEILA SIDDIQUI MR#: [id number] : [address] ANAMARIA IBANEZ MD Pt Status: [facility] Pt Location: [facility] Date/Time: 08/11/19 1718 Primary Care Physician: JAZMYN RUSSO OCC THER Technologist(s): DARREL STOVALL Procedure(s): [id number] CT/CT ABD & PELVIS W Signed EXAM: CT Abdomen and Pelvis WITH contrast INDICATION: Epigastric pain. Chronic pancreatitis COMPARISON: 07/16/2019. TECHNIQUE: Abdomen and pelvis were scanned utilizing a multidetector helical scanner from the lung base to the pubic symphysis after administration of IV contrast. Coronal and sagittal reformations were obtained. Routine protocol was performed. Scan was performed when during portal venous phase. IV CONTRAST: 100 mL of Isovue-300 ORAL CONTRAST: Water COMPLICATIONS: None RADIATION DOSE: Total DLP: 946 mGy*cm Estimated effective dose: (DLP x 0.015 x size factor) mSv CTDIvol has been reviewed. It is below the limits set by the Radiation Protocol Committee (RPC). Dose modulation, iterative reconstruction, and/or weight based adjustment of the mA/kV was utilized to reduce the radiation dose to as low as reasonably achievable. FINDINGS: LINES and TUBES: None. LOWER THORAX: Calcified granuloma in the lingula HEPATOBILIARY: No focal hepatic lesions. No biliary ductal dilation. GALLBLADDER: Surgically absent SPLEEN: No splenomegaly. PANCREAS: No focal masses or ductal dilatation. ADRENALS: No adrenal nodules KIDNEYS/URETERS: Kidneys enhance symmetrically. No hydronephrosis. No cystic or solid mass lesions. No stones. GI TRACT: No abnormal distention, wall thickening, or evidence of bowel obstruction. Appendix is normal. PELVIC ORGANS/BLADDER: Unremarkable. LYMPH NODES: No lymphadenopathy. VESSELS: Unremarkable. PERITONEUM / RETROPERITONEUM: No free air or fluid. BONES: Unremarkable. SOFT TISSUES: Surgical clips in the left breast. IMPRESSION: 1. No CT scan evidence to suggest pancreatitis. Signed by: Dr. Birgit Romero M.D. on 08/11/2019 7:31 PM Transcribed By: [employer] SIGNED <electronically signed by BIRGIT ROMERO MD> 30 [phone] BIRGIT ROMERO MD Health Concerns No known health concerns documented Advance Directives Advance Directive Response Recorded Date/Time Advance Directives No March 23, 2016 8:24pm Advance Directive on File No August 22, 2019 11:02pm Directive to Physicians/Living Will No March 23, 2016 8:24pm Health Care Proxy No March 23, 2016 8:24pm Organ Donor Yes March 23, 2016 8:24pm Medical Power of Pipeline Executive No March 23, 2016 8:24pm Chief Complaint and Reason for Visit Chief Complaint Chest Pain Reason for Visit [id number] Encounters Encounter Location(s) Arrival/Admit Date Discharge/Depart Date Provider(s) Departed [place] August 22, 2019 August 23, 2019 ROXANNE SWENSON Emergency Room [facility] 10:59pm 7:05am Sang [facility] Departed [place] August 11, 2019 August 11, 2019 SHAMAR [facility] 3:25pm 8:24pm ANAMARIA Yoder MD Ctr Departed [place] July 16July 16, 2019 SHIRA SUN MD Emergency Room [facility] 2018 9:39am 1:10pm Ctr Assessments No Assessments Information [...] Insurance Providers Guarantor Leila Siddiqui Address [address] [address] Contact Info. Home Phone: Payer Policy Id Coverage Id Subscriber's Subscriber Id Effective Expiration Name Date Date [place] [id number] Emil Jin [id number] [facility] Leila [facility]ly [facility] Medicaid [id number] Emil Jin [id number] Leila Plan of Treatment please follow up with your primary care DrAdrián on Saturday. Call to make an appointment to be seen on Saturday or walk in to the clinic on Saturday. Future Tests Future scheduled test information is unavailable Pending Tests Pending diagnostic test information is unavailable Future Visits Future appointment information is unavailable Referrals to Other Providers Reason for Referral Start Provider Provider Contact Provider Address Referral Date Information JAZMYN RUSSO OCC THER Work Phone: [address] [facility] [address] Future Procedures Future procedure information is unavailable Future Medications Future medication information is unavailable Patient Instructions Nonspecific Chest Pain, [id number] Social History Smoking Status Status Date of Observation Ex-smoker (finding) August 22, 2019 11:02pm Observation Status Observation Response Date of Response S/P cervical spinal fusion March 24, 2016 12:53am Hx Alcohol Use Y - OCCASIONALLY September 27, 2018 1:45am Hx Physical Abuse No August 22, 2019 11:02pm Hx Recent Loss Y - SON SHOT ON May September 27, 2018 1:45am Assigned Sex Female Vital Signs Vital Reading Result Collection Date/Time
[2019-09-06 10:10] LABS: Absolute Lymphocytes (CBC) 4.4 K/uL (0.7-4.9); Basophils % 1.2 % (0-1.3); Hematocrit 33.6 % (36.0-45.0); Lymphocytes % 30.5 % (15.3-44.8); MPV 8.4 fL (7.6-11.3); RBC Red Blood Cell Count 4.41 M/uL (3.86-4.86)
[2019-09-06] MEDS ORDERED: ONDANSETRON 4 MG/2 ML VIAL ONE (10:13)
[2019-09-06] MEDS ORDERED: NA CHLORIDE 0.9% 500 ML ONE (10:13)
[2019-09-06] MEDS ORDERED: MORPHINE 4 MG/ML SYR ONE ×2 (10:13→11:53)
[2019-09-06 10:25] LABS: ALT/SGPT 14 U/L (12-78); AST/SGOT 15 U/L (15-37); Albumin 3.1 g/dL (3.4-5.0); Alkaline Phosphatase 166 U/L (45-117); BUN Blood Urea Nitrogen 10 mg/dL (7-18); Bicarbonate 28 mmol/L (21-32); Bilirubin Direct < 0.1 mg/dL (0-0.2); Bilirubin Total 0.2 mg/dL (0.2-1.0); Glucose Level 131 mg/dL (74-106); Lipase 208 U/L (73-393); Potassium 3.6 mmol/L (3.5-5.1); Protein, Total 7.6 g/dL (6.4-8.2); Sodium Level 139 mmol/L (136-145)
--- NOTE | 2019-09-06 10:54 | RAD REPORT ---
EXAM DESCRIPTION: CT - Abdomen Pelvis W Contrast - 09/06/2019 10:40 am CLINICAL HISTORY: ABD PAIN, nausea and vomiting COMPARISON: October 2018 TECHNIQUE: Biphasic, helical CT imaging of the abdomen and pelvis was performed following 100 ml non -ionic IV contrast. No oral contrast administered All CT scans are performed using dose optimization technique as appropriate and may include automated exposure control or mA/KV adjustment according to patient size. FINDINGS: No suspicious findings in the lung bases. The liver, spleen, and pancreas show no suspicious findings. Gallbladder is absent. Biliary tree with in normal limits for a post cholecystectomy patient. Symmetric renal function is seen with no hydronephrosis or suspicious renal mass. No pyelonephritis o r acute parenchymal process. No bladder abnormalities. No adrenal abnormalities. Stomach is not dilated. [place] of the antrum are mildly prominent believed to be due to a peristalsis affect. No focal wall thickening, mass or abnormal enhancement pattern seen. Duodenal C-loop also wit hout acute finding. Remainder of the small bowel unremarkable. Moderate stool volume present througho ut the colon. The appendix is not clearly defined. No appendicitis findings. Uterus is absent. Ovarie s are absent or atrophic. No free air, free fluid or inflammatory stranding. No mass or bulky lymphadenopathy. Right-sided i nguinal hernia changes are present containing only fat. No active process. No suspicious bony findings. IMPRESSION: Contrast enhanced CT abdomen and pelvis showing no acute or emergent finding. Nonacute findings detailed in the body of the report.
--- NOTE | 2019-09-06 11:57 | ER ---
Nurse's Notes [facility] Name: Leila Stein Age: 58 yrs Sex: Female : 1960 Arrival Date: 09/06/2019 Time: 09:22 Bed 5 Private MD: Diagnosis: Unspecified abdominal pain Presentation: 09/06 09:42 Presenting complaint: Patient states: Abd pain, N/V for the last three days. Transition la1 of care: patient was not received from another setting of care. Onset of symptoms was September 06, 2019. Risk Assessment: Do you want to hurt yourself or someone else? Patient reports no desire to harm self or others. Initial Sepsis Screen: Does the patient meet any 2 criteria? No. Patient's initial sepsis screen is negative. Does the patient have a suspected source of infection? No. Patient's initial sepsis screen is negative. Care prior to arrival: None. 09:42 Method Of Arrival: Ambulatory la1 09:42 Acuity: JARROD 3 la1 Historical: - Allergies: 09:36 Demerol; la1 09:36 Diphenhydramine; la1 09:36 Ibuprofen; la1 09:36 Kenalog; la1 09:36 levabid; la1 09:36 Levaquin; la1 09:36 Naloxone; la1 09:36 Norepinephrine Bitartrate; la1 09:36 Penbutolol; la1 09:36 PENICILLINS; la1 09:36 PENTAZOCINE; la1 09:36 Talwin; la1 09:36 Tape; la1 09:36 Triamcinolone Acetonide; la1 - Home Meds: 09:42 hydroxyzine HCl 25 mg Oral tab 1 tab every 4-6 hrs as needed [Active]; carvedilol 6.25 la1 mg Oral tab 1 tab 2 times per day [Active]; gabapentin 100 mg Oral cap 2 caps bid [Active]; sertraline 50 mg Oral tab 1 tab once daily [Active]; metoclopramide HCl 10 mg Oral tab 1 tab twice a day [Active]; losartan 100 mg Oral tab 1 tab once daily [Active]; meclizine 12.5 mg Oral tab 2 tabs 3 times per day [Active]; omeprazole 40 mg Oral cpDR 1 cap once daily [Active]; risperidone 1 mg oral tab 1 tab once daily [Active]; furosemide 40 mg Oral tab 1 tab once daily [Active]; montelukast 10 mg Oral tab 1 tab once daily [Active]; Creon 24,000-76,000 -120,000 unit Oral cpDR [Active]; methocarbamol 750 mg Oral tab 1 tab every 8 hours [Active]; alprazolam 0.5 mg oral tab [Active]; - PMHx: 09:36 CHF; CVA; Hypertension; Myocardial infarction; Pancreatitis; la1 - Immunization history:: Adult Immunizations up to date. - Social history:: Smoking status: Patient/guardian denies using tobacco. - Ebola Screening: : No symptoms or risks identified at this time. Screenin:43 Abuse screen: Denies threats or abuse. Nutritional screening: No deficits noted. la1 Tuberculosis screening: No symptoms or risk factors identified. Fall Risk No fall in past 12 months (0 pts). No IV (0 pts). Ambulatory Aid- None/Bed Rest/Nurse Assist (0 pts). Gait- Normal/Bed Rest/Wheelchair (0 pts) Mental Status- Oriented to own ability (0 pts). Total Esquivel Fall Scale indicates No Risk (0-24 pts). Assessment: 09:43 General: Appears uncomfortable, Behavior is calm, cooperative. Pain: Complains of pain la1 in epigastric area, posterior aspect of right lateral abdomen, anterior aspect of right lateral abdomen and right upper quadrant. Neuro: Level of Consciousness is awake, alert, obeys commands, Oriented to person, place, time, situation. Cardiovascular: Capillary refill < 3 seconds Patient's skin is warm and dry. Respiratory: Airway is patent Respiratory effort is even, unlabored, Respiratory pattern is regular, agonal. GI: Abdomen is non-distended, obese, Bowel sounds present X 4 quads. Abd is soft X 4 quads Abdomen is tender to palpation in epigastric area, posterior aspect of right lateral abdomen, anterior aspect of right lateral abdomen and right upper quadrant. : No signs and/or symptoms were reported regarding the genitourinary system. 10:44 Reassessment: Patient appears in no apparent distress at this time. No changes from la1 previously documented assessment. Patient and/or family updated on plan of care and expected duration. Pain level reassessed. Patient is alert, oriented x 3, equal unlabored respirations, skin warm/dry/pink. 12:13 Reassessment: Patient appears in no apparent distress at this time. No changes from aj1 previously documented assessment. Patient and/or family updated on plan of care and expected duration. Pain level reassessed. Patient is alert, oriented x 3, equal unlabored respirations, skin warm/dry/pink. Vital Signs: 09:35 BP 139 / 71; Pulse 84; Resp 16; Temp 98.1; Pulse Ox 100% on R/A; Weight 90.72 kg; la1 Height 5 ft. 1 in. (154.94 cm); 12:14 BP 142 / 75; Pulse 88; Resp 18; Pulse Ox 97% on R/A; aj1 09:35 Body Mass Index 37.79 (90.72 kg, 154.94 cm) la1 ED Course: 09:22 Patient arrived in ED. as 09:25 Danny Valle NP is PHCP. pm1 09:25 Denzel Sharma MD is Attending Physician. pm1 09:29 Danny Barillas RN is Primary Nurse. la1 09:42 Arm band placed on right wrist. la1 09:43 Triage completed. la1 09:43 Placed in gown. Bed in low position. Call light in reach. Pulse ox on. NIBP on. la1 09:48 CT completed. Radiology exam delayed due to lab results not completed at this time. kw1 (BUN/Creatinine). 10:18 Radiology exam delayed due to lab results not completed at this time. (BUN/Creatinine). kw1 10:18 Inserted saline lock: 18 gauge in left antecubital area, using aseptic technique. la1 10:36 CT completed. Patient tolerated procedure well. Patient moved back from CT. bq 10:40 CT Abd/Pelvis - IV Contrast Only In Process Unspecified. EDMS 12:14 No provider procedures requiring assistance completed. IV discontinued, intact, aj1 bleeding controlled, No redness/swelling at site. Pressure dressing applied. Administered Medications: 10:18 Drug: NS 0.9% 1000 ml Route: IV; Rate: 1000 ml; Site: left antecubital; la1 10:18 Drug: Zofran 4 mg Route: IVP; Site: left antecubital; la1 12:01 Follow up: Response: No adverse reaction aj1 10:18 Drug: morphine 4 mg Route: IVP; Site: left antecubital; la1 12:01 Follow up: Response: No adverse reaction; RASS: Alert and Calm (0) aj1 11:55 Drug: morphine 4 mg {Note: RASS score 0 patient is alert.} Route: IVP; Site: left aj1 antecubital; 12:13 Follow up: Response: No adverse reaction; Pain is decreased; RASS: Alert and Calm (0) aj1 12:13 Drug: GI Cocktail without - (Maalox Suspension 30 ml, Lidocaine Liquid 2 % 15 aj1 ml) Route: PO; 12:13 Follow up: Response: No adverse reaction aj1 Outcome: 11:56 Discharge ordered by MD. pm1 12:14 Discharged to home via wheelchair. aj1 12:14 Condition: good 12:14 Discharge instructions given to patient, Instructed on discharge instructions, follow up and referral plans. medication usage, Demonstrated understanding of instructions, follow-up care, medications, Prescriptions given X 2. 12:23 Patient left the ED. aj1 Signatures: Dispatcher [employer] EDMS Kelli Bartholomew, RN RN aj1 Debra Ulrich Amelia as Attema, Lee, RN RN la1 Danny Valle, CARI [employer] TEACHER pm1 Diamante Cook1
--- NOTE | 2019-09-06 11:57 | EDPHYS ---
Physician Documentation [facility] Name: Leila Stein Age: 58 yrs Sex: Female : 1960 Arrival Date: 09/06/2019 Time: 09:22 Bed 5 Private MD: ED Physician Denzel Sharma HPI: 09/06 10:24 This 58 yrs old Black Female presents to ER via Ambulatory with complaints of Abdominal pm1 Pain. 10:24 The patient presents with abdominal pain in the epigastric area, and left flank. Onset: pm1 The symptoms/episode began/occurred 3 day(s) ago. The symptoms do not radiate. Associated signs and symptoms: Pertinent positives: nausea and vomiting, Pertinent negatives: constipation, diarrhea, dysuria, fever. The symptoms are described as sharp. Modifying factors: The symptoms are alleviated by nothing, the symptoms are aggravated by touching the area. Severity of pain: in the emergency department the pain is actually worse. The patient has experienced similar episodes in the past, multiple times. The patient has not recently seen a physician. Historical: - Allergies: 09:36 Demerol; la1 09:36 Diphenhydramine; la1 09:36 Ibuprofen; la1 09:36 Kenalog; la1 09:36 levabid; la1 09:36 Levaquin; la1 09:36 Naloxone; la1 09:36 Norepinephrine Bitartrate; la1 09:36 Penbutolol; la1 09:36 PENICILLINS; la1 09:36 PENTAZOCINE; la1 09:36 Talwin; la1 09:36 Tape; la1 09:36 Triamcinolone Acetonide; la1 - Home Meds: 09:42 hydroxyzine HCl 25 mg Oral tab 1 tab every 4-6 hrs as needed [Active]; carvedilol 6.25 la1 mg Oral tab 1 tab 2 times per day [Active]; gabapentin 100 mg Oral cap 2 caps bid [Active]; sertraline 50 mg Oral tab 1 tab once daily [Active]; metoclopramide HCl 10 mg Oral tab 1 tab twice a day [Active]; losartan 100 mg Oral tab 1 tab once daily [Active]; meclizine 12.5 mg Oral tab 2 tabs 3 times per day [Active]; omeprazole 40 mg Oral cpDR 1 cap once daily [Active]; risperidone 1 mg oral tab 1 tab once daily [Active]; furosemide 40 mg Oral tab 1 tab once daily [Active]; montelukast 10 mg Oral tab 1 tab once daily [Active]; Creon 24,000-76,000 -120,000 unit Oral cpDR [Active]; methocarbamol 750 mg Oral tab 1 tab every 8 hours [Active]; alprazolam 0.5 mg oral tab [Active]; - PMHx: 09:36 CHF; CVA; Hypertension; Myocardial infarction; Pancreatitis; la1 - Immunization history:: Adult Immunizations up to date. - Social history:: Smoking status: Patient/guardian denies using tobacco. - Ebola Screening: : No symptoms or risks identified at this time. ROS: 10:24 Constitutional: Negative for fever, chills, and weight loss, Eyes: Negative for injury, pm1 pain, redness, and discharge, ENT: Negative for injury, pain, and discharge, Neck: Negative for injury, pain, and swelling, Cardiovascular: Negative for chest pain, palpitations, and edema, Respiratory: Negative for shortness of breath, cough, wheezing, and pleuritic chest pain. 10:24 Back: Negative for injury and pain, : Negative for injury, bleeding, discharge, and swelling, MS/Extremity: Negative for injury and deformity, Skin: Negative for injury, rash, and discoloration, Neuro: Negative for headache, weakness, numbness, tingling, and seizure. 10:24 Abdomen/GI: Positive for abdominal pain, nausea and vomiting, Negative for diarrhea, constipation. Exam: 10:24 Constitutional: This is a well developed, well nourished patient who is awake, alert, pm1 and in no acute distress. Head/Face: Normocephalic, atraumatic. Neck: Trachea midline, no thyromegaly or masses palpated, and no cervical lymphadenopathy. Supple, full range of motion without nuchal rigidity, or vertebral point tenderness. No Meningismus. Chest/axilla: Normal chest wall appearance and motion. Nontender with no deformity. No lesions are appreciated. Cardiovascular: Regular rate and rhythm with a normal S1 and S2. No gallops, murmurs, or rubs. Normal PMI, no JVD. No pulse deficits. Respiratory: Lungs have equal breath sounds bilaterally, clear to auscultation and percussion. No rales, rhonchi or wheezes noted. No increased work of breathing, no retractions or nasal flaring. 10:24 Back: No spinal tenderness. No costovertebral tenderness. Full range of motion. Skin: Warm, dry with normal turgor. Normal color with no rashes, no lesions, and no evidence of cellulitis. MS/ Extremity: Pulses equal, no cyanosis. Neurovascular intact. Full, normal range of motion. 10:24 Abdomen/GI: Inspection: obese Bowel sounds: normal, Palpation: soft, mild abdominal tenderness, in the abdomen diffusely, mass, is not appreciated, rebound tenderness, is not appreciated. 10:24 Back: pain, that is mild, of the left low back. 10:24 Neuro: Orientation: is normal, Motor: is normal, moves all fours. Vital Signs: 09:35 BP 139 / 71; Pulse 84; Resp 16; Temp 98.1; Pulse Ox 100% on R/A; Weight 90.72 kg; la1 Height 5 ft. 1 in. (154.94 cm); 12:14 BP 142 / 75; Pulse 88; Resp 18; Pulse Ox 97% on R/A; aj1 09:35 Body Mass Index 37.79 (90.72 kg, 154.94 cm) la1 MDM: 09:26 Patient medically screened. [facility] 10:27 Data reviewed: vital signs. Data interpreted: Pulse oximetry: on room air is 100 %. pm1 Interpretation: normal. 11:56 Counseling: I had a detailed discussion with the patient and/or guardian regarding: the pm1 historical points, exam findings, and any diagnostic results supporting the discharge/admit diagnosis, lab results, radiology results, the need for outpatient follow up, to return to the emergency department if symptoms worsen or persist or if there are any questions or concerns that arise at home. 09/06 09:34 Order name: Basic Metabolic Panel; Complete Time: 10: pm1 09/06 09:34 Order name: CBC with Diff; Complete Time: 10: pm1 09/06 09:34 Order name: Creatinine for Radiology; Complete Time: 10: pm1 09/06 09:34 Order name: Hepatic Function; Complete Time: 10: pm1 09/06 09:34 Order name: Lipase; Complete Time: 10: pm1 09/06 11:19 Order name: Urine Dipstick--Ancillary (enter results); Complete Time: 12:41 em1 09/06 09:34 Order name: IV Saline Lock; Complete Time: 10:11 pm1 09/06 09:34 Order name: Labs collected and sent; Complete Time: 10:11 pm1 09/06 09:34 Order name: CT Abd/Pelvis - IV Contrast Only; Complete Time: 11:01 pm1 Administered Medications: 10:18 Drug: NS 0.9% 1000 ml Route: IV; Rate: 1000 ml; Site: left antecubital; la1 10:18 Drug: Zofran 4 mg Route: IVP; Site: left antecubital; la1 12:01 Follow up: Response: No adverse reaction aj1 10:18 Drug: morphine 4 mg Route: IVP; Site: left antecubital; la1 12:01 Follow up: Response: No adverse reaction; RASS: Alert and Calm (0) aj1 11:55 Drug: morphine 4 mg {Note: RASS score 0 patient is alert.} Route: IVP; Site: left aj1 antecubital; 12:13 Follow up: Response: No adverse reaction; Pain is decreased; RASS: Alert and Calm (0) aj1 12:13 Drug: GI Cocktail without - (Maalox Suspension 30 ml, Lidocaine Liquid 2 % 15 aj1 ml) Route: PO; 12:13 Follow up: Response: No adverse reaction aj1 Disposition: 09/06/19 11:56 Discharged to Home. Impression: Unspecified abdominal pain. - Condition is Stable. - Discharge Instructions: Abdominal Pain, Adult, Gastritis, Adult. - Prescriptions for Bentyl 20 mg Oral Tablet - take 1 tablet by ORAL route every 6 hours As needed; 20 tablet. promethazine 25 mg Oral Tablet - take 1 tablet by ORAL route every 6 hours As needed; 20 tablet. - Medication Reconciliation Form, Thank You Letter, Antibiotic Education, Prescription Opioid Use form. - Follow up: Emergency Department; When: As needed; Reason: Worsening of condition. Follow up: Private Physician; When: 2 - 3 days; Reason: Recheck today's complaints, Continuance of care, Re-evaluation by your physician. - Problem is new. - Symptoms have improved. Addendum: 09/08/2019 07:02 Co-signature as Attending Physician, Denzel Sharma MD I agree with the assessment and c pérez plan of care. PA/POLY P[employer]ER AND HE[employer] SEALER's history reviewed, patient interviewed, and examined. Signatures: Dispatcher [employer] Kelli Cazares, AMAURY RN aj1 Denzel Sharma MD MD cha Attema, Lee RN RN la1 Danny Valle, [employer]ER [employer] AND [employer] SEALER pm1 Corrections: (The following items were deleted from the chart) 09/06 12:23 11:56 09/06/2019 11:56 Discharged to Home. Impression: Unspecified abdominal pain. aj1 Condition is Stable. Forms are Medication Reconciliation Form, Thank You Letter, Antibiotic Education, Prescription Opioid Use. Follow up: Emergency Department; When: As needed; Reason: Worsening of condition. Follow up: Private Physician; When: 2 - 3 days; Reason: Recheck today's complaints, Continuance of care, Re-evaluation by your physician. Problem is new. Symptoms have improved. pm1
[2019-09-06] MEDS ORDERED: MAGNE/ALUM HYDROXD 30 ML UCUP ONE (12:05)
[2019-09-06] MEDS ORDERED: LIDOCAINE VISCOUS 2% SOLN 15 ML UDC ONE (12:06)
[2019-09-06 12:15] LABS: Urine Blood NEGATIVE (NEG); Urine Glucose NEGATIVE (NEG); Urine Protein NEGATIVE (NEG)
[2019-09-06 12:28] VITALS: TEMP 98.1
[2019-09-06 12:30] VITALS: BP 142/75; O2SAT 97
== END 2019-09-06 12:23 | disposition home or self-care (01) ==
LOC: ER 09:20
DX: R10.9 Unspecified abdominal pain (principal); I10 Essential (primary) hypertension; I50.9 Heart failure, unspecified; I25.2 Old myocardial infarction; Z88.0 Allergy status to penicillin; Z88.5 Allergy status to narcotic agent; Z88.6 Allergy status to analgesic agent; Z88.8 Allergy status to other drugs, medicaments and biological substances; Z86.73 Personal history of transient ischemic attack (TIA), and cerebral infarction without residual deficits; Z91.048 Other nonmedicinal substance allergy status
CPT/HCPCS: 85025; 80048; 36415; 80076; 81003; 83690; 74177; 96375; 96374; 99284; Q9967; J7040; J2405

== ENCOUNTER 2020-12-02 11:59 | Emergency (ER) | payer OTHER ==
[2020-12-02 16:28] LABS: Urine Blood NEGATIVE (NEG); Urine Glucose NEGATIVE (NEG); Urine Protein NEGATIVE (NEG)
[2020-12-02] MEDS ORDERED: MORPHINE 4 MG/ML SYR ONE ×2 (16:57→18:41)
[2020-12-02] MEDS ORDERED: ONDANSETRON 4 MG/2 ML VIAL ONE ×2 (16:57→18:41)
[2020-12-02 17:09] LABS: Absolute Lymphocytes (CBC) 6.3 K/uL (0.7-4.9); Basophils % 0.4 % (0-1.3); Hematocrit 35.9 % (36.0-45.0); Lymphocytes % 33.2 % (15.3-44.8); MPV 8.6 fL (7.6-11.3)
[2020-12-02 17:22] LABS: Urine Bacteria <20 /HPF (<20); Urine RBC <5 /HPF (NONE SEEN)
[2020-12-02 17:27] LABS: ALT/SGPT 13 U/L (12-78); AST/SGOT 13 U/L (15-37); Albumin 3.1 g/dL (3.4-5.0); Alkaline Phosphatase 150 U/L (45-117); BUN Blood Urea Nitrogen 6 mg/dL (7-18); Bicarbonate 26 mmol/L (21-32); Bilirubin Direct < 0.1 mg/dL (0-0.2); Bilirubin Total 0.3 mg/dL (0.2-1.0); Glucose Level 98 mg/dL (74-106); Lipase 257 U/L (73-393); Potassium 3.9 mmol/L (3.5-5.1); Protein, Total 8.5 g/dL (6.4-8.2); Sodium Level 142 mmol/L (136-145)
--- NOTE | 2020-12-02 18:02 | RAD REPORT ---
EXAM DESCRIPTION: RAD - Chest Single View - 12/02/2020 5:38 pm CLINICAL HISTORY: ABDOMINAL DISTENTION Chest pain. COMPARISON: Chest Single View dated 10/23/2018; Chest Single View dated 12/17/2017; Chest Pa And Lat (2 Views) dated 08/08/2017; CHEST PA AND LAT 2 VIEW dated 06/14/2015 FINDINGS: Portable technique limits examination quality. The lungs are grossly clear. The heart is normal in size. No displaced fractures. IMPRESSION: No acute intrathoracic process suspected.
--- NOTE | 2020-12-02 18:17 | RAD REPORT ---
EXAM DESCRIPTION: CTAbdomen Pelvis W Contrast - 12/02/2020 6:05 pm CLINICAL HISTORY: Abdominal pain. ABD PAIN COMPARISON: Abdomen Pelvis W Contrast dated 09/06/2019; Abdomen Pelvis W Contrast dated 10/23/2018 ; Abdomen Pelvis W Contrast dated 03/19/2018; Abdomen Pelvis W Contrast dated 03/06/2018 TECHNIQUE: Biphasic CT imaging of the abdomen and pelvis was performed with 100 ml non-ionic IV cont rast. All CT scans are performed using dose optimization technique as appropriate and may include automated exposure control or mA/KV adjustment according to patient size. FINDINGS: Linear subsegmental atelectasis is present in the left lung base. The liver, spleen, pancreas, adrenal glands and kidneys are within normal limits. No bowel obstruction, free air, free fluid or abscess. Cholecystectomy. Appendectomy. No evidence of significant lymphadenopathy. No suspicious bony findings. IMPRESSION: No acute intra-abdominal or pelvic finding.
--- NOTE | 2020-12-02 19:42 | EDPHYS ---
Physician Documentation [facility] Name: Leila Stein Age: 60 yrs Sex: Female : 1960 Arrival Date: 12/02/2020 Time: 12:05 Bed 20 Private MD: ED Physician Flavio Mcgill HPI: 12/02 16:15 This 60 yrs old Black Female presents to ER via Ambulatory with complaints of Abdominal cp Pain, Nausea. 16:15 The patient presents with abdominal pain that is diffuse. cp 16:15 Onset: The symptoms/episode began/occurred last night. The symptoms do not radiate. cp 16:15 Associated signs and symptoms: Pertinent positives: nausea, vomiting, and diarrhea, cp Pertinent negatives: blood in stools, chest pain, constipation, dysuria, fever, vomiting blood. Patient reports pain similar to when diagnosed with pancreatitis. Historical: - Allergies: 12:42 Diphenhydramine; ll1 12:42 Ibuprofen; ll1 12:42 Kenalog; ll1 12:42 levabid; ll1 12:42 Levaquin; ll1 12:42 Naloxone; ll1 12:42 Norepinephrine Bitartrate; ll1 12:42 Penbutolol; ll1 12:42 PENICILLINS; ll1 12:42 PENTAZOCINE; ll1 12:42 Talwin; ll1 12:42 Tape; ll1 12:42 Triamcinolone Acetonide; ll1 12:42 Demerol; ll1 - PMHx: 12:42 CVA; CHF; Hypertension; Myocardial infarction; Pancreatitis; ll1 - PSHx: 12:42 Cholecystectomy; Hysterectomy; Appendectomy; ll1 - Immunization history:: Flu vaccine is not up to date. - Social history:: Smoking status: Patient reports the use of cigarette tobacco products, denies chronic smoking, but will smoke occasionally. ROS: 16:20 Constitutional: Negative for body aches, chills, fever. cp 16:20 Eyes: Negative for injury, pain, redness, and discharge. cp 16:20 Cardiovascular: Negative for edema, palpitations. 16:20 Respiratory: Negative for cough, shortness of breath, wheezing. 16:20 Abdomen/GI: Positive for abdominal pain, nausea, vomiting, and diarrhea, Negative for constipation, hematemesis, black/tarry stool, rectal bleeding. 16:20 Back: Negative for pain at rest, pain with movement. 16:20 : Negative for urinary symptoms. 16:20 Neuro: Negative for altered mental status, headache, weakness. 16:20 All other systems are negative. Exam: 16:25 Constitutional: The patient appears in no acute distress, alert, awake, cp non-diaphoretic, non-toxic, well developed, well nourished, uncomfortable. 16:25 Head/Face: Normocephalic, atraumatic. cp 16:25 Eyes: Periorbital structures: appear normal, Conjunctiva: normal, no exudate, no injection, Sclera: no appreciated abnormality, Lids and lashes: appear normal, bilaterally. 16:25 ENT: External ear(s): are unremarkable, Nose: is normal, Mouth: Lips: moist, Oral mucosa: moist, Posterior pharynx: Airway: no evidence of obstruction, patent. 16:25 Neck: ROM/movement: is normal, is supple, without pain, no range of motions limitations. 16:25 Chest/axilla: Inspection: normal, Palpation: is normal, no crepitus, no tenderness. 16:25 Cardiovascular: Rate: normal, Rhythm: regular, Edema: is not appreciated, JVD: is not appreciated. 16:25 Respiratory: the patient does not display signs of respiratory distress, Respirations: normal, no use of accessory muscles, no retractions, labored breathing, is not present, Breath sounds: are clear throughout, no decreased breath sounds, no stridor, no wheezing. 16:25 Abdomen/GI: Inspection: abdomen appears normal, Bowel sounds: active, all quadrants, Palpation: soft, in all quadrants, severe abdominal tenderness, in all quadrants. 16:25 Back: CVA tenderness, is absent. 16:25 Skin: cellulitis, is not appreciated, no rash present. 16:25 Neuro: Orientation: to person, place \T\ time. Mentation: is normal. Vital Signs: 12:42 BP 136 / 85; Pulse 72; Resp 16; Temp 97.1; Pulse Ox 98% ; Weight 90.72 kg; Height 5 ft. ll1 2 in. (157.48 cm); Pain 10/10; 17:03 BP 129 / 72; Pulse 66; Resp 18; Pulse Ox 96% on R/A; ph 18:39 BP 127 / 83; Pulse 67; Resp 18; Pulse Ox 97% on R/A; ph 12:42 Body Mass Index 36.58 (90.72 kg, 157.48 cm) ll1 MDM: 16:05 Patient medically screened. cp 17:00 Differential diagnosis: bowel obstruction, diverticulitis, non-specific abd pain, cp pancreatitis, Ureterolithiasis, urinary tract infection, colitis, gastritis. 19:42 Data reviewed: vital signs, nurses notes, lab test result(s), radiologic studies, CT cp scan. 19:42 Counseling: I had a detailed discussion with the patient and/or guardian regarding: the cp historical points, exam findings, and any diagnostic results supporting the discharge/admit diagnosis, lab results, radiology results, to return to the emergency department if symptoms worsen or persist or if there are any questions or concerns that arise at home. Response to treatment: the patient's symptoms have markedly improved after treatment. Special discussion: Based on the patient's Hx, exam, and Dx evaluation, there is no indication for emergent surgery or inpatient Tx. It is understood by the patient/guardian that if the Sx's persist or worsen they need to return immediately for re-evaluation. ED course: VSS. Pain and nausea markedly improved. Vomiting resolved. CT abdomen/pelvis negative for acute findings. Will discharge to home for continued monitoring. 12/02 16:11 Order name: Urine Dipstick--Ancillary (enter results) eb 12/02 16:11 Order name: Urine Dipstick-Ancillary EDMS 12/02 16:14 Order name: Basic Metabolic Panel cp 12/02 16:14 Order name: CBC with Diff cp 12/02 16:14 Order name: Hepatic Function; Complete Time: 18:20 cp 12/02 19:20 Interpretation: Normal except: AST 13; ALK 150; TP 8.5; ALB 3.1; GLOB 5.4; A/G 0.6. cp 12/02 16:14 Order name: Lipase; Complete Time: 18:20 cp 12/02 16:14 Order name: Lactate; Complete Time: 18:20 cp 12/02 16:14 Order name: Magnesium; Complete Time: 18:20 cp 12/02 16:14 Order name: XRAY Chest (1 view); Complete Time: 18:20 cp 12/02 16:14 Order name: Urine Microscopic Only; Complete Time: 18:20 12/02 16:14 Order name: Basic Metabolic Panel; Complete Time: 18:20 EDMS 12/02 19:23 Interpretation: Normal except: CL 108; BUN 6; GFR 77. cp 02 16:15 Order name: CT Abd/Pelvis - IV Contrast Only; Complete Time: 18:20 12/02 18:31 Interpretation: Report reviewed. 02 16:15 Order name: CBC with Automated Diff; Complete Time: 18:20 EDMS 12/02 19:20 Interpretation: Normal except: WBC 18.90; RBC 5.00; HGB 11.1; HCT 35.9; MCV 71.8; MCH cp 22.2; MCHC 30.9; PLT 476; RDW 16.5; NEUT A 10.9; LYMA 6.3; MNA 1.5. 02 16:14 Order name: IV Saline Lock; Complete Time: 17:12 12/02 16:14 Order name: Labs collected and sent; Complete Time: 17:12 12/02 19:23 Order name: PO challenge; Complete Time: 19:25 cp Administered Medications: 17:11 Drug: Zofran (Ondansetron) 4 mg Route: IVP; Site: left upper arm; ph 17:30 Follow up: Response: No adverse reaction; Nausea is decreased ph 17:12 Drug: morphine 4 mg Route: IVP; Site: left upper arm; ph 17:30 Follow up: Response: No adverse reaction; Pain is decreased ph 18:35 Drug: morphine 4 mg Route: IVP; Site: left upper arm; ph 18:49 Follow up: Response: No adverse reaction; Pain is decreased; RASS: Alert and Calm (0) ph 18:35 Drug: Zofran (Ondansetron) 4 mg Route: IVP; Site: left upper arm; ph 18:49 Follow up: Response: No adverse reaction ph 20:20 Drug: metroNIDAZOLE 500 mg Route: PO; ll2 20:20 Drug: Bactrim (160 mg-800 mg (DS) 1 tablet Route: PO; ll2 Disposition: 12/02/20 19:42 Discharged to Home. Impression: Diarrhea, unspecified, Nausea and vomiting. - Condition is Stable. - Discharge Instructions: Food Choices to Help Relieve Diarrhea, Adult, Diarrhea, Adult, Nausea and Vomiting, Adult. - Prescriptions for Bentyl 20 mg Oral Tablet - take 2 tablet by ORAL route every 6 hours As needed; 40 tablet. Zofran 4 mg Oral Tablet - take 1 tablet by ORAL route every 12 hours As needed; 20 tablet. Metronidazole 500 mg Oral Tablet - take 1 tablet by ORAL route every 8 hours; 30 tablet. Bactrim DS 800- 160 mg Oral Tablet - take 1 tablet by ORAL route every 12 hours for 7 days; 14 tablet. - Medication Reconciliation Form, Thank You Letter, Antibiotic Education, Prescription Opioid Use form. - Follow up: Jacinto Florez MD; When: 2 - 3 days; Reason: Recheck today's complaints. - Problem is new. - Symptoms have improved. Addendum: 12/04/2020 14:35 Co-signature as Attending Physician, Flavio Mcgill MD I agree with the assessment and k dr plan of care. Signatures: Dispatcher [employer] EDNC Flavio Mcgill MD MD [facility] Argelia Ware RN RN ph Denzel Crain PA PA cp Jessica Martinez RN RN ll2 Ana Laura Emery RN RN ll1 Corrections: (The following items were deleted from the chart) 12/02 20:21 19:42 12/02/2020 19:42 Discharged to Home. Impression: Diarrhea, unspecified; Nausea ll2 and vomiting. Condition is Stable. Forms are Medication Reconciliation Form, Thank You Letter, Antibiotic Education, Prescription Opioid Use. Follow up: Jacinto Florez; When: 2 - 3 days; Reason: Recheck today's complaints. Problem is new. Symptoms have improved. cp
--- NOTE | 2020-12-02 19:42 | ER ---
Nurse's Notes [facility] Name: Leila Stein Age: 60 yrs Sex: Female : 1960 Arrival Date: 12/02/2020 Time: 12:05 Bed 20 Private MD: Diagnosis: Diarrhea, unspecified;Nausea and vomiting Presentation: 12/02 12:42 Chief complaint: Patient states: Abd pain with N/V/D since last night. States she ll1 believes its pancreatitis again. No fever. Coronavirus screen: Client denies travel out of the [place] in the last 14 days. At this time, the client does not indicate any symptoms associated with coronavirus-19. Ebola Screen: Patient denies travel to an Ebola-affected area in the 21 days before illness onset. Initial Sepsis Screen: Does the patient meet any 2 criteria? No. Patient's initial sepsis screen is negative. Does the patient have a suspected source of infection? No. Patient's initial sepsis screen is negative. Risk Assessment: Do you want to hurt yourself or someone else? Patient reports no desire to harm self or others. Onset of symptoms was December 01, 2020. 12:42 Method Of Arrival: Ambulatory ll1 12:42 Acuity: JARROD 3 ll1 Historical: - Allergies: 12:42 Diphenhydramine; ll1 12:42 Ibuprofen; ll1 12:42 Kenalog; ll1 12:42 levabid; ll1 12:42 Levaquin; ll1 12:42 Naloxone; ll1 12:42 Norepinephrine Bitartrate; ll1 12:42 Penbutolol; ll1 12:42 PENICILLINS; ll1 12:42 PENTAZOCINE; ll1 12:42 Talwin; ll1 12:42 Tape; ll1 12:42 Triamcinolone Acetonide; ll1 12:42 Demerol; ll1 - PMHx: 12:42 CVA; CHF; Hypertension; Myocardial infarction; Pancreatitis; ll1 - PSHx: 12:42 Cholecystectomy; Hysterectomy; Appendectomy; ll1 - Immunization history:: Flu vaccine is not up to date. - Social history:: Smoking status: Patient reports the use of cigarette tobacco products, denies chronic smoking, but will smoke occasionally. Screenin:02 Abuse screen: Denies threats or abuse. Denies injuries from another. Nutritional ph screening: No deficits noted. Tuberculosis screening: No symptoms or risk factors identified. Fall Risk None identified. Assessment: 16:10 General: Appears in no apparent distress. comfortable, well groomed, Behavior is calm, ph cooperative, appropriate for age, Denies fever. Pain: Complains of pain in right upper quadrant and left upper quadrant. Neuro: Level of Consciousness is awake, alert, obeys commands, Oriented to person, place, time, situation. Cardiovascular: Capillary refill < 3 seconds in bilateral fingers Patient's skin is warm and dry. Respiratory: Airway is patent Respiratory effort is even, unlabored, Respiratory pattern is regular, symmetrical. GI: Abdomen is round Reports upper abdominal pain, diarrhea, nausea, vomiting. : No signs and/or symptoms were reported regarding the genitourinary system. Derm: Skin is intact, is healthy with good turgor, Skin is pink, warm \T\ dry. Musculoskeletal: Circulation, motion, and sensation intact. Range of motion: intact in all extremities. 18:37 Reassessment: Patient appears in no apparent distress at this time. Patient and/or ph family updated on plan of care and expected duration. Pain level reassessed. Patient is alert, oriented x 3, equal unlabored respirations, skin warm/dry/pink. Pt resting quietly w/ stable vitals, c/o abdominal pain and nausea, states that previous medication helped symptoms but that they have returned, ERP notified, see MAR. Vital Signs: 12:42 BP 136 / 85; Pulse 72; Resp 16; Temp 97.1; Pulse Ox 98% ; Weight 90.72 kg; Height 5 ft. ll1 2 in. (157.48 cm); Pain 10/10; 17:03 BP 129 / 72; Pulse 66; Resp 18; Pulse Ox 96% on R/A; ph 18:39 BP 127 / 83; Pulse 67; Resp 18; Pulse Ox 97% on R/A; ph 12:42 Body Mass Index 36.58 (90.72 kg, 157.48 cm) ll1 ED Course: 12:05 Patient arrived in ED. ds1 12:41 Arm band placed on. ll1 12:43 Triage completed. ll1 14:55 Initial lab(s) drawn, by me, sent to lab. Inserted saline lock: 24 gauge in left upper ph arm, using aseptic technique. Blood collected. 15:10 Denzel Crain PA is PHCP. cp 15:10 Flavio Mcgill MD is Attending Physician. cp 16:02 Argelia Ware RN is Primary Nurse. ph 16:02 Patient has correct armband on for positive identification. Bed in low position. Call ph light in reach. Side rails up X 1. Pulse ox on. NIBP on. Door closed. Noise minimized. Warm blanket given. 17:38 XRAY Chest (1 view) In Process Unspecified. EDMS 18:05 CT Abd/Pelvis - IV Contrast Only In Process Unspecified. EDMS 19:39 Primary Nurse role handed off by Argelia Ware RN mw2 19:41 Jacinto Florez MD is Referral Physician. cp 20:00 Jessica Martinez RN is Primary Nurse. ll2 Administered Medications: 17:11 Drug: Zofran (Ondansetron) 4 mg Route: IVP; Site: left upper arm; ph 17:30 Follow up: Response: No adverse reaction; Nausea is decreased ph 17:12 Drug: morphine 4 mg Route: IVP; Site: left upper arm; ph 17:30 Follow up: Response: No adverse reaction; Pain is decreased ph 18:35 Drug: morphine 4 mg Route: IVP; Site: left upper arm; ph 18:49 Follow up: Response: No adverse reaction; Pain is decreased; RASS: Alert and Calm (0) ph 18:35 Drug: Zofran (Ondansetron) 4 mg Route: IVP; Site: left upper arm; ph 18:49 Follow up: Response: No adverse reaction ph 20:20 Drug: metroNIDAZOLE 500 mg Route: PO; ll2 20:20 Drug: Bactrim (160 mg-800 mg (DS) 1 tablet Route: PO; ll2 Intake: 17:00 IV: 500ml; Total: 500ml. ph 17:30 IV: 500ml; Total: 1000ml. ph Outcome: 19:42 Discharge ordered by . cp 20:21 Patient left the ED. ll2 Signatures: Dispatcher [employer] EDWI Gauri Lovelace ds1 Argelia Ware RN RN ph Denzel Crain PA PA cp Greg Burgess mw2 Jessica Martinez RN RN ll2 Rupert, Lynsay, RN RN ll1
[2020-12-02] MEDS ORDERED: SMZ./TMP. 800/160 MG TABLET ONE (20:31)
[2020-12-02] MEDS ORDERED: metroNIDAZOLE 500 MG TABLET ONE (20:31)
[2020-12-02 20:49] VITALS: TEMP 97.1
[2020-12-02 20:52] VITALS: BP 127/83; O2SAT 97
== END 2020-12-02 20:21 | disposition home or self-care (01) ==
LOC: ER 11:59
DX: R19.7 Diarrhea, unspecified (principal); I10 Essential (primary) hypertension; I50.9 Heart failure, unspecified; I25.2 Old myocardial infarction; Z86.73 Personal history of transient ischemic attack (TIA), and cerebral infarction without residual deficits; F17.210 Nicotine dependence, cigarettes, uncomplicated; Z88.0 Allergy status to penicillin; Z88.1 Allergy status to other antibiotic agents; Z88.5 Allergy status to narcotic agent; Z88.6 Allergy status to analgesic agent; Z88.8 Allergy status to other drugs, medicaments and biological substances; Z91.048 Other nonmedicinal substance allergy status
CPT/HCPCS: 85025; 80048; 36415; 83735; 80076; 83605; 83690; 74177; 71045; 96375; 96374; 99284; Q9967; J2405 ×2; 81003; 81015

== ENCOUNTER 2021-01-05 19:41 | Inpatient (IN) | payer OTHER ==
--- OUTSIDE RECORDS SUMMARY | 2021-01-05 19:45 | XMS REPORT | Continuity of Care Document ---
:1960 Author Organization [facility] t Address [address] Slaughter. [address] [place] [address] Support Name Relationship Address Phone [facility] 911 TELECOMMUNICATOR Primary Care Physician [address] [phone] [place] [address] RULA KIDD MD Admitting Provider [address] [phone] 11 [place] [address] RULA KIDD MD Attending Provider [address] [phone] 11 [place] [address] DINO CHAPPELL, A Emergency Provider [address] [address] TANYA Next of Kin [address] [place] [address] MIKIE CHAPPELL, E Emergency Provider [address] [facility] [address] [place] [address] SHAMAR CHAPPELL, L Emergency Provider [address] [place] [address] DAPHNE CHAPPELL Attending Provider [address] [place] [address] JANICE CHAPPELL, M Emergency Provider [address] [place] [address] OUTTEN DO Emergency Provider [address] [place] [address] JAIRO CHAPPELL, C Emergency Provider [address] [facility] [phone] [place] [address] MALENA CHAPPELL MD R Emergency Provider [address] [phone] [place] [address] DO ADAN LEOS Primary Care Physician [address] [phone] [place] [address] MD ADRI Emergency Provider Unavailable Unavailable MD RENÉ A Emergency Provider [facility] [place] [address] DO NIEVES Emergency Provider [address] [facility] [email or web address] [address] JERARDO RODRIGUES MD Emergency Provider [address] [phone] 98 [place] [address] Care Team Providers Name Role Phone Unavailable Unavailable Unavailable Problems This patient has no known problems. Allergies, Adverse Reactions, Alerts This patient has no known allergies or adverse reactions. Social History Smoking Status Start Date Stop Date Source Never Smoker [facility] Medications Ordered Filled Start Stop Current Ordering Indication Dosage Frequency Signature Comments Components Source Medication Medication Date Date Medication? Clinician (SIG) Name Name Bev Pablo No Bev [facility] 24,000-76,0 24,000-76,0 24,000-76, da 00-120,000 00-120,000 000-120,00 [facility] unit unit 0 unit al capsule,del capsule,del capsule,de Health ayed ayed layed Outreac release release release h Program cyclobenzap cyclobenzap No cyclobenza [facility] rine 5 mg rine 5 mg brandi 5 mg da tablet tablet tablet [facility] Program diclofenac diclofenac No diclofenac [facility] 1 % topical 1 % topical 1 % d a gel APPLY 2 gel APPLY 2 topical [facility] GRAMS TO GRAMS TO gel APPLY al THE THE 2 GRAMS TO Health AFFECTED AFFECTED THE Outreac AREA(S) BY AREA(S) BY AFFECTED h TOPICAL TOPICAL AREA(S) BY Pro gram ROUTE 4 ROUTE 4 TOPICAL TIMES PER TIMES PER ROUTE 4 DAY DAY TIMES PER DAY dicyclomine dicyclomine No dicyclomin [facility] 20 mg 20 mg e 20 mg da tablet TAKE tablet TAKE tablet [facility] ONE (1) ONE (1) TAKE ONE al TABLET(S) TABLET(S) (1) Healt h BY MOUTH BY MOUTH TABLET(S) Ou treac EVERY DAY EVERY DAY BY MOUTH h NEEDED. NEEDED. EVERY DAY Program NEEDED. estradiol estradiol No estradiol [facility] 0.075 mg/24 0.075 mg/24 0.075 da hr weekly hr weekly mg/24 hr E [facility] transdermal transdermal weekly al patch APPLY patch APPLY [facility] ONE PATCH ONE PATCH l patch Ou treac TOPICALLY TOPICALLY APPLY ONE h EVERY WEEK. EVERY WEEK. PATCH Program TOPICALLY EVERY WEEK. famotidine famotidine No famotidine [facility] 20 mg 20 mg 20 mg da tablet TAKE tablet TAKE tablet [facility] ONE (1) ONE (1) TAKE ONE al TABLET(S) TABLET(S) (1) Healt h BY MOUTH BY MOUTH TABLET(S) [facility] TWICE A TWICE A BY MOUTH h DAY. DAY. TWICE A Program DAY. Flucelvax Flucelvax No Flucelvax [facility] Quad Quad Quad da [facility] 60 mcg (15 60 mcg (15 60 mcg (15 al mcg x mcg x mcg x Health 4)/0.5 mL 4)/0.5 mL 4)/0.5 mL Outre[facility] IM IM IM h suspension suspension suspension Program furosemide furosemide No furosemide [facility] 40 mg 40 mg 40 mg da tablet TAKE tablet TAKE tablet [facility] ONE (1) ONE (1) TAKE ONE al TABLET(S) TABLET(S) (1) Healt h BY MOUTH BY MOUTH TABLET(S) [facility] ONCE A DAY ONCE A DAY BY MOUTH h IN THE IN THE ONCE A DAY Progr am MORNING. MORNING. IN THE MORNING. gabapentin gabapentin No gabapentin [facility] 100 mg 100 mg 100 mg da capsule capsule capsule [facility] TAKE TWO TAKE TWO TAKE TWO al (2) (2) (2) Health CAPSULE(S) CAPSULE(S) CAPSULE(S) [facility]re[facility] BY MOUTH BY MOUTH BY MOUTH h TWICE A DAY TWICE A DAY TWICE A Program DAY DIRECTED. DIRECTED. DIRECTED. hydrocodone hydrocodone No hydrocodon [facility] 10 10 e 10 da mg-acetamin mg-acetamin mg-acetami [facility] ophen 325 ophen 325 nophen 325 al mg tablet mg tablet mg tablet Health TAKE ONE TAKE ONE TAKE ONE Out reac (1) (1) (1) h TABLET(S) TABLET(S) TABLET(S) Program BY MOUTH BY MOUTH BY MOUTH EVERY SIX EVERY SIX EVERY SIX HOURS HOURS HOURS NEEDED FOR NEEDED FOR NEEDED FOR 30 DAYS. 30 DAYS. 30 DAYS. hydroxyzine hydroxyzine No hydroxyzin [facility] HCl 25 mg HCl 25 mg e HCl 25 d a tablet TAKE tablet TAKE mg tablet [facility] ONE (1) ONE (1) TAKE ONE al TABLET(S) TABLET(S) (1) Healt h BY MOUTH BY MOUTH TABLET(S) [facility] TWICE A DAY TWICE A DAY BY MOUTH h WITH MEALS. WITH MEALS. TWICE A Program DAY WITH MEALS. lactulose lactulose No lactulose [facility] 10 gram/15 10 gram/15 10 gram/15 da mL oral mL oral mL oral [facility] solution solution solution al Health Outreac h Program losartan losartan No losartan [facility] 100 mg 100 mg 100 mg da tablet TAKE tablet TAKE tablet [facility] ONE (1) ONE (1) TAKE ONE al TABLET(S) TABLET(S) (1) Healt h BY MOUTH BY MOUTH TABLET(S) [facility] tre[facility] ONCE A DAY ONCE A DAY BY MOUTH h ONCE A DAY Program DIRECTED. DIRECTED. DIRECTED. meclizine meclizine No meclizine [facility] 12.5 mg 12.5 mg 12.5 mg da tablet TAKE tablet TAKE tablet [facility] ONE (1) ONE (1) TAKE ONE al TABLET(S) TABLET(S) (1) Healt h BY MOUTH BY MOUTH TABLET(S) [facility] THREE TIMES THREE TIMES BY MOUTH h A DAY A DAY THREE Progra m NEEDED. NEEDED. TIMES A DAY NEEDED. methocarbam methocarbam No methocarba [facility] ol 750 mg ol 750 mg mol 750 mg da tablet TAKE tablet TAKE tablet [facility] ONE (1) ONE (1) TAKE ONE al TABLET(S) TABLET(S) (1) Healt h BY MOUTH BY MOUTH TABLET(S) [facility] THREE TIMES THREE TIMES BY MOUTH h A DAY. A DAY. THREE Program TIMES A DAY. metoclopram metoclopram No metoclopra [facility] leodan 10 mg leodan 10 mg mide 10 mg da tablet TAKE tablet TAKE tablet [facility] ONE (1) ONE (1) TAKE ONE al TABLET(S) TABLET(S) (1) Healt h BY MOUTH BY MOUTH TABLET(S) [facility] TWICE A TWICE A BY MOUTH h DAY. DAY. TWICE A Program DAY. metolazone metolazone No metolazone [facility] 5 mg tablet 5 mg tablet 5 mg d a TAKE ONE TAKE ONE tablet [facility] (1) (1) TAKE ONE al TABLET(S) TABLET(S) (1) Healt h BY MOUTH IN BY MOUTH IN TABLET(S) Outreac THE THE BY MOUTH h MORNING. MORNING. IN THE Progr am MORNING. metronidazo metronidazo No metronidaz [facility] le 500 mg le 500 mg ole 500 mg da tablet TAKE tablet TAKE tablet [facility] ONE (1) ONE (1) TAKE ONE al TABLET(S) TABLET(S) (1) Healt h BY MOUTH BY MOUTH TABLET(S) [facility] EVERY EIGHT EVERY EIGHT BY MOUTH h HOURS. HOURS. EVERY Program EIGHT HOURS. montelukast montelukast No montelukas [facility] 10 mg 10 mg t 10 mg da tablet TAKE tablet TAKE tablet [facility] ONE (1) ONE (1) TAKE ONE al TABLET(S) TABLET(S) (1) Healt h BY MOUTH BY MOUTH TABLET(S) [facility] ONCE A DAY. ONCE A DAY. BY MOUTH h ONCE A Program DAY. nitroglycer nitroglycer No nitroglyce [facility] in 400 in 400 rin 400 da mcg/spray mcg/spray mcg/spray [facility] translingua translingua translingu al l l al Health Outreac h Program albuterol albuterol No albuterol [facility] sulfate 2.5 sulfate 2.5 sulfate da mg/3 mL mg/3 mL 2.5 mg/3 [facility] (0.083 %) (0.083 %) mL (0.083 al solution solution %) Health for for solution Outre[facility] nebulizatio nebulizatio for h n USE ONE n USE ONE nebulizati Program (1) VIAL IN (1) VIAL IN on USE ONE NEBULIZER NEBULIZER (1) VIAL THREE TIMES THREE TIMES IN A DAY A DAY NEBULIZER NEEDED. NEEDED. THREE TIMES A DAY NEEDED. omeprazole omeprazole No omeprazole [facility] 40 mg 40 mg 40 mg da capsule,del capsule,del capsule,de [facility] ayed ayed layed al release release release Health TAKE ONE TAKE ONE TAKE ONE Out reac (1) (1) (1) h CAPSULE(S) CAPSULE(S) CAPSULE(S) Program BY MOUTH BY MOUTH BY MOUTH ONCE A DAY ONCE A DAY ONCE A DAY NEEDED. NEEDED. NEEDED. ondansetron ondansetron No ondansetro [facility] 4 mg 4 mg n 4 mg da disintegrat disintegrat disintegra [facility] ing tablet ing tablet ting al tablet Health Outreac h Program ondansetron ondansetron No ondansetro [facility] HCl 4 mg HCl 4 mg n HCl 4 mg d a tablet TAKE tablet TAKE tablet [facility] ONE (1) ONE (1) TAKE ONE al TABLET(S) TABLET(S) (1) Healt h BY MOUTH BY MOUTH TABLET(S) [facility] EVERY EVERY BY MOUTH h TWELVE TWELVE EVERY Program HOURS HOURS TWELVE NEEDED. NEEDED. HOURS NEEDED. pantoprazol pantoprazol No pantoprazo [facility] e 20 mg e 20 mg le 20 mg da tablet,isis tablet,isis tablet,del [facility] yed release yed release ayed a l TAKE ONE TAKE ONE release Heal th (1) (1) TAKE ONE [facility]re[facility] TABLET(S) TABLET(S) (1) h BY MOUTH BY MOUTH TABLET(S) Pr ogram DAILY FOR DAILY FOR BY MOUTH PAIN. PAIN. DAILY FOR PAIN. pantoprazol pantoprazol No pantoprazo [facility] e 40 mg e 40 mg le 40 mg da tablet,isis tablet,isis tablet,del [facility] yed release yed release ayed a l release Health Outreac h Program potassium potassium No potassium [facility] chloride ER chloride ER chloride da 20 mEq 20 mEq ER 20 mEq [facility] tablet,exte tablet,exte tablet,ext al nded nded ended Health release(par release(par release(pa Outre[facility] t/cryst) t/cryst) rt/cryst) h Program promethazin promethazin No promethazi [facility] e 25 mg e 25 mg ne 25 mg da tablet TAKE tablet TAKE tablet [facility] ONE (1) ONE (1) TAKE ONE al TABLET(S) TABLET(S) (1) Healt h BY MOUTH BY MOUTH TABLET(S) [facility] TWICE A TWICE A BY MOUTH h DAY. DAY. TWICE A Program DAY. ranitidine ranitidine No ranitidine [facility] 150 mg 150 mg 150 mg da tablet TAKE tablet TAKE tablet [facility] ONE (1) ONE (1) TAKE ONE al TABLET(S) TABLET(S) (1) Healt h BY MOUTH BY MOUTH TABLET(S) [facility] TWICE A TWICE A BY MOUTH h DAY. DAY. TWICE A Program DAY. Reglan Reglan No Reglan [facility] da [facility] Program risperidone risperidone No risperidon [facility] 1 mg tablet 1 mg tablet e 1 mg da TAKE ONE TAKE ONE tablet [facility] (1) (1) TAKE ONE al TABLET(S) TABLET(S) (1) Healt h BY MOUTH BY MOUTH TABLET(S) [facility] EVERY DAY EVERY DAY BY MOUTH h AT BEDTIME. AT BEDTIME. EVERY DAY Program AT BEDTIME. alprazolam alprazolam No alprazolam [facility] 0.5 mg 0.5 mg 0.5 mg da tablet Take tablet Take tablet [facility] 1 tablet(s) 1 tablet(s) Take 1 al as needed as needed tablet(s) Health by oral by oral as needed Outr eac route with route with by oral h meals for meals for route with Program 30 days. 30 days. meals for 30 days. sertraline sertraline No sertraline [facility] 50 mg 50 mg 50 mg da tablet TAKE tablet TAKE tablet [facility] ONE (1) ONE (1) TAKE ONE al TABLET(S) TABLET(S) (1) Healt h BY MOUTH BY MOUTH TABLET(S) [facility] ONCE A DAY ONCE A DAY BY MOUTH h WITH A WITH A ONCE A DAY Progr am MEAL. MEAL. WITH A MEAL. sucralfate sucralfate No sucralfate [facility] 1 gram 1 gram 1 gram da tablet tablet tablet [facility] Program sulfamethox sulfamethox No sulfametho [facility] azole 800 azole 800 xazole 800 da mg-trimetho mg-trimetho mg-trimeth [facility] prim 160 mg prim 160 mg oprim 160 al tablet TAKE tablet TAKE mg tablet Health ONE (1) ONE (1) TAKE ONE Outre ac TABLET(S) TABLET(S) (1) h BY MOUTH BY MOUTH TABLET(S) Pr ogram EVERY EVERY BY MOUTH TWELVE TWELVE EVERY HOURS FOR HOURS FOR TWELVE SEVEN DAYS. SEVEN DAYS. HOURS FOR SEVEN DAYS. amitriptyli amitriptyli No amitriptyl [facility] ne 25 mg ne 25 mg ine 25 mg da tablet TAKE tablet TAKE tablet [facility] 1 TABLET(S) 1 TABLET(S) TAKE 1 al EVERY DAY EVERY DAY TABLET(S) Health BY ORAL BY ORAL EVERY DAY Outr eac ROUTE AT ROUTE AT BY ORAL h BEDTIME FOR BEDTIME FOR ROUTE AT Program 90 DAYS. 90 DAYS. BEDTIME FOR 90 DAYS. carvedilol carvedilol No carvedilol [facility] 6.25 mg 6.25 mg 6.25 mg da tablet TAKE tablet TAKE tablet [facility] ONE (1) ONE (1) TAKE ONE al TABLET(S) TABLET(S) (1) Healt h BY MOUTH BY MOUTH TABLET(S) [facility] TWICE A TWICE A BY MOUTH h DAY. DAY. TWICE A Program DAY. clindamycin clindamycin No clindamyci [facility] HCl 150 mg HCl 150 mg n HCl 150 da capsule capsule mg capsule [facility] Outre[facility] h Program clindamycin clindamycin No clindamyci [facility] HCl 300 mg HCl 300 mg n HCl 300 da capsule capsule mg capsule [facility] Outre[facility] h Program Combivent Combivent No Combivent [facility] Respimat 20 Respimat 20 Respimat da mcg-100 mcg-100 20 mcg-100 [facility] mcg/actuati mcg/actuati mcg/actuat al on solution on solution ion H ealth for for solution [facility]re[facility] inhalation inhalation for h INHALE ONE INHALE ONE inhalation Program (1) PUFF BY (1) PUFF BY INHALE ONE MOUTH EVERY MOUTH EVERY (1) PUFF 6 HOURS 6 HOURS BY MOUTH DIRECTED DIRECTED EVERY 6 FOR 30 FOR 30 HOURS DAYS. DAYS. DIRECTED FOR 30 DAYS. Vital Signs Vital Name Observation Time Observation Value Comments Source Height 2020-06-11 00:00:00 65 [facility]in[facility] BMI (Body Mass 2020-06-11 00:00:00 34.9 kg/m2 [facility] Body Weight 2020-06-11 00:00:00 210 [facility] Procedures This patient has no known procedures. Plan of Care Planned Activity Planned Date Details Comments Source Future Appointment 2021-03-25 00:00:00 Rosales Huff, [address] [facility] [address]; , [place] Program [id number] Encounters Start End Encounter Admission Attending Care Care Encounter Source Date/Time Date/Time Type Type Clinicians Facility Department ID 2020-12-24 2020-12-24 [place] [facility] [id number] [facility]00 MD Refugio: Lesli ramires [address] [facility] [address], [facility] [phone] h , Ph. Program (979) --20072020-09-24 2020-09-24 Rosales [place] - [id number] [facility] 00:00:00 00:00:00 MD Refugio: Lesli ramires [address] [facility] [address], [facility] [phone] h , Ph. Program (979) --20072020-06-11 2020-06-11 Rosales [place] - [id number] [facility] 00:00:00 00:00:00 MD Refugio: Lesli ramires [address] [facility] [address], [facility] [phone] h , Ph. Program (979) -2020-03-12 2020-03-12 Rosales [place] - [id number] [facility] 00:00:00 00:00:00 MD Refugio: Lesli ramires [address] [facility] [phone] [facility] , Ph. Program (979) 2019-12-12 2019-12-12 Rosales [place] - [id number] [facility] 00:00:00 00:00:00 MD Refugio: Lesli ramires [address] [facility] [address], Behavioral [facility] [phone] [facility] , Ph. ([phone]) --20072019-08-22 2019-08-22 Rosales [place] - [id number] [facility] 00:00:00 00:00:00 MD Refugio: Lesli ramires [address] [facility] [address], [place] [facility] [place] [phone] Leonardo bautista , Ph. (649) -20072019-07-18 2019-07-18 Rosales [place] - [id number] Nel 00:00:00 00:00:00 MD Refugio: Lesli ramires [address] [facility] [address], [place] [place] [phone] Leonardo bautista , Ph. ([phone]) -20072019-06-11 2019-06-11 Outpatient [facility] CAR [id number] [facility] 12:15:00 12:15:00 Results This patient has no known results.
[2021-01-05] MEDS ORDERED: MORPHINE 4 MG/ML SYR ONE ×2 (20:52→22:39)
[2021-01-05] MEDS ORDERED: FAMOTIDINE 20 MG/2 ML VIAL IV ONE (20:53)
[2021-01-05] MEDS ORDERED: NA CHLORIDE 0.9% 500 ML ONE (20:53)
[2021-01-05] MEDS ORDERED: ONDANSETRON 4 MG/2 ML VIAL ONE ×2 (20:53→22:45)
[2021-01-05 21:13] LABS: Absolute Lymphocytes (CBC) 5.9 K/uL (0.7-4.9); Basophils % 0.9 % (0-1.3); Hematocrit 34.1 % (36.0-45.0); Lymphocytes % 24.6 % (15.3-44.8); RBC Red Blood Cell Count 4.75 M/uL (3.86-4.86)
[2021-01-05 21:38] LABS: ALT/SGPT 20 U/L (12-78); AST/SGOT 15 U/L (15-37); Albumin 3.2 g/dL (3.4-5.0); Alkaline Phosphatase ND U/L (45-117); BUN Blood Urea Nitrogen 8 mg/dL (7-18); Bicarbonate 27 mmol/L (21-32); Bilirubin Direct < 0.1 mg/dL (0-0.2); Bilirubin Total 0.2 mg/dL (0.2-1.0); Glucose Level 108 mg/dL (74-106); Lipase 225 U/L (73-393); Potassium 3.9 mmol/L (3.5-5.1); Protein, Total 8.8 g/dL (6.4-8.2); Sodium Level 140 mmol/L (136-145)
[2021-01-05 21:53] LABS: Urine Blood NEGATIVE (NEG); Urine Glucose NEGATIVE (NEG); Urine Protein NEGATIVE (NEG); Urine Specific Gravity 1.015 (1.005-1.030); Urine pH 5.5 (5.0-7.0)
[2021-01-06] MEDS ORDERED: METRONIDAZOLE 500mg IVPB 500 MG/100 ML BAG IV ONE (01:34)
--- NOTE | 2021-01-06 01:38 | EDPHYS ---
Physician Documentation [facility] Name: Leila Stein Age: 60 yrs Sex: Female : 1960 Arrival Date: 01/05/2021 Time: 19:46 Bed 14 Private MD: Jacinto Florez H ED Physician Kendrick Fischer HPI: 01/05 21:32 This 60 yrs old Black Female presents to ER via Wheelchair with complaints of Abdominal mh7 Pain, Vomiting, Weakness, Dizziness. 21:32 The patient presents to the emergency department with nausea, that is moderate, mh7 vomiting, that is intermittent, abdominal pain, of the epigastric area, right lower quadrant and left lower quadrant, described as intermittent, and radiates to the left flank. Onset: The symptoms/episode began/occurred yesterday. Possible causes: unknown. The symptoms are aggravated by pressure, The symptoms are alleviated by nothing. Associated signs and symptoms: Pertinent positives: abdominal pain, flatulence, nausea, vomiting, Pertinent negatives: anorexia, belching, constipation, diarrhea, dysuria, fever, GI bleeding, hematuria, vaginal discharge. Severity of symptoms: At their worst the symptoms were moderate yesterday, in the emergency department the symptoms are unchanged. The patient has experienced similar episodes in the past, several times. Historical: - Allergies: 19:51 Demerol; ca1 19:51 Diphenhydramine; ca1 19:51 Ibuprofen; ca1 19:51 Kenalog; ca1 19:51 levabid; ca1 19:51 Levaquin; ca1 19:51 Naloxone; ca1 19:51 Norepinephrine Bitartrate; ca1 19:51 Penbutolol; ca1 19:51 PENICILLINS; ca1 19:51 PENTAZOCINE; ca1 19:51 Talwin; ca1 19:51 Tape; ca1 19:51 Triamcinolone Acetonide; ca1 - PMHx: 19:51 CHF; CVA; Hypertension; Myocardial infarction; Pancreatitis; ca1 01/06 01:43 ALL; mg2 - PSHx: 01/05 19:51 Cholecystectomy; Hysterectomy; Appendectomy; ca1 - Immunization history:: Flu vaccine is up to date. - Social history:: Smoking status: Patient reports the use of cigarette tobacco products, smokes one-half pack cigarettes per day. ROS: 21:32 Constitutional: Negative for fever, chills, and weight loss, Eyes: Negative for injury, mh7 pain, redness, and discharge, ENT: Negative for injury, pain, and discharge, Neck: Negative for injury, pain, and swelling, Cardiovascular: Negative for chest pain, palpitations, and edema, Respiratory: Negative for shortness of breath, cough, wheezing, and pleuritic chest pain, : Negative for injury, bleeding, discharge, and swelling, MS/Extremity: Negative for injury and deformity, Skin: Negative for injury, rash, and discoloration, Neuro: Negative for headache, weakness, numbness, tingling, and seizure, Psych: Negative for depression, anxiety, suicide ideation, homicidal ideation, and hallucinations, Allergy/Immunology: Negative for hives, rash, and allergies, Endocrine: Negative for neck swelling, polydipsia, polyuria, polyphagia, and marked weight changes, Hematologic/Lymphatic: Negative for swollen nodes, abnormal bleeding, and unusual bruising. Exam: 21:32 Constitutional: This is a well developed, well nourished patient who is awake, alert, mh7 and in no acute distress. Head/Face: Normocephalic, atraumatic. Eyes: Pupils equal round and reactive to light, extra-ocular motions intact. Lids and lashes normal. Conjunctiva and sclera are non-icteric and not injected. Cornea within normal limits. Periorbital areas with no swelling, redness, or edema. Neck: Trachea midline, no thyromegaly or masses palpated, and no cervical lymphadenopathy. Supple, full range of motion without nuchal rigidity, or vertebral point tenderness. No Meningismus. Chest/axilla: Normal chest wall appearance and motion. Nontender with no deformity. No lesions are appreciated. Cardiovascular: Regular rate and rhythm with a normal S1 and S2. No gallops, murmurs, or rubs. Normal PMI, no JVD. No pulse deficits. Respiratory: Lungs have equal breath sounds bilaterally, clear to auscultation and percussion. No rales, rhonchi or wheezes noted. No increased work of breathing, no retractions or nasal flaring. 21:32 Skin: Warm, dry with normal turgor. Normal color with no rashes, no lesions, and no evidence of cellulitis. MS/ Extremity: Pulses equal, no cyanosis. Neurovascular intact. Full, normal range of motion. Neuro: Awake and alert, GCS 15, oriented to person, place, time, and situation. Cranial nerves II-XII grossly intact. Motor strength 5/5 in all extremities. Sensory grossly intact. Cerebellar exam normal. Normal gait. Psych: Awake, alert, with orientation to person, place and time. Behavior, mood, and affect are within normal limits. 21:32 Abdomen/GI: Inspection: scar(s), are noted in the right upper quadrant, Bowel sounds: normal, in all quadrants, Palpation: moderate abdominal tenderness, in the epigastric area, right lower quadrant and left lower quadrant, mass, is not appreciated, rebound tenderness, is not appreciated, voluntary guarding, is not appreciated, involuntary guarding, is not appreciated, no appreciated organomegaly, Rectal exam: the exam is deferred, because of patient request, Indicators: McBurney's point is not tender, Martínez's sign is negative, Rovsing's sign is negative, Obturator sign is negative, Psoas sign is negative, Liver: no appreciated palpable abnormalities, Hernia: not appreciated. 21:32 Back: ROM is normal, normal spinal alignment noted, CVA tenderness, that is moderate, is noted on the left, vertebral tenderness, is not appreciated, muscle spasm, is not present. Vital Signs: 19:49 BP 142 / 91; Pulse 89; Resp 16 S; Temp 97.4(TE); Pulse Ox 99% on R/A; Weight 95.25 kg ca1 (R); Height 5 ft. 2 in. (157.48 cm) (R); Pain 10/10; 22:20 BP 135 / 76; Pulse 76; Resp 18; Pulse Ox 100% on R/A; mg2 23:45 BP 151 / 95; Pulse 85; Resp 18; Pulse Ox 98% on R/A; mg2 01/06 01:22 BP 152 / 91; Pulse 89; Resp 18; Pulse Ox 97% on R/A; mg2 04:12 BP 148 / 90; Pulse 80; Resp 17; Pulse Ox 96% on R/A; mg2 01/05 19:49 Body Mass Index 38.41 (95.25 kg, 157.48 cm) ca1 MDM: 01:34 Differential diagnosis: Nonspecific abd pain, gastritis, pancreatitis, diverticulitis, mh7 gastroenteritis. Data reviewed: vital signs, nurses notes, old medical records, lab test result(s), CBC, electrolytes, urinalysis, EKG, radiologic studies, CT scan. Data interpreted: Pulse oximetry: on room air is 97 %. Interpretation: normal. Counseling: I had a detailed discussion with the patient and/or guardian regarding: the historical points, exam findings, and any diagnostic results supporting the discharge/admit diagnosis, the presence of at least one elevated blood pressure reading (>120/80) during this emergency department visit, lab results, radiology results, the need for further work-up and treatment in the hospital. Response to treatment: the patient's symptoms have mildly improved after treatment. 01:36 Patient medically screened. [facility] 01/05 20:21 Order name: Basic Metabolic Panel [facility] 01/05 20:21 Order name: CBC with Diff [facility] 01/05 20:21 Order name: Hepatic Function; Complete Time: 22:37 [facility] 01/05 20:21 Order name: Lipase; Complete Time: 22:37 [facility] 01/05 20:22 Order name: Basic Metabolic Panel; Complete Time: 22:37 [facility] 01/05 20:22 Order name: CBC with Automated Diff; Complete Time: 22:37 [facility] 01/05 20:24 Order name: CT Abd/Pelvis - IV Contrast Only [facility] 01/05 21:49 Order name: Urine Dipstick--Ancillary (enter results); Complete Time: 22:37 [facility] 01/05 23:41 Order name: Lactate; Complete Time: 00:53 [facility] 01/05 23:41 Order name: Procalcitonin; Complete Time: 01:06 [facility] 01/06 02:34 Order name: Blood Culture Adult (2) la1 01/06 03:00 Order name: SARS-COV-2 RT PCR [facility] 01/05 20:21 Order name: IV Saline Lock; Complete Time: 20:33 [facility] 01/05 20:21 Order name: Labs collected and sent; Complete Time: 20:45 [facility] 01/05 20:21 Order name: Urine Dipstick-Ancillary (obtain specimen); Complete Time: 21:50 [facility] 01/05 20:21 Order name: EKG - Nurse/Tech; Complete Time: 21:07 [facility] Administered Medications: 01/05 20:44 Drug: morphine 4 mg {Note: left chest.} Route: IVP; Site: Other; mg2 22:30 Follow up: Response: No adverse reaction; RASS: Alert and Calm (0) mg2 20:44 Drug: NS 0.9% 500 ml {Note: left chest.} Route: IV; Rate: bolus; Site: Other; mg2 20:45 Drug: Zofran (Ondansetron) 4 mg {Note: left chest.} Route: IVP; Site: Other; mg2 22:30 Follow up: Response: No adverse reaction mg2 20:45 Drug: Pepcid 20 mg {Note: left chest.} Route: IVP; Site: Other; mg2 22:30 Follow up: Response: No adverse reaction mg2 22:31 Drug: Zofran (Ondansetron) 4 mg {Note: left chest area.} Route: IVP; Site: Other; mg2 01/06 01:22 Follow up: Response: No adverse reaction mg2 01/05 22:32 CANCELLED (Physician Discretion): morphine 4 mg Sub-Q once; RASS on ADMIN: Combtv4, mg2 Very Agttd3, Agttd2, Rstlss1, AlertClm0, Drwsy-1, Lt Sdtn-2, Mod Sdtn-3, Dp Sdtn-4, UnArsble-5 22:32 Drug: morphine 4 mg {Note: left chest area.} Route: IVP; Site: Other; mg2 01/06 01:21 Follow up: Response: No adverse reaction mg2 01:21 Drug: Flagyl 500 mg Volume: 100 ml; Route: IVPB; Rate: 200 ml/hr; Infused Over: 30 mg2 mins; Site: Other; 03:10 Follow up: IV Status: Completed infusion mg2 01:40 Drug: Rocephin - (cefTRIAXone) 1 grams Route: IVPB; Infused Over: 30 mins; Site: Other; mg2 01:59 Follow up: Response: No adverse reaction; IV Status: Completed infusion mg2 01:40 Drug: morphine 4 mg Route: IVP; Site: Other; mg2 03:10 Follow up: Response: No adverse reaction mg2 Disposition: 01/06/21 01:36 Hospitalization ordered by Miguelito Dumont for Inpatient Admission. Preliminary diagnosis are Intractable Abdominal Pain, Nausea and vomiting. - Bed requested for Telemetry/MedSurg (Inpatient). - Status is Inpatient Admission. mg2 - Condition is Stable. - Problem is an acute exacerbation. - Symptoms have improved. Signatures: Dispatcher [employer] EDMS Shannan Loaiza RN RN cg Kirit Montes RN RN [facility] [place] Cristine Aguilar RN RN [facility] Kendrick Fischer MD MD 7 Corrections: (The following items were deleted from the chart) 01/05 22:32 22:31 morphine 4 mg Sub-Q once; RASS on ADMIN: Combtv4, Very Agttd3, Agttd2, Rstlss1, mg2 AlertClm0, Drwsy-1, Lt Sdtn-2, Mod Sdtn-3, Dp Sdtn-4, UnArsble-5 ordered. mg2 01/06 01:58 01:36 CORONAVIRUS+MR.LAB.BRZ ordered. [facility] 04:43 01:36 Hospitalization Ordered by Miguelito Dumont MD for Inpatient Admission. Preliminary cg diagnosis is Intractable Abdominal Pain; Nausea and vomiting. Bed requested for Telemetry/MedSurg (Inpatient). Status is Inpatient Admission. Condition is Stable. Problem is an acute exacerbation. Symptoms have improved. [facility] 04:54 04:43 01/06/2021 01:36 Hospitalization Ordered by Miguelito Dumont MD for Inpatient mg2 Admission. Preliminary diagnosis is Intractable Abdominal Pain; Nausea and vomiting. Bed requested for Telemetry/MedSurg (Inpatient). Status is Inpatient Admission. Condition is Stable. Problem is an acute exacerbation. Symptoms have improved. cg
--- NOTE | 2021-01-06 01:38 | ER ---
Nurse's Notes [facility] Name: Leila Stein Age: 60 yrs Sex: Female : 1960 Arrival Date: 01/05/2021 Time: 19:46 Bed 14 Private MD: Jacinto Florez H Diagnosis: Intractable Abdominal Pain;Nausea and vomiting Presentation: 01/05 19:49 Chief complaint: Patient states: Epigastric pain, Lower abdominal pain radiates to the ca1 lower back x 2 days. Reports N/V. Denies diarhea. Coronavirus screen: Client denies travel out of the [place] in the last 14 days. nausea, vomiting. Client presents with at least one sign or symptom that may indicate coronavirus-19. Standard/surgical mask placed on the client. Provider contacted for isolation considerations. Ebola Screen: Patient negative for fever greater than or equal to 101.5 degrees Fahrenheit, and additional compatible Ebola Virus Disease symptoms Patient denies exposure to infectious person. Patient denies travel to an Ebola-affected area in the 21 days before illness onset. No symptoms or risks identified at this time. Initial Sepsis Screen: Does the patient meet any 2 criteria? No. Patient's initial sepsis screen is negative. Does the patient have a suspected source of infection? No. Patient's initial sepsis screen is negative. Risk Assessment: Do you want to hurt yourself or someone else? Patient reports no desire to harm self or others. Onset of symptoms was January 05, 2021. 19:49 Method Of Arrival: Wheelchair ca1 19:49 Acuity: JARROD 3 ca1 Historical: - Allergies: 19:51 Demerol; ca1 19:51 Diphenhydramine; ca1 19:51 Ibuprofen; ca1 19:51 Kenalog; ca1 19:51 levabid; ca1 19:51 Levaquin; ca1 19:51 Naloxone; ca1 19:51 Norepinephrine Bitartrate; ca1 19:51 Penbutolol; ca1 19:51 PENICILLINS; ca1 19:51 PENTAZOCINE; ca1 19:51 Talwin; ca1 19:51 Tape; ca1 19:51 Triamcinolone Acetonide; ca1 - PMHx: 19:51 CHF; CVA; Hypertension; Myocardial infarction; Pancreatitis; ca1 01/06 01:43 ALL; mg2 - PSHx: 03/18 19:51 Cholecystectomy; Hysterectomy; Appendectomy; ca1 - Immunization history:: Flu vaccine is up to date. - Social history:: Smoking status: Patient reports the use of cigarette tobacco products, smokes one-half pack cigarettes per day. Screenin:06 Abuse screen: Denies threats or abuse. Denies injuries from another. Nutritional mg2 screening: No deficits noted. Tuberculosis screening: No symptoms or risk factors identified. Fall Risk IV access (20 points). Assessment: 21:05 General: Appears in no apparent distress. comfortable, Behavior is calm, cooperative. mg2 Pain: Complains of pain in chest and abdomen. Neuro: Level of Consciousness is awake, alert, obeys commands, Oriented to person, place, time, situation. Cardiovascular: Capillary refill < 3 seconds Patient's skin is warm and dry. Respiratory: Airway is patent Respiratory effort is even, unlabored, Respiratory pattern is regular, symmetrical. GI: Bowel sounds present X 4 quads. GI: Reports lower abdominal pain, upper abdominal pain, vomiting. : No signs and/or symptoms were reported regarding the genitourinary system. EENT: No signs and/or symptoms were reported regarding the EENT system. Derm: Skin is intact, is healthy with good turgor, Skin is pink, warm \T\ dry. normal. Musculoskeletal: Circulation, motion, and sensation intact. Capillary refill < 3 seconds. 21:07 GI: Abdomen is tender to palpation X 4 quads. mg2 21:07 Reassessment: Coal Handler came and draw blood from the patient. mg2 01/06 00:01 Reassessment: Patient appears in no apparent distress at this time. Patient and/or mg2 family updated on plan of care and expected duration. Pain level reassessed. Patient is alert, oriented x 3, equal unlabored respirations, skin warm/dry/pink. 02:00 Reassessment: seen by ISRRAEL Delgado - hospitalist and advised admission. mg2 03:30 Reassessment: No changes from previously documented assessment. Patient and/or family mg2 updated on plan of care and expected duration. Pain level reassessed. Patient is alert, oriented x 3, equal unlabored respirations, skin warm/dry/pink. Vital Signs: 01/05 19:49 BP 142 / 91; Pulse 89; Resp 16 S; Temp 97.4(TE); Pulse Ox 99% on R/A; Weight 95.25 kg ca1 (R); Height 5 ft. 2 in. (157.48 cm) (R); Pain 10/10; 22:20 BP 135 / 76; Pulse 76; Resp 18; Pulse Ox 100% on R/A; mg2 23:45 BP 151 / 95; Pulse 85; Resp 18; Pulse Ox 98% on R/A; mg2 01/06 01:22 BP 152 / 91; Pulse 89; Resp 18; Pulse Ox 97% on R/A; mg2 04:12 BP 148 / 90; Pulse 80; Resp 17; Pulse Ox 96% on R/A; mg2 01/05 19:49 Body Mass Index 38.41 (95.25 kg, 157.48 cm) ca1 ED Course: 01/05 19:46 Patient arrived in ED. es 19:46 Jacinto Florez MD is Private Physician. es 19:51 Triage completed. ca1 19:51 Arm band placed on right wrist. ca1 19:57 Kirit Montes, AMAURY is Primary Nurse. mg2 19:58 Kendrick Fischer MD is Attending Physician. mh7 20:30 Inserted saline lock: 20 gauge in left ,using aseptic technique. left chest area Blood mg2 collected. 21:06 Patient has correct armband on for positive identification. mg2 21:06 No provider procedures requiring assistance completed. mg2 22:11 CT Abd/Pelvis - IV Contrast Only In Process Unspecified. EDMS 01/06 01:36 Miguelito Dumont MD is Hospitalizing Provider. mh7 02:13 COVID swab sent to lab. Patient admitted, IV remains in place. mg2 Administered Medications: 01/05 20:44 Drug: morphine 4 mg {Note: left chest.} Route: IVP; Site: Other; mg2 22:30 Follow up: Response: No adverse reaction; RASS: Alert and Calm (0) mg2 20:44 Drug: NS 0.9% 500 ml {Note: left chest.} Route: IV; Rate: bolus; Site: Other; mg2 20:45 Drug: Zofran (Ondansetron) 4 mg {Note: left chest.} Route: IVP; Site: Other; mg2 22:30 Follow up: Response: No adverse reaction mg2 20:45 Drug: Pepcid 20 mg {Note: left chest.} Route: IVP; Site: Other; mg2 22:30 Follow up: Response: No adverse reaction mg2 22:31 Drug: Zofran (Ondansetron) 4 mg {Note: left chest area.} Route: IVP; Site: Other; mg2 01/06 01:22 Follow up: Response: No adverse reaction mg2 01/05 22:32 CANCELLED (Physician Discretion): morphine 4 mg Sub-Q once; RASS on ADMIN: Combtv4, mg2 Very Agttd3, Agttd2, Rstlss1, AlertClm0, Drwsy-1, Lt Sdtn-2, Mod Sdtn-3, Dp Sdtn-4, UnArsble-5 22:32 Drug: morphine 4 mg {Note: left chest area.} Route: IVP; Site: Other; mg2 01/06 01:21 Follow up: Response: No adverse reaction mg2 01:21 Drug: Flagyl 500 mg Volume: 100 ml; Route: IVPB; Rate: 200 ml/hr; Infused Over: 30 mg2 mins; Site: Other; 03:10 Follow up: IV Status: Completed infusion mg2 01:40 Drug: Rocephin - (cefTRIAXone) 1 grams Route: IVPB; Infused Over: 30 mins; Site: Other; mg2 01:59 Follow up: Response: No adverse reaction; IV Status: Completed infusion mg2 01:40 Drug: morphine 4 mg Route: IVP; Site: Other; mg2 03:10 Follow up: Response: No adverse reaction mg2 Outcome: 01:36 Decision to Hospitalize by Provider. [facility] [place] 04:49 Admitted to Med/surg accompanied by nurse, via stretcher, room 215. mg2 04:49 Condition: stable 04:49 Instructed on the need for admit, Demonstrated understanding of instructions. 04:54 Patient left the ED. mg2 Signatures: Dispatcher [employer] Agustina Duran Michele, RN RN mg2 Cristine Aguilar RN RN ca1 Kendrick Fischer MD MD 7
[2021-01-06] MEDS ORDERED: CEFTRIAXONE/SWI 1gm 1 GM/10 ML SYR ONE (01:54)
[2021-01-06] MEDS ORDERED: MORPHINE 4 MG/ML SYR ONE (01:54)
--- NOTE | 2021-01-06 02:34 | P.HP ---
Certification for Inpatient Patient admitted to: Observation With expected LOS: <2 Midnights Patient will require the following post-hospital care: None Practitioner: I am a practitioner with admitting privileges, knowledge of patient current condition, hospital course, and medical plan of care. Services: Services provided to patient in accordance with Admission requirements found in Title 42 Section 412.3 of the Code of Federal Regulations <[email or web address] - Last Filed: 01/06/21 02:27> Patient History Date of Service: 01/06/21 Primary Care Provider: Dr. Colby, Dr. Florez Reason for admission: Intractable vomiting/abdominal pain History of Present Illness: 60-year-old female with history of CLL, hypertension, COPD, CAD, chronic pancreatitis, mitral valve prolapse presents emergency department for abdominal pain, nausea and vomiting. Patient reports that she has had ongoing epigastric pain with nausea and vomiting over the course of the last 2 days. Patient reports severe cramping/sharp epigastric pain with some tenderness to palpation in the epigastric and left upper quadrant. Labs significant for elevated white blood cell count [id number], history of CLL with frequently elevated white blood cell count, pro calcitonin negative lipase 225. Patient required multiple doses of narcotic pain medication and was still having refractory pain, also still vomiting after 3 doses of anti emetics. CT abdomen pelvis performed which did not identify any acute findings. Patient previous cholecystectomy, appendectomy. ED provider wishes to admit patient for further evaluation and management of intractable nausea and vomiting/abdominal pain. - Past Medical/Surgical History Diabetic: No -: Chronic pancreatitis -: mitral valve prolapse -: HTN -: CLL -: COPD -: NE in 2013 -: appendenctomy -: cholecystectomy -: brain sx-damaged nerve -: neck sx Psychosocial/ Personal History: Patient lives with , retired - Family History Father -: Cancer Notes: lung cancer Mother -: Cancer Notes: colon cancer - Social History Smoking Status: Current every day smoker Counseled patient to stop smoking for: less than 10 minutes Smoking therapy provided: Yes Alcohol use: No CD- Drugs: No Caffeine use: Yes Place of Residence: Home <Danny Barillas - Last Filed: 01/06/21 02:27> Date of Service: 01/06/21 <Miguelito Dumont - Last Filed: 01/06/21 16:16> Allergies diphenhydramine HCl [From Benadryl] Allergy (Severe, Verified 01/06/21 05:20) Anaphylaxis pentazocine lactate [From Talwin] Allergy (Severe, Verified 01/06/21 05:20) Anaphylaxis triamcinolone acetonide [From Kenalog] Allergy (Severe, Verified 01/06/21 05:20) Anaphylaxis hyoscyamine sulfate [From Levbid] Allergy (Intermediate, Verified 01/06/21 05:20) Itching ibuprofen Allergy (Intermediate, Verified 01/06/21 05:20) Itching/Hives/Rash levofloxacin Allergy (Intermediate, Verified 01/06/21 05:20) Itching/Hives/Rash naloxone Allergy (Intermediate, Verified 01/06/21 05:20) Hives/Rash penbutolol Allergy (Intermediate, Verified 01/06/21 05:20) Itching Penicillins Allergy (Intermediate, Verified 01/06/21 05:20) Itching/Hives/Rash pentazocine [From Talwin] Allergy (Intermediate, Verified 01/06/21 05:20) Itching levabid Allergy (Intermediate, Uncoded 03/20/18 00:48) Hives/Rash Norepinephrine Bit Allergy (Intermediate, Uncoded 03/20/18 03:18) Itching Tape Allergy (Intermediate, Uncoded 03/20/18 03:18) Rash Triamcinolone Acet Allergy (Intermediate, Uncoded 03/20/18 03:18) Itching Home Medications: Amitriptyline [Elavil*] 25 mg PO BEDTIME 01/06/21 Dicyclomine HCl 20 mg PO DAILYPRN PRN 01/06/21 Furosemide [Lasix*] 40 mg PO DAILY 01/06/21 Gabapentin [Neurontin*] 200 mg PO BID 01/06/21 Ipratropium/Albuterol Sulfate [Combivent Respimat 20-100 Mcg] 2 puff IH QIDP PRN 01/06/21 Lipase/Protease/Amylase [Bev Boyd 12,000 Units Capsule] 3 cap PO ACHS 01/06/21 Losartan Potassium [Cozaar] 100 mg PO DAILY 01/06/21 Montelukast Sodium [Singulair] 10 mg PO DAILY 01/06/21 Omeprazole [Prilosec] 40 mg PO DAILY 01/06/21 Potassium Chloride 20 meq PO DAILY 01/06/21 Risperidone [Risperdal] 1 mg PO BEDTIME 01/06/21 Sertraline [Zoloft*] 50 mg PO DAILY 01/06/21 Sucralfate [Carafate*] 1 g PO ACHS 01/06/21 carvediloL [Carvedilol] 6.25 mg PO BID 01/06/21 hydrOXYzine HCL [Atarax*] 25 mg PO Q6HP PRN 01/06/21 Review of Systems 10-point ROS is otherwise unremarkable Gastrointestinal: Nausea, Vomiting, Abdominal Pain <Danny Barillas - Last Filed: 01/06/21 02:27> Physical Examination - Physical Exam General: Alert, In no apparent distress HEENT: Atraumatic, PERRLA, Mucous membr. moist/pink Neck: Supple, 2+ carotid pulse no bruit, No LAD Respiratory: Clear to auscultation bilaterally, Normal air movement Cardiovascular: Regular rate/rhythm, Normal S1 S2 Capillary refill: <2 Seconds Gastrointestinal: Normal bowel sounds, Tenderness (Epigastric, left upper quadrant abdominal tenderness without rebound ) Musculoskeletal: No tenderness Integumentary: No rashes Neurological: Normal speech, Normal strength at 5/5 x4 extr, Normal tone, Normal affect - Studies Laboratory Data (last 24 hrs) 01/05/21 21:04: WBC 24.00 H*, Hgb 11.0 L, Hct 34.1 L, Plt Count 441 H 01/05/21 21:04: Sodium 140, Potassium 3.9, BUN 8, Creatinine 0.79, Glucose 108 H, Total Bilirubin 0.2, AST 15, ALT 20, Alkaline Phosphatase ND, Lipase 225 <Danny Barillas - Last Filed: 01/06/21 02:27> - Studies Laboratory Data (last 24 hrs) 01/06/21 05:00: Sodium 140, Potassium 3.6, BUN 7, Creatinine 0.83, Glucose 120 H, Magnesium 2.1, Total Bilirubin 0.2, AST 21, ALT 22, Alkaline Phosphatase ND 01/06/21 05:00: WBC 18.90 H D, Hgb 10.9 L, Hct 34.4 L, Plt Count 437 H 01/05/21 21:04: WBC 24.00 H*, Hgb 11.0 L, Hct 34.1 L, Plt Count 441 H 01/05/21 21:04: Sodium 140, Potassium 3.9, BUN 8, Creatinine 0.79, Glucose 108 H, Total Bilirubin 0.2, AST 15, ALT 20, Alkaline Phosphatase ND, Lipase 225 <Miguelito Dumont - Last Filed: 01/06/21 16:16> Assessment and Plan - Plan Assessment Intractable nausea/vomiting/abdominal pain Leukocytosis likely secondary to CLL Hypertension COPD secondary to tobacco abuse Plan Intractable nausea/vomiting/abdominal pain: CT abdomen pelvis without acute findings, lipase normal at this time, patient does have chronic pancreatitis, also history of gastritis. Pro calcitonin negative, leukocytosis is likely secondary to CLL but will continue with empiric antibiotics at this time. Continue with IV fluids, p.r.n. pain and nausea medications, GI prophylaxis. DVT prophylaxis Lovenox 40 mg subcutaneous once daily. Leukocytosis likely secondary to CLL: CT negative, pro calcitonin negative, continue with IV antibiotics this time as empiric therapy. Hypertension: Stable continue home med. COPD secondary to tobacco abuse: Stable continue home med. Discharge Plan: Home Plan to discharge in: 24 Hours - Advance Directives Does patient have a Living Will: No Does patient have a Durable POA for Healthcare: No - Code Status/Comfort Care Code Status Assessed: Yes (Full code) Critical Care: No Time Spent Managing Pts Care (In Minutes): 55 <Danny Barillas - Last Filed: 01/06/21 02:27> - Plan Plan of care reviewed as noted above by Danny Barillas Intractable nausea/vomiting with abdominal pain. Continue p.r.n. pain medication, nausea medication, bowel rest, antibiotics <Miguelito Dumont - Last Filed: 01/06/21 16:16>
[2021-01-06] MEDS ORDERED: ONDANSETRON 4 MG/2 ML VIAL IV PRN (03:40)
[2021-01-06 05:11] LABS: Absolute Lymphocytes (CBC) 5.2 K/uL (0.7-4.9); Basophils % 0.9 % (0-1.3); Hematocrit 34.4 % (36.0-45.0); Lymphocytes % 27.7 % (15.3-44.8); MPV 8.1 fL (7.6-11.3); RBC Red Blood Cell Count 4.76 M/uL (3.86-4.86)
[2021-01-06 05:16] LABS: Alkaline Phosphatase ND U/L (45-117)
[2021-01-06 05:18] VITALS: BMI 36.2
[2021-01-06] MEDS: NA CHLORIDE 0.9% 1,000 ML IV SCH ×3 (05:46→23:40)
[2021-01-06] MEDS: MORPHINE 2 MG/ML SYR IV PRN ×4 (05:46→20:03)
[2021-01-06 05:57] LABS: ALT/SGPT 22 U/L (12-78); AST/SGOT 21 U/L (15-37); Albumin 2.9 g/dL (3.4-5.0); BUN Blood Urea Nitrogen 7 mg/dL (7-18); Bicarbonate 27 mmol/L (21-32); Bilirubin Total 0.2 mg/dL (0.2-1.0); Glucose Level 120 mg/dL (74-106); Magnesium 2.1 mg/dL (1.8-2.4); Potassium 3.6 mmol/L (3.5-5.1); Sodium Level 140 mmol/L (136-145)
[2021-01-06] MEDS: PROMETHAZINE INJ 25 MG/ML AMP IV PRN ×3 (06:02→20:04)
[2021-01-06] MEDS ORDERED: KCL 20 MEQ/100 mL IVPB 20 MEQ/100 ML BAG IV SCH (07:45)
[2021-01-06] MEDS: METRONIDAZOLE 500mg IVPB 500 MG/100 ML BAG IV SCH ×2 (08:44→16:57)
[2021-01-06] MEDS: NICOTINE 21 MG/PAT TD SCH (08:45)
[2021-01-06] MEDS: DICYCLOMINE HCL 10 MG CAP PO SCH ×3 (08:46→21:09)
[2021-01-06] MEDS: FAMOTIDINE 20 MG/2 ML VIAL IV SCH (08:46)
[2021-01-06] MEDS ORDERED: CEFTRIAXONE 1 GM/NS 50 ML 1 GM/50 ML BAG IV SCH (09:00)
--- NOTE | 2021-01-06 10:44 | RAD REPORT ---
EXAM DESCRIPTION: CT - Abdomen Pelvis W Contrast - 01/06/2021 6:50 am CLINICAL HISTORY: 60 years Female Abd pain;Nausea / vomiting COMPARISON: None. TECHNIQUE: Contiguous axial images obtained through the abdomen and pelvis following IV contrast. Re formatted images obtained. This exam was performed according to our department optimization program which includes automated exp osure control, adjustment of the mA and/or kv according to patient size and/or use of iterative recon struction technique. FINDINGS: There is a linear serpiginous band of increased density in the left breast possibly postsu rgical. Clinical and mammographic evaluation is recommended. Minimal scarring/atelectasis in the lower lungs. There is a small calcified granuloma in the left low er lung. There is mild intrahepatic biliary ductal dilatation likely related to previous cholecystectomy. The spleen and pancreas appear unremarkable. No adrenal masses. The kidneys appear unremarkable. No hydronephrosis. The gallbladder is not visualized likely from previous cholecystectomy. Mild atherosclerotic calcifications. No aneurysmal dilatation of the aorta. No bowel obstruction. The appendix is not visualized. No significant free pelvic fluid. There are changes from previous hysterectomy. Degenerative changes in the spine. IMPRESSION: No acute intra-abdominal abnormality is identified. There is a linear serpiginous band o f increased density in the left breast possibly postsurgical. Clinical and mammographic evaluation is recommended. Other findings as above. Electronically signed by: Peter Rivas MD 01/05/2021 10:27 PM CDT Due to temporary technical issues with the PACS/Fluency reporting system, reports are being signed by the in house radiologists without review as a courtesy to insure prompt reporting. The interpreting radiologist is fully responsible for the content of the report.
[2021-01-06] MEDS: ONDANSETRON 4 MG/2 ML VIAL IV PRN (10:56)
[2021-01-06 12:19] LABS: Blood Morphology Comment NOT SEEN (NOT SEEN); Platelet Estimate ADEQ
--- NOTE | 2021-01-06 20:57 | P.PN ---
Subjective Date of Service: 01/06/21 Primary Care Provider: Dr. Colby, Dr. Florez Chief Complaint: Intractable vomiting/abdominal pain Subjective: Other (pt seen in AM, reported minimal improvement. Seen again in afternoon - pt reported slight improvement, no vomiting, but occasional dry heaving, still with moderate-severe pain) Physical Examination - Vital Signs Temperature: 98.6 F Blood Pressure: 135/63 Pulse: 94 Respirations: 18 Pulse Ox (%): 95 - Studies Laboratory Data (last 24 hrs) 01/06/21 05:00: Sodium 140, Potassium 3.6, BUN 7, Creatinine 0.83, Glucose 120 H, Magnesium 2.1, Total Bilirubin 0.2, AST 21, ALT 22, Alkaline Phosphatase ND 01/06/21 05:00: WBC 18.90 H D, Hgb 10.9 L, Hct 34.4 L, Plt Count 437 H 01/05/21 21:04: WBC 24.00 H*, Hgb 11.0 L, Hct 34.1 L, Plt Count 441 H 01/05/21 21:04: Sodium 140, Potassium 3.9, BUN 8, Creatinine 0.79, Glucose 108 H, Total Bilirubin 0.2, AST 15, ALT 20, Alkaline Phosphatase ND, Lipase 225 Assessment & Plan Physician Review Additional Text: Physical Exam: Gen: mild distress, uncomfortable, sleepy HEENT: normal conjunctiva, sclera anicteric CV: RRR, no murmur/rub Pulm: CTAB, nonlabored on room air Abd: soft, diffuse tenderness to palpation, worse periumbilical Ext: no erythema, no rash Problem List: Intractable nausea/vomiting/abdominal pain Leukocytosis likely secondary to CLL Hypertension COPD secondary to tobacco abuse -CT abd/pelvis negative for acute findings, lipase normal, does have chronic pancreatitis history and h/o gastritis -procal negative leukocytosis may be reactive/infectious vs CLL -continue empiric antibiotics at this time -continue bowel rest, IVF, PRN pain medication -restart home medications as appropriate Dispo: unclear cause of pain at this time, anticipate dc home in 24-48hrs Time Spent Managing Pts Care (In Minutes): 35
[2021-01-06] MEDS: GABAPENTIN 100 MG CAP PO SCH (21:09)
[2021-01-06] MEDS: RISPERIDONE 1 MG TABLET PO SCH (21:10)
[2021-01-06] MEDS: AMITRIPTYLINE 25 MG TAB PO SCH (21:10)
[2021-01-06] MEDS ORDERED: ALBUTEROL INHALER 60 PUFF/8 GM IH PRN (21:15)
[2021-01-06] MEDS: ALBUTEROL 2.5 MG/3 ML NEB SOL NEB PRN (21:40)
[2021-01-06 22:18] VITALS: O2SAT 95
[2021-01-07] MEDS: CEFTRIAXONE/SWI 1gm 1 GM/10 ML SYR IV SCH (00:07)
[2021-01-07] MEDS: METRONIDAZOLE 500mg IVPB 500 MG/100 ML BAG IV SCH ×3 (00:07→17:00)
[2021-01-07] MEDS: PROMETHAZINE INJ 25 MG/ML AMP IV PRN ×2 (03:03→17:06)
[2021-01-07] MEDS: MORPHINE 2 MG/ML SYR IV PRN ×5 (03:03→22:08)
[2021-01-07] MEDS: NA CHLORIDE 0.9% 1,000 ML IV SCH ×2 (03:03→09:40)
[2021-01-07] MEDS: hydrOXYzine HCL 25 MG TAB PO PRN ×3 (03:51→20:33)
[2021-01-07 04:06] LABS: Urine Appearance CLOUDY; Urine Blood NEGATIVE (NEG); Urine Color DK YELLOW; Urine Glucose NEGATIVE (NEG); Urine Protein NEGATIVE (NEG); Urine Specific Gravity 1.025 (1.005-1.030); Urine Urobilinogen 0.2 mg/dL (0.2-1.0); Urine pH 5.5 (5.0-7.0)
[2021-01-07 04:38] LABS: Urine Bilirubin NEG (NEG); Urine Microscopic Reflex ORDER UMIC
[2021-01-07 06:13] LABS: Urine Bacteria 20-50 /HPF (<20); Urine Mucus 1+ /HPF (NONE SEEN); Urine RBC NONE SEEN /HPF (NONE SEEN)
[2021-01-07 06:17] LABS: Absolute Lymphocytes (CBC) 4.7 K/uL (0.7-4.9); Basophils % 0.9 % (0-1.3); Hematocrit 31.3 % (36.0-45.0); MPV 8.3 fL (7.6-11.3); RBC Red Blood Cell Count 4.32 M/uL (3.86-4.86)
[2021-01-07 06:51] LABS: ALT/SGPT 19 U/L (12-78); AST/SGOT 15 U/L (15-37); Albumin 2.6 g/dL (3.4-5.0); Alkaline Phosphatase 119 U/L (45-117); BUN Blood Urea Nitrogen 8 mg/dL (7-18); Bicarbonate 24 mmol/L (21-32); Bilirubin Total 0.2 mg/dL (0.2-1.0); Glucose Level 89 mg/dL (74-106); Lipase 232 U/L (73-393); Magnesium 1.9 mg/dL (1.8-2.4); Potassium 3.4 mmol/L (3.5-5.1); Protein, Total 7.1 g/dL (6.4-8.2); Sodium Level 142 mmol/L (136-145)
[2021-01-07] MEDS: GABAPENTIN 100 MG CAP PO SCH ×2 (07:49→20:27)
[2021-01-07] MEDS: DICYCLOMINE HCL 10 MG CAP PO SCH ×3 (07:49→20:27)
[2021-01-07] MEDS: NICOTINE 21 MG/PAT TD SCH (07:50)
[2021-01-07] MEDS: ONDANSETRON 4 MG/2 ML VIAL IV PRN ×2 (07:50→20:25)
[2021-01-07] MEDS: KCL 20 MEQ/100 mL IVPB 20 MEQ/100 ML BAG IV SCH ×2 (07:51→10:00)
[2021-01-07] MEDS: FAMOTIDINE 20 MG/2 ML VIAL IV SCH (07:52)
[2021-01-07] MEDS: SERTRALINE HCL 50 MG TAB PO SCH (07:52)
[2021-01-07] MEDS: ALBUTEROL 2.5 MG/3 ML NEB SOL NEB PRN (10:00)
[2021-01-07] MEDS: POTASSIUM CL SA 10 MEQ TAB PO ONE ×2 (10:18→12:12)
--- NOTE | 2021-01-07 12:54 | P.PN ---
Subjective Date of Service: 01/07/21 Primary Care Provider: Dr. Colby, Dr. Florez Chief Complaint: Intractable vomiting/abdominal pain Subjective: Other (Minimal improvement with pain. Reports continues with dry heaving. Having some pain at right flank as well.) Review of Systems 10-point ROS is otherwise unremarkable Physical Examination - Vital Signs Temperature: 98 F Blood Pressure: 119/57 Pulse: 86 Respirations: 18 Pulse Ox (%): 94 Assessment & Plan Physician Review Additional Text: Physical Exam: Gen: mild distress, uncomfortable HEENT: normal conjunctiva, sclera anicteric CV: RRR, no murmur/rub Pulm: CTAB, nonlabored on room air Abd: soft, diffuse tenderness to palpation, worse periumbilical / lower abdomen - extremely tender, out of proportion to my exam, even just to light touch Tenderness on right posterior flank as well Ext: no erythema, no rash Problem List: Intractable nausea/vomiting/abdominal pain Leukocytosis h/o CLL Hypertension COPD secondary to tobacco abuse -CT abd/pelvis negative for acute findings, lipase normal, does have chronic pancreatitis history and h/o gastritis -procal negative leukocytosis may be reactive/infectious vs CLL - CRP elevated -continue empiric antibiotics at this time -continue bowel rest, IVF, PRN pain medication -HUMAN SERVICES CARE SPECIALIST reviewed, pt with chronic pain, on TID -restarted home medications as appropriate norco 10mg, 1 prescriber -pain is significantly out of proportion to the exam / negative CT findings, concern for ischemia, will obtain CTA -chronic pain user, may be some component of pain seeking, however WBC is elevated and slightly improving. Dispo: unclear cause of pain at this time, anticipate dc home in 24-48hrs Time Spent Managing Pts Care (In Minutes): 35
--- NOTE | 2021-01-07 13:15 | RAD REPORT ---
EXAM DESCRIPTION: CT - CT ANGIO ABD/PELVIS W CONTRAST - 01/07/2021 1:04 pm CLINICAL HISTORY: Abdominal pain COMPARISON: None. TECHNIQUE: CT angiography was performed of the abdominal aorta and pelvic vessels with volume render ing. All CT scans are performed using dose optimization technique as appropriate and may include automated exposure control or mA/KV adjustment according to patient size. FINDINGS: No abdominal aortic aneurysm or dissection. Minimal atheromatous calcification of the dist al abdominal aorta is seen. The celiac axis, SMA, JESSICA and renal arteries appear patent. Both common iliac arteries are patent. There is no finding present suggest ischemic bowel. No bulky adenopathy, bowel obstruction or free fluid. No free air seen. No acute solid organ abnormal ity. IMPRESSION: No evidence of mesenteric ischemia.
[2021-01-07] MEDS ORDERED: LACTULOSE 20 GM/30 ML UCUP PO PRN (14:18)
[2021-01-07] MEDS ORDERED: KCL 20 MEQ/100 mL IVPB 20 MEQ/100 ML BAG IV ONE (15:51)
[2021-01-07] MEDS: LIPASE/PROTEASE/AMYLASE CAP PO SCH ×2 (16:30→20:26)
[2021-01-07] MEDS: AMITRIPTYLINE 25 MG TAB PO SCH (20:27)
[2021-01-07] MEDS: RISPERIDONE 1 MG TABLET PO SCH (20:27)
[2021-01-07] MEDS: PANTOPRAZOLE 40MG TABLET PO SCH (23:00)
[2021-01-08] MEDS: METRONIDAZOLE 500mg IVPB 500 MG/100 ML BAG IV SCH ×2 (01:29→08:33)
[2021-01-08] MEDS: CEFTRIAXONE/SWI 1gm 1 GM/10 ML SYR IV SCH (01:29)
[2021-01-08] MEDS: NA CHLORIDE 0.9% 1,000 ML IV SCH (01:36)
[2021-01-08] MEDS: ALBUTEROL 2.5 MG/3 ML NEB SOL NEB PRN (03:00)
[2021-01-08] MEDS: PROMETHAZINE INJ 25 MG/ML AMP IV PRN (04:41)
[2021-01-08] MEDS: MORPHINE 2 MG/ML SYR IV PRN (04:41)
[2021-01-08] MEDS: hydrOXYzine HCL 25 MG TAB PO PRN ×2 (05:01→08:32)
[2021-01-08 07:12] LABS: C-Reactive Protein 25.3 mg/L (<3.00); Potassium 3.6 mmol/L (3.5-5.1)
[2021-01-08 07:44] LABS: Basophils % 0.4 % (0-1.3); Hematocrit 30.5 % (36.0-45.0); Lymphocytes % 30.5 % (15.3-44.8); MPV 8.6 fL (7.6-11.3); RBC Red Blood Cell Count 4.17 M/uL (3.86-4.86)
[2021-01-08] MEDS: LIPASE/PROTEASE/AMYLASE CAP PO SCH (08:31)
[2021-01-08] MEDS: GABAPENTIN 100 MG CAP PO SCH (08:32)
[2021-01-08] MEDS: SERTRALINE HCL 50 MG TAB PO SCH (08:32)
[2021-01-08] MEDS: PANTOPRAZOLE 40MG TABLET PO SCH (08:32)
[2021-01-08] MEDS: NICOTINE 21 MG/PAT TD SCH (08:33)
[2021-01-08] MEDS ORDERED: POTASSIUM CL SA 10 MEQ TAB PO ONE ×2 (08:42→09:00)
[2021-01-08 10:04] VITALS: BP 148/78; TEMP 97.8
[2021-01-08 10:18] LABS: Blood Morphology Comment NOT SEEN (NOT SEEN); Platelet Estimate ADEQ; White Blood Cell Scan OK (OK)
--- NOTE | 2021-01-08 21:38 | P.DS ---
Admission Date: 01/06/21 Discharge Date: 01/08/21 Primary Care Provider: Dr. Colby, Dr. Florez Disposition: ROUTINE DISCHARGE Discharge Condition: GOOD Reason for Admission: Intractable vomiting/abdominal pain Procedures: CT Abd/Pelvis (01/05): No acute intra-abdominal abnormality is identified. There is a linear serpiginous band of increased density in the left breast possibly postsurgical. Clinical and mammographic evaluation is recommended. CTA Abd/pelvis (01/07): No evidence of mesenteric ischemia. No bulky adenopathy, bowel obstruction or free fluid. No free air seen. No acute solid organ abnormality. Problem List: Intractable nausea/vomiting/abdominal pain Leukocytosis likely secondary to CLL Hypertension COPD secondary to tobacco abuse Brief History of Present Illness: 60-year-old female with history of CLL, hypertension, COPD, CAD, chronic pancreatitis, mitral valve prolapse presents emergency department for abdominal pain, nausea and vomiting. Patient reports that she has had ongoing epigastric pain with nausea and vomiting over the course of the last 2 days. Patient reports severe cramping/sharp epigastric pain with some tenderness to palpation in the epigastric and left upper quadrant. Labs significant for elevated white blood cell count [id number], history of CLL with frequently elevated white blood cell count, pro calcitonin negative lipase 225. Patient required multiple doses of narcotic pain medication and was still having refractory pain, also still vomiting after 3 doses of anti emetics. CT abdomen pelvis performed which did not identify any acute findings. Patient previous cholecystectomy, appendectomy. ED provider wishes to admit patient for further evaluation and management of intractable nausea and vomiting/abdominal pain. Hospital Course: She was treated with empiric antibiotics. Procal was negative. Her initial CT was negative, however she reported severe abdominal and R flank pain, even to light touch. She underwent CTA which was normal and ruled out mesenteric ischemia. She had severe abdominal pain to even light touch diffusely, including her right flank and CVA area. She however did not have tenderness when her bowel sounds were auscultated, nor when she sat up or walked around the medical floor. Patient had improvement o jered symptoms, was noted to go off medical floor to obtain extra snacks / food. On day of discharge she was ambulating around the medical floor without any difficulty or pain. She was tolerated a GI soft diet with extra snacks she bought without nausea/vomiting. She stated she was ready for discharge and was planning to follow up with her GI physician. She was discharged home with 5 days of antibiotics. She is to follow up with her PCP and her GI physician. She did have an elevated CRP and leukocytosis throughout her hospitalization which was around the same level of prior CBCs, likely due to her CLL. Vital Signs/Physical Exam: Physical Exam General: Alert, In no apparent distress HEENT: Atraumatic, PERRLA, Mucous membr. moist/pink Respiratory: Clear to auscultation bilaterally, Normal air movement Cardiovascular: Regular rate/rhythm, Normal S1 S2 Capillary refill: <2 Seconds Gastrointestinal: Normal bowel sounds, soft, nontender, no rebound, no guarding. reported some mild cramping pain after exam was completed Musculoskeletal: No tenderness Integumentary: No rashes Temp Pulse Resp BP Pulse Ox 97.8 F 97 H 18 148/78 H 97 01/08/21 08:00 01/08/21 08:00 01/08/21 08:00 01/08/21 08:00 01/08/21 08:00 Laboratory Data at Discharge: WBC 19.70 K/uL (4.3-10.9) H D 01/08/21 05:39 Hgb 9.3 g/dL (12.0-15.0) L 01/08/21 05:39 Hct 30.5 % (36.0-45.0) L 01/08/21 05:39 Plt Count 387 K/uL (152-406) 01/08/21 05:39 Sodium 141 mmol/L (136-145) 01/08/21 05:39 Potassium 3.6 mmol/L (3.5-5.1) 01/08/21 05:39 BUN 7 mg/dL (7-18) 01/08/21 05:39 Creatinine 0.81 mg/dL (0.55-1.3) 01/08/21 05:39 Glucose 158 mg/dL (74-106) H 01/08/21 05:39 Magnesium 2.0 mg/dL (1.8-2.4) 01/08/21 05:39 Total Bilirubin 0.2 mg/dL (0.2-1.0) 01/07/21 05:30 AST 15 U/L (15-37) 01/07/21 05:30 ALT 19 U/L (12-78) 01/07/21 05:30 Alkaline Phosphatase 119 U/L (45-117) H 01/07/21 05:30 Lipase 232 U/L (73-393) 01/07/21 05:30 Home Medications: Albuterol Neb [Proventil 0.083% Neb Soln] 1 amp NEB Q6HP PRN 01/06/21 Amitriptyline [Elavil*] 25 mg PO BEDTIME 01/06/21 Dicyclomine HCl 20 mg PO DAILYPRN PRN 01/06/21 Furosemide [Lasix*] 40 mg PO DAILY 01/06/21 Gabapentin [Neurontin*] 200 mg PO BID 01/06/21 Ipratropium/Albuterol Sulfate [Combivent Respimat 20-100 Mcg] 2 puff IH QIDP PRN 01/06/21 Lipase/Protease/Amylase [Bev Boyd 12,000 Units Capsule] 3 cap PO ACHS 01/06/21 Losartan Potassium [Cozaar] 100 mg PO DAILY 01/06/21 Montelukast Sodium [Singulair] 10 mg PO DAILY 01/06/21 Omeprazole [Prilosec] 40 mg PO DAILY 01/06/21 Potassium Chloride 20 meq PO DAILY 01/06/21 Risperidone [Risperdal] 1 mg PO BEDTIME 01/06/21 Sertraline [Zoloft*] 50 mg PO DAILY 01/06/21 Sucralfate [Carafate*] 1 g PO ACHS 01/06/21 carvediloL [Carvedilol] 6.25 mg PO BID 01/06/21 hydrOXYzine HCL [Atarax*] 25 mg PO Q6HP PRN 01/06/21 Ciprofloxacin HCl [Cipro 500 MG Tablet] 500 mg PO BID 5 Days #10 tab 01/08/21 metroNIDAZOLE [Flagyl] 500 mg PO Q8H 5 Days #15 tablet 01/08/21 New Medications: Ciprofloxacin HCl [Cipro 500 MG Tablet] 500 mg PO BID 5 Days #10 tab metroNIDAZOLE [Flagyl] 500 mg PO Q8H 5 Days #15 tablet Physician Discharge Instructions: Both CT scans of your abdomen were normal - they did not show any inflammation, obstruction, fluid collection, abnormality with your blood vessels. You are discharged home with 2 antibiotics - ciprofloxacin and flagyl. Please follow up their PCP and 3-5 days, with your paint stockman, Dr. Florez in 1-2 weeks. Continue your home medications as previously prescribed. Please hold off on taking your Lasix and your blood pressure medication until you follow up with your PCP in the next few days. You were slightly dehydrated and had low-normal blood pressure. Diet: Motley Activity: Ad fam Followup: Jacinto Florez MD [Primary Care Provider] - 1-2 Weeks Time spent managing pt's care (in minutes): 35
== END 2021-01-08 10:10 | disposition home or self-care (01) | DRG 392 ==
LOC: ER 19:41 → ERHOLD 01-06 02:16 → 2ND 01-06 04:50 → OBSVTOIN 01-06 11:07
PROVIDERS: ADMIT Hospitalist; ATTEND Hospitalist
DX: R11.2 Nausea with vomiting, unspecified (principal); C91.10 Chronic lymphocytic leukemia of B-cell type not having achieved remission; K86.1 Other chronic pancreatitis; F17.210 Nicotine dependence, cigarettes, uncomplicated; I10 Essential (primary) hypertension; J44.9 Chronic obstructive pulmonary disease, unspecified; R10.13 Epigastric pain; I25.2 Old myocardial infarction; Z88.5 Allergy status to narcotic agent; Z88.8 Allergy status to other drugs, medicaments and biological substances; Z88.1 Allergy status to other antibiotic agents; Z88.0 Allergy status to penicillin; Z91.048 Other nonmedicinal substance allergy status; Z86.73 Personal history of transient ischemic attack (TIA), and cerebral infarction without residual deficits; Z90.49 Acquired absence of other specified parts of digestive tract; Z79.899 Other long term (current) drug therapy; Z90.710 Acquired absence of both cervix and uterus; Z20.822 Contact with and (suspected) exposure to COVID-19
CPT/HCPCS: 36415; 74174; 74177; 80048; 80053; 80076; 81003; 81015; 83605; 83690; 83735; 84132; 84145; 84439; 84443; 85025; 85652; 86140; 87040; 87086; 87088; 93005; 94640; 96365; 96375; 99285; G0378; J0696; J2270; J2405; J2550; J3480; J7030; J7040; Q9967; U0003

== ENCOUNTER 2021-02-16 17:49 | Emergency (ER) | payer OTHER ==
--- OUTSIDE RECORDS SUMMARY | 2021-02-16 17:53 | XMS REPORT | Continuity of Care Document ---
:1960 Author Organization [facility] t Address [address] [place] [address] Support Name Relationship Address Phone [facility] CARI Primary Care Physician [address] [phone] [place] [address] RULA KIDD MD Attending Provider [address] [phone] 11 [place] [address] RULA KIDD MD Attending Provider [address] [phone] [place] [address] DINO CHAPPELL, A Emergency Provider [address] [facility] [place] [address] TANYA Next of Kin [address] [place] [address] MIKIE CHAPPELL, E Emergency Provider [address] [facility] [place] [address] SHAMAR CHAPPELL, L Emergency Provider [address] [place] [address] DAPHNE CHAPPELL Attending Provider [address] [place] [address] JANICE CHAPPELL, M Emergency Provider [address] [place] [address] OUTTEN DO Emergency Provider [address] [place] [address] JAIRO CHAPPELL, C Emergency Provider [address] [facility] [place] [address] MALENA CHAPPELL MD R Emergency Provider [address] [phone] [place] [address] DO ADAN LEOS Primary Care Physician [address] [phone] [place] [address] MD ADRI Emergency Provider Unavailable Unavailable MD RENÉ A Emergency Provider [facility] [address] DO NIEVES Emergency Provider [address] [facility] [email or web address] [address] JERARDO RODRIGUES MD Emergency Provider [address] [facility] [place] [address] MD Beba IBANEZ Emergency Provider [address] [place] [address] [place] [address] Care Team Providers Name Role Phone Unavailable Unavailable Unavailable Problems This patient has no known problems. Allergies, Adverse Reactions, Alerts This patient has no known allergies or adverse reactions. Social History Smoking Status Start Date Stop Date Source Never Smoker [place] [facility] Medications Ordered Filled Start Stop Current Ordering Indication Dosage Frequency Signature Comments Components Source Medication Medication Date Date Medication? Clinician (SIG) Name Name Creon Creon No Creon [place] 24,000-76,0 24,000-76,0 24,000-76, da 00-120,000 00-120,000 [...] transdermal weekly al patch APPLY patch APPLY [facility] ONE PATCH ONE PATCH l patch [...] Comments Source Height 2020-06-11 00:00:00 65 [in_i] [facility] [facility] BMI (Body Mass 2020-06-11 00:00:00 34.9 kg/m2 [place] qm consultant [facility] Body Weight 2020-06-11 00:00:00 210 [lb_av] [place] [facility] Procedures This patient has no known procedures. Plan of Care Planned Activity Planned Date Details Comments Source Future Appointment 2021-03-25 00:00:00 Rosales Huff, [address] [facility] [address]ran; , [place] Program [id number] Encounters Start End Encounter Admission Attending Care Care Encounter Source Date/Time Date/Time Type Type Clinicians Facility Department ID 2020-12-24 2020-12-24 [place] - [id number] [place] 00:00:00 00:00:00 MD Refugio: Lesli ramires [address] [facility] [address], [facility] [address] h , Ph. Program (979) --20072020-09-24 2020-09-24 [place] - [id number] [place] 00:00:00 00:00:00 MD Refugio: Lesli ramires [address] [facility] [address], [facility] [address] h , Ph. Program (979) --20072020-06-11 2020-06-11 Rosales [place] - [id number] [place] 00:00:00 00:00:00 MD Refugio: Lesli ramires [address] [facility] [address], [facility] [address] h , Ph. Program (979) --20072020-03-12 2020-03-12 [place] - [id number] [place] 00:00:00 00:00:00 MD Refugio: Lesli ramires [address] [facility] [place] [address] [place] [phone] h , Ph. Program (979) --20072019-12-12 2019-12-12 [place] - [id number] [place] 00:00:00 00:00:00 MD Refugio: Lesli ramires [address] [facility] [address], [facility], Behavioral [facility] [address] [facility] , Ph. (979) --20072019-08-22 2019-08-22 [place] - [id number] [place] 00:00:00 00:00:00 MD Refugio: Lesli ramires [address] [facility] [address], Behavioral [facility] [address] Leonardo bautista , Ph. (014) --20072019-07-18 2019-07-18 [place] [facility] [id number] [facility] MD Refugio: Lesli ramires [address] [facility] [address], Behavioral [facility] [place] [address] Leonardo bautista , Ph. (440) --20072019-06-11 2019-06-11 Outpatient [facility] CAR [address] [facility] 12:15:00 12:15:00 Results This patient has no known results.
[2021-02-16] MEDS ORDERED: PROMETHAZINE INJ 25 MG/ML AMP ONE ×2 (21:03→22:31)
[2021-02-16] MEDS ORDERED: NA CHLORIDE 0.9% 500 ML ONE ×2 (21:04→23:08)
[2021-02-16] MEDS ORDERED: FAMOTIDINE 20 MG/2 ML VIAL IV ONE (21:04)
[2021-02-16] MEDS ORDERED: MORPHINE 4 MG/ML SYR ONE ×2 (21:04→22:31)
[2021-02-16 21:31] LABS: Absolute Lymphocytes (CBC) 6.2 K/uL (0.7-4.9); Basophils % 0.8 % (0-1.3); Hematocrit 30.2 % (36.0-45.0); Lymphocytes % 25.5 % (15.3-44.8); MPV 8.1 fL (7.6-11.3)
[2021-02-16 21:42] LABS: ALT/SGPT 15 U/L (12-78); AST/SGOT 15 U/L (15-37); Alkaline Phosphatase 170 U/L (45-117); BUN Blood Urea Nitrogen 13 mg/dL (7-18); Bicarbonate 23 mmol/L (21-32); Bilirubin Direct < 0.1 mg/dL (0-0.2); Bilirubin Total 0.2 mg/dL (0.2-1.0); Glucose Level 118 mg/dL (74-106); Lipase 231 U/L (73-393); Potassium 3.4 mmol/L (3.5-5.1); Protein, Total 7.6 g/dL (6.4-8.2); Sodium Level 140 mmol/L (136-145)
[2021-02-16] MEDS ORDERED: DIPHENHYDRAMINE 50 MG/ML VIAL ONE (21:55)
[2021-02-16 22:28] LABS: Blood Morphology Comment NOT SEEN (NOT SEEN); Platelet Estimate ADEQ
[2021-02-16] MEDS ORDERED: CEFTRIAXONE/SWI 1gm 1 GM/10 ML SYR ONE (22:32)
[2021-02-16] MEDS ORDERED: METRONIDAZOLE 500mg IVPB 500 MG/100 ML BAG IV ONE (22:32)
[2021-02-16 23:31] LABS: Urine Blood Negative (Negative); Urine Glucose Negative (Negative); Urine Protein Negative (Negative); Urine Specific Gravity 1.015 (1.005-1.030); Urine pH 5.5 (5.0-7.0)
[2021-02-17] MEDS ORDERED: PROMETHAZINE INJ 25 MG/ML AMP ONE (00:52)
[2021-02-17] MEDS ORDERED: NA CHLORIDE 0.9% 500 ML ONE (00:53)
[2021-02-17] MEDS ORDERED: MORPHINE 4 MG/ML SYR ONE (00:53)
--- NOTE | 2021-02-17 01:53 | EDPHYS ---
Physician Documentation [facility] Name: Leila Stein Age: 60 yrs Sex: Female : 1960 Arrival Date: 02/16/2021 Time: 17:53 Bed 3 Private MD: ED Physician Kendrick Fischer HPI: 02/16 21:19 This 60 yrs old Black Female presents to ER via Ambulatory with complaints of Abdominal mh7 Pain, Nausea/Vomiting. 21:19 The patient presents with abdominal pain in the upper abdomen. Onset: The mh7 symptoms/episode began/occurred 2 day(s) ago. The symptoms do not radiate. Associated signs and symptoms: Pertinent positives: nausea, vomiting, and diarrhea, Pertinent negatives: anorexia, blood in stools, chest pain, constipation, dysuria, fever, headache, hematuria, palpitations, shortness of breath, vaginal discharge, vomiting blood. The symptoms are described as intermittent, vague, waxing/waning. Modifying factors: The symptoms are alleviated by nothing, the symptoms are aggravated by nothing. Severity of pain: At its worst the pain was moderate yesterday, in the emergency department the pain is unchanged. The patient has experienced similar episodes in the past, multiple times. Historical: - Allergies: 18:19 Demerol; tw2 18:19 Diphenhydramine; tw2 18:19 Ibuprofen; tw2 18:19 Kenalog; tw2 18:19 levabid; tw2 18:19 Levaquin; tw2 18:19 Naloxone; tw2 18:19 Norepinephrine Bitartrate; tw2 18:19 Penbutolol; tw2 18:19 PENICILLINS; tw2 18:19 PENTAZOCINE; tw2 18:19 Talwin; tw2 18:19 Triamcinolone Acetonide; tw2 18:19 Tape; tw2 - Home Meds: 18:19 alprazolam 0.5 mg Oral tab [Active]; carvedilol 6.25 mg Oral tab 1 tab 2 times per day tw2 [Active]; Creon 24,000-76,000 -120,000 unit Oral cpDR [Active]; furosemide 40 mg Oral tab 1 tab once daily [Active]; gabapentin 100 mg Oral cap 2 caps BID [Active]; hydroxyzine HCl 25 mg Oral tab 1 tab every 4-6 hrs as needed [Active]; losartan 100 mg Oral tab 1 tab once daily [Active]; meclizine 12.5 mg Oral tab 2 tabs 3 times per day [Active]; methocarbamol 750 mg Oral tab 1 tab every 8 hours [Active]; metoclopramide HCl 10 mg Oral tab 1 tab twice a day [Active]; montelukast 10 mg Oral tab 1 tab once daily [Active]; omeprazole 40 mg Oral cpDR 1 cap once daily [Active]; risperidone 1 mg Oral tab 1 tab once daily [Active]; sertraline 50 mg Oral tab 1 tab once daily [Active]; - 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 - Social history:: Smoking status: . ROS: 21:19 Constitutional: Negative for fever, chills, and weight loss, Eyes: Negative for injury, mh7 pain, redness, and discharge, ENT: Negative for injury, pain, and discharge, Neck: Negative for injury, pain, and swelling, Cardiovascular: Negative for chest pain, palpitations, and edema, Respiratory: Negative for shortness of breath, cough, wheezing, and pleuritic chest pain, Back: Negative for injury and pain, : Negative for injury, bleeding, discharge, and swelling, MS/Extremity: Negative for injury and deformity, Skin: Negative for injury, rash, and discoloration, Neuro: Negative for headache, weakness, numbness, tingling, and seizure, Psych: Negative for depression, anxiety, suicide ideation, homicidal ideation, and hallucinations, Allergy/Immunology: Negative for hives, rash, and allergies, Endocrine: Negative for neck swelling, polydipsia, polyuria, polyphagia, and marked weight changes, Hematologic/Lymphatic: Negative for swollen nodes, abnormal bleeding, and unusual bruising. Exam: 21:19 Constitutional: This is a well developed, well nourished patient who is awake, alert, mh7 and in no acute distress. Head/Face: Normocephalic, atraumatic. Eyes: Pupils equal round and reactive to light, extra-ocular motions intact. Lids and lashes normal. Conjunctiva and sclera are non-icteric and not injected. Cornea within normal limits. Periorbital areas with no swelling, redness, or edema. Neck: Trachea midline, no thyromegaly or masses palpated, and no cervical lymphadenopathy. Supple, full range of motion without nuchal rigidity, or vertebral point tenderness. No Meningismus. Chest/axilla: Normal chest wall appearance and motion. Nontender with no deformity. No lesions are appreciated. Cardiovascular: Regular rate and rhythm with a normal S1 and S2. No gallops, murmurs, or rubs. Normal PMI, no JVD. No pulse deficits. Respiratory: Lungs have equal breath sounds bilaterally, clear to auscultation and percussion. No rales, rhonchi or wheezes noted. No increased work of breathing, no retractions or nasal flaring. 21:19 Back: No spinal tenderness. No costovertebral tenderness. Full range of motion. Skin: Warm, dry with normal turgor. Normal color with no rashes, no lesions, and no evidence of cellulitis. MS/ Extremity: Pulses equal, no cyanosis. Neurovascular intact. Full, normal range of motion. Neuro: Awake and alert, GCS 15, oriented to person, place, time, and situation. Cranial nerves II-XII grossly intact. Motor strength 5/5 in all extremities. Sensory grossly intact. Cerebellar exam normal. Normal gait. Psych: Awake, alert, with orientation to person, place and time. Behavior, mood, and affect are within normal limits. 21:19 Abdomen/GI: Inspection: obese Bowel sounds: normal, in all quadrants, Palpation: moderate abdominal tenderness, in the epigastric area, right upper quadrant and left upper quadrant, mass, is not appreciated, rebound tenderness, is not appreciated, voluntary guarding, is elicited in the epigastric area, right upper quadrant and left upper quadrant, involuntary guarding, is not appreciated, no appreciated organomegaly, Rectal exam: the exam is deferred, because of patient request, Indicators: McBurney's point is not tender, Martínez's sign is negative, Rovsing's sign is negative, Obturator sign is negative, Psoas sign is negative, Liver: no appreciated palpable abnormalities, Hernia: not appreciated. Vital Signs: 18:16 BP 126 / 79; Pulse 84; Resp 17; Temp 97.9(TE); Pulse Ox 100% on R/A; Weight 85.28 kg tw2 (R); Height 5 ft. 2 in. (157.48 cm); Pain 10; 02/17 00:41 Pulse 84; Resp 18; Pulse Ox 95% on R/A; wh 01:48 BP 116 / 59; Pulse 82; Resp 18; Pulse Ox 95% on R/A; wh 02/16 18:16 Body Mass Index 34.39 (85.28 kg, 157.48 cm) tw2 MDM: 01:49 Differential diagnosis: bowel obstruction, diverticulitis, gastritis, gastroesophageal 7 reflux disease, non-specific abd pain, pancreatitis, Peptic Ulcer Disease, Perf. Duodenal Ulcer, urinary tract infection. Data reviewed: vital signs, nurses notes, old medical records, lab test result(s), amylase and lipase, CBC, electrolytes, urinalysis, EKG, radiologic studies, CT scan. Data interpreted: Pulse oximetry: on room air is 95 %. Interpretation: normal. Counseling: I had a detailed discussion with the patient and/or guardian regarding: the historical points, exam findings, and any diagnostic results supporting the discharge/admit diagnosis, lab results, radiology results, the need for outpatient follow up, to return to the emergency department if symptoms worsen or persist or if there are any questions or concerns that arise at home. Response to treatment: the patient's symptoms have resolved after treatment, the patient's blood pressure is in an acceptable range, mental status has returned to baseline, the patient no longer shows bradycardia, the patient is not short of breath, the patient is not tachycardic, the patient's pain is gone, the patient's temperature has normalized. 01:52 Patient medically screened. [facility] 02/16 20:37 Order name: Basic Metabolic Panel; Complete Time: 21:48 [facility] 02/16 20:37 Order name: CBC with Diff; Complete Time: 22:39 [facility] 02/16 20:37 Order name: Hepatic Function; Complete Time: 21:48 [facility] 02/16 20:37 Order name: Lipase; Complete Time: 21:48 [facility] 02/16 22:28 Order name: Manual Differential; Complete Time: 22:39 EDMS 02/16 21:24 Order name: CT Abd/Pelvis - IV Contrast Only [facility] 02/16 23:21 Order name: Lactate; Complete Time: 00:16 [facility] 02/16 23:21 Order name: Procalcitonin; Complete Time: 01:30 [facility] 02/16 23:30 Order name: Urine Dipstick-Ancillary; Complete Time: 23:32 [facility] 02/16 23:41 Order name: SARS-COV-2 RT PCR; Complete Time: 23:41 [facility] 02/16 20:37 Order name: IV Saline Lock; Complete Time: 21:13 [facility] 02/16 20:37 Order name: Labs collected and sent; Complete Time: 21:13 [facility] 02/16 20:37 Order name: EKG - Nurse/Tech; Complete Time: 20:55 [facility] 02/16 20:37 Order name: Urine Dipstick-Ancillary (obtain specimen); Complete Time: 23:32 mh7 Administered Medications: 02/16 21:13 Drug: NS 0.9% 500 ml Route: IV; Rate: bolus; Site: right wrist; [facility] 02/17 01:50 Follow up: Response: No adverse reaction; IV Status: Completed infusion; IV Intake: wh 500ml 02/16 21:13 Drug: morphine 4 mg Route: IVP; Site: right wrist; mg2 22:22 Follow up: Response: No adverse reaction; Pain is decreased; RASS: Alert and Calm (0) 21:13 Drug: Phenergan (promethazine) 12.5 mg Route: IVP; Site: right wrist; mg2 22:22 Follow up: Response: No adverse reaction; Nausea is decreased 21:14 Drug: Pepcid (famotidine) 20 mg Route: IVP; Site: right wrist; mg2 22:22 Follow up: Response: No adverse reaction 22:15 Drug: morphine 4 mg {Note: RASS 0.} Route: IVP; Site: right wrist; 02/17 01:50 Follow up: Response: No adverse reaction 02/16 22:17 Drug: Phenergan (promethazine) 12.5 mg Route: IVP; Site: right wrist; 02/17 01:50 Follow up: Response: No adverse reaction 02/16 22:19 Drug: Rocephin - (cefTRIAXone) 1 grams Route: IVPB; Infused Over: 30 mins; Site: right wrist; 02/17 01:51 Follow up: Response: No adverse reaction; IV Status: Completed infusion 02/16 22:21 Drug: Flagyl (metroNIDAZOLE) 500 mg Volume: 100 ml; Route: IVPB; Rate: 200 ml/hr; Infused Over: 30 mins; Site: right wrist; 02/17 01:50 Follow up: Response: No adverse reaction; IV Status: Completed infusion; IV Intake: 100ml 02/16 22:53 Drug: NS 0.9% 500 ml Route: IV; Rate: bolus; Site: right wrist; 02/17 01:49 Follow up: Response: No adverse reaction; IV Status: Completed infusion; IV Intake: 500ml 00:40 Drug: NS 0.9% 500 ml Route: IV; Rate: bolus; Site: right wrist; 01:49 Follow up: Response: No adverse reaction; IV Status: Completed infusion; IV Intake: 500ml 00:41 Drug: morphine 4 mg Route: IVP; Site: right wrist; 01:49 Follow up: Response: No adverse reaction 00:41 Drug: Phenergan (promethazine) 12.5 mg Route: IVP; Site: right wrist; 01:49 Follow up: Response: No adverse reaction Disposition: 02/17/21 01:52 Discharged to Home. Impression: Upper abdominal pain, unspecified, Nausea with vomiting, unspecified, Diarrhea, unspecified. - Condition is Stable. - Discharge Instructions: Diarrhea, Adult, Nausea and Vomiting, Adult, Abdominal Pain, Adult, Vkfx-[id number]-Metf. - Prescriptions for Zofran ODT 4 mg Oral tablet,disintegrating - place 1 tablet by TRANSLINGUAL route every 8 hours As needed; 6 tablet. Bentyl 20 mg Oral Tablet - take 1 tablet by ORAL route every 6 hours As needed; 20 tablet. Flagyl 500 mg Oral Tablet - take 1 tablet by ORAL route every 8 hours for 7 days; 21 tablet. Bactrim DS 800- 160 mg Oral Tablet - take 1 tablet by ORAL route every 12 hours for 7 days; 14 tablet. Pepcid 20 mg Oral Tablet - take 1 tablet by ORAL route every 12 hours for 5 days; 10 tablet. - Medication Reconciliation Form, Thank You Letter, Antibiotic Education, Prescription Opioid Use form. - Follow up: Private Physician; When: 1 - 2 days; Reason: Worsening of condition, Recheck today's complaints, Continuance of care, Re-evaluation by your physician. - Problem is an acute exacerbation. - Symptoms have improved. Signatures: Dispatcher [employer] [facility] Krissy Viveros RN RN tw2 Yue Long, RN RN Kirit Montes RN RN mg2 Kendrick Fischer MD MD mh7 Corrections: (The following items were deleted from the chart) 02/16 22:41 21:40 CORONAVIRUS+[email or web address] ordered. [facility] 02/17 02:05 01:52 02/17/2021 01:52 Discharged to Home. Impression: Upper abdominal pain, mg2 unspecified; Nausea with vomiting, unspecified; Diarrhea, unspecified. Condition is Stable. Forms are Medication Reconciliation Form, Thank You Letter, Antibiotic Education, Prescription Opioid Use. Follow up: Private Physician; When: 1 - 2 days; Reason: Worsening of condition, Recheck today's complaints, Continuance of care, Re-evaluation by your physician. Problem is an acute exacerbation. Symptoms have improved. mh7
--- NOTE | 2021-02-17 01:53 | ER ---
Nurse's Notes [facility] Name: Leila Stein Age: 60 yrs Sex: Female : 1960 Arrival Date: 02/16/2021 Time: 17:53 Bed 3 Private MD: Diagnosis: Upper abdominal pain, unspecified;Nausea with vomiting, unspecified;Diarrhea, unspecified Presentation: 02/16 18:06 Note pt eating cheetos in lobby at this time, nad. tw2 18:16 Chief complaint: Patient states: i suffer with pancreatitis, and i believe it has tw2 flared up, i am nauseous and vomiting, it started a couple of days ago, and i am having some diarrhea. Coronavirus screen: diarrhea, nausea, vomiting. Client presents with at least one sign or symptom that may indicate coronavirus-19. Standard/surgical mask placed on the client. Provider contacted for isolation considerations. Ebola Screen: Patient denies travel to an Ebola-affected area in the 21 days before illness onset. Initial Sepsis Screen: Does the patient meet any 2 criteria? No. Patient's initial sepsis screen is negative. Does the patient have a suspected source of infection? No. Patient's initial sepsis screen is negative. Risk Assessment: Do you want to hurt yourself or someone else? Patient reports no desire to harm self or others. Onset of symptoms was February 16, 2021. 18:16 Method Of Arrival: Ambulatory tw2 18:16 Acuity: JARROD 3 tw2 Triage Assessment: 18:19 General: Appears in no apparent distress. obese, well groomed, Behavior is calm, tw2 cooperative, appropriate for age. Pain: Complains of pain in abdomen. GI: Reports nausea, vomiting. Historical: - Allergies: 18:19 Demerol; tw2 18:19 Diphenhydramine; tw2 18:19 Ibuprofen; tw2 18:19 Kenalog; tw2 18:19 levabid; tw2 18:19 Levaquin; tw2 18:19 Naloxone; tw2 18:19 Norepinephrine Bitartrate; tw2 18:19 Penbutolol; tw2 18:19 PENICILLINS; tw2 18:19 PENTAZOCINE; tw2 18:19 Talwin; tw2 18:19 Triamcinolone Acetonide; tw2 18:19 Tape; tw2 - Home Meds: 18:19 alprazolam 0.5 mg Oral tab [Active]; carvedilol 6.25 mg Oral tab 1 tab 2 times per day tw2 [Active]; Creon 24,000-76,000 -120,000 unit Oral cpDR [Active]; furosemide 40 mg Oral tab 1 tab once daily [Active]; gabapentin 100 mg Oral cap 2 caps BID [Active]; hydroxyzine HCl 25 mg Oral tab 1 tab every 4-6 hrs as needed [Active]; losartan 100 mg Oral tab 1 tab once daily [Active]; meclizine 12.5 mg Oral tab 2 tabs 3 times per day [Active]; methocarbamol 750 mg Oral tab 1 tab every 8 hours [Active]; metoclopramide HCl 10 mg Oral tab 1 tab twice a day [Active]; montelukast 10 mg Oral tab 1 tab once daily [Active]; omeprazole 40 mg Oral cpDR 1 cap once daily [Active]; risperidone 1 mg Oral tab 1 tab once daily [Active]; sertraline 50 mg Oral tab 1 tab once daily [Active]; - 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 - Social history:: Smoking status: . Screenin:15 Abuse screen: Denies threats or abuse. Denies injuries from another. Nutritional mg2 screening: No deficits noted. Tuberculosis screening: No symptoms or risk factors identified. Fall Risk IV access (20 points). Assessment: 21:14 General: Appears in no apparent distress. comfortable, Behavior is calm, cooperative. mg2 Pain: Complains of pain in abdomen. Neuro: Level of Consciousness is awake, alert, obeys commands, Oriented to person, place, time, situation. Cardiovascular: Capillary refill < 3 seconds Patient's skin is warm and dry. Respiratory: Airway is patent Respiratory effort is even, unlabored, Respiratory pattern is regular, symmetrical. GI: Reports upper abdominal pain, nausea, vomiting. : No signs and/or symptoms were reported regarding the genitourinary system. EENT: No signs and/or symptoms were reported regarding the EENT system. Derm: Skin is intact, is healthy with good turgor, Skin is pink, warm \T\ dry. normal. Musculoskeletal: Circulation, motion, and sensation intact. Capillary refill < 3 seconds. 02/17 00:00 Reassessment: Patient appears in no apparent distress at this time. Patient and/or wh family updated on plan of care and expected duration. Pain level reassessed. Patient is alert, oriented x 3, equal unlabored respirations, skin warm/dry/pink. 01:49 Reassessment: Patient appears in no apparent distress at this time. Patient and/or wh family updated on plan of care and expected duration. Pain level reassessed. Patient is alert, oriented x 3, equal unlabored respirations, skin warm/dry/pink. Vital Signs: 02/16 18:16 BP 126 / 79; Pulse 84; Resp 17; Temp 97.9(TE); Pulse Ox 100% on R/A; Weight 85.28 kg tw2 (R); Height 5 ft. 2 in. (157.48 cm); Pain 10/10; 02/17 00:41 Pulse 84; Resp 18; Pulse Ox 95% on R/A; wh 01:48 BP 116 / 59; Pulse 82; Resp 18; Pulse Ox 95% on R/A; wh 02/16 18:16 Body Mass Index 34.39 (85.28 kg, 157.48 cm) tw2 ED Course: 02/16 17:53 Patient arrived in ED. ds1 18:17 Triage completed. tw2 18:19 Arm band placed on. tw2 20:12 Kenrdick Fischer MD is Attending Physician. [facility] 20:37 Yue Long, AMAURY is Primary Nurse. wh 21:00 Inserted saline lock: 22 gauge in right wrist, using aseptic technique. Blood collected.mg2 21:15 No provider procedures requiring assistance completed. mg2 21:20 Patient has correct armband on for positive identification. mg2 22:05 CT Abd/Pelvis - IV Contrast Only In Process Unspecified. EDMS 02/17 02:04 IV discontinued, intact, bleeding controlled, No redness/swelling at site. Pressure mg2 dressing applied. Administered Medications: 02/16 21:13 Drug: NS 0.9% 500 ml Route: IV; Rate: bolus; Site: right wrist; mg2 02/17 01:50 Follow up: Response: No adverse reaction; IV Status: Completed infusion; IV Intake: wh 500ml 02/16 21:13 Drug: morphine 4 mg Route: IVP; Site: right wrist; mg2 22:22 Follow up: Response: No adverse reaction; Pain is decreased; RASS: Alert and Calm (0) 21:13 Drug: Phenergan (promethazine) 12.5 mg Route: IVP; Site: right wrist; mg2 22:22 Follow up: Response: No adverse reaction; Nausea is decreased 21:14 Drug: Pepcid (famotidine) 20 mg Route: IVP; Site: right wrist; mg2 22:22 Follow up: Response: No adverse reaction 22:15 Drug: morphine 4 mg {Note: RASS 0.} Route: IVP; Site: right wrist; 02/17 01:50 Follow up: Response: No adverse reaction 02/16 22:17 Drug: Phenergan (promethazine) 12.5 mg Route: IVP; Site: right wrist; 02/17 01:50 Follow up: Response: No adverse reaction 02/16 22:19 Drug: Rocephin - (cefTRIAXone) 1 grams Route: IVPB; Infused Over: 30 mins; Site: right wrist; 02/17 01:51 Follow up: Response: No adverse reaction; IV Status: Completed infusion 02/16 22:21 Drug: Flagyl (metroNIDAZOLE) 500 mg Volume: 100 ml; Route: IVPB; Rate: 200 ml/hr; Infused Over: 30 mins; Site: right wrist; 02/17 01:50 Follow up: Response: No adverse reaction; IV Status: Completed infusion; IV Intake: 100ml 02/16 22:53 Drug: NS 0.9% 500 ml Route: IV; Rate: bolus; Site: right wrist; 02/17 01:49 Follow up: Response: No adverse reaction; IV Status: Completed infusion; IV Intake: 500ml 00:40 Drug: NS 0.9% 500 ml Route: IV; Rate: bolus; Site: right wrist; 01:49 Follow up: Response: No adverse reaction; IV Status: Completed infusion; IV Intake: 500ml 00:41 Drug: morphine 4 mg Route: IVP; Site: right wrist; 01:49 Follow up: Response: No adverse reaction 00:41 Drug: Phenergan (promethazine) 12.5 mg Route: IVP; Site: right wrist; 01:49 Follow up: Response: No adverse reaction Intake: 01:49 IV: 500ml; Total: 500ml. 01:49 IV: 500ml; Total: 1000ml. 01:50 IV: 100ml; Total: 1100ml. 01:50 IV: 500ml; Total: 1600ml. Outcome: 01:52 Discharge ordered by . [email or web address] 02:04 Discharged to home ambulatory. mg2 02:04 Condition: stable 02:04 Discharge instructions given to patient, Instructed on discharge instructions, follow up and referral plans. medication usage, Demonstrated understanding of instructions, follow-up care, medications, Prescriptions given X 5 02:05 Patient left the ED. mg2 Signatures: Dispatcher [employer] EDNJ Gauri Lovelace ds1 Krissy Viveros RN RN tw2 Yue Long RN RN Kirit Montes RN RN mg2 Kendrick Fischer MD MD mh7
[2021-02-17 02:11] VITALS: TEMP 97.9
[2021-02-17 02:12] VITALS: O2SAT 95
[2021-02-17 02:13] VITALS: BP 116/59
--- NOTE | 2021-02-17 11:37 | RAD REPORT ---
EXAM DESCRIPTION: CT ABDOMEN AND PELVIS WITH CONTRAST CLINICAL HISTORY: Abd pain;Nausea / vomiting COMPARISON: 01/07/2021 TECHNIQUE: CT of the abdomen and pelvis performed following IV administration of iodinated contras t. This exam was performed according to our departmental dose-optimization program, which includes au tomated exposure control, adjustment of the mA and/or kV according to patient size and/or use of iter ative reconstruction technique. FINDINGS: Lung Bases: Minimal dependent atelectasis. Bones: Multilevel facet arthropathy of the spine. Mild osteoarthritic change of the bilateral hips. Abdomen: Liver: The liver has normal size and density. No intrahepatic biliary dilatation. Gallbladder: Prior cholecystectomy. Spleen, Pancreas, and Adrenal Glands: The spleen, pancreas, and adrenal glands are unremarkable. Kidneys: No hydronephrosis or obstructing calculus. Vasculature: Aortoiliac atherosclerosis. IVC is unremarkable. The portal vein is patent. The proxim al visceral and renal arteries are patent. Stomach: The stomach and duodenum have normal course. Other: No free intraperitoneal air. No free fluid or lymphadenopathy. Pelvis: Bladder: Urinary bladder is unremarkable. Bowel: No dilated loops of large or small bowel. Appendix: Not identified. Pelvis: Prior hysterectomy. IMPRESSION: 1. No acute inflammatory or obstructive process identified. Electronically signed by: Philip Hood 02/16/2021 10:26 PM CDT Due to temporary technical issues with the PACS/Fluency reporting system, reports are being signed by the in house radiologist without review as a courtesy to ensure prompt reporting. The interpreting r adiologist is fully responsible for the content of the report.
--- NOTE | 2021-02-18 07:26 | EKG ---
Test Date: 2021-02-16 Test Time: 21:05:27 Financial Wellness Coach: MEASUREMENT RESULTS: Intervals: Rate: 76 AL: 170 QRSD: 82 QT: 360 QTc: 405 Miracle: P: 63 AL: 170 QRS: 30 T: 33 INTERPRETIVE STATEMENTS: Normal sinus rhythm Cannot rule out Anterior infarct, age undetermined Abnormal ECG Compared to ECG 01/05/2021 19:56:22 Myocardial infarct finding now present Electronically Signed On 02-18-21 07:22:29 CDT by Lokesh Motta
== END 2021-02-17 02:05 | disposition home or self-care (01) ==
LOC: ER 17:49
DX: R10.10 Upper abdominal pain, unspecified (principal); R11.2 Nausea with vomiting, unspecified; R19.7 Diarrhea, unspecified; I11.0 Hypertensive heart disease with heart failure; I50.9 Heart failure, unspecified; Z20.822 Contact with and (suspected) exposure to COVID-19; Z86.73 Personal history of transient ischemic attack (TIA), and cerebral infarction without residual deficits; I25.2 Old myocardial infarction; C91.00 Acute lymphoblastic leukemia not having achieved remission
CPT/HCPCS: 96365; 96361; 93005; 85025; 80048; 36415; 80076; 83605; 81003; 83690; 84145; 74177; 96375; 99284; 96366; U0003; Q9967; J2550 ×3; J1200; J0696; J7040 ×3

== ENCOUNTER 2021-02-18 18:03 | Emergency (ER) | payer OTHER ==
--- OUTSIDE RECORDS SUMMARY | 2021-02-18 18:06 | XMS REPORT | Continuity of Care Document ---
:1960 [facility] t Address [address] [place] [address] Support Name Relationship Address Phone [facility] CARI Primary Care Physician [address] [phone] [place] [address] RULA KIDD MD Attending Provider [address] [phone] [place] [address] RULA KIDD MD Attending Provider [address] [phone] [place] [address] DINO CHAPPELL, A Emergency Provider [address] [place] [address] TANYA Next of Kin [address] [address] [address] [place] [address] [place] [address] MIKIE CHAPPELL, E Emergency Provider [address] [facility] [id number] [place] [address] SHAMAR CHAPPELL, L Emergency Provider [address] [place] [address] DAPHNE CHAPPELL Attending Provider [address] [place] [address] JANICE CHAPPELL, M Emergency Provider [address] [place] [address] OUTTEN DO Emergency Provider [address] [place] [address] JAIRO CHAPPELL, C Emergency Provider [address] [facility] [place] [address] MALENA CHAPPELL MD R Emergency Provider [address] [phone] [place] [address] DO ADAN LEOS Primary Care Physician [address] [place] [address] MD ADRI Emergency Provider Unavailable Unavailable MD RENÉ A Emergency Provider [facility] [place] [address] DO NIEVES Emergency Provider [address] [facility] [email or web address].[email or web address] [address] JERARDO RODRIGUES MD Emergency Provider [address] [facility] [place] [address] MD Beba IBANEZ Emergency Provider [address] [place] [address] [phone] [place] [address] Care Team Providers Name Role Phone Unavailable Unavailable Unavailable Problems This patient has no known problems. Allergies, Adverse Reactions, Alerts This patient has no known allergies or adverse reactions. 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 Plan of Care Planned Activity Planned Date Details Comments Source Future Appointment 2021-03-25 00:00:00 Rosales Huff, [address] [facility]; , [place] Program [id number] Encounters Start End Encounter Admission Attending Care Care Encounter Source Date/Time Date/Time Type Type Clinicians Facility Department ID 2020-12-24 2020-12-24 [place] - [id number] [place] 00:00:00 00:00:00 MD Refugio: Lesli ramires [address] [facility] [address], [facility] [phone] h , Ph. Program ([phone]) --20072020-09-24 2020-09-24 [place] - [id number] [place] 00:00:00 00:00:00 MD Refugio: Lesli ramires [address] [facility] [address] [address], [facility] [address] h , Ph. Program ([phone]) --20072020-06-11 2020-06-11 [place]ales [place] - [id number] [place] 00:00:00 00:00:00 MD Refugio: Lesli ramires [address] [facility] [address], [facility] [id number] h , Ph. Program ([phone]) --20072020-03-12 2020-03-12 [place]ales [place] - [id number] [place] 00:00:00 00:00:00 MD Refugio: Lesli ramires [address] [facility] [address] [place] [phone] h , Ph. Program ([phone]) --20072019-12-12 2019-12-12 Rosales [place] - [id number] [place] 00:00:00 00:00:00 MD Refugio: Lesli ramires [address] [facility] [address], [facility], [facility] [id number] [facility] , Ph. (979) --20072019-08-22 2019-08-22 [place]ales [place] - [id number] [place] 00:00:00 00:00:00 MD Refugio: Lesli ramires [address] [place] [address], [facility] [phone] Leonardo bautista , Ph. (255) --20072019-07-18 2019-07-18 [place] - [id number] [facility]:00 00:00:00 MD Refugio: Lesli ramires [address], Behavioral [facility] h [phone] Leonardo bautista , Ph. (362) --20072019-06-11 2019-06-11 Outpatient [facility] CAR [address] [facility] 12:15:00 12:15:00 Results This patient has no known results.
--- NOTE | 2021-02-18 18:43 | RAD REPORT ---
EXAM DESCRIPTION: RAD - Chest Single View - 02/18/2021 6:32 pm CLINICAL HISTORY: CHEST PAIN COMPARISON: Portable December 02, 2020 TECHNIQUE: AP portable chest image was obtained 02/18/2021 6:32 pm . FINDINGS: Lungs are clear. Heart and vasculature are normal. No measurable pleural effusion and no p neumothorax. No acute bony abnormality seen. No acute aortic findings suspected. IMPRESSION: No acute cardiopulmonary process. No significant change from comparison study.
[2021-02-18 19:24] LABS: Absolute Lymphocytes (CBC) 4.4 K/uL (0.7-4.9); Basophils % 0.9 % (0-1.3); Hematocrit 31.2 % (36.0-45.0); Lymphocytes % 19.1 % (15.3-44.8); MPV 8.2 fL (7.6-11.3); RBC Red Blood Cell Count 4.22 M/uL (3.86-4.86)
[2021-02-18] MEDS ORDERED: MORPHINE 4 MG/ML SYR ONE ×2 (19:29→20:08)
[2021-02-18] MEDS ORDERED: ONDANSETRON 4 MG/2 ML VIAL ONE (19:30)
[2021-02-18] MEDS ORDERED: PROMETHAZINE INJ 25 MG/ML AMP ONE (19:35)
[2021-02-18 19:40] LABS: ALT/SGPT 18 U/L (12-78); AST/SGOT 15 U/L (15-37); Albumin 3.2 g/dL (3.4-5.0); Alkaline Phosphatase 152 U/L (45-117); BUN Blood Urea Nitrogen 12 mg/dL (7-18); Bicarbonate 27 mmol/L (21-32); Bilirubin Direct < 0.1 mg/dL (0-0.2); Bilirubin Total 0.2 mg/dL (0.2-1.0); Glucose Level 120 mg/dL (74-106); Lipase 178 U/L (73-393); Magnesium 1.8 mg/dL (1.8-2.4); NT PRO-BNP 79 pg/mL (<125); Potassium 3.1 mmol/L (3.5-5.1); Protein, Total 7.8 g/dL (6.4-8.2); Sodium Level 141 mmol/L (136-145); Troponin (Emerg Dept Use Only) < 0.02 ng/mL (0.0-0.045)
[2021-02-18 19:41] LABS: Protime INR 1.25
[2021-02-18 19:55] LABS: Blood Morphology Comment NOT SEEN (NOT SEEN); Platelet Estimate ADEQ
[2021-02-18] MEDS ORDERED: POTASSIUM CL SA 10 MEQ TAB PO ONE (20:08)
--- NOTE | 2021-02-18 20:50 | ER ---
Nurse's Notes [facility] Name: Leila Stein Age: 60 yrs Sex: Female : 1960 Arrival Date: 02/18/2021 Time: 18:14 Bed 3 Private MD: Diagnosis: Chest pain, unspecified;Abdominal and pelvic pain Presentation: 02/18 18:14 Chief complaint: Patient states: nausea/vomiting/diarrhea x 24 hrs. Pt states "I was aa5 coming here for the vomiting and diarrhea and as soon as I got here I started having chest pain". 18:14 Coronavirus screen: diarrhea, nausea, vomiting. Ebola Screen: Patient negative for aa5 fever greater than or equal to 101.5 degrees Fahrenheit, and additional compatible Ebola Virus Disease symptoms. Initial Sepsis Screen: Does the patient meet any 2 criteria? No. Patient's initial sepsis screen is negative. Does the patient have a suspected source of infection? No. Patient's initial sepsis screen is negative. Risk Assessment: Do you want to hurt yourself or someone else? Patient reports no desire to harm self or others. Onset of symptoms was February 18, 2021. 18:14 Acuity: JARROD 3 aa5 18:14 Method Of Arrival: Ambulatory aa5 Historical: - Allergies: 18:23 Demerol; aa5 18:23 Diphenhydramine; aa5 18:23 Ibuprofen; aa5 18:23 Kenalog; aa5 18:23 levabid; aa5 18:23 Levaquin; aa5 18:23 Naloxone; aa5 18:23 Norepinephrine Bitartrate; aa5 18:23 Penbutolol; aa5 18:23 PENICILLINS; aa5 18:23 PENTAZOCINE; aa5 18:23 Talwin; aa5 18:23 Tape; aa5 18:23 Triamcinolone Acetonide; aa5 - PMHx: 18:23 ALL; CHF; CVA; Hypertension; Myocardial infarction; Pancreatitis; aa5 - PSHx: 18:23 Cholecystectomy; Appendectomy; Hysterectomy; aa5 - Immunization history:: Adult Immunizations unknown. - Social history:: Smoking status: Patient reports the use of cigarette tobacco products, 1 pack a week . Screenin:35 Abuse screen: Denies threats or abuse. Denies injuries from another. Nutritional ca1 screening: No deficits noted. Tuberculosis screening: No symptoms or risk factors identified. Fall Risk IV access (20 points). Assessment: 18:35 General: Appears in no apparent distress. comfortable, Behavior is calm, cooperative, ca1 appropriate for age. Pain: Complains of pain in anterior aspect of left upper chest and mid-sternal area Pain does not radiate. Pain currently is 10 out of 10 on a pain scale. Quality of pain is described as heavy, pressure, Pain began 30 min ago. Is intermittent. Neuro: Level of Consciousness is awake, alert, obeys commands, Oriented to person, place, time, situation. Cardiovascular: Heart tones S1 S2 present Capillary refill < 3 seconds Patient's skin is warm and dry. Rhythm is sinus rhythm. Respiratory: Airway is patent Respiratory effort is even, unlabored, Respiratory pattern is regular, symmetrical, Breath sounds are clear bilaterally. GI: Abdomen is round non-distended, Bowel sounds present X 4 quads. Abd is soft and non tender X 4 quads. GI: Reports nausea. : No signs and/or symptoms were reported regarding the genitourinary system. EENT: No signs and/or symptoms were reported regarding the EENT system. Derm: Skin is intact, is healthy with good turgor, Skin is pink, warm \\T\\ dry. Musculoskeletal: Circulation, motion, and sensation intact. Capillary refill < 3 seconds. 19:35 Reassessment: Patient appears in no apparent distress at this time. Patient and/or ca1 family updated on plan of care and expected duration. Pain level reassessed. Patient is alert, oriented x 3, equal unlabored respirations, skin warm/dry/pink. 20:42 Reassessment: Patient and/or family updated on plan of care and expected duration. Pain ea level reassessed. Patient is alert, oriented x 3, equal unlabored respirations, skin warm/dry/pink. 20:56 Reassessment: Patient and/or family updated on plan of care and expected duration. Pain ea level reassessed. Patient is alert, oriented x 3, equal unlabored respirations, skin warm/dry/pink. Discharge instruction given to patient verbalized the understanding of instruction. Pt left ED ambulatory tolerating well. Pt accompanied by family. Vital Signs: 18:14 BP 123 / 79; Pulse 90; Resp 18 S; Temp 98.6(O); Pulse Ox 99% on R/A; Weight 96.16 kg aa5 (R); Height 5 ft. 2 in. (157.48 cm) (R); Pain 10/10; 19:35 BP 128 / 77; Pulse 84; Resp 16 S; Pulse Ox 100% on R/A; ca1 20:42 BP 136 / 74; Pulse 95; Resp 18; Pulse Ox 98% ; ea 18:14 Body Mass Index 38.77 (96.16 kg, 157.48 cm) aa5 ED Course: 18:14 Patient arrived in ED. as 18:15 Jeremías Teague PA is PHCP. jr8 18:15 Shan Dumont MD is Attending Physician. jr8 18:19 Arm band placed on. EKG completed in triage. Results shown to MD. aa5 18:21 Triage completed. aa5 18:32 XRAY Chest (1 view) In Process Unspecified. EDMS 18:35 Cristine Aguilar, RN is Primary Nurse. ca1 18:35 Patient has correct armband on for positive identification. Placed in gown. Bed in low ca1 position. Call light in reach. Side rails up X2. teletypesetter monitor on. Pulse ox on. NIBP on. Warm blanket given. 18:45 Missed attempt(s): 22 gauge in right antecubital area. Bleeding controlled, band aid ca1 applied, catheter tip intact. 18:45 Patient maintains SpO2 saturation greater than 95% on room air. ca1 19:07 Initial lab(s) drawn, by pa, sent to lab. Inserted saline lock: 20 gauge in left ,using ca1 aseptic technique. breast Blood collected. 20:57 No provider procedures requiring assistance completed. IV discontinued, intact, ea bleeding controlled, No redness/swelling at site. Pressure dressing applied. Administered Medications: 19:20 CANCELLED (Patient Refused): Zofran (Ondansetron) 4 mg IVP once; over 2 minutes kg 19:20 Drug: morphine 4 mg Route: IVP; Site: Other; kg 19:52 Follow up: Response: No adverse reaction; Pain is unchanged, physician notified ca1 19:20 Drug: Phenergan (promethazine) 12.5 mg Route: IVP; Site: Other; kg 20:50 Follow up: Response: No adverse reaction; Nausea is decreased ca1 19:53 Drug: Potassium Chloride 40 mEq Route: PO; ca1 20:50 Follow up: Response: No adverse reaction ca1 19:53 Drug: morphine 4 mg {Note: L breast.} Route: IVP; Site: Other; ca1 20:50 Follow up: Response: No adverse reaction; Pain is decreased; RASS: Alert and Calm (0) ca1 Outcome: 20:49 Discharge ordered by MD. victor 20:57 Discharged to home ambulatory, with family. medhat 20:57 Condition: stable 20:57 Discharge instructions given to patient, Instructed on discharge instructions, follow up and referral plans. Demonstrated understanding of instructions, follow-up care. 20:58 Patient left the ED. ea Signatures: Dispatcher [employer] EDMS Eliz Collazo Audri, RN RN aa5 Jeremías Teague PA PA jr8 Shaunna Guzman RN Cristine Wells ea RN RN Adelina Jaime kg
--- NOTE | 2021-02-18 20:50 | EDPHYS ---
Physician Documentation [facility] Name: Leila Stein Age: 60 yrs Sex: Female : 1960 Arrival Date: 02/18/2021 Time: 18:14 Bed 3 Private MD: ED Physician Shan Dumont HPI: 02/18 19:23 This 60 yrs old Black Female presents to ER via Ambulatory with complaints of Chest jr8 Pain, Abdomninal pain, Nausea/Vomiting. 19:23 The patient presents with abdominal pain in the upper abdomen. Onset: The jr8 symptoms/episode began/occurred acutely, today. The symptoms do not radiate. Associated signs and symptoms: Pertinent positives: nausea and vomiting. The symptoms are described as stabbing. Modifying factors: The symptoms are alleviated by nothing, the symptoms are aggravated by movement, pressure. Severity of pain: At its worst the pain was moderate in the emergency department the pain is unchanged. The patient has experienced similar episodes in the past, several times. The patient has been recently seen by a physician:. Patient with history of pancreatitis. Stated that she thinks she is having a flare up of it. Also complained of chest pain today. Historical: - Allergies: 18:23 Demerol; aa5 18:23 Diphenhydramine; aa5 18:23 Ibuprofen; aa5 18:23 Kenalog; aa5 18:23 levabid; aa5 18:23 Levaquin; aa5 18:23 Naloxone; aa5 18:23 Norepinephrine Bitartrate; aa5 18:23 Penbutolol; aa5 18:23 PENICILLINS; aa5 18:23 PENTAZOCINE; aa5 18:23 Talwin; aa5 18:23 Tape; aa5 18:23 Triamcinolone Acetonide; aa5 - PMHx: 18:23 ALL; CHF; CVA; Hypertension; Myocardial infarction; Pancreatitis; aa5 - PSHx: 18:23 Cholecystectomy; Appendectomy; Hysterectomy; aa5 - Immunization history:: Adult Immunizations unknown. - Social history:: Smoking status: Patient reports the use of cigarette tobacco products, 1 pack a week . ROS: 19:23 Eyes: Negative for injury, pain, redness, and discharge, ENT: Negative for injury, jr8 pain, and discharge, Neck: Negative for injury, pain, and swelling, Respiratory: Negative for shortness of breath, cough, wheezing, and pleuritic chest pain, Back: Negative for injury and pain, MS/Extremity: Negative for injury and deformity, Skin: Negative for injury, rash, and discoloration, Neuro: Negative for headache, weakness, numbness, tingling, and seizure. 19:23 Cardiovascular: Positive for chest pain, Negative for edema, orthopnea, palpitations, paroxysmal nocturnal dyspnea. 19:23 Abdomen/GI: Positive for abdominal pain, nausea and vomiting, diarrhea, Negative for abdominal distension, anorexia, dysphagia, hematemesis, black/tarry stool, rectal pain, rectal bleeding, bowel incontinence, flatulence. Exam: 19:23 Eyes: Pupils equal round and reactive to light, extra-ocular motions intact. Lids and jr8 lashes normal. Conjunctiva and sclera are non-icteric and not injected. Cornea within normal limits. Periorbital areas with no swelling, redness, or edema. ENT: Nares patent. No nasal discharge, no septal abnormalities noted. Tympanic membranes are normal and external auditory canals are clear. Oropharynx with no redness, swelling, or masses, exudates, or evidence of obstruction, uvula midline. Mucous membranes moist. Neck: Trachea midline, no thyromegaly or masses palpated, and no cervical lymphadenopathy. Supple, full range of motion without nuchal rigidity, or vertebral point tenderness. No Meningismus. Cardiovascular: Regular rate and rhythm with a normal S1 and S2. No gallops, murmurs, or rubs. Normal PMI, no JVD. No pulse deficits. Respiratory: Lungs have equal breath sounds bilaterally, clear to auscultation and percussion. No rales, rhonchi or wheezes noted. No increased work of breathing, no retractions or nasal flaring. Back: No spinal tenderness. No costovertebral tenderness. Full range of motion. Skin: Warm, dry with normal turgor. Normal color with no rashes, no lesions, and no evidence of cellulitis. MS/ Extremity: Pulses equal, no cyanosis. Neurovascular intact. Full, normal range of motion. Neuro: Awake and alert, GCS 15, oriented to person, place, time, and situation. Motor strength 5/5 in all extremities. Sensory grossly intact. 19:23 Abdomen/GI: Inspection: obese Bowel sounds: active, all quadrants, Palpation: soft, in all quadrants, mild abdominal tenderness, in the right lower quadrant and left lower quadrant, moderate abdominal tenderness, in the epigastric area, right upper quadrant and left upper quadrant, rebound tenderness, is not appreciated, voluntary guarding, is not appreciated, involuntary guarding, is not appreciated, no appreciated organomegaly, Indicators: McBurney's point is not tender, Martínez's sign is negative, Rovsing's sign is negative. Vital Signs: 18:14 BP 123 / 79; Pulse 90; Resp 18 S; Temp 98.6(O); Pulse Ox 99% on R/A; Weight 96.16 kg aa5 (R); Height 5 ft. 2 in. (157.48 cm) (R); Pain 10/10; 19:35 BP 128 / 77; Pulse 84; Resp 16 S; Pulse Ox 100% on R/A; ca1 20:42 BP 136 / 74; Pulse 95; Resp 18; Pulse Ox 98% ; ea 18:14 Body Mass Index 38.77 (96.16 kg, 157.48 cm) aa5 MDM: 18:15 Patient medically screened. jr8 20:47 Data reviewed: vital signs, nurses notes, old medical records, lab test result(s), EKG. jr8 Data interpreted: Pulse oximetry: on room air is 98 %. Interpretation: normal. Counseling: I had a detailed discussion with the patient and/or guardian regarding: the historical points, exam findings, and any diagnostic results supporting the discharge/admit diagnosis, lab results, radiology results, the need for outpatient follow up, a precipitator, a family practitioner, to return to the emergency department if symptoms worsen or persist or if there are any questions or concerns that arise at home. Response to treatment: the patient's symptoms have mildly improved after treatment. Special discussion: Based on the patient's history, exam, and Dx evaluation, there is no indication for emergent intervention or inpatient Tx. It is understood by the patient/guardian that if the Sx's persist or worsen they need to return immediately for re-evaluation. Based on the patient's Hx, exam, and Dx evaluation, there is no indication for emergent surgery or inpatient Tx. It is understood by the patient/guardian that if the Sx's persist or worsen they need to return immediately for re-evaluation. 02/18 18:19 Order name: Basic Metabolic Panel [facility] 02/18 18:19 Order name: CBC with Diff 02/18 18:19 Order name: LFT's 02/18 18:19 Order name: Magnesium 02/18 18:19 Order name: NT PRO-BNP; Complete Time: 19:41 [facility] 02/18 18:19 Order name: PT-INR; Complete Time: 19:42 [facility] 02/18 18:19 Order name: Troponin (emerg Dept Use Only); Complete Time: 19:41 8 02/18 18:19 Order name: XRAY Chest (1 view); Complete Time: 18:47 02/18 18:19 Order name: Lipase; Complete Time: 19:41 [facility] 02/18 18:20 Order name: Basic Metabolic Panel; Complete Time: 19:41 EDMS 02/18 18:20 Order name: CBC with Automated Diff; Complete Time: 20:39 EDMS 02/18 18:20 Order name: Liver (Hepatic) Function; Complete Time: 19:41 EDMS 02/18 18:20 Order name: Magnesium; Complete Time: 19:41 EDMS 02/18 19:54 Order name: Manual Differential; Complete Time: 20:39 EDMS 02/18 18:19 Order name: EKG; Complete Time: 18:21 [facility] 02/18 18:19 Order name: Cardiac monitoring; Complete Time: 18:52 [facility] 02/18 18:19 Order name: EKG - Nurse/Tech; Complete Time: 18:52 [facility] 02/18 18:19 Order name: IV Saline Lock; Complete Time: 19:07 [facility] 02/18 18:19 Order name: Labs collected and sent; Complete Time: 19:07 [facility] 02/18 18:19 Order name: O2 Per Protocol; Complete Time: 18:53 [facility] 02/18 18:19 Order name: O2 Sat Monitoring; Complete Time: 18:53 [facility] Administered Medications: 19:20 CANCELLED (Patient Refused): Zofran (Ondansetron) 4 mg IVP once; over 2 minutes kg 19:20 Drug: morphine 4 mg Route: IVP; Site: Other; kg 19:52 Follow up: Response: No adverse reaction; Pain is unchanged, physician notified ca1 19:20 Drug: Phenergan (promethazine) 12.5 mg Route: IVP; Site: Other; kg 20:50 Follow up: Response: No adverse reaction; Nausea is decreased ca1 19:53 Drug: Potassium Chloride 40 mEq Route: PO; ca1 20:50 Follow up: Response: No adverse reaction ca1 19:53 Drug: morphine 4 mg {Note: L breast.} Route: IVP; Site: Other; ca1 20:50 Follow up: Response: No adverse reaction; Pain is decreased; RASS: Alert and Calm (0) ca1 Disposition: 02/18/21 20:49 Discharged to Home. Impression: Chest pain, unspecified, Abdominal and pelvic pain. - Condition is Stable. - Discharge Instructions: Abdominal Pain, Adult, Nonspecific Chest Pain, Chronic Pancreatitis. - Medication Reconciliation Form, Thank You Letter, Antibiotic Education, Prescription Opioid Use form. - Follow up: Private Physician; When: 2 - 3 days; Reason: Recheck today's complaints, Continuance of care, Re-evaluation by your physician. - Problem is new. - Symptoms have improved. Addendum: 02/20/2021 19:58 Co-signature as Attending Physician, Shan Dumont MD. r n Signatures: Dispatcher [employer] EDMS Shan Dumont MD MD rn Calderon, Audri RN RN aa5 Jeremías Teague PA PA jr8 Shaunna Guzman RN RN ea Acob, Cheryl RN RN ca1 Adelina Luz kg Corrections: (The following items were deleted from the chart) 02/18 19:20 19:08 Zofran (Ondansetron) 4 mg IVP once; over 2 minutes ordered. jr8 kg 20:58 20:49 02/18/2021 20:49 Discharged to Home. Impression: Chest pain, unspecified; ea Abdominal and pelvic pain. Condition is Stable. Forms are Medication Reconciliation Form, Thank You Letter, Antibiotic Education, Prescription Opioid Use. Follow up: Private Physician; When: 2 - 3 days; Reason: Recheck today's complaints, Continuance of care, Re-evaluation by your physician. Problem is new. Symptoms have improved. jr8
[2021-02-18 21:04] VITALS: TEMP 98.6
[2021-02-18 21:07] VITALS: BP 136/74; O2SAT 98
--- NOTE | 2021-02-20 09:22 | EKG ---
Test Date: 2021-02-18 Test Time: 18:14:09 [employer] Maintainer: ANAHI MEASUREMENT RESULTS: Intervals: Rate: 88 SC: 162 QRSD: 80 QT: 342 QTc: 413 Amasa: P: 49 SC: 162 QRS: -10 T: 17 INTERPRETIVE STATEMENTS: Normal sinus rhythm Minimal voltage criteria for LVH, may be normal variant Borderline ECG Compared to ECG 02/16/2021 21:05:27 Left ventricular hypertrophy now present Myocardial infarct finding no longer present Electronically Signed On 02-20-21 09:17:33 CDT by Lokesh Motta
== END 2021-02-18 20:58 | disposition home or self-care (01) ==
LOC: ER 18:03
DX: R10.2 Pelvic and perineal pain (principal); I10 Essential (primary) hypertension; I25.2 Old myocardial infarction; F17.210 Nicotine dependence, cigarettes, uncomplicated; Z88.0 Allergy status to penicillin; Z88.1 Allergy status to other antibiotic agents; Z88.5 Allergy status to narcotic agent; Z88.6 Allergy status to analgesic agent; Z88.8 Allergy status to other drugs, medicaments and biological substances; Z91.048 Other nonmedicinal substance allergy status
CPT/HCPCS: 93005; 85025; 80048; 36415; 83735; 85610; 80076; 84484; 83690; 83880; 71045; 96375; 96374; 99285; J2550; J2405

== ENCOUNTER 2021-02-23 15:27 | Emergency (ER) | payer OTHER ==
--- OUTSIDE RECORDS SUMMARY | 2021-02-23 15:30 | XMS REPORT | Continuity of Care Document ---
:1960 Author Organization [facility] t Address [address] [place] [address] Support Name Relationship Address Phone [facility] [employer] Primary Care Physician [address] [phone] [place] [address] RULA KIDD MD Attending Provider [address] [phone] [place] [address] RULA KIDD MD Attending Provider [address] [phone] [place] [address] DINO CHAPPELL MD A Emergency Provider [address] [place] [address] TANYA Next of Kin [address] [place] [address] MIKIE CHAPPELL, E Emergency Provider [address] [facility] [address] [place] [address] SHAMAR CHAPPELL, L Emergency Provider [address] [place] [address] DAPHNE CHAPPELL Attending Provider [address] [place] [address] JANICE CHAPPELL, M Emergency Provider [address] [place] [address] OUTTEN DO Emergency Provider [address] [place] [address] JAIRO CHAPPELL, C Emergency Provider [address] [facility] [phone] [place] [address] MALENA CHAPPELL MD R Emergency Provider [address] [place] [address] DO ADAN LEOS Primary Care Physician [address] [place] [address] MD ADRI Emergency Provider Unavailable Unavailable MD RENÉ A Emergency Provider [place] [address] DO NIEVES Emergency Provider [address] [facility] [email or web address] [address] JERARDO RODRIGUES MD Emergency Provider [address] [place] [address] MD SHAMAR L Emergency Provider [address] [place] [address] [place] [address] Care Team Providers Name Role Phone Unavailable Unavailable Unavailable Problems This patient has no known problems. Allergies, Adverse Reactions, Alerts This patient has no known allergies or adverse reactions. Social History Smoking Status Start Date Stop Date Source Never Smoker [facility] Medications Ordered Filled Start [...] transdermal weekly al patch APPLY patch APPLY transderma [facility] ONE PATCH ONE PATCH l patch [...] Comments Source Height 2020-06-11 00:00:00 65 [in_i] Nayeli [facility] BMI (Body Mass 2020-06-11 00:00:00 34.9 kg/m2 [place] [facility] Body Weight 2020-06-11 00:00:00 210 [lb_av] [place] a [facility] Procedures This patient has no known procedures. Plan of Care Planned Activity Planned Date Details Comments Source Future Appointment 2021-03-25 00:00:00 Rosales Huff, [address] [facility] [address]; , [place] Program [id number] Encounters Start End Encounter Admission Attending Care Care Encounter Source Date/Time Date/Time Type Type Clinicians Facility Department ID 2020-12-24 2020-12-24 [place] - [id number] [place] 00:00:00 00:00:00 MD Refugio: Lesli ramires [address] [facility] [address], [facility] [id number] h , Ph. Program (979) --20072020-09-24 2020-09-24 [place] - [id number] [place] 00:00:00 00:00:00 MD Refugio: Lesli ramires [address] [facility] [address], [facility] [id number] h , Ph. Program (979) --20072020-06-11 2020-06-11 Rosales [place] - [id number] [place] 00:00:00 00:00:00 MD Refugio: Lesli ramires [address] [facility] [address], [facility] [id number] h , Ph. Program (979) --20072020-03-12 2020-03-12 Rosales [place] - [id number] [place] 00:00:00 00:00:00 MD Refugio: Lesli ramires [address] [facility] [id number] [facility] , Ph. Program (979) -20072019-12-12 2019-12-12 Rosales [place] - [id number] [place] 00:00:00 00:00:00 MD Refugio: Lesli ramires [address] [facility] [address], [facility], Behavioral [facility] [id number] Progr am , Ph. (979) --20072019-08-22 2019-08-22 [place]ales [place] - [id number] [place] 00:00:00 00:00:00 MD Refugio: Lesli ramires [address] [facility] [address], [facility] [place] [id number] Leonardo bautista , Ph. (263) --20072019-07-18 2019-07-18 [place] [facility] [id number] [facility] MD Refugio: Lesli ramires [address] [facility] [address], [facility] [place] [address] Leonardo bautista , Ph. (973) --20072019-06-11 2019-06-11 Outpatient [facility] CAR [address] [facility] 12:15:00 12:15:00 Results This patient has no known results.
[2021-02-23 16:56] LABS: Urine Blood Negative (Negative); Urine Glucose Negative (Negative); Urine Protein Negative (Negative); Urine Specific Gravity 1.025 (1.005-1.030)
[2021-02-23] MEDS ORDERED: FENTANYL CITR 100 MCG/2 ML ONE ×3 (17:16→19:36)
[2021-02-23] MEDS ORDERED: NA CHLORIDE 0.9% 0 ML ONE (17:17)
[2021-02-23] MEDS ORDERED: ONDANSETRON 4 MG/2 ML VIAL ONE (17:17)
[2021-02-23] MEDS ORDERED: PROMETHAZINE INJ 25 MG/ML AMP ONE ×2 (17:22→18:14)
[2021-02-23 17:25] LABS: Urine Bacteria NONE SEEN /HPF (<20); Urine RBC <5 /HPF (NONE SEEN)
[2021-02-23] MEDS ORDERED: NA CHLORIDE 0.9% 500 ML ONE (18:15)
[2021-02-23] MEDS ORDERED: hydrOXYzine HCL 25 MG TAB ONE (18:53)
[2021-02-23 19:30] LABS: Protime INR 1.17
[2021-02-23 19:38] LABS: Absolute Lymphocytes (CBC) 7.3 K/uL (0.7-4.9); Basophils % 1.2 % (0-1.3); Hematocrit 31.6 % (36.0-45.0); Lymphocytes % 33.1 % (15.3-44.8); MPV 8.3 fL (7.6-11.3); RBC Red Blood Cell Count 4.27 M/uL (3.86-4.86)
[2021-02-23 19:41] LABS: ALT/SGPT 21 U/L (12-78); Alkaline Phosphatase 156 U/L (45-117); BUN Blood Urea Nitrogen 10 mg/dL (7-18); Bicarbonate 27 mmol/L (21-32); Bilirubin Direct < 0.1 mg/dL (0-0.2); Bilirubin Total 0.2 mg/dL (0.2-1.0); Glucose Level 106 mg/dL (74-106); Lipase 259 U/L (73-393); Protein, Total 7.9 g/dL (6.4-8.2); Sodium Level 136 mmol/L (136-145)
[2021-02-23 19:47] LABS: AST/SGOT 28 U/L (15-37); Potassium 5.2 mmol/L (3.5-5.1)
--- NOTE | 2021-02-23 20:39 | RAD REPORT ---
EXAM DESCRIPTION: CT - Abdomen Pelvis W Contrast - 02/23/2021 8:24 pm CLINICAL HISTORY: Abdominal pain. COMPARISON: January 2021 TECHNIQUE: Computed axial tomography of the abdomen and pelvis was obtained. 100 cc Isovue-300 is ad ministered intravenously. Oral contrast was given. All CT scans are performed using dose optimization technique as appropriate and may include automated exposure control or mA/KV adjustment according to patient size. FINDINGS: The liver, spleen, pancreas, adrenals and kidneys appear unremarkable. Cholecystectomy/hysterectomy. No adnexal mass. No evidence of diverticulitis/colitis IMPRESSION: No acute abnormality displayed
[2021-02-23 21:34] LABS: Blood Morphology Comment NOTED (NOT SEEN); Hypochromasia 1+; Platelet Estimate INCR
--- NOTE | 2021-02-23 21:35 | ER ---
Nurse's Notes [facility] Name: Leila Stein Age: 60 yrs Sex: Female : 1960 Arrival Date: 02/23/2021 Time: 15:32 Bed 8 Private MD: Diagnosis: Generalized abdominal pain;Nausea and vomiting Presentation: 02/23 15:47 Chief complaint: Patient states: N/V/ general body weakness x 2 days. Been passing out ca1 dark stools. My belly is sore too. I was seen by Dr. Mila ROSAS and she thinks I can be bleeding. I also have chronic pancreatitis and I see Dr. Roberto for that. Coronavirus screen: Client denies travel out of the [place] in the last 14 days. nausea, vomiting. Client presents with at least one sign or symptom that may indicate coronavirus-19. Standard/surgical mask placed on the client. Provider contacted for isolation considerations. Ebola Screen: Patient negative for fever greater than or equal to 101.5 degrees Fahrenheit, and additional compatible Ebola Virus Disease symptoms Patient denies exposure to infectious person. Patient denies travel to an Ebola-affected area in the 21 days before illness onset. No symptoms or risks identified at this time. Initial Sepsis Screen: Does the patient meet any 2 criteria? No. Patient's initial sepsis screen is negative. Does the patient have a suspected source of infection? No. Patient's initial sepsis screen is negative. Risk Assessment: Do you want to hurt yourself or someone else? Patient reports no desire to harm self or others. Onset of symptoms was February 23, 2021. 15:47 Method Of Arrival: Ambulatory ca1 15:47 Acuity: JARROD 3 ca1 Historical: - Allergies: 15:52 Demerol; ca1 15:52 Diphenhydramine; ca1 15:52 Ibuprofen; ca1 15:52 Kenalog; ca1 15:52 levabid; ca1 15:52 Levaquin; ca1 15:52 Naloxone; ca1 15:52 Norepinephrine Bitartrate; ca1 15:52 PENICILLINS; ca1 15:52 PENTAZOCINE; ca1 15:52 Talwin; ca1 15:52 Tape; ca1 15:52 Triamcinolone Acetonide; ca1 15:52 Penbutolol; ca1 - Home Meds: 15:52 alprazolam 0.5 mg Oral tab [Active]; carvedilol 6.25 mg Oral tab 1 tab 2 times per day ca1 [Active]; Creon 24,000-76,000 -120,000 unit Oral cpDR [Active]; gabapentin 100 mg Oral cap 2 caps BID [Active]; hydroxyzine HCl 25 mg Oral tab 1 tab every 4-6 hrs as needed [Active]; meclizine 12.5 mg Oral tab 2 tabs 3 times per day [Active]; methocarbamol 750 mg Oral tab 1 tab every 8 hours [Active]; losartan 100 mg Oral tab 1 tab once daily [Active]; metoclopramide HCl 10 mg Oral tab 1 tab twice a day [Active]; montelukast 10 mg Oral tab 1 tab once daily [Active]; omeprazole 40 mg Oral cpDR 1 cap once daily [Active]; risperidone 1 mg Oral tab 1 tab once daily [Active]; sertraline 50 mg Oral tab 1 tab once daily [Active]; furosemide 40 mg Oral tab 1 tab once daily [Active]; - PMHx: 15:52 CHF; Hypertension; Myocardial infarction; Pancreatitis; CVA; ALL; ca1 - PSHx: 15:52 Cholecystectomy; Appendectomy; Hysterectomy; ca1 - Immunization history:: Client reports receiving the 1st dose of the Covid vaccine, Flu vaccine is up to date. - Social history:: Smoking status: Patient reports the use of cigarette tobacco products, smokes one-half pack cigarettes per day. Screenin:02 Abuse screen: Denies threats or abuse. Denies injuries from another. Nutritional ld1 screening: No deficits noted. Tuberculosis screening: No symptoms or risk factors identified. Fall Risk None identified. Assessment: 16:02 General: Appears in no apparent distress. comfortable, Behavior is calm, cooperative, ld1 appropriate for age. Pain: Complains of pain in abdomen Pain currently is 10 out of 10 on a pain scale. Quality of pain is described as stabbing, Pain began 2-3 days ago. Is continuous. Pain: Current management is with Took 4 Tylenol today. Neuro: Level of Consciousness is awake, alert, obeys commands, Oriented to person, place, time, situation. Cardiovascular: Capillary refill < 3 seconds Patient's skin is warm and dry. Respiratory: Airway is patent Respiratory effort is even, unlabored, Respiratory pattern is regular, symmetrical. GI: Abdomen is round non-distended, Reports diarrhea, nausea, vomiting, Patient reports dark colored stool. Pain 10/10 beginning 3 days ago. Reported taking 4 tylenol today to try to relieve the pain. : No signs and/or symptoms were reported regarding the genitourinary system. EENT: No signs and/or symptoms were reported regarding the EENT system. Derm: No signs and/or symptoms reported regarding the dermatologic system. Musculoskeletal: No signs and/or symptoms reported regarding the musculoskeletal system. 19:00 Reassessment: Patient appears in no apparent distress at this time. Patient and/or jb4 family updated on plan of care and expected duration. Pain level reassessed. Patient is alert, oriented x 3, equal unlabored respirations, skin warm/dry/pink. 20:00 Reassessment: Patient appears in no apparent distress at this time. Patient and/or jb4 family updated on plan of care and expected duration. Pain level reassessed. Patient is alert, oriented x 3, equal unlabored respirations, skin warm/dry/pink. Vital Signs: 15:47 BP 104 / 63; Pulse 78; Resp 16 S; Temp 99(TE); Pulse Ox 98% on R/A; Weight 86.18 kg ca1 (R); Height 5 ft. 2 in. (157.48 cm) (R); Pain 10/10; 16:02 BP 104 / 63; Pulse 78; Resp 18; Temp 99.0(O); Pulse Ox 98% on R/A; Weight 86.18 kg; ld1 Height 5 ft. 6 in. (167.64 cm); Pain 10/10; 19:49 BP 125 / 82; Pulse 100; Resp 16; Pulse Ox 98% on R/A; jm8 22:11 BP 121 / 78; Pulse 77; Resp 16; Pulse Ox 99% ; jm8 16:02 Body Mass Index 30.67 (86.18 kg, 167.64 cm) ld1 ED Course: 15:32 Patient arrived in ED. ds1 15:50 Triage completed. ca1 15:52 Arm band placed on right wrist. ca1 15:53 Denzel Crain PA is PHCP. cp 15:53 Denzel Sharma MD is Attending Physician. cp 16:02 Oriana Cardenas RN is Primary Nurse. ld1 16:02 Patient has correct armband on for positive identification. Placed in gown. Bed in low ld1 position. Call light in reach. Side rails up X 1. Pulse ox on. NIBP on. Door closed. Noise minimized. Warm blanket given. 16:02 No provider procedures requiring assistance completed. ld1 16:43 Inserted saline lock: 22 gauge in left antecubital area, using aseptic technique. jd3 17:48 Inserted saline lock: 22 gauge in right upper arm, using aseptic technique. aa5 20:23 CT Abd/Pelvis - PO and IV Contrast In Process Unspecified. EDMS 21:33 Jacinto Florez MD is Referral Physician. cp 22:12 IV discontinued, intact. jm8 Administered Medications: Discontinued: NS 0.9% 500 ml IV at bolus once 17:54 Not Given (Physician Discretion): Zofran (Ondansetron) 4 mg IVP once; over 2 minutes cp 18:06 Drug: fentaNYL (PF) 25 mcg Route: IVP; Site: right upper arm; ld1 22:10 Follow up: Response: No adverse reaction; Pain is decreased jm8 18:06 Drug: NS 0.9% 500 ml Route: IV; Rate: bolus; Site: right upper arm; ld1 18:12 Drug: Phenergan (promethazine) 25 mg Route: IVP; Site: right upper arm; ld1 22:09 Follow up: Response: No adverse reaction; Pain is decreased jm8 18:41 Drug: hydrOXYzine 25 mg Route: PO; jd3 22:09 Follow up: Response: No adverse reaction jm8 19:21 Drug: fentaNYL (PF) 25 mcg Route: IVP; Site: right antecubital; jm8 22:09 Follow up: Response: No adverse reaction; Pain is decreased jm8 22:09 Not Given (Patient Refused): morphine 2 mg IVP once; (PAIN>8) RASS on ADMN: Combtv4, jm8 Very Agttd3, Agttd2, Rstlss1, AlertClm0, Drwsy-1, LtSdtn-2, ModSdtn-3, DpSdtn-4, UnArsble-5 x2 Outcome: 21:34 Discharge ordered by . cp 22:11 Discharged to home jm8 22:11 Discharged to home ambulatory. 22:11 Condition: good 22:11 Discharge instructions given to patient. 22:12 Patient left the ED. jm8 Signatures: Dispatcher [employer] EDNV Gauri Lovelace ds1 Hortensia Spicer, RN RN aa5 Denzel Crain PA PA cp Bryson, James RN RN jb4 Denis Spencer RN RN jd3 Cristine Aguilar RN RN ca1 Oriana Cardenas RN RN ld1 Rajendra Hyatt RN RN jm8
--- NOTE | 2021-02-23 21:35 | EDPHYS ---
Physician Documentation [facility] Name: Leila Stein Age: 60 yrs Sex: Female : 1960 Arrival Date: 02/23/2021 Time: 15:32 Bed 8 Private MD: ED Physician Denzel Sharma HPI: 02/23 16:20 This 60 yrs old Black Female presents to ER via Ambulatory with complaints of Weakness, cp Nausea/Vomiting. 16:20 The patient presents with abdominal pain that is diffuse. cp 16:20 Onset: The symptoms/episode began/occurred 2 day(s) ago. Associated signs and symptoms: cp Pertinent positives: nausea and vomiting, dark colored stools, Pertinent negatives: chest pain, constipation, diarrhea, dysuria, fever. 16:20 The symptoms are described as constant. Modifying factors: the symptoms are aggravated cp by pressure. Severity of pain: in the emergency department the pain is unchanged despite home interventions. Historical: - Allergies: 15:52 Demerol; ca1 15:52 Diphenhydramine; ca1 15:52 Ibuprofen; ca1 15:52 Kenalog; ca1 15:52 levabid; ca1 15:52 Levaquin; ca1 15:52 Naloxone; ca1 15:52 Norepinephrine Bitartrate; ca1 15:52 PENICILLINS; ca1 15:52 PENTAZOCINE; ca1 15:52 Talwin; ca1 15:52 Tape; ca1 15:52 Triamcinolone Acetonide; ca1 15:52 Penbutolol; ca1 - Home Meds: 15:52 alprazolam 0.5 mg Oral tab [Active]; carvedilol 6.25 mg Oral tab 1 tab 2 times per day ca1 [Active]; Creon 24,000-76,000 -120,000 unit Oral cpDR [Active]; gabapentin 100 mg Oral cap 2 caps BID [Active]; hydroxyzine HCl 25 mg Oral tab 1 tab every 4-6 hrs as needed [Active]; meclizine 12.5 mg Oral tab 2 tabs 3 times per day [Active]; methocarbamol 750 mg Oral tab 1 tab every 8 hours [Active]; losartan 100 mg Oral tab 1 tab once daily [Active]; metoclopramide HCl 10 mg Oral tab 1 tab twice a day [Active]; montelukast 10 mg Oral tab 1 tab once daily [Active]; omeprazole 40 mg Oral cpDR 1 cap once daily [Active]; risperidone 1 mg Oral tab 1 tab once daily [Active]; sertraline 50 mg Oral tab 1 tab once daily [Active]; furosemide 40 mg Oral tab 1 tab once daily [Active]; - PMHx: 15:52 CHF; Hypertension; Myocardial infarction; Pancreatitis; CVA; ALL; ca1 - PSHx: 15:52 Cholecystectomy; Appendectomy; Hysterectomy; ca1 - Immunization history:: Client reports receiving the 1st dose of the Covid vaccine, Flu vaccine is up to date. - Social history:: Smoking status: Patient reports the use of cigarette tobacco products, smokes one-half pack cigarettes per day. ROS: 16:30 Constitutional: Negative for body aches, chills, fever, poor PO intake. cp 16:30 Eyes: Negative for injury, pain, redness, and discharge. cp 16:30 ENT: Negative for ear pain, sore throat, difficulty swallowing, difficulty handling secretions. 16:30 Cardiovascular: Negative for chest pain. 16:30 Respiratory: Negative for cough, shortness of breath, wheezing. 16:30 Abdomen/GI: Positive for abdominal pain, nausea and vomiting, black/tarry stool, Negative for diarrhea, constipation, rectal bleeding. 16:30 Back: Negative for radiated pain. 16:30 : Negative for urinary symptoms, flank pain. 16:30 Neuro: Positive for weakness, Negative for altered mental status, dizziness, headache. 16:30 All other systems are negative. Exam: 16:35 Constitutional: The patient appears in no acute distress, alert, awake, cp non-diaphoretic, non-toxic, well developed, well nourished. 16:35 Head/Face: Normocephalic, atraumatic. cp 16:35 Eyes: Periorbital structures: appear normal, Conjunctiva: normal, no exudate, no injection, Sclera: no appreciated abnormality, Lids and lashes: appear normal, bilaterally. 16:35 ENT: External ear(s): are unremarkable, Nose: is normal, Mouth: Lips: moist, Oral mucosa: moist, Posterior pharynx: Airway: no evidence of obstruction, patent. 16:35 Chest/axilla: Inspection: normal, Palpation: is normal, no crepitus, no tenderness. 16:35 Cardiovascular: Rate: normal. 16:35 Respiratory: the patient does not display signs of respiratory distress, Respirations: normal, no use of accessory muscles, no retractions, labored breathing, is not present, Breath sounds: are clear throughout, no decreased breath sounds, no stridor, no wheezing. 16:35 Abdomen/GI: Inspection: abdomen appears normal, Bowel sounds: active, all quadrants, Palpation: soft, in all quadrants, severe abdominal tenderness, in all quadrants, rebound tenderness, is not appreciated, voluntary guarding, is elicited in all quadrants. 16:35 Back: CVA tenderness, is absent. 16:35 Neuro: Orientation: to person, place \T\ time. Mentation: is normal. Vital Signs: 15:47 BP 104 / 63; Pulse 78; Resp 16 S; Temp 99(TE); Pulse Ox 98% on R/A; Weight 86.18 kg ca1 (R); Height 5 ft. 2 in. (157.48 cm) (R); Pain 10/10; 16:02 BP 104 / 63; Pulse 78; Resp 18; Temp 99.0(O); Pulse Ox 98% on R/A; Weight 86.18 kg; ld1 Height 5 ft. 6 in. (167.64 cm); Pain 10/10; 19:49 BP 125 / 82; Pulse 100; Resp 16; Pulse Ox 98% on R/A; jm8 22:11 BP 121 / 78; Pulse 77; Resp 16; Pulse Ox 99% ; jm8 16:02 Body Mass Index 30.67 (86.18 kg, 167.64 cm) ld1 MDM: 16:07 Patient medically screened. [facility] 21:33 Data reviewed: vital signs, nurses notes, lab test result(s), radiologic studies, CT cp scan. 21:33 Counseling: I had a detailed discussion with the patient and/or guardian regarding: the cp historical points, exam findings, and any diagnostic results supporting the discharge/admit diagnosis, lab results, radiology results, the need for outpatient follow up, a policy service coordinator, to return to the emergency department if symptoms worsen or persist or if there are any questions or concerns that arise at home. Response to treatment: the patient's symptoms have markedly improved after treatment, VSS. Pain markedly improved. CT abdomen negative for acute findings. WBC elevated but similar results observed chronically. Will discharge to home for continued monitoring. 02/23 16:11 Order name: Basic Metabolic Panel; Complete Time: 20:06 cp 02/23 16:11 Order name: CBC with Diff cp 02/23 20:48 Interpretation: Normal except: WBC 22.20; HGB 10.1; HCT 31.6; MCV 74.1; MCH 23.7; PLT cp 455; RDW 18.5; NEUT A 12.7; LYMA 7.3; MNA 1.7. 02/23 16:11 Order name: Hepatic Function; Complete Time: 20:06 cp 02/23 16:11 Order name: Lipase; Complete Time: 20:06 cp 02/23 16:11 Order name: PT-INR; Complete Time: 20:06 cp 02/23 16:11 Order name: Ptt, Activated; Complete Time: 20:06 cp 02/23 16:20 Order name: Urine Microscopic Only; Complete Time: 17:53 cp 02/23 17:53 Interpretation: Normal except: SQEPI 5-10. cp 02/23 16:20 Order name: CT Abd/Pelvis - PO and IV Contrast; Complete Time: 20:48 cp 02/23 16:56 Order name: Urine Dipstick-Ancillary; Complete Time: 17:53 EDMS 02/23 21:13 Order name: Manual Differential EDMS 02/23 16:11 Order name: IV Saline Lock; Complete Time: 16:42 cp 02/23 16:11 Order name: Labs collected and sent; Complete Time: 19:09 cp Administered Medications: Discontinued: NS 0.9% 500 ml IV at bolus once 17:54 Not Given (Physician Discretion): Zofran (Ondansetron) 4 mg IVP once; over 2 minutes cp 18:06 Drug: fentaNYL (PF) 25 mcg Route: IVP; Site: right upper arm; ld1 22:10 Follow up: Response: No adverse reaction; Pain is decreased jm8 18:06 Drug: NS 0.9% 500 ml Route: IV; Rate: bolus; Site: right upper arm; ld1 18:12 Drug: Phenergan (promethazine) 25 mg Route: IVP; Site: right upper arm; ld1 22:09 Follow up: Response: No adverse reaction; Pain is decreased jm8 18:41 Drug: hydrOXYzine 25 mg Route: PO; jd3 22:09 Follow up: Response: No adverse reaction jm8 19:21 Drug: fentaNYL (PF) 25 mcg Route: IVP; Site: right antecubital; 22:09 Follow up: Response: No adverse reaction; Pain is decreased 22:09 Not Given (Patient Refused): morphine 2 mg IVP once; (PAIN>8) RASS on ADMN: Combtv4, jm8 Very Agttd3, Agttd2, Rstlss1, AlertClm0, Drwsy-1, LtSdtn-2, ModSdtn-3, DpSdtn-4, UnArsble-5 x2 Disposition: 02/24 07:29 Co-signature as Attending Physician, Denzel Sharma MD I agree with the assessment and [facility] plan of care. Disposition: 02/23/21 21:34 Discharged to Home. Impression: Generalized abdominal pain, Nausea and vomiting. - Condition is Stable. - Discharge Instructions: Abdominal Pain, Adult, Nausea and Vomiting, Adult. - Prescriptions for Bentyl 20 mg Oral Tablet - take 2 tablets by ORAL route every 6 hours As needed; 30 tablet. promethazine 25 mg Oral Tablet - take 1 tablet by ORAL route every 6 hours As needed; 20 tablet. - Medication Reconciliation Form, Thank You Letter, Antibiotic Education, Prescription Opioid Use form. - Follow up: Jacinto Florez MD; When: 1 - 2 days; Reason: Recheck today's complaints. - Problem is an acute exacerbation. - Symptoms have improved. Signatures: Dispatcher [employer] Denzel Pacheco MD MD cha Page, Corey, PA PA cp Davies, Jonathon, RN RN jd3 Acob, Cheryl, RN RN ca1 Oriana Cardenas RN RN ld1 Rajendra Hyatt RN RN jm8 Corrections: (The following items were deleted from the chart) 02/23 20:29 16:20 Associated signs and symptoms: Pertinent positives: nausea and vomiting, dark cp colored stools, cp 20:48 20:48 Normal except: WBC 22.20; HGB 10.1; HCT 31.6; MCV 74.1; MCH 23.7; PLT 455; RDW cp 18.5. cp 20:48 20:48 Normal except: WBC 22.20; HGB 10.1; HCT 31.6; MCV 74.1; MCH 23.7; PLT 455; RDW cp 18.5; NEUT A 12.7. cp 20:48 20:48 Normal except: WBC 22.20; HGB 10.1; HCT 31.6; MCV 74.1; MCH 23.7; PLT 455; RDW cp 18.5; NEUT A 12.7; LYMA 7.3. cp 22:12 21:34 02/23/2021 21:34 Discharged to Home. Impression: Generalized abdominal pain; jm8 Nausea and vomiting. Condition is Stable. Forms are Medication Reconciliation Form, Thank You Letter, Antibiotic Education, Prescription Opioid Use. Follow up: Jacinto Florez; When: 1 - 2 days; Reason: Recheck today's complaints. Problem is an acute exacerbation. Symptoms have improved. cp
[2021-02-23 22:37] VITALS: TEMP 99
[2021-02-23 22:40] VITALS: BP 121/78; O2SAT 99
== END 2021-02-23 22:12 | disposition home or self-care (01) ==
LOC: ER 15:27
DX: R10.84 Generalized abdominal pain (principal); F17.210 Nicotine dependence, cigarettes, uncomplicated; I10 Essential (primary) hypertension; I50.9 Heart failure, unspecified; Z88.0 Allergy status to penicillin; Z88.1 Allergy status to other antibiotic agents; Z88.5 Allergy status to narcotic agent; Z88.6 Allergy status to analgesic agent; Z88.8 Allergy status to other drugs, medicaments and biological substances; Z91.048 Other nonmedicinal substance allergy status
CPT/HCPCS: 85025; 80048; 36415; 85610; 80076; 85730; 83690; 74177; 99284; Q9967; J2550 ×2; J3010 ×2; J7040; 81003; 81015; J2405